=== PATIENT | male | born 1930 | race Caucasian/White ===

== ENCOUNTER 2017-12-15 14:03 | Inpatient (IN) | payer OTHER ==
[~2017-12-15] VITALS: Ht 182.9 cm; Wt 77.8 kg
[~2017-12-15 14:03] MED LIST: AMIO200T4 PO; ASPI81TA21 PO; CHOL100010 PO; INSUINJ4 SC; LISI20TA3 PO; MAGNTAB4 PO; TAMS0.4C59 PO; WARF5INJ PO
[2017-12-15] MEDS ORDERED: CEFTRIAXONE SOD INJ 1 GM ADDVIAL IV STA (15:25)
[2017-12-15] MEDS ORDERED: SODIUM CHLORIDE 0.9% 1000ML 1,000 ML IV STA (15:25)
[2017-12-15] MEDS ORDERED: ALBUT/IPRATROP 3MG/0.5MG NEB 3 ML VIAL INH STA (15:25)
[2017-12-15] MEDS ORDERED: AZITHROMYCIN IV 500 MG in DEXTROSE 5% 250ML 250 ML IV ONE (15:30)
--- NOTE | 2017-12-15 15:58 | DIAGNOSTIC IMAGING REPORT ---
CHEST ONE VIEW PORTABLE CLINICAL HISTORY: Fever, sepsis COMPARISON STUDY: 05/22/2013 FINDINGS: The heart is normal in size. There are left basal airspace opacities, suspicious for a pneumonitis. Films subsequent to treatment are recommended in follow-up.[ IMPRESSION: Subtle left basal airspace opacity suspicious for a pneumonia. Films subsequent to treatment are recommended in follow-up. Electronically signed by: Abdon Perry M.D. 12/15/2017 3:57 PM Dictated Date/Time: 12/15/2017 3:56 PM
[2017-12-15 16:13] LABS: HEMATOCRIT 42.9 % (42-52); HEMOGLOBIN 14.5 g/dL (14.0-18.0); MEAN CELL VOLUME 91.1 fL (80-100); MEAN CORPUSCULAR HEMOGLOBIN 30.8 pg (25-34); MEAN CORPUSCULAR HGB CONC 33.8 g/dl (32-36); MEAN PLATELET VOLUME 9.3 fL (7.4-10.4); PLATELET COUNT 192 K/uL (130-400); RED CELL DISTRIBUTION WIDTH CV 14.1 % (11.5-14.5); RED CELL DISTRIBUTION WIDTH SD 47.2 fL (36.4-46.3); WHITE BLOOD COUNT 16.16 K/uL (4.8-10.8)
[2017-12-15 16:35] LABS: INFLUENZA B ANTIGEN Neg for Influ B (NEG)
[2017-12-15 16:36] LABS: ALKALINE PHOSPHATASE 90 U/L (45-117); ALT/SGPT 28 U/L (12-78); AST/SGOT 19 U/L (15-37); BLOOD UREA NITROGEN 33 mg/dl (7-18); CARBON DIOXIDE 25 mmol/L (21-32); CKMB 2.9 ng/ml (0.5-3.6); CREATININE 2.29 mg/dl (0.60-1.40); GLUCOSE 365 mg/dl (70-99); POTASSIUM 4.1 mmol/L (3.5-5.1); SODIUM 130 mmol/L (136-145)
[2017-12-15] MEDS ORDERED: LISI-725 PO (16:37)
[2017-12-15] MEDS ORDERED: INSDGI SC (16:37)
[2017-12-15] MEDS ORDERED: CHOL20007 PO (16:37)
[2017-12-15] MEDS ORDERED: CMD5 PO (16:37)
[2017-12-15] MEDS ORDERED: PRLSR20 PO (16:37)
[2017-12-15] MEDS ORDERED: TAMS0.4C38 PO (16:37)
[2017-12-15] MEDS ORDERED: CRD200 PO (16:37)
[2017-12-15 16:39] LABS: BASO % 0.1 %; BASO ABS # 0.02 K/uL (0-0.2); IG# 0.42 K/uL (0.00-0.02); LYMPH % 6.5 %; LYMPH ABS # 1.05 K/uL (1.2-3.4); MONO % 8.5 %; MONO ABS # 1.38 K/uL (0.11-0.59); NEUT % 82.3 %; NEUT ABS # 13.29 K/uL (1.4-6.5)
[2017-12-15 16:41] LABS: INR 4.5 (0.9-1.1)
[2017-12-15 16:42] LABS: PTT PATIENT 54.1 SECONDS (21.0-31.0)
[2017-12-15] MEDS ORDERED: INSULIN HUMAN REGULAR PER UNIT 10 UNITS in SYRINGE 0 ML IV STA (17:09)
[2017-12-15] MEDS ORDERED: INSULIN IV INFUSION PROTOCOL STA (17:09)
[2017-12-15] MEDS ORDERED: MAGNESIUM HYDROXIDE SUSP 30 ML UDC PO PRN (17:15)
[2017-12-15] MEDS ORDERED: ALUMINUM/MAGNESIUM/SIMETH (MAALOX MAX) 30 ML UDC PO PRN (17:15)
[2017-12-15] MEDS ORDERED: POLYETHYLENE (MIRALAX) 17 GM PACK PO PRN (17:15)
[2017-12-15] MEDS ORDERED: ONDANSETRON INJ 2 MG/ML 2 ML VIAL IV PRN (17:15)
[2017-12-15] MEDS ORDERED: HHS GOAL RANGE 250-350 mg/dl ONE (17:15)
[2017-12-15] MEDS ORDERED: SEVERE STRESS LEVEL ONE (17:15)
[2017-12-15] MEDS ORDERED: PIPERACILL/TAZOBAC CONSULT ACTIVE PRN (17:30)
--- NOTE | 2017-12-15 17:33 | EMERGENCY ROOM VISIT NOTE ---
History Report prepared by Jacob: Martin Del Castillo Under the Supervision of: Dr. Edgar Mendieta D.O. First contact with patient: 15:18 Chief Complaint: COUGH Stated Complaint: COUGH History of Present Illness The patient is an 87 year old male who presents to the Emergency Room with complaints of a persistent cough that began roughly two weeks ago. The patient' s notes that the patient has been coughing for two weeks, so she took him to see his PCP at [facility] today. She did not like the way his breath sounds sounded to her so she suggested he go to the emergency department immediately. The patient notes that his cough has been producing a yellow-green mucous. He also complains of some unusual shortness of breath with exertion and worsening fatigue, but denies any chest pain. The patient has never been on oxygen at home before. The patient has a healing laceration above his right eye and notes that it was due to a mechanical fall. His daughter added that he is unsteady on his feet because of back complications. Source of History: patient, family Onset: 2 weeks [employer] Position: other (Respiratory) Quality: other (Cough) Timing: other (Persistent) Associated Symptoms: + SOB, No chest pain Review of Systems See HPI for pertinent positives & negatives. A total of 10 systems reviewed and were otherwise negative. Past Medical & Surgical Medical Problems: (1) Hyperglycemia due to type 2 diabetes mellitus (2) Pneumonia (3) Reduced LVEF Family History Omitted secondary to age. Social History Smoking Status: Never Smoker Drug Use: none Marital Status: Housing Status: lives with significant other Occupation Status: retired Current/Historical Medications Scheduled Amiodarone HCl (Amiodarone HCl), 200 MG PO DAILY Cholecalciferol (Vitamin D3), 2,000 UNITS PO DAILY Insulin Glargine (Lantus), 22 UNITS SC DAILY Lisinopril (Zestril), 20 MG PO BID Omeprazole (Prilosec), 20 MG PO DAILY Tamsulosin Hcl (Flomax), 0.4 MG PO BID Warfarin Sod (Coumadin), 2.5-5 MG PO UD Allergies Coded Allergies: No Known Allergies (Unverified , 05/19/13) Physical Exam Vital Signs Date Time Temp Pulse Resp B/P (MAP) Pulse Ox O2 Delivery O2 Flow Rate FiO2 12/15/17 17:30 71 20 133/82 93 Nasal Cannula 2.0 12/15/17 16:44 73 12/15/17 16:31 73 20 155/64 95 Nasal Cannula 2.0 12/15/17 15:26 70 24 159/66 95 Nasal Cannula 2.0 12/15/17 14:11 Nasal Cannula 2.0 12/15/17 14:11 86 Room Air 12/15/17 14:07 36.9 75 24 135/72 86 Room Air Physical Exam CONSTITUTIONAL/VITAL SIGNS: Reviewed / noted above. GENERAL: Non-toxic in appearance. INTEGUMENTARY: Warm, dry, and [place]. HEAD: Normocephalic. EYES: without scleral icterus or trauma. ENT/OROPHARYNX: clear and moist. LYMPHADENOPATHY/NECK: Is supple without lymphadenopathy or meningismus. RESPIRATORY: There is scattered rhonchi and wheezes bilaterally. Frequent cough on exam. CARDIOVASCULAR: Regular rate and rhythm. GI/ABDOMEN: Soft and nontender. No organomegaly or pulsatile mass. No rebound or guarding. Normal bowel sounds. EXTREMITIES: Warm and well perfused. BACK: No CVA tenderness. NEUROLOGICAL: Intact without focal deficits. PSYCHIATRIC: normal affect. MUSCULOSKELETAL: Normally developed with good muscle tone. Medical Decision & Procedures ER Provider Diagnostic Interpretation: Radiology results as stated below per my review and radiologist interpretation: CHEST ONE VIEW PORTABLE CLINICAL HISTORY: Fever, sepsis COMPARISON STUDY: 05/22/2013 FINDINGS: The heart is normal in size. There are left basal airspace opacities, suspicious for a pneumonitis. Films subsequent to treatment are recommended in follow-up.[ IMPRESSION: Subtle left basal airspace opacity suspicious for a pneumonia. Films subsequent to treatment are recommended in follow-up. Electronically signed by: Abdon Perry M.D. 12/15/2017 3:57 PM Dictated Date/Time: 12/15/2017 3:56 PM Laboratory Results 12/15/17 15:40 Red Blood Count 4.71, Mean Corpuscular Volume 91.1, Mean Corpuscular Hemoglobin 30.8, Mean Corpuscular Hemoglobin Concent 33.8, Mean Platelet Volume 9.3, Neutrophils (%) (Auto) 82.3, Lymphocytes (%) (Auto) 6.5, Monocytes (%) (Auto) 8.5, Eosinophils (%) (Auto) 0.0, Basophils (%) (Auto) 0.1, Neutrophils # (Auto) 13.29, Lymphocytes # (Auto) 1.05, Monocytes # (Auto) 1.38, Eosinophils # (Auto) 0.00, Basophils # (Auto) 0.02 12/15/17 15:40 Test 12/15/17 15:40 12/15/17 16:11 12/15/17 17:14 White Blood Count 16.16 K/uL (4.8-10.8) Red Blood Count 4.71 M/uL (4.7-6.1) Hemoglobin 14.5 g/dL (14.0-18.0) Hematocrit 42.9 % (42-52) Mean Corpuscular Volume 91.1 fL (80-100) Mean Corpuscular Hemoglobin 30.8 pg (25-34) Mean Corpuscular Hemoglobin Concent 33.8 g/dl (32-36) Platelet Count 192 K/uL (130-400) Mean Platelet Volume 9.3 fL (7.4-10.4) Neutrophils (%) (Auto) 82.3 % Lymphocytes (%) (Auto) 6.5 % Monocytes (%) (Auto) 8.5 % Eosinophils (%) (Auto) 0.0 % Basophils (%) (Auto) 0.1 % Neutrophils # (Auto) 13.29 K/uL (1.4-6.5) Lymphocytes # (Auto) 1.05 K/uL (1.2-3.4) Monocytes # (Auto) 1.38 K/uL (0.11-0.59) Eosinophils # (Auto) 0.00 K/uL (0-0.5) Basophils # (Auto) 0.02 K/uL (0-0.2) RDW Standard Deviation 47.2 fL (36.4-46.3) RDW Coefficient of Variation 14.1 % (11.5-14.5) Immature Granulocyte % (Auto) 2.6 % Immature Granulocyte # (Auto) 0.42 K/uL (0.00-0.02) Dohle Bodies OCCASIONAL Prothrombin Time 45.7 SECONDS (9.0-12.0) Prothromb Time International Ratio 4.5 (0.9-1.1) Activated Partial Thromboplast Time 54.1 SECONDS (21.0-31.0) Partial Thromboplastin Ratio 2.1 Anion Gap 10.0 mmol/L (3-11) Est Creatinine Clear Calc Drug Dose 25.4 ml/min Estimated GFR () 28.9 Estimated GFR (Non- 24.9 BUN/Creatinine Ratio 14.2 (10-20) Calcium Level 9.0 mg/dl (8.5-10.1) Total Bilirubin 1.0 mg/dl (0.2-1) Direct Bilirubin 0.3 mg/dl (0-0.2) Aspartate Amino Transf (AST/SGOT) 19 U/L (15-37) Alanine Aminotransferase (ALT/SGPT) 28 U/L (12-78) Alkaline Phosphatase 90 U/L (45-117) Total Creatine Kinase 111 U/L (39-308) Creatine Kinase MB 2.9 ng/ml (0.5-3.6) Creatine Kinase MB Ratio 2.6 (0-3.0) Troponin I < 0.015 ng/ml (0-0.045) Total Protein 8.0 gm/dl (6.4-8.2) Albumin 3.0 gm/dl (3.4-5.0) Beta-Hydroxybutyric Acid 31.08 mg/dL (0.2-2.81) Influenza Type A Antigen Neg for Influ A (NEG) Influenza Type B Antigen Neg for Influ B (NEG) Laboratory results as stated above per my review. Medications Administered Medications (Trade) Dose Ordered Sig/Krystal Route Start Time Stop Time Status Last Admin Dose Admin Sodium Chloride 1,000 ml @ 250 mls/hr Q4H STAT IV 12/15/17 15:25 12/15/17 19:24 12/15/17 16:02 250 MLS/HR Albuterol/ Ipratropium (Duoneb) 3 ml NOW STAT INH 12/15/17 15:25 12/15/17 15:29 DC 12/15/17 16:02 3 ML Ceftriaxone Sodium (Rocephin Inj) 1 gm NOW STAT IV 12/15/17 15:25 12/15/17 15:29 DC 12/15/17 16:02 1 GM Azithromycin 500 mg/Dextrose 255 ml @ 125 mls/hr ONE ONCE IV 12/15/17 15:30 12/15/17 17:32 DC 12/15/17 16:24 125 MLS/HR ECG Per My Interpretation Indication: SOB/dyspnea Rate (beats per minute): 67 Rhythm: normal sinus Findings: other (No ST elevations or depressions, normal axis) ED Course 1523: Previous medical records were reviewed. The patient was evaluated in room B10. A complete history and physical examination was performed. 1525: Ordered Rocephin 1 gm IV, Duoneb 3 mL INH, Sodium Chloride 1000 mL @ 250 mL/hr IV. 1530: Ordered Azithromycin 500 mg/Dextrose 255 mL @ 125 mL/hr IV. 165: I discussed the case with Dr. Gideon Blackburn. She will evaluate the patient for further treatment. Medical Decision the differential was considered includes acute myocardial infarction, acute coronary syndrome, myocarditis, pericarditis, pericardial effusions /tamponade, esophageal perforation, pulmonary embolism, pneumonia, pneumothorax, cardiomyopathy, congestive heart, anemia , COPD/asthma exacerbation. This is an 87-year-old male who presents to the ED with a chief complaint of a cough and shortness of breath. The patient's symptoms have been ongoing for the past 2 weeks but worsening. He reports a green and yellow productive cough with exertional dyspnea. He has also had decreased appetite and energy. The patient exam as noted above. His oxygen saturations were noted to be 86% on room air. He does not use home oxygen. His white count was 16,000, INR is 4.5. He is on Coumadin. Glucose was 365. BUN and creatinine are slightly elevated. Troponin is negative, flu swab was negative. The patient was treated with a DuoNeb treatment, IV fluids, IV Zofran and IV Rocephin. He will be seen by the hospitalist for further inpatient evaluation and care. Consults Time Called: 1641 Consulting Physician: Dr. Gideon Blackburn Returned Call: [phone] I discussed the case with Dr. Gideon Blackburn. She will evaluate the patient for further treatment. Impression Primary Impression: Pneumonia Additional Impressions: Hypoxia Hyperglycemia Renal insufficiency Scribe Attestation The scribe's documentation has been prepared under my direction and personally reviewed by me in its entirety. I confirm that the note above accurately reflects all work, treatment, procedures, and medical decision making performed by me. Departure Information Dispostion Being Evaluated By Hospitalist Patient Instructions My [facility] Problem Qualifiers
[2017-12-15] MEDS ORDERED: PHARMACY GLYCEMIC MGMT CONSULT PRN (18:01)
[2017-12-15 18:15] VITALS: BP 155/66; PULSE 74; TEMP 37.1; O2SAT 91
[2017-12-15] MEDS ORDERED: INSULIN HUMAN REGULAR IV BOLUS 2 UNIT in SYRINGE 0 ML IV SCH (19:15)
[2017-12-15] MEDS ORDERED: PIPERACILL/TAZOBAC IV 3.375 GM in DEXTROSE 5% 100ML 100 ML IV ONE (19:30)
[2017-12-15] MEDS ORDERED: SODIUM CHLORIDE 0.9% 1000ML 1,000 ML IV SCH (19:30)
[2017-12-15] MEDS: INSULIN REGULAR 250 UNITS in SODIUM CHLORIDE 0.9% 250ML 250 ML IV SCH ×2 (19:49→21:10)
--- NOTE | 2017-12-15 19:59 | History and Physical ---
History & Physical Date & Time of Service: Dec 15, 2017 at 19:59 Chief Complaint: Hyperglycemia Due To Type 2 Diabetes Mellitus Primary Care Physician: Angelia Ward M.D. (MEDICAL) History of Present Illness Source: patient 87 yo M with past medical hx of Aflutter on Coumadin , Type 2 DM , HTN was seen at [facility] for ongoing non productive cough for 2 weeks found to be markedly hypoxic sent to ER , on arrival to ER pt's Spo2 was 86 % in RA improved to 95 % with 2 L 02 via nasal canula denies of any flu like symptom -no fever , body ache, or headache has been feeling very tired and wiped out Cxray showed L lower lobe pneumonia HHS with Hyperglycemia BSG > 300 , elevated beta hydroxybutyrate level , OK[place] Social History Smoking Status: Never Smoker Drug Use: none Marital Status: Housing status: lives with family Occupational Status: retired Immunizations History of Influenza Vaccine: Yes History of Tetanus Vaccine?: Yes History of Pneumococcal: Yes History of Hepatitis B Vaccine: No Multi-Drug Resistant Organisms History of MDRO: No Allergies Coded Allergies: No Known Allergies (Unverified , 05/19/13) Home Medications Scheduled Amiodarone HCl (Amiodarone HCl), 200 MG PO DAILY Cholecalciferol (Vitamin D3), 2,000 UNITS PO DAILY Insulin Glargine (Lantus), 22 UNITS SC DAILY Lisinopril (Zestril), 20 MG PO BID Omeprazole (Prilosec), 20 MG PO DAILY Tamsulosin Hcl (Flomax), 0.4 MG PO BID Warfarin Sod (Coumadin), 2.5-5 MG PO UD Review of Systems Constitutional: + chills, + sweats, + weakness, + fatigue Respiratory: + cough, + sputum, + wheezing, + shortness of breath, + dyspnea on exertion, + dyspnea at rest Cardiovascular: No chest pain, No orthopnea, No PND, No edema, No claudication , No palpitations, No problem reported Abdomen: + nausea, + problem reported (poor appetite ), No pain, No vomiting, No diarrhea, No constipation, No GI bleeding Musculoskeletal: No joint pain, No muscle pain, No swelling, No calf pain, No problem reported Genitourinary - Male: No hematuria, No dysuria, No urinary frequency, No urinary urgency, No urinary hesitancy, No urinary retention, No urinary incontinence, No penile discharge, No lesions, No impotence, No problem reported Neurologic: + weakness, + numbness/tingling, + vertigo Physical Exam Vital Signs Date Time Temp Pulse Resp B/P (MAP) Pulse Ox O2 Delivery O2 Flow Rate FiO2 12/15/17 18:15 37.1 74 20 155/66 (95) 91 Nasal Cannula 2.0 12/15/17 17:30 71 20 133/82 93 Nasal Cannula 2.0 12/15/17 16:44 73 12/15/17 16:31 73 20 155/64 95 Nasal Cannula 2.0 12/15/17 15:26 70 24 159/66 95 Nasal Cannula 2.0 12/15/17 14:11 Nasal Cannula 2.0 12/15/17 14:11 86 Room Air 12/15/17 14:07 36.9 75 24 135/72 86 Room Air General Appearance: no apparent distress Head: normocephalic, atraumatic Eyes: PERRL, EOMI, sclerae normal Neck: no JVD, no carotid bruits, trachea midline Respiratory/Chest: + decreased breath sounds, + crackles (at base ) Cardiovascular: regular rate, rhythm, no JVD, normal peripheral pulses Abdomen/GI: normal bowel sounds, non tender, soft Extremities/Musculoskelatal: normal inspection, no calf tenderness, normal capillary refill, no pedal edema Neurologic/Psych: no motor/sensory deficits, alert, normal mood/affect, oriented x 3 Diagnostics Laboratory Results Results Past 24 Hours Test 12/15/17 15:40 12/15/17 16:11 12/15/17 17:43 12/15/17 17:51 Range/Units White Blood Count 16.16 4.8-10.8 K/uL Red Blood Count 4.71 4.7-6.1 M/uL Hemoglobin 14.5 14.0-18.0 g/dL Hematocrit 42.9 42-52 % Mean Corpuscular Volume 91.1 80-100 fL Mean Corpuscular Hemoglobin 30.8 25-34 pg Mean Corpuscular Hemoglobin Concent 33.8 32-36 g/dl Platelet Count 192 130-400 K/uL Mean Platelet Volume 9.3 7.4-10.4 fL Neutrophils (%) (Auto) 82.3 % Lymphocytes (%) (Auto) 6.5 % Monocytes (%) (Auto) 8.5 % Eosinophils (%) (Auto) 0.0 % Basophils (%) (Auto) 0.1 % Neutrophils # (Auto) 13.29 1.4-6.5 K/uL Lymphocytes # (Auto) 1.05 1.2-3.4 K/uL Monocytes # (Auto) 1.38 0.11-0.59 K/uL Eosinophils # (Auto) 0.00 0-0.5 K/uL Basophils # (Auto) 0.02 0-0.2 K/uL RDW Standard Deviation 47.2 36.4-46.3 fL RDW Coefficient of Variation 14.1 11.5-14.5 % Immature Granulocyte % (Auto) 2.6 % Immature Granulocyte # (Auto) 0.42 0.00-0.02 K/uL Dohle Bodies OCCASIONAL Prothrombin Time 45.7 9.0-12.0 SECONDS Prothromb Time International Ratio 4.5 0.9-1.1 Activated Partial Thromboplast Time 54.1 21.0-31.0 SECONDS Partial Thromboplastin Ratio 2.1 Sodium Level 130 136-145 mmol/L Potassium Level 4.1 3.5-5.1 mmol/L Chloride Level 95 98-107 mmol/L Carbon Dioxide Level 25 21-32 mmol/L Anion Gap 10.0 3-11 mmol/L Blood Urea Nitrogen 33 7-18 mg/dl Creatinine 2.29 0.60-1.40 mg/dl Est Creatinine Clear Calc Drug Dose 25.4 ml/min Estimated GFR () 28.9 Estimated GFR (Non- 24.9 BUN/Creatinine Ratio 14.2 10-20 Random Glucose 365 70-99 mg/dl Calcium Level 9.0 8.5-10.1 mg/dl Total Bilirubin 1.0 0.2-1 mg/dl Direct Bilirubin 0.3 0-0.2 mg/dl Aspartate Amino Transf (AST/SGOT) 19 15-37 U/L Alanine Aminotransferase (ALT/SGPT) 28 12-78 U/L Alkaline Phosphatase 90 45-117 U/L Total Creatine Kinase 111 39-308 U/L Creatine Kinase MB 2.9 0.5-3.6 ng/ml Creatine Kinase MB Ratio 2.6 0-3.0 Troponin I < 0.015 0-0.045 ng/ml Total Protein 8.0 6.4-8.2 gm/dl Albumin 3.0 3.4-5.0 gm/dl Beta-Hydroxybutyric Acid 31.08 0.2-2.81 mg/dL Influenza Type A Antigen Neg for Influ A NEG Influenza Type B Antigen Neg for Influ B NEG Arterial Blood pH 7.41 7.35-7.45 Arterial Blood Partial Pressure CO2 36 35-46 mmHg Arterial Blood Partial Pressure O2 63 80-95 mm/Hg Arterial Blood HCO3 23 19-24 mmol/L Arterial Blood Oxygen Saturation 91.3 90-95 % Arterial Blood Base Excess -1.5 -9-1.8 mEq/L Arterial Blood Gas Delivery 2L O2 [place] Test POS POS Urine Color YELLOW Urine Appearance CLEAR CLEAR Urine pH 5.0 4.5-7.5 Urine Specific [place] 1.020 1.000-1.030 Urine Protein 1+ NEG Urine Glucose (UA) 3+ NEG Urine Ketones 2+ NEG Urine Occult Blood 3+ NEG Urine Nitrite NEG NEG Urine Bilirubin NEG NEG Urine Urobilinogen NEG NEG Urine Leukocyte Esterase NEG NEG Urine RBC 5-10 0-4 /hpf Urine WBC 1-5 0-5 /hpf Urine Epithelial Cells 20-30 0-5 /lpf Urine Bacteria NEG NEG Urine Hyaline Casts 1-5 0-5 /lpf Test 12/15/17 19:03 Range/Units Bedside Glucose 404 70-99 mg/dl Microbiology Results 12/15/17 Blood Culture, Received Pending 12/15/17 Blood Culture, Received Pending Diagnostic Radiology CHEST ONE VIEW PORTABLE CLINICAL HISTORY: Fever, sepsis COMPARISON STUDY: 05/22/2013 FINDINGS: The heart is normal in size. There are left basal airspace opacities, suspicious for a pneumonitis. Films subsequent to treatment are recommended in follow-up.[ IMPRESSION: Subtle left basal airspace opacity suspicious for a pneumonia. Films subsequent to treatment are recommended in follow-up. EKG Vent. rate 67 BPM NV interval 178 ms QRS duration 98 ms QT/QTc 448/473 ms P-R-T axes 60 53 65 Normal sinus rhythm Normal ECG When compared with ECG of 22-MAY-2013 09:44, No significant change was found Confirmed by LUCILLE SANTOS ([id number]) on 12/15/2017 6:43:12 PM Normal EKG, No change from prior EKG Impression Assessment and Plan ACUTE HYPOXEMIC RESPIRATORY FAILURE presented with SOB /cough spo2 86 in RA , improved with supplemental 02 due to pneumonia cont supplemental 02 ordered for Neb tx Steroid avoided as no significant wheeze noted cont wean off 02 as respiratory status improves LEFT LOWER LOBE PNEUMONIA community acquired pneumonia ordered for Zosyn ( for pseudomonal coverage in setting of Type 2 DM / hyperglycemia ) blood and sputum culture ordered Abx can be adjusted as results available HYPERGLYCEMIA /HHS /TYPE 2 DM on Lantus 22 U HS mentions has been taking his insulin as directed has been feeling very weak and tired for past few days possible hyperglycemia due to acute illness started on IV insulin protocol pharmacy consulted for glycemic management Hb A1c 9.8 on 09/2017 Hb A1c in AM lab OKSANA ON CKD STAGE 3 due to above cont IV fluid resuscitation follow PRP HYPONATREMIA : due to hyperglycemia cont IVF with NSS follow PRP HX OF AFLUTTER : rate and rhythm controlled cont amiodarone INR elevated > 4 , Coumadin on hold FULL CODE DVT PROPHYLAXIS : INR > 4 DISPOSITION ; PT/OT prior to discharge medicine follow up with Dr Christiansen VTE Prophylaxis VTE Risk Assessment Done? Y/N: Yes Risk Level: Moderate Additional Copies To Angelia Ward M.D. (MEDICAL)
[2017-12-15 20:00] VITALS: BP 155/66; PULSE 74; TEMP 37.1; O2SAT 91; BMI 24.5
[2017-12-15 20:40] LABS: BLOOD UREA NITROGEN 32 mg/dl (7-18); CALCIUM 8.7 mg/dl (8.5-10.1); CARBON DIOXIDE 23 mmol/L (21-32); CREATININE 2.18 mg/dl (0.60-1.40); SODIUM 132 mmol/L (136-145)
[2017-12-15 20:41] LABS: GLUCOSE 384 mg/dl (70-99)
[2017-12-15] MEDS: INSULIN ASPART 100 UNITS/ML 3 ML PEN SC SCH ×2 (21:00→21:12)
[2017-12-15] MEDS ORDERED: LEVALBUTEROL/IPRATROPIUM NEB INH SCH (21:00)
[2017-12-15 21:25] LABS: POTASSIUM 4.3 mmol/L (3.5-5.1)
[2017-12-15 22:42] LABS: INFLUENZA A PCR POS for Influ A (NEG); INFLUENZA B PCR Neg for Influ B (NEG)
[2017-12-16] VITALS (15 sets, daily range): BP systolic 108–166; BP diastolic 52–76; PULSE 62–113; TEMP 36.4–37.6; O2SAT 91–96; BMI 24.7
[2017-12-16] MEDS: PIPERACILL/TAZOBAC IV 3.375 GM in DEXTROSE 5% 100ML IV SCH ×4 (00:03→23:52)
[2017-12-16] MEDS: INSULIN REGULAR 250 UNITS in SODIUM CHLORIDE 0.9% 250ML 250 ML IV SCH ×7 (00:52→12:36)
[2017-12-16] MEDS ORDERED: NURSING VERBAL MED ORDER ONE ×2 (02:00→16:45)
[2017-12-16] MEDS: D5W AND NSS 1,000 ML IV SCH ×2 (02:24→07:43)
[2017-12-16] MEDS: LEVALBUTEROL 1.25MG/0.5ML NEB INH SCH ×4 (03:00→19:41)
[2017-12-16] MEDS: IPRATROPIUM BROMIDE NEB SOLN 0.02% 2.5 ML VIAL INH SCH ×4 (03:00→19:41)
[2017-12-16 06:10] LABS: HEMOGLOBIN 12.5 g/dL (14.0-18.0); MEAN CORPUSCULAR HEMOGLOBIN 29.6 pg (25-34); MEAN CORPUSCULAR HGB CONC 32.9 g/dl (32-36); MEAN PLATELET VOLUME 9.1 fL (7.4-10.4); PLATELET COUNT 175 K/uL (130-400); RED CELL DISTRIBUTION WIDTH CV 13.9 % (11.5-14.5); RED CELL DISTRIBUTION WIDTH SD 46.1 fL (36.4-46.3); WHITE BLOOD COUNT 17.72 K/uL (4.8-10.8)
[2017-12-16 06:42] LABS: INR 4.5 (0.9-1.1)
[2017-12-16 06:55] LABS: CALCIUM 8.1 mg/dl (8.5-10.1); CREATININE 1.77 mg/dl (0.60-1.40); POTASSIUM 3.4 mmol/L (3.5-5.1)
[2017-12-16 07:15] LABS: HEMOGLOBIN A1C 10.4 % (4.5-5.6)
[2017-12-16] MEDS: TAMSULOSIN HCL 0.4 MG CAP PO SCH (07:42)
[2017-12-16] MEDS: PANTOprazole SOD 40 MG TAB PO SCH (07:42)
[2017-12-16] MEDS: AMIODARONE 200 MG TAB PO SCH (07:42)
[2017-12-16] MEDS: CHOLECALCIFEROL 1000 INTER.UNIT TAB PO SCH (07:43)
[2017-12-16] MEDS: INSULIN ASPART 100 UNITS/ML 3 ML PEN SC SCH ×4 (08:14→20:50)
[2017-12-16] MEDS ORDERED: INSULIN GLARGINE SOLOSTAR 100 UNITS/ML 3 ML PEN SC ONE (11:00)
[2017-12-16] MEDS ORDERED: POTASSIUM CHLORIDE 10 MEQ TABCR PO STA (11:03)
[2017-12-16] MEDS: SODIUM CHLORIDE 0.9% 1000ML 1,000 ML IV SCH ×3 (11:04→23:52)
--- NOTE | 2017-12-16 14:41 | Pharmacy Progress Note ---
Pharmacy Glycemic Short Note 2 Date of Service Dec 16, 2017. OUTPATIENT ANTIDIABETIC REGIMEN: * Lantus 22 units SQ daily * HbA1c: 10.4% (12/15/17) ASSESSMENT: * Mr Burgess is an 87yo diabetic male admitted with respiratory infx. * Patient was significantly hyperglycemic (?HHS) on admission, therefore an insulin infusion was started. * Insulin infusion continues to run at greater than 2 units/hr, despite the patient receiving a dose of Lantus this morning. PLAN FOR INPATIENT GLYCEMIC CONTROL: * Lantus 20 units x1 dose given this am * Continue insulin gtt until at least two consecutive BSGs are below 180mg/dL AND insulin gtt rate is 2units/hr or less * Bolus insulin * Nutritional / Prandial insulin per carb ratio of 1 unit per 8 grams CHO consumed PLAN FOR DISCHARGE: * Current A1c (10.4%) indicates sub-optimal glycemic control as an outpatient. * CDE spoke with patient today and it seems that he is compliant with his Lantus. * Consider adding prandial coverage or increasing Lantus on discharge (although , patient reports reasonable fasting BSGs). * Recommend f/u with PCP for DM management after discharge to optimize A1c. * Recommend increase in SMBG after discharge until BSGs improve.
--- NOTE | 2017-12-16 15:44 | Progress Note ---
Internal Med Progress Note Date of Service: Dec 16, 2017. Provider Documentation: SUBJECTIVE: The patient was seen and examined Cough for 1 week ,no fever,chills or Body aches with it Remains generally weak Denies any other symptoms OBJECTIVE: Vital Signs-as noted below Exam: General-NO distress at rest Eyes-normal ENT-normal Neck-supple Lungs-decreased breath sound bilaterally Occasional crackles at the bases Heart-Regular,no murmur Abdomen-Benign,no masses,bowel sound present Extremities-NO edema Neuro-AAOx3 Lab data as noted below. ASSESSMENT & PLAN: Assessment and Plan ACUTE HYPOXEMIC RESPIRATORY FAILURE Presented with SOB /cough for 1 week and noted to have spo2 86 in RA , improved with supplemental 02 Secondary to pneumonia Steroid avoided as no significant wheeze noted and the patient is diabetic Cont wean off 02 as respiratory status improves Influenza A positive-On Flu isolation. Not been put on any Flu medications due to symptoms >1 week and no acute flu symptoms now LEFT LOWER LOBE PNEUMONIA Community acquired pneumonia Started on IV Zosyn ( for pseudomonal coverage in setting of Type 2 DM / hyperglycemia ) Blood and sputum culture ordered Abx can be adjusted as results available Clinically not any better today HYPERGLYCEMIA WITH TYPE 2 DM On Lantus 22 U HS Started on IV insulin protocol Pharmacy consulted for glycemic management Hb A1c 9.8 on 09/2017 Hb A1c 10.4 now Will change to regular insulin regimen OKSANA ON CKD STAGE 3 due to above cont IV fluid resuscitation follow PRP-renal function is improving HYPONATREMIA : Due to hyperglycemia cont IVF with NSS follow PRP -improving HX OF A FLUTTER : Rate and rhythm controlled Cont amiodarone INR elevated > 4 , Coumadin on hold FULL CODE DISPOSITION ; PT/OT prior to discharge medicine follow up with Dr Christiansen Vital Signs: Date Time Temp Pulse Resp B/P (MAP) Pulse Ox O2 Delivery O2 Flow Rate FiO2 12/16/17 14:50 37.5 62 20 108/57 (74) 95 12/16/17 14:21 65 16 95 Nasal Cannula 2.0 12/16/17 14:00 96 12/16/17 12:00 91 Nasal Cannula 2.0 12/16/17 11:19 36.9 70 20 113/52 (72) 91 12/16/17 08:00 92 Nasal Cannula 2.0 12/16/17 07:37 37.3 71 20 166/68 (100) 92 12/16/17 07:30 71 18 91 Nasal Cannula 2.0 12/16/17 04:24 37.6 67 18 131/66 (87) 92 2.0 12/16/17 04:00 Nasal Cannula 2.0 12/16/17 03:36 76 18 91 Nasal Cannula 2.0 12/16/17 00:03 37.5 72 20 132/63 (86) 92 2.0 12/16/17 00:00 Nasal Cannula 2.0 12/15/17 20:00 37.1 74 20 155/66 91 Nasal Cannula 2.0 12/15/17 18:15 37.1 74 20 155/66 (95) 91 Nasal Cannula 2.0 12/15/17 17:30 71 20 133/82 93 Nasal Cannula 2.0 12/15/17 16:44 73 12/15/17 16:31 73 20 155/64 95 Nasal Cannula 2.0 Lab Results: Results Past 24 Hours Test 12/15/17 15:40 12/15/17 16:11 12/15/17 17:43 12/15/17 17:51 Range/Units White Blood Count 16.16 4.8-10.8 K/uL Red Blood Count 4.71 4.7-6.1 M/uL Hemoglobin 14.5 14.0-18.0 g/dL Hematocrit 42.9 42-52 % Mean Corpuscular Volume 91.1 80-100 fL Mean Corpuscular Hemoglobin 30.8 25-34 pg Mean Corpuscular Hemoglobin Concent 33.8 32-36 g/dl Platelet Count 192 130-400 K/uL Mean Platelet Volume 9.3 7.4-10.4 fL Neutrophils (%) (Auto) 82.3 % Lymphocytes (%) (Auto) 6.5 % Monocytes (%) (Auto) 8.5 % Eosinophils (%) (Auto) 0.0 % Basophils (%) (Auto) 0.1 % Neutrophils # (Auto) 13.29 1.4-6.5 K/uL Lymphocytes # (Auto) 1.05 1.2-3.4 K/uL Monocytes # (Auto) 1.38 0.11-0.59 K/uL Eosinophils # (Auto) 0.00 0-0.5 K/uL Basophils # (Auto) 0.02 0-0.2 K/uL RDW Standard Deviation 47.2 36.4-46.3 fL RDW Coefficient of Variation 14.1 11.5-14.5 % Immature Granulocyte % (Auto) 2.6 % Immature Granulocyte # (Auto) 0.42 0.00-0.02 K/uL Dohle Bodies OCCASIONAL Prothrombin Time 45.7 9.0-12.0 SECONDS Prothromb Time International Ratio 4.5 0.9-1.1 Activated Partial Thromboplast Time 54.1 21.0-31.0 SECONDS Partial Thromboplastin Ratio 2.1 Sodium Level 130 136-145 mmol/L Potassium Level 4.1 3.5-5.1 mmol/L Chloride Level 95 98-107 mmol/L Carbon Dioxide Level 25 21-32 mmol/L Anion Gap 10.0 3-11 mmol/L Blood Urea Nitrogen 33 7-18 mg/dl Creatinine 2.29 0.60-1.40 mg/dl Est Creatinine Clear Calc Drug Dose 25.4 ml/min Estimated GFR () 28.9 Estimated GFR (Non- 24.9 BUN/Creatinine Ratio 14.2 10-20 Random Glucose 365 70-99 mg/dl Estimated Average Glucose 252 mg/dl Hemoglobin A1c 10.4 4.5-5.6 % Calcium Level 9.0 8.5-10.1 mg/dl Total Bilirubin 1.0 0.2-1 mg/dl Direct Bilirubin 0.3 0-0.2 mg/dl Aspartate Amino Transf (AST/SGOT) 19 15-37 U/L Alanine Aminotransferase (ALT/SGPT) 28 12-78 U/L Alkaline Phosphatase 90 45-117 U/L Total Creatine Kinase 111 39-308 U/L Creatine Kinase MB 2.9 0.5-3.6 ng/ml Creatine Kinase MB Ratio 2.6 0-3.0 Troponin I < 0.015 0-0.045 ng/ml Total Protein 8.0 6.4-8.2 gm/dl Albumin 3.0 3.4-5.0 gm/dl Beta-Hydroxybutyric Acid 31.08 0.2-2.81 mg/dL Influenza Type A Antigen Neg for Influ A NEG Influenza Type B Antigen Neg for Influ B NEG Arterial Blood pH 7.41 7.35-7.45 Arterial Blood Partial Pressure CO2 36 35-46 mmHg Arterial Blood Partial Pressure O2 63 80-95 mm/Hg Arterial Blood HCO3 23 19-24 mmol/L Arterial Blood Oxygen Saturation 91.3 90-95 % Arterial Blood Base Excess -1.5 -9-1.8 mEq/L Arterial Blood Gas Delivery 2L O2 Santana Test POS POS Urine Color YELLOW Urine Appearance CLEAR CLEAR Urine pH 5.0 4.5-7.5 Urine Specific Dania 1.020 1.000-1.030 Urine Protein 1+ NEG Urine Glucose (UA) 3+ NEG Urine Ketones 2+ NEG Urine Occult Blood 3+ NEG Urine Nitrite NEG NEG Urine Bilirubin NEG NEG Urine Urobilinogen NEG NEG Urine Leukocyte Esterase NEG NEG Urine RBC 5-10 0-4 /hpf Urine WBC 1-5 0-5 /hpf Urine Epithelial Cells 20-30 0-5 /lpf Urine Bacteria NEG NEG Urine Hyaline Casts 1-5 0-5 /lpf Test 12/15/17 19:03 12/15/17 19:51 12/15/17 20:46 12/15/17 21:00 Range/Units Bedside Glucose 404 310 70-99 mg/dl Sodium Level 132 136-145 mmol/L Potassium Level 4.3 3.5-5.1 mmol/L Chloride Level 96 98-107 mmol/L Carbon Dioxide Level 23 21-32 mmol/L Anion Gap 12.0 3-11 mmol/L Blood Urea Nitrogen 32 7-18 mg/dl Creatinine 2.18 0.60-1.40 mg/dl Est Creatinine Clear Calc Drug Dose 26.7 ml/min Estimated GFR () 30.6 Estimated GFR (Non- 26.4 BUN/Creatinine Ratio 14.6 10-20 Random Glucose 384 70-99 mg/dl Calcium Level 8.7 8.5-10.1 mg/dl Beta-Hydroxybutyric Acid 0.2-2.81 mg/dL Test 12/15/17 21:25 12/15/17 21:53 12/15/17 22:52 12/15/17 23:50 Range/Units Influenza Type A (RT-PCR) POS for Influ A NEG Influenza Type B (RT-PCR) Neg for Influ B NEG Bedside Glucose 267 242 234 70-99 mg/dl Test 12/16/17 00:48 12/16/17 01:45 12/16/17 02:50 12/16/17 03:14 Range/Units Bedside Glucose 266 154 123 125 70-99 mg/dl Test 12/16/17 03:34 12/16/17 04:03 12/16/17 05:35 12/16/17 06:00 Range/Units Bedside Glucose 132 215 70-99 mg/dl Random Glucose 166 224 70-99 mg/dl White Blood Count 17.72 4.8-10.8 K/uL Red Blood Count 4.22 4.7-6.1 M/uL Hemoglobin 12.5 14.0-18.0 g/dL Hematocrit 38.0 42-52 % Mean Corpuscular Volume 90.0 80-100 fL Mean Corpuscular Hemoglobin 29.6 25-34 pg Mean Corpuscular Hemoglobin Concent 32.9 32-36 g/dl RDW Standard Deviation 46.1 36.4-46.3 fL RDW Coefficient of Variation 13.9 11.5-14.5 % Platelet Count 175 130-400 K/uL Mean Platelet Volume 9.1 7.4-10.4 fL Prothrombin Time 45.7 9.0-12.0 SECONDS Prothromb Time International Ratio 4.5 0.9-1.1 Sodium Level 136 136-145 mmol/L Potassium Level 3.4 3.5-5.1 mmol/L Chloride Level 103 98-107 mmol/L Carbon Dioxide Level 24 21-32 mmol/L Anion Gap 9.0 3-11 mmol/L Blood Urea Nitrogen 28 7-18 mg/dl Creatinine 1.77 0.60-1.40 mg/dl Est Creatinine Clear Calc Drug Dose 32.9 ml/min Estimated GFR () 39.4 Estimated GFR (Non- 34.0 BUN/Creatinine Ratio 15.7 10-20 Calcium Level 8.1 8.5-10.1 mg/dl Magnesium Level 1.8 1.8-2.4 mg/dl Test 12/16/17 06:36 12/16/17 07:34 12/16/17 08:32 12/16/17 09:32 Range/Units Bedside Glucose 289 211 257 311 70-99 mg/dl Test 12/16/17 10:30 12/16/17 11:31 Range/Units Bedside Glucose 276 270 70-99 mg/dl Microbiology Results 12/15/17 Blood Culture, Received Pending 12/15/17 Blood Culture, Received Pending 12/15/17 Gram Stain - Final, Resulted 12/15/17 Sputum Culture - Preliminary, Resulted Staphylococcus Aureus
[2017-12-16] MEDS ORDERED: INSULIN GLARGINE SOLOSTAR 100 UNITS/ML 3 ML PEN SC SCH (21:00)
[2017-12-17] VITALS (12 sets, daily range): BP systolic 114–151; BP diastolic 65–79; PULSE 57–87; TEMP 36.3–38.4; O2SAT 92–97
[2017-12-17] MEDS: LEVALBUTEROL 1.25MG/0.5ML NEB INH SCH ×4 (01:40→18:59)
[2017-12-17] MEDS: IPRATROPIUM BROMIDE NEB SOLN 0.02% 2.5 ML VIAL INH SCH ×4 (01:40→18:59)
[2017-12-17] MEDS: SODIUM CHLORIDE 0.9% 1000ML 1,000 ML IV SCH ×3 (05:47→20:21)
[2017-12-17 07:10] LABS: HEMATOCRIT 37.3 % (42-52); HEMOGLOBIN 12.1 g/dL (14.0-18.0); MEAN CELL VOLUME 91.6 fL (80-100); MEAN CORPUSCULAR HEMOGLOBIN 29.7 pg (25-34); MEAN CORPUSCULAR HGB CONC 32.4 g/dl (32-36); MEAN PLATELET VOLUME 9.3 fL (7.4-10.4); PLATELET COUNT 214 K/uL (130-400); RED CELL DISTRIBUTION WIDTH SD 47.1 fL (36.4-46.3); WHITE BLOOD COUNT 18.14 K/uL (4.8-10.8)
[2017-12-17 07:25] LABS: INR 3.6 (0.9-1.1)
[2017-12-17] MEDS: PIPERACILL/TAZOBAC IV 3.375 GM in DEXTROSE 5% 100ML IV SCH ×2 (07:35→16:22)
[2017-12-17] MEDS: TAMSULOSIN HCL 0.4 MG CAP PO SCH (07:35)
[2017-12-17] MEDS: PANTOprazole SOD 40 MG TAB PO SCH (07:35)
[2017-12-17] MEDS: AMIODARONE 200 MG TAB PO SCH (07:35)
[2017-12-17] MEDS: CHOLECALCIFEROL 1000 INTER.UNIT TAB PO SCH (07:35)
[2017-12-17 07:43] LABS: CALCIUM 7.6 mg/dl (8.5-10.1); CREATININE 1.77 mg/dl (0.60-1.40); POTASSIUM 3.4 mmol/L (3.5-5.1)
[2017-12-17] MEDS: ACETAMINOPHEN 325 MG TAB PO PRN ×2 (07:45→08:50)
[2017-12-17] MEDS ORDERED: VANCOMYCIN CONSULT ACTIVE PRN (07:45)
[2017-12-17] MEDS ORDERED: VANCOMYCIN IV 2,000 MG in SODIUM CHLORIDE 0.9% 500ML 500 ML IV ONE (09:00)
[2017-12-17] MEDS: INSULIN GLARGINE SOLOSTAR 100 UNITS/ML 3 ML PEN SC SCH ×2 (09:17→20:25)
[2017-12-17] MEDS: INSULIN ASPART 100 UNITS/ML 3 ML PEN SC SCH ×4 (09:17→20:24)
--- NOTE | 2017-12-17 10:31 | Pharmacy Progress Note ---
Pharmacy Glycemic Short Note 2 Date of Service Dec 17, 2017. OUTPATIENT ANTIDIABETIC REGIMEN: * Lantus 22 units SQ daily * HbA1c: 10.4% (12/15/17) ASSESSMENT: * Mr Tevin Burgess if an 87 y/o M with a PMH of Aflutter on warfarin, HTN, and poorly controlled DM who presented with hyperglycemia and a LLL pneumonia. He was originally placed on an insulin infusion with dextrose starting when BSG less than 200 mg/dL. With dextrose running, the insulin infusion was at 2.4 units/hr but without dextrose is was at 1.7 units/hr. This is about 40 units/ day... which correlates with weight-based stress of 3. Will start Lantus weight- based stress of 3 today. Patient received 30 units yesterday and fasting was 165 mg/dL today. The patient will be slightly insulin resistant since the insulin infusion was discontinued. Monitor closely. * For Novolog, will tighten to weight-based stress of 3 for now to match Lantus dosing. Do not want a regimen that is too basal heavy currently. * Patient received 30 units of Lantus yesterday plus 8 units of Novolog. Insulin infusion ran until around 1800 with rates of 1.7 units/hr or 2.4 units/ hr. Estimate patient will require around 60 units/day. PLAN FOR INPATIENT GLYCEMIC CONTROL: * Lantus 20 units SQ BID * Novolog ACHS while diet ordered and Q6 when NPO * Correction Factor: 20 mg/dL/unit * carbohydrate ratio: 1 unit / 6 grams of carbohydrates consumed * goal range: 110-140 mg/dL PLAN FOR DISCHARGE: * Current A1c (10.4%) indicates sub-optimal glycemic control as an outpatient. * CDE spoke with patient yesterday and it seems that he is compliant with his Lantus. * Consider adding prandial coverage or increasing Lantus on discharge (although , patient reports reasonable fasting BSGs). * Recommend f/u with PCP for DM management after discharge to optimize A1c. * Recommend increase in SMBG after discharge until BSGs improve.
[2017-12-17] MEDS ORDERED: POTASSIUM CHLORIDE 10 MEQ TABCR PO STA (10:34)
--- NOTE | 2017-12-17 11:52 | Pharmacy Progress Note ---
Pharmacy Abx Dose Short Note Date of Service Dec 17, 2017. Assessment & Plan Assessment * 87 year old male receiving Vanc/Zosyn for treatment of pneumonia * Day #3 of Zosyn therapy. Vancomycin initiated today for S.aureus in sputum culture (sensitivities pending). * Patient has been febrile, WBC trending up Plan Vancomycin * Given OKSANA on CKD 3, will dose vancomycin cautiously and re-dose based on random levels * Vancomycin 2000mg IV x1 dose * Goal trough level for pna : 15 to 20 mcg/mL * Random level ordered for: tomorrow w/ am labs * Will re-dose vancomycin when random level falls near or within therapeutic range. Zosyn * Zosyn 3.375gm IV x1 dose over 30 min, then * Zosyn 3.375gm IV q8h, extended 4-hr infusions Pharmacy will continue to follow and will adjust dose/frequency as necessary. Thank you.
[2017-12-17] MEDS: MAGNESIUM CHLORIDE 64MG DELAYED REL TAB PO SCH (12:53)
--- NOTE | 2017-12-17 17:04 | Progress Note ---
Internal Med Progress Note Date of Service: Dec 17, 2017. Provider Documentation: SUBJECTIVE: The patient was seen and examined Cough for 1 week ,no fever,chills or Body aches with it Ongoing cough Has had fever last night OBJECTIVE: Vital Signs-as noted below Exam: General-Nn distress at rest Eyes-normal ENT-normal Neck-supple Lungs-decreased breath sound bilaterally Occasional crackles at the bases Heart-Regular,no murmur Abdomen-Benign,no masses,bowel sound present Extremities-NO edema Neuro-AAOx3 Lab data as noted below. ASSESSMENT & PLAN: Assessment and Plan ACUTE HYPOXEMIC RESPIRATORY FAILURE Presented with SOB /cough for 1 week and noted to have spo2 86 in RA , improved with supplemental 02 Secondary to pneumonia Steroid avoided as no significant wheeze noted and the patient is diabetic Cont wean off 02 as respiratory status improves Influenza A positive-On Flu isolation. Not been put on any Flu medications due to symptoms >1 week and no acute flu symptoms now Clinically a little better today LEFT LOWER LOBE PNEUMONIA Community acquired pneumonia Started on IV Zosyn ( for pseudomonal coverage in setting of Type 2 DM / hyperglycemia ) Blood and sputum culture ordered Abx can be adjusted as results available Clinically not any better today Sputum is growing Staph Aureus Vancomycin added HYPERGLYCEMIA WITH TYPE 2 DM On Lantus 22 U HS Started on IV insulin protocol Pharmacy consulted for glycemic management Hb A1c 9.8 on 09/2017 Hb A1c 10.4 now Will change to regular insulin regimen OKSANA ON CKD STAGE 3 due to above cont IV fluid resuscitation follow PRP-renal function is improving HYPONATREMIA : Due to hyperglycemia cont IVF with NSS follow PRP -improving HX OF A FLUTTER : Rate and rhythm controlled Cont amiodarone INR elevated > 4 , Coumadin on hold FULL CODE DISPOSITION ; PT/OT prior to discharge medicine follow up with Dr Christiansen Vital Signs: Date Time Temp Pulse Resp B/P (MAP) Pulse Ox O2 Delivery O2 Flow Rate FiO2 12/17/17 16:00 Nasal Cannula 2.0 12/17/17 15:10 37.0 67 20 132/70 (90) 97 12/17/17 14:28 82 16 96 Nasal Cannula 2.0 12/17/17 12:00 Nasal Cannula 2.0 12/17/17 11:19 36.7 71 20 144/71 (95) 95 12/17/17 10:00 36.3 12/17/17 08:00 Nasal Cannula 2.0 2/23/18 07:26 75 16 95 Nasal Cannula 2.0 12/17/17 07:23 38.4 79 20 115/65 (82) 93 12/17/17 04:00 Nasal Cannula 2.0 12/17/17 03:51 37.7 76 20 117/68 (84) 92 Nasal Cannula 2.0 12/17/17 01:40 57 16 96 Nasal Cannula 2.0 12/17/17 00:00 Nasal Cannula 2.0 12/16/17 23:54 37.4 71 18 147/76 (99) 94 Nasal Cannula 2.0 12/16/17 22:33 37.4 113 18 138/56 (83) 93 Nasal Cannula 2.0 12/16/17 20:00 Nasal Cannula 2.0 12/16/17 19:51 36.4 70 20 134/56 (82) 94 Nasal Cannula 2.0 12/16/17 19:41 72 16 94 Nasal Cannula 2.0 Lab Results: Results Past 24 Hours Test 12/16/17 20:44 12/16/17 23:45 12/17/17 06:10 12/17/17 07:38 Range/Units Bedside Glucose 205 180 150 70-99 mg/dl White Blood Count 18.14 4.8-10.8 K/uL Red Blood Count 4.07 4.7-6.1 M/uL Hemoglobin 12.1 14.0-18.0 g/dL Hematocrit 37.3 42-52 % Mean Corpuscular Volume 91.6 80-100 fL Mean Corpuscular Hemoglobin 29.7 25-34 pg Mean Corpuscular Hemoglobin Concent 32.4 32-36 g/dl RDW Standard Deviation 47.1 36.4-46.3 fL RDW Coefficient of Variation 14.0 11.5-14.5 % Platelet Count 214 130-400 K/uL Mean Platelet Volume 9.3 7.4-10.4 fL Prothrombin Time 36.7 9.0-12.0 SECONDS Prothromb Time International Ratio 3.6 0.9-1.1 Sodium Level 139 136-145 mmol/L Potassium Level 3.4 3.5-5.1 mmol/L Chloride Level 106 98-107 mmol/L Carbon Dioxide Level 23 21-32 mmol/L Anion Gap 10.0 3-11 mmol/L Blood Urea Nitrogen 17 7-18 mg/dl Creatinine 1.77 0.60-1.40 mg/dl Est Creatinine Clear Calc Drug Dose 32.9 ml/min Estimated GFR () 39.4 Estimated GFR (Non- 34.0 BUN/Creatinine Ratio 9.5 10-20 Random Glucose 165 70-99 mg/dl Calcium Level 7.6 8.5-10.1 mg/dl Magnesium Level 1.6 1.8-2.4 mg/dl Test 12/17/17 11:38 12/17/17 16:25 Range/Units Bedside Glucose 192 258 70-99 mg/dl
[2017-12-17] MEDS: HYDROCODONE/HOMATROPINE SYRUP 5MG/1.5MG 5ML UDP PO PRN (20:19)
[2017-12-18] VITALS (10 sets, daily range): BP systolic 118–174; BP diastolic 64–72; PULSE 68–84; TEMP 36.8–37.8; O2SAT 91–97
[2017-12-18] MEDS: PIPERACILL/TAZOBAC IV 3.375 GM in DEXTROSE 5% 100ML IV SCH ×2 (00:01→08:15)
[2017-12-18] MEDS: IPRATROPIUM BROMIDE NEB SOLN 0.02% 2.5 ML VIAL INH SCH ×4 (02:11→19:02)
[2017-12-18] MEDS: LEVALBUTEROL 1.25MG/0.5ML NEB INH SCH ×4 (02:12→19:02)
[2017-12-18] MEDS: SODIUM CHLORIDE 0.9% 1000ML 1,000 ML IV SCH ×4 (02:22→23:54)
[2017-12-18] MEDS: ACETAMINOPHEN 325 MG TAB PO PRN (05:52)
[2017-12-18 06:38] LABS: HEMATOCRIT 33.7 % (42-52); HEMOGLOBIN 11.6 g/dL (14.0-18.0); MEAN CELL VOLUME 91.1 fL (80-100); MEAN CORPUSCULAR HEMOGLOBIN 31.4 pg (25-34); MEAN CORPUSCULAR HGB CONC 34.4 g/dl (32-36); MEAN PLATELET VOLUME 9.1 fL (7.4-10.4); PLATELET COUNT 216 K/uL (130-400); RED CELL DISTRIBUTION WIDTH CV 13.8 % (11.5-14.5); WHITE BLOOD COUNT 24.43 K/uL (4.8-10.8)
[2017-12-18 06:48] LABS: INR 2.9 (0.9-1.1)
[2017-12-18 07:22] LABS: CALCIUM 7.3 mg/dl (8.5-10.1); CREATININE 1.46 mg/dl (0.60-1.40); POTASSIUM 3.3 mmol/L (3.5-5.1)
[2017-12-18] MEDS: PANTOprazole SOD 40 MG TAB PO SCH (08:15)
[2017-12-18] MEDS: AMIODARONE 200 MG TAB PO SCH (08:15)
[2017-12-18] MEDS: MAGNESIUM CHLORIDE 64MG DELAYED REL TAB PO SCH (08:15)
[2017-12-18] MEDS: CHOLECALCIFEROL 1000 INTER.UNIT TAB PO SCH (08:15)
[2017-12-18] MEDS: TAMSULOSIN HCL 0.4 MG CAP PO SCH (08:16)
[2017-12-18] MEDS: INSULIN ASPART 100 UNITS/ML 3 ML PEN SC SCH ×4 (08:34→21:37)
[2017-12-18] MEDS: INSULIN GLARGINE SOLOSTAR 100 UNITS/ML 3 ML PEN SC SCH ×2 (08:35→21:39)
[2017-12-18] MEDS ORDERED: AZITHROMYCIN 500 MG / D5W 250 ML IV SCH ×2 (10:00)
[2017-12-18] MEDS: DOXYCYCLINE HYCLATE 100 MG in DEXTROSE 5% 100ML IV SCH ×2 (10:00→21:36)
--- NOTE | 2017-12-18 10:50 | DIAGNOSTIC IMAGING REPORT ---
CHEST 2 VIEWS ROUTINE CLINICAL HISTORY: Pneumonia. COMPARISON STUDY: Chest radiograph December 15, 2017. FINDINGS: There is no pneumothorax. There may be a small right pleural effusion. Left basilar opacity has progressed since prior exam and there has been interval development of multifocal right lung airspace opacity with interstitial thickening. Cardiomediastinal silhouette is stable. IMPRESSION: Progression of bilateral airspace opacities which favors multifocal pneumonia. Asymmetric pulmonary edema could appear similar although is considered less likely. Electronically signed by: Taye Estrella M.D. 12/18/2017 10:49 AM Dictated Date/Time: 12/18/2017 10:47 AM
[2017-12-18] MEDS ORDERED: POTASSIUM CHLORIDE 10 MEQ TABCR PO STA (13:17)
--- NOTE | 2017-12-18 13:38 | Progress Note ---
Internal Med Progress Note Date of Service: Dec 18, 2017. Provider Documentation: SUBJECTIVE: The patient was seen and examined Cough for 1 week ,no fever,chills or Body aches with it Ongoing cough Has had fever last night Clinically better but labs and CXR is worse OBJECTIVE: Vital Signs-as noted below Exam: General-No distress at rest Eyes-normal ENT-normal Neck-supple Lungs-decreased breath sound bilaterally Occasional crackles at the bases more on the left than the right Heart-Regular,no murmur Abdomen-Benign,no masses,bowel sound present Extremities-NO edema Neuro-AAOx3 Lab data as noted below. ASSESSMENT & PLAN: Assessment and Plan BILATERAL MULTILOBAR PNEUMONIA Community acquired pneumonia Started on IV Zosyn ( for pseudomonal coverage in setting of Type 2 DM / hyperglycemia ) Blood CULTURE-NEGATIVEand sputum culture :Staph Aureus.MSSA Vancomycin was added yesterday 12/07/17 Changed to Ceftriaxone and Doxycycline from today WCC is increased but clinically better In no improvement by tomorrow -will consult Pulmonary ACUTE HYPOXEMIC RESPIRATORY FAILURE Presented with SOB /cough for 1 week and noted to have spo2 86 in RA , improved with supplemental 02 Secondary to pneumonia Steroid avoided as no significant wheeze noted and the patient is diabetic Cont wean off 02 as respiratory status improves Influenza A positive-On Flu isolation. Not been put on any Flu medications due to symptoms >1 week and no acute flu symptoms now Clinically a little better today Secondary to above HYPERGLYCEMIA WITH TYPE 2 DM On Lantus 22 U HS Started on IV insulin protocol Pharmacy consulted for glycemic management Hb A1c 9.8 on 09/2017 Hb A1c 10.4 now Will change to regular insulin regimen OKSANA ON CKD STAGE 3 due to above cont IV fluid resuscitation follow PRP-renal function is improving HYPONATREMIA : Due to hyperglycemia cont IVF with NSS follow PRP -improving HX OF A FLUTTER : Rate and rhythm controlled Cont amiodarone INR elevated > 4 , Coumadin on hold INR 2.9 on 12/18/17 FULL CODE DISPOSITION ; PT/OT prior to discharge medicine follow up with Dr Ward Vital Signs: Date Time Temp Pulse Resp B/P (MAP) Pulse Ox O2 Delivery O2 Flow Rate FiO2 12/18/17 12:00 Nasal Cannula 2.0 12/18/17 11:07 36.8 68 18 118/72 (87) 94 Nasal Cannula 2.0 12/18/17 08:00 Nasal Cannula 2.0 12/18/17 07:51 76 20 91 Nasal Cannula 2.0 12/18/17 07:04 37.7 73 18 129/64 (85) 94 Nasal Cannula 2.0 12/18/17 04:21 Nasal Cannula 2.0 12/18/17 04:07 37.8 84 20 144/67 (92) 92 Room Air 12/18/17 02:12 83 16 94 Nasal Cannula 2.0 12/18/17 00:21 Nasal Cannula 2.0 12/17/17 23:58 37.5 81 20 151/72 (98) 94 Nasal Cannula 2.0 12/17/17 19:34 Nasal Cannula 2.0 12/17/17 19:24 36.8 75 24 148/77 (100) 95 Nasal Cannula 2.0 12/17/17 19:01 75 16 94 Nasal Cannula 2.0 12/17/17 16:00 Nasal Cannula 2.0 12/17/17 15:10 37.0 67 20 132/70 (90) 97 12/17/17 14:28 82 16 96 Nasal Cannula 2.0 Lab Results: Results Past 24 Hours Test 12/17/17 16:25 12/17/17 20:18 12/18/17 06:08 12/18/17 07:56 Range/Units Bedside Glucose 258 231 79 70-99 mg/dl White Blood Count 24.43 4.8-10.8 K/uL Red Blood Count 3.70 4.7-6.1 M/uL Hemoglobin 11.6 14.0-18.0 g/dL Hematocrit 33.7 42-52 % Mean Corpuscular Volume 91.1 80-100 fL Mean Corpuscular Hemoglobin 31.4 25-34 pg Mean Corpuscular Hemoglobin Concent 34.4 32-36 g/dl RDW Standard Deviation 46.0 36.4-46.3 fL RDW Coefficient of Variation 13.8 11.5-14.5 % Platelet Count 216 130-400 K/uL Mean Platelet Volume 9.1 7.4-10.4 fL Prothrombin Time 30.3 9.0-12.0 SECONDS Prothromb Time International Ratio 2.9 0.9-1.1 Sodium Level 135 136-145 mmol/L Potassium Level 3.3 3.5-5.1 mmol/L Chloride Level 105 98-107 mmol/L Carbon Dioxide Level 22 21-32 mmol/L Anion Gap 8.0 3-11 mmol/L Blood Urea Nitrogen 13 7-18 mg/dl Creatinine 1.46 0.60-1.40 mg/dl Est Creatinine Clear Calc Drug Dose 39.9 ml/min Estimated GFR () 49.8 Estimated GFR (Non- 42.9 BUN/Creatinine Ratio 8.9 10-20 Random Glucose 71 70-99 mg/dl Calcium Level 7.3 8.5-10.1 mg/dl Magnesium Level 1.5 1.8-2.4 mg/dl Random Vancomycin Level 10.2 mcg/ml Test 12/18/17 11:25 Range/Units Bedside Glucose 178 70-99 mg/dl
--- NOTE | 2017-12-18 14:13 | Pharmacy Progress Note ---
Pharmacy Glycemic Short Note 2 Date of Service Dec 18, 2017. OUTPATIENT ANTIDIABETIC REGIMEN: * Lantus 22 units SQ daily * HbA1c: 10.4% (12/15/17) ASSESSMENT: * Yesterday, Mr Tevin Burgess' blood sugars were [phone] with a fasting today of 79 mg/dL. * For Lantus, a total daily dose of 40 units of Lantus led to a fasting of 79 mg /dL whereas 30 units led to a fasting of 150 mg/dL. Believe that the patient was insulin resistant yesterday secondary to insulin infusion. For Lantus, will establish a scale of weight-based stress of 2 and weight-based stress 3 for doses. * For Novolog, the patient's blood sugars increased throughout the day. Will continue with Novolog weight-based stress of 3 scale for today as the patient was insulin resistant yesterday. Continue to expect patient to require around 60 -70 units/day and this is tighter than the Novolog parameters recommended for that. * Mr Tevin Burgess if an 87 y/o M with a PMH of Aflutter on warfarin, HTN, and poorly controlled type 2 DM who presented with hyperglycemia and a LLL pneumonia. He was originally placed on an insulin infusion with dextrose starting when BSG less than 200 mg/dL. With dextrose running, the insulin infusion was at 2.4 units/hr but without dextrose is was at 1.7 units/hr. This is about 40 units/day... which correlates with weight-based stress of 3. Will start Lantus weight-based stress of 3 today. Patient received 30 units yesterday and fasting was 165 mg/dL today. The patient will be slightly insulin resistant since the insulin infusion was discontinued. Monitor closely. * For Novolog, will tighten to weight-based stress of 3 for now to match Lantus dosing. Do not want a regimen that is too basal heavy currently. * Patient received 30 units of Lantus yesterday plus 8 units of Novolog. Insulin infusion ran until around 1800 with rates of 1.7 units/hr or 2.4 units/ hr. Estimate patient will require around 60 units/day. PLAN FOR INPATIENT GLYCEMIC CONTROL: * Lantus 15-20 units SQ BID (Lantus 15 units if blood sugar less than 140 mg/dL) * Novolog ACHS while diet ordered and Q6 when NPO * Correction Factor: 20 mg/dL/unit * carbohydrate ratio: 1 unit / 6 grams of carbohydrates consumed * goal range: 110-140 mg/dL PLAN FOR DISCHARGE: * Current A1c (10.4%) indicates sub-optimal glycemic control as an outpatient. * CDE spoke with patient yesterday and it seems that he is compliant with his Lantus. * Consider adding prandial coverage or increasing Lantus on discharge (although , patient reports reasonable fasting BSGs). * Recommend f/u with PCP for DM management after discharge to optimize A1c. * Recommend increase in SMBG after discharge until BSGs improve.
[2017-12-18] MEDS: CEFTRIAXONE SOD INJ 2000 MG in DEXTROSE 5% 50ML IV SCH (16:40)
[2017-12-18] MEDS: HYDROCODONE/HOMATROPINE SYRUP 5MG/1.5MG 5ML UDP PO PRN (16:45)
[2017-12-19] VITALS (12 sets, daily range): BP systolic 123–177; BP diastolic 56–78; PULSE 72–95; TEMP 36.5–37.3; O2SAT 90–97
[2017-12-19] MEDS: IPRATROPIUM BROMIDE NEB SOLN 0.02% 2.5 ML VIAL INH SCH ×4 (01:58→19:15)
[2017-12-19] MEDS: LEVALBUTEROL 1.25MG/0.5ML NEB INH SCH ×4 (01:58→19:15)
[2017-12-19] MEDS: SODIUM CHLORIDE 0.9% 1000ML 1,000 ML IV SCH (06:29)
[2017-12-19 06:40] LABS: HEMATOCRIT 37.4 % (42-52); HEMOGLOBIN 12.6 g/dL (14.0-18.0); MEAN CELL VOLUME 90.1 fL (80-100); MEAN CORPUSCULAR HEMOGLOBIN 30.4 pg (25-34); MEAN CORPUSCULAR HGB CONC 33.7 g/dl (32-36); MEAN PLATELET VOLUME 8.9 fL (7.4-10.4); PLATELET COUNT 254 K/uL (130-400); RED CELL DISTRIBUTION WIDTH SD 46.1 fL (36.4-46.3); WHITE BLOOD COUNT 21.41 K/uL (4.8-10.8)
[2017-12-19 06:49] LABS: INR 2.4 (0.9-1.1)
[2017-12-19 07:21] LABS: CALCIUM 7.6 mg/dl (8.5-10.1); CREATININE 1.37 mg/dl (0.60-1.40); POTASSIUM 3.3 mmol/L (3.5-5.1)
[2017-12-19] MEDS: TAMSULOSIN HCL 0.4 MG CAP PO SCH (07:55)
[2017-12-19] MEDS: CHOLECALCIFEROL 1000 INTER.UNIT TAB PO SCH (07:56)
[2017-12-19] MEDS: MAGNESIUM CHLORIDE 64MG DELAYED REL TAB PO SCH (07:56)
[2017-12-19] MEDS: PANTOprazole SOD 40 MG TAB PO SCH (07:56)
[2017-12-19] MEDS: AMIODARONE 200 MG TAB PO SCH (07:56)
[2017-12-19] MEDS: INSULIN ASPART 100 UNITS/ML 3 ML PEN SC SCH ×5 (08:01→21:34)
[2017-12-19] MEDS: INSULIN GLARGINE SOLOSTAR 100 UNITS/ML 3 ML PEN SC SCH ×2 (08:01→21:36)
[2017-12-19] MEDS: DOXYCYCLINE HYCLATE 100 MG in DEXTROSE 5% 100ML IV SCH ×2 (08:01→21:30)
[2017-12-19] MEDS ORDERED: POTASSIUM CHLORIDE 10 MEQ TABCR PO ONE (09:30)
[2017-12-19] MEDS ORDERED: METHYLPREDNISOLONE IV 40 MG in SYRINGE 0 ML IV ONE (10:00)
[2017-12-19] MEDS: MAGNESIUM SULFATE 1GM / D5W 1 GM in PREMIXED IN D5W 100 ML IV SCH ×2 (10:16→11:31)
--- NOTE | 2017-12-19 12:18 | Progress Note ---
Internal Med Progress Note Date of Service: Dec 19, 2017. Provider Documentation: SUBJECTIVE: The patient was seen and examined Cough for 1 week ,no fever,chills or Body aches with it Remains very weak and lethargic Cough is better OBJECTIVE: Vital Signs-as noted below Exam: General-No distress at rest Eyes-normal ENT-normal Neck-supple Lungs-decreased breath sound bilaterally Occasional crackles at the bases more on the left than the right Heart-Regular,no murmur Abdomen-Benign,no masses,bowel sound present Extremities-trace edema bilaterally Neuro-AAOx3 Lab data as noted below. ASSESSMENT & PLAN: Assessment and Plan BILATERAL MULTILOBAR PNEUMONIA Community acquired pneumonia Started on IV Zosyn ( for pseudomonal coverage in setting of Type 2 DM / hyperglycemia ) Blood CULTURE-NEGATIVEand sputum culture :Staph Aureus.MSSA Vancomycin was added yesterday 12/07/17 Changed to Ceftriaxone and Doxycycline from today WCC is increased but clinically better In no improvement by tomorrow -will consult Pulmonary remains weak and lethargic Will add Solumedrol Will get Pulmonary tomorrow if not any better ACUTE HYPOXEMIC RESPIRATORY FAILURE Presented with SOB /cough for 1 week and noted to have spo2 86 in RA , improved with supplemental 02 Secondary to pneumonia Steroid avoided as no significant wheeze noted and the patient is diabetic Cont wean off 02 as respiratory status improves Influenza A positive-On Flu isolation. Not been put on any Flu medications due to symptoms >1 week and no acute flu symptoms now Clinically a little worse today Steroid added HYPERGLYCEMIA WITH TYPE 2 DM On Lantus 22 U HS Started on IV insulin protocol Pharmacy consulted for glycemic management Hb A1c 9.8 on 09/2017 Hb A1c 10.4 now Will change to regular insulin regimen Now in Hypoglycemia OKSANA ON CKD STAGE 3 due to above cont IV fluid resuscitation follow PRP-renal function is improving HYPONATREMIA : Due to hyperglycemia cont IVF with NSS follow PRP -improving HX OF A FLUTTER : Rate and rhythm controlled Cont amiodarone INR elevated > 4 , Coumadin on hold INR 2.9 on 12/18/17 FULL CODE DISPOSITION ; PT/OT prior to discharge medicine follow up with Dr Ward Vital Signs: Date Time Temp Pulse Resp B/P (MAP) Pulse Ox O2 Delivery O2 Flow Rate FiO2 12/19/17 12:12 36.9 95 18 163/78 (106) 93 Nasal Cannula 2.0 12/19/17 08:00 Nasal Cannula 2.0 12/19/17 07:37 36.6 86 16 177/76 (109) 90 Nasal Cannula 2.0 12/19/17 07:20 76 20 94 Nasal Cannula 2.0 12/19/17 04:10 37.3 82 18 166/73 (104) 92 Nasal Cannula 2.0 12/19/17 04:04 97 Nasal Cannula 2.0 12/19/17 01:58 78 20 97 Nasal Cannula 2.0 12/19/17 00:01 Nasal Cannula 2.0 12/18/17 23:54 37.2 77 18 174/71 (105) 95 Nasal Cannula 2.0 12/18/17 20:25 Nasal Cannula 2.0 12/18/17 19:15 36.8 77 18 120/70 (87) 97 Nasal Cannula 2.0 12/18/17 19:02 72 20 96 Nasal Cannula 2.0 12/18/17 16:00 Nasal Cannula 2.0 12/18/17 14:57 36.9 76 18 154/72 (99) 95 12/18/17 14:38 68 20 97 Nasal Cannula 2.0 Lab Results: Results Past 24 Hours Test 12/18/17 16:13 12/18/17 20:22 12/19/17 06:15 12/19/17 07:17 Range/Units Bedside Glucose 123 136 55 70-99 mg/dl White Blood Count 21.41 4.8-10.8 K/uL Red Blood Count 4.15 4.7-6.1 M/uL Hemoglobin 12.6 14.0-18.0 g/dL Hematocrit 37.4 42-52 % Mean Corpuscular Volume 90.1 80-100 fL Mean Corpuscular Hemoglobin 30.4 25-34 pg Mean Corpuscular Hemoglobin Concent 33.7 32-36 g/dl RDW Standard Deviation 46.1 36.4-46.3 fL RDW Coefficient of Variation 14.0 11.5-14.5 % Platelet Count 254 130-400 K/uL Mean Platelet Volume 8.9 7.4-10.4 fL Prothrombin Time 24.7 9.0-12.0 SECONDS Prothromb Time International Ratio 2.4 0.9-1.1 Sodium Level 136 136-145 mmol/L Potassium Level 3.3 3.5-5.1 mmol/L Chloride Level 106 98-107 mmol/L Carbon Dioxide Level 24 21-32 mmol/L Anion Gap 7.0 3-11 mmol/L Blood Urea Nitrogen 11 7-18 mg/dl Creatinine 1.37 0.60-1.40 mg/dl Est Creatinine Clear Calc Drug Dose 42.5 ml/min Estimated GFR () 53.7 Estimated GFR (Non- 46.4 BUN/Creatinine Ratio 8.2 10-20 Random Glucose 54 70-99 mg/dl Calcium Level 7.6 8.5-10.1 mg/dl Magnesium Level 1.4 1.8-2.4 mg/dl Test 12/19/17 07:18 12/19/17 07:44 12/19/17 11:23 Range/Units Bedside Glucose 53 76 192 70-99 mg/dl
--- NOTE | 2017-12-19 15:21 | Pharmacy Progress Note ---
Pharmacy Glycemic Short Note 2 Date of Service Dec 19, 2017. OUTPATIENT ANTIDIABETIC REGIMEN: * Lantus 22 units SQ daily * HbA1c: 10.4% (12/15/17) ASSESSMENT: * Yesterday, Mr Tevin Burgess' blood sugars were [phone] with a fasting today of 55 mg/dL. The patient received 51 units yesterday with 30 units of basal. * The patient had a lower blood sugar this morning which was unexpected with a basal of Lantus 30 units. This is most likely to aggressive dosing from a couple of days ago. Now, however, the patient is starting Solu-Medrol 40 mg IV q8 hours which will increase the patient's needs to around 80 units per day. Do not want to utilize Lantus to jyoti blood sugars therefore will use similar scale to last night with a higher dose of 20 units or weight-based stress of 3 available for blood sugars over 200 mg/dL. * Yesterday, weight-based stress of 3 appeared sufficient for the patient's post -prandial blood sugars. HOWEVER with the start of Solu-Medrol, the post- prandial blood sugars will be the most affected. Therefore, tighten slight tighter than weight-based stress of 3 plus add overnight accuchecks. * Mr Tevin Burgess if an 87 y/o M with a PMH of Aflutter on warfarin, HTN, and poorly controlled type 2 DM who presented with hyperglycemia and a LLL pneumonia. He was originally placed on an insulin infusion with dextrose starting when BSG less than 200 mg/dL. With dextrose running, the insulin infusion was at 2.4 units/hr but without dextrose is was at 1.7 units/hr. This is about 40 units/day... which correlates with weight-based stress of 3. Will start Lantus weight-based stress of 3 today. Patient received 30 units yesterday and fasting was 165 mg/dL today. The patient will be slightly insulin resistant since the insulin infusion was discontinued. Monitor closely. * For Novolog, will tighten to weight-based stress of 3 for now to match Lantus dosing. Do not want a regimen that is too basal heavy currently. * Patient received 30 units of Lantus yesterday plus 8 units of Novolog. Insulin infusion ran until around 1800 with rates of 1.7 units/hr or 2.4 units/ hr. Estimate patient will require around 60 units/day. PLAN FOR INPATIENT GLYCEMIC CONTROL: * Lantus 10-20 units SQ BID (Lantus 10 units if blood sugar less than 120 mg/dL , Lantus 15 units if blood sugar greater than 120 mg/dL, and Lantus 20 units if blood sugar greater than 2000 mg/dL) * Novolog ACHS while diet ordered and Q6 when NPO * Correction Factor: 15 mg/dL/unit * carbohydrate ratio: 1 unit / 4 grams of carbohydrates consumed * goal range: 110-140 mg/dL PLAN FOR DISCHARGE: * Current A1c (10.4%) indicates sub-optimal glycemic control as an outpatient. * CDE spoke with patient yesterday and it seems that he is compliant with his Lantus. * Consider adding prandial coverage or increasing Lantus on discharge (although , patient reports reasonable fasting BSGs). * Recommend f/u with PCP for DM management after discharge to optimize A1c. * Recommend increase in SMBG after discharge until BSGs improve.
[2017-12-19] MEDS: CEFTRIAXONE SOD INJ 2000 MG in DEXTROSE 5% 50ML IV SCH (16:40)
[2017-12-19] MEDS: METHYLPREDNISOLONE IV 40 MG in SYRINGE 0 ML IV SCH (17:35)
[2017-12-20] VITALS (13 sets, daily range): BP systolic 108–148; BP diastolic 54–69; PULSE 69–84; TEMP 36.4–36.5; O2SAT 91–96
[2017-12-20] MEDS: INSULIN ASPART 100 UNITS/ML 3 ML PEN SC SCH ×6 (00:40→20:15)
[2017-12-20] MEDS: LEVALBUTEROL 1.25MG/0.5ML NEB INH SCH ×4 (01:45→19:30)
[2017-12-20] MEDS: IPRATROPIUM BROMIDE NEB SOLN 0.02% 2.5 ML VIAL INH SCH ×4 (01:45→19:30)
[2017-12-20] MEDS: METHYLPREDNISOLONE IV 40 MG in SYRINGE 0 ML IV SCH ×3 (02:03→20:37)
[2017-12-20 07:23] LABS: HEMATOCRIT 34.4 % (42-52); HEMOGLOBIN 11.7 g/dL (14.0-18.0); MEAN CELL VOLUME 88.9 fL (80-100); MEAN CORPUSCULAR HEMOGLOBIN 30.2 pg (25-34); MEAN PLATELET VOLUME 8.7 fL (7.4-10.4); PLATELET COUNT 252 K/uL (130-400); RED CELL DISTRIBUTION WIDTH CV 14.3 % (11.5-14.5); RED CELL DISTRIBUTION WIDTH SD 46.4 fL (36.4-46.3); WHITE BLOOD COUNT 21.01 K/uL (4.8-10.8)
[2017-12-20 08:01] LABS: CREATININE 1.54 mg/dl (0.60-1.40); PHOSPHORUS 1.9 mg/dl (2.5-4.9); POTASSIUM 3.8 mmol/L (3.5-5.1)
[2017-12-20] MEDS: PANTOprazole SOD 40 MG TAB PO SCH (08:33)
[2017-12-20] MEDS: CHOLECALCIFEROL 1000 INTER.UNIT TAB PO SCH (08:33)
[2017-12-20] MEDS: MAGNESIUM CHLORIDE 64MG DELAYED REL TAB PO SCH (08:34)
[2017-12-20] MEDS: TAMSULOSIN HCL 0.4 MG CAP PO SCH (08:34)
[2017-12-20] MEDS: AMIODARONE 200 MG TAB PO SCH (08:34)
[2017-12-20] MEDS: INSULIN GLARGINE SOLOSTAR 100 UNITS/ML 3 ML PEN SC SCH (08:38)
[2017-12-20] MEDS: DOXYCYCLINE HYCLATE 100 MG in DEXTROSE 5% 100ML IV SCH ×2 (09:09→20:37)
--- NOTE | 2017-12-20 12:46 | Progress Note ---
Internal Med Progress Note Date of Service: Dec 20, 2017. Provider Documentation: SUBJECTIVE: The patient was seen and examined Cough for 1 week ,no fever,chills or Body aches with it Remains very weak and lethargic Cough is better Remains stable but not any better OBJECTIVE: Vital Signs-as noted below Exam: General-No distress at rest Eyes-normal ENT-normal Neck-supple Lungs-decreased breath sound bilaterally Moderate crackles bilaterally at the bases more on the left than the right Heart-Regular,no murmur Abdomen-Benign,no masses,bowel sound present Extremities-trace edema bilaterally Neuro-AAOx3 Lab data as noted below. ASSESSMENT & PLAN: Assessment and Plan BILATERAL MULTILOBAR PNEUMONIA Community acquired pneumonia Started on IV Zosyn ( for pseudomonal coverage in setting of Type 2 DM / hyperglycemia ) Blood CULTURE-NEGATIVEand sputum culture :Staph Aureus.MSSA Vancomycin was added yesterday 12/07/17 Changed to Ceftriaxone and Doxycycline from today WCC is increased but clinically better In no improvement by tomorrow -will consult Pulmonary remains weak and lethargic Solumedrol added Pulmonary consulted ACUTE HYPOXEMIC RESPIRATORY FAILURE Presented with SOB /cough for 1 week and noted to have spo2 86 in RA , improved with supplemental 02 Secondary to pneumonia Steroid avoided as no significant wheeze noted and the patient is diabetic Cont wean off 02 as respiratory status improves Influenza A positive-On Flu isolation. Not been put on any Flu medications due to symptoms >1 week and no acute flu symptoms now Clinically a little worse today Steroid added Await input from Docketing Specialist HYPERGLYCEMIA WITH TYPE 2 DM On Lantus 22 U HS Started on IV insulin protocol Pharmacy consulted for glycemic management Hb A1c 9.8 on 09/2017 Hb A1c 10.4 now Will change to regular insulin regimen Now in Hypoglycemia OKSANA ON CKD STAGE 3 due to above cont IV fluid resuscitation follow PRP-renal function is improving Renal function is slightly worse today HYPONATREMIA : Due to hyperglycemia cont IVF with NSS follow PRP -normalized HX OF A FLUTTER : Rate and rhythm controlled Cont amiodarone INR elevated > 4 , Coumadin on hold INR 2.4on Restart Coumadin FULL CODE DISPOSITION ; PT/OT prior to discharge medicine follow up with Dr Ward Vital Signs: Date Time Temp Pulse Resp B/P (MAP) Pulse Ox O2 Delivery O2 Flow Rate FiO2 12/20/17 11:23 36.5 84 16 108/54 (72) 2/26/18 08:00 Nasal Cannula 2.0 12/20/17 07:28 72 18 91 Nasal Cannula 2.0 12/20/17 07:12 36.4 73 20 127/63 (84) 95 12/20/17 04:14 36.5 79 16 129/60 (83) 95 Nasal Cannula 2.0 12/20/17 03:59 Nasal Cannula 2.0 12/20/17 02:23 75 20 94 Nasal Cannula 2.0 12/20/17 00:12 Nasal Cannula 2.0 12/19/17 23:36 36.5 76 18 131/56 (81) 96 Nasal Cannula 2.0 12/19/17 20:38 36.8 72 18 123/65 (84) 92 Nasal Cannula 2.0 12/19/17 20:27 93 Nasal Cannula 2.0 12/19/17 19:15 77 20 93 Nasal Cannula 2.0 12/19/17 16:02 Nasal Cannula 2.0 12/19/17 15:41 37.0 80 18 131/70 (90) 94 12/19/17 14:05 74 20 91 Nasal Cannula 2.0 Lab Results: Results Past 24 Hours Test 12/19/17 16:38 12/19/17 21:05 12/20/17 00:34 12/20/17 04:46 Range/Units Bedside Glucose 195 196 208 180 70-99 mg/dl Test 12/20/17 07:14 12/20/17 07:32 12/20/17 11:37 Range/Units White Blood Count 21.01 4.8-10.8 K/uL Red Blood Count 3.87 4.7-6.1 M/uL Hemoglobin 11.7 14.0-18.0 g/dL Hematocrit 34.4 42-52 % Mean Corpuscular Volume 88.9 80-100 fL Mean Corpuscular Hemoglobin 30.2 25-34 pg Mean Corpuscular Hemoglobin Concent 34.0 32-36 g/dl RDW Standard Deviation 46.4 36.4-46.3 fL RDW Coefficient of Variation 14.3 11.5-14.5 % Platelet Count 252 130-400 K/uL Mean Platelet Volume 8.7 7.4-10.4 fL Sodium Level 141 136-145 mmol/L Potassium Level 3.8 3.5-5.1 mmol/L Chloride Level 108 98-107 mmol/L Carbon Dioxide Level 23 21-32 mmol/L Anion Gap 10.0 3-11 mmol/L Blood Urea Nitrogen 17 7-18 mg/dl Creatinine 1.54 0.60-1.40 mg/dl Est Creatinine Clear Calc Drug Dose 37.8 ml/min Estimated GFR () 46.7 Estimated GFR (Non- 40.3 BUN/Creatinine Ratio 10.9 10-20 Random Glucose 189 70-99 mg/dl Calcium Level 8.0 8.5-10.1 mg/dl Phosphorus Level 1.9 2.5-4.9 mg/dl Magnesium Level 2.2 1.8-2.4 mg/dl Bedside Glucose 169 234 70-99 mg/dl
--- NOTE | 2017-12-20 14:45 | Pharmacy Progress Note ---
Pharmacy Glycemic Short Note 2 Date of Service Dec 20, 2017. OUTPATIENT ANTIDIABETIC REGIMEN: * Lantus 22 units SQ daily * HbA1c: 10.4% (12/15/17) ASSESSMENT: * Yesterday, Mr Tevin Burgess' blood sugars were [phone] with a fasting today of 169 mg/dL. The patient received 57 units yesterday with 25 units of basal and 8 units overnight. * The steroids were tapered later in the day to Solu-Medrol 40 mg IV q12 hours ( however, patient received 3 doses today). Continue Lantus scale today as do not want to use Lantus to jyoti high blood sugars. Will use tightened scale of correction factor of 10 and carbohydrate ratio of 3 for now (this is tighter than weight-based stress of 3)... attempting to achieve 60% bolus and 40% basal. Added overnight Accuchecks to ensure 24 hours coverage. * Even though steroids are tapered, the patient is still receiving about 80 mg of Solu-Medrol per day. Once below this value will expect patient's insulin requirements to decrease. Continue this. * Mr Tevin Burgess if an 87 y/o M with a PMH of Aflutter on warfarin, HTN, and poorly controlled type 2 DM who presented with hyperglycemia and a LLL pneumonia. He was originally placed on an insulin infusion with dextrose starting when BSG less than 200 mg/dL. He was transitioned off the insulin infusion on 12/17/17 and started on basal bolus typically requiring around 60 units of insulin per day. * On 12/19/17, the patient started Solu-Medrol 40 mg IV q8 hours which increased the patient's needs slightly. Do not want to utilize Lantus to jyoti blood sugars therefore provided similar scale with a higher dose of 20 units or weight -based stress of 3 available for blood sugars over 200 mg/dL. * Used tighten scale of weight-based stress of 3 plus add overnight accuchecks. PLAN FOR INPATIENT GLYCEMIC CONTROL: * Lantus 10-20 units SQ BID (Lantus 10 units if blood sugar less than 120 mg/dL , Lantus 15 units if blood sugar greater than 120 mg/dL, and Lantus 20 units if blood sugar greater than 2000 mg/dL) * Novolog ACHS while diet ordered and Q6 when NPO * Correction Factor: 10 mg/dL/unit * carbohydrate ratio: 1 unit / 3 grams of carbohydrates consumed * goal range: 110-140 mg/dL PLAN FOR DISCHARGE: * Current A1c (10.4%) indicates sub-optimal glycemic control as an outpatient. * CDE spoke with patient yesterday and it seems that he is compliant with his Lantus. * Consider adding prandial coverage or increasing Lantus on discharge (although , patient reports reasonable fasting BSGs). * Recommend f/u with PCP for DM management after discharge to optimize A1c. * Recommend increase in SMBG after discharge until BSGs improve.
--- NOTE | 2017-12-20 15:31 | PULMONARY CONSULTATION ---
DATE OF CONSULTATION: 12/20/2017 TIME: 2:00 p.m. HISTORY OF PRESENT ILLNESS: The patient was seen in room #275 bed #2. He was accompanied by his at the time of this evaluation. He is an 87-year-old male who was admitted to the hospital on December 15. He had been sick for about 2 weeks with a cough prior to admission. He had had fatigue. His cough was productive of yellow and green sputum. He had gone to his primary doctor's office and was found to be hypoxic. He was then referred to the Emergency Room. His oxygen saturation in the ER initially was 86% on room air. The patient has had leukocytosis which has persisted throughout his hospital stay. He has been fatigued. He has been weak. He was tested positive for influenza A. His sputum culture showed evidence of methicillin sensitive staph aureus. He is 1feeling a little better. He states his cough is less now than it was when he came in. He is starting to get his appetite back. Today was the first day he was able to eat lunch. He is still coughing significantly. The mucus is getting less. His fever pattern has been improving. On December 17, his maximum temperature was 38.4. On the , the maximum temperature was 37.8. On the , the maximum temperature was 37.3. Initially, he was on Zosyn for 2 days. He was on vancomycin for one dose and Zithromax for one dose. At present, he is on ceftriaxone and doxycycline, both of which are given IV. He is also on methylprednisolone. PAST PULMONARY HISTORY: None. PAST SURGICAL HISTORY: 1. Hernia repair. 2. Right and left cataract surgeries. PAST MEDICAL HISTORY: 1. Hypertension. 2. Diabetes. 3. Chronic kidney disease. 4. Atrial flutter. SOCIAL HISTORY: Tobacco - none for 50 years. Previously, he smoked between 1 and 1-1/2 packs per day for 15 years. Alcohol use is very little. FAMILY HISTORY: Noncontributory in light of his age of 87 years. ALLERGIES: No known allergies. 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 He states he had exposure to copper endless. REVIEW OF SYSTEMS: The patient has had a little loose stool today. That was the first time. His shortness of breath is less as noted. Overall, he is slowly feeling a bit better. He did walk in the hallway today for the first time. He is not complaining of pain. The remainder of the review of systems is negative. Ten systems reviewed. PHYSICAL EXAMINATION: GENERAL: The patient is an 87-year-old male who was cooperative, alert and oriented. He was in no distress. VITAL SIGNS: The most recent temperature is 36.5. That will be the high temperature for today. HEENT: Eye exam showed implants. Nares were clear. Mouth exam showed no erythema or exudate. NECK: Palpation of the neck reveals no lymph nodes. HEART: The heart rate is 84 per minute. The rhythm was regular. Blood pressure is 108/54. LUNGS: Auscultation of the lung mohr reveals diffuse rales and rhonchi bilaterally. Some of these would clear with coughing. They were better heard posteriorly than anteriorly. Oxygen saturation was 91% on 2 liters. ABDOMEN: Soft. Bowel sounds were present. There was no tenderness to palpation, masses or organomegaly. EXTREMITIES: Reveals +2 edema on the dorsum of the right foot. There is +1 tibial edema. There is trace edema on the left side. He states that it is difficult for him to have edema on the right but not on the left. LABORATORY AND IMAGING DATA: Chest x-ray on admission on 12/15/2017 showed a small left base opacity. Repeat x-ray on the showed progression of the infiltrates bilaterally with now evidence of an infiltrate not only in the left lower lobe, but in the right mid to upper lung field. These were portable x-rays, the first one, the second one was 2 views. White count on admission was 16.16. His white count has gone as high as 24.43 on 12/18/2017. Today it is 21.01. The initial CBC showed neutrophils at 82.3%. The others did not have differentials. INR on admission was 4.5 and yesterday was 2.4. Urine revealed +2 ketones, +3 blood, +3 glucose, +1 protein, but negative for bacteria. Blood gas on December 15 showed a pH of 7.41 with a pCO2 of 36 and a pO2 of 63 on 2 liters. Electrolytes today show sodium 141, potassium 3.8, chloride 108, and bicarbonate 23. BUN was 17 with a creatinine of 1.54. These have increased from prior values of 11 and 1.37. Troponin done December 15 was negative. AST on admission was 19 and ALT on admission was 28. Sputum culture on admission showed positive for Staph aureus which was methicillin sensitive. The flu test was positive for flu A. IMPRESSION: 1. Bilateral pneumonia -- secondary to methicillin-sensitive staphylococcus aureus. 2. Acute influenza A. 3. Leukocytosis. COMMENTS: The patient is still very congested. He has a lot of rales and rhonchi, although he feels better and his believes he is better. As noted, he is currently on ceftriaxone and doxycycline. In light of the improvement, I would continue with these. I would decrease the methylprednisolone a bit now practically with the diabetes. We will cut it back to 40 q. 12 hours. I am going to order a flutter valve as well as a vibration vest for him. I believe getting rid of secretions is the coleman to him clearing out and continuing to improve. Thank you very much for asking me to assist in his care.
[2017-12-20] MEDS: CEFTRIAXONE SOD INJ 2000 MG in DEXTROSE 5% 50ML IV SCH (15:32)
[2017-12-20] MEDS ORDERED: WARFARIN SOD 5 MG TAB PO SCH (16:00)
[2017-12-21] VITALS (9 sets, daily range): BP systolic 110–141; BP diastolic 56–65; PULSE 70–88; TEMP 36.3–37; O2SAT 91–95; BMI 25.9
[2017-12-21] MEDS: INSULIN ASPART 100 UNITS/ML 3 ML PEN SC SCH ×6 (00:10→20:25)
[2017-12-21] MEDS: LEVALBUTEROL 1.25MG/0.5ML NEB INH SCH ×4 (01:48→19:38)
[2017-12-21] MEDS: IPRATROPIUM BROMIDE NEB SOLN 0.02% 2.5 ML VIAL INH SCH ×4 (01:48→19:38)
[2017-12-21 06:59] LABS: MEAN CELL VOLUME 88.4 fL (80-100); MEAN CORPUSCULAR HEMOGLOBIN 30.4 pg (25-34); MEAN CORPUSCULAR HGB CONC 34.4 g/dl (32-36); MEAN PLATELET VOLUME 8.8 fL (7.4-10.4); PLATELET COUNT 292 K/uL (130-400); RED CELL DISTRIBUTION WIDTH CV 14.4 % (11.5-14.5); RED CELL DISTRIBUTION WIDTH SD 46.7 fL (36.4-46.3); WHITE BLOOD COUNT 20.77 K/uL (4.8-10.8)
[2017-12-21 07:08] LABS: INR 3.1 (0.9-1.1)
[2017-12-21 07:32] LABS: CALCIUM 7.6 mg/dl (8.5-10.1); CREATININE 1.72 mg/dl (0.60-1.40); POTASSIUM 3.6 mmol/L (3.5-5.1)
[2017-12-21] MEDS: DOXYCYCLINE HYCLATE 100 MG in DEXTROSE 5% 100ML IV SCH ×2 (07:56→20:17)
[2017-12-21] MEDS: METHYLPREDNISOLONE IV 40 MG in SYRINGE 0 ML IV SCH ×2 (07:56→20:17)
[2017-12-21] MEDS: AMIODARONE 200 MG TAB PO SCH (07:56)
[2017-12-21] MEDS: CHOLECALCIFEROL 1000 INTER.UNIT TAB PO SCH (07:56)
[2017-12-21] MEDS: TAMSULOSIN HCL 0.4 MG CAP PO SCH (07:57)
[2017-12-21] MEDS: PANTOprazole SOD 40 MG TAB PO SCH (07:57)
[2017-12-21] MEDS: MAGNESIUM CHLORIDE 64MG DELAYED REL TAB PO SCH (07:57)
[2017-12-21] MEDS ORDERED: INSULIN GLARGINE SOLOSTAR 100 UNITS/ML 3 ML PEN SC SCH (09:00)
--- NOTE | 2017-12-21 10:28 | Pharmacy Progress Note ---
Pharmacy Glycemic Short Note 2 Date of Service Dec 21, 2017. OUTPATIENT ANTIDIABETIC REGIMEN: * Lantus 22 units SQ daily * HbA1c: 10.4% (12/15/17) ASSESSMENT: * See progress note from 12/20/17 for background info, in short: * Continuing to titrate SQ basal/bolus insulin regimen in the setting of uncontrolled diabetes and steroid induced hyperglycemia * Currently ordered solu-medrol 40 mg IV every 12 hours * Patient received 77 units of insulin on 12/20 * 15 units of basal insulin * 62 units of prandial insulin * BSGs over the past 24 hours: 169, 234, 100, 40, 107, 173 * Changes needed to regimen: * Fasting BSG of 209 mg/dL is elevated. HS basal dose was placed on hold, therefore patient is basal deficient. Anticipate needing about 25-30 units of basal insulin. Will give full dose this am in attempt to resolve deficiency. Will schedule a small dose of Lantus at HS based on BSG. * Prandial BSGs are improving. Patient did have low BSG yesterday at HS. I suspect this was from stacking of novolog doses. I anticipate further improvement today since total dose of IV steroid decreased (120 units on 12/20, ordered 80 units for today) * Will adjust insulin as needed with each step down in steroids. PLAN FOR INPATIENT GLYCEMIC CONTROL: * Basal insulin * Lantus 25 units SQ qAM * Lantus 0-10 units SQ tonight (0 for BSG < 140, 5 units for 140-180, 10 units if > 180) * Bolus insulin * Novolog ACHS while diet ordered and Q6 when NPO * Correction Factor: 12 mg/dL/unit * Carbohydrate ratio: 1 unit / 4 grams of carbohydrates consumed * Goal range: 110-140 mg/dL PLAN FOR DISCHARGE: * Current A1c (10.4%) indicates sub-optimal glycemic control as an outpatient. * CDE spoke with patient yesterday and it seems that he is compliant with his Lantus. * Consider adding prandial coverage or increasing Lantus on discharge (although , patient reports reasonable fasting BSGs). * Recommend f/u with PCP for DM management after discharge to optimize A1c. * Recommend increase in SMBG after discharge until BSGs improve.
--- NOTE | 2017-12-21 13:35 | PULMONARY PROGRESS NOTE ---
DATE: 12/21/2017 TIME: 1:10 p.m. SUBJECTIVE: The patient states he feels about 80% better than when he came in. Last evening he coughed up quite a bit of phlegm, he states. Today, he has not brought anything up. He still feels somewhat short of breath with exertion. The patient relates that he did walk with physical therapy in the hallway today. PT reports that he tolerated this well. They described his gait endurance as fair. OBJECTIVE: GENERAL: The patient appears comfortable. Temperature is 36.6. ENT: Unremarkable. VITAL SIGNS: Heart rate is 72 per minute. The rhythm is regular. Blood pressure 127/65. LUNGS: Lung mohr again reveal mild to moderate rhonchi bilaterally. Saturation is 93% on 4 liters as of 11:53 a.m. I just checked it myself and it was 91%. Still this is a little lower than expected. EXTREMITIES: Again reveal edema of the right foot which the patient states is chronic. LABORATORY DATA: CBC today showed white count was 20.77, this is very slowly improving, it had been 24.43 as of 12/18/2017. It is not clear why it is still so elevated. INR today is 3.1. Electrolytes show sodium 139, potassium 3.6, chloride 108, bicarbonate 23. BUN was 29 with a creatinine of 1.72. The creatinine has been rising. It was 1.37 as of 12/19/2017. IMPRESSIONS: 1. Bilateral pneumonia secondary to methicillin-sensitive Staph aureus. 2. Acute influenza A. 3. Leukocytosis. COMMENTS: The patient states he continues to improve, albeit slowly. I would change to oral prednisone after today. I believe the doxycycline could be changed to oral. Would continue with his neb treatments. RECOMMENDATIONS: 1. We will recheck an x-ray tomorrow in the PA and lateral view. 2. Change to prednisone. 3. Consider change to oral doxycycline. Defer to hospitalist team.
[2017-12-21] MEDS: CEFTRIAXONE SOD INJ 2000 MG in DEXTROSE 5% 50ML IV SCH (15:53)
[2017-12-21] MEDS: WARFARIN SOD 3 MG TAB PO SCH (15:54)
--- NOTE | 2017-12-21 19:22 | Progress Note ---
Medicine Progress Note Date & Time of Visit: Dec 21, 2017 at 11:08. Subjective Pt was seen and examined Lying in bed with no distress Pt said that his breathing seems to improve Continue to cough denies any chest pain, palpitation and fever Objective Last 8 Hrs Date Time Temp Pulse Resp B/P (MAP) Pulse Ox O2 Delivery O2 Flow Rate FiO2 12/21/17 16:00 Nasal Cannula 3.0 12/21/17 15:58 37.0 75 18 110/61 (77) 92 Nasal Cannula 4.0 12/21/17 14:24 78 18 94 Nasal Cannula 2.0 12/21/17 12:15 Nasal Cannula 3.0 12/21/17 11:53 36.6 72 16 127/65 (85) 93 Nasal Cannula 4.0 Physical Exam: General- No acute distress Head- atraumatic Eyes- PERRL, EOMI ENT- oropharynx clear Neck- supple, no JVD Lungs- coarse BS, +wheezing Heart- regular rhythm Abdomen- normal bowel sounds Extremities- +edema Neuro- alert, oriented x 3; PERRL, EOMI Skin- warm & dry Laboratory Results: Last 24 Hours Test 12/20/17 19:38 12/20/17 20:05 12/21/17 00:07 12/21/17 03:55 Bedside Glucose 40 mg/dl 107 mg/dl 173 mg/dl 214 mg/dl Test 12/21/17 06:40 12/21/17 07:33 12/21/17 11:29 12/21/17 16:52 White Blood Count 20.77 K/uL Red Blood Count 3.62 M/uL Hemoglobin 11.0 g/dL Hematocrit 32.0 % Mean Corpuscular Volume 88.4 fL Mean Corpuscular Hemoglobin 30.4 pg Mean Corpuscular Hemoglobin Concent 34.4 g/dl RDW Standard Deviation 46.7 fL RDW Coefficient of Variation 14.4 % Platelet Count 292 K/uL Mean Platelet Volume 8.8 fL Prothrombin Time 32.0 SECONDS Prothromb Time International Ratio 3.1 Sodium Level 139 mmol/L Potassium Level 3.6 mmol/L Chloride Level 108 mmol/L Carbon Dioxide Level 23 mmol/L Anion Gap 8.0 mmol/L Blood Urea Nitrogen 29 mg/dl Creatinine 1.72 mg/dl Est Creatinine Clear Calc Drug Dose 33.8 ml/min Estimated GFR () 40.8 Estimated GFR (Non- 35.2 BUN/Creatinine Ratio 16.9 Random Glucose 221 mg/dl Calcium Level 7.6 mg/dl Magnesium Level 2.1 mg/dl Bedside Glucose 209 mg/dl 219 mg/dl 164 mg/dl Assessment & Plan PNEUMONIA Community acquired pneumonia CXR showed subtle left basal airspace opacity suspicious for a pneumonia Repeat CXR showed Progression of bilateral airspace opacities which favors multifocal pneumonia. sputum cx positive for staph aureus (MSSA) Was starting on Zosyn then changed On Ceftriaxone and Doxycycline Pulmonary on board Continue PT vibration and Neb treatment Mucinex adding Repeat CXR in am ACUTE HYPOXEMIC RESPIRATORY FAILURE Secondary to pneumonia Influenza positive Since symptoms has been going on for more than 1 week, No Tamiflu starting clinically improved HYPERGLYCEMIA WITH TYPE 2 DM Pharmacy on board for glycemic management Recent Hb A1c 10.4 Continue insulin Will monitor BS OKSANA ON CKD STAGE 3 Possible related to acute illness/dehydration Received IVF Creatine worsening today ELEVATED WBC Mostly related to steroid continue monitor HYPONATREMIA Due to hyperglycemia Stable HX OF A FLUTTER : Rate and rhythm controlled Cont amiodarone Resume coumadin 3 mg INR 3.1 today FULL CODE DISPOSITION ; PT/OT prior to discharge medicine follow up with Dr Ward Current Inpatient Medications: Current Inpatient Medications Medications (Trade) Dose Ordered Sig/Krystal Route Start Time Stop Time Status Last Admin Dose Admin Miscellaneous Information (Consult Glycemic Management Pharmacy) 1 ea UD PRN N/A 12/15/17 18:01 01/14/18 18:00 Acetaminophen (Tylenol Tab) 650 mg Q4H PRN PO 12/15/17 17:15 01/14/18 17:14 12/18/17 05:52 650 MG Al Hydrox/Mg Hydrox/Simethicone (Maalox Max Susp) 15 ml Q4H PRN PO 12/15/17 17:15 01/14/18 17:14 Magnesium Hydroxide (Milk Of Magnesia Susp) 30 ml Q12H PRN PO 12/15/17 17:15 01/14/18 17:14 Ondansetron HCl (Zofran Inj) 4 mg Q6H PRN IV 12/15/17 17:15 01/14/18 17:14 Polyethylene (Miralax Powder Packet) 17 gm DAILY PRN PO 12/15/17 17:15 01/14/18 17:14 Amiodarone HCl (Cordarone Tab) 200 mg DAILY PO 12/16/17 09:00 01/15/18 08:59 12/21/17 07:56 200 MG Tamsulosin HCl (Flomax Cap) 0.4 mg DAILY PO 12/16/17 09:00 01/15/18 08:59 12/21/17 07:57 0.4 MG Cholecalciferol (Vitamin D Tab) 2,000 inter.unit DAILY PO 12/16/17 09:00 01/15/18 08:59 12/21/17 07:56 2,000 INTER.UNIT Pantoprazole Sodium (Protonix Tab) 40 mg QAM PO 12/16/17 09:00 01/15/18 08:59 12/21/17 07:57 40 MG Ipratropium [place] (Atrovent 0.02% 0.5MG/2.5ML Neb) 0.5 mg Q6R INH 12/16/17 03:00 01/15/18 02:59 12/21/17 14:20 0.5 MG Levalbuterol (Xopenex 1.25MG/ 0.5ML Neb) 1.25 mg Q6R INH 12/16/17 03:00 01/15/18 02:59 12/21/17 14:20 1.25 MG Ipratropium [place] (Atrovent 0.02% 0.5MG/2.5ML Neb) 0.5 mg Q2H PRN INH 12/15/17 21:15 01/14/18 21:14 Levalbuterol (Xopenex 1.25MG/ 0.5ML Neb) 1.25 mg Q2H PRN INH 12/15/17 21:15 01/14/18 21:14 Insulin Aspart (novoLOG ASPART) SLIDING SCALE ACHS SC 12/16/17 21:00 01/15/18 20:59 12/21/17 18:09 14 UNITS Hydrocodone Bit/ Homatropine Methylb (Hycodan Syrup) 5 ml Q6H PRN PO 12/17/17 08:00 12/31/17 07:59 12/18/17 16:45 5 ML Magnesium Chloride (Slow-Mag Tab) 128 mg DAILY PO 12/17/17 10:45 01/16/18 10:44 12/21/17 07:57 128 MG Insulin Glargine (Lantus Solostar Pen) SEE PROTOCOL TEXT BID SC 12/18/17 09:00 01/17/18 08:59 Future Hold 12/20/17 08:38 15 UNITS Ceftriaxone Sodium 2 gm/ Dextrose 50 ml @ 100 mls/hr Q24H IV 12/18/17 16:00 12/22/17 15:59 12/21/17 15:53 100 MLS/HR Doxycycline Hyclate 100 mg/ Dextrose 110 ml @ 55 mls/hr Q12 IV 12/18/17 10:00 12/25/17 08:59 12/21/17 07:56 55 MLS/HR Methylprednisolone Sodium Succinate 40 mg/Syringe 0.64 ml @ 1.5 mls/min Q12 IV 12/20/17 21:00 12/21/17 23:59 12/21/17 07:56 1.5 MLS/MIN Insulin Aspart (novoLOG ASPART) SLIDING SCALE 0000 SC 12/22/17 00:00 12/22/17 00:01 Warfarin Sodium (Coumadin Tab) 3 mg DAILY@1600 PO 12/21/17 16:00 01/19/18 15:59 12/21/17 15:54 3 MG Prednisone (PredniSONE TAB) 40 mg DAILY PO 12/22/17 09:00 01/21/18 08:59
[2017-12-21] MEDS ORDERED: GUAIFENESIN 600 MG TABCR PO ONE (19:40)
[2017-12-21] MEDS: GUAIFENESIN 600 MG TABCR PO SCH (20:17)
[2017-12-22] VITALS (10 sets, daily range): BP systolic 113–138; BP diastolic 56–61; PULSE 68–87; TEMP 36.4–36.8; O2SAT 92–96
[2017-12-22] MEDS ORDERED: INSULIN ASPART 100 UNITS/ML 3 ML PEN SC SCH
[2017-12-22] MEDS: LEVALBUTEROL 1.25MG/0.5ML NEB INH SCH ×5 (01:29→19:30)
[2017-12-22] MEDS: IPRATROPIUM BROMIDE NEB SOLN 0.02% 2.5 ML VIAL INH SCH ×5 (01:29→19:30)
[2017-12-22 07:14] LABS: HEMATOCRIT 33.6 % (42-52); HEMOGLOBIN 11.2 g/dL (14.0-18.0); MEAN CELL VOLUME 90.1 fL (80-100); MEAN CORPUSCULAR HGB CONC 33.3 g/dl (32-36); PLATELET COUNT 318 K/uL (130-400); RED CELL DISTRIBUTION WIDTH CV 14.4 % (11.5-14.5); RED CELL DISTRIBUTION WIDTH SD 47.6 fL (36.4-46.3); WHITE BLOOD COUNT 18.04 K/uL (4.8-10.8)
[2017-12-22 07:54] LABS: CALCIUM 7.7 mg/dl (8.5-10.1); CREATININE 1.78 mg/dl (0.60-1.40); POTASSIUM 4.2 mmol/L (3.5-5.1)
--- NOTE | 2017-12-22 08:23 | DIAGNOSTIC IMAGING REPORT ---
CHEST 2 VIEWS ROUTINE HISTORY: 87 years-old Male f/u pneumonia follow-up study in a patient with pneumonia COMPARISON: Chest radiographs 12/18/2017, 12/15/2017 and 05/22/2013. TECHNIQUE: PA and lateral views of the chest FINDINGS: Cardiac silhouette is upper limits of normal in size, unchanged. The patient is slightly rotated to the right. The lungs are hyperinflated with diaphragmatic flattening. Progressively worsened mixed interstitial and alveolar opacities are noted within the right upper lobe with generally unchanged left greater than right bibasilar alveolar opacities. There is blunting of the bilateral costophrenic angles suggesting trace effusions. No pneumothorax. Bones of the chest appear grossly intact. Degenerative changes are noted within the shoulders and spine. IMPRESSION: 1. Progressively worsened mixed interstitial and alveolar opacities of the right upper lobe with unchanged left greater than right bibasilar opacities, again favoring multifocal pneumonia. Follow-up recommended. 2. Trace bilateral pleural effusions. The above report was generated using voice recognition software. It may contain grammatical, syntax or spelling errors. Electronically signed by: Freddie Crane M.D. 12/22/2017 8:22 AM Dictated Date/Time: 12/22/2017 8:19 AM
[2017-12-22] MEDS: TAMSULOSIN HCL 0.4 MG CAP PO SCH (08:33)
[2017-12-22] MEDS: GUAIFENESIN 600 MG TABCR PO SCH ×2 (08:33→21:27)
[2017-12-22] MEDS: PANTOprazole SOD 40 MG TAB PO SCH (08:33)
[2017-12-22] MEDS: AMIODARONE 200 MG TAB PO SCH (08:33)
[2017-12-22] MEDS: MAGNESIUM CHLORIDE 64MG DELAYED REL TAB PO SCH (08:33)
[2017-12-22] MEDS: DOXYCYCLINE HYCLATE 100 MG in DEXTROSE 5% 100ML IV SCH (08:33)
[2017-12-22] MEDS: CHOLECALCIFEROL 1000 INTER.UNIT TAB PO SCH (08:33)
[2017-12-22] MEDS: INSULIN ASPART 100 UNITS/ML 3 ML PEN SC SCH ×4 (08:46→21:00)
[2017-12-22] MEDS ORDERED: INSULIN GLARGINE SOLOSTAR 100 UNITS/ML 3 ML PEN SC SCH (09:00)
[2017-12-22] MEDS: INSULIN HUMAN NPH SC SCH (09:16)
--- NOTE | 2017-12-22 09:41 | Pharmacy Progress Note ---
Pharmacy Glycemic Short Note 2 Date of Service Dec 22, 2017. OUTPATIENT ANTIDIABETIC REGIMEN: * Lantus 22 units SQ daily * HbA1c: 10.4% (12/15/17) ASSESSMENT: * See progress note from 12/20/17 for background info, in short: * Continuing to titrate SQ basal/bolus insulin regimen in the setting of uncontrolled diabetes and steroid induced hyperglycemia * Steroids transitioned from Solu-medrol IV to Prednisone PO * Patient received 76 units of insulin on 12/21 * 25 units of basal insulin * 51 units of prandial insulin * BSGs over the past 24 hours: 209, 219, 164, 142, 81 * Changes needed to regimen: * Add weight based NPH for coverage of PO steroid. * Fasting BSG of 269 mg/dL is elevated. Will slightly increase Lantus dose to 30 units today. * Prandial BSGs are at goal and trending downward throughout the day, therefore I will loosen CF/CR. Expect a significant decrease in bolus insulin with addition of NPH. * Will adjust insulin as needed with each step down in steroids. PLAN FOR INPATIENT GLYCEMIC CONTROL: * Basal insulin - increase * Lantus 30 units SQ qAM * NPH - while on prednisone * 30 units SQ qQM (0.35 unit/kg) * Bolus insulin - loosen * Novolog ACHS while diet ordered and Q6 when NPO * Correction Factor: 20 mg/dL/unit * Carbohydrate ratio: 1 unit / 8 grams of carbohydrates consumed * Goal range: 110-140 mg/dL PLAN FOR DISCHARGE: * Current A1c (10.4%) indicates sub-optimal glycemic control as an outpatient. * CDE spoke with patient yesterday and it seems that he is compliant with his Lantus. * Consider adding prandial coverage or increasing Lantus on discharge (although , patient reports reasonable fasting BSGs). * Recommend f/u with PCP for DM management after discharge to optimize A1c. * Recommend increase in SMBG after discharge until BSGs improve.
[2017-12-22 09:50] LABS: INR 5.4 (0.9-1.1)
--- NOTE | 2017-12-22 11:39 | PULMONARY PROGRESS NOTE ---
DATE: 12/22/2017 PROBLEM LIST: Includes: 1. Bilateral pneumonia secondary to methicillin sensitive staph aureus. 2. Acute influenza A. 3. Leukocytosis. SUBJECTIVE: The patient reports that he is about 90% better today than when he came in. He states that he does still have some cough. The cough is generally nonproductive, although he does get some mucus up that is yellow and green in color. He states that he does notice some wheezing when he is exerting himself. He also does have some shortness of breath. He continues to be on oxygen at 4 liters per minute. He is not on oxygen generally at home. He states that he has been up walking in the [place] without difficulty. He states that his appetite has come back. He is eating a little bit better, states that he did move his bowels today. Denies any other concerns or problems at this time. OBJECTIVE: GENERAL: The patient is an 87-year-old male in no acute distress. He is lying in bed. He is alert and oriented x3. Mood is good. Affect is good. VITAL SIGNS: Temp 36.5, pulse 80, respirations 20, blood pressure is 138/61; pulse ox is 93-96%, currently is on 4 liters. HEENT: Normocephalic, atraumatic. Pupils equal, round react to light and accommodation. Extraocular movements are intact. [place] moist gingival and buccal mucosa. NECK: Short, thick. No mass, no adenopathy, no bruit. No tenderness noted. CHEST: With diffuse expiratory wheeze, predominantly in the upper airways, as well as rhonchi bilaterally. Actually I had to have the patient hold his breath in order to auscultate lung sounds. CARDIOVASCULAR: He has regular rate and rhythm. I did not appreciate any murmurs, gallops or rubs, although cannot say 100% definitively. ABDOMEN: Bowel sounds are present. Abdomen is soft, nontender. No guarding, rigidity or organomegaly. EXTREMITIES: Trace edema, no erythema, no tenderness. LABORATORY DATA: Shows a white count of 18,000, H&H of 11.2 and 33.6, and platelet count of 318,000. INR today of 5.4. BUN 37, creatinine 1.78. IMAGING DATA: The patient did have a chest x-ray today. Chest x-ray is showing a worsening of the right upper lobe with unchanged areas on the left greater than right bibasilar opacities. IMPRESSION AND PLAN: This is an 87-year-old male who appears to have bilateral pneumonia with some questionable worsening in the right upper lobe. At this point, the patient is clinically improving; however, will need to continue following closely. Sputum culture did show methicillin sensitive Staph aureus and he is on appropriate antibiotic for this. At this point, I would recommend to continue aggressive pulmonary toilet. Continue current antibiotics as they are. Continue guaifenesin recommend that we do, incentive spirometry and flutter valve to mobilize secretions. We changed the nebulization q. 4 hours over the next 24 hours to see if this helps to mobilize secretions as well. Will reevaluate the patient in the morning, would probably recommend to do follow up chest x-ray on Wednesday.
--- NOTE | 2017-12-22 19:52 | Progress Note ---
Medicine Progress Note Date & Time of Visit: Dec 22, 2017 at 19:42. Subjective Pt was seen and examined Lying in bed with no distress Pt said that his breathing slightly improves He continues requiring 4L oxygen Pt said that he was not on oxygen before the admission Denies any chest pain, palpitation and fever Objective Last 8 Hrs Date Time Temp Pulse Resp B/P (MAP) Pulse Ox O2 Delivery O2 Flow Rate FiO2 12/22/17 19:09 36.8 68 20 116/56 (76) 94 Nasal Cannula 4.0 12/22/17 16:00 Nasal Cannula 4.0 12/22/17 15:12 36.4 69 20 113/58 (76) 95 Nasal Cannula 4.0 12/22/17 15:10 68 16 94 Nasal Cannula 4.0 12/22/17 12:00 Nasal Cannula 4.0 Physical Exam: General- No acute distress Head- atraumatic Eyes- PERRL, EOMI ENT- oropharynx clear Neck- supple, no JVD Lungs- +wheezing Heart- regular rhythm Abdomen- normal bowel sounds Extremities- +edema Neuro- alert, oriented x 3; PERRL, EOMI Skin- warm & dry Laboratory Results: Last 24 Hours Test 12/21/17 20:23 12/21/17 23:46 12/22/17 06:43 12/22/17 07:19 Bedside Glucose 142 mg/dl 81 mg/dl 269 mg/dl White Blood Count 18.04 K/uL Red Blood Count 3.73 M/uL Hemoglobin 11.2 g/dL Hematocrit 33.6 % Mean Corpuscular Volume 90.1 fL Mean Corpuscular Hemoglobin 30.0 pg Mean Corpuscular Hemoglobin Concent 33.3 g/dl RDW Standard Deviation 47.6 fL RDW Coefficient of Variation 14.4 % Platelet Count 318 K/uL Mean Platelet Volume 9.0 fL Sodium Level 138 mmol/L Potassium Level 4.2 mmol/L Chloride Level 107 mmol/L Carbon Dioxide Level 21 mmol/L Anion Gap 10.0 mmol/L Blood Urea Nitrogen 37 mg/dl Creatinine 1.78 mg/dl Est Creatinine Clear Calc Drug Dose 32.7 ml/min Estimated GFR () 39.2 Estimated GFR (Non- 33.8 BUN/Creatinine Ratio 20.9 Random Glucose 242 mg/dl Calcium Level 7.7 mg/dl Test 12/22/17 09:16 12/22/17 11:49 12/22/17 16:42 Prothrombin Time 55.1 SECONDS Prothromb Time International Ratio 5.4 Bedside Glucose 268 mg/dl 109 mg/dl Assessment & Plan PNEUMONIA Community acquired pneumonia CXR showed subtle left basal airspace opacity suspicious for a pneumonia Repeat CXR showed Progression of bilateral airspace opacities which favors multifocal pneumonia. sputum cx positive for staph aureus (MSSA) Was starting on Zosyn then changed On Ceftriaxone and Doxycycline Pulmonary on board Continue PT vibration and Neb treatment mucinex adding Repeat CXR in am 12/22 Slightly improves clinically Repeat CXR today showed progressively worsened mixed interstitial and alveolar opacities of the right upper lobe with unchanged left greater than right bibasilar opacities. Completed course of abx with doxy and rocephin Continue prednisone Pulmonary on board ACUTE HYPOXEMIC RESPIRATORY FAILURE Secondary to pneumonia Influenza positive Since symptoms has been going on for more than 1 week, No Tamiflu starting clinically improved HYPERGLYCEMIA WITH TYPE 2 DM Pharmacy on board for glycemic management Recent Hb A1c 10.4 Continue insulin Will monitor BS [place] ON CKD STAGE 3 Possible related to acute illness/dehydration Received IVF Creatine worsening today ELEVATED WBC Mostly related to steroid continue monitor HYPONATREMIA Due to hyperglycemia Stable HX OF A FLUTTER : Rate and rhythm controlled Cont amiodarone Coumadin on hold INR 5.4 today FULL CODE DVT px on Coumadin INR 5.4 DISPOSITION ; PT/OT prior to discharge medicine follow up with Dr Ward Current Inpatient Medications: Current Inpatient Medications Medications (Trade) Dose Ordered Sig/Krystal Route Start Time Stop Time Status Last Admin Dose Admin Miscellaneous Information (Consult Glycemic Management Pharmacy) 1 ea UD PRN N/A 12/15/17 18:01 01/14/18 18:00 Acetaminophen (Tylenol Tab) 650 mg Q4H PRN PO 12/15/17 17:15 01/14/18 17:14 12/18/17 05:52 650 MG Al Hydrox/Mg Hydrox/Simethicone (Maalox Max Susp) 15 ml Q4H PRN PO 12/15/17 17:15 01/14/18 17:14 Magnesium Hydroxide (Milk Of Magnesia Susp) 30 ml Q12H PRN PO 12/15/17 17:15 01/14/18 17:14 Ondansetron HCl (Zofran Inj) 4 mg Q6H PRN IV 12/15/17 17:15 01/14/18 17:14 Polyethylene (Miralax Powder Packet) 17 gm DAILY PRN PO 12/15/17 17:15 01/14/18 17:14 Amiodarone HCl (Cordarone Tab) 200 mg DAILY PO 12/16/17 09:00 01/15/18 08:59 12/22/17 08:33 200 MG Tamsulosin HCl (Flomax Cap) 0.4 mg DAILY PO 12/16/17 09:00 01/15/18 08:59 12/22/17 08:33 0.4 MG Cholecalciferol (Vitamin D Tab) 2,000 inter.unit DAILY PO 12/16/17 09:00 01/15/18 08:59 12/22/17 08:33 2,000 INTER.UNIT Pantoprazole Sodium (Protonix Tab) 40 mg QAM PO 12/16/17 09:00 01/15/18 08:59 12/22/17 08:33 40 MG Ipratropium [place] (Atrovent 0.02% 0.5MG/2.5ML Neb) 0.5 mg Q2H PRN INH 12/15/17 21:15 01/14/18 21:14 Levalbuterol (Xopenex 1.25MG/ 0.5ML Neb) 1.25 mg Q2H PRN INH 12/15/17 21:15 01/14/18 21:14 Insulin Aspart (novoLOG ASPART) SLIDING SCALE ACHS SC 12/16/17 21:00 01/15/18 20:59 12/22/17 17:46 4 UNITS Hydrocodone Bit/ Homatropine Methylb (Hycodan Syrup) 5 ml Q6H PRN PO 12/17/17 08:00 12/31/17 07:59 12/18/17 16:45 5 ML Magnesium Chloride (Slow-Mag Tab) 128 mg DAILY PO 12/17/17 10:45 01/16/18 10:44 12/22/17 08:33 128 MG Warfarin Sodium (Coumadin Tab) 3 mg DAILY@1600 PO 12/21/17 16:00 01/19/18 15:59 Future Hold 12/21/17 15:54 3 MG Prednisone (PredniSONE TAB) 40 mg DAILY PO 12/22/17 09:00 01/21/18 08:59 2/28/18 08:33 40 MG Guaifenesin (Mucinex Contr Rel Tab) 600 mg Q12 PO 12/21/17 21:00 01/20/18 20:59 12/22/17 08:33 600 MG Insulin Glargine (Lantus Solostar Pen) 30 units QAM SC 12/22/17 09:00 01/21/18 08:59 12/22/17 08:46 30 UNITS Insulin Human NPH (novoLIN-N NPH) 30 units QAM SC 12/22/17 09:00 01/21/18 08:59 12/22/17 09:16 30 UNITS Doxycycline Hyclate (Vibramycin Cap) 100 mg BID PO 12/22/17 21:00 12/25/17 08:59 Ipratropium [place] (Atrovent 0.02% 0.5MG/2.5ML Neb) 0.5 mg Q4RWA INH 12/22/17 12:00 01/15/18 02:59 12/22/17 19:30 0.5 MG Levalbuterol (Xopenex 1.25MG/ 0.5ML Neb) 1.25 mg Q4RWA INH 12/22/17 12:00 01/15/18 02:59 12/22/17 19:30 1.25 MG
[2017-12-22] MEDS: DOXYCYCLINE HYCLATE 100 MG CAP PO SCH (21:26)
[2017-12-23] VITALS (11 sets, daily range): BP systolic 112–165; BP diastolic 56–68; PULSE 65–87; TEMP 36.5–36.8; O2SAT 91–98
[2017-12-23] MEDS: IPRATROPIUM BROMIDE NEB SOLN 0.02% 2.5 ML VIAL INH SCH ×4 (06:59→20:05)
[2017-12-23] MEDS: LEVALBUTEROL 1.25MG/0.5ML NEB INH SCH ×4 (06:59→20:06)
[2017-12-23 07:24] LABS: HEMATOCRIT 33.6 % (42-52); HEMOGLOBIN 11.4 g/dL (14.0-18.0); MEAN CELL VOLUME 89.1 fL (80-100); MEAN CORPUSCULAR HEMOGLOBIN 30.2 pg (25-34); MEAN CORPUSCULAR HGB CONC 33.9 g/dl (32-36); MEAN PLATELET VOLUME 8.6 fL (7.4-10.4); PLATELET COUNT 302 K/uL (130-400); RED CELL DISTRIBUTION WIDTH CV 14.7 % (11.5-14.5); RED CELL DISTRIBUTION WIDTH SD 48.3 fL (36.4-46.3); WHITE BLOOD COUNT 18.46 K/uL (4.8-10.8)
[2017-12-23 07:44] LABS: INR 5.4 (0.9-1.1)
[2017-12-23 07:49] LABS: CALCIUM 7.5 mg/dl (8.5-10.1); CREATININE 1.64 mg/dl (0.60-1.40); POTASSIUM 3.7 mmol/L (3.5-5.1)
[2017-12-23] MEDS: INSULIN ASPART 100 UNITS/ML 3 ML PEN SC SCH ×4 (08:03→21:00)
[2017-12-23] MEDS: GUAIFENESIN 600 MG TABCR PO SCH ×2 (08:07→22:00)
[2017-12-23] MEDS: AMIODARONE 200 MG TAB PO SCH (08:07)
[2017-12-23] MEDS: TAMSULOSIN HCL 0.4 MG CAP PO SCH (08:08)
[2017-12-23] MEDS: PANTOprazole SOD 40 MG TAB PO SCH (08:08)
[2017-12-23] MEDS: CHOLECALCIFEROL 1000 INTER.UNIT TAB PO SCH (08:08)
[2017-12-23] MEDS: DOXYCYCLINE HYCLATE 100 MG CAP PO SCH ×2 (08:08→21:00)
[2017-12-23] MEDS: MAGNESIUM CHLORIDE 64MG DELAYED REL TAB PO SCH (08:08)
[2017-12-23] MEDS: INSULIN HUMAN NPH SC SCH (08:10)
[2017-12-23] MEDS ORDERED: INSULIN GLARGINE SOLOSTAR 100 UNITS/ML 3 ML PEN SC SCH (09:00)
--- NOTE | 2017-12-23 10:53 | Pharmacy Progress Note ---
Pharmacy Glycemic Short Note 2 Date of Service Dec 23, 2017. OUTPATIENT ANTIDIABETIC REGIMEN: * Lantus 22 units SQ daily * HbA1c: 10.4% (12/15/17) ASSESSMENT: * See progress note from 12/20/17 for background info, in short: * Continuing to titrate SQ basal/bolus insulin regimen in the setting of uncontrolled diabetes and steroid induced hyperglycemia * Steroids transitioned from Solu-medrol IV to Prednisone PO on 12/22. NPH was added to regimen to cover effect of prednisone. * Patient received 98 units of insulin on 12/22 * 50 units of basal insulin * 48 units of prandial insulin * BSGs over the past 24 hours: 269, 268, 109, 92 * Changes needed to regimen: * Fasting BSG of 65 mg/dL is below goal. Will decrease Lantus. * Prandial BSGs are at goal but trending downward throughout the day despite loosening CF/CR yesterday, therefore I will trial removing the carb ratio. PLAN FOR INPATIENT GLYCEMIC CONTROL: * Basal insulin - decrease * Lantus 20 units SQ qAM * NPH - while on prednisone * Continue 30 units SQ qQM (0.35 unit/kg) * Bolus insulin * Novolog ACHS while diet ordered and Q6 when NPO * Correction Factor: 15 mg/dL/unit * Remove carbohydrate ratio * Goal range: 110-140 mg/dL PLAN FOR DISCHARGE: * Current A1c (10.4%) indicates sub-optimal glycemic control as an outpatient. * CDE spoke with patient this admission and it seems that he is compliant with his Lantus. * Consider adding prandial coverage or increasing Lantus on discharge (although , patient reports reasonable fasting BSGs). * Recommend f/u with PCP for DM management after discharge to optimize A1c. * Recommend increase in SMBG after discharge until BSGs improve.
--- NOTE | 2017-12-23 15:33 | PULMONARY PROGRESS NOTE ---
DATE: 12/23/2017 TIME: 02:35 p.m. SUBJECTIVE: The patient states he continues to feel a little better. Nursing does report that he seems to get short of breath easily going to the bathroom. He is still requiring oxygen. The patient denied having any significant shortness of breath. He stated that he had walked the hallway twice with physical therapy. Last night, he did cough up a lot of phlegm. He estimates 10 times or more he coughed phlegm into a tissue. This did affect his sleep somewhat. He seems quite confident that he brought up a lot of mucus. He did have a chest x-ray done yesterday that actually reported progression of the infiltrates, particularly in the area of the right upper lobe. He denies any chills, fevers or sweats. OBJECTIVE: GENERAL: The patient appeared comfortable at rest. VITAL SIGNS: Temperature is 36.8. Heart rate was 66 per minute. Blood pressure 112/56. LUNGS: Lung mohr revealed very mild rhonchi. These were less than when I examined him 2 days earlier. Saturation was 98% on 4 liters. ABDOMEN: Soft and nontender. EXTREMITIES: Showed some edema of the right foot and ankle and to a lesser degree on the left. LABORATORY DATA: White count today was 18.46. This is still elevated above desirable, although we do not know what his baseline white count is. Hemoglobin 11.4. Platelets 302,000. INR today was 5.4. Electrolytes show sodium 144, potassium 3.7, chloride 112, and bicarbonate 25. BUN was 39 with a creatinine of 1.64. The prior creatinine was 1.78. IMPRESSIONS: 1. Bilateral pneumonia secondary to methicillin-sensitive Staphylococcus aureus. 2. Acute influenza A. 3. Leukocytosis. RECOMMENDATIONS: The patient seems clinically improved. He still is short of breath with fairly minimal exertion as per nursing. We had ordered a flutter valve, which I do not believe he has received. We are going to request that the nurses contact respiratory for this. I am going to repeat the x-ray tomorrow in light of the fact yesterday's x-ray was worse. That may determine how long we keep him. He is on doxycycline. He is still on prednisone 40 mg per day. He is getting the levalbuterol treatments and ipratropium treatments. If the x-ray tomorrow is worse, he will need an alternative antibiotic coverage. If the x-ray would be better and he would continue clinically improving, discharge could be considered in 24-48 hours.
--- NOTE | 2017-12-23 21:11 | Progress Note ---
Medicine Progress Note Date & Time of Visit: Dec 23, 2017 at 21:10. Subjective Pt was seen and examined Sitting in chair with no distress Pt said he feels much better He said that he coughed out a lot of phlegm last night Denies any chest pain, palpitation and fever Objective Last 8 Hrs Date Time Temp Pulse Resp B/P (MAP) Pulse Ox O2 Delivery O2 Flow Rate FiO2 12/23/17 20:06 68 16 94 Nasal Cannula 4.0 12/23/17 20:00 36.8 68 16 149/68 (95) 93 Nasal Cannula 4.0 12/23/17 20:00 Nasal Cannula 4.0 12/23/17 15:00 36.7 67 16 117/66 (83) 94 Nasal Cannula 4.0 12/23/17 15:00 Nasal Cannula 4.0 12/23/17 14:47 67 16 95 Nasal Cannula 4.0 Physical Exam: General- No acute distress Head- atraumatic Eyes- PERRL, EOMI ENT- oropharynx clear Neck- supple, no JVD Lungs- +wheezing Heart- regular rhythm Abdomen- normal bowel sounds Extremities- +edema Neuro- alert, oriented x 3; PERRL, EOMI Skin- warm & dry Laboratory Results: Last 24 Hours Test 12/23/17 07:02 12/23/17 07:15 12/23/17 07:32 12/23/17 11:09 White Blood Count 18.46 K/uL Red Blood Count 3.77 M/uL Hemoglobin 11.4 g/dL Hematocrit 33.6 % Mean Corpuscular Volume 89.1 fL Mean Corpuscular Hemoglobin 30.2 pg Mean Corpuscular Hemoglobin Concent 33.9 g/dl RDW Standard Deviation 48.3 fL RDW Coefficient of Variation 14.7 % Platelet Count 302 K/uL Mean Platelet Volume 8.6 fL Prothrombin Time 55.3 SECONDS Prothromb Time International Ratio 5.4 Sodium Level 144 mmol/L Potassium Level 3.7 mmol/L Chloride Level 112 mmol/L Carbon Dioxide Level 25 mmol/L Anion Gap 7.0 mmol/L Blood Urea Nitrogen 39 mg/dl Creatinine 1.64 mg/dl Est Creatinine Clear Calc Drug Dose 35.5 ml/min Estimated GFR () 43.2 Estimated GFR (Non- 37.3 BUN/Creatinine Ratio 23.8 Random Glucose 54 mg/dl Calcium Level 7.5 mg/dl Bedside Glucose 65 mg/dl 75 mg/dl 152 mg/dl Test 12/23/17 16:21 12/23/17 20:45 Bedside Glucose 78 mg/dl 95 mg/dl Assessment & Plan PNEUMONIA Community acquired pneumonia CXR showed subtle left basal airspace opacity suspicious for a pneumonia Repeat CXR showed Progression of bilateral airspace opacities which favors multifocal pneumonia. sputum cx positive for staph aureus (MSSA) Was starting on Zosyn then changed On Ceftriaxone and Doxycycline Pulmonary on board Continue PT vibration and Neb treatment mucinex adding Repeat CXR in am 12/23 Simproves clinically CXR yesterday showed progressively worsened mixed interstitial and alveolar opacities of the right upper lobe with unchanged left greater than right bibasilar opacities. Completed course of abx with doxy and rocephin Continue prednisone will repeat cxr in am Pulmonary on board ACUTE HYPOXEMIC RESPIRATORY FAILURE Secondary to pneumonia Influenza positive Since symptoms has been going on for more than 1 week, No Tamiflu starting clinically improved HYPERGLYCEMIA WITH TYPE 2 DM Pharmacy on board for glycemic management Recent Hb A1c 10.4 Continue insulin Will monitor BS OKSANA ON CKD STAGE 3 Possible related to acute illness/dehydration Creatine in the past year baseline 1.8 to 1.9 Received IVF Stable ELEVATED WBC Mostly related to steroid continue monitor HYPONATREMIA Due to hyperglycemia Stable HX OF A FLUTTER : Rate and rhythm controlled Cont amiodarone Coumadin on hold INR 5.4 today FULL CODE DVT px hold Coumadin INR 5.4 DISPOSITION ; PT/OT prior to discharge medicine follow up with Dr Ward Current Inpatient Medications: Current Inpatient Medications Medications (Trade) Dose Ordered Sig/Krystal Route Start Time Stop Time Status Last Admin Dose Admin Miscellaneous Information (Consult Glycemic Management Pharmacy) 1 ea UD PRN N/A 12/15/17 18:01 01/14/18 18:00 Acetaminophen (Tylenol Tab) 650 mg Q4H PRN PO 12/15/17 17:15 01/14/18 17:14 12/18/17 05:52 650 MG Al Hydrox/Mg Hydrox/Simethicone (Maalox Max Susp) 15 ml Q4H PRN PO 12/15/17 17:15 01/14/18 17:14 Magnesium Hydroxide (Milk Of Magnesia Susp) 30 ml Q12H PRN PO 12/15/17 17:15 01/14/18 17:14 Ondansetron HCl (Zofran Inj) 4 mg Q6H PRN IV 12/15/17 17:15 01/14/18 17:14 Polyethylene (Miralax Powder Packet) 17 gm DAILY PRN PO 12/15/17 17:15 01/14/18 17:14 Amiodarone HCl (Cordarone Tab) 200 mg DAILY PO 12/16/17 09:00 01/15/18 08:59 12/23/17 08:07 200 MG Tamsulosin HCl (Flomax Cap) 0.4 mg DAILY PO 12/16/17 09:00 01/15/18 08:59 12/23/17 08:08 0.4 MG Cholecalciferol (Vitamin D Tab) 2,000 inter.unit DAILY PO 12/16/17 09:00 01/15/18 08:59 12/23/17 08:08 2,000 INTER.UNIT Pantoprazole Sodium (Protonix Tab) 40 mg QAM PO 12/16/17 09:00 01/15/18 08:59 12/23/17 08:08 40 MG Ipratropium [place] (Atrovent 0.02% 0.5MG/2.5ML Neb) 0.5 mg Q2H PRN INH 12/15/17 21:15 01/14/18 21:14 Levalbuterol (Xopenex 1.25MG/ 0.5ML Neb) 1.25 mg Q2H PRN INH 12/15/17 21:15 01/14/18 21:14 Insulin Aspart (novoLOG ASPART) SLIDING SCALE ACHS SC 12/16/17 21:00 01/15/18 20:59 12/23/17 12:15 1 UNITS Hydrocodone Bit/ Homatropine Methylb (Hycodan Syrup) 5 ml Q6H PRN PO 12/17/17 08:00 12/31/17 07:59 12/18/17 16:45 5 ML Magnesium Chloride (Slow-Mag Tab) 128 mg DAILY PO 12/17/17 10:45 01/16/18 10:44 12/23/17 08:08 128 MG Warfarin Sodium (Coumadin Tab) 3 mg DAILY@1600 PO 12/21/17 16:00 01/19/18 15:59 Future Hold 12/21/17 15:54 3 MG Prednisone (PredniSONE TAB) 40 mg DAILY PO 12/22/17 09:00 01/21/18 08:59 12/23/17 08:08 40 MG Guaifenesin (Mucinex Contr Rel Tab) 600 mg Q12 PO 12/21/17 21:00 01/20/18 20:59 12/23/17 08:07 600 MG Insulin Human NPH (novoLIN-N NPH) 30 units QAM SC 12/22/17 09:00 01/21/18 08:59 12/23/17 08:10 30 UNITS Doxycycline Hyclate (Vibramycin Cap) 100 mg BID PO 12/22/17 21:00 12/25/17 08:59 12/23/17 08:08 100 MG Ipratropium [place] (Atrovent 0.02% 0.5MG/2.5ML Neb) 0.5 mg Q4RWA INH 12/22/17 12:00 01/15/18 02:59 12/23/17 20:05 0.5 MG Levalbuterol (Xopenex 1.25MG/ 0.5ML Neb) 1.25 mg Q4RWA INH 12/22/17 12:00 01/15/18 02:59 12/23/17 20:06 1.25 MG Insulin Glargine (Lantus Solostar Pen) 20 units QAM SC 12/23/17 09:00 01/22/18 08:59 12/23/17 08:10 20 UNITS
[2017-12-24] VITALS (15 sets, daily range): BP systolic 108–152; BP diastolic 54–74; PULSE 64–89; TEMP 36.5–36.9; O2SAT 87–98
[2017-12-24] MEDS ORDERED: ALBUT/IPRATROP 3MG/0.5MG NEB 3 ML VIAL INH STA (02:30)
[2017-12-24] MEDS ORDERED: FUROSEMIDE INJ 60 MG in SYRINGE 0 ML IV STA (02:52)
[2017-12-24] MEDS ORDERED: FUROSEMIDE 40 MG/4 ML VIAL IV STA (03:02)
[2017-12-24 03:03] LABS: BASO % 0.1 %; BASO ABS # 0.01 K/uL (0-0.2); HEMATOCRIT 33.8 % (42-52); HEMOGLOBIN 11.4 g/dL (14.0-18.0); IG# 0.49 K/uL (0.00-0.02); LYMPH % 4.8 %; LYMPH ABS # 0.95 K/uL (1.2-3.4); MEAN CELL VOLUME 89.9 fL (80-100); MEAN CORPUSCULAR HEMOGLOBIN 30.3 pg (25-34); MEAN CORPUSCULAR HGB CONC 33.7 g/dl (32-36); MEAN PLATELET VOLUME 8.5 fL (7.4-10.4); MONO ABS # 0.98 K/uL (0.11-0.59); NEUT % 87.6 %; NEUT ABS # 17.26 K/uL (1.4-6.5); PLATELET COUNT 294 K/uL (130-400); RED CELL DISTRIBUTION WIDTH CV 14.8 % (11.5-14.5); RED CELL DISTRIBUTION WIDTH SD 48.4 fL (36.4-46.3); WHITE BLOOD COUNT 19.69 K/uL (4.8-10.8)
[2017-12-24 03:20] LABS: CALCIUM 7.5 mg/dl (8.5-10.1); CREATININE 1.75 mg/dl (0.60-1.40); POTASSIUM 3.8 mmol/L (3.5-5.1)
[2017-12-24 03:29] LABS: INR 4.3 (0.9-1.1)
[2017-12-24] MEDS ORDERED: POTASSIUM CHLORIDE 10 MEQ TABCR PO STA (03:37)
[2017-12-24] MEDS ORDERED: PHYTONADIONE 5 MG TAB PO STA (03:37)
[2017-12-24] MEDS ORDERED: [UNRECOGNIZED DRUG - OTHER] PO STA ×3 (03:41)
[2017-12-24] MEDS ORDERED: ORA SWEET PO STA ×3 (03:41)
[2017-12-24] MEDS ORDERED: ORA PO STA ×3 (03:41)
[2017-12-24] MEDS ORDERED: PHYTONADIONE PED PO STA ×3 (03:41)
--- NOTE | 2017-12-24 07:01 | DIAGNOSTIC IMAGING REPORT ---
CHEST ONE VIEW PORTABLE CLINICAL HISTORY: Hypoxia. COMPARISON STUDY: Chest radiograph December 22, 2017. FINDINGS: There is no pneumothorax. There are trace bilateral pleural effusions. Diffuse interstitial thickening has slightly progressed. Right upper lung and left basilar airspace opacities persist. Right hemithorax volume loss is noted. IMPRESSION: 1. Slight progression of interstitial thickening and bilateral opacities since prior exam. Pneumonia is favored although pulmonary edema could appear similar. 2. Right hemithorax volume loss. 3. Trace bilateral pleural effusions. Electronically signed by: Taye Estrella M.D. 12/24/2017 7:00 AM Dictated Date/Time: 12/24/2017 6:58 AM
[2017-12-24] MEDS: LEVALBUTEROL 1.25MG/0.5ML NEB INH SCH ×4 (07:36→19:01)
[2017-12-24] MEDS: IPRATROPIUM BROMIDE NEB SOLN 0.02% 2.5 ML VIAL INH SCH ×4 (07:36→19:01)
--- NOTE | 2017-12-24 08:06 | DIAGNOSTIC IMAGING REPORT ---
CHEST 2 VIEWS ROUTINE CLINICAL HISTORY: f/u pneumonia dyspnea COMPARISON STUDY: 12/24/2017 2:35 AM FINDINGS: Slight progression of the patient's interstitial infiltrative change of the right upper lobe and left base. Right base and left upper lobe appears similar. Persistent slight blunting of the of the lateral costophrenic angles. IMPRESSION: Slight progression of the patient's bilateral parenchymal infiltrative change. The above report was generated using voice recognition software. It may contain grammatical, syntax or spelling errors. Electronically signed by: Raul Gamez M.D. 12/24/2017 8:04 AM Dictated Date/Time: 12/24/2017 8:02 AM
[2017-12-24] MEDS: INSULIN ASPART 100 UNITS/ML 3 ML PEN SC SCH ×4 (08:36→21:18)
[2017-12-24] MEDS: PANTOprazole SOD 40 MG TAB PO SCH (08:38)
[2017-12-24] MEDS: GUAIFENESIN 600 MG TABCR PO SCH ×2 (08:38→21:13)
[2017-12-24] MEDS: CHOLECALCIFEROL 1000 INTER.UNIT TAB PO SCH (08:38)
[2017-12-24] MEDS: DOXYCYCLINE HYCLATE 100 MG CAP PO SCH ×2 (08:38→21:12)
[2017-12-24] MEDS: AMIODARONE 200 MG TAB PO SCH (08:38)
[2017-12-24] MEDS: MAGNESIUM CHLORIDE 64MG DELAYED REL TAB PO SCH (08:38)
[2017-12-24] MEDS: TAMSULOSIN HCL 0.4 MG CAP PO SCH (08:38)
[2017-12-24] MEDS: INSULIN HUMAN NPH SC SCH (08:41)
[2017-12-24] MEDS ORDERED: INSULIN GLARGINE SOLOSTAR 100 UNITS/ML 3 ML PEN SC SCH (09:00)
--- NOTE | 2017-12-24 14:10 | Pharmacy Progress Note ---
Pharmacy Glycemic Short Note 2 Date of Service Dec 24, 2017. OUTPATIENT ANTIDIABETIC REGIMEN: * Lantus 22 units SQ daily * HbA1c: 10.4% (12/15/17) ASSESSMENT: * See progress note from 12/20/17 for background info, in short: * Continuing to titrate SQ basal/bolus insulin regimen in the setting of uncontrolled diabetes and steroid induced hyperglycemia * Steroids transitioned from Solu-medrol IV to Prednisone PO on 12/22. NPH was added to regimen to cover hyperglycemic effect of prednisone. * Patient received 51 units of insulin on 12/22 * 20 units of basal insulin * 31 units of prandial insulin BSGs over the past 24 hours: * 12/23/17: 65, 70, 152, 78, 95, * 12/24/17: 39, 69, 93, 119, 215 * Changes needed to regimen: * Repeat hypoglycemia this AM despite decreasing dose from 30 to 20 units yesterday. Will further decrease dose to 10 units today to prevent low tomorrow. * Prandial BSGs are at goal. Continue NPH 30 units for prednisone 40mg daily. Pt did receive an extra dose of prednisone this morning at 0300. Expect BSGs to be slightly elevated today. Will not increase NPH though since BSGs were trending low yesterday. PLAN FOR INPATIENT GLYCEMIC CONTROL: * Basal insulin - decrease * Lantus 10 units SQ qAM * NPH - while on prednisone * Continue 30 units SQ qQM (0.35 unit/kg) * Bolus insulin * Novolog ACHS while diet ordered and Q6 when NPO * Correction Factor: 15 mg/dL/unit * NO carbohydrate ratio... NPH is serving this purpose * Goal range: 110-140 mg/dL PLAN FOR DISCHARGE: * Current A1c (10.4%) indicates sub-optimal glycemic control as an outpatient. * CDE spoke with patient this admission and it seems that he is compliant with his Lantus. * Consider adding prandial coverage or increasing Lantus on discharge (although , patient reports reasonable fasting BSGs). * Recommend f/u with PCP for DM management after discharge to optimize A1c. * Recommend increase in SMBG after discharge until BSGs improve.
--- NOTE | 2017-12-24 14:34 | PULMONARY PROGRESS NOTE ---
DATE: 12/24/2017 PROBLEM LIST: Includes: 1. Bilateral pneumonia secondary to methicillin sensitive staph aureus. 2. Acute influenza A. 3. Leukocytosis. SUBJECTIVE: The patient actually clinically is about the same, a little bit worse today. Apparently overnight, he was given Lasix and had a chest x-ray done. He states he did not sleep well, he was up voiding all night. He states he is getting out of breath when he gets up to go to the bathroom. He continues to have cough and is congested in his chest. He continues to have some wheezing. He has no chest discomfort. He has no chest heaviness. He did have 2 chest x-rays since yesterday and both have shown some progression of the right upper lobe and left lower lobe infiltrate. No GI symptoms at this time. No nausea or vomiting. Bowels are moving well. OBJECTIVE: GENERAL: The patient is an 87-year-old male lying in bed, in no acute respiratory distress. He is alert and oriented x3. Mood is good. Affect is good. VITAL SIGNS: Temp 36.8, pulse 69, respirations 18, blood pressure is 108/74, pulse ox 96% on 5 liters. HEENT: Normocephalic, atraumatic. Pupils equal, round, reactive to light and accommodation. Extraocular movements are intact. [place] moist gingival and buccal mucosa. NECK: Supple. No mass. No adenopathy. No bruit. CHEST: The patient continues to have some rhonchi in the upper lobes bilaterally as well as a left lower lobe. CARDIOVASCULAR: Regular rate and rhythm. No murmurs, gallops or rubs. ABDOMEN: Soft, nontender. No guarding, rigidity or organomegaly. EXTREMITIES: No erythema or edema. NEUROLOGIC: Cranial nerves II through XII are intact. No focal deficit noted. LABORATORY DATA: H&H 11.4 and 32.8, platelet count 294,000. The patient did have an ABG done at 2:00 this morning showing a pH of 7.4, pCO2 of 37, pO2 of 72, and bicarbonate of 25. INR 4.3. IMAGING DATA: Chest x-ray showing right upper lobe interstitial change. IMPRESSION AND PLAN: This is an 87-year-old male with bilateral pneumonia, did have a sputum culture showing methicillin sensitive staph aureus, he also tested positive for influenza A. At this point, the patient is relieved, not showing much of a improvement compared to the last time I saw him and he maybe a little bit worse. Did receive some diuresis overnight which may have helped slightly. At this point, recommend to continue prednisone 40 mg daily. In reviewing his medicines, he is on amiodarone. The patient was initially started on the amiodarone in 2012. Unsure if this may be contributing to his pulmonary status at all. Will discuss further with Dr. Dutta, may need to consider a chest CT for this. Otherwise, continue rest of medications as they are. MTDD
--- NOTE | 2017-12-24 19:31 | Progress Note ---
Medicine Progress Note Date & Time of Visit: Dec 24, 2017 at 19:26. Subjective Pt was seen and examined Sitting in bed with no distress eating breakfast Pt said that his breathing seems improved Denies any chest pain, palpitation, dizziness and SOB Objective Last 8 Hrs Date Time Temp Pulse Resp B/P (MAP) Pulse Ox O2 Delivery O2 Flow Rate FiO2 12/24/17 19:04 36.6 69 20 132/68 (89) 98 Nasal Cannula 4.0 12/24/17 19:03 67 16 94 Nasal Cannula 4.0 12/24/17 16:00 94 Nasal Cannula 4.0 12/24/17 15:34 89 14 95 Nasal Cannula 4.0 12/24/17 14:59 36.7 68 20 121/61 (81) 92 Nasal Cannula 4.0 12/24/17 12:00 Nasal Cannula 5.0 12/24/17 11:32 36.8 69 18 108/74 (85) 96 2.0 12/24/17 11:27 68 16 97 Nasal Cannula 5.0 Physical Exam: General- No acute distress Head- atraumatic Eyes- PERRL, EOMI ENT- oropharynx clear Neck- supple, no JVD Lungs- +wheezing Heart- regular rhythm Abdomen- normal bowel sounds Extremities- +edema Neuro- alert, oriented x 3; PERRL, EOMI Skin- warm & dry Laboratory Results: Last 24 Hours Test 12/23/17 20:45 12/24/17 02:14 12/24/17 02:37 12/24/17 02:47 Bedside Glucose 95 mg/dl 39 mg/dl 69 mg/dl White Blood Count 19.69 K/uL Red Blood Count 3.76 M/uL Hemoglobin 11.4 g/dL Hematocrit 33.8 % Mean Corpuscular Volume 89.9 fL Mean Corpuscular Hemoglobin 30.3 pg Mean Corpuscular Hemoglobin Concent 33.7 g/dl Platelet Count 294 K/uL Mean Platelet Volume 8.5 fL Neutrophils (%) (Auto) 87.6 % Lymphocytes (%) (Auto) 4.8 % Monocytes (%) (Auto) 5.0 % Eosinophils (%) (Auto) 0.0 % Basophils (%) (Auto) 0.1 % Neutrophils # (Auto) 17.26 K/uL Lymphocytes # (Auto) 0.95 K/uL Monocytes # (Auto) 0.98 K/uL Eosinophils # (Auto) 0.00 K/uL Basophils # (Auto) 0.01 K/uL RDW Standard Deviation 48.4 fL RDW Coefficient of Variation 14.8 % Immature Granulocyte % (Auto) 2.5 % Immature Granulocyte # (Auto) 0.49 K/uL Prothrombin Time 43.9 SECONDS Prothromb Time International Ratio 4.3 Arterial Blood pH 7.44 Arterial Blood Partial Pressure CO2 37 mmHg Arterial Blood Partial Pressure O2 72 mm/Hg Arterial Blood HCO3 25 mmol/L Arterial Blood Oxygen Saturation 93.4 % Arterial Blood Base Excess 0.7 mEq/L Arterial Blood Gas Delivery 5L [place]ana Test POS Sodium Level 141 mmol/L Potassium Level 3.8 mmol/L Chloride Level 109 mmol/L Carbon Dioxide Level 24 mmol/L Anion Gap 8.0 mmol/L Blood Urea Nitrogen 35 mg/dl Creatinine 1.75 mg/dl Est Creatinine Clear Calc Drug Dose 33.3 ml/min Estimated GFR () 40.0 Estimated GFR (Non- 34.5 BUN/Creatinine Ratio 19.8 Random Glucose 97 mg/dl Calcium Level 7.5 mg/dl Magnesium Level 2.0 mg/dl Albumin 2.0 gm/dl Test 12/24/17 02:55 12/24/17 07:35 12/24/17 11:33 12/24/17 16:44 Bedside Glucose 93 mg/dl 119 mg/dl 215 mg/dl 161 mg/dl Assessment & Plan PNEUMONIA Community acquired pneumonia CXR showed subtle left basal airspace opacity suspicious for a pneumonia Repeat CXR showed Progression of bilateral airspace opacities which favors multifocal pneumonia. sputum cx positive for staph aureus (MSSA) Was starting on Zosyn then changed On Ceftriaxone and Doxycycline Pulmonary on board Continue PT vibration and Neb treatment mucinex adding Repeat CXR in am 12/24 Simproves clinically CXR showed slight progression of the patient's bilateral parenchymal infiltrative change. Continue doxycycline Continue prednisone Pulmonary on board Will get a 2 step in am ACUTE HYPOXEMIC RESPIRATORY FAILURE Secondary to pneumonia Influenza positive Since symptoms has been going on for more than 1 week, No Tamiflu starting clinically improved HYPERGLYCEMIA WITH TYPE 2 DM Pharmacy on board for glycemic management Recent Hb A1c 10.4 Continue insulin Will monitor BS OKSANA ON CKD STAGE 3 Possible related to acute illness/dehydration Creatine in the past year baseline 1.8 to 1.9 creatine 1.75 Received IVF Stable ELEVATED WBC Mostly related to steroid continue monitor HYPONATREMIA Due to hyperglycemia Stable HX OF A FLUTTER : Rate and rhythm controlled Cont amiodarone Coumadin on hold INR 4.3 today FULL CODE DVT px hold Coumadin INR 4.3 DISPOSITION ; PT/OT prior to discharge medicine follow up with Dr Ward Current Inpatient Medications: Current Inpatient Medications Medications (Trade) Dose Ordered Sig/Krystal Route Start Time Stop Time Status Last Admin Dose Admin Miscellaneous Information (Consult Glycemic Management Pharmacy) 1 ea UD PRN N/A 12/15/17 18:01 01/14/18 18:00 Acetaminophen (Tylenol Tab) 650 mg Q4H PRN PO 12/15/17 17:15 01/14/18 17:14 12/18/17 05:52 650 MG Al Hydrox/Mg Hydrox/Simethicone (Maalox Max Susp) 15 ml Q4H PRN PO 12/15/17 17:15 01/14/18 17:14 Magnesium Hydroxide (Milk Of Magnesia Susp) 30 ml Q12H PRN PO 12/15/17 17:15 01/14/18 17:14 Ondansetron HCl (Zofran Inj) 4 mg Q6H PRN IV 12/15/17 17:15 01/14/18 17:14 Polyethylene (Miralax Powder Packet) 17 gm DAILY PRN PO 12/15/17 17:15 01/14/18 17:14 Amiodarone HCl (Cordarone Tab) 200 mg DAILY PO 12/16/17 09:00 01/15/18 08:59 12/24/17 08:38 200 MG Tamsulosin HCl (Flomax Cap) 0.4 mg DAILY PO 12/16/17 09:00 01/15/18 08:59 12/24/17 08:38 0.4 MG Cholecalciferol (Vitamin D Tab) 2,000 inter.unit DAILY PO 12/16/17 09:00 01/15/18 08:59 12/24/17 08:38 2,000 INTER.UNIT Pantoprazole Sodium (Protonix Tab) 40 mg QAM PO 12/16/17 09:00 01/15/18 08:59 12/24/17 08:38 40 MG Ipratropium [place] (Atrovent 0.02% 0.5MG/2.5ML Neb) 0.5 mg Q2H PRN INH 12/15/17 21:15 01/14/18 21:14 Levalbuterol (Xopenex 1.25MG/ 0.5ML Neb) 1.25 mg Q2H PRN INH 12/15/17 21:15 01/14/18 21:14 Insulin Aspart (novoLOG ASPART) SLIDING SCALE ACHS SC 12/16/17 21:00 01/15/18 20:59 12/24/17 17:03 2 UNITS Hydrocodone Bit/ Homatropine Methylb (Hycodan Syrup) 5 ml Q6H PRN PO 12/17/17 08:00 12/31/17 07:59 12/18/17 16:45 5 ML Magnesium Chloride (Slow-Mag Tab) 128 mg DAILY PO 12/17/17 10:45 01/16/18 10:44 12/24/17 08:38 128 MG Warfarin Sodium (Coumadin Tab) 3 mg DAILY@1600 PO 12/21/17 16:00 01/19/18 15:59 Future Hold 12/21/17 15:54 3 MG Guaifenesin (Mucinex Contr Rel Tab) 600 mg Q12 PO 12/21/17 21:00 01/20/18 20:59 12/24/17 08:38 600 MG Insulin Human NPH (novoLIN-N NPH) 30 units QAM SC 12/22/17 09:00 01/21/18 08:59 Future hold 12/24/17 08:41 30 UNITS Doxycycline Hyclate (Vibramycin Cap) 100 mg BID PO 12/22/17 21:00 12/25/17 08:59 12/24/17 08:38 100 MG Ipratropium [place] (Atrovent 0.02% 0.5MG/2.5ML Neb) 0.5 mg Q4RWA INH 12/22/17 12:00 01/15/18 02:59 12/24/17 19:01 0.5 MG Levalbuterol (Xopenex 1.25MG/ 0.5ML Neb) 1.25 mg Q4RWA INH 12/22/17 12:00 01/15/18 02:59 12/24/17 19:01 1.25 MG Prednisone (PredniSONE TAB) 40 mg DAILY PO 12/25/17 09:00 01/21/18 08:59 Insulin Glargine (Lantus Solostar Pen) 10 units QAM SC 12/24/17 09:00 01/23/18 08:59 12/24/17 09:51 10 UNITS
[2017-12-25] VITALS (10 sets, daily range): BP systolic 134–158; BP diastolic 64–77; PULSE 65–85; TEMP 36.4–37; O2SAT 90–96
[2017-12-25] MEDS: INSULIN ASPART 100 UNITS/ML 3 ML PEN SC SCH ×4 (06:30→20:15)
[2017-12-25] MEDS: LEVALBUTEROL 1.25MG/0.5ML NEB INH SCH ×4 (07:06→19:19)
[2017-12-25] MEDS: IPRATROPIUM BROMIDE NEB SOLN 0.02% 2.5 ML VIAL INH SCH ×4 (07:06→19:19)
[2017-12-25 08:40] LABS: INR 1.5 (0.9-1.1)
[2017-12-25] MEDS: PANTOprazole SOD 40 MG TAB PO SCH (08:52)
[2017-12-25] MEDS: GUAIFENESIN 600 MG TABCR PO SCH ×2 (08:52→20:16)
[2017-12-25] MEDS: MAGNESIUM CHLORIDE 64MG DELAYED REL TAB PO SCH (08:52)
[2017-12-25] MEDS: AMIODARONE 200 MG TAB PO SCH (08:52)
[2017-12-25] MEDS: CHOLECALCIFEROL 1000 INTER.UNIT TAB PO SCH (08:52)
[2017-12-25] MEDS: TAMSULOSIN HCL 0.4 MG CAP PO SCH (08:53)
[2017-12-25 09:00] LABS: CALCIUM 8.2 mg/dl (8.5-10.1); CREATININE 1.76 mg/dl (0.60-1.40)
[2017-12-25] MEDS ORDERED: INSULIN HUMAN NPH SC SCH (09:00)
--- NOTE | 2017-12-25 15:17 | Progress Note ---
Medicine Progress Note Date & Time of Visit: Dec 25, 2017 at 15:09. Subjective Pt was seen and examined Lying in bed with no distress Pt said that he is tired He said that he was up all night last night urinated Pt said that he continues to have SOB with minimal exertion He said that he had SOB this morning while cleaning himself in the bathroom Denies any chest pain, palpitation and fever Objective Last 8 Hrs Date Time Temp Pulse Resp B/P (MAP) Pulse Ox O2 Delivery O2 Flow Rate FiO2 12/25/17 14:49 78 16 93 Nasal Cannula 3.0 12/25/17 11:35 37.0 67 20 154/76 (102) 96 Nasal Cannula 4.0 12/25/17 11:15 65 16 95 Nasal Cannula 4.0 12/25/17 07:50 36.9 68 18 143/77 (99) 91 Nasal Cannula 4.0 Physical Exam: General- No acute distress Head- atraumatic Eyes- PERRL, EOMI ENT- oropharynx clear Neck- supple, no JVD Lungs- +Decrease BS Heart- regular rhythm Abdomen- normal bowel sounds Extremities- +edema Neuro- alert, oriented x 3; PERRL, EOMI Skin- warm & dry Laboratory Results: Last 24 Hours Test 12/24/17 16:44 12/24/17 20:17 12/25/17 07:34 12/25/17 08:02 Bedside Glucose 161 mg/dl 179 mg/dl 72 mg/dl Prothrombin Time 15.4 SECONDS Prothromb Time International Ratio 1.5 Sodium Level 142 mmol/L Potassium Level mmol/L Chloride Level 106 mmol/L Carbon Dioxide Level 31 mmol/L Anion Gap 5.0 mmol/L Blood Urea Nitrogen 33 mg/dl Creatinine 1.76 mg/dl Est Creatinine Clear Calc Drug Dose 33.1 ml/min Estimated GFR () 39.7 Estimated GFR (Non- 34.3 BUN/Creatinine Ratio 18.7 Random Glucose 59 mg/dl Calcium Level 8.2 mg/dl Test 12/25/17 10:07 12/25/17 11:44 Potassium Level 4.0 mmol/L Chemistry Specimen Hemolysis Bedside Glucose 77 mg/dl Assessment & Plan PNEUMONIA Community acquired pneumonia CXR showed subtle left basal airspace opacity suspicious for a pneumonia Repeat CXR showed Progression of bilateral airspace opacities which favors multifocal pneumonia. sputum cx positive for staph aureus (MSSA) Was starting on Zosyn then changed On Ceftriaxone and Doxycycline Pulmonary on board Continue PT vibration and Neb treatment mucinex adding Repeat CXR in am 12/25 Continue to have SOB Continue required oxygen supplement CXR yesterday showed slight progression of the patient's bilateral parenchymal infiltrative change. Continue doxycycline Continue prednisone Pulmonary on board Since SOB does not improve, will get an echo in am ACUTE HYPOXEMIC RESPIRATORY FAILURE Secondary to pneumonia Influenza positive Since symptoms has been going on for more than 1 week, No Tamiflu starting Continue having SOB on exertion HYPERGLYCEMIA WITH TYPE 2 DM Pharmacy on board for glycemic management Recent Hb A1c 10.4 Continue insulin Will monitor BS OKSANA ON CKD STAGE 3 Possible related to acute illness/dehydration Creatine in the past year baseline 1.8 to 1.9 creatine 1.76 Received IVF Stable ELEVATED WBC Mostly related to steroid continue monitor HYPONATREMIA Due to hyperglycemia Stable HX OF A FLUTTER : Rate and rhythm controlled Cont amiodarone Resume coumadin today INR 1.5 today FULL CODE DVT px resume Coumadin INR 1.5 DISPOSITION ; PT/OT prior to discharge medicine follow up with Dr Ward Current Inpatient Medications: Current Inpatient Medications Medications (Trade) Dose Ordered Sig/Krystal Route Start Time Stop Time Status Last Admin Dose Admin Miscellaneous Information (Consult Glycemic Management Pharmacy) 1 ea UD PRN N/A 12/15/17 18:01 01/14/18 18:00 Acetaminophen (Tylenol Tab) 650 mg Q4H PRN PO 12/15/17 17:15 01/14/18 17:14 12/18/17 05:52 650 MG Al Hydrox/Mg Hydrox/Simethicone (Maalox Max Susp) 15 ml Q4H PRN PO 12/15/17 17:15 01/14/18 17:14 Magnesium Hydroxide (Milk Of Magnesia Susp) 30 ml Q12H PRN PO 12/15/17 17:15 01/14/18 17:14 Ondansetron HCl (Zofran Inj) 4 mg Q6H PRN IV 12/15/17 17:15 01/14/18 17:14 Polyethylene (Miralax Powder Packet) 17 gm DAILY PRN PO 12/15/17 17:15 01/14/18 17:14 Amiodarone HCl (Cordarone Tab) 200 mg DAILY PO 12/16/17 09:00 01/15/18 08:59 12/25/17 08:52 200 MG Tamsulosin HCl (Flomax Cap) 0.4 mg DAILY PO 12/16/17 09:00 01/15/18 08:59 12/25/17 08:53 0.4 MG Cholecalciferol (Vitamin D Tab) 2,000 inter.unit DAILY PO 12/16/17 09:00 01/15/18 08:59 12/25/17 08:52 2,000 INTER.UNIT Pantoprazole Sodium (Protonix Tab) 40 mg QAM PO 12/16/17 09:00 01/15/18 08:59 12/25/17 08:52 40 MG Ipratropium [place] (Atrovent 0.02% 0.5MG/2.5ML Neb) 0.5 mg Q2H PRN INH 12/15/17 21:15 01/14/18 21:14 Levalbuterol (Xopenex 1.25MG/ 0.5ML Neb) 1.25 mg Q2H PRN INH 12/15/17 21:15 01/14/18 21:14 Insulin Aspart (novoLOG ASPART) SLIDING SCALE ACHS SC 12/16/17 21:00 01/15/18 20:59 12/24/17 21:18 3 UNITS Hydrocodone Bit/ Homatropine Methylb (Hycodan Syrup) 5 ml Q6H PRN PO 12/17/17 08:00 12/31/17 07:59 12/18/17 16:45 5 ML Magnesium Chloride (Slow-Mag Tab) 128 mg DAILY PO 12/17/17 10:45 01/16/18 10:44 12/25/17 08:52 128 MG Warfarin Sodium (Coumadin Tab) 3 mg DAILY@1600 PO 12/21/17 16:00 01/19/18 15:59 Future Hold 12/21/17 15:54 3 MG Guaifenesin (Mucinex Contr Rel Tab) 600 mg Q12 PO 12/21/17 21:00 01/20/18 20:59 12/25/17 08:52 600 MG Ipratropium [place] (Atrovent 0.02% 0.5MG/2.5ML Neb) 0.5 mg Q4RWA INH 12/22/17 12:00 01/15/18 02:59 12/25/17 14:49 0.5 MG Levalbuterol (Xopenex 1.25MG/ 0.5ML Neb) 1.25 mg Q4RWA INH 12/22/17 12:00 01/15/18 02:59 12/25/17 14:49 1.25 MG Prednisone (PredniSONE TAB) 40 mg DAILY PO 12/25/17 09:00 01/21/18 08:59 12/25/17 08:53 40 MG Insulin Human NPH (novoLIN-N NPH) 40 units QAM SC 12/25/17 09:00 01/24/18 08:59 12/25/17 08:56 40 UNITS
--- NOTE | 2017-12-25 15:22 | PULMONARY PROGRESS NOTE ---
DATE: 12/25/2017 TIME: 2:55 p.m. SUBJECTIVE: The patient indicates he feels okay. He did not sleep well last night. He had marked difficulty with urinary frequency. He does have a history of BPH and he takes Flomax. He states he was just dribbling a little better that time. This was much worse than it usually is. He is not complaining significantly of his breathing. He states his cough is minimal. He had numerous family members present during this evaluation. PHYSICAL EXAMINATION: GENERAL: The patient appears tired. This is a little unusual for him. VITAL SIGNS: Temperature is 37. GENERAL: He has had no fevers. HEART: Heart rate was 67 per minute. Blood pressure 154/76. LUNGS: Lung mohr revealed rales bilaterally. He did not appear labored. Respiratory rate was 20. Saturation was 96% on 4 liters. ABDOMEN: Soft. It was nontender. EXTREMITIES: Showed some mild edema of the feet. LABORATORY DATA: INR today is only 1.5. He has not gotten any Coumadin for a few days because it had been prolonged. The nurse is going to contact the hospitalist team about being sure he gets his Coumadin. Electrolytes today showed sodium 142, potassium 4, chloride 106, bicarbonate 31. The BUN was 33 with a creatinine of 1.76. This is very similar to what it was yesterday. Blood sugar this morning was low at 59. RECOMMENDATIONS: The patient told me that he was going to get a CAT scan tomorrow. I do not currently see an order for that. I think I would hold off and do a plain x-ray tomorrow to see if that is better. He did diurese very well yesterday after getting some Lasix with a total of 3400 mL. However, his BUN and creatinine are abnormal as noted. We would suggest holding on the CAT scan, but will consider it if tomorrow's x-ray is no better. As noted in the prior pulmonary note of Uriel Feng PA-C, the patient has been on amiodarone for quite some time. With his lack of improvement, one needs to consider the possibility of amiodarone toxicity. However, we are faced with what clearly seem to be an acute influenza A and an associated pneumonia with methicillin-sensitive Staph aureus. Thus, we certainly can rationalize the infiltrates. We are just pondering why they have not cleared as one would expect.
--- NOTE | 2017-12-25 15:41 | Pharmacy Progress Note ---
Pharmacy Glycemic Short Note 2 Date of Service Dec 25, 2017. OUTPATIENT ANTIDIABETIC REGIMEN: * Lantus 22 units SQ daily * HbA1c: 10.4% (12/15/17) ASSESSMENT: * See progress note from 12/20/17 for background info, in short: * Continuing to titrate SQ basal/bolus insulin regimen in the setting of uncontrolled diabetes and steroid induced hyperglycemia * Steroids transitioned from Solu-medrol IV to Prednisone PO on 12/22. NPH was added to regimen to cover hyperglycemic effect of prednisone. * Patient has been receiving ~ 50 units of insulin per day with adequate control , but BSGs are on the lower side * 10 units of basal insulin with Lantus * 40units of prandial/correctional insulin with NPH + NovoLog * 31 units of prandial insulin BSGs over the past 24 hours: * 12/24/17: 39, 69, 93, 119, 215, 161, 179 * 12/25/17: 72, 77 * Changes needed to regimen: * AM fasting BSG remains on the low side of range. Will d/c Lantus * Prandial BSGs are at goal but may increase without Lantus on board. Will increase NPH slightly for prednisone. PLAN FOR INPATIENT GLYCEMIC CONTROL: * Basal insulin - decrease * STOP Lantus * NPH - while on prednisone, 40 units SQ qQM (~0.4 unit/kg) * Bolus insulin * Novolog ACHS while diet ordered and Q6 when NPO * Correction Factor: 15 mg/dL/unit * NO carbohydrate ratio... NPH is serving this purpose * Goal range: 110-140 mg/dL PLAN FOR DISCHARGE: * Current A1c (10.4%) indicates sub-optimal glycemic control as an outpatient. * CDE spoke with patient this admission and it seems that he is compliant with his Lantus. * Consider adding prandial coverage or increasing Lantus on discharge (although , patient reports reasonable fasting BSGs). * Recommend f/u with PCP for DM management after discharge to optimize A1c. * Recommend increase in SMBG after discharge until BSGs improve.
[2017-12-25] MEDS: WARFARIN SOD 3 MG TAB PO SCH (16:57)
[2017-12-26] VITALS (10 sets, daily range): BP systolic 130–153; BP diastolic 53–77; PULSE 62–75; TEMP 36.3–37; O2SAT 92–99
[2017-12-26] MEDS ORDERED: NURSING VERBAL MED ORDER ONE (01:15)
[2017-12-26] MEDS ORDERED: MICONAZOLE NITRATE POWDER 43 GM EXT PRN (03:30)
[2017-12-26] MEDS: IPRATROPIUM BROMIDE NEB SOLN 0.02% 2.5 ML VIAL INH SCH ×4 (07:10→18:56)
[2017-12-26] MEDS: LEVALBUTEROL 1.25MG/0.5ML NEB INH SCH ×4 (07:10→18:56)
[2017-12-26 07:35] LABS: HEMATOCRIT 38.6 % (42-52); HEMOGLOBIN 12.5 g/dL (14.0-18.0); MEAN CELL VOLUME 92.1 fL (80-100); MEAN CORPUSCULAR HEMOGLOBIN 29.8 pg (25-34); MEAN CORPUSCULAR HGB CONC 32.4 g/dl (32-36); MEAN PLATELET VOLUME 8.7 fL (7.4-10.4); PLATELET COUNT 200 K/uL (130-400); RED CELL DISTRIBUTION WIDTH CV 14.9 % (11.5-14.5); RED CELL DISTRIBUTION WIDTH SD 49.7 fL (36.4-46.3); WHITE BLOOD COUNT 18.61 K/uL (4.8-10.8)
[2017-12-26 07:47] LABS: INR 1.3 (0.9-1.1)
[2017-12-26 08:09] LABS: CREATININE 1.68 mg/dl (0.60-1.40); POTASSIUM 3.7 mmol/L (3.5-5.1)
[2017-12-26] MEDS ORDERED: INSULIN HUMAN NPH SC SCH (09:00)
[2017-12-26] MEDS ORDERED: INSULIN GLARGINE SOLOSTAR 100 UNITS/ML 3 ML PEN SC SCH (09:00)
[2017-12-26] MEDS ORDERED: PERFLUTREN LIPID MICROSPHERE (DEFINITY) IV ONE (09:00)
[2017-12-26] MEDS: CHOLECALCIFEROL 1000 INTER.UNIT TAB PO SCH (09:16)
[2017-12-26] MEDS: MAGNESIUM CHLORIDE 64MG DELAYED REL TAB PO SCH (09:16)
[2017-12-26] MEDS: AMIODARONE 200 MG TAB PO SCH (09:16)
[2017-12-26] MEDS: PANTOprazole SOD 40 MG TAB PO SCH (09:16)
[2017-12-26] MEDS: GUAIFENESIN 600 MG TABCR PO SCH ×2 (09:16→21:08)
[2017-12-26] MEDS: TAMSULOSIN HCL 0.4 MG CAP PO SCH ×2 (09:17→21:08)
[2017-12-26] MEDS: INSULIN ASPART 100 UNITS/ML 3 ML PEN SC SCH ×4 (09:24→21:10)
[2017-12-26] MEDS ORDERED: FUROSEMIDE INJ 20 MG in SYRINGE 0 ML IV ONE (09:30)
--- NOTE | 2017-12-26 10:33 | DIAGNOSTIC IMAGING REPORT ---
TWO VIEW CHEST CLINICAL HISTORY: Follow-up pneumonia. FINDINGS: Frontal and lateral chest radiographs are compared to study dated 12/24/2017. The cardiomediastinal silhouette is unremarkable. Patchy airspace consolidation the right upper lung and at the left lung base is similar to previous. Patchy airspace opacities are also seen at the right lung base. Small pleural effusions are identified. No pneumothorax is seen. The skeletal structures are osteopenic. The bony thorax is grossly intact. Degenerative change is seen throughout the thoracic spine. IMPRESSION: 1. Multifocal patchy airspace consolidation has not significantly changed from 12/24/2017. 2. Small pleural effusions. Electronically signed by: Jonatan Duval M.D. 12/26/2017 10:31 AM Dictated Date/Time: 12/26/2017 10:30 AM
--- NOTE | 2017-12-26 15:08 | Pharmacy Progress Note ---
Pharmacy Glycemic Short Note 2 Date of Service Dec 26, 2017. OUTPATIENT ANTIDIABETIC REGIMEN: * Lantus 22 units SQ daily * HbA1c: 10.4% (12/15/17) ASSESSMENT: * See progress note from 12/20/17 for background info, in short: * Continuing to titrate SQ basal/bolus insulin regimen in the setting of uncontrolled diabetes and steroid induced hyperglycemia * Steroids transitioned from Solu-medrol IV to Prednisone PO on 12/22. NPH was added to regimen to cover hyperglycemic effect of prednisone. * Patient has been receiving ~ 50 units of insulin per day with adequate control , but BSGs are on the lower side * 40 units of basal insulin with NPH (also covering post-prandial hyperglycemia from prednisone) * ~10 units of prandial/correctional insulin with NovoLog BSGs over the past 24 hours: * 12/24/17: 39, 69, 93, 119, 215, 161, 179 * 12/25/17: 72, 77, 98, 249 * 12/26/17: 168, 146 * Changes needed to regimen: * AM fasting BSG trending upwards without Lantus. Lantus was stopped yesterday secondary to hypo on 12/24. * Prandial BSGs trend upwards throughout the day, especially at HS. NPH likely not lasting 12-18hrs in patient. Will resume Lantus for full 24hr coverage. PLAN FOR INPATIENT GLYCEMIC CONTROL: * Basal insulin - * Restart Lantus 10 units SQ daily in AM * NPH - while on prednisone, 35 units SQ qAM (~0.4 unit/kg) * Bolus insulin * Novolog ACHS while diet ordered and Q6 when NPO * Correction Factor: 15 mg/dL/unit * NO carbohydrate ratio... NPH is serving this purpose * Goal range: 110-140 mg/dL PLAN FOR DISCHARGE: * Current A1c (10.4%) indicates sub-optimal glycemic control as an outpatient. * CDE spoke with patient this admission and it seems that he is compliant with his Lantus. * Consider adding prandial coverage or increasing Lantus on discharge (although , patient reports reasonable fasting BSGs). * Recommend f/u with PCP for DM management after discharge to optimize A1c. * Recommend increase in SMBG after discharge until BSGs improve.
--- NOTE | 2017-12-26 15:25 | PULMONARY PROGRESS NOTE ---
DATE: 12/26/2017 TIME: 2:35 p.m. SUBJECTIVE: The patient is not feeling well. His complaints are mainly those regarding his urination. He is having marked difficulty voiding. He is going frequently and just small amounts. A bladder scan is pending on him. He is still coughing. He states he coughed up some phlegm overnight. He did not know the color. Nursing feels he has been more short of breath with any exertion. His oxygen saturations have been up and down. He has been as high as 10 liters on the OxyMask. OBJECTIVE: GENERAL: The patient looked generally uncomfortable, but not necessarily short of breath at rest. VITAL SIGNS: Temperature is 36.4. GENERAL: He has not had any significant fever for at least 5 days. Early on in his hospital stay, he did have fevers. HEART: Rate was 64. The rhythm is regular. Blood pressure 137/73. LUNGS: Auscultation of the lung mohr reveals moderate rhonchi bilaterally. They are more prominent than what was heard yesterday. ABDOMEN: Seems reasonably soft. He did feel discomfort with the urge to have to void when I would touch the lower abdominal region and thus I did not do so to any extent because the bladder scan is pending. EXTREMITIES: He has lower extremity and foot and ankle edema as prior. DIAGNOSTIC DATA: Chest x-ray today shows essentially no change in the patchy airspace consolidation in the right upper lung field and left lower lung field. These are similar to the prior x-ray done 2 days earlier. LABORATORY DATA: White count today is 18.61, hemoglobin 12.5, platelets 200,000. INR today is only 1.3. Electrolytes show sodium 142, potassium 3.7, chloride 107, bicarbonate 28. BUN is 34 with a creatinine of 1.68. Prior creatinine yesterday was 1.76. IMPRESSION: 1. Bilateral pneumonia -- Methicillin-sensitive Staphylococcus aureus cultured. 2. Acute influenza A. 3. Leukocytosis. 4. Hypoxia. COMMENTS: The patient seems to be doing worse. At the start of his hospital stay, he was febrile. The fevers resolved. Clinically, he was getting better until about 48 hours ago. Since then he has been doing worse, requiring more oxygen. Case discussed with Dr. Toussaint. He had a short course of Zosyn early on of just 2 days. We will restart the Zosyn. We will obtain a CAT scan of the chest without contrast. We are awaiting the results of the echocardiogram. As noted previously, the suspicions have been that this is an infectious process. However, the patient has been on amiodarone. We may need to consider whether stopping that would be of benefit. A cardiac opinion might be necessary to do that, however. The patient is having difficulty voiding. He does see Dr. Box as an outpatient. If his symptoms progress, he may need a urology consult with Dr. Box.
--- NOTE | 2017-12-26 15:50 | Progress Note ---
Medicine Progress Note Date & Time of Visit: Dec 26, 2017 at 15:33. Subjective Pt was seen and examined Lying in bed with mild respiratory distress Pt said that his breathing seems to get worst He was in 10L oxygen this morning Pt said that breathing seems to get worst with minimal exertion He also said that he had the urge to urinate but able to urinate He has not been urinate much today Nurse just bladder scan him and straight cath him and collected about 750 ml urine. Denies any chest pain, palpitation and fever Objective Last 8 Hrs Date Time Temp Pulse Resp B/P (MAP) Pulse Ox O2 Delivery O2 Flow Rate FiO2 12/26/17 15:16 37.0 68 18 148/77 (100) 95 Oxymask 8.0 12/26/17 14:44 70 16 97 Mask 8.0 12/26/17 12:00 Oxymask 10.0 12/26/17 11:33 36.4 64 18 137/73 (94) 98 Nasal Cannula 4.0 12/26/17 11:22 75 16 94 Mask 10.0 12/26/17 08:00 Oxymask 10.0 Physical Exam: General- No acute distress Head- atraumatic Eyes- PERRL, EOMI ENT- oropharynx clear Neck- supple, no JVD Lungs- +Decrease BS Heart- regular rhythm Abdomen- normal bowel sounds Extremities- +edema Neuro- alert, oriented x 3; PERRL, EOMI Skin- warm & dry Laboratory Results: Last 24 Hours Test 12/25/17 16:32 12/25/17 20:05 12/26/17 07:13 12/26/17 07:49 Bedside Glucose 128 mg/dl 249 mg/dl 168 mg/dl White Blood Count 18.61 K/uL Red Blood Count 4.19 M/uL Hemoglobin 12.5 g/dL Hematocrit 38.6 % Mean Corpuscular Volume 92.1 fL Mean Corpuscular Hemoglobin 29.8 pg Mean Corpuscular Hemoglobin Concent 32.4 g/dl RDW Standard Deviation 49.7 fL RDW Coefficient of Variation 14.9 % Platelet Count 200 K/uL Mean Platelet Volume 8.7 fL Prothrombin Time 13.2 SECONDS Prothromb Time International Ratio 1.3 Sodium Level 142 mmol/L Potassium Level 3.7 mmol/L Chloride Level 107 mmol/L Carbon Dioxide Level 28 mmol/L Anion Gap 8.0 mmol/L Blood Urea Nitrogen 34 mg/dl Creatinine 1.68 mg/dl Est Creatinine Clear Calc Drug Dose 34.7 ml/min Estimated GFR () 42.0 Estimated GFR (Non- 36.2 BUN/Creatinine Ratio 19.9 Random Glucose 137 mg/dl Calcium Level 8.0 mg/dl Test 12/26/17 11:39 Bedside Glucose 146 mg/dl Assessment & Plan PNEUMONIA Community acquired pneumonia CXR showed subtle left basal airspace opacity suspicious for a pneumonia Repeat CXR showed Progression of bilateral airspace opacities which favors multifocal pneumonia. sputum cx positive for staph aureus (MSSA) Was starting on Zosyn then changed On Ceftriaxone and Doxycycline Pulmonary on board Continue PT vibration and Neb treatment mucinex adding Repeat CXR in am 12/26 SOB Worsening Not getting better Completed course of Abx Repeat CXR today Multifocal patchy airspace consolidation has not significantly changed from 12/24/2017. Continue required oxygen supplement Continue prednisone Pulmonary on board Case discussed with Dr. Dutta Will get a CT chest without contrast Will start on broad coverage antibiotic with Zosyn Also pt is on amiodarone, that might be amiodarone toxicity, will consider cardiology consult after CT chest result. Lasix given since pt has a positive I/O Echo pending ACUTE HYPOXEMIC RESPIRATORY FAILURE Secondary to pneumonia Influenza positive Since symptoms has been going on for more than 1 week, No Tamiflu starting Continue having SOB on exertion HYPERGLYCEMIA WITH TYPE 2 DM Pharmacy on board for glycemic management Recent Hb A1c 10.4 Continue insulin Will monitor BS [place] ON CKD STAGE 3 Possible related to acute illness/dehydration Creatine in the past year baseline 1.8 to 1.9 creatine 1.6 Received IVF Lasix givenx1 Stable ELEVATED WBC Mostly related to steroid continue monitor HYPONATREMIA Due to hyperglycemia Stable HX OF A FLUTTER : Rate and rhythm controlled Cont amiodarone Resume coumadin today INR 1.3 today FULL CODE DVT px resume Coumadin INR 1.3 DISPOSITION ; PT/OT prior to discharge medicine follow up with Dr Ward Current Inpatient Medications: Current Inpatient Medications Medications (Trade) Dose Ordered Sig/Krystal Route Start Time Stop Time Status Last Admin Dose Admin Miscellaneous Information (Consult Glycemic Management Pharmacy) 1 ea UD PRN N/A 12/15/17 18:01 01/14/18 18:00 Acetaminophen (Tylenol Tab) 650 mg Q4H PRN PO 12/15/17 17:15 01/14/18 17:14 12/18/17 05:52 650 MG Al Hydrox/Mg Hydrox/Simethicone (Maalox Max Susp) 15 ml Q4H PRN PO 12/15/17 17:15 01/14/18 17:14 Magnesium Hydroxide (Milk Of Magnesia Susp) 30 ml Q12H PRN PO 12/15/17 17:15 01/14/18 17:14 Ondansetron HCl (Zofran Inj) 4 mg Q6H PRN IV 12/15/17 17:15 01/14/18 17:14 Polyethylene (Miralax Powder Packet) 17 gm DAILY PRN PO 12/15/17 17:15 01/14/18 17:14 Amiodarone HCl (Cordarone Tab) 200 mg DAILY PO 12/16/17 09:00 01/15/18 08:59 12/26/17 09:16 200 MG Tamsulosin HCl (Flomax Cap) 0.4 mg DAILY PO 12/16/17 09:00 01/15/18 08:59 12/26/17 09:17 0.4 MG Cholecalciferol (Vitamin D Tab) 2,000 inter.unit DAILY PO 12/16/17 09:00 01/15/18 08:59 12/26/17 09:16 2,000 INTER.UNIT Pantoprazole Sodium (Protonix Tab) 40 mg QAM PO 12/16/17 09:00 01/15/18 08:59 12/26/17 09:16 40 MG Ipratropium [place] (Atrovent 0.02% 0.5MG/2.5ML Neb) 0.5 mg Q2H PRN INH 12/15/17 21:15 01/14/18 21:14 Levalbuterol (Xopenex 1.25MG/ 0.5ML Neb) 1.25 mg Q2H PRN INH 12/15/17 21:15 01/14/18 21:14 Insulin Aspart (novoLOG ASPART) SLIDING SCALE ACHS SC 12/16/17 21:00 01/15/18 20:59 12/26/17 12:17 1 UNITS Hydrocodone Bit/ Homatropine Methylb (Hycodan Syrup) 5 ml Q6H PRN PO 12/17/17 08:00 12/31/17 07:59 12/18/17 16:45 5 ML Magnesium Chloride (Slow-Mag Tab) 128 mg DAILY PO 12/17/17 10:45 01/16/18 10:44 12/26/17 09:16 128 MG Warfarin Sodium (Coumadin Tab) 3 mg DAILY@1600 PO 12/21/17 16:00 01/19/18 15:59 Future hold 12/25/17 16:57 3 MG Guaifenesin (Mucinex Contr Rel Tab) 600 mg Q12 PO 12/21/17 21:00 01/20/18 20:59 12/26/17 09:16 600 MG Ipratropium [place] (Atrovent 0.02% 0.5MG/2.5ML Neb) 0.5 mg Q4RWA INH 12/22/17 12:00 01/15/18 02:59 12/26/17 14:44 0.5 MG Levalbuterol (Xopenex 1.25MG/ 0.5ML Neb) 1.25 mg Q4RWA INH 12/22/17 12:00 01/15/18 02:59 12/26/17 14:44 1.25 MG Prednisone (PredniSONE TAB) 40 mg DAILY PO 12/25/17 09:00 01/21/18 08:59 12/26/17 09:16 40 MG Miconazole Nitrate (Desenex Powder) 1 appln PRN PRN EXT 12/26/17 03:30 01/25/18 03:29 Insulin Human NPH (novoLIN-N NPH) 35 units QAM SC 12/26/17 09:00 01/25/18 08:59 12/26/17 09:25 35 UNITS Insulin Glargine (Lantus Solostar Pen) 10 units QAM SC 12/26/17 09:00 01/25/18 08:59 12/26/17 09:25 10 UNITS
[2017-12-26] MEDS ORDERED: PIPERACILL/TAZOBAC CONSULT ACTIVE PRN (16:00)
[2017-12-26] MEDS ORDERED: PIPERACILL/TAZOBAC IV 3.375 GM in DEXTROSE 5% 100ML IV ONE (16:15)
--- NOTE | 2017-12-26 16:25 | ECHOCARDIOGRAM REPORT ---
*NOTICE TO RECEIVING [employer] This information is strictly Confidential and protected under [place] law. [place] law prohibits you from making any further disclosure of this information unless further disclosure is expressly permitted by the written consent of the person to whom it pertains or is authorized by law. A general authorization for the release of medical or other information is not sufficient for this purpose. Hospital accepts no responsibility if the information is made available to any other person, INCLUDING THE PATIENT. Interpretation Summary * Name: JASMIN SUÁREZ Study Date: 12/26/2017 08:19 AM BP: 153/71 mmHg * Patient Location: .[facility]\S\N275\S\2 HR: 67 * : 1930 (M/d/yyyy) Gender: Male Height: 72 in * Age: 87 yrs Ethnicity: [place] Weight: 192 lb * Ordering Physician: James Toussaint * Referring Physician: Self, Referred * Performed By: Marlene Rangel RDCS * * Reason For Study: Dyspnea * BSA: 2.1 m2 * -- Conclusions -- * This is a technically limited study. * Normal left and right ventricular size and systolic function. * The estimated left ventricular ejection fraction is 65-70%. * Normal size left and right atrium. * Grossly normal valves. Procedure Details * A complete two-dimensional transthoracic echocardiogram was performed (2D, M-mode, Doppler and color flow Doppler). * A contrast injection of Definity was performed to improve assessment of LV function. * Contrast was injected into an intravenous site in the right arm. * One vial of Definity ultrasound contrast was diluted in normal saline to a total volume of 10 ml. A total of '2' ml of solution was administered during imaging. * Lot # [id number] of Definity utilized for procedure. * Expiration date 1 DEC 13. * The attending nurse who injected the contrast agent was Renata Cortez RN. Left Ventricle * The left ventricle is grossly normal size. * Ejection Fraction = 65-70%. * The left ventricular ejection fraction is grossly normal. Right Ventricle * The right ventricle is grossly normal size. * The right ventricular systolic function is normal. Atria * The left atrial size is normal. * Right atrial size is normal. Mitral Valve * The mitral valve anatomy is normal. * Significant mitral regurgitation is absent. Tricuspid Valve * The tricuspid valve anatomy is normal. * Significant tricuspid regurgitation is absent. Aortic Valve * The aortic valve is not well visualized. * No hemodynamically significant valvular aortic stenosis. * There is no significant aortic regurgitation. MMode 2D Measurements and Calculations IVSd 0.76 cm LVIDd 3.7 cm LVIDs 2.3 cm LVPWd 0.76 cm IVS/LVPW 1.0 FS 38.0 % EDV(Teich) 59.4 ml ESV(Teich) 18.4 ml EF(Teich) 69.0 % EDV(cubed) 52.0 ml ESV(cubed) 12.4 ml EF(cubed) 76.1 % LV mass(C)d 77.8 grams LV mass(C)dI 37.1 grams/m\S\2 SV(Teich) 40.9 ml SI(Teich) 19.6 ml/m\S\2 SV(cubed) 39.6 ml SI(cubed) 18.9 ml/m\S\2 Ao root diam 3.6 cm Ao root area 10.3 cm\S\2 asc Aorta Diam 2.9 cm LVOT diam 2.0 cm LVOT area 3.2 cm\S\2 LVAd ap4 30.3 cm\S\2 LVLd ap4 9.0 cm EDV(MOD-sp4) 83.8 ml EDV(sp4-el) 86.9 ml LVAs ap4 15.4 cm\S\2 LVLs ap4 7.1 cm ESV(MOD-sp4) 28.1 ml ESV(sp4-el) 28.5 ml EF(MOD-sp4) 66.5 % EF(sp4-el) 67.2 % LVAd ap2 26.1 cm\S\2 LVLd ap2 7.2 cm EDV(MOD-sp2) 76.5 ml EDV(sp2-el) 80.0 ml LVAs ap2 14.1 cm\S\2 LVLs ap2 6.7 cm ESV(MOD-sp2) 24.9 ml ESV(sp2-el) 25.4 ml EF(MOD-sp2) 67.5 % EF(sp2-el) 68.2 % LVLd %diff -23.79 % EDV(MOD-bp) 86.6 ml LVLs %diff -6.10 % ESV(MOD-bp) 27.1 ml EF(MOD-bp) 68.7 % SV(MOD-sp4) 55.8 ml SI(MOD-sp4) 26.6 ml/m\S\2 SV(MOD-sp2) 51.7 ml SI(MOD-sp2) 24.7 ml/m\S\2 SV(MOD-bp) 59.5 ml SI(MOD-bp) 28.4 ml/m\S\2 SV(sp4-el) 58.4 ml SI(sp4-el) 27.9 ml/m\S\2 SV(sp2-el) 54.6 ml SI(sp2-el) 26.1 ml/m\S\2 Doppler Measurements and Calculations MV E max ana 68.4 cm/sec MV A max ana 81.5 cm/sec MV E/A 0.84 MV dec time 0.42 sec Ao V2 max 130.3 cm/sec Ao max PG 6.8 mmHg Ao max PG (full) 3.5 mmHg STEPHANIE(V,A) 2.2 cm\S\2 STEPHANIE(V,D) 2.2 cm\S\2 LV V1 max PG 3.3 mmHg LV V1 max 90.7 cm/sec
--- NOTE | 2017-12-26 16:27 | DIAGNOSTIC IMAGING REPORT ---
CT SCAN OF THE CHEST WITHOUT IV CONTRAST CLINICAL HISTORY: Pneumonia. COMPARISON STUDY: Chest x-ray dated 12/26/2017. TECHNIQUE: CT scan of the thorax was performed from the thoracic inlet to the upper abdomen. Images are reviewed in the axial, sagittal, and coronal planes. IV contrast was not administered for this examination as per the referring clinician. A dose lowering technique was utilized adhering to the principles of ALARA. The examination is modestly compromised by motion artifact. CT DOSE: 276.97 mGy.cm FINDINGS: Thyroid: Imaged portions of the thyroid gland are normal in size and attenuation. Thoracic aorta: There is mild atherosclerotic calcification of the thoracic aorta, which is normal in caliber and demonstrates standard 3-vessel arch anatomy. Heart: The heart is enlarged and without pericardial effusion. The coronary arteries are densely calcified. There is diminished attenuation of the cardiac blood pool as compared to the myocardium suggesting anemia. The main pulmonary arteries appear enlarged suggesting pulmonary artery hypertension. Lungs and pleural spaces: Mild emphysematous change is identified. There are small bilateral pleural effusions. Patchy groundglass consolidation is seen throughout both lungs, most confluent in the right upper lobe, as well as in the left lower lobe and lingula. Milder consolidative change is present at the right lung base. Diffuse subpleural reticulation is identified. The trachea and central airways are clear. Mediastinum: There are prominent mediastinal lymph nodes. A precarinal node on image #132 measures 9 mm in short axis. Danya: Not well assessed without IV contrast. Axillae: There is no axillary lymphadenopathy. Upper abdomen: A small hiatal hernia is identified There is a large nonobstructing calculus in the upper pole of left kidney. The partially imaged kidneys demonstrate cortical atrophy. Calcified gallstones are observed. A 1.4 cm adenoma is identified in the left adrenal gland. Skeletal structures: The skeletal structures are osteopenic. Degenerative change is seen throughout the thoracic spine and in the shoulders. No lytic or blastic bony lesions are seen. IMPRESSION: 1. There is multifocal groundglass consolidation as detailed above. The appearance is typical for an infectious/inflammatory pneumonitis. Clinical correlation will be required and radiographic follow-up to resolution is recommended. 2. Small pleural effusions. 3. Cardiomegaly and mild emphysema. 4. Cholelithiasis and nonobstructing left-sided nephrolithiasis. 5. Prominent mediastinal lymph nodes are likely on a reactive basis. 6. Additional findings as above. Electronically signed by: Jonatan Duval M.D. 12/26/2017 4:25 PM Dictated Date/Time: 12/26/2017 4:19 PM
[2017-12-26] MEDS: WARFARIN SOD 3 MG TAB PO SCH (16:50)
[2017-12-26] MEDS ORDERED: FINASTERIDE 5 MG TAB PO ONE (21:00)
[2017-12-26] MEDS: PIPERACILL/TAZOBAC IV 3.375 GM in DEXTROSE 5% 100ML 100 ML IV SCH (21:08)
[2017-12-27] VITALS (11 sets, daily range): BP systolic 94–161; BP diastolic 53–76; PULSE 59–73; TEMP 36.3–37.4; O2SAT 90–98
[2017-12-27] MEDS: PIPERACILL/TAZOBAC IV 3.375 GM in DEXTROSE 5% 100ML 100 ML IV SCH ×3 (06:11→22:02)
[2017-12-27] MEDS: IPRATROPIUM BROMIDE NEB SOLN 0.02% 2.5 ML VIAL INH SCH ×4 (07:19→19:15)
[2017-12-27] MEDS: LEVALBUTEROL 1.25MG/0.5ML NEB INH SCH ×4 (07:19→19:15)
[2017-12-27] MEDS: MAGNESIUM CHLORIDE 64MG DELAYED REL TAB PO SCH (08:00)
[2017-12-27] MEDS: PANTOprazole SOD 40 MG TAB PO SCH (08:00)
[2017-12-27] MEDS: GUAIFENESIN 600 MG TABCR PO SCH ×2 (08:00→21:04)
[2017-12-27] MEDS: CHOLECALCIFEROL 1000 INTER.UNIT TAB PO SCH (08:01)
[2017-12-27] MEDS: TAMSULOSIN HCL 0.4 MG CAP PO SCH ×2 (08:01→21:04)
[2017-12-27] MEDS: FINASTERIDE 5 MG TAB PO SCH (08:01)
[2017-12-27] MEDS: AMIODARONE 200 MG TAB PO SCH (08:01)
[2017-12-27] MEDS: INSULIN ASPART 100 UNITS/ML 3 ML PEN SC SCH ×4 (08:06→20:46)
[2017-12-27] MEDS ORDERED: INSULIN HUMAN NPH SC SCH (09:00)
[2017-12-27] MEDS ORDERED: INSULIN GLARGINE SOLOSTAR 100 UNITS/ML 3 ML PEN SC SCH (09:00)
[2017-12-27 09:25] LABS: HEMATOCRIT 35.9 % (42-52); HEMOGLOBIN 11.7 g/dL (14.0-18.0); MEAN CELL VOLUME 92.3 fL (80-100); MEAN CORPUSCULAR HEMOGLOBIN 30.1 pg (25-34); MEAN CORPUSCULAR HGB CONC 32.6 g/dl (32-36); MEAN PLATELET VOLUME 8.9 fL (7.4-10.4); PLATELET COUNT 134 K/uL (130-400); RED CELL DISTRIBUTION WIDTH CV 14.9 % (11.5-14.5); RED CELL DISTRIBUTION WIDTH SD 50.5 fL (36.4-46.3); WHITE BLOOD COUNT 14.21 K/uL (4.8-10.8)
[2017-12-27 09:37] LABS: INR 1.5 (0.9-1.1)
[2017-12-27 09:53] LABS: CALCIUM 7.9 mg/dl (8.5-10.1); CREATININE 1.88 mg/dl (0.60-1.40); POTASSIUM 3.7 mmol/L (3.5-5.1)
[2017-12-27] MEDS ORDERED: GLUCOSE 10 TABS/TUBE ONE (11:57)
--- NOTE | 2017-12-27 14:26 | Pharmacy Progress Note ---
Pharmacy Glycemic Short Note 2 Date of Service Dec 27, 2017. OUTPATIENT ANTIDIABETIC REGIMEN: * Lantus 22 units SQ daily * HbA1c: 10.4% (12/15/17) ASSESSMENT: * See progress note from 12/20/17 for background info, in short: * Continuing to titrate SQ basal/bolus insulin regimen in the setting of uncontrolled diabetes and steroid induced hyperglycemia * Steroids transitioned from Solu-medrol IV to Prednisone PO on 12/22. NPH was added to regimen to cover hyperglycemic effect of prednisone. * Patient has been receiving ~ 50 units of insulin per day with adequate control , but BSGs are on the lower side * 40 units of basal insulin with NPH (also covering post-prandial hyperglycemia from prednisone) * ~10 units of prandial/correctional insulin with NovoLog BSGs over the past 24 hours: * 12/24/17: 39, 69, 93, 119, 215, 161, 179 * 12/25/17: 72, 77, 98, 249 * 12/26/17: 168, 146, 117, 236 * 12/27/17: 197, 45 - 54 (treatment with OJ and glucose tablet), 74 * Changes needed to regimen: * AM fasting BSG trending upwards with Lantus 10 units daily - today trended further up to 197 mg/dL. Increased Lantus cautiously due to previous lows. With the hypoglycemic event prior to lunch today, reduced dose back to 10 units with breakfast. This is most likely not the culprit, but the patient had a severe hypoglycemic episode so will reset all values. * The most likely cause of hypoglycemia was correction factor plus increased dose of NPH. Decreased NPH dose back to 30 units for tomorrow and loosened correction factor to 45 today. For tomorrow will tighten to 30. Increased goal range to 140-180 mg/dL for right now to counteract any hypoglycemia secondary to aggressive Novolog dosing. PLAN FOR INPATIENT GLYCEMIC CONTROL: * Basal insulin - * Lantus 10 units SQ daily in AM * NPH - while on prednisone, 35 units SQ qAM (~0.4 unit/kg) * Bolus insulin * Novolog ACHS while diet ordered and Q6 when NPO * Correction Factor: 45 mg/dL/unit * NO carbohydrate ratio... NPH is serving this purpose * Goal range: 140-180 mg/dL PLAN FOR DISCHARGE: * Current A1c (10.4%) indicates sub-optimal glycemic control as an outpatient. * CDE spoke with patient this admission and it seems that he is compliant with his Lantus. * Consider adding prandial coverage or increasing Lantus on discharge (although , patient reports reasonable fasting BSGs). * Recommend f/u with PCP for DM management after discharge to optimize A1c. * Recommend increase in SMBG after discharge until BSGs improve.
--- NOTE | 2017-12-27 15:11 | PULMONARY PROGRESS NOTE ---
DATE: 12/27/2017 SUBJECTIVE: The patient states he feels somewhat better since yesterday. No longer bothered by the urinary symptoms that made him "miserable yesterday." The patient has required high-flow oxygen at liters at one point to maintain his saturations. He is bringing up some purulent phlegm without hemoptysis or pleuritic pain. PHYSICAL EXAMINATION: VITAL SIGNS: Temperature 36.4, pulse 66 and regular, respiratory rate 18, blood pressure 94/53, O2 sat 90% on 5 liters. SKIN: Without lesion. HEENT: Atraumatic, normocephalic, PERRLA, EOMI. Conjunctivae pale. Sclerae nonicteric. Fundi poorly visualized. NECK: Neck veins are not distended at 45 degrees. No obvious adenopathy in the supra or infraclavicular areas. LUNGS: Scattered wheeze, otherwise rales at the bases? E to A changes right base. HEART: Regular rate and rhythm. I do not appreciate a gallop. ABDOMEN: Soft, scaphoid. EXTREMITIES: Trace pedal edema. No clubbing. Peripheral cyanosis. NEUROLOGIC: Intact. No lateralizing signs. LABORATORY DATA: Sputum on December 15 - staph aureus (MSSA). White count now 14,000, H&H 11.7 and 35.9. ABGs on admission - pH 7.44, pCO2 37, pO2 of 72 on 5 liters. Creatinine 1.8, glucose levels have been erratic. Most recent INR 1.5. The patient is positive for influenza A antigen, PCR. IMAGING DATA: Chest CT scan reviewed shows multifocal ground-glass consolidation, most prominently displayed in the right upper lobe as well as left lower lobe and lingula. OVERALL ASSESSMENT: Elderly white male with prodrome consistent with influenza A infection and then subsequent staph pneumonia. The patient may be clinically turning it around just from his symptoms today compared to yesterday, but he certainly has minimal respiratory or ventilatory reserve and hopefully on current treatment will continue to improve. He will need to be watched carefully for any signs of incipient respiratory failure. I would continue the IV Zosyn and I am concerned about the use of amiodarone in an elderly patient with the current radiographic appearance. I suspected it is unlikely that was seen on amiodarone toxicity but certainly a possibility and I would consider holding the amiodarone, at least until we see significant improvement. Will discuss further with the hospitalist service given the long him half life of amiodarone and still will hang around in the tissue along after discontinued (at least 30 days), as it has a long half-life. I do not see an indication at this point in time for bronchoscopic intervention as I do not believe patient would tolerate that procedure nor do I believe it is necessary at this point in time. Will follow along with you.
[2017-12-27] MEDS ORDERED: GLUCAGON FOR INJ 1 MG VIAL SQ PRN (16:45)
[2017-12-27] MEDS ORDERED: GLUCOSE 10 TABS/TUBE PO PRN (16:45)
[2017-12-27] MEDS ORDERED: GLUCOSE 40% GEL 15 GM TUBE PO PRN (16:45)
[2017-12-27] MEDS ORDERED: DEXTROSE 50% 50 ML SYR IV PRN (16:45)
[2017-12-27] MEDS: WARFARIN SOD 3 MG TAB PO SCH (16:48)
--- NOTE | 2017-12-27 18:33 | Progress Note ---
Medicine Progress Note Date & Time of Visit: Dec 27, 2017 at 09:21. Subjective Pt was seen and examined Lying in bed with with no distress Pt said that breathing seems to improve a little bit today He said that he has been able to urinate without straight cath today Continue requires oxygen supplement Denies any chest pain, palpitation, dizziness and fever Objective Last 8 Hrs Date Time Temp Pulse Resp B/P (MAP) Pulse Ox O2 Delivery O2 Flow Rate FiO2 12/27/17 16:00 93 Nasal Cannula 3.0 12/27/17 15:27 37.0 65 20 114/60 (78) 93 Nasal Cannula 2.0 12/27/17 15:11 66 16 95 Nasal Cannula 5.0 12/27/17 11:35 36.4 66 18 94/53 (67) 90 5.0 12/27/17 11:17 66 16 90 Nasal Cannula 5.0 Physical Exam: General- No acute distress Head- atraumatic Eyes- PERRL, EOMI ENT- oropharynx clear Neck- supple, no JVD Lungs- +Decrease BS Heart- regular rhythm Abdomen- normal bowel sounds Extremities- +edema Neuro- alert, oriented x 3; PERRL, EOMI Skin- warm & dry Laboratory Results: Last 24 Hours Test 12/26/17 20:05 12/27/17 07:37 12/27/17 08:49 12/27/17 11:43 Bedside Glucose 236 mg/dl 197 mg/dl 47 mg/dl White Blood Count 14.21 K/uL Red Blood Count 3.89 M/uL Hemoglobin 11.7 g/dL Hematocrit 35.9 % Mean Corpuscular Volume 92.3 fL Mean Corpuscular Hemoglobin 30.1 pg Mean Corpuscular Hemoglobin Concent 32.6 g/dl RDW Standard Deviation 50.5 fL RDW Coefficient of Variation 14.9 % Platelet Count 134 K/uL Mean Platelet Volume 8.9 fL Prothrombin Time 15.9 SECONDS Prothromb Time International Ratio 1.5 Sodium Level 139 mmol/L Potassium Level 3.7 mmol/L Chloride Level 102 mmol/L Carbon Dioxide Level 32 mmol/L Anion Gap 4.0 mmol/L Blood Urea Nitrogen 33 mg/dl Creatinine 1.88 mg/dl Est Creatinine Clear Calc Drug Dose 31.0 ml/min Estimated GFR () 36.7 Estimated GFR (Non- 31.6 BUN/Creatinine Ratio 17.7 Random Glucose 202 mg/dl Calcium Level 7.9 mg/dl Test 12/27/17 11:57 12/27/17 12:05 12/27/17 16:34 12/27/17 17:35 Bedside Glucose 54 mg/dl 74 mg/dl 50 mg/dl 146 mg/dl Assessment & Plan PNEUMONIA Community acquired pneumonia CXR showed subtle left basal airspace opacity suspicious for a pneumonia Repeat CXR showed Progression of bilateral airspace opacities which favors multifocal pneumonia. sputum cx positive for staph aureus (MSSA) Was starting on Zosyn then changed On Ceftriaxone and Doxycycline Pulmonary on board Continue PT vibration and Neb treatment mucinex adding Repeat CXR in am 12/26 SOB Worsening Not getting better Completed course of Abx Repeat CXR today Multifocal patchy airspace consolidation has not significantly changed from 12/24/2017. Continue required oxygen supplement Continue prednisone Pulmonary on board Case discussed with Dr. Dutta Will get a CT chest without contrast Will start on broad coverage antibiotic with Zosyn Also pt is on amiodarone, that might be amiodarone toxicity, will consider cardiology consult after CT chest result. Lasix given since pt has a positive I/O Echo pending 12/[address] chest showed multifocal ground glass consolidation. Starting on Zosyn yesterday Consider possible amiodarone toxicity if symptoms does not improve Continue prednisone Pulmonary on board Continue oxygen supplement and neb treatment ACUTE HYPOXEMIC RESPIRATORY FAILURE Secondary to pneumonia Positive Influenza Since symptoms has been going on for more than 1 week, No Tamiflu starting Continue having SOB on exertion Hypoglycemia Has few episodes of Low BS in the 40-50 Pharmacist was notified and changed made on the insulin Continue monitor BS closely DM type 2 Pharmacy on board for glycemic management Recent Hb A1c 10.4 Continue insulin management as per pharmacy Will monitor BS OKSANA ON CKD STAGE 3 Possible related to acute illness/dehydration Creatine in the past year baseline 1.8 to 1.9 Creatine 1.8 today Received IVF Lasix givenx1 yesterday Stable ELEVATED WBC Mostly related to steroid continue monitor HYPONATREMIA Due to hyperglycemia Stable HX OF A FLUTTER : Rate and rhythm controlled Cont amiodarone Resume coumadin today INR 1.3 today FULL CODE DVT px resume Coumadin INR 1.5 DISPOSITION ; PT/OT prior to discharge medicine follow up with Dr Ward Current Inpatient Medications: Current Inpatient Medications Medications (Trade) Dose Ordered Sig/Krystal Route Start Time Stop Time Status Last Admin Dose Admin Miscellaneous Information (Consult Glycemic Management Pharmacy) 1 ea UD PRN N/A 12/15/17 18:01 01/14/18 18:00 Acetaminophen (Tylenol Tab) 650 mg Q4H PRN PO 12/15/17 17:15 01/14/18 17:14 12/18/17 05:52 650 MG Al Hydrox/Mg Hydrox/Simethicone (Maalox Max Susp) 15 ml Q4H PRN PO 12/15/17 17:15 01/14/18 17:14 Magnesium Hydroxide (Milk Of Magnesia Susp) 30 ml Q12H PRN PO 12/15/17 17:15 01/14/18 17:14 Ondansetron HCl (Zofran Inj) 4 mg Q6H PRN IV 12/15/17 17:15 01/14/18 17:14 Polyethylene (Miralax Powder Packet) 17 gm DAILY PRN PO 12/15/17 17:15 01/14/18 17:14 Amiodarone HCl (Cordarone Tab) 200 mg DAILY PO 12/16/17 09:00 01/15/18 08:59 12/27/17 08:01 200 MG Cholecalciferol (Vitamin D Tab) 2,000 inter.unit DAILY PO 12/16/17 09:00 01/15/18 08:59 12/27/17 08:01 2,000 INTER.UNIT Pantoprazole Sodium (Protonix Tab) 40 mg QAM PO 12/16/17 09:00 01/15/18 08:59 12/27/17 08:00 40 MG Ipratropium [place] (Atrovent 0.02% 0.5MG/2.5ML Neb) 0.5 mg Q2H PRN INH 12/15/17 21:15 01/14/18 21:14 Levalbuterol (Xopenex 1.25MG/ 0.5ML Neb) 1.25 mg Q2H PRN INH 12/15/17 21:15 01/14/18 21:14 Insulin Aspart (novoLOG ASPART) SLIDING SCALE ACHS SC 12/16/17 21:00 01/15/18 20:59 12/27/17 08:06 4 UNITS Hydrocodone Bit/ Homatropine Methylb (Hycodan Syrup) 5 ml Q6H PRN PO 12/17/17 08:00 12/31/17 07:59 12/18/17 16:45 5 ML Magnesium Chloride (Slow-Mag Tab) 128 mg DAILY PO 12/17/17 10:45 01/16/18 10:44 12/27/17 08:00 128 MG Warfarin Sodium (Coumadin Tab) 3 mg DAILY@1600 PO 12/21/17 16:00 01/19/18 15:59 Future hold 12/27/17 16:48 3 MG Guaifenesin (Mucinex Contr Rel Tab) 600 mg Q12 PO 12/21/17 21:00 01/20/18 20:59 12/27/17 08:00 600 MG Ipratropium [place] (Atrovent 0.02% 0.5MG/2.5ML Neb) 0.5 mg Q4RWA INH 12/22/17 12:00 01/15/18 02:59 12/27/17 15:09 0.5 MG Levalbuterol (Xopenex 1.25MG/ 0.5ML Neb) 1.25 mg Q4RWA INH 12/22/17 12:00 01/15/18 02:59 12/27/17 15:09 1.25 MG Prednisone (PredniSONE TAB) 40 mg DAILY PO 12/25/17 09:00 01/21/18 08:59 12/27/17 08:00 40 MG Miconazole Nitrate (Desenex Powder) 1 appln PRN PRN EXT 12/26/17 03:30 01/25/18 03:29 Piperacillin Sod/ Tazobactam Sod 3.375 gm/Dextrose 115 ml @ 28.75 mls/ hr Q8 IV 12/26/17 22:00 01/02/18 21:59 12/27/17 13:53 28.75 MLS/HR Miscellaneous Information (Consult) 1 ea UD PRN N/A 12/26/17 16:00 01/25/18 15:59 Tamsulosin HCl (Flomax Cap) 0.4 mg BID PO 12/26/17 21:00 01/15/18 08:59 12/27/17 08:01 0.4 MG Finasteride (Proscar Tab) 5 mg QAM PO 12/27/17 09:00 01/26/18 08:59 12/27/17 08:01 5 MG Insulin Glargine (Lantus Solostar Pen) 10 units QAM SC 12/28/17 09:00 01/27/18 08:59 Glucose (Glucose 40% Gel) 15-30 GRAMS 15 GRAMS... UD PRN PO 12/27/17 16:45 01/26/18 16:44 Glucose (Glucose Chew Tab) 4-8 Tablets 4 Tabl... UD PRN PO 12/27/17 16:45 01/26/18 16:44 12/27/17 16:46 4 TABS Dextrose (Dextrose 50% 50ML Syringe) 25-50ML OF 50% DW IV FOR... UD PRN IV 12/27/17 16:45 01/26/18 16:44 Glucagon (Glucagon Inj) 1 mg UD PRN SQ 12/27/17 16:45 01/26/18 16:44 Insulin Human NPH (novoLIN-N NPH) 30 units QAM SC 12/28/17 09:00 01/27/18 08:59
[2017-12-28] VITALS (13 sets, daily range): BP systolic 127–143; BP diastolic 66–75; PULSE 61–74; TEMP 36.9–37.2; O2SAT 90–98; BMI 24.5
[2017-12-28] MEDS: PIPERACILL/TAZOBAC IV 3.375 GM in DEXTROSE 5% 100ML 100 ML IV SCH ×3 (06:11→23:41)
[2017-12-28] MEDS: LEVALBUTEROL 1.25MG/0.5ML NEB INH SCH ×4 (07:08→19:39)
[2017-12-28] MEDS: IPRATROPIUM BROMIDE NEB SOLN 0.02% 2.5 ML VIAL INH SCH ×4 (07:09→19:39)
[2017-12-28 07:31] LABS: HEMATOCRIT 35.5 % (42-52); HEMOGLOBIN 11.6 g/dL (14.0-18.0); MEAN CELL VOLUME 92.9 fL (80-100); MEAN CORPUSCULAR HEMOGLOBIN 30.4 pg (25-34); MEAN CORPUSCULAR HGB CONC 32.7 g/dl (32-36); MEAN PLATELET VOLUME 8.6 fL (7.4-10.4); PLATELET COUNT 127 K/uL (130-400); RED CELL DISTRIBUTION WIDTH CV 14.9 % (11.5-14.5); RED CELL DISTRIBUTION WIDTH SD 50.3 fL (36.4-46.3); WHITE BLOOD COUNT 14.24 K/uL (4.8-10.8)
[2017-12-28 07:40] LABS: INR 2.4 (0.9-1.1)
--- NOTE | 2017-12-28 08:03 | DIAGNOSTIC IMAGING REPORT ---
SINGLE VIEW CHEST CLINICAL HISTORY: Follow-up pneumonia. FINDINGS: An AP, portable, upright chest radiograph is compared to chest x-ray and chest CT dated 12/26/2017. The examination is degraded by portable technique and patient rotation. The cardiomediastinal silhouette is unremarkable. Patchy airspace consolidation the right upper lung and at the left lung base is increasingly confluent as compared to previous. Patchy airspace opacities are also seen at the right lung base. Small pleural effusions are identified. No pneumothorax is seen. The skeletal structures are osteopenic. The bony thorax is grossly intact. Degenerative change is seen throughout the thoracic spine. IMPRESSION: 1. Multifocal patchy airspace consolidation as above. This is increasingly confluent in the right upper lobe as compared to 12/26/2017. 2. Small pleural effusions. Electronically signed by: Jonatan Duval M.D. 12/28/2017 8:01 AM Dictated Date/Time: 12/28/2017 8:00 AM
[2017-12-28] MEDS: INSULIN ASPART 100 UNITS/ML 3 ML PEN SC SCH ×4 (08:06→21:05)
[2017-12-28 08:08] LABS: CALCIUM 7.6 mg/dl (8.5-10.1); CREATININE 1.65 mg/dl (0.60-1.40); POTASSIUM 3.9 mmol/L (3.5-5.1)
[2017-12-28] MEDS: TAMSULOSIN HCL 0.4 MG CAP PO SCH ×2 (08:30→21:02)
[2017-12-28] MEDS: CHOLECALCIFEROL 1000 INTER.UNIT TAB PO SCH (08:30)
[2017-12-28] MEDS: FINASTERIDE 5 MG TAB PO SCH (08:30)
[2017-12-28] MEDS: MAGNESIUM CHLORIDE 64MG DELAYED REL TAB PO SCH (08:30)
[2017-12-28] MEDS: GUAIFENESIN 600 MG TABCR PO SCH ×2 (08:32→21:02)
[2017-12-28] MEDS: AMIODARONE 200 MG TAB PO SCH (08:32)
[2017-12-28] MEDS: PANTOprazole SOD 40 MG TAB PO SCH (08:32)
[2017-12-28] MEDS ORDERED: INSULIN HUMAN NPH SC SCH ×3 (09:00)
[2017-12-28] MEDS ORDERED: INSULIN GLARGINE SOLOSTAR 100 UNITS/ML 3 ML PEN SC SCH ×5 (09:00→17:00)
--- NOTE | 2017-12-28 11:24 | PULMONARY PROGRESS NOTE ---
DATE: 12/28/2017 TIME: 10:30 SUBJECTIVE: The patient was ambulated this morning, started out on 1 liter of oxygen via nasal cannula and quickly desaturated and became less responsive and had to be brought back to bed. He is now on an OxyMask and they are titrating his oxygen, currently down to 5 liters. Initially, he was placed on liters with borderline sats. He has no memory for what transpired while he was ambulating, but feels that he is unable to get enough "air into his lungs". 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 He did have a smoking history of a pack a day for several years but quit 50 years ago. He has been on amiodarone for greater than 3-4 years, according to his daughter who is an engine emission technician here at the hospital. Dr. Piña and Raul Evans follow the patient from cardiology. As noted earlier, his sputum grew out Staph aureus December 15 and he has an elevated creatinine and his sera was positive influenza A antigens/PCR. Chest x-ray which showed multifocal ground-glass consolidation, most prominently displayed in the right upper lobe but seen in the left lower lobe and the lingula was followed up with a chest x-ray today that clearly shows increased consolidative changes, right upper lobe and certainly looks no better. He has small bilateral pleural effusions. PHYSICAL EXAMINATION: CURRENT VITAL SIGNS: Temperature 37, pulse 64 and irregular, respiratory rate 16, blood pressure 137/66, O2 sat 90% on 5 liters via OxyMask. Weight 82 kilograms was 86.8 kilograms yesterday. SKIN: Without lesion. HEENT: Atraumatic, normocephalic. PERRLA. LUNGS: Scattered wheeze right posterior with rales. CARDIAC: The pulse is irregularly irregular rhythm with rate in the 60s. SKIN: Without lesion. HEENT: Atraumatic, normocephalic, PERRLA, EOMI. Conjunctivae pale. Sclerae nonicteric. Fundi poorly visualized. NECK: Neck veins are not distended at 45 degrees. No obvious adenopathy in the supra or infraclavicular areas. LUNGS: Scattered wheeze right posterior base with fine rales. CARDIAC: irregular irregular rhythm with a controlled ventricular response, I do not appreciate a gallop. Abdomen: Soft, scaphoid. No evidence of hepatosplenomegaly. EXTREMITIES: Trace to +1 pitting edema. No clubbing. Peripheral cyanosis. NEUROLOGICAL: Cranial nerves II-XII grossly intact. The patient's speech is somewhat sluggish. No lateralizing signs. LABORATORY DATA: White count 14,000, H&H 11.6 and 35.5, BUN 29, creatinine 1.6. IMAGING DATA: Chest x-ray today as stated shows multifocal patchy airspace consolidation increasingly confluent right upper lobe with small bilateral pleural effusions. 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 At this point in time, I think patient should be transferred to the ICU where he could be released to a monitored bed where he could be observed closely. The amiodarone needs to be stopped and I would opt to steroid therapy given the possibility of lung toxicity and watch for signs of incipient acute hypoxic respiratory failure. The patient may require BiPAP therapy if his sats do drop additionally. I have explained this to the patient and daughter and I have contacted the [facility] certified concierge CHRIS and Jonatan Domínguez about evaluating the patient for possible transfer. MTDD
--- NOTE | 2017-12-28 12:16 | Cardiology Consultation ---
Cardiology Consultation Date of Service Dec 28, 2017. Cardiology Consultation Indication: Consultation for hypoxia History: This is an 87-year-old male patient whom I followed for the past several years through my clinic. He originally presented with atrial arrhythmias and tachycardia induced cardiomyopathy. He was treated with amiodarone and has maintained a sinus rhythm with his cardiac function returning to normal once his tachycardia was controlled. He has done well for several years. He was admitted to the hospital earlier this month with influenza, developing a secondary bacterial infection with staph aureus. His initial chest x-ray had small infiltrates in the left lower lung field. Over the course of several days of treatment his chest x-ray has worsened now with both right upper lobe and left lower lobe infiltrates. He remains hypoxic with any type of activity. At rest with supplemental oxygen he is comfortable. He has maintained sinus rhythm throughout his hospital stay. There is concern regarding amiodarone toxicity due to the patient's chest x-ray patterns and lack of improvement despite antibiotics and steroids. Allergies: No known medical allergies Current Inpatient Medications Medications (Trade) Dose Ordered Sig/Krystal Route Start Time Stop Time Status Last Admin Dose Admin Miscellaneous Information (Consult Glycemic Management Pharmacy) 1 ea UD PRN N/A 12/15/17 18:01 01/14/18 18:00 Acetaminophen (Tylenol Tab) 650 mg Q4H PRN PO 12/15/17 17:15 01/14/18 17:14 12/18/17 05:52 650 MG Al Hydrox/Mg Hydrox/Simethicone (Maalox Max Susp) 15 ml Q4H PRN PO 12/15/17 17:15 01/14/18 17:14 Magnesium Hydroxide (Milk Of Magnesia Susp) 30 ml Q12H PRN PO 12/15/17 17:15 01/14/18 17:14 Ondansetron HCl (Zofran Inj) 4 mg Q6H PRN IV 12/15/17 17:15 01/14/18 17:14 Polyethylene (Miralax Powder Packet) 17 gm DAILY PRN PO 12/15/17 17:15 01/14/18 17:14 Cholecalciferol (Vitamin D Tab) 2,000 inter.unit DAILY PO 12/16/17 09:00 01/15/18 08:59 12/28/17 08:30 2,000 INTER.UNIT Pantoprazole Sodium (Protonix Tab) 40 mg QAM PO 12/16/17 09:00 01/15/18 08:59 12/28/17 08:32 40 MG Ipratropium [place] (Atrovent 0.02% 0.5MG/2.5ML Neb) 0.5 mg Q2H PRN INH 12/15/17 21:15 01/14/18 21:14 Levalbuterol (Xopenex 1.25MG/ 0.5ML Neb) 1.25 mg Q2H PRN INH 12/15/17 21:15 01/14/18 21:14 Insulin Aspart (novoLOG ASPART) SLIDING SCALE ACHS SC 12/16/17 21:00 01/15/18 20:59 12/27/17 08:06 4 UNITS Hydrocodone Bit/ Homatropine Methylb (Hycodan Syrup) 5 ml Q6H PRN PO 12/17/17 08:00 12/31/17 07:59 12/18/17 16:45 5 ML Magnesium Chloride (Slow-Mag Tab) 128 mg DAILY PO 12/17/17 10:45 01/16/18 10:44 12/28/17 08:30 128 MG Warfarin Sodium (Coumadin Tab) 3 mg DAILY@1600 PO 12/21/17 16:00 01/19/18 15:59 Future hold 12/27/17 16:48 3 MG Guaifenesin (Mucinex Contr Rel Tab) 600 mg Q12 PO 12/21/17 21:00 01/20/18 20:59 12/28/17 08:32 600 MG Ipratropium [place] (Atrovent 0.02% 0.5MG/2.5ML Neb) 0.5 mg Q4RWA INH 12/22/17 12:00 01/15/18 02:59 12/28/17 11:34 0.5 MG Levalbuterol (Xopenex 1.25MG/ 0.5ML Neb) 1.25 mg Q4RWA INH 12/22/17 12:00 01/15/18 02:59 12/28/17 11:34 1.25 MG Prednisone (PredniSONE TAB) 40 mg DAILY PO 12/25/17 09:00 01/21/18 08:59 12/28/17 08:32 40 MG Miconazole Nitrate (Desenex Powder) 1 appln PRN PRN EXT 12/26/17 03:30 01/25/18 03:29 Piperacillin Sod/ Tazobactam Sod 3.375 gm/Dextrose 115 ml @ 28.75 mls/ hr Q8 IV 12/26/17 22:00 01/02/18 21:59 12/28/17 06:11 28.75 MLS/HR Miscellaneous Information (Consult) 1 ea UD PRN N/A 12/26/17 16:00 01/25/18 15:59 Tamsulosin HCl (Flomax Cap) 0.4 mg BID PO 12/26/17 21:00 01/15/18 08:59 12/28/17 08:30 0.4 MG Finasteride (Proscar Tab) 5 mg QAM PO 12/27/17 09:00 01/26/18 08:59 12/28/17 08:30 5 MG Glucose (Glucose 40% Gel) 15-30 GRAMS 15 GRAMS... UD PRN PO 12/27/17 16:45 01/26/18 16:44 Glucose (Glucose Chew Tab) 4-8 Tablets 4 Tabl... UD PRN PO 12/27/17 16:45 01/26/18 16:44 12/27/17 16:46 4 TABS Dextrose (Dextrose 50% 50ML Syringe) 25-50ML OF 50% DW IV FOR... UD PRN IV 12/27/17 16:45 01/26/18 16:44 Glucagon (Glucagon Inj) 1 mg UD PRN SQ 12/27/17 16:45 01/26/18 16:44 Insulin Human NPH (novoLIN-N NPH) 30 units QAM SC 12/28/17 09:00 01/27/18 08:59 12/28/17 08:39 30 UNITS Insulin Glargine (Lantus Solostar Pen) 10 units QDD SC 12/28/17 17:00 01/27/18 16:59 Past medical history: As outlined above the patient has a history of atrial arrhythmias which have been treated effectively with amiodarone for the past several years. Upon his initial presentation many years ago he did have a tachycardia induced cardiomyopathy which has completely resolved. His echocardiogram this admission, although somewhat limited, reveals preserved left and right ventricular systolic function and no significant valvular pathology. The patient is a type II diabetic. Social history: Patient is a non-smoker. Family medical history: Noncontributory General: The patient denies weight change, night sweats, fever, chills. Head: The patient denies headache and prior head trauma. Cardiovascular: The patient denies chest pain or chest discomfort, dyspnea on exertion, palpitations, PND, orthopnea, edema, spontaneous shortness of breath, syncope and near syncope. Pulmonary: The patient denies cough, wheeze, pleurisy, hemoptysis, sputum, and excessive snoring. Gastrointestinal: The patient denies nausea, vomiting, diarrhea, constipation, bloating, hematemesis, hematochezia, and abdominal pain. Skin: The patient denies diaphoresis and rash. Musculoskeletal: The patient denies joint pain, joint swelling, myalgia, back pain, neck pain and prior injuries. Neurological: The patient denies prior stroke and seizures Vital Signs Past 12 Hours Date Time Temp Pulse Resp B/P (MAP) Pulse Ox O2 Delivery O2 Flow Rate FiO2 12/28/17 11:43 36.9 61 16 127/75 (92) 98 Nasal Cannula 6.0 12/28/17 11:34 62 16 95 Nasal Cannula 7.0 12/28/17 11:30 92 12/28/17 08:00 Nasal Cannula 5.0 12/28/17 07:45 37.0 64 16 137/66 (89) 90 Nasal Cannula 2.0 12/28/17 07:09 62 16 91 Nasal Cannula 2.0 General Appearance: Alert and Oriented x3. NAD. Head: Normocephalic Atraumatic. Eyes: PERRLA, EOMI, conjunctiva and sclera clear Neck: Supple. No carotid bruits noted. No JVD. No HJD. Respiratory: Fine rales right upper lung field Cardiovascular: Reg rate and rhythm. S1 and S2 noted. No murmurs, rubs, gallops. PMI non displace. Abdomen: Normal bowel sounds, soft nontender. no abdominal bruits. Extremities: No edema, no clubbing or cyanosis. distal pulses 2/4 bilaterally. Neuro: No focal deficits. Psychiatric: Normal affect. Last 24 Hours Test 12/27/17 16:34 12/27/17 17:35 12/27/17 20:18 12/28/17 07:02 Bedside Glucose 50 mg/dl 146 mg/dl 153 mg/dl 95 mg/dl Test 12/28/17 07:04 12/28/17 08:24 12/28/17 11:24 White Blood Count 14.24 K/uL Red Blood Count 3.82 M/uL Hemoglobin 11.6 g/dL Hematocrit 35.5 % Mean Corpuscular Volume 92.9 fL Mean Corpuscular Hemoglobin 30.4 pg Mean Corpuscular Hemoglobin Concent 32.7 g/dl RDW Standard Deviation 50.3 fL RDW Coefficient of Variation 14.9 % Platelet Count 127 K/uL Mean Platelet Volume 8.6 fL Prothrombin Time 25.2 SECONDS Prothromb Time International Ratio 2.4 Sodium Level 139 mmol/L Potassium Level 3.9 mmol/L Chloride Level 104 mmol/L Carbon Dioxide Level 31 mmol/L Anion Gap 5.0 mmol/L Blood Urea Nitrogen 29 mg/dl Creatinine 1.65 mg/dl Est Creatinine Clear Calc Drug Dose 35.3 ml/min Estimated GFR () 42.9 Estimated GFR (Non- 37.0 BUN/Creatinine Ratio 17.5 Random Glucose 99 mg/dl Calcium Level 7.6 mg/dl Bedside Glucose 121 mg/dl 80 mg/dl Chest x-ray: IMPRESSION: 1. Multifocal patchy airspace consolidation as above. This is increasingly confluent in the right upper lobe as compared to 12/26/2017. 2. Small pleural effusions. Impression/recommendations: This is an 87-year-old male patient who presents with influenza with possible secondary bacterial pneumonia. Despite treatment with antibiotics and steroids he continues to have worsening hypoxia. His chest x-ray has patchy infiltrates. This type of x-ray pattern can certainly reflect amiodarone toxicity. I agree with stopping this medication. It will take a long time for the amiodarone to washout, so I would not start him on any other antiarrhythmics at this time. He is comfortable and clinically stable at rest on supplemental oxygen. 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 We will follow along with you during his hospital stay. Thank you Dr. Piña
--- NOTE | 2017-12-28 13:45 | Pharmacy Progress Note ---
Pharmacy Glycemic Short Note 2 Date of Service Dec 28, 2017. OUTPATIENT ANTIDIABETIC REGIMEN: * Lantus 22 units SQ daily at dinner * HbA1c: 10.4% (12/15/17) ASSESSMENT: * See progress note from 12/20/17 for background info, in short: * Continuing to titrate SQ basal/bolus insulin regimen in the setting of uncontrolled diabetes and steroid induced hyperglycemia * Steroids transitioned from Solu-medrol IV to Prednisone PO on 12/22. NPH was added to regimen to cover hyperglycemic effect of prednisone. * Patient has been receiving ~ 50 units of insulin per day with adequate control , but BSGs are on the lower side * 30 units of basal insulin with NPH (also covering post-prandial hyperglycemia from prednisone) * ~4 units of prandial/correctional insulin with NovoLog BSGs over the past 24 hours: * 12/24/17: 39, 69, 93, 119, 215, 161, 179 * 12/25/17: 72, 77, 98, 249 * 12/26/17: 168, 146, 117, 236 * 12/27/17: 197, 45 - 54 (treatment with OJ and glucose tablet), 74, 50, 52 ( treatment with glucose tablet), 146,153 * 12/28/17: 95 * Changes needed to regimen: * AM fasting BSG trending downwards with Lantus 12 units daily Nurse called this morning and stated that the patient takes this at dinnertime. Move Lantus to dinner and hold for today. The patient is trending downwards today. Start Lantus 5 units tomorrow if blood sugar over 150 mg/dL. * The most likely cause of hypoglycemia yesterday was correction factor plus increased dose of NPH. Decreased NPH dose back to 30 units for today and loosened correction factor to 45. Increased goal range to 140-180 mg/dL for right now to counteract any hypoglycemia secondary to aggressive Novolog dosing. Provided a scale for tomorrow to ensure patient does not have low blood sugar. PLAN FOR INPATIENT GLYCEMIC CONTROL: * Basal insulin - * Lantus 5 units SQ daily at dinner if blood sugar over 150 mg/dL starting * NPH - while on prednisone, 30 units SQ qAM today then 20-40 units SQ starting tomorrow (20 units if blood sugar less than 100 mg/dL and 40 units if blood sugar greater than 150 mg/dL) * Bolus insulin * Novolog ACHS while diet ordered and Q6 when NPO * Correction Factor: 45 mg/dL/unit * NO carbohydrate ratio... NPH is serving this purpose * Goal range: 140-180 mg/dL PLAN FOR DISCHARGE: * Current A1c (10.4%) indicates sub-optimal glycemic control as an outpatient. * CDE spoke with patient this admission and it seems that he is compliant with his Lantus. * Consider adding prandial coverage or increasing Lantus on discharge (although , patient reports reasonable fasting BSGs). * Recommend f/u with PCP for DM management after discharge to optimize A1c. * Recommend increase in SMBG after discharge until BSGs improve.
--- NOTE | 2017-12-28 13:52 | Progress Note ---
Internal Med Progress Note Date of Service: Dec 28, 2017. Provider Documentation: SUBJECTIVE: The patient was seen and examined Cough for 1 week ,no fever,chills or Body aches with it Remains very weak and lethargic Has not had any significant improvement for the last weak Has had CT of the Chest and is under Pulmonary and cardiology care SOB with Desaturation with minimal activity OBJECTIVE: Vital Signs-as noted below Exam: General-No distress at rest Eyes-normal ENT-normal Neck-supple Lungs-decreased breath sound bilaterally Moderate crackles bilaterally at the bases more on the left than the right Heart-Regular,no murmur Abdomen-Benign,no masses,bowel sound present Extremities-trace edema bilaterally Neuro-AAOx3 Lab data as noted below. ASSESSMENT & PLAN: Assessment and Plan BILATERAL MULTILOBAR PNEUMONIA Community acquired pneumonia Started on IV Zosyn ( for pseudomonal coverage in setting of Type 2 DM / hyperglycemia ) Blood CULTURE-NEGATIVE and sputum culture :Staph Aureus.MSSA Received Vancomycin ,Changed to Ceftriaxone and Doxycycline Solumedrol added and now on Prednisone Pulmonary consulted-appreciate input Has been on Zosyn -continue for now ACUTE HYPOXEMIC RESPIRATORY FAILURE Presented with SOB /cough for 1 week and noted to have spo2 86 in RA , improved with supplemental 02 Secondary to pneumonia Steroid avoided as no significant wheeze noted and the patient is diabetic Cont wean off 02 as respiratory status improves Influenza A positive-On Flu isolation. Not been put on any Flu medications due to symptoms >1 week and no acute flu symptoms now Clinically a little better Requiring Face musk to maintain Saturation May have Amiodarone Toxicity On top of Chronic lung disease Amiodarone stopped Cardiology is on board HYPERGLYCEMIA WITH TYPE 2 DM On Lantus 22 U HS Started on IV insulin protocol Pharmacy consulted for glycemic management Hb A1c 9.8 on 09/2017 Hb A1c 10.4 now Reasonably controlled [place] ON CKD STAGE 3 due to above cont IV fluid resuscitation follow PRP-renal function is improving Renal function is slightly worse today HYPONATREMIA : Due to hyperglycemia cont IVF with NSS follow PRP -normalized HX OF A FLUTTER : Rate and rhythm controlled Cont amiodarone INR elevated > 4 , Coumadin on hold INR 2.4on ,remains therapeutic FULL CODE DISPOSITION ; PT/OT prior to discharge medicine follow up with Dr Ward Vital Signs: Date Time Temp Pulse Resp B/P (MAP) Pulse Ox O2 Delivery O2 Flow Rate FiO2 12/29/17 09:47 91 Nasal Cannula 2.0 12/29/17 08:38 64 20 124/62 (82) 91 Nasal Cannula 2.0 12/29/17 07:08 61 16 95 Nasal Cannula 2.0 12/29/17 04:41 36.6 61 18 124/62 (82) 95 Nasal Cannula 2.0 12/29/17 04:00 Nasal Cannula 2.0 12/29/17 00:00 Nasal Cannula 2.0 12/28/17 23:36 36.9 65 18 128/66 (86) 96 Nasal Cannula 2.0 12/28/17 20:00 95 Nasal Cannula 2.0 12/28/17 19:42 69 16 95 Nasal Cannula 2.0 12/28/17 19:35 36.9 73 18 143/74 (97) 93 Nasal Cannula 2.0 12/28/17 16:00 94 Nasal Cannula 2.0 12/28/17 15:33 37.2 74 18 127/69 (88) 93 Nasal Cannula 2.0 12/28/17 15:28 62 16 98 Nasal Cannula 5.0 12/28/17 13:11 98 Nasal Cannula 6.0 12/28/17 11:43 36.9 61 16 127/75 (92) 98 Nasal Cannula 6.0 12/28/17 11:34 62 16 95 Nasal Cannula 7.0 12/28/17 11:30 92 Lab Results: Results Past 24 Hours Test 12/28/17 11:24 12/28/17 16:05 12/28/17 20:19 12/29/17 01:53 Range/Units Bedside Glucose 80 259 297 288 70-99 mg/dl Test 12/29/17 07:21 Range/Units Bedside Glucose 196 70-99 mg/dl
[2017-12-28] MEDS ORDERED: ACETAZOLAMIDE IV INFUSION 500 MG in DEXTROSE 5% 100ML 100 ML IV ONE (14:15)
--- NOTE | 2017-12-28 15:32 | Pulmonology Progress Note ---
Pulmonary Progress Note Date of Service Dec 28, 2017. Attending Dr. Rudolph Subjective Patient seen and examined at bedside this morning and again this afternoon at approximately 315pm. Patient is comfortable at rest with no dyspnea and no acute distress. He currently has supplemental O2 via nasal cannula at 4 L/min. He does express dyspnea with exertion with minimal activity. He has no chest pain or tightness. He has no fever or chills. He has no nausea or vomiting. Review of the chart shows that the patient is approximately 12 L positive since admission. Arterial blood gas revealed alkalosis with a pH of 7.54 PCO2 36 PaO2 66 and bicarb of 30. Patient had saturation of 95% on the arterial blood gas with a temperature of 36.9 centigrade. Patient has no discomfort other than with ambulation. He is urinating well and has a bedside urinal. Patient's daughter Mandy and are at bedside. Discussed the patient's condition as well as possible transfer to the intensive care unit. At this point, patient elects to stay on telemetry with close monitoring. A cardiac telemetry unit was applied and patient is currently being monitored remotely for arrhythmias. Also discussed with Dr. Piña who agrees that amiodarone should be stopped. Patient has been on the amiodarone for approximately [address] scan of chest and chest x-ray reveal right upper lobe opacity as well as bibasilar opacities consistent with bacterial pneumonia as sequela from viral pneumonia. Sputum cultures revealed MSSA. Patient is on Zosyn. Objective GENERAL : No acute distress EYES: No icterus, gaze conjugate NOSE: No evidence of epistaxis. Nasal cannula in place MOUTH: No lesions or candidiasis NECK: Supple LUNGS: Decreased breath sounds at the bases and in the right middle lobe. Clear to auscultation and bilateral upper lobes. No reproducible chest pain with palpation. HEART: Regular, rate controlled with a rate of 68 ABDOMEN: Soft, NT, ND, BS Present EXTREMITIES: Bilateral LE edema, pedal pulses intact and equal bilaterally. Bilateral upper extremity edema. Radial pulses present and equal bilaterally NEURO: A&OX3 Assessment & Plan Influenza type A * Patient admitted 12/15/17 * Does not appear that the patient received Tamiflu * Continue supportive care Pneumonia * Bacterial sequela from viral illness * Sputum with MSSA * Received 6 days of doxycycline * Zosyn currently day #14 * Received 1 day of azithromycin on admission * Received 7 days of ceftriaxone from 12/15/2017 12/21/2017 * Afebrile * Currently on methylprednisolone Fluid overload * Currently alkalotic * Last dose of furosemide 3 days ago * Will give 1 dose of Diamox 500 mg IV today * Follow strict I's and O's Atrial fibrillation * Cardiology following -appreciate Dr. Piña's input * Hold amiodarone due to possible lung toxicity * Place patient on telemetry * Continue anticoagulation with warfarin * INR currently 2.4 DVT prophylaxis * Anticoagulated with warfarin Thank you for including us in the care of this patient. Please refer to Dr. Rudolph's addendum for further recommendations. Resident Physician Supervision Note: I was present with Jonatan Domínguez PA-C during the history and exam. I discussed the case with him and agree with the findings and plan as documented in the note. Any exceptions or clarifications are listed here: Patient with influenza A, complicated by MSSA superimposed infection, mostly in the RUL. Requires supplemental O2, has dyspnea with exertion. Not symptomatic at rest Plan to continue Abx treatment, on Zosyn Diamox today, became alkalemic after few days of furosemide therapy A-fib is controlled. Amiodarone on hold for the time being, but still exposed to lung toxicity given extremely long half life Discussed with and daughter at bedside Documented By: Maycol Rudolph MD Data Medications: Current Inpatient Medications Medications (Trade) Dose Ordered Sig/Krystal Route Start Time Stop Time Status Last Admin Dose Admin Miscellaneous Information (Consult Glycemic Management Pharmacy) 1 ea UD PRN N/A 12/15/17 18:01 01/14/18 18:00 Acetaminophen (Tylenol Tab) 650 mg Q4H PRN PO 12/15/17 17:15 01/14/18 17:14 12/18/17 05:52 650 MG Al Hydrox/Mg Hydrox/Simethicone (Maalox Max Susp) 15 ml Q4H PRN PO 12/15/17 17:15 01/14/18 17:14 Magnesium Hydroxide (Milk Of Magnesia Susp) 30 ml Q12H PRN PO 12/15/17 17:15 01/14/18 17:14 Ondansetron HCl (Zofran Inj) 4 mg Q6H PRN IV 12/15/17 17:15 01/14/18 17:14 Polyethylene (Miralax Powder Packet) 17 gm DAILY PRN PO 12/15/17 17:15 01/14/18 17:14 Cholecalciferol (Vitamin D Tab) 2,000 inter.unit DAILY PO 12/16/17 09:00 01/15/18 08:59 12/28/17 08:30 2,000 INTER.UNIT Pantoprazole Sodium (Protonix Tab) 40 mg QAM PO 12/16/17 09:00 01/15/18 08:59 12/28/17 08:32 40 MG Ipratropium [place] (Atrovent 0.02% 0.5MG/2.5ML Neb) 0.5 mg Q2H PRN INH 12/15/17 21:15 01/14/18 21:14 Levalbuterol (Xopenex 1.25MG/ 0.5ML Neb) 1.25 mg Q2H PRN INH 12/15/17 21:15 01/14/18 21:14 Insulin Aspart (novoLOG ASPART) SLIDING SCALE ACHS SC 12/16/17 21:00 01/15/18 20:59 12/27/17 08:06 4 UNITS Hydrocodone Bit/ Homatropine Methylb (Hycodan Syrup) 5 ml Q6H PRN PO 12/17/17 08:00 12/31/17 07:59 12/18/17 16:45 5 ML Magnesium Chloride (Slow-Mag Tab) 128 mg DAILY PO 12/17/17 10:45 01/16/18 10:44 12/28/17 08:30 128 MG Warfarin Sodium (Coumadin Tab) 3 mg DAILY@1600 PO 12/21/17 16:00 01/19/18 15:59 Future hold 12/27/17 16:48 3 MG Guaifenesin (Mucinex Contr Rel Tab) 600 mg Q12 PO 12/21/17 21:00 01/20/18 20:59 12/28/17 08:32 600 MG Ipratropium [place] (Atrovent 0.02% 0.5MG/2.5ML Neb) 0.5 mg Q4RWA INH 12/22/17 12:00 01/15/18 02:59 12/28/17 11:34 0.5 MG Levalbuterol (Xopenex 1.25MG/ 0.5ML Neb) 1.25 mg Q4RWA INH 12/22/17 12:00 01/15/18 02:59 12/28/17 11:34 1.25 MG Prednisone (PredniSONE TAB) 40 mg DAILY PO 12/25/17 09:00 01/21/18 08:59 12/28/17 08:32 40 MG Miconazole Nitrate (Desenex Powder) 1 appln PRN PRN EXT 12/26/17 03:30 01/25/18 03:29 Piperacillin Sod/ Tazobactam Sod 3.375 gm/Dextrose 115 ml @ 28.75 mls/ hr Q8 IV 12/26/17 22:00 01/02/18 21:59 12/28/17 13:46 28.75 MLS/HR Miscellaneous Information (Consult) 1 ea UD PRN N/A 12/26/17 16:00 01/25/18 15:59 Tamsulosin HCl (Flomax Cap) 0.4 mg BID PO 12/26/17 21:00 01/15/18 08:59 12/28/17 08:30 0.4 MG Finasteride (Proscar Tab) 5 mg QAM PO 12/27/17 09:00 01/26/18 08:59 12/28/17 08:30 5 MG Glucose (Glucose 40% Gel) 15-30 GRAMS 15 GRAMS... UD PRN PO 12/27/17 16:45 01/26/18 16:44 Glucose (Glucose Chew Tab) 4-8 Tablets 4 Tabl... UD PRN PO 12/27/17 16:45 01/26/18 16:44 12/27/17 16:46 4 TABS Dextrose (Dextrose 50% 50ML Syringe) 25-50ML OF 50% DW IV FOR... UD PRN IV 12/27/17 16:45 01/26/18 16:44 Glucagon (Glucagon Inj) 1 mg UD PRN SQ 12/27/17 16:45 01/26/18 16:44 Insulin Human NPH (novoLIN-N NPH) QAM SC 12/29/17 09:00 01/28/18 08:59 Insulin Glargine (Lantus Solostar Pen) SEE PROTOCOL TEXT QDD SC 12/28/17 17:00 01/27/18 16:59 Future hold Acetazolamide Sodium 500 mg/ Dextrose 105 ml @ 100 mls/hr NOW ONCE IV 12/28/17 14:15 12/28/17 15:17 I & O: 24-Hour Column 12/29/17 08:00 Intake Total 320 ml Output Total 275 ml Balance 45 ml Vital Signs: Date Time Temp Pulse Resp B/P (MAP) Pulse Ox O2 Delivery O2 Flow Rate FiO2 12/28/17 13:11 98 Nasal Cannula 6.0 12/28/17 11:43 36.9 61 16 127/75 (92) 98 Nasal Cannula 6.0 12/28/17 11:34 62 16 95 Nasal Cannula 7.0 12/28/17 11:30 92 12/28/17 08:00 Nasal Cannula 5.0 12/28/17 07:45 37.0 64 16 137/66 (89) 90 Nasal Cannula 2.0 12/28/17 07:09 62 16 91 Nasal Cannula 2.0 12/28/17 00:00 Nasal Cannula 2.0 12/27/17 23:32 36.3 59 20 161/76 (104) 96 Room Air 12/27/17 19:38 37.4 73 20 130/63 (85) 98 Nasal Cannula 2.0 12/27/17 19:17 66 16 97 Nasal Cannula 3.0 12/27/17 16:00 93 Nasal Cannula 3.0 12/27/17 15:27 37.0 65 20 114/60 (78) 93 Nasal Cannula 2.0 Laboratory Results: Last 24 Hours Test 12/27/17 16:34 12/27/17 17:35 12/27/17 20:18 12/28/17 07:02 Bedside Glucose 50 mg/dl 146 mg/dl 153 mg/dl 95 mg/dl Test 12/28/17 07:04 12/28/17 08:24 12/28/17 11:24 White Blood Count 14.24 K/uL Red Blood Count 3.82 M/uL Hemoglobin 11.6 g/dL Hematocrit 35.5 % Mean Corpuscular Volume 92.9 fL Mean Corpuscular Hemoglobin 30.4 pg Mean Corpuscular Hemoglobin Concent 32.7 g/dl RDW Standard Deviation 50.3 fL RDW Coefficient of Variation 14.9 % Platelet Count 127 K/uL Mean Platelet Volume 8.6 fL Prothrombin Time 25.2 SECONDS Prothromb Time International Ratio 2.4 Sodium Level 139 mmol/L Potassium Level 3.9 mmol/L Chloride Level 104 mmol/L Carbon Dioxide Level 31 mmol/L Anion Gap 5.0 mmol/L Blood Urea Nitrogen 29 mg/dl Creatinine 1.65 mg/dl Est Creatinine Clear Calc Drug Dose 35.3 ml/min Estimated GFR () 42.9 Estimated GFR (Non- 37.0 BUN/Creatinine Ratio 17.5 Random Glucose 99 mg/dl Calcium Level 7.6 mg/dl Bedside Glucose 121 mg/dl 80 mg/dl
[2017-12-28] MEDS: WARFARIN SOD 3 MG TAB PO SCH (15:39)
[2017-12-29] VITALS (16 sets, daily range): BP systolic 104–172; BP diastolic 55–68; PULSE 61–103; TEMP 36.3–36.9; O2SAT 91–98
[2017-12-29] MEDS ORDERED: INSULIN ASPART 100 UNITS/ML 3 ML PEN SC SCH (02:00)
[2017-12-29] MEDS: LEVALBUTEROL 1.25MG/0.5ML NEB INH SCH ×4 (07:08→19:57)
[2017-12-29] MEDS: IPRATROPIUM BROMIDE NEB SOLN 0.02% 2.5 ML VIAL INH SCH ×4 (07:08→19:57)
[2017-12-29] MEDS: FINASTERIDE 5 MG TAB PO SCH (08:11)
[2017-12-29] MEDS: PIPERACILL/TAZOBAC IV 3.375 GM in DEXTROSE 5% 100ML 100 ML IV SCH ×3 (08:11→23:38)
[2017-12-29] MEDS: TAMSULOSIN HCL 0.4 MG CAP PO SCH ×2 (08:11→20:44)
[2017-12-29] MEDS: GUAIFENESIN 600 MG TABCR PO SCH ×2 (08:12→20:44)
[2017-12-29] MEDS: CHOLECALCIFEROL 1000 INTER.UNIT TAB PO SCH (08:12)
[2017-12-29] MEDS: PANTOprazole SOD 40 MG TAB PO SCH (08:12)
[2017-12-29] MEDS: MAGNESIUM CHLORIDE 64MG DELAYED REL TAB PO SCH (08:13)
[2017-12-29] MEDS: INSULIN ASPART 100 UNITS/ML 3 ML PEN SC SCH ×4 (08:20→20:46)
[2017-12-29] MEDS ORDERED: INSULIN HUMAN NPH SC SCH (09:00)
--- NOTE | 2017-12-29 11:12 | PULMONARY PROGRESS NOTE ---
DATE: 12/29/2017 SUBJECTIVE: The patient still feels congested and dyspneic with even modest exertion. He is well saturated at rest and he has only been ambulating to the bathroom for bowel movement. Yesterday, as stated earlier, he desaturated with ambulation and became less responsive. His amiodarone was discontinued with concurrence by Dr. Piña. He was given a dose of Diamox and has been on adequate therapy for staph pneumonia. If one looks at his I&O, he has been liters ahead with administration of fluid and except for the last 48 hours when he appears to have lost 3-4 kilograms of water weight, he was markedly positive from a fluid standpoint. At this point in time, I would continue steroid therapy, IV antibiotics and I would diurese the patient on a regular basis with careful attention to the I&O measurement and weight as I believe there is some suggestion that the interstitial changes on x-ray may represent interstitial edema to some degree. He is certainly edematous in the lower extremities. I would obtain another liver profile as I suspect he has a degree of hypoalbuminemia as well with its reduced oncotic pressure contributing to fluid retention.
[2017-12-29 11:31] LABS: ISTAT POTASSIUM 3.9 mEq/L (3.3-5.0); ISTAT SODIUM 137 mEq/L (135-144)
--- NOTE | 2017-12-29 11:50 | Progress Note ---
Internal Med Progress Note Date of Service: Dec 29, 2017. Provider Documentation: SUBJECTIVE: The patient was seen and examined Cough for 1 week ,no fever,chills or Body aches with it Remains very weak and lethargic Has not had any significant improvement for the last weak Has had CT of the Chest and is under Pulmonary and cardiology care SOB with Desaturation with minimal activity Very slow improvement -denies any symptoms except generalized weakness OBJECTIVE: Vital Signs-as noted below Exam: General-No distress at rest Eyes-normal ENT-normal Neck-supple Lungs-decreased breath sound bilaterally Moderate crackles bilaterally at the bases more on the left than the right Heart-Regular,no murmur Abdomen-Benign,no masses,bowel sound present Extremities-trace edema bilaterally Neuro-AAOx3 Lab data as noted below. ASSESSMENT & PLAN: Assessment and Plan BILATERAL MULTILOBAR PNEUMONIA Community acquired pneumonia Started on IV Zosyn ( for pseudomonal coverage in setting of Type 2 DM / hyperglycemia ) Blood CULTURE-NEGATIVE and sputum culture :Staph Aureus.MSSA Received Vancomycin ,Changed to Ceftriaxone and Doxycycline Solumedrol added and now on Prednisone Pulmonary consulted-appreciate input Has been on Zosyn -continue for now ACUTE HYPOXEMIC RESPIRATORY FAILURE Presented with SOB /cough for 1 week and noted to have spo2 86 in RA , improved with supplemental 02 Secondary to pneumonia Steroid avoided as no significant wheeze noted and the patient is diabetic Cont wean off 02 as respiratory status improves Influenza A positive-On Flu isolation. Not been put on any Flu medications due to symptoms >1 week and no acute flu symptoms now Clinically a little better Requiring Face musk to maintain Saturation Remains stable -SOB with desaturation on ambulation May have Amiodarone Toxicity On top of Chronic lung disease Amiodarone stopped Cardiology is on board HYPERGLYCEMIA WITH TYPE 2 DM On Lantus 22 U HS Started on IV insulin protocol Pharmacy consulted for glycemic management Hb A1c 9.8 on 09/2017 Hb A1c 10.4 now Reasonably controlled [place] ON CKD STAGE 3 due to above cont IV fluid resuscitation follow PRP-renal function is improving Renal function is slightly worse today Renal function is improving HYPONATREMIA : Due to hyperglycemia cont IVF with NSS follow PRP -normalized HX OF A FLUTTER : Rate and rhythm controlled Cont amiodarone INR elevated > 4 , Coumadin on hold INR 2.4on ,remains therapeutic FULL CODE DISPOSITION ; PT/OT prior to discharge Medicine follow up with Dr Ward Vital Signs: Date Time Temp Pulse Resp B/P (MAP) Pulse Ox O2 Delivery O2 Flow Rate FiO2 12/29/17 11:38 82 16 91 Mask 9.0 12/29/17 11:15 36.4 63 16 127/66 (86) 95 Nasal Cannula 2.0 12/29/17 09:47 91 Nasal Cannula 2.0 12/29/17 08:38 64 20 124/62 (82) 91 Nasal Cannula 2.0 12/29/17 07:08 61 16 95 Nasal Cannula 2.0 12/29/17 04:41 36.6 61 18 124/62 (82) 95 Nasal Cannula 2.0 12/29/17 04:00 Nasal Cannula 2.0 12/29/17 00:00 Nasal Cannula 2.0 12/28/17 23:36 36.9 65 18 128/66 (86) 96 Nasal Cannula 2.0 12/28/17 20:00 95 Nasal Cannula 2.0 12/28/17 19:42 69 16 95 Nasal Cannula 2.0 12/28/17 19:35 36.9 73 18 143/74 (97) 93 Nasal Cannula 2.0 12/28/17 16:00 94 Nasal Cannula 2.0 12/28/17 15:33 37.2 74 18 127/69 (88) 93 Nasal Cannula 2.0 12/28/17 15:28 62 16 98 Nasal Cannula 5.0 12/28/17 13:11 98 Nasal Cannula 6.0 Lab Results: Results Past 24 Hours Test 12/28/17 11:51 12/28/17 16:05 12/28/17 20:19 12/29/17 01:53 Range/Units Bedside Hemoglobin 11.6 14.0-18.0 g/dl Bedside Hematocrit 34 42-52 % Bedside Blood Gas pH (LAB) 7.54 7.35-7.45 Bedside Blood Gas pCO2 (LAB) 36 35-46 mmHg Bedside Blood Gas pO2 (LAB) 66 80-95 mmHg Bedside Blood Gas HCO3 (LAB) 31 19-24 meq/L Bedside Blood Gas Total CO2 32 24-31 mEq/l Bedside Blood Gas Base Excess (LAB) 8.0 -9-1.8 meq/L Bedside Blood Gas O2 Saturation 95.0 90-95 % Bedside Sodium 137 135-144 mEq/L Bedside Potassium 3.9 3.3-5.0 mEq/L Bedside Glucose 259 297 288 70-99 mg/dl Test 12/29/17 07:21 Range/Units Bedside Glucose 196 70-99 mg/dl
--- NOTE | 2017-12-29 13:39 | Pharmacy Progress Note ---
Pharmacy Glycemic Short Note 2 Date of Service Dec 29, 2017. OUTPATIENT ANTIDIABETIC REGIMEN: * Lantus 22 units SQ daily at dinner * HbA1c: 10.4% (12/15/17) ASSESSMENT: * See progress note from 12/20/17 for background info, in short: * Continuing to titrate SQ basal/bolus insulin regimen in the setting of uncontrolled diabetes and steroid induced hyperglycemia * Steroids transitioned from Solu-medrol IV to Prednisone PO on 12/22. NPH was added to regimen to cover hyperglycemic effect of prednisone. * Patient has been receiving ~ 50 units of insulin per day with adequate control , but BSGs are on the lower side * 30 units of basal insulin with NPH (also covering post-prandial hyperglycemia from prednisone) * ~5 units of prandial/correctional insulin with NovoLog BSGs over the past 24 hours: * 12/26/17: 168, 146, 117, 236 * 12/27/17: 197, 45 - 54 (treatment with OJ and glucose tablet), 74, 50, 52 ( treatment with glucose tablet), 146,153 * 12/28/17: 95, 80, 259,297 * 12/29/17: 288 (at 2 AM), 196, 142 * Changes needed to regimen: * AM fasting BSG dramatically increased today. Nurse called yesterday morning and stated that the patient takes this at dinnertime. Moved Lantus to dinner and will start Lantus 5 units today if blood sugar over 150 mg/dL. Believe that patient's true Lantus dose is between 0-10 units and it appears that Lantus effects are over 2 days....therefore 5 units may be appropriate. * The patient remained on the lower side for blood sugars yesterday until dinner when blood sugar spiked to 259 mg/dL. Obviously NPH was not enough. Yesterday a scale was created and that appears effective for today.Will continue with scale as the effects today have yet to be fully seen. Most likely patient will require around 35 units of NPH with 5 units of Lantus. * For Novolog, the patient received a little coverage yesterday evening and this did not appear effective. Did not make changes for this morning as did not want to over-correct high blood sugar this morning (similar to events on 12/27/17) . PLAN FOR INPATIENT GLYCEMIC CONTROL: * Basal insulin - * Lantus 5 units SQ daily at dinner if blood sugar over 120 mg/dL starting * NPH - while on prednisone, 20-40 units SQ (20 units if blood sugar less than 100 mg/dL and 40 units if blood sugar greater than 150 mg/dL) --> consider 35 units tomorrow depending on patient's fasting blood sugar * Bolus insulin * Novolog ACHS while diet ordered and Q6 when NPO * Correction Factor: 45 mg/dL/unit * NO carbohydrate ratio... NPH is serving this purpose * Goal range: 140-180 mg/dL PLAN FOR DISCHARGE: * Current A1c (10.4%) indicates sub-optimal glycemic control as an outpatient. * CDE spoke with patient this admission and it seems that he is compliant with his Lantus. * Consider adding prandial coverage or increasing Lantus on discharge (although , patient reports reasonable fasting BSGs). * Recommend f/u with PCP for DM management after discharge to optimize A1c. * Recommend increase in SMBG after discharge until BSGs improve.
--- NOTE | 2017-12-29 14:09 | Cardiology Follow-Up ---
Subjective Subjective Date of Service: Dec 29, 2017. Pt evaluation today including: conversation w/ patient, conversation w/ family , physical exam, chart review, lab review, review of studies, review of inpatient medication list Additional Details: The patient was able to walk today a short distance. His heart rhythm has remained stable. This is the first full day he will be off the amiodarone. He has no new cardiac complaints. Problem List Medical Problems: (1) Hyperglycemia Status: Acute (2) Hypoxia Status: Acute (3) Renal insufficiency Status: Acute Objective Vital Signs Last Vital Signs Documentation Date Time Temp Pulse Resp B/P (MAP) Pulse Ox O2 Delivery O2 Flow Rate FiO2 12/29/17 12:34 94 12/29/17 12:26 Nasal Cannula 2.0 12/29/17 11:38 82 16 12/29/17 11:15 36.4 127/66 (86) Physical Exam: ENT: normal ENT inspection Neck: no adenopathy, thyroid normal, no JVD Respiratory/Chest: lungs clear, normal breath sounds Cardiovascular: regular rate, rhythm, no gallop, no JVD, no murmur Abdomen: normal bowel sounds, non tender, soft Extremities: non-tender, + pedal edema (Especially of the left upper extremity) Neurologic/Psychiatric: no motor/sensory deficits, alert, oriented x 3 Skin: normal color, warm/dry, no rash Lymphatic: no adenopathy Assessment and Plan Impression: 1. Paroxysmal atrial fibrillation 2. History of tachycardia induced cardiomyopathy 3. Influenza with secondary bacterial pneumonia 4. Possible amiodarone toxicity of the lungs Recommendations: The patient is edematous in the extremities which may be due to disuse and perhaps a low protein state. In any case, I think he should be started on a low-dose diuretic. I started him on Demadex 20 mg daily along with 10 mEq of potassium.
[2017-12-29] MEDS ORDERED: TORSEMIDE 20 MG TAB PO ONE (14:30)
[2017-12-29] MEDS: WARFARIN SOD 3 MG TAB PO SCH (15:32)
[2017-12-29] MEDS: HYDROCODONE/HOMATROPINE SYRUP 5MG/1.5MG 5ML UDP PO PRN (19:02)
[2017-12-30] VITALS (30 sets, daily range): BP systolic 101–144; BP diastolic 48–81; PULSE 57–76; TEMP 36.3–36.8; O2SAT 91–100; BMI 24.8
[2017-12-30] MEDS ORDERED: INSULIN ASPART 100 UNITS/ML 3 ML PEN SC SCH ×2 (02:00→06:30)
[2017-12-30 06:43] LABS: HEMATOCRIT 36.7 % (42-52); HEMOGLOBIN 11.5 g/dL (14.0-18.0); MEAN CELL VOLUME 93.1 fL (80-100); MEAN CORPUSCULAR HEMOGLOBIN 29.2 pg (25-34); MEAN CORPUSCULAR HGB CONC 31.3 g/dl (32-36); MEAN PLATELET VOLUME 9.5 fL (7.4-10.4); PLATELET COUNT 127 K/uL (130-400); RED CELL DISTRIBUTION WIDTH CV 14.8 % (11.5-14.5); RED CELL DISTRIBUTION WIDTH SD 50.1 fL (36.4-46.3); WHITE BLOOD COUNT 18.64 K/uL (4.8-10.8)
[2017-12-30] MEDS: LEVALBUTEROL 1.25MG/0.5ML NEB INH SCH ×5 (06:59→22:47)
[2017-12-30] MEDS: IPRATROPIUM BROMIDE NEB SOLN 0.02% 2.5 ML VIAL INH SCH ×5 (06:59→22:47)
[2017-12-30 07:10] LABS: INR 4.8 (0.9-1.1)
[2017-12-30 07:17] LABS: CALCIUM 7.5 mg/dl (8.5-10.1); CREATININE 2.14 mg/dl (0.60-1.40); POTASSIUM 3.8 mmol/L (3.5-5.1)
[2017-12-30 07:20] LABS: TOTAL PROTEIN 5.3 gm/dl (6.4-8.2)
[2017-12-30] MEDS: IPRATROPIUM BROMIDE NEB SOLN 0.02% 2.5 ML VIAL INH PRN (08:39)
[2017-12-30] MEDS: LEVALBUTEROL 1.25MG/0.5ML NEB INH PRN (08:39)
[2017-12-30] MEDS: TAMSULOSIN HCL 0.4 MG CAP PO SCH ×2 (08:59→20:50)
[2017-12-30] MEDS: GUAIFENESIN 600 MG TABCR PO SCH ×2 (08:59→20:51)
[2017-12-30] MEDS: TORSEMIDE 20 MG TAB PO SCH (08:59)
[2017-12-30] MEDS: MAGNESIUM CHLORIDE 64MG DELAYED REL TAB PO SCH (09:00)
[2017-12-30] MEDS: CHOLECALCIFEROL 1000 INTER.UNIT TAB PO SCH (09:00)
[2017-12-30] MEDS: FINASTERIDE 5 MG TAB PO SCH (09:00)
[2017-12-30] MEDS ORDERED: INSULIN HUMAN NPH SC SCH (09:00)
[2017-12-30] MEDS: PANTOprazole SOD 40 MG TAB PO SCH (09:00)
[2017-12-30] MEDS: POTASSIUM CHLORIDE 10 MEQ TABCR PO SCH (09:00)
[2017-12-30] MEDS: PIPERACILL/TAZOBAC IV 3.375 GM in DEXTROSE 5% 100ML 100 ML IV SCH ×2 (09:01→16:01)
--- NOTE | 2017-12-30 09:33 | Cardiology Follow-Up ---
Subjective Subjective Date of Service: Dec 30, 2017. Pt evaluation today including: conversation w/ patient, physical exam, chart review, lab review, review of studies, review of inpatient medication list Additional Details: This is an 87-year-old male patient who was admitted with influenza and developed a secondary bacterial pneumonia. He remains hypoxic with any type of movement. This morning he went to the bathroom and suddenly became lightheaded. The nurses had to put him in bed. His sats dropped down into the 70s. He recovered after he was in the supine relaxed position and his oxygen was increased. He is now resting comfortably. He has been off of amiodarone now for 48 hours and his heart rhythms have remained stable. His current condition along with his chest x-ray findings are concerning for ARDS. Problem List Medical Problems: (1) Hyperglycemia Status: Acute (2) Hypoxia Status: Acute (3) Renal insufficiency Status: Acute Objective Vital Signs Last Vital Signs Documentation Date Time Temp Pulse Resp B/P (MAP) Pulse Ox O2 Delivery O2 Flow Rate FiO2 12/30/17 08:40 62 15 96 Mask 15.0 12/30/17 07:20 36.5 101/60 (74) Physical Exam: General Appearance: + mild distress ENT: normal ENT inspection, hearing grossly normal (Edema has improved since yesterday.) Neck: no adenopathy, thyroid normal, no JVD Respiratory/Chest: lungs clear, normal breath sounds Cardiovascular: regular rate, rhythm, no gallop, no JVD, no murmur Abdomen: normal bowel sounds, non tender, soft Extremities: non-tender, + pedal edema (Especially of the left upper extremity) Neurologic/Psychiatric: no motor/sensory deficits, alert, oriented x 3 Skin: normal color, warm/dry, no rash Lymphatic: no adenopathy Assessment and Plan Impression: 1. Paroxysmal atrial fibrillation 2. History of tachycardia induced cardiomyopathy 3. Influenza with secondary bacterial pneumonia 4. 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 Possible ARDS 6. Creatinine is up from yesterday but most likely is his baseline. Recommendations: The patient has an ARDS type picture. He is currently on maximum therapy with steroids and antibiotics. His amiodarone has been discontinued. We are trying to manage his fluids to keep him euvolemic or on the dry side. I did note the EKG that the patient's nurse got immediately after he became hypoxic after he went to the bathroom. The T-wave inversions in the anterior precordial leads are due to the hypoxia. Medications: Current Inpatient Medications Medications (Trade) Dose Ordered Sig/Krystal Route Start Time Stop Time Status Last Admin Dose Admin Miscellaneous Information (Consult Glycemic Management Pharmacy) 1 ea UD PRN N/A 12/15/17 18:01 01/14/18 18:00 Acetaminophen (Tylenol Tab) 650 mg Q4H PRN PO 12/15/17 17:15 01/14/18 17:14 12/18/17 05:52 650 MG Al Hydrox/Mg Hydrox/Simethicone (Maalox Max Susp) 15 ml Q4H PRN PO 12/15/17 17:15 01/14/18 17:14 Magnesium Hydroxide (Milk Of Magnesia Susp) 30 ml Q12H PRN PO 12/15/17 17:15 01/14/18 17:14 Ondansetron HCl (Zofran Inj) 4 mg Q6H PRN IV 12/15/17 17:15 01/14/18 17:14 Polyethylene (Miralax Powder Packet) 17 gm DAILY PRN PO 12/15/17 17:15 01/14/18 17:14 Cholecalciferol (Vitamin D Tab) 2,000 inter.unit DAILY PO 12/16/17 09:00 01/15/18 08:59 12/30/17 09:00 2,000 INTER.UNIT Pantoprazole Sodium (Protonix Tab) 40 mg QAM PO 12/16/17 09:00 01/15/18 08:59 12/30/17 09:00 40 MG Ipratropium [place] (Atrovent 0.02% 0.5MG/2.5ML Neb) 0.5 mg Q2H PRN INH 12/15/17 21:15 01/14/18 21:14 12/30/17 08:39 0.5 MG Levalbuterol (Xopenex 1.25MG/ 0.5ML Neb) 1.25 mg Q2H PRN INH 12/15/17 21:15 01/14/18 21:14 12/30/17 08:39 1.25 MG Hydrocodone Bit/ Homatropine Methylb (Hycodan Syrup) 5 ml Q6H PRN PO 12/17/17 08:00 3/9/18 07:59 12/29/17 19:02 5 ML Magnesium Chloride (Slow-Mag Tab) 128 mg DAILY PO 12/17/17 10:45 01/16/18 10:44 12/30/17 09:00 128 MG Warfarin Sodium (Coumadin Tab) 3 mg DAILY@1600 PO 12/21/17 16:00 01/19/18 15:59 Future hold 12/29/17 15:32 3 MG Guaifenesin (Mucinex Contr Rel Tab) 600 mg Q12 PO 12/21/17 21:00 01/20/18 20:59 12/30/17 08:59 600 MG Ipratropium [place] (Atrovent 0.02% 0.5MG/2.5ML Neb) 0.5 mg Q4RWA INH 12/22/17 12:00 01/15/18 02:59 12/30/17 06:59 0.5 MG Levalbuterol (Xopenex 1.25MG/ 0.5ML Neb) 1.25 mg Q4RWA INH 12/22/17 12:00 01/15/18 02:59 12/30/17 06:59 1.25 MG Prednisone (PredniSONE TAB) 40 mg DAILY PO 12/25/17 09:00 01/21/18 08:59 12/30/17 09:00 40 MG Miconazole Nitrate (Desenex Powder) 1 appln PRN PRN EXT 12/26/17 03:30 01/25/18 03:29 Miscellaneous Information (Consult) 1 ea UD PRN N/A 12/26/17 16:00 01/25/18 15:59 Tamsulosin HCl (Flomax Cap) 0.4 mg BID PO 12/26/17 21:00 01/15/18 08:59 12/30/17 08:59 0.4 MG Finasteride (Proscar Tab) 5 mg QAM PO 12/27/17 09:00 01/26/18 08:59 12/30/17 09:00 5 MG Glucose (Glucose 40% Gel) 15-30 GRAMS 15 GRAMS... UD PRN PO 12/27/17 16:45 01/26/18 16:44 Glucose (Glucose Chew Tab) 4-8 Tablets 4 Tabl... UD PRN PO 12/27/17 16:45 4/4/18 16:44 12/27/17 16:46 4 TABS Dextrose (Dextrose 50% 50ML Syringe) 25-50ML OF 50% DW IV FOR... UD PRN IV 12/27/17 16:45 01/26/18 16:44 Glucagon (Glucagon Inj) 1 mg UD PRN SQ 12/27/17 16:45 01/26/18 16:44 Insulin Glargine (Lantus Solostar Pen) SEE PROTOCOL TEXT QDD SC 12/28/17 17:00 01/27/18 16:59 Future hold 12/29/17 17:02 5 UNITS Piperacillin Sod/ Tazobactam Sod 3.375 gm/Dextrose 115 ml @ 28.75 mls/ hr Q8H IV 12/29/17 08:00 01/05/18 07:59 12/30/17 09:01 28.75 MLS/HR Torsemide (Demadex Tab) 20 mg QAM PO 12/30/17 09:00 01/29/18 08:59 12/30/17 08:59 20 MG Potassium Chloride (Klor-Con M10) 10 meq DAILY PO 12/30/17 09:00 01/29/18 08:59 12/30/17 09:00 10 MEQ Insulin Human NPH (novoLIN-N NPH) 40 units QAM SC 12/30/17 09:00 01/29/18 08:59 12/30/17 09:03 40 UNITS Insulin Aspart (novoLOG ASPART) SLIDING SCALE DAILY@0630 SC 12/30/17 06:30 01/29/18 06:29 Insulin Aspart (novoLOG ASPART) SLIDING SCALE DAILY@1100,1630,2100 CO 12/30/17 11:00 01/29/18 10:59 Lab Results: Last 24 Hours Test 12/29/17 11:30 12/29/17 16:15 12/29/17 20:14 12/29/17 20:21 Bedside Glucose 142 mg/dl 343 mg/dl 419 mg/dl 419 mg/dl Test 12/30/17 01:59 12/30/17 06:09 12/30/17 07:31 Bedside Glucose 247 mg/dl 108 mg/dl White Blood Count 18.64 K/uL Red Blood Count 3.94 M/uL Hemoglobin 11.5 g/dL Hematocrit 36.7 % Mean Corpuscular Volume 93.1 fL Mean Corpuscular Hemoglobin 29.2 pg Mean Corpuscular Hemoglobin Concent 31.3 g/dl RDW Standard Deviation 50.1 fL RDW Coefficient of Variation 14.8 % Platelet Count 127 K/uL Mean Platelet Volume 9.5 fL Prothrombin Time 48.4 SECONDS Prothromb Time International Ratio 4.8 Sodium Level 140 mmol/L Potassium Level 3.8 mmol/L Chloride Level 105 mmol/L Carbon Dioxide Level 32 mmol/L Anion Gap 3.0 mmol/L Blood Urea Nitrogen 33 mg/dl Creatinine 2.14 mg/dl Est Creatinine Clear Calc Drug Dose 27.2 ml/min Estimated GFR () 31.3 Estimated GFR (Non- 27.0 BUN/Creatinine Ratio 15.4 Random Glucose 173 mg/dl Calcium Level 7.5 mg/dl Phosphorus Level 3.0 mg/dl Magnesium Level 2.2 mg/dl Total Bilirubin 0.4 mg/dl Aspartate Amino Transf (AST/SGOT) 18 U/L Alanine Aminotransferase (ALT/SGPT) 24 U/L Alkaline Phosphatase 107 U/L Total Protein 5.3 gm/dl Albumin 2.0 gm/dl Globulin 3.3 gm/dl Albumin/Globulin Ratio 0.6
[2017-12-30] MEDS: INSULIN ASPART 100 UNITS/ML 3 ML PEN SC SCH ×3 (11:00→20:53)
--- NOTE | 2017-12-30 11:02 | PULMONARY PROGRESS NOTE ---
DATE: 12/30/2017 The patient's evaluation today include: Conversation with patient, physical exam, chart and lab review and discussion with consultants. SUBJECTIVE: The patient is arousable, but requiring increased oxygen supplementation with a 15 liter Oxymask to maintain saturation. Apparently according to the nurses, he was on the toilet this morning, became unresponsive and was markedly desaturated in the high 70 percentile range. He has responded to diuresis with 800 mL last evening but unfortunately a rise in his creatinine was noted with no improvement in his saturation. He is now also hypotensive with blood pressure of 80/40. OBJECTIVE: VITAL SIGNS: Current vital signs, temperature 36.5, pulse 62 and irregular, respiratory rate 15, blood pressure 90/60, O2 sat 96% on a 15 liter Oxymask. SKIN: Numerous ecchymoses on the forearms. HEENT: Atraumatic, normocephalic. PERRLA. LUNGS: Distant P&A with fine rales. CARDIAC: Regular rate and rhythm. I do not appreciate a gallop. ABDOMEN: Soft, protuberant. EXTREMITIES: Left upper extremity edema greater than the other extremities, which is trace to +1. NEUROLOGIC: No obvious lateralizing signs. LABORATORY DATA: White count now 18,000, but patient is on 30 mg of prednisone. H&H 11.5 and 36.7. Glucose levels are erratic. Albumin is 2.0. Creatinine has come up to 2.14. OVERALL ASSESSMENT: An 87-year-old white male with underlying chronic obstructive lung disease and with occupational exposure develops influenza A and then superimposed staph pneumonia who had been on chronic amiodarone therapy and the possibility of amiodarone toxicity existed as well with the latter drug having been discontinued both the long half-life. I am concerned the patient is developing signs and symptoms of acute hypoxic respiratory failure and will need to be transferred to the ICU. He remains a full code and will ask the morning babysitter to make that transfer and will discuss the patient's clinical course and guarded prognosis with the family.
--- NOTE | 2017-12-30 11:52 | DIAGNOSTIC IMAGING REPORT ---
CHEST ONE VIEW PORTABLE CLINICAL HISTORY: resp failure dyspnea COMPARISON STUDY: 12/28/2017 FINDINGS: Slight improvement in aeration right upper lung. The parenchymal infiltrative process of the right upper lung is stable to perhaps minimally improved. Infiltrative process left base is similar. Appears be a focal area of round consolidation at the left base medially. IMPRESSION: Slightly improved right upper lobe infiltrate. Stable infiltrate left base. The above report was generated using voice recognition software. It may contain grammatical, syntax or spelling errors. Electronically signed by: Raul Gamez M.D. 12/30/2017 11:51 AM Dictated Date/Time: 12/30/2017 11:49 AM
--- NOTE | 2017-12-30 14:01 | Pharmacy Progress Note ---
Glycemic Control Progress Note Date of Service Dec 30, 2017. Scope Glycemic Pharmacist consulted for glycemic control to write orders per [facility] inpatient glycemic control protocol. Objective Accuchecks BSG (last 24hrs): Test 12/29/17 16:15 12/29/17 20:14 12/29/17 20:21 12/30/17 01:59 Bedside Glucose 343 mg/dl (70-99) 419 mg/dl (70-99) 419 mg/dl (70-99) 247 mg/dl (70-99) Test 12/30/17 06:09 12/30/17 07:31 12/30/17 08:33 12/30/17 11:04 Random Glucose 173 mg/dl (70-99) Bedside Glucose 108 mg/dl (70-99) 101 mg/dl (70-99) 144 mg/dl (70-99) HbA1c: Test 12/15/17 15:40 Hemoglobin A1c 10.4 % (4.5-5.6) H Recent Pertinent Medications The patient is currently receiving: * Basal insulin: Lantus 5 units every 24 hours with dinner; NPH 40 units w/ breakfast * Correctional Insulin: Novolog Correction per scale ACHS Goal Range: Low 140 mg/dL - High 180 mg/dL Correction Factor: 40 mg/dL/unit * Prandial insulin: Per carb ratio of 1 unit per 15 grams CHO consumed with lunch and dinner only Outpatient Anti-Diabetic Meds Lantus 22 units SQ daily Assessment & Plan ASSESSMENT: 12/30/17 * Type 2 diabetic x-anastasiia to ICU today for increasing O2 requirements, hypotension and unresponsive episode this AM. There is concern for worsening hypoxemic resp failure. * Patient has dx of influenza A with superimposed MSSA pneumonia in addition to a h/o COPD. There are also concerns for amiodarone pulm toxicity. * Patient had been receiving once daily prednisone which has now been changed to Solu-Medrol 40mg Q 12 hours * He had received Solu-Medrol 40mg IV Q 12 hours earlier this admission and it appears that he required ~20-25 units of Lantus per day along with ~50 units of rapid acting insulin to cover BSG elevations and meals (~70-75 units/day when tolerating a diet) * Will d/c NPH as this will insulin will not work as well for Q 12 hour Solu- Medrol administration. Will revert back to Lantus for basal needs and more aggressive CR for meal-time coverage. Implement these changes this evening when the effects of this AM's dose of NPH are minimal. PLAN FOR INPATIENT GLYCEMIC CONTROL: * DC NPH insulin * Lantus 15 units Q AM + 10 units SQ Q PM * Continuing correction factor to 15 mg/dl/unit * Changing carb ratio to 1 unit per 5 grams CHO consumed * Changing goal range to Low 120 mg/dL - High 150 mg/dL * Add BSG checks at 0000 and 0400 * If BSG sustained above 220, begin IV insulin drip per severe stress protocol, goal range 120-200 * Reassess insulin doses with each step down in steroid dose * Please note that the plan above was derived based on current level of insulin resistance and hospital stress. These recommendations are appropriate for inpatient admission only. Plan of care upon discharge will need to be reassessed to avoid potential outpatient hypo/hyperglycemia. Thank you.
--- NOTE | 2017-12-30 14:02 | Pharmacy Progress Note ---
Pharmacy Glycemic Short Note 2 Date of Service Dec 30, 2017. OUTPATIENT ANTIDIABETIC REGIMEN: * Lantus 22 units SQ daily at dinner * HbA1c: 10.4% (12/15/17) ASSESSMENT: * See progress note from 12/20/17 for background info, in short: * Continuing to titrate SQ basal/bolus insulin regimen in the setting of uncontrolled diabetes and steroid induced hyperglycemia * Steroids transitioned from Solu-medrol IV to Prednisone PO on 12/22. Dose decreased to 30 mg effective 12/31/17. NPH was added to regimen to cover hyperglycemic effect of prednisone. * Patient has been receiving ~ 50 units of insulin per day with adequate control , but BSGs are on the lower side * 40 units of basal insulin with NPH (also covering post-prandial hyperglycemia from prednisone) plus 5 units of Lantus * ~18 units of prandial/correctional insulin with NovoLog BSGs over the past 24 hours: * 12/26/17: 168, 146, 117, 236 * 12/27/17: 197, 45 - 54 (treatment with OJ and glucose tablet), 74, 50, 52 ( treatment with glucose tablet), 146,153 * 12/28/17: 95, 80, 259, 297 * 12/29/17: 288 (at 2 AM), 196, 142, 343, 419 * 12/30/17: 247 (at 2 AM), 108 * Changes needed to regimen: * AM fasting BSG dramatically decreased today by 90 points. This fasting, however, is improved compared to when the patient received 10 units of Lantus. Will continue Lantus 5 units daily at dinnertime (the time patient takes Lantus at home). * The patient remained on the lower side for blood sugars yesterday until dinner when blood sugar spiked to 343 mg/dL and then 419 mg/dL. The effects of NPH appear to decrease substantially by bedtime and even dinner. Therefore, moved NPH to lunchtime. Prednisone dose decreased tomorrow to 30 mg. Decreased NPH to 30 units. * For Novolog, the patient received a little coverage yesterday until the evening when he received 15 units. The patient's lunch blood sugar always appears to be the lowest. But then blood sugars increase after this. Added slight carbohydrate ratio of 15 for lunch onwards. * The patient was transferred to the ICU secondary to worsening respiratory function. Solu-Medrol 40 mg IV q12 hours was started. Please see Earl Stevens's note for changes made after ICU transfer. PLAN FOR INPATIENT GLYCEMIC CONTROL: * Basal insulin - * Lantus 5 units SQ daily at dinner * NPH - while on prednisone, 30 units starting tomorrow for prednisone 30 mg * Bolus insulin * Novolog ACHS while diet ordered and Q6 when NPO * Correction Factor: 40 mg/dL/unit * Carbohydrate ratio of 1 unit per 15 grams of carbs consumed for lunch, dinner , and bedtime * Goal range: 140-180 mg/dL PLAN FOR DISCHARGE: * Current A1c (10.4%) indicates sub-optimal glycemic control as an outpatient. * CDE spoke with patient this admission and it seems that he is compliant with his Lantus. * Consider adding prandial coverage or increasing Lantus on discharge (although , patient reports reasonable fasting BSGs). * Recommend f/u with PCP for DM management after discharge to optimize A1c. * Recommend increase in SMBG after discharge until BSGs improve.
--- NOTE | 2017-12-30 17:10 | Progress Note ---
Internal Med Progress Note Date of Service: Dec 30, 2017. Provider Documentation: SUBJECTIVE: The patient was seen and examined Cough for 1 week ,no fever,chills or Body aches with it Remains very weak and lethargic Has not had any significant improvement for the last weak Has had CT of the Chest and is under Pulmonary and cardiology care SOB with Desaturation with minimal activity Very slow improvement -denies any symptoms except generalized weakness 3/8 Condition got worse this AM Very SOB with decreased saturation Was evaluated by Pulmonary and advised to transfer to ICU OBJECTIVE: Vital Signs-as noted below Exam: General-Very SOB at rest with lethargy Eyes-normal ENT-normal Neck-supple Lungs-decreased breath sound bilaterally Moderate crackles bilaterally at the bases more on the left than the right Heart-Regular,no murmur Abdomen-Benign,no masses,bowel sound present Extremities-trace edema bilaterally Neuro-AAOx3 Lab data as noted below. ASSESSMENT & PLAN: Assessment and Plan ACUTE HYPOXEMIC RESPIRATORY FAILURE-Progressing towards ARDS Presented with SOB /cough for 1 week and noted to have spo2 86 in RA , improved with supplemental 02 Secondary to pneumonia Steroid avoided as no significant wheeze noted and the patient is diabetic Cont wean off 02 as respiratory status improves Influenza A positive-On Flu isolation. Not been put on any Flu medications due to symptoms >1 week and no acute flu symptoms now Clinically a little better Requiring Face musk to maintain Saturation Remains stable -SOB with desaturation on ambulation Very SOB this AM Will continue Solumedrol and transfer to ICU Discussed with the Pulmonary and Son BILATERAL MULTILOBAR PNEUMONIA Community acquired pneumonia Started on IV Zosyn ( for pseudomonal coverage in setting of Type 2 DM / hyperglycemia ) Blood CULTURE-NEGATIVE and sputum culture :Staph Aureus.MSSA Received Vancomycin ,Changed to Ceftriaxone and Doxycycline Solumedrol added and now on Prednisone Pulmonary consulted-appreciate input Has been on Zosyn -continue for now 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 Amiodarone stopped Cardiology is on board HYPERGLYCEMIA WITH TYPE 2 DM On Lantus 22 U HS Started on IV insulin protocol Pharmacy consulted for glycemic management Hb A1c 9.8 on 09/2017 Hb A1c 10.4 now Reasonably controlled [place] ON CKD STAGE 3 due to above cont IV fluid resuscitation follow PRP-renal function is improving Renal function is slightly worse today Renal function is wore today HYPONATREMIA : Due to hyperglycemia cont IVF with NSS follow PRP -normalized HX OF A FLUTTER : Rate and rhythm controlled Cont amiodarone INR elevated > 4 , Coumadin on hold INR 2.4on ,remains therapeutic INR a little high today Hold Coumadin for today FULL CODE DISPOSITION ; PT/OT prior to discharge Medicine follow up with Dr Ward Vital Signs: Date Time Temp Pulse Resp B/P (MAP) Pulse Ox O2 Delivery O2 Flow Rate FiO2 12/30/17 16:00 36.8 12/30/17 16:00 98 Nasal Cannula 3.0 12/30/17 15:42 71 16 98 Nasal Cannula 6.0 12/30/17 14:30 76 21 100 12/30/17 14:00 70 22 112/54 (74) 99 12/30/17 13:53 74 21 121/53 (72) 100 12/30/17 13:30 76 22 98 12/30/17 13:00 71 22 97 12/30/17 12:42 74 20 102/48 (64) 95 12/30/17 12:30 76 21 94 12/30/17 11:30 36.3 74 16 96 15.0 12/30/17 11:19 74 16 96 Mask 15.0 12/30/17 10:57 36.3 64 20 105/58 (74) 96 Oxymask 15.0 12/30/17 08:40 62 15 96 Mask 15.0 12/30/17 08:00 Nasal Cannula 12/30/17 07:33 91 Nasal Cannula 2.0 12/30/17 07:20 36.5 58 18 101/60 (74) 97 Nasal Cannula 2.0 12/30/17 06:59 57 16 96 Nasal Cannula 2.0 12/30/17 04:36 36.5 60 18 107/62 (77) 95 2.0 12/30/17 04:00 Nasal Cannula 2.0 12/30/17 00:00 Nasal Cannula 2.0 12/29/17 22:42 36.3 66 16 104/61 (75) 97 Nasal Cannula 2.0 12/29/17 21:44 70 115/55 (75) 94 Nasal Cannula 2.0 12/29/17 20:00 95 Nasal Cannula 2.0 12/29/17 19:57 70 16 95 Nasal Cannula 2.0 12/29/17 19:34 36.9 103 20 172/68 (102) 92 Room Air Lab Results: Results Past 24 Hours Test 12/29/17 20:14 12/29/17 20:21 12/30/17 01:59 12/30/17 06:09 Range/Units Bedside Glucose 419 419 247 70-99 mg/dl White Blood Count 18.64 4.8-10.8 K/uL Red Blood Count 3.94 4.7-6.1 M/uL Hemoglobin 11.5 14.0-18.0 g/dL Hematocrit 36.7 42-52 % Mean Corpuscular Volume 93.1 80-100 fL Mean Corpuscular Hemoglobin 29.2 25-34 pg Mean Corpuscular Hemoglobin Concent 31.3 32-36 g/dl RDW Standard Deviation 50.1 36.4-46.3 fL RDW Coefficient of Variation 14.8 11.5-14.5 % Platelet Count 127 130-400 K/uL Mean Platelet Volume 9.5 7.4-10.4 fL Prothrombin Time 48.4 9.0-12.0 SECONDS Prothromb Time International Ratio 4.8 0.9-1.1 Sodium Level 140 136-145 mmol/L Potassium Level 3.8 3.5-5.1 mmol/L Chloride Level 105 98-107 mmol/L Carbon Dioxide Level 32 21-32 mmol/L Anion Gap 3.0 3-11 mmol/L Blood Urea Nitrogen 33 7-18 mg/dl Creatinine 2.14 0.60-1.40 mg/dl Est Creatinine Clear Calc Drug Dose 27.2 ml/min Estimated GFR () 31.3 Estimated GFR (Non- 27.0 BUN/Creatinine Ratio 15.4 10-20 Random Glucose 173 70-99 mg/dl Calcium Level 7.5 8.5-10.1 mg/dl Phosphorus Level 3.0 2.5-4.9 mg/dl Magnesium Level 2.2 1.8-2.4 mg/dl Total Bilirubin 0.4 0.2-1 mg/dl Aspartate Amino Transf (AST/SGOT) 18 15-37 U/L Alanine Aminotransferase (ALT/SGPT) 24 12-78 U/L Alkaline Phosphatase 107 45-117 U/L Total Protein 5.3 6.4-8.2 gm/dl Albumin 2.0 3.4-5.0 gm/dl Globulin 3.3 2.5-4.0 gm/dl Albumin/Globulin Ratio 0.6 0.9-2 Test 12/30/17 07:31 12/30/17 08:33 12/30/17 11:04 Range/Units Bedside Glucose 108 101 144 70-99 mg/dl
--- NOTE | 2017-12-30 19:06 | Critical Care Consultation ---
Critical Care Consultation Date of Consultation: Dec 30, 2017. Attending Physician: Patricia Mcallister M.D. Reason for Consultation: Respiratory failure History of Present Illness This is an 87 year old male with h/o CKD, DM2, CHF, a-flutter, admitted 16 days ago for influenza A, complicated by MSSA pneumonia. Patient made a very slow recovery so far, still reliant on supplemental oxygen. This morning he had an attack of hypoxia, unresponsiveness, bradycardia. Eventually he improved, he is back on nasal cannula, sitting comfortably in the chair Past Medical/Surgical History A-flutter DM-2 HTN Social History Smoking Status: Former Smoker Drug Use: none Marital Status: Housing Status: lives with significant other Occupation Status: retired Allergies Coded Allergies: No Known Allergies (Unverified , 05/19/13) Home Medications Scheduled Amiodarone HCl (Amiodarone HCl), 200 MG PO DAILY Cholecalciferol (Vitamin D3), 2,000 UNITS PO DAILY Insulin Glargine (Lantus), 22 UNITS SC DAILY Lisinopril (Zestril), 20 MG PO BID Omeprazole (Prilosec), 20 MG PO DAILY Tamsulosin Hcl (Flomax), 0.4 MG PO BID Warfarin Sod (Coumadin), 2.5-5 MG PO UD Current Inpatient Medications Current Inpatient Medications Medications (Trade) Dose Ordered Sig/Krystal Route Start Time Stop Time Status Last Admin Dose Admin Miscellaneous Information (Consult Glycemic Management Pharmacy) 1 ea UD PRN N/A 12/15/17 18:01 01/14/18 18:00 Acetaminophen (Tylenol Tab) 650 mg Q4H PRN PO 12/15/17 17:15 01/14/18 17:14 12/18/17 05:52 650 MG Al Hydrox/Mg Hydrox/Simethicone (Maalox Max Susp) 15 ml Q4H PRN PO 12/15/17 17:15 01/14/18 17:14 Magnesium Hydroxide (Milk Of Magnesia Susp) 30 ml Q12H PRN PO 12/15/17 17:15 01/14/18 17:14 Ondansetron HCl (Zofran Inj) 4 mg Q6H PRN IV 12/15/17 17:15 01/14/18 17:14 Polyethylene (Miralax Powder Packet) 17 gm DAILY PRN PO 12/15/17 17:15 01/14/18 17:14 Cholecalciferol (Vitamin D Tab) 2,000 inter.unit DAILY PO 12/16/17 09:00 01/15/18 08:59 12/30/17 09:00 2,000 INTER.UNIT Pantoprazole Sodium (Protonix Tab) 40 mg QAM PO 12/16/17 09:00 01/15/18 08:59 12/30/17 09:00 40 MG Ipratropium [place] (Atrovent 0.02% 0.5MG/2.5ML Neb) 0.5 mg Q2H PRN INH 12/15/17 21:15 01/14/18 21:14 12/30/17 08:39 0.5 MG Levalbuterol (Xopenex 1.25MG/ 0.5ML Neb) 1.25 mg Q2H PRN INH 12/15/17 21:15 01/14/18 21:14 12/30/17 08:39 1.25 MG Hydrocodone Bit/ Homatropine Methylb (Hycodan Syrup) 5 ml Q6H PRN PO 12/17/17 08:00 12/31/17 07:59 12/29/17 19:02 5 ML Magnesium Chloride (Slow-Mag Tab) 128 mg DAILY PO 12/17/17 10:45 01/16/18 10:44 12/30/17 09:00 128 MG Warfarin Sodium (Coumadin Tab) 3 mg DAILY@1600 PO 12/21/17 16:00 01/19/18 15:59 Future Hold 12/29/17 15:32 3 MG Guaifenesin (Mucinex Contr Rel Tab) 600 mg Q12 PO 12/21/17 21:00 01/20/18 20:59 12/30/17 08:59 600 MG Ipratropium [place] (Atrovent 0.02% 0.5MG/2.5ML Neb) 0.5 mg Q4RWA INH 12/22/17 12:00 01/15/18 02:59 12/30/17 15:42 0.5 MG Levalbuterol (Xopenex 1.25MG/ 0.5ML Neb) 1.25 mg Q4RWA INH 12/22/17 12:00 01/15/18 02:59 3/8/18 15:42 1.25 MG Miconazole Nitrate (Desenex Powder) 1 appln PRN PRN EXT 12/26/17 03:30 01/25/18 03:29 Miscellaneous Information (Consult) 1 ea UD PRN N/A 12/26/17 16:00 01/25/18 15:59 Tamsulosin HCl (Flomax Cap) 0.4 mg BID PO 12/26/17 21:00 01/15/18 08:59 12/30/17 08:59 0.4 MG Finasteride (Proscar Tab) 5 mg QAM PO 12/27/17 09:00 01/26/18 08:59 12/30/17 09:00 5 MG Glucose (Glucose 40% Gel) 15-30 GRAMS 15 GRAMS... UD PRN PO 12/27/17 16:45 01/26/18 16:44 Glucose (Glucose Chew Tab) 4-8 Tablets 4 Tabl... UD PRN PO 12/27/17 16:45 01/26/18 16:44 12/27/17 16:46 4 TABS Dextrose (Dextrose 50% 50ML Syringe) 25-50ML OF 50% DW IV FOR... UD PRN IV 12/27/17 16:45 01/26/18 16:44 Glucagon (Glucagon Inj) 1 mg UD PRN SQ 12/27/17 16:45 01/26/18 16:44 Piperacillin Sod/ Tazobactam Sod 3.375 gm/Dextrose 115 ml @ 28.75 mls/ hr Q8H IV 12/29/17 08:00 01/05/18 07:59 12/30/17 16:01 28.75 MLS/HR Torsemide (Demadex Tab) 20 mg QAM PO 12/30/17 09:00 01/29/18 08:59 12/30/17 08:59 20 MG Potassium Chloride (Klor-Con M10) 10 meq DAILY PO 12/30/17 09:00 01/29/18 08:59 12/30/17 09:00 10 MEQ Insulin Aspart (novoLOG ASPART) SLIDING SCALE DAILY@1100,1630,2100 SC 12/30/17 11:00 12/30/17 23:00 12/30/17 17:47 4 UNITS Methylprednisolone Sodium Succinate 40 mg/Syringe 0.64 ml @ 1.5 mls/min BID IV 12/30/17 21:00 01/29/18 20:59 Insulin Aspart (novoLOG ASPART) SLIDING SCALE TODAY@0000,0400 SC 12/31/17 00:00 12/31/17 04:01 Insulin Aspart (novoLOG ASPART) SLIDING SCALE ACHS SC 12/31/17 06:45 01/30/18 06:44 Insulin Glargine (Lantus Solostar Pen) 10 units HS SC 12/30/17 21:00 01/29/18 20:59 Insulin Glargine (Lantus Solostar Pen) 15 units QAM SC 12/31/17 09:00 01/30/18 08:59 Miscellaneous Information (Pending Order) 1 ea ACHS N/A 12/30/17 16:00 01/29/18 15:59 Review of Systems Per HPI, all other systems reviewed and negative Physical Exam Date Time Temp Pulse Resp B/P (MAP) Pulse Ox O2 Delivery O2 Flow Rate FiO2 12/30/17 17:01 73 21 104/81 (90) 95 12/30/17 16:01 75 20 135/66 (103) 98 12/30/17 16:00 36.8 12/30/17 16:00 98 Nasal Cannula 3.0 12/30/17 15:42 71 16 98 Nasal Cannula 6.0 12/30/17 15:00 73 20 117/53 (81) 98 12/30/17 14:30 76 21 100 12/30/17 14:00 70 22 112/54 (74) 99 12/30/17 13:53 74 21 121/53 (72) 100 12/30/17 13:30 76 22 98 12/30/17 13:00 71 22 97 12/30/17 12:42 74 20 102/48 (64) 95 12/30/17 12:30 76 21 94 12/30/17 11:30 36.3 74 16 96 15.0 12/30/17 11:19 74 16 96 Mask 15.0 12/30/17 10:57 36.3 64 20 105/58 (74) 96 Oxymask 15.0 12/30/17 08:40 62 15 96 Mask 15.0 12/30/17 08:00 Nasal Cannula 12/30/17 07:33 91 Nasal Cannula 2.0 12/30/17 07:20 36.5 58 18 101/60 (74) 97 Nasal Cannula 2.0 12/30/17 06:59 57 16 96 Nasal Cannula 2.0 12/30/17 04:36 36.5 60 18 107/62 (77) 95 2.0 12/30/17 04:00 Nasal Cannula 2.0 12/30/17 00:00 Nasal Cannula 2.0 12/29/17 22:42 36.3 66 16 104/61 (75) 97 Nasal Cannula 2.0 12/29/17 21:44 70 115/55 (75) 94 Nasal Cannula 2.0 12/29/17 20:00 95 Nasal Cannula 2.0 12/29/17 19:57 70 16 95 Nasal Cannula 2.0 12/29/17 19:34 36.9 103 20 172/68 (102) 92 Room Air general: Elderly male, NAD HEENT: NC/AT Lungs: Mostly clear to auscultation, coarse over the right lung, no rhonchi or wheezing CVS: S1S2 reg Abd: Soft Ext: No edema 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, no deficit Laboratory Results Last 24 Hours Test 12/29/17 20:14 12/29/17 20:21 12/30/17 01:59 12/30/17 06:09 Bedside Glucose 419 mg/dl 419 mg/dl 247 mg/dl White Blood Count 18.64 K/uL Red Blood Count 3.94 M/uL Hemoglobin 11.5 g/dL Hematocrit 36.7 % Mean Corpuscular Volume 93.1 fL Mean Corpuscular Hemoglobin 29.2 pg Mean Corpuscular Hemoglobin Concent 31.3 g/dl RDW Standard Deviation 50.1 fL RDW Coefficient of Variation 14.8 % Platelet Count 127 K/uL Mean Platelet Volume 9.5 fL Prothrombin Time 48.4 SECONDS Prothromb Time International Ratio 4.8 Sodium Level 140 mmol/L Potassium Level 3.8 mmol/L Chloride Level 105 mmol/L Carbon Dioxide Level 32 mmol/L Anion Gap 3.0 mmol/L Blood Urea Nitrogen 33 mg/dl Creatinine 2.14 mg/dl Est Creatinine Clear Calc Drug Dose 27.2 ml/min Estimated GFR () 31.3 Estimated GFR (Non- 27.0 BUN/Creatinine Ratio 15.4 Random Glucose 173 mg/dl Calcium Level 7.5 mg/dl Phosphorus Level 3.0 mg/dl Magnesium Level 2.2 mg/dl Total Bilirubin 0.4 mg/dl Aspartate Amino Transf (AST/SGOT) 18 U/L Alanine Aminotransferase (ALT/SGPT) 24 U/L Alkaline Phosphatase 107 U/L Total Protein 5.3 gm/dl Albumin 2.0 gm/dl Globulin 3.3 gm/dl Albumin/Globulin Ratio 0.6 Test 12/30/17 07:31 12/30/17 08:33 12/30/17 11:04 Bedside Glucose 108 mg/dl 101 mg/dl 144 mg/dl Diagnostic Results Respiratory failure secondary to multi-lobar MSSA pneumonia, with RUL predominance, post influenza A A-flutter DM-2 CKD Had transient decompensation this AM, probably mucus plugging with vagal episode Plan: Continue current antibiotic treatment for now, seems to have mild radiological improvement Continue Mucinex Supplemental O2 Bronchodilators On a steroid taper If he deteriorates again, may require intubation, discussed with the patient and family Discontinue diuretics for now, has more decline in renal function Obtain procalcitonin in AM. Also check BNP Hold Coumadin today, INR supratherapeutic today. No evidence of bleeding Critical care time spent with patient, family, reviewing chart, discussing with consultants, greater than 30 minutes
[2017-12-30] MEDS: METHYLPREDNISOLONE IV 40 MG in SYRINGE 0 ML IV SCH (20:50)
[2017-12-30] MEDS: INSULIN GLARGINE SOLOSTAR 100 UNITS/ML 3 ML PEN SC SCH (20:53)
[2017-12-31] VITALS (38 sets, daily range): BP systolic 109–158; BP diastolic 42–72; PULSE 64–83; TEMP 36.6–36.8; O2SAT 80–100
[2017-12-31] MEDS: PIPERACILL/TAZOBAC IV 3.375 GM in DEXTROSE 5% 100ML 100 ML IV SCH ×3 (00:01→21:34)
[2017-12-31] MEDS ORDERED: NURSING VERBAL MED ORDER ONE (00:15)
[2017-12-31] MEDS ORDERED: NovoLIN R BOLUS FROM BAG IV ONE (00:30)
[2017-12-31] MEDS: INSULIN REGULAR 250 UNITS in SODIUM CHLORIDE 0.9% 250ML 250 ML IV SCH (00:48)
[2017-12-31 06:24] LABS: BASO % 0.1 %; BASO ABS # 0.02 K/uL (0-0.2); EOS ABS # 0.01 K/uL (0-0.5); HEMOGLOBIN 11.6 g/dL (14.0-18.0); IG# 0.22 K/uL (0.00-0.02); LYMPH ABS # 0.62 K/uL (1.2-3.4); MEAN CELL VOLUME 91.4 fL (80-100); MEAN CORPUSCULAR HEMOGLOBIN 30.3 pg (25-34); MEAN CORPUSCULAR HGB CONC 33.1 g/dl (32-36); MEAN PLATELET VOLUME 8.9 fL (7.4-10.4); MONO % 2.9 %; MONO ABS # 0.61 K/uL (0.11-0.59); NEUT ABS # 19.51 K/uL (1.4-6.5); PLATELET COUNT 125 K/uL (130-400); RED CELL DISTRIBUTION WIDTH SD 49.8 fL (36.4-46.3); WHITE BLOOD COUNT 20.99 K/uL (4.8-10.8)
[2017-12-31 06:35] LABS: INR 5.1 (0.9-1.1)
[2017-12-31] MEDS ORDERED: INSULIN ASPART 100 UNITS/ML 3 ML PEN SC SCH ×2 (06:45)
[2017-12-31 06:53] LABS: CALCIUM 7.6 mg/dl (8.5-10.1); CREATININE 2.22 mg/dl (0.60-1.40); POTASSIUM 3.9 mmol/L (3.5-5.1)
[2017-12-31 06:58] LABS: TOTAL PROTEIN 5.5 gm/dl (6.4-8.2)
[2017-12-31] MEDS ORDERED: INSULIN GLARGINE SOLOSTAR 100 UNITS/ML 3 ML PEN SC SCH (09:00)
[2017-12-31] MEDS: TORSEMIDE 20 MG TAB PO SCH (09:28)
[2017-12-31] MEDS: POTASSIUM CHLORIDE 10 MEQ TABCR PO SCH (09:29)
[2017-12-31] MEDS: GUAIFENESIN 600 MG TABCR PO SCH ×2 (09:29→21:34)
[2017-12-31] MEDS: TAMSULOSIN HCL 0.4 MG CAP PO SCH ×2 (09:29→21:35)
[2017-12-31] MEDS: MAGNESIUM CHLORIDE 64MG DELAYED REL TAB PO SCH (09:30)
[2017-12-31] MEDS: PANTOprazole SOD 40 MG TAB PO SCH (09:30)
[2017-12-31] MEDS: FINASTERIDE 5 MG TAB PO SCH (09:30)
[2017-12-31] MEDS: CHOLECALCIFEROL 1000 INTER.UNIT TAB PO SCH (09:31)
[2017-12-31] MEDS: INSULIN ASPART 100 UNITS/ML 3 ML PEN SC SCH ×4 (09:36→21:39)
[2017-12-31] MEDS: METHYLPREDNISOLONE IV 40 MG in SYRINGE 0 ML IV SCH ×2 (09:38→21:34)
--- NOTE | 2017-12-31 10:26 | Cardiology Follow-Up ---
Subjective Subjective Date of Service: Dec 31, 2017. Pt evaluation today including: conversation w/ patient, physical exam, chart review, lab review, review of studies, review of inpatient medication list Additional Details: The patient was moved to the ICU last evening for better observation. He is hypoxic with any type of activity, but remains comfortable when he is quietly resting in bed. He actually looks better today. His edema of his extremities has markedly improved after the start of torsemide. His oxygen saturations at least at rest seem to have improved as well. He has no new complaints today. Problem List Medical Problems: (1) Hyperglycemia Status: Acute (2) Hypoxia Status: Acute (3) Renal insufficiency Status: Acute Objective Vital Signs Last Vital Signs Documentation Date Time Temp Pulse Resp B/P (MAP) Pulse Ox O2 Delivery O2 Flow Rate FiO2 12/31/17 08:00 36.8 69 24 131/56 (81) 99 Room Air 12/31/17 08:00 3.0 Physical Exam: General Appearance: + mild distress ENT: normal ENT inspection, hearing grossly normal (Edema has improved since yesterday.) Neck: no adenopathy, thyroid normal, no JVD Respiratory/Chest: no respiratory distress, + rhonchi (Scattered rhonchi) Cardiovascular: regular rate, rhythm, no gallop, no JVD, no murmur Abdomen: normal bowel sounds, non tender, soft Extremities: non-tender, + pedal edema (Especially of the left upper extremity) Neurologic/Psychiatric: no motor/sensory deficits, alert, oriented x 3 Skin: normal color, warm/dry, no rash Lymphatic: no adenopathy Assessment and Plan Impression: 1. Paroxysmal atrial fibrillation 2. History of tachycardia induced cardiomyopathy 3. Influenza with secondary bacterial pneumonia 4. 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 Possible ARDS 6. Creatinine is up from yesterday but most likely is his baseline. Recommendations: The patient looks marginally better today and I am hopeful that he may have turned the corner. I would continue his current therapy. Medications: Current Inpatient Medications Medications (Trade) Dose Ordered Sig/Krystal Route Start Time Stop Time Status Last Admin Dose Admin Miscellaneous Information (Consult Glycemic Management Pharmacy) 1 ea UD PRN N/A 12/15/17 18:01 01/14/18 18:00 Acetaminophen (Tylenol Tab) 650 mg Q4H PRN PO 12/15/17 17:15 01/14/18 17:14 12/18/17 05:52 650 MG Al Hydrox/Mg Hydrox/Simethicone (Maalox Max Susp) 15 ml Q4H PRN PO 12/15/17 17:15 01/14/18 17:14 Magnesium Hydroxide (Milk Of Magnesia Susp) 30 ml Q12H PRN PO 12/15/17 17:15 01/14/18 17:14 Ondansetron HCl (Zofran Inj) 4 mg Q6H PRN IV 12/15/17 17:15 01/14/18 17:14 Polyethylene (Miralax Powder Packet) 17 gm DAILY PRN PO 12/15/17 17:15 01/14/18 17:14 Cholecalciferol (Vitamin D Tab) 2,000 inter.unit DAILY PO 12/16/17 09:00 01/15/18 08:59 12/31/17 09:31 2,000 INTER.UNIT Pantoprazole Sodium (Protonix Tab) 40 mg QAM PO 12/16/17 09:00 01/15/18 08:59 12/31/17 09:30 40 MG Ipratropium [place] (Atrovent 0.02% 0.5MG/2.5ML Neb) 0.5 mg Q2H PRN INH 12/15/17 21:15 01/14/18 21:14 12/30/17 08:39 0.5 MG Levalbuterol (Xopenex 1.25MG/ 0.5ML Neb) 1.25 mg Q2H PRN INH 12/15/17 21:15 01/14/18 21:14 12/30/17 08:39 1.25 MG Magnesium Chloride (Slow-Mag Tab) 128 mg DAILY PO 12/17/17 10:45 01/16/18 10:44 12/31/17 09:30 128 MG Warfarin Sodium (Coumadin Tab) 3 mg DAILY@1600 PO 12/21/17 16:00 01/19/18 15:59 Future Hold 12/29/17 15:32 3 MG Guaifenesin (Mucinex Contr Rel Tab) 600 mg Q12 PO 12/21/17 21:00 01/20/18 20:59 12/31/17 09:29 600 MG Ipratropium [place] (Atrovent 0.02% 0.5MG/2.5ML Neb) 0.5 mg Q4RWA INH 12/22/17 12:00 01/15/18 02:59 12/30/17 22:47 0.5 MG Levalbuterol (Xopenex 1.25MG/ 0.5ML Neb) 1.25 mg Q4RWA INH 12/22/17 12:00 01/15/18 02:59 12/30/17 22:47 1.25 MG Miconazole Nitrate (Desenex Powder) 1 appln PRN PRN EXT 12/26/17 03:30 01/25/18 03:29 Miscellaneous Information (Consult) 1 ea UD PRN N/A 12/26/17 16:00 01/25/18 15:59 Tamsulosin HCl (Flomax Cap) 0.4 mg BID PO 12/26/17 21:00 01/15/18 08:59 12/31/17 09:29 0.4 MG Finasteride (Proscar Tab) 5 mg QAM PO 12/27/17 09:00 01/26/18 08:59 12/31/17 09:30 5 MG Glucose (Glucose 40% Gel) 15-30 GRAMS 15 GRAMS... UD PRN PO 12/27/17 16:45 01/26/18 16:44 Glucose (Glucose Chew Tab) 4-8 Tablets 4 Tabl... UD PRN PO 12/27/17 16:45 01/26/18 16:44 12/27/17 16:46 4 TABS Dextrose (Dextrose 50% 50ML Syringe) 25-50ML OF 50% DW IV FOR... UD PRN IV 12/27/17 16:45 01/26/18 16:44 Glucagon (Glucagon Inj) 1 mg UD PRN SQ 12/27/17 16:45 01/26/18 16:44 Piperacillin Sod/ Tazobactam Sod 3.375 gm/Dextrose 115 ml @ 28.75 mls/ hr Q8H IV 12/29/17 08:00 01/05/18 07:59 12/31/17 00:01 28.75 MLS/HR Torsemide (Demadex Tab) 20 mg QAM PO 12/30/17 09:00 01/29/18 08:59 12/31/17 09:28 20 MG Potassium Chloride (Klor-Con M10) 10 meq DAILY PO 12/30/17 09:00 01/29/18 08:59 12/31/17 09:29 10 MEQ Methylprednisolone Sodium Succinate 40 mg/Syringe 0.64 ml @ 1.5 mls/min BID IV 12/30/17 21:00 01/29/18 20:59 12/31/17 09:38 1.5 MLS/MIN Insulin Glargine (Lantus Solostar Pen) 10 units HS RI 12/30/17 21:00 01/29/18 20:59 Future hold 12/30/17 20:53 10 UNITS Insulin Glargine (Lantus Solostar Pen) 15 units QAM [place] 12/31/17 09:00 01/30/18 08:59 Future hold 12/31/17 09:33 15 UNITS Insulin Human Regular 250 units/ Sodium Chloride 252.5 ml @ 0 mls/hr Q24H IV 12/31/17 00:30 01/30/18 00:29 12/31/17 00:48 3.1 MLS/HR Insulin Aspart (novoLOG ASPART) SLIDING SCALE [facility] 12/31/17 08:00 01/30/18 07:59 12/31/17 09:36 9 UNITS Lab Results: Last 24 Hours Test 12/30/17 11:04 12/30/17 15:57 12/30/17 20:48 12/30/17 23:52 Bedside Glucose 144 mg/dl 186 mg/dl 190 mg/dl 304 mg/dl Test 12/31/17 02:07 12/31/17 03:05 12/31/17 03:59 12/31/17 05:16 Bedside Glucose 296 mg/dl 226 mg/dl 207 mg/dl 185 mg/dl Test 12/31/17 05:57 12/31/17 05:58 12/31/17 09:21 Bedside Glucose 189 mg/dl 228 mg/dl White Blood Count 20.99 K/uL Red Blood Count 3.83 M/uL Hemoglobin 11.6 g/dL Hematocrit 35.0 % Mean Corpuscular Volume 91.4 fL Mean Corpuscular Hemoglobin 30.3 pg Mean Corpuscular Hemoglobin Concent 33.1 g/dl Platelet Count 125 K/uL Mean Platelet Volume 8.9 fL Neutrophils (%) (Auto) 93.0 % Lymphocytes (%) (Auto) 3.0 % Monocytes (%) (Auto) 2.9 % Eosinophils (%) (Auto) 0.0 % Basophils (%) (Auto) 0.1 % Neutrophils # (Auto) 19.51 K/uL Lymphocytes # (Auto) 0.62 K/uL Monocytes # (Auto) 0.61 K/uL Eosinophils # (Auto) 0.01 K/uL Basophils # (Auto) 0.02 K/uL RDW Standard Deviation 49.8 fL RDW Coefficient of Variation 15.0 % Immature Granulocyte % (Auto) 1.0 % Immature Granulocyte # (Auto) 0.22 K/uL Prothrombin Time 51.4 SECONDS Prothromb Time International Ratio 5.1 Sodium Level 140 mmol/L Potassium Level 3.9 mmol/L Chloride Level 105 mmol/L Carbon Dioxide Level 28 mmol/L Anion Gap 7.0 mmol/L Blood Urea Nitrogen 35 mg/dl Creatinine 2.22 mg/dl Est Creatinine Clear Calc Drug Dose 26.2 ml/min Estimated GFR () 30.0 Estimated GFR (Non- 25.9 BUN/Creatinine Ratio 15.9 Random Glucose 187 mg/dl Calcium Level 7.6 mg/dl Phosphorus Level 3.0 mg/dl Magnesium Level 2.2 mg/dl Total Bilirubin 0.4 mg/dl Aspartate Amino Transf (AST/SGOT) 16 U/L Alanine Aminotransferase (ALT/SGPT) 25 U/L Alkaline Phosphatase 92 U/L Pro-B-Type Natriuretic Peptide 674 pg/ml Total Protein 5.5 gm/dl Albumin 2.0 gm/dl Globulin 3.5 gm/dl Albumin/Globulin Ratio 0.6 Procalcitonin 0.12 ng/ml
[2017-12-31] MEDS: IPRATROPIUM BROMIDE NEB SOLN 0.02% 2.5 ML VIAL INH SCH ×2 (11:23→19:25)
[2017-12-31] MEDS: LEVALBUTEROL 1.25MG/0.5ML NEB INH SCH ×2 (11:23→19:25)
[2017-12-31] MEDS ORDERED: INSULIN HUMAN NPH SC SCH (11:30)
--- NOTE | 2017-12-31 13:04 | Pharmacy Progress Note ---
Glycemic Control Progress Note Date of Service Dec 31, 2017. Scope Glycemic Pharmacist consulted for glycemic control to write orders per [facility] inpatient glycemic control protocol. Objective Accuchecks BSG (last 24hrs): Test 12/30/17 15:57 12/30/17 20:48 12/30/17 23:52 12/31/17 02:07 Bedside Glucose 186 mg/dl (70-99) 190 mg/dl (70-99) 304 mg/dl (70-99) 296 mg/dl (70-99) Test 12/31/17 03:05 12/31/17 03:59 12/31/17 05:16 12/31/17 05:57 Bedside Glucose 226 mg/dl (70-99) 207 mg/dl (70-99) 185 mg/dl (70-99) 189 mg/dl (70-99) Test 12/31/17 05:58 12/31/17 07:09 12/31/17 08:13 12/31/17 09:21 Random Glucose 187 mg/dl (70-99) Bedside Glucose 139 mg/dl (70-99) 152 mg/dl (70-99) 228 mg/dl (70-99) Test 12/31/17 10:06 12/31/17 11:14 12/31/17 12:17 Bedside Glucose 205 mg/dl (70-99) 172 mg/dl (70-99) 134 mg/dl (70-99) HbA1c: Test 12/15/17 15:40 Hemoglobin A1c 10.4 % (4.5-5.6) H Recent Pertinent Medications The patient is currently receiving: * Basal insulin: Lantus 15 units SQ Q AM + 10 units SQ Q HS (while on insulin drip) * IV insulin infusion per severe stress protocol; goal range 120 - 200 mg/dL * Prandial insulin: Per carb ratio of 1 unit per 5 grams CHO consumed with meals Outpatient Anti-Diabetic Meds Lantus 22 units SQ daily Assessment & Plan ASSESSMENT: 12/30/17 * Type 2 diabetic x-anastasiia to ICU today for increasing O2 requirements, hypotension and unresponsive episode this AM. There is concern for worsening hypoxemic resp failure. * Patient has dx of influenza A with superimposed MSSA pneumonia in addition to a h/o COPD. There are also concerns for amiodarone pulm toxicity. * Patient had been receiving once daily prednisone which has now been changed to Solu-Medrol 40mg Q 12 hours * He had received Solu-Medrol 40mg IV Q 12 hours earlier this admission and it appears that he required ~20-25 units of Lantus per day along with ~50 units of rapid acting insulin to cover BSG elevations and meals (~70-75 units/day when tolerating a diet) * Will d/c NPH as this insulin will not work as well for Q 12 hour Solu-Medrol administration. Will revert back to Lantus for basal needs and more aggressive CR for meal-time coverage. Implement these changes this evening when the effects of this AM's dose of NPH are minimal. 12/31/17 * BSGs well controlled until Solu-Medrol 40mg IV given last evening - within a few hours of giving this dose BSG climbed to 304 * As a result, IV insulin infusion was initiated * Will continue the IV insulin infusion at this time as the patient's pulmonary status is poor, infectious process has not been r/o, O2 requirements are high * Optimal glycemic control will be maintained with IV insulin infusion as his BSGs climb dramatically with each IV Solu-medrol dose and this therapy will not change today * IV insulin infusion ran at 2.5-3.1 units/hr throughout the night * Will continue to give Lantus SQ with the drip to allow for easier transition off the drip in the future * Will use a set carb ration with meals rather than using insulin rate change calculator PLAN FOR INPATIENT GLYCEMIC CONTROL: * Continue Lantus 15 units Q AM + 10 units SQ Q PM with the insulin drip * Continue IV insulin infusion per severe stress protocol, goal range 120-200mg/ dL * Use carb ratio of 1 unit per 5 grams CHO consumed while on insulin drip * Reassess insulin doses with each step down in steroid dose * Please note that the plan above was derived based on current level of insulin resistance and hospital stress. These recommendations are appropriate for inpatient admission only. Plan of care upon discharge will need to be reassessed to avoid potential outpatient hypo/hyperglycemia. Thank you.
--- NOTE | 2017-12-31 15:34 | Progress Note ---
Internal Med Progress Note Date of Service: Dec 31, 2017. Provider Documentation: SUBJECTIVE: The patient was seen and examined Cough for 1 week ,no fever,chills or Body aches with it Remains very weak and lethargic Has not had any significant improvement for the last weak Has had CT of the Chest and is under Pulmonary and cardiology care SOB with Desaturation with minimal activity Very slow improvement -denies any symptoms except generalized weakness 12/30 Condition got worse this AM Very SOB with decreased saturation Was evaluated by Pulmonary and advised to transfer to ICU 12/31 A little better this AM Seems to have a lot of mucous secretions in Bronchial tree Coughing up grayish stuffs OBJECTIVE: Vital Signs-as noted below Exam: General-Moderate SOB at rest with lethargy Eyes-normal ENT-normal Neck-supple Lungs-decreased breath sound bilaterally Moderate crackles bilaterally at the bases more on the left than the right Heart-Regular,no murmur Abdomen-Benign,no masses,bowel sound present Extremities-trace edema bilaterally Neuro-AAOx3 Lab data as noted below. ASSESSMENT & PLAN: Assessment and Plan ACUTE HYPOXEMIC RESPIRATORY FAILURE-Progressing towards ARDS Presented with SOB /cough for 1 week and noted to have spo2 86 in RA , improved with supplemental 02 Secondary to pneumonia Steroid avoided as no significant wheeze noted and the patient is diabetic Cont wean off 02 as respiratory status improves Influenza A positive-On Flu isolation. Not been put on any Flu medications due to symptoms >1 week and no acute flu symptoms now Clinically a little better Requiring Face musk to maintain Saturation Remains stable -SOB with desaturation on ambulation Very SOB this AM Will continue Solumedrol and transfer to ICU Discussed with the Pulmonary and Son Pulmonary Toileting might be beneficial May need Bronchoscopy to suction out the secretions BILATERAL MULTILOBAR PNEUMONIA Community acquired pneumonia Started on IV Zosyn ( for pseudomonal coverage in setting of Type 2 DM / hyperglycemia ) Blood CULTURE-NEGATIVE and sputum culture :Staph Aureus.MSSA Received Vancomycin ,Changed to Ceftriaxone and Doxycycline Solumedrol added and now on Prednisone Pulmonary consulted-appreciate input Has been on Zosyn -continue for now 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 Amiodarone stopped Cardiology is on board No acute cardiac issue now HYPERGLYCEMIA WITH TYPE 2 DM On Lantus 22 U HS Started on IV insulin protocol Pharmacy consulted for glycemic management Hb A1c 9.8 on 09/2017 Hb A1c 10.4 now Reasonably controlled [place] ON CKD STAGE 3 due to above cont IV fluid resuscitation follow PRP-renal function is improving Renal function is slightly worse today Renal function is wore today HYPONATREMIA : Due to hyperglycemia cont IVF with NSS follow PRP -normalized HX OF A FLUTTER : Rate and rhythm controlled Cont amiodarone INR elevated > 4 , Coumadin on hold INR 2.4on ,remains therapeutic INR a little high today Hold Coumadin for today ,INR 5.1 FULL CODE DISPOSITION ; PT/OT prior to discharge Medicine follow up with Dr Ward Vital Signs: Date Time Temp Pulse Resp B/P (MAP) Pulse Ox O2 Delivery O2 Flow Rate FiO2 12/31/17 14:00 75 26 123/60 (81) 88 Nasal Cannula 6.0 12/31/17 12:00 78 22 141/55 (83) 92 Nasal Cannula 3.0 12/31/17 12:00 92 Nasal Cannula 3.0 12/31/17 11:33 71 20 96 Nasal Cannula 3.0 12/31/17 10:00 64 17 150/52 (84) 100 Nasal Cannula 3.0 12/31/17 08:00 36.8 69 24 131/56 (81) 99 Room Air 12/31/17 08:00 99 Nasal Cannula 3.0 12/31/17 07:23 78 20 95 Nasal Cannula 3.0 12/31/17 07:00 36.7 67 19 127/66 (78) 96 12/31/17 06:00 19 127/66 (86) 96 12/31/17 06:00 67 19 127/66 (78) 96 12/31/17 05:00 71 20 140/68 (92) 94 12/31/17 04:01 71 22 146/72 (87) 94 12/31/17 04:00 70 16 97 12/31/17 04:00 36.7 12/31/17 04:00 97 Nasal Cannula 3.0 12/31/17 03:00 66 16 126/59 (76) 99 12/31/17 02:00 67 15 135/62 (82) 98 12/31/17 02:00 15 135/62 (86) 98 12/31/17 01:00 67 18 132/59 (76) 97 12/31/17 01:00 18 132/59 (83) 97 12/31/17 01:00 67 18 132/59 (76) 97 12/31/17 00:01 70 6 96 12/31/17 00:00 36.8 71 6 133/66 (79) 96 12/30/17 23:59 97 Nasal Cannula 3.0 12/30/17 23:59 36.8 12/30/17 23:00 69 12 131/56 (77) 99 12/30/17 22:49 69 20 95 Nasal Cannula 3.0 12/30/17 22:00 68 20 124/57 (88) 98 12/30/17 21:01 76 20 139/74 (88) 93 12/30/17 20:59 73 24 136/75 (104) 93 12/30/17 20:00 36.5 12/30/17 20:00 98 Nasal Cannula 3.0 12/30/17 19:33 70 18 98 Nasal Cannula 3.0 12/30/17 19:00 68 20 144/64 (99) 97 12/30/17 18:00 69 25 120/57 (88) 96 12/30/17 17:01 73 21 104/81 (90) 95 12/30/17 16:01 75 20 135/66 (103) 98 12/30/17 16:00 36.8 12/30/17 16:00 98 Nasal Cannula 3.0 12/30/17 15:42 71 16 98 Nasal Cannula 6.0 Lab Results: Results Past 24 Hours Test 12/30/17 15:57 12/30/17 20:48 12/30/17 23:52 12/31/17 02:07 Range/Units Bedside Glucose 186 190 304 296 70-99 mg/dl Test 12/31/17 03:05 12/31/17 03:59 12/31/17 05:16 12/31/17 05:57 Range/Units Bedside Glucose 226 207 185 189 70-99 mg/dl Test 12/31/17 05:58 12/31/17 07:09 12/31/17 08:13 12/31/17 09:21 Range/Units White Blood Count 20.99 4.8-10.8 K/uL Red Blood Count 3.83 4.7-6.1 M/uL Hemoglobin 11.6 14.0-18.0 g/dL Hematocrit 35.0 42-52 % Mean Corpuscular Volume 91.4 80-100 fL Mean Corpuscular Hemoglobin 30.3 25-34 pg Mean Corpuscular Hemoglobin Concent 33.1 32-36 g/dl Platelet Count 125 130-400 K/uL Mean Platelet Volume 8.9 7.4-10.4 fL Neutrophils (%) (Auto) 93.0 % Lymphocytes (%) (Auto) 3.0 % Monocytes (%) (Auto) 2.9 % Eosinophils (%) (Auto) 0.0 % Basophils (%) (Auto) 0.1 % Neutrophils # (Auto) 19.51 1.4-6.5 K/uL Lymphocytes # (Auto) 0.62 1.2-3.4 K/uL Monocytes # (Auto) 0.61 0.11-0.59 K/uL Eosinophils # (Auto) 0.01 0-0.5 K/uL Basophils # (Auto) 0.02 0-0.2 K/uL RDW Standard Deviation 49.8 36.4-46.3 fL RDW Coefficient of Variation 15.0 11.5-14.5 % Immature Granulocyte % (Auto) 1.0 % Immature Granulocyte # (Auto) 0.22 0.00-0.02 K/uL Prothrombin Time 51.4 9.0-12.0 SECONDS Prothromb Time International Ratio 5.1 0.9-1.1 Sodium Level 140 136-145 mmol/L Potassium Level 3.9 3.5-5.1 mmol/L Chloride Level 105 98-107 mmol/L Carbon Dioxide Level 28 21-32 mmol/L Anion Gap 7.0 3-11 mmol/L Blood Urea Nitrogen 35 7-18 mg/dl Creatinine 2.22 0.60-1.40 mg/dl Est Creatinine Clear Calc Drug Dose 26.2 ml/min Estimated GFR () 30.0 Estimated GFR (Non- 25.9 BUN/Creatinine Ratio 15.9 10-20 Random Glucose 187 70-99 mg/dl Calcium Level 7.6 8.5-10.1 mg/dl Phosphorus Level 3.0 2.5-4.9 mg/dl Magnesium Level 2.2 1.8-2.4 mg/dl Total Bilirubin 0.4 0.2-1 mg/dl Aspartate Amino Transf (AST/SGOT) 16 15-37 U/L Alanine Aminotransferase (ALT/SGPT) 25 12-78 U/L Alkaline Phosphatase 92 45-117 U/L Pro-B-Type Natriuretic Peptide 674 0-1800 pg/ml Total Protein 5.5 6.4-8.2 gm/dl Albumin 2.0 3.4-5.0 gm/dl Globulin 3.5 2.5-4.0 gm/dl Albumin/Globulin Ratio 0.6 0.9-2 Procalcitonin 0.12 0-0.5 ng/ml Bedside Glucose 139 152 228 70-99 mg/dl Test 12/31/17 10:06 12/31/17 11:14 12/31/17 12:17 12/31/17 13:11 Range/Units Bedside Glucose 205 172 134 180 70-99 mg/dl Test 12/31/17 14:14 Range/Units Bedside Glucose 117 70-99 mg/dl Microbiology Results 12/31/17 MRSA DNA Surveillance Screen - Final, Complete Specimen Negative for MRSA by DNA Probe 12/31/17 Gram Stain, Carlos Batch Pending 12/31/17 Sputum Culture, Carlos Batch Pending
--- NOTE | 2017-12-31 18:36 | Critical Care Progress Note ---
Critical Care Progress Note Date of Service Dec 31, 2017. Attending Dr. Rudolph Subjective The patient seemed to be doing well most of the day, on 2 liters NC. However, when he ambulated to use the toilet, he became acutely short of breath, with persistent hypoxia. 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 Requires insulin drip for glycemic control Contemplating bronchoscopy next week if he doesn't improve Hold diuretics for now, has more decline in renal function. BNP also normal Hold Coumadin today as well, INR supratherapeutic. No evidence of bleeding Critical care time spent with patient, family, reviewing chart, discussing with consultants, greater than 30 minutes Consults & Procedures Consultants: Cardiology - Dr Piña Pulmonary - Dr Funk Data Medications: Current Inpatient Medications Medications (Trade) Dose Ordered Sig/Krystal Route Start Time Stop Time Status Last Admin Dose Admin Miscellaneous Information (Consult Glycemic Management Pharmacy) 1 ea UD PRN N/A 12/15/17 18:01 01/14/18 18:00 Acetaminophen (Tylenol Tab) 650 mg Q4H PRN PO 12/15/17 17:15 01/14/18 17:14 12/18/17 05:52 650 MG Al Hydrox/Mg Hydrox/Simethicone (Maalox Max Susp) 15 ml Q4H PRN PO 12/15/17 17:15 01/14/18 17:14 Magnesium Hydroxide (Milk Of Magnesia Susp) 30 ml Q12H PRN PO 12/15/17 17:15 01/14/18 17:14 Ondansetron HCl (Zofran Inj) 4 mg Q6H PRN IV 12/15/17 17:15 01/14/18 17:14 Polyethylene (Miralax Powder Packet) 17 gm DAILY PRN PO 12/15/17 17:15 01/14/18 17:14 Cholecalciferol (Vitamin D Tab) 2,000 inter.unit DAILY PO 12/16/17 09:00 01/15/18 08:59 12/31/17 09:31 2,000 INTER.UNIT Pantoprazole Sodium (Protonix Tab) 40 mg QAM PO 12/16/17 09:00 01/15/18 08:59 12/31/17 09:30 40 MG Ipratropium Douglas (Atrovent 0.02% 0.5MG/2.5ML Neb) 0.5 mg Q2H PRN INH 12/15/17 21:15 01/14/18 21:14 12/30/17 08:39 0.5 MG Levalbuterol (Xopenex 1.25MG/ 0.5ML Neb) 1.25 mg Q2H PRN INH 12/15/17 21:15 01/14/18 21:14 12/30/17 08:39 1.25 MG Magnesium Chloride (Slow-Mag Tab) 128 mg DAILY PO 12/17/17 10:45 01/16/18 10:44 12/31/17 09:30 128 MG Warfarin Sodium (Coumadin Tab) 3 mg DAILY@1600 PO 12/21/17 16:00 01/19/18 15:59 Future Hold 12/29/17 15:32 3 MG Guaifenesin (Mucinex Contr Rel Tab) 600 mg Q12 PO 12/21/17 21:00 01/20/18 20:59 12/31/17 09:29 600 MG Ipratropium Douglas (Atrovent 0.02% 0.5MG/2.5ML Neb) 0.5 mg Q4RWA INH 12/22/17 12:00 01/15/18 02:59 12/31/17 11:23 0.5 MG Levalbuterol (Xopenex 1.25MG/ 0.5ML Neb) 1.25 mg Q4RWA INH 12/22/17 12:00 01/15/18 02:59 12/31/17 11:23 1.25 MG Miconazole Nitrate (Desenex Powder) 1 appln PRN PRN EXT 12/26/17 03:30 01/25/18 03:29 Miscellaneous Information (Consult) 1 ea UD PRN N/A 12/26/17 16:00 01/25/18 15:59 Tamsulosin HCl (Flomax Cap) 0.4 mg BID PO 12/26/17 21:00 01/15/18 08:59 12/31/17 09:29 0.4 MG Finasteride (Proscar Tab) 5 mg QAM PO 12/27/17 09:00 01/26/18 08:59 12/31/17 09:30 5 MG Glucose (Glucose 40% Gel) 15-30 GRAMS 15 GRAMS... UD PRN PO 12/27/17 16:45 01/26/18 16:44 Glucose (Glucose Chew Tab) 4-8 Tablets 4 Tabl... UD PRN PO 12/27/17 16:45 01/26/18 16:44 12/27/17 16:46 4 TABS Dextrose (Dextrose 50% 50ML Syringe) 25-50ML OF 50% DW IV FOR... UD PRN IV 12/27/17 16:45 01/26/18 16:44 Glucagon (Glucagon Inj) 1 mg UD PRN SQ 12/27/17 16:45 01/26/18 16:44 Piperacillin Sod/ Tazobactam Sod 3.375 gm/Dextrose 115 ml @ 28.75 mls/ hr Q8H IV 12/29/17 08:00 01/05/18 07:59 12/31/17 13:26 28.75 MLS/HR Torsemide (Demadex Tab) 20 mg QAM PO 12/30/17 09:00 01/29/18 08:59 12/31/17 09:28 20 MG Potassium Chloride (Klor-Con M10) 10 meq DAILY PO 12/30/17 09:00 01/29/18 08:59 12/31/17 09:29 10 MEQ Methylprednisolone Sodium Succinate 40 mg/Syringe 0.64 ml @ 1.5 mls/min BID IV 12/30/17 21:00 01/29/18 20:59 12/31/17 09:38 1.5 MLS/MIN Insulin Glargine (Lantus Solostar Pen) 10 units HS TN 12/30/17 21:00 01/29/18 20:59 Future hold 12/30/17 20:53 10 UNITS Insulin Glargine (Lantus Solostar Pen) 15 units QAM TN 12/31/17 09:00 01/30/18 08:59 Future hold 12/31/17 09:33 15 UNITS Insulin Human Regular 250 units/ Sodium Chloride 252.5 ml @ 0 mls/hr Q24H IV 12/31/17 00:30 01/30/18 00:29 12/31/17 00:48 3.1 MLS/HR Insulin Aspart (novoLOG ASPART) SLIDING SCALE PCHS TN 12/31/17 08:00 01/30/18 07:59 12/31/17 12:52 13 UNITS I & O: 24-Hour Column 01/01/18 08:00 Intake Total 514 ml Output Total 600 ml Balance -86 ml Vital Signs: Date Time Temp Pulse Resp B/P (MAP) Pulse Ox O2 Delivery O2 Flow Rate FiO2 12/31/17 14:00 75 26 123/60 (81) 88 Nasal Cannula 6.0 12/31/17 12:00 78 22 141/55 (83) 92 Nasal Cannula 3.0 12/31/17 12:00 92 Nasal Cannula 3.0 12/31/17 11:33 71 20 96 Nasal Cannula 3.0 12/31/17 10:00 64 17 150/52 (84) 100 Nasal Cannula 3.0 12/31/17 08:00 36.8 69 24 131/56 (81) 99 Room Air 12/31/17 08:00 99 Nasal Cannula 3.0 12/31/17 07:23 78 20 95 Nasal Cannula 3.0 12/31/17 07:00 36.7 67 19 127/66 (78) 96 12/31/17 06:00 19 127/66 (86) 96 12/31/17 06:00 67 19 127/66 (78) 96 12/31/17 05:00 71 20 140/68 (92) 94 12/31/17 04:01 71 22 146/72 (87) 94 12/31/17 04:00 70 16 97 12/31/17 04:00 36.7 12/31/17 04:00 97 Nasal Cannula 3.0 12/31/17 03:00 66 16 126/59 (76) 99 12/31/17 02:00 67 15 135/62 (82) 98 12/31/17 02:00 15 135/62 (86) 98 12/31/17 01:00 67 18 132/59 (76) 97 12/31/17 01:00 18 132/59 (83) 97 12/31/17 01:00 67 18 132/59 (76) 97 12/31/17 00:01 70 6 96 12/31/17 00:00 36.8 71 6 133/66 (79) 96 12/30/17 23:59 97 Nasal Cannula 3.0 12/30/17 23:59 36.8 12/30/17 23:00 69 12 131/56 (77) 99 12/30/17 22:49 69 20 95 Nasal Cannula 3.0 12/30/17 22:00 68 20 124/57 (88) 98 12/30/17 21:01 76 20 139/74 (88) 93 12/30/17 20:59 73 24 136/75 (104) 93 12/30/17 20:00 36.5 12/30/17 20:00 98 Nasal Cannula 3.0 12/30/17 19:33 70 18 98 Nasal Cannula 3.0 12/30/17 19:00 68 20 144/64 (99) 97 Laboratory Results: Last 24 Hours Test 12/30/17 20:48 12/30/17 23:52 12/31/17 02:07 12/31/17 03:05 Bedside Glucose 190 mg/dl 304 mg/dl 296 mg/dl 226 mg/dl Test 12/31/17 03:59 12/31/17 05:16 12/31/17 05:57 12/31/17 05:58 Bedside Glucose 207 mg/dl 185 mg/dl 189 mg/dl White Blood Count 20.99 K/uL Red Blood Count 3.83 M/uL Hemoglobin 11.6 g/dL Hematocrit 35.0 % Mean Corpuscular Volume 91.4 fL Mean Corpuscular Hemoglobin 30.3 pg Mean Corpuscular Hemoglobin Concent 33.1 g/dl Platelet Count 125 K/uL Mean Platelet Volume 8.9 fL Neutrophils (%) (Auto) 93.0 % Lymphocytes (%) (Auto) 3.0 % Monocytes (%) (Auto) 2.9 % Eosinophils (%) (Auto) 0.0 % Basophils (%) (Auto) 0.1 % Neutrophils # (Auto) 19.51 K/uL Lymphocytes # (Auto) 0.62 K/uL Monocytes # (Auto) 0.61 K/uL Eosinophils # (Auto) 0.01 K/uL Basophils # (Auto) 0.02 K/uL RDW Standard Deviation 49.8 fL RDW Coefficient of Variation 15.0 % Immature Granulocyte % (Auto) 1.0 % Immature Granulocyte # (Auto) 0.22 K/uL Prothrombin Time 51.4 SECONDS Prothromb Time International Ratio 5.1 Sodium Level 140 mmol/L Potassium Level 3.9 mmol/L Chloride Level 105 mmol/L Carbon Dioxide Level 28 mmol/L Anion Gap 7.0 mmol/L Blood Urea Nitrogen 35 mg/dl Creatinine 2.22 mg/dl Est Creatinine Clear Calc Drug Dose 26.2 ml/min Estimated GFR () 30.0 Estimated GFR (Non- 25.9 BUN/Creatinine Ratio 15.9 Random Glucose 187 mg/dl Calcium Level 7.6 mg/dl Phosphorus Level 3.0 mg/dl Magnesium Level 2.2 mg/dl Total Bilirubin 0.4 mg/dl Aspartate Amino Transf (AST/SGOT) 16 U/L Alanine Aminotransferase (ALT/SGPT) 25 U/L Alkaline Phosphatase 92 U/L Pro-B-Type Natriuretic Peptide 674 pg/ml Total Protein 5.5 gm/dl Albumin 2.0 gm/dl Globulin 3.5 gm/dl Albumin/Globulin Ratio 0.6 Procalcitonin 0.12 ng/ml Test 12/31/17 07:09 12/31/17 08:13 12/31/17 09:21 12/31/17 10:06 Bedside Glucose 139 mg/dl 152 mg/dl 228 mg/dl 205 mg/dl Test 12/31/17 11:14 12/31/17 12:17 12/31/17 13:11 12/31/17 14:14 Bedside Glucose 172 mg/dl 134 mg/dl 180 mg/dl 117 mg/dl
[2017-12-31] MEDS: INSULIN GLARGINE SOLOSTAR 100 UNITS/ML 3 ML PEN SC SCH (21:37)
[2017-12-31] MEDS: IPRATROPIUM BROMIDE NEB SOLN 0.02% 2.5 ML VIAL INH PRN (23:10)
[2017-12-31] MEDS: LEVALBUTEROL 1.25MG/0.5ML NEB INH PRN (23:10)
[2018-01-01] VITALS (23 sets, daily range): BP systolic 94–146; BP diastolic 44–64; PULSE 63–105; TEMP 36.7–36.9; O2SAT 87–100
[2018-01-01] MEDS: INSULIN REGULAR 250 UNITS in SODIUM CHLORIDE 0.9% 250ML 250 ML IV SCH (00:27)
[2018-01-01] MEDS: PIPERACILL/TAZOBAC IV 3.375 GM in DEXTROSE 5% 100ML 100 ML IV SCH ×3 (05:04→20:35)
[2018-01-01 06:21] LABS: ALBUMIN 2.2 gm/dl (3.4-5.0); CALCIUM 7.8 mg/dl (8.5-10.1); CREATININE 2.26 mg/dl (0.60-1.40); PHOSPHORUS 3.5 mg/dl (2.5-4.9); POTASSIUM 4.6 mmol/L (3.5-5.1); TOTAL PROTEIN 5.9 gm/dl (6.4-8.2)
[2018-01-01] MEDS: LEVALBUTEROL 1.25MG/0.5ML NEB INH SCH ×3 (07:24→14:49)
[2018-01-01] MEDS: IPRATROPIUM BROMIDE NEB SOLN 0.02% 2.5 ML VIAL INH SCH ×3 (07:25→14:49)
--- NOTE | 2018-01-01 07:57 | DIAGNOSTIC IMAGING REPORT ---
CHEST ONE VIEW PORTABLE HISTORY: 87 years-old Male Resp failure acute respiratory failure COMPARISON: Chest radiograph 2017, chest CT 12/26/2017 TECHNIQUE: Portable AP view of the chest FINDINGS: Cardiac silhouette is again enlarged. Alveolar opacities of the right upper lobe with central air bronchograms are unchanged. Mild right hemidiaphragmatic elevation with persistent subsegmental bibasilar opacities. Relative sparing of the left upper lobe redemonstrated. No pneumothorax, or overt pulmonary edema. Small right pleural effusion redemonstrated. Bones of the chest appear grossly intact. IMPRESSION: Stable exam with persistent right upper lobe and bibasilar consolidative opacities with small right pleural effusion. The above report was generated using voice recognition software. It may contain grammatical, syntax or spelling errors. Electronically signed by: Freddie Crane M.D. 01/01/2018 7:55 AM Dictated Date/Time: 01/01/2018 7:53 AM
[2018-01-01] MEDS: INSULIN ASPART 100 UNITS/ML 3 ML PEN SC SCH ×4 (08:57→20:37)
[2018-01-01] MEDS: INSULIN GLARGINE SOLOSTAR 100 UNITS/ML 3 ML PEN SC SCH (08:58)
[2018-01-01] MEDS: GUAIFENESIN 600 MG TABCR PO SCH ×2 (09:11→20:35)
[2018-01-01] MEDS: PANTOprazole SOD 40 MG TAB PO SCH (09:11)
[2018-01-01] MEDS: TORSEMIDE 20 MG TAB PO SCH (09:11)
[2018-01-01] MEDS: CHOLECALCIFEROL 1000 INTER.UNIT TAB PO SCH (09:11)
[2018-01-01] MEDS: MAGNESIUM CHLORIDE 64MG DELAYED REL TAB PO SCH (09:12)
[2018-01-01] MEDS: POTASSIUM CHLORIDE 10 MEQ TABCR PO SCH (09:12)
[2018-01-01] MEDS: TAMSULOSIN HCL 0.4 MG CAP PO SCH ×2 (09:12→20:36)
[2018-01-01] MEDS: FINASTERIDE 5 MG TAB PO SCH (09:12)
[2018-01-01] MEDS: METHYLPREDNISOLONE IV 40 MG in SYRINGE 0 ML IV SCH (09:13)
[2018-01-01 09:21] LABS: HEMATOCRIT 36.1 % (42-52); HEMOGLOBIN 11.8 g/dL (14.0-18.0); MEAN CELL VOLUME 92.3 fL (80-100); MEAN CORPUSCULAR HEMOGLOBIN 30.2 pg (25-34); MEAN CORPUSCULAR HGB CONC 32.7 g/dl (32-36); PLATELET COUNT 144 K/uL (130-400); RED CELL DISTRIBUTION WIDTH CV 15.2 % (11.5-14.5); RED CELL DISTRIBUTION WIDTH SD 51.1 fL (36.4-46.3); WHITE BLOOD COUNT 26.19 K/uL (4.8-10.8)
[2018-01-01 09:33] LABS: INR 3.8 (0.9-1.1)
[2018-01-01 09:51] LABS: BASO ABS # 0.01 K/uL (0-0.2); IG# 0.24 K/uL (0.00-0.02); LYMPH % 2.3 %; LYMPH ABS # 0.61 K/uL (1.2-3.4); MONO % 2.6 %; MONO ABS # 0.68 K/uL (0.11-0.59); NEUT % 94.2 %; NEUT ABS # 24.65 K/uL (1.4-6.5)
--- NOTE | 2018-01-01 10:23 | DIAGNOSTIC IMAGING REPORT ---
(CHEST) THORAX WITHOUT CT DOSE: 578.91 mGy.cm CLINICAL HISTORY: 87 years-old Male with Persistent PNA. Follow-up study in a patient with pneumonia. TECHNIQUE: Multiaxial CT images of the chest were performed without contrast. A dose lowering technique was utilized adhering to the principles of ALARA. COMPARISON: Chest radiograph of same day, CT chest 12/26/2017. FINDINGS: No dominant thyroid nodule. Decreased size of a precarinal lymph node now measuring 7 mm, previously 9 mm. No pathologically enlarged lymph nodes by CT size criteria. 7 mm right paratracheal lymph node is seen on image 96 series 4, likely reactive. Heart is the upper limits of normal in size without pericardial effusion. Coronary arterial disease. No aortic aneurysm. Unchanged trace right pleural effusion. There is resolution of the previously noted trace left pleural effusion. No pneumothorax. Mild emphysema redemonstrated. Multifocal groundglass and consolidative opacities are again noted bilaterally within a multilobar distribution, greatest within the right upper and bilateral lower lobes. Disease within the left lower and right upper lobes have progressed and now appear to be more confluent with airspace opacities now the predominant imaging characteristics rather than groundglass densities. There is mildly improved aeration of the lingula. No suspicious pulmonary nodules or masses identified. Central airways are generally patent. Respiratory motion limits evaluation of the lung bases. No acute abnormality of the imaged upper abdomen. Layering hyperattenuating material is noted within the dependent gallbladder suggesting sludge or cholelithiasis. Soft tissues are unremarkable. Bones appear intact. Degenerative changes are noted within the spine and shoulders. IMPRESSION: 1. Persistent multifocal multilobar distribution of groundglass and consolidative opacities as above with mildly improved aeration of the lingula. Disease within the left lower and right upper lobes demonstrate increased consolidation from comparison. 2. Trace right pleural effusion appears unchanged with resolution of the previously described trace left pleural effusion. 3. Slightly decreased adenopathy of the mediastinum, likely reactive. 4. Layering increased attenuation of the gallbladder lumen suggests cholelithiasis. 5. Emphysema. Electronically signed by: Freddie Crane M.D. 01/01/2018 10:21 AM Dictated Date/Time: 01/01/2018 10:13 AM
[2018-01-01] MEDS ORDERED: LINEZOLID 600 MG TAB PO ONE (11:13)
--- NOTE | 2018-01-01 11:35 | Critical Care Progress Note ---
Critical Care Progress Note Date of Service Jan 01, 2018. Attending Dr. Rudolph Subjective Still very weak. Desaturates easily Very difficult blood draw this AM. I had to an ultrasound guided arterial stick Objective general: Elderly male, NAD HEENT: NC/AT Lungs: Mostly clear to auscultation, coarse over the right lung, no rhonchi or wheezing CVS: S1S2 reg Abd: Soft Ext: No edema MANAGER DATABASE: AAO x 3, no deficit Assessment & Plan Respiratory failure secondary to multi-lobar MSSA pneumonia, with RUL predominance, post influenza A A-flutter DM-2 CKD Plan: He was probably treated appropriately for the bacterial pneumonia, but has persistent lung disease, with no clinical or radiographic resolution. Patient is not improving despite long course of Zosyn. CT chest today actually shows some worsening of the parenchymal disease. Worsening leukocytosis, even though he has been on steroids for a long time. Will escalate the antibiotic therapy, add Zyvox and azithromycin. 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 BNP also normal Hold Coumadin today as well, INR supratherapeutic, but started to come down. No evidence of bleeding Critical care time spent with patient, family, reviewing chart, discussing with consultants, greater than 40 minutes Consults & Procedures Consultants: Cardiology - Dr Piña Pulmonary - Dr Funk Data Medications: Current Inpatient Medications Medications (Trade) Dose Ordered Sig/Krystal Route Start Time Stop Time Status Last Admin Dose Admin Miscellaneous Information (Consult Glycemic Management Pharmacy) 1 ea UD PRN N/A 12/15/17 18:01 01/14/18 18:00 Acetaminophen (Tylenol Tab) 650 mg Q4H PRN PO 12/15/17 17:15 01/14/18 17:14 12/18/17 05:52 650 MG Al Hydrox/Mg Hydrox/Simethicone (Maalox Max Susp) 15 ml Q4H PRN PO 12/15/17 17:15 01/14/18 17:14 Magnesium Hydroxide (Milk Of Magnesia Susp) 30 ml Q12H PRN PO 12/15/17 17:15 01/14/18 17:14 Ondansetron HCl (Zofran Inj) 4 mg Q6H PRN IV 12/15/17 17:15 01/14/18 17:14 Polyethylene (Miralax Powder Packet) 17 gm DAILY PRN PO 12/15/17 17:15 01/14/18 17:14 Cholecalciferol (Vitamin D Tab) 2,000 inter.unit DAILY PO 12/16/17 09:00 01/15/18 08:59 01/01/18 09:11 2,000 INTER.UNIT Pantoprazole Sodium (Protonix Tab) 40 mg QAM PO 12/16/17 09:00 01/15/18 08:59 01/01/18 09:11 40 MG Ipratropium Placitas (Atrovent 0.02% 0.5MG/2.5ML Neb) 0.5 mg Q2H PRN INH 12/15/17 21:15 01/14/18 21:14 12/31/17 23:10 0.5 MG Levalbuterol (Xopenex 1.25MG/ 0.5ML Neb) 1.25 mg Q2H PRN INH 12/15/17 21:15 01/14/18 21:14 12/31/17 23:10 1.25 MG Magnesium Chloride (Slow-Mag Tab) 128 mg DAILY PO 12/17/17 10:45 01/16/18 10:44 01/01/18 09:12 128 MG Warfarin Sodium (Coumadin Tab) 3 mg DAILY@1600 PO 12/21/17 16:00 01/19/18 15:59 Future Hold 12/29/17 15:32 3 MG Guaifenesin (Mucinex Contr Rel Tab) 600 mg Q12 PO 12/21/17 21:00 01/20/18 20:59 01/01/18 09:11 600 MG Ipratropium Placitas (Atrovent 0.02% 0.5MG/2.5ML Neb) 0.5 mg Q4RWA INH 12/22/17 12:00 01/15/18 02:59 01/01/18 11:24 0.5 MG Levalbuterol (Xopenex 1.25MG/ 0.5ML Neb) 1.25 mg Q4RWA INH 12/22/17 12:00 01/15/18 02:59 01/01/18 11:24 1.25 MG Miconazole Nitrate (Desenex Powder) 1 appln PRN PRN EXT 12/26/17 03:30 01/25/18 03:29 Miscellaneous Information (Consult) 1 ea UD PRN N/A 12/26/17 16:00 01/25/18 15:59 Tamsulosin HCl (Flomax Cap) 0.4 mg BID PO 12/26/17 21:00 01/15/18 08:59 01/01/18 09:12 0.4 MG Finasteride (Proscar Tab) 5 mg QAM PO 12/27/17 09:00 01/26/18 08:59 01/01/18 09:12 5 MG Glucose (Glucose 40% Gel) 15-30 GRAMS 15 GRAMS... UD PRN PO 12/27/17 16:45 01/26/18 16:44 Glucose (Glucose Chew Tab) 4-8 Tablets 4 Tabl... UD PRN PO 12/27/17 16:45 01/26/18 16:44 12/27/17 16:46 4 TABS Dextrose (Dextrose 50% 50ML Syringe) 25-50ML OF 50% DW IV FOR... UD PRN IV 12/27/17 16:45 01/26/18 16:44 Glucagon (Glucagon Inj) 1 mg UD PRN SQ 12/27/17 16:45 01/26/18 16:44 Piperacillin Sod/ Tazobactam Sod 3.375 gm/Dextrose 115 ml @ 28.75 mls/ hr Q8H IV 12/29/17 08:00 01/05/18 07:59 01/01/18 05:04 28.75 MLS/HR Torsemide (Demadex Tab) 20 mg QAM PO 12/30/17 09:00 01/29/18 08:59 01/01/18 09:11 20 MG Potassium Chloride (Klor-Con M10) 10 meq DAILY PO 12/30/17 09:00 01/29/18 08:59 01/01/18 09:12 10 MEQ Insulin Glargine (Lantus Solostar Pen) 10 units HS SC 12/30/17 21:00 01/29/18 20:59 Future hold 12/31/17 21:37 10 UNITS Insulin Human Regular 250 units/ Sodium Chloride 252.5 ml @ 0 mls/hr Q24H IV 12/31/17 00:30 01/01/18 12:00 01/01/18 00:27 2.3 MLS/HR Insulin Glargine (Lantus Solostar Pen) 35 units QAM SC 01/01/18 09:00 01/31/18 08:59 01/01/18 08:58 35 UNITS Insulin Aspart (novoLOG ASPART) SLIDING SCALE ACHS SC 01/01/18 08:45 01/31/18 08:44 01/01/18 08:57 5 UNITS Methylprednisolone Sodium Succinate 20 mg/Syringe 0.32 ml @ 1.5 mls/min BID IV 01/01/18 21:00 01/29/18 20:59 Linezolid (Zyvox Tab) 600 mg BID PO 01/01/18 21:00 01/08/18 20:59 Azithromycin 500 mg/Dextrose 255 ml @ 125 mls/hr DAILY IV 01/01/18 11:30 01/08/18 11:29 Vital Signs: Date Time Temp Pulse Resp B/P (MAP) Pulse Ox O2 Delivery O2 Flow Rate FiO2 01/01/18 11:24 75 18 99 Nasal Cannula 2.0 01/01/18 09:45 74 22 145/58 (87) 99 Nasal Cannula 3.0 01/01/18 08:00 Nasal Cannula 3.0 01/01/18 08:00 36.8 80 23 122/46 (71) 90 Nasal Cannula 3.0 01/01/18 07:28 77 18 96 Nasal Cannula 2.0 01/01/18 06:00 66 16 97 Nasal Cannula 3.0 01/01/18 05:00 66 16 146/64 (91) 99 Nasal Cannula 3.0 01/01/18 04:00 36.9 63 19 133/56 (81) 97 Nasal Cannula 3.0 01/01/18 04:00 96 Nasal Cannula 3.0 01/01/18 03:00 64 0 109/56 (73) 97 Nasal Cannula 3.0 01/01/18 02:00 65 12 116/47 (70) 96 Nasal Cannula 3.0 01/01/18 01:00 67 4 121/45 (70) 97 Nasal Cannula 3.0 01/01/18 00:00 36.9 72 12 128/47 (74) 97 Nasal Cannula 3.0 12/31/17 23:59 96 Nasal Cannula 3.0 12/31/17 23:10 73 18 96 Nasal Cannula 3.0 12/31/17 23:00 74 20 129/58 (81) 95 Nasal Cannula 3.0 12/31/17 22:01 36.6 70 19 132/51 (78) 97 Nasal Cannula 3.0 12/31/17 21:00 71 19 137/52 (80) 96 Nasal Cannula 3.0 12/31/17 20:07 96 Nasal Cannula 3.0 12/31/17 20:00 36.6 78 25 118/52 (74) 92 Nasal Cannula 3.0 12/31/17 19:28 70 18 96 Nasal Cannula 3.0 12/31/17 19:00 68 13 135/51 (79) 97 Nasal Cannula 3.0 12/31/17 18:00 67 5 116/42 (75) 97 12/31/17 17:00 73 19 109/51 (81) 95 12/31/17 16:01 73 27 127/64 (90) 96 12/31/17 16:00 75 16 98 12/31/17 16:00 92 Nasal Cannula 3.0 12/31/17 15:01 73 14 126/57 (73) 98 12/31/17 15:00 70 18 99 12/31/17 14:04 77 20 123/60 (93) 98 12/31/17 14:00 75 26 123/60 (81) 88 Nasal Cannula 6.0 12/31/17 14:00 72 23 98 12/31/17 13:01 74 25 128/60 (83) 98 12/31/17 13:00 74 22 97 12/31/17 12:01 83 18 141/55 (83) 80 12/31/17 12:00 78 22 141/55 (83) 92 Nasal Cannula 3.0 12/31/17 12:00 92 Nasal Cannula 3.0 12/31/17 12:00 82 15 90 12/31/17 11:59 81 12 141/62 (92) 92 12/31/17 11:33 71 20 96 Nasal Cannula 3.0 Laboratory Results: Last 24 Hours Test 12/31/17 12:17 12/31/17 13:11 12/31/17 14:14 12/31/17 15:05 Bedside Glucose 134 mg/dl 180 mg/dl 117 mg/dl 349 mg/dl Test 12/31/17 16:24 12/31/17 19:21 12/31/17 21:08 12/31/17 23:19 Bedside Glucose 157 mg/dl 236 mg/dl 221 mg/dl 210 mg/dl Test 01/01/18 00:09 01/01/18 01:23 01/01/18 02:13 01/01/18 03:21 Bedside Glucose 166 mg/dl 158 mg/dl 121 mg/dl 98 mg/dl Test 01/01/18 04:17 01/01/18 05:03 01/01/18 05:34 01/01/18 05:40 Bedside Glucose 131 mg/dl 103 mg/dl 116 mg/dl Sodium Level 139 mmol/L Potassium Level 4.6 mmol/L Chloride Level 107 mmol/L Carbon Dioxide Level 24 mmol/L Anion Gap 8.0 mmol/L Blood Urea Nitrogen 42 mg/dl Creatinine 2.26 mg/dl Est Creatinine Clear Calc Drug Dose 25.8 ml/min Estimated GFR () 29.3 Estimated GFR (Non- 25.3 BUN/Creatinine Ratio 18.4 Random Glucose 114 mg/dl Calcium Level 7.8 mg/dl Phosphorus Level 3.5 mg/dl Magnesium Level 2.2 mg/dl Total Bilirubin 0.6 mg/dl Aspartate Amino Transf (AST/SGOT) 23 U/L Alanine Aminotransferase (ALT/SGPT) 27 U/L Alkaline Phosphatase 96 U/L Total Protein 5.9 gm/dl Albumin 2.2 gm/dl Globulin 3.7 gm/dl Albumin/Globulin Ratio 0.6 Chemistry Specimen Hemolysis Test 01/01/18 06:24 01/01/18 07:21 01/01/18 08:06 01/01/18 09:00 Bedside Glucose 139 mg/dl 158 mg/dl 156 mg/dl White Blood Count 26.19 K/uL Red Blood Count 3.91 M/uL Hemoglobin 11.8 g/dL Hematocrit 36.1 % Mean Corpuscular Volume 92.3 fL Mean Corpuscular Hemoglobin 30.2 pg Mean Corpuscular Hemoglobin Concent 32.7 g/dl Platelet Count 144 K/uL Mean Platelet Volume 9.0 fL Neutrophils (%) (Auto) 94.2 % Lymphocytes (%) (Auto) 2.3 % Monocytes (%) (Auto) 2.6 % Eosinophils (%) (Auto) 0.0 % Basophils (%) (Auto) 0.0 % Neutrophils # (Auto) 24.65 K/uL Lymphocytes # (Auto) 0.61 K/uL Monocytes # (Auto) 0.68 K/uL Eosinophils # (Auto) 0.00 K/uL Basophils # (Auto) 0.01 K/uL RDW Standard Deviation 51.1 fL RDW Coefficient of Variation 15.2 % Immature Granulocyte % (Auto) 0.9 % Immature Granulocyte # (Auto) 0.24 K/uL Prothrombin Time 38.8 SECONDS Prothromb Time International Ratio 3.8 Test 01/01/18 09:11 01/01/18 09:19 01/01/18 10:20 Blood Gas Sample Site L Brachial Bedside Blood Gas pH (LAB) 7.43 Bedside Blood Gas pCO2 (LAB) 40 mmHg Bedside Blood Gas pO2 (LAB) 81 mmHg Bedside Blood Gas HCO3 (LAB) 26 meq/L Bedside Blood Gas Total CO2 27 mEq/l Bedside Blood Gas Base Excess (LAB) 2.0 meq/L Bedside Blood Gas O2 Saturation 96.0 % Santana Test Pass Oxygen Delivery Device Cannula Bedside Glucose 288 mg/dl 336 mg/dl
--- NOTE | 2018-01-01 11:50 | Progress Note ---
Internal Med Progress Note Date of Service: Jan 01, 2018. Provider Documentation: SUBJECTIVE: The patient was seen and examined Cough for 1 week ,no fever,chills or Body aches with it Remains very weak and lethargic Has not had any significant improvement for the last weak Has had CT of the Chest and is under Pulmonary and cardiology care SOB with Desaturation with minimal activity Very slow improvement -denies any symptoms except generalized weakness 12/30 Condition got worse this AM Very SOB with decreased saturation Was evaluated by Pulmonary and advised to transfer to ICU 12/31 A little better this AM Seems to have a lot of mucous secretions in Bronchial tree Coughing up grayish stuffs 01/01 Not any better Remains generally weak and lethargica Denies any pain OBJECTIVE: Vital Signs-as noted below Exam: General-Moderate SOB at rest with lethargy Eyes-normal ENT-normal Neck-supple Lungs-decreased breath osund at the back Moderate crackles bilaterally at the bases more on the left than the right Heart-Regular,no murmur Abdomen-Benign,no masses,bowel sound present Extremities-Bilateral UE Edema None in legs Neuro-AAOx3 Generally weak Lab data as noted below. ASSESSMENT & PLAN: Assessment and Plan ACUTE HYPOXEMIC RESPIRATORY FAILURE-Progressing towards ARDS Presented with SOB /cough for 1 week and noted to have spo2 86 in RA , improved with supplemental 02 Secondary to pneumonia Steroid avoided as no significant wheeze noted and the patient is diabetic Cont wean off 02 as respiratory status improves Influenza A positive-On Flu isolation. Not been put on any Flu medications due to symptoms >1 week and no acute flu symptoms now Clinically a little better Requiring Face musk to maintain Saturation Remains stable -SOB with desaturation on ambulation Very SOB this AM Will continue Solumedrol and transfer to ICU Discussed with the Pulmonary and Son Pulmonary Toileting might be beneficial and getting Chest PT May need Bronchoscopy to suction out the secretions Repeat CT of the Chest shows worsening of the Infiltration BILATERAL MULTILOBAR PNEUMONIA Community acquired pneumonia Started on IV Zosyn ( for pseudomonal coverage in setting of Type 2 DM / hyperglycemia ) Blood CULTURE-NEGATIVE and sputum culture :Staph Aureus.MSSA Received Vancomycin ,Changed to Ceftriaxone and Doxycycline Solumedrol added and now on Prednisone Pulmonary consulted-appreciate input Has been on Zosyn -continue for now CT is worse Likely to have Bronchoscopy 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 Amiodarone stopped Cardiology is on board No acute cardiac issue now HYPERGLYCEMIA WITH TYPE 2 DM On Lantus 22 U HS Started on IV insulin protocol Pharmacy consulted for glycemic management Hb A1c 9.8 on 09/2017 Hb A1c 10.4 now Reasonably controlled [place] ON CKD STAGE 3 due to above cont IV fluid resuscitation follow PRP-renal function is improving Renal function is slightly worse today Renal function is wore today HYPONATREMIA : Due to hyperglycemia cont IVF with NSS follow PRP -normalized HX OF A FLUTTER : Rate and rhythm controlled Cont amiodarone INR elevated > 4 , Coumadin on hold INR 2.4on ,remains therapeutic INR a little high today Hold Coumadin for today ,INR 5.1 FULL CODE DISPOSITION ; PT/OT prior to discharge Medicine follow up with Dr Ward Prognosis is poor Vital Signs: Date Time Temp Pulse Resp B/P (MAP) Pulse Ox O2 Delivery O2 Flow Rate FiO2 01/01/18 11:24 75 18 99 Nasal Cannula 2.0 01/01/18 09:45 74 22 145/58 (87) 99 Nasal Cannula 3.0 01/01/18 08:00 Nasal Cannula 3.0 01/01/18 08:00 36.8 80 23 122/46 (71) 90 Nasal Cannula 3.0 01/01/18 07:28 77 18 96 Nasal Cannula 2.0 01/01/18 06:00 66 16 97 Nasal Cannula 3.0 01/01/18 05:00 66 16 146/64 (91) 99 Nasal Cannula 3.0 01/01/18 04:00 36.9 63 19 133/56 (81) 97 Nasal Cannula 3.0 01/01/18 04:00 96 Nasal Cannula 3.0 01/01/18 03:00 64 0 109/56 (73) 97 Nasal Cannula 3.0 01/01/18 02:00 65 12 116/47 (70) 96 Nasal Cannula 3.0 01/01/18 01:00 67 4 121/45 (70) 97 Nasal Cannula 3.0 01/01/18 00:00 36.9 72 12 128/47 (74) 97 Nasal Cannula 3.0 12/31/17 23:59 96 Nasal Cannula 3.0 12/31/17 23:10 73 18 96 Nasal Cannula 3.0 12/31/17 23:00 74 20 129/58 (81) 95 Nasal Cannula 3.0 12/31/17 22:01 36.6 70 19 132/51 (78) 97 Nasal Cannula 3.0 12/31/17 21:00 71 19 137/52 (80) 96 Nasal Cannula 3.0 12/31/17 20:07 96 Nasal Cannula 3.0 12/31/17 20:00 36.6 78 25 118/52 (74) 92 Nasal Cannula 3.0 12/31/17 19:28 70 18 96 Nasal Cannula 3.0 12/31/17 19:00 68 13 135/51 (79) 97 Nasal Cannula 3.0 12/31/17 18:00 67 5 116/42 (75) 97 12/31/17 17:00 73 19 109/51 (81) 95 12/31/17 16:01 73 27 127/64 (90) 96 12/31/17 16:00 75 16 98 12/31/17 16:00 92 Nasal Cannula 3.0 12/31/17 15:01 73 14 126/57 (73) 98 12/31/17 15:00 70 18 99 12/31/17 14:04 77 20 123/60 (93) 98 12/31/17 14:00 75 26 123/60 (81) 88 Nasal Cannula 6.0 12/31/17 14:00 72 23 98 12/31/17 13:01 74 25 128/60 (83) 98 12/31/17 13:00 74 22 97 12/31/17 12:01 83 18 141/55 (83) 80 12/31/17 12:00 78 22 141/55 (83) 92 Nasal Cannula 3.0 12/31/17 12:00 92 Nasal Cannula 3.0 12/31/17 12:00 82 15 90 12/31/17 11:59 81 12 141/62 (92) 92 Lab Results: Results Past 24 Hours Test 12/31/17 12:17 12/31/17 13:11 12/31/17 14:14 12/31/17 15:05 Range/Units Bedside Glucose 134 180 117 349 70-99 mg/dl Test 12/31/17 16:24 12/31/17 19:21 12/31/17 21:08 12/31/17 23:19 Range/Units Bedside Glucose 157 236 221 210 70-99 mg/dl Test 01/01/18 00:09 01/01/18 01:23 01/01/18 02:13 01/01/18 03:21 Range/Units Bedside Glucose 166 158 121 98 70-99 mg/dl Test 01/01/18 04:17 01/01/18 05:03 01/01/18 05:34 01/01/18 05:40 Range/Units Bedside Glucose 131 103 116 70-99 mg/dl Sodium Level 139 136-145 mmol/L Potassium Level 4.6 3.5-5.1 mmol/L Chloride Level 107 98-107 mmol/L Carbon Dioxide Level 24 21-32 mmol/L Anion Gap 8.0 3-11 mmol/L Blood Urea Nitrogen 42 7-18 mg/dl Creatinine 2.26 0.60-1.40 mg/dl Est Creatinine Clear Calc Drug Dose 25.8 ml/min Estimated GFR () 29.3 Estimated GFR (Non- 25.3 BUN/Creatinine Ratio 18.4 10-20 Random Glucose 114 70-99 mg/dl Calcium Level 7.8 8.5-10.1 mg/dl Phosphorus Level 3.5 2.5-4.9 mg/dl Magnesium Level 2.2 1.8-2.4 mg/dl Total Bilirubin 0.6 0.2-1 mg/dl Aspartate Amino Transf (AST/SGOT) 23 15-37 U/L Alanine Aminotransferase (ALT/SGPT) 27 12-78 U/L Alkaline Phosphatase 96 45-117 U/L Total Protein 5.9 6.4-8.2 gm/dl Albumin 2.2 3.4-5.0 gm/dl Globulin 3.7 2.5-4.0 gm/dl Albumin/Globulin Ratio 0.6 0.9-2 Chemistry Specimen Hemolysis Test 01/01/18 06:24 01/01/18 07:21 01/01/18 08:06 01/01/18 09:00 Range/Units Bedside Glucose 139 158 156 70-99 mg/dl White Blood Count 26.19 4.8-10.8 K/uL Red Blood Count 3.91 4.7-6.1 M/uL Hemoglobin 11.8 14.0-18.0 g/dL Hematocrit 36.1 42-52 % Mean Corpuscular Volume 92.3 80-100 fL Mean Corpuscular Hemoglobin 30.2 25-34 pg Mean Corpuscular Hemoglobin Concent 32.7 32-36 g/dl Platelet Count 144 130-400 K/uL Mean Platelet Volume 9.0 7.4-10.4 fL Neutrophils (%) (Auto) 94.2 % Lymphocytes (%) (Auto) 2.3 % Monocytes (%) (Auto) 2.6 % Eosinophils (%) (Auto) 0.0 % Basophils (%) (Auto) 0.0 % Neutrophils # (Auto) 24.65 1.4-6.5 K/uL Lymphocytes # (Auto) 0.61 1.2-3.4 K/uL Monocytes # (Auto) 0.68 0.11-0.59 K/uL Eosinophils # (Auto) 0.00 0-0.5 K/uL Basophils # (Auto) 0.01 0-0.2 K/uL RDW Standard Deviation 51.1 36.4-46.3 fL RDW Coefficient of Variation 15.2 11.5-14.5 % Immature Granulocyte % (Auto) 0.9 % Immature Granulocyte # (Auto) 0.24 0.00-0.02 K/uL Prothrombin Time 38.8 9.0-12.0 SECONDS Prothromb Time International Ratio 3.8 0.9-1.1 Test 01/01/18 09:11 01/01/18 09:19 01/01/18 10:20 Range/Units Blood Gas Sample Site L Brachial Bedside Blood Gas pH (LAB) 7.43 7.35-7.45 Bedside Blood Gas pCO2 (LAB) 40 35-46 mmHg Bedside Blood Gas pO2 (LAB) 81 80-95 mmHg Bedside Blood Gas HCO3 (LAB) 26 19-24 meq/L Bedside Blood Gas Total CO2 27 24-31 mEq/l Bedside Blood Gas Base Excess (LAB) 2.0 -9-1.8 meq/L Bedside Blood Gas O2 Saturation 96.0 90-95 % Santana Test Pass Oxygen Delivery Device Cannula Bedside Glucose 288 336 70-99 mg/dl
[2018-01-01] MEDS ORDERED: VORICONAZOLE 200 MG TAB PO ONE (12:16)
[2018-01-01] MEDS: AZITHROMYCIN IV 500 MG in DEXTROSE 5% 250ML 250 ML IV SCH (12:33)
--- NOTE | 2018-01-01 15:04 | Pharmacy Progress Note ---
Pharmacy Glycemic Short Note 2 Date of Service Jan 01, 2018. OUTPATIENT ANTIDIABETIC REGIMEN: * Lantus 22 units SQ daily at dinner * HbA1c: 10.4% (12/15/17) Test 12/31/17 15:05 12/31/17 16:24 12/31/17 19:21 12/31/17 21:08 Bedside Glucose 349 mg/dl (70-99) 157 mg/dl (70-99) 236 mg/dl (70-99) 221 mg/dl (70-99) Test 12/31/17 23:19 01/01/18 00:09 01/01/18 01:23 01/01/18 02:13 Bedside Glucose 210 mg/dl (70-99) 166 mg/dl (70-99) 158 mg/dl (70-99) 121 mg/dl (70-99) Test 01/01/18 03:21 01/01/18 04:17 01/01/18 05:03 01/01/18 05:34 Bedside Glucose 98 mg/dl (70-99) 131 mg/dl (70-99) 103 mg/dl (70-99) Random Glucose 114 mg/dl (70-99) Test 01/01/18 05:40 01/01/18 06:24 01/01/18 07:21 01/01/18 08:06 Bedside Glucose 116 mg/dl (70-99) 139 mg/dl (70-99) 158 mg/dl (70-99) 156 mg/dl (70-99) Test 01/01/18 09:19 01/01/18 10:20 01/01/18 11:22 01/01/18 12:59 Bedside Glucose 288 mg/dl (70-99) 336 mg/dl (70-99) 287 mg/dl (70-99) 298 mg/dl (70-99) ASSESSMENT: * See progress note from 12/20/17 for background info, in short: * Patient transferred to ICU yesterday, pt doing about the same, but Solu- medrol was decreased and Insulin drip was held overnight for BSG at goal, so will try to transition onto SQ regimen today. * Insulin drip running from 2.9-0.7units/hr, prior to holding over night for about 6 hours, then resuming, and BSG went back up as high as 336mg/dl after AM dose of solu-medrol * Pt remained on Lantus while on insulin drip. * Accuchecks overnight d/t IV steroids and coming off of insulin drip. * ADA & AACE recommend a goal blood sugar range 140-180 mg/dl for the majority of critically ill patients. PLAN FOR INPATIENT GLYCEMIC CONTROL: * Basal insulin - * Lantus 35 units SQ x 1 dose this AM - DISCONTINUE IV insulin infusion at 1300 today * Lantus per BSG HS * BSG < 140mg/dl - 0 units * BSG 140-200mg/dl - 15 units * BSG > 200mg/dl - 20 units * Bolus insulin * Novolog ACHS while diet ordered and Q6 when NPO and overnight at 0000 and 0400 * Correction Factor: 10 mg/dL/unit * Carbohydrate ratio of 1 unit per 3 grams of carbs consumed * Goal range: 140-180 mg/dL PLAN FOR DISCHARGE: * Current A1c (10.4%) indicates sub-optimal glycemic control as an outpatient. * CDE spoke with patient this admission and it seems that he is compliant with his Lantus. * Consider adding prandial coverage or increasing Lantus on discharge (although , patient reports reasonable fasting BSGs). * Recommend f/u with PCP for DM management after discharge to optimize A1c. * Recommend increase in SMBG after discharge until BSGs improve.
[2018-01-01] MEDS ORDERED: INSULIN ASPART 100 UNITS/ML 3 ML PEN SC SCH (16:00)
[2018-01-01] MEDS: METHYLPREDNISOLONE IV 20 MG in SYRINGE 0 ML IV SCH (20:35)
[2018-01-01] MEDS: LINEZOLID 600 MG TAB PO SCH (20:35)
[2018-01-01] MEDS: VORICONAZOLE 200 MG TAB PO SCH (20:37)
[2018-01-01] MEDS ORDERED: INSULIN GLARGINE SOLOSTAR 100 UNITS/ML 3 ML PEN SC SCH (21:00)
[2018-01-02] VITALS (33 sets, daily range): BP systolic 107–143; BP diastolic 46–66; PULSE 64–85; TEMP 36.4–36.8; O2SAT 91–99
[2018-01-02] MEDS: INSULIN ASPART 100 UNITS/ML 3 ML PEN SC SCH ×7 (04:00→20:53)
[2018-01-02] MEDS: PIPERACILL/TAZOBAC IV 3.375 GM in DEXTROSE 5% 100ML 100 ML IV SCH ×3 (05:29→20:45)
[2018-01-02] MEDS: IPRATROPIUM BROMIDE NEB SOLN 0.02% 2.5 ML VIAL INH SCH ×4 (07:56→20:08)
[2018-01-02] MEDS: LEVALBUTEROL 1.25MG/0.5ML NEB INH SCH ×4 (07:56→20:08)
[2018-01-02] MEDS: INSULIN GLARGINE SOLOSTAR 100 UNITS/ML 3 ML PEN SC SCH ×2 (08:11→20:54)
[2018-01-02] MEDS: METHYLPREDNISOLONE IV 20 MG in SYRINGE 0 ML IV SCH (08:15)
[2018-01-02] MEDS: MAGNESIUM CHLORIDE 64MG DELAYED REL TAB PO SCH (08:15)
[2018-01-02] MEDS: LINEZOLID 600 MG TAB PO SCH ×2 (08:16→20:47)
[2018-01-02] MEDS: TORSEMIDE 20 MG TAB PO SCH (08:16)
[2018-01-02] MEDS: POTASSIUM CHLORIDE 10 MEQ TABCR PO SCH (08:16)
[2018-01-02] MEDS: TAMSULOSIN HCL 0.4 MG CAP PO SCH ×2 (08:16→20:46)
[2018-01-02] MEDS: GUAIFENESIN 600 MG TABCR PO SCH ×2 (08:16→20:49)
[2018-01-02] MEDS: FINASTERIDE 5 MG TAB PO SCH (08:16)
[2018-01-02] MEDS: VORICONAZOLE 200 MG TAB PO SCH ×2 (08:17→20:49)
[2018-01-02] MEDS: CHOLECALCIFEROL 1000 INTER.UNIT TAB PO SCH (08:17)
[2018-01-02] MEDS: PANTOprazole SOD 40 MG TAB PO SCH (08:17)
[2018-01-02] MEDS: AZITHROMYCIN IV 500 MG in DEXTROSE 5% 250ML 250 ML IV SCH (09:44)
--- NOTE | 2018-01-02 12:38 | Progress Note ---
Internal Med Progress Note Date of Service: Jan 02, 2018. Provider Documentation: SUBJECTIVE: The patient was seen and examined Cough for 1 week ,no fever,chills or Body aches with it Remains very weak and lethargic Has not had any significant improvement for the last weak Has had CT of the Chest and is under Pulmonary and cardiology care SOB with Desaturation with minimal activity Very slow improvement -denies any symptoms except generalized weakness 12/30 Condition got worse this AM Very SOB with decreased saturation Was evaluated by Pulmonary and advised to transfer to ICU 12/31 A little better this AM Seems to have a lot of mucous secretions in Bronchial tree Coughing up grayish stuffs 01/01 Not any better Remains generally weak and lethargica Denies any pain 01/02 Not any better Not any distress at rest OBJECTIVE: Vital Signs-as noted below Exam: General-Minimal SOB at rest with lethargy Eyes-normal ENT-normal Neck-supple Lungs-decreased breath sound at the back Moderate crackles bilaterally at the bases more on the left than the right Heart-Regular,no murmur Abdomen-Benign,no masses,bowel sound present Extremities-Bilateral UE Edema None in legs Neuro-AAOx3 Generally weak Lab data as noted below. ASSESSMENT & PLAN: Assessment and Plan ACUTE HYPOXEMIC RESPIRATORY FAILURE-Progressing towards ARDS Presented with SOB /cough for 1 week and noted to have spo2 86 in RA , improved with supplemental 02 Secondary to pneumonia Steroid avoided as no significant wheeze noted and the patient is diabetic Cont wean off 02 as respiratory status improves Influenza A positive-On Flu isolation. Not been put on any Flu medications due to symptoms >1 week and no acute flu symptoms now Clinically a little better Requiring Face musk to maintain Saturation Remains stable -SOB with desaturation on ambulation Very SOB this AM Will continue Solumedrol and transfer to ICU Discussed with the Pulmonary and Son Pulmonary Toileting might be beneficial and getting Chest PT May need Bronchoscopy to suction out the secretions BILATERAL MULTILOBAR PNEUMONIA Community acquired pneumonia Started on IV Zosyn ( for pseudomonal coverage in setting of Type 2 DM / hyperglycemia ) Blood CULTURE-NEGATIVE and sputum culture :Staph Aureus.MSSA Received Vancomycin ,Changed to Ceftriaxone and Doxycycline Solumedrol added and now on Prednisone Pulmonary consulted-appreciate input Has been on Zosyn -continue for now Repeat CT of the Chest shows worsening of the Infiltration Zosyn discontinued and Zyvox and Azithromycin added for broader coverage og antibiotics Clinically stable 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 Amiodarone stopped Cardiology is on board No acute cardiac issue now HYPERGLYCEMIA WITH TYPE 2 DM On Lantus 22 U HS Started on IV insulin protocol Pharmacy consulted for glycemic management Hb A1c 9.8 on 09/2017 Hb A1c 10.4 now Reasonably controlled [place] ON CKD STAGE 3 due to above cont IV fluid resuscitation follow PRP-renal function is improving Renal function is slightly worse today Renal function is pending for today HYPONATREMIA : Due to hyperglycemia cont IVF with NSS follow PRP -normalized HX OF A FLUTTER : Rate and rhythm controlled Cont amiodarone INR elevated > 4 , Coumadin on hold INR 2.4on ,remains therapeutic INR a little high today Hold Coumadin for today ,INR 5.1 FULL CODE DISPOSITION ; PT/OT prior to discharge Medicine follow up with Dr Ward Prognosis is poor Vital Signs: Date Time Temp Pulse Resp B/P (MAP) Pulse Ox O2 Delivery O2 Flow Rate FiO2 01/02/18 11:47 73 18 91 Nasal Cannula 2.5 01/02/18 10:00 71 16 143/62 (89) 98 Nasal Cannula 4.0 01/02/18 09:00 79 22 127/52 (77) 01/02/18 08:00 36.5 78 23 120/59 (79) 97 Nasal Cannula 6.0 01/02/18 08:00 97 Nasal Cannula 6.0 01/02/18 07:56 79 18 93 Nasal Cannula 4.0 01/02/18 07:00 67 17 124/66 (85) 01/02/18 06:00 67 14 127/58 (81) 95 Nasal Cannula 2.0 01/02/18 05:00 70 21 114/52 (72) 91 Nasal Cannula 2.0 01/02/18 04:19 96 Nasal Cannula 2.0 01/02/18 04:00 64 18 110/50 (70) Nasal Cannula 2.0 01/02/18 03:05 67 19 119/52 (74) 95 Nasal Cannula 2.0 01/02/18 03:01 70 18 119/52 (74) 95 Nasal Cannula 2.0 01/02/18 01:01 66 21 120/46 (70) 96 Nasal Cannula 2.0 01/02/18 00:30 96 Nasal Cannula 2.0 01/02/18 00:29 36.8 67 19 118/52 (74) 96 Nasal Cannula 2.0 01/01/18 23:35 89 16 94/56 (69) 87 Nasal Cannula 2.0 01/01/18 22:00 79 26 117/52 (73) 96 Nasal Cannula 2.0 01/01/18 21:00 75 21 133/57 (82) 94 Nasal Cannula 2.0 01/01/18 20:01 96 Nasal Cannula 2.0 01/01/18 20:00 36.7 81 17 117/51 (73) 93 Nasal Cannula 2.0 01/01/18 19:19 105 18 95 Nasal Cannula 2.0 01/01/18 19:00 74 26 123/59 (80) 92 Nasal Cannula 2.0 01/01/18 18:00 74 25 110/44 (66) 95 Nasal Cannula 2.0 01/01/18 16:00 36.8 68 19 104/44 (64) 99 Nasal Cannula 2.0 01/01/18 16:00 Nasal Cannula 2.0 01/01/18 14:49 69 18 100 Nasal Cannula 4.0 01/01/18 14:00 74 20 129/57 (81) 95 Nasal Cannula 3.0 Lab Results: Results Past 24 Hours Test 01/01/18 12:59 01/01/18 15:10 01/01/18 16:43 01/01/18 20:33 Range/Units Bedside Glucose 298 237 89 107 70-99 mg/dl Test 01/02/18 00:08 01/02/18 04:16 01/02/18 04:44 01/02/18 06:49 Range/Units Bedside Glucose 76 141 124 70-99 mg/dl Test 01/02/18 11:03 01/02/18 11:39 Range/Units Bedside Glucose 385 376 70-99 mg/dl Microbiology Results 01/02/18 Gram Stain, Received Pending 01/02/18 Sputum Culture, Received Pending
[2018-01-02] MEDS ORDERED: PROPOFOL IV EMULSION 10 MG/ML 100 ML VIAL IV SCH (12:39)
[2018-01-02 14:04] LABS: HEMATOCRIT 40.1 % (42-52); HEMOGLOBIN 13.1 g/dL (14.0-18.0); MEAN CELL VOLUME 93.3 fL (80-100); MEAN CORPUSCULAR HEMOGLOBIN 30.5 pg (25-34); MEAN CORPUSCULAR HGB CONC 32.7 g/dl (32-36); MEAN PLATELET VOLUME 9.4 fL (7.4-10.4); PLATELET COUNT 158 K/uL (130-400); RED CELL DISTRIBUTION WIDTH CV 15.4 % (11.5-14.5); RED CELL DISTRIBUTION WIDTH SD 51.6 fL (36.4-46.3); WHITE BLOOD COUNT 22.76 K/uL (4.8-10.8)
[2018-01-02 14:29] LABS: CALCIUM 7.8 mg/dl (8.5-10.1); CREATININE 2.61 mg/dl (0.60-1.40); PHOSPHORUS 4.6 mg/dl (2.5-4.9); POTASSIUM 4.7 mmol/L (3.5-5.1)
[2018-01-02 14:31] LABS: INR 3.7 (0.9-1.1)
[2018-01-02 14:42] LABS: BASO ABS # 0.01 K/uL (0-0.2); IG# 0.19 K/uL (0.00-0.02); LYMPH % 1.7 %; LYMPH ABS # 0.38 K/uL (1.2-3.4); MONO % 2.3 %; MONO ABS # 0.53 K/uL (0.11-0.59); NEUT % 95.2 %; NEUT ABS # 21.65 K/uL (1.4-6.5)
--- NOTE | 2018-01-02 14:56 | Pharmacy Progress Note ---
Glycemic Control Progress Note Date of Service Jan 02, 2018. Scope Glycemic Pharmacist consulted for glycemic control to write orders per [facility] inpatient glycemic control protocol. Objective Accuchecks BSG (last 24hrs): Test 01/01/18 15:10 01/01/18 16:43 01/01/18 20:33 01/02/18 00:08 Bedside Glucose 237 mg/dl (70-99) 89 mg/dl (70-99) 107 mg/dl (70-99) 76 mg/dl (70-99) Test 01/02/18 04:16 01/02/18 06:49 01/02/18 11:03 01/02/18 11:39 Bedside Glucose 141 mg/dl (70-99) 124 mg/dl (70-99) 385 mg/dl (70-99) 376 mg/dl (70-99) Test 01/02/18 13:50 Random Glucose 484 mg/dl (70-99) HbA1c: Test 12/15/17 15:40 Hemoglobin A1c 10.4 % (4.5-5.6) H Recent Pertinent Medications The patient is currently receiving: * Basal insulin: Lantus 35 units every 24 hours * Correctional Insulin: Novolog Correction per scale ACHS Goal Range: Low 140 mg/dL - High 180 mg/dL Correction Factor: 12 mg/dL/unit * Prandial insulin: Per carb ratio of 1 unit per 4 grams CHO consumed Assessment & Plan ASSESSMENT: * See progress note from 01/01 for more background info, in short: * Pt receiving SQ basal bolus insulin regimen for hyperglycemia secondary to baseline DM (outpatient regimen on hold),stress/infection, and IV steroids * Solu-medrol decrease to 20mg IV Q12H and discontinued after this mornings dose * Patient started on more antibiotics in addition to Zosyn IV, now also on IV Azithromycin, and PO Zyvox and Voriconazole * Despite blood sugars coming down into range yesterday afternoon/night and this morning when transitioned off of insulin drip over the past 24 hours, patient's blood sugar has been rising all day, and is now up to 484mg/dl, therefore pt will need to be placed back on IV insulin drip. PLAN FOR INPATIENT GLYCEMIC CONTROL: * Starting IV insulin infusion per moderate stress protocol * Goal Range 120 - 200 mg/dl - in hopes to minimizing fingersticks * In the critical care setting, continuous IV insulin infusion has been shown to be the best method for achieving glycemic targets. * Basal insulin * Lantus 35 units SQ daily - continue while on insulin drip * Bolus insulin * NovoLog per scale PCHS * FIXED Nutritional / Prandial insulin per carb ratio of 1 unit per 4 grams CHO consumed * Please note that the plan above was derived based on current level of insulin resistance and hospital stress. These recommendations are appropriate for inpatient admission only. Plan of care upon discharge will need to be reassessed to avoid potential outpatient hypo/hyperglycemia. Thank you.
[2018-01-02] MEDS ORDERED: INSULIN REGULAR 250 UNITS in SODIUM CHLORIDE 0.9% 250ML 250 ML IV SCH (15:00)
[2018-01-02] MEDS ORDERED: INSULIN HUMAN REGULAR IV BOLUS 2 UNIT in SYRINGE 0 ML IV SCH (15:00)
[2018-01-02] MEDS ORDERED: INSULIN HUMAN REGULAR IV BOLUS 5 UNIT in SYRINGE 0 ML IV SCH (16:00)
[2018-01-02] MEDS ORDERED: INSULIN ASPART 100 UNITS/ML 3 ML PEN SC SCH (17:15)
--- NOTE | 2018-01-02 19:47 | Critical Care Progress Note ---
Critical Care Progress Note Date of Service Jan 02, 2018. Attending Dr. Rudolph Subjective No significant issues today. Remains mildly hypoxic Unable to insert PICC. Peripheral IV placed Objective general: Elderly male, NAD HEENT: NC/AT Lungs: Mostly clear to auscultation, coarse over the right lung, no rhonchi or wheezing CVS: S1S2 reg Abd: Soft Ext: No edema SONOGRAPHY TECHNICIAN: AAO x 3, no deficit Assessment & Plan Respiratory failure secondary to multi-lobar MSSA pneumonia, with RUL predominance, post influenza A A-flutter DM-2 CKD Plan: He was treated appropriately for the bacterial pneumonia, but has persistent lung disease, with no clinical or radiographic resolution. Patient did not improve despite long course of Zosyn. CT chest today showed some worsening of the parenchymal disease. Worsening leukocytosis, even though he has been on steroids for a long time. Discontinued the steroids Abx escalated, added Zyvox and azithromycin Also added voriconazole as this could represent a fungal pneumonia, given negative procalcitonin, steroid use Steroids stopped There is also a question of possible amiodarone lung toxicity, it has been held Continue Mucinex Supplemental O2 Bronchodilators Chest physiotherapy Glycemic control. Given the lack of IV access, patient for now doesn't want to be stuck for another peripheral IV (TLC not an option for now given elevated INR ), will hold off on insulin drip and be more aggressive with insulin coverage. Contemplating bronchoscopy next week if he doesn't improve Hold diuretics for now, had some decline in renal function. BNP also normal Hold Coumadin today as well, INR supratherapeutic at 3.7, but started to come down. No evidence of bleeding Critical care time spent with patient, family, reviewing chart, discussing with consultants, greater than 40 minutes Consults & Procedures Consultants: Cardiology - Dr Piña Pulmonary - Dr Funk Data Medications: Current Inpatient Medications Medications (Trade) Dose Ordered Sig/Krystal Route Start Time Stop Time Status Last Admin Dose Admin Miscellaneous Information (Consult Glycemic Management Pharmacy) 1 ea UD PRN N/A 12/15/17 18:01 01/14/18 18:00 Acetaminophen (Tylenol Tab) 650 mg Q4H PRN PO 12/15/17 17:15 01/14/18 17:14 12/18/17 05:52 650 MG Al Hydrox/Mg Hydrox/Simethicone (Maalox Max Susp) 15 ml Q4H PRN PO 12/15/17 17:15 01/14/18 17:14 Magnesium Hydroxide (Milk Of Magnesia Susp) 30 ml Q12H PRN PO 12/15/17 17:15 01/14/18 17:14 Ondansetron HCl (Zofran Inj) 4 mg Q6H PRN IV 12/15/17 17:15 01/14/18 17:14 Polyethylene (Miralax Powder Packet) 17 gm DAILY PRN PO 12/15/17 17:15 01/14/18 17:14 Cholecalciferol (Vitamin D Tab) 2,000 inter.unit DAILY PO 12/16/17 09:00 01/15/18 08:59 01/02/18 08:17 2,000 INTER.UNIT Pantoprazole Sodium (Protonix Tab) 40 mg QAM PO 12/16/17 09:00 01/15/18 08:59 01/02/18 08:17 40 MG Ipratropium [place] (Atrovent 0.02% 0.5MG/2.5ML Neb) 0.5 mg Q2H PRN INH 12/15/17 21:15 01/14/18 21:14 12/31/17 23:10 0.5 MG Levalbuterol (Xopenex 1.25MG/ 0.5ML Neb) 1.25 mg Q2H PRN INH 12/15/17 21:15 01/14/18 21:14 12/31/17 23:10 1.25 MG Magnesium Chloride (Slow-Mag Tab) 128 mg DAILY PO 12/17/17 10:45 01/16/18 10:44 01/02/18 08:15 128 MG Warfarin Sodium (Coumadin Tab) 3 mg DAILY@1600 PO 12/21/17 16:00 01/19/18 15:59 Future Hold 12/29/17 15:32 3 MG Guaifenesin (Mucinex Contr Rel Tab) 600 mg Q12 PO 12/21/17 21:00 01/20/18 20:59 01/02/18 08:16 600 MG Ipratropium [place] (Atrovent 0.02% 0.5MG/2.5ML Neb) 0.5 mg Q4RWA INH 12/22/17 12:00 01/15/18 02:59 01/02/18 15:47 0.5 MG Levalbuterol (Xopenex 1.25MG/ 0.5ML Neb) 1.25 mg Q4RWA INH 12/22/17 12:00 01/15/18 02:59 01/02/18 15:47 1.25 MG Miconazole Nitrate (Desenex Powder) 1 appln PRN PRN EXT 12/26/17 03:30 01/25/18 03:29 Miscellaneous Information (Consult) 1 ea UD PRN N/A 12/26/17 16:00 01/25/18 15:59 Tamsulosin HCl (Flomax Cap) 0.4 mg BID PO 12/26/17 21:00 01/15/18 08:59 01/02/18 08:16 0.4 MG Finasteride (Proscar Tab) 5 mg QAM PO 12/27/17 09:00 01/26/18 08:59 01/02/18 08:16 5 MG Glucose (Glucose 40% Gel) 15-30 GRAMS 15 GRAMS... UD PRN PO 12/27/17 16:45 01/26/18 16:44 Glucose (Glucose Chew Tab) 4-8 Tablets 4 Tabl... UD PRN PO 12/27/17 16:45 01/26/18 16:44 12/27/17 16:46 4 TABS Dextrose (Dextrose 50% 50ML Syringe) 25-50ML OF 50% DW IV FOR... UD PRN IV 12/27/17 16:45 01/26/18 16:44 Glucagon (Glucagon Inj) 1 mg UD PRN SQ 12/27/17 16:45 01/26/18 16:44 Piperacillin Sod/ Tazobactam Sod 3.375 gm/Dextrose 115 ml @ 28.75 mls/ hr Q8H IV 12/29/17 08:00 01/05/18 07:59 01/02/18 14:06 28.75 MLS/HR Torsemide (Demadex Tab) 20 mg QAM PO 12/30/17 09:00 01/29/18 08:59 01/02/18 08:16 20 MG Potassium Chloride (Klor-Con M10) 10 meq DAILY PO 12/30/17 09:00 01/29/18 08:59 01/02/18 08:16 10 MEQ Insulin Glargine (Lantus Solostar Pen) 35 units QAM SC 01/01/18 09:00 01/31/18 08:59 01/02/18 08:11 35 UNITS Linezolid (Zyvox Tab) 600 mg BID PO 01/01/18 21:00 01/08/18 20:59 01/02/18 08:16 600 MG Azithromycin 500 mg/Dextrose 255 ml @ 125 mls/hr DAILY IV 01/01/18 11:30 01/08/18 11:29 01/02/18 09:44 125 MLS/HR Voriconazole (Vfend Tab) 300 mg BID PO 01/01/18 21:00 01/08/18 20:59 01/02/18 08:17 300 MG Insulin Glargine (Lantus Solostar Pen) see protocol HS SC 01/02/18 21:00 02/01/18 20:59 Insulin Aspart (novoLOG ASPART) SLIDING SCALE ACHS SC 01/02/18 16:00 02/01/18 15:59 01/02/18 17:26 14 UNITS Insulin Aspart (novoLOG ASPART) SLIDING SCALE 0000,0400 ME 01/03/18 00:00 02/02/18 00:00 I & O: 24-Hour Column 01/03/18 07:59 Intake Total 844 ml Output Total 600 ml Balance 244 ml Vital Signs: Date Time Temp Pulse Resp B/P (MAP) Pulse Ox O2 Delivery O2 Flow Rate FiO2 01/02/18 18:01 73 20 124/50 (74) 98 01/02/18 17:01 82 24 109/51 (70) 95 01/02/18 16:01 36.6 76 21 141/61 (87) 98 Nasal Cannula 6.0 01/02/18 16:00 97 Nasal Cannula 6.0 01/02/18 15:47 70 18 99 Nasal Cannula 6.0 01/02/18 15:01 73 20 135/62 (86) 99 01/02/18 14:00 77 24 131/61 (84) 97 Nasal Cannula 4.0 01/02/18 13:00 76 25 98 01/02/18 12:00 36.4 85 22 92 Nasal Cannula 4.0 01/02/18 12:00 97 Nasal Cannula 4.0 01/02/18 11:47 73 18 91 Nasal Cannula 2.5 01/02/18 11:01 70 29 133/64 (87) 96 01/02/18 11:00 68 16 97 01/02/18 10:00 71 16 143/62 (89) 98 Nasal Cannula 4.0 01/02/18 09:00 79 22 127/52 (77) 01/02/18 08:00 36.5 78 23 120/59 (79) 97 Nasal Cannula 6.0 01/02/18 08:00 97 Nasal Cannula 6.0 01/02/18 07:56 79 18 93 Nasal Cannula 4.0 01/02/18 07:00 67 17 124/66 (85) 01/02/18 06:00 67 14 127/58 (81) 95 Nasal Cannula 2.0 01/02/18 05:00 70 21 114/52 (72) 91 Nasal Cannula 2.0 01/02/18 04:19 96 Nasal Cannula 2.0 01/02/18 04:00 64 18 110/50 (70) Nasal Cannula 2.0 01/02/18 03:05 67 19 119/52 (74) 95 Nasal Cannula 2.0 01/02/18 03:01 70 18 119/52 (74) 95 Nasal Cannula 2.0 01/02/18 01:01 66 21 120/46 (70) 96 Nasal Cannula 2.0 01/02/18 00:30 96 Nasal Cannula 2.0 01/02/18 00:29 36.8 67 19 118/52 (74) 96 Nasal Cannula 2.0 01/01/18 23:35 89 16 94/56 (69) 87 Nasal Cannula 2.0 01/01/18 22:00 79 26 117/52 (73) 96 Nasal Cannula 2.0 01/01/18 21:00 75 21 133/57 (82) 94 Nasal Cannula 2.0 01/01/18 20:01 96 Nasal Cannula 2.0 01/01/18 20:00 36.7 81 17 117/51 (73) 93 Nasal Cannula 2.0 Laboratory Results: Last 24 Hours Test 01/01/18 20:33 01/02/18 00:08 01/02/18 04:16 01/02/18 06:49 Bedside Glucose 107 mg/dl 76 mg/dl 141 mg/dl 124 mg/dl Test 01/02/18 11:03 01/02/18 11:39 01/02/18 13:50 01/02/18 16:32 Bedside Glucose 385 mg/dl 376 mg/dl 475 mg/dl White Blood Count 22.76 K/uL Red Blood Count 4.30 M/uL Hemoglobin 13.1 g/dL Hematocrit 40.1 % Mean Corpuscular Volume 93.3 fL Mean Corpuscular Hemoglobin 30.5 pg Mean Corpuscular Hemoglobin Concent 32.7 g/dl Platelet Count 158 K/uL Mean Platelet Volume 9.4 fL Neutrophils (%) (Auto) 95.2 % Lymphocytes (%) (Auto) 1.7 % Monocytes (%) (Auto) 2.3 % Eosinophils (%) (Auto) 0.0 % Basophils (%) (Auto) 0.0 % Neutrophils # (Auto) 21.65 K/uL Lymphocytes # (Auto) 0.38 K/uL Monocytes # (Auto) 0.53 K/uL Eosinophils # (Auto) 0.00 K/uL Basophils # (Auto) 0.01 K/uL RDW Standard Deviation 51.6 fL RDW Coefficient of Variation 15.4 % Immature Granulocyte % (Auto) 0.8 % Immature Granulocyte # (Auto) 0.19 K/uL Prothrombin Time 38.1 SECONDS Prothromb Time International Ratio 3.7 Sodium Level 134 mmol/L Potassium Level 4.7 mmol/L Chloride Level 97 mmol/L Carbon Dioxide Level 27 mmol/L Anion Gap 9.8 mmol/L Blood Urea Nitrogen 49 mg/dl Creatinine 2.61 mg/dl Est Creatinine Clear Calc Drug Dose 22.3 ml/min Estimated GFR () 24.7 Estimated GFR (Non- 21.3 BUN/Creatinine Ratio 18.9 Random Glucose 484 mg/dl Calcium Level 7.8 mg/dl Phosphorus Level 4.6 mg/dl Magnesium Level 2.1 mg/dl Beta-Hydroxybutyric Acid 3.38 mg/dL Procalcitonin 0.16 ng/ml
[2018-01-03] VITALS (35 sets, daily range): BP systolic 103–140; BP diastolic 44–64; PULSE 63–84; TEMP 36.4–37; O2SAT 88–99
[2018-01-03] MEDS: INSULIN ASPART 100 UNITS/ML 3 ML PEN SC SCH ×6 (04:00→20:43)
[2018-01-03] MEDS: PIPERACILL/TAZOBAC IV 3.375 GM in DEXTROSE 5% 100ML 100 ML IV SCH ×3 (05:15→20:43)
[2018-01-03 05:57] LABS: HEMATOCRIT 36.5 % (42-52); HEMOGLOBIN 12.1 g/dL (14.0-18.0); MEAN CORPUSCULAR HEMOGLOBIN 30.2 pg (25-34); MEAN CORPUSCULAR HGB CONC 33.2 g/dl (32-36); MEAN PLATELET VOLUME 9.1 fL (7.4-10.4); PLATELET COUNT 150 K/uL (130-400); RED CELL DISTRIBUTION WIDTH CV 15.3 % (11.5-14.5); RED CELL DISTRIBUTION WIDTH SD 50.9 fL (36.4-46.3); WHITE BLOOD COUNT 22.33 K/uL (4.8-10.8)
[2018-01-03 06:18] LABS: INR 4.4 (0.9-1.1)
[2018-01-03 06:22] LABS: ALBUMIN 2.1 gm/dl (3.4-5.0); CALCIUM 7.6 mg/dl (8.5-10.1); CREATININE 2.3 mg/dl (0.60-1.40); POTASSIUM 4.3 mmol/L (3.5-5.1)
[2018-01-03 06:45] LABS: PHOSPHORUS 4.4 mg/dl (2.5-4.9); TOTAL PROTEIN 5.3 gm/dl (6.4-8.2)
[2018-01-03 06:54] LABS: BASO ABS # 0.01 K/uL (0-0.2); IG# 0.24 K/uL (0.00-0.02); LYMPH % 5.9 %; LYMPH ABS # 1.32 K/uL (1.2-3.4); MONO ABS # 0.44 K/uL (0.11-0.59); NEUT ABS # 20.32 K/uL (1.4-6.5)
[2018-01-03] MEDS: IPRATROPIUM BROMIDE NEB SOLN 0.02% 2.5 ML VIAL INH SCH ×4 (07:19→20:01)
[2018-01-03] MEDS: LEVALBUTEROL 1.25MG/0.5ML NEB INH SCH ×4 (07:19→20:01)
[2018-01-03] MEDS: LINEZOLID 600 MG TAB PO SCH ×2 (08:14→20:43)
[2018-01-03] MEDS: GUAIFENESIN 600 MG TABCR PO SCH ×2 (08:14→20:43)
[2018-01-03] MEDS: CHOLECALCIFEROL 1000 INTER.UNIT TAB PO SCH (08:14)
[2018-01-03] MEDS: PANTOprazole SOD 40 MG TAB PO SCH (08:15)
[2018-01-03] MEDS: VORICONAZOLE 200 MG TAB PO SCH ×2 (08:15→20:43)
[2018-01-03] MEDS: TAMSULOSIN HCL 0.4 MG CAP PO SCH ×2 (08:16→20:43)
[2018-01-03] MEDS: MAGNESIUM CHLORIDE 64MG DELAYED REL TAB PO SCH (08:16)
[2018-01-03] MEDS: POTASSIUM CHLORIDE 10 MEQ TABCR PO SCH (08:16)
[2018-01-03] MEDS: AZITHROMYCIN IV 500 MG in DEXTROSE 5% 250ML 250 ML IV SCH (08:17)
[2018-01-03] MEDS: FINASTERIDE 5 MG TAB PO SCH (08:17)
[2018-01-03] MEDS: TORSEMIDE 20 MG TAB PO SCH (08:17)
[2018-01-03] MEDS: INSULIN GLARGINE SOLOSTAR 100 UNITS/ML 3 ML PEN SC SCH ×2 (08:34→20:43)
--- NOTE | 2018-01-03 10:26 | DIAGNOSTIC IMAGING REPORT ---
BILATERAL LOWER EXTREMITY VENOUS DOPPLER CLINICAL HISTORY: refractory hypoxia COMPARISON STUDY: No previous studies for comparison. TECHNIQUE: Sonography of the deep venous system of the bilateral lower extremities was performed. Compression and augmentation were evaluated. FINDINGS: There is deep venous thrombus within the right popliteal and peroneal veins. There is no deep venous thrombus within the left lower extremity.. IMPRESSION: Age indeterminate deep venous thrombus within the right popliteal and peroneal veins. Electronically signed by: Taye Estrella M.D. 01/03/2018 10:24 AM Dictated Date/Time: 01/03/2018 10:22 AM
[2018-01-03] MEDS ORDERED: INSULIN HUMAN REGULAR IV BOLUS 5 UNIT in SYRINGE 0 ML IV SCH (15:00)
--- NOTE | 2018-01-03 15:35 | Progress Note ---
Internal Med Progress Note Date of Service: Jan 03, 2018. Provider Documentation: SUBJECTIVE: The patient was seen and examined Cough for 1 week ,no fever,chills or Body aches with it Remains very weak and lethargic Has not had any significant improvement for the last weak Has had CT of the Chest and is under Pulmonary and cardiology care SOB with Desaturation with minimal activity Very slow improvement -denies any symptoms except generalized weakness 12/30 Condition got worse this AM Very SOB with decreased saturation Was evaluated by Pulmonary and advised to transfer to ICU 12/31 A little better this AM Seems to have a lot of mucous secretions in Bronchial tree Coughing up grayish stuffs 01/01 Not any better Remains generally weak and lethargica Denies any pain 01/02- Not any better Not any distress at rest Remains very weak and lethargic OBJECTIVE: Vital Signs-as noted below Exam: General-Minimal SOB at rest with lethargy Eyes-normal ENT-normal Neck-supple Lungs-decreased breath sound at the back Moderate crackles bilaterally at the bases more on the left than the right Heart-Regular,no murmur Abdomen-Benign,no masses,bowel sound present Extremities-Bilateral UE Edema None in legs Neuro-AAOx3 Generally weak Lab data as noted below. ASSESSMENT & PLAN: Assessment and Plan ACUTE HYPOXEMIC RESPIRATORY FAILURE-Progressing towards ARDS Presented with SOB /cough for 1 week and noted to have spo2 86 in RA , improved with supplemental 02 Secondary to pneumonia Steroid avoided as no significant wheeze noted and the patient is diabetic Cont wean off 02 as respiratory status improves Influenza A positive-On Flu isolation. Not been put on any Flu medications due to symptoms >1 week and no acute flu symptoms now Clinically a little better Requiring Face musk to maintain Saturation Remains stable -SOB with desaturation on ambulation Very SOB this AM Will continue Solumedrol and transfer to ICU Discussed with the Pulmonary and Son Pulmonary Toileting might be beneficial and getting Chest PT No plan for Bronchoscopy yet BILATERAL MULTILOBAR PNEUMONIA Community acquired pneumonia Started on IV Zosyn ( for pseudomonal coverage in setting of Type 2 DM / hyperglycemia ) Blood CULTURE-NEGATIVE and sputum culture :Staph Aureus.MSSA Received Vancomycin ,Changed to Ceftriaxone and Doxycycline Solumedrol added and now on Prednisone-discontinued on 01/02/18 Pulmonary consulted-appreciate input Has been on Zosyn -continue for now Repeat CT of the Chest shows worsening of the Infiltration Zosyn discontinued and Zyvox and Azithromycin added for broader coverage og antibiotics Clinically stable but critical 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 Amiodarone stopped Cardiology is on board No acute cardiac issue now HYPERGLYCEMIA WITH TYPE 2 DM On Lantus 22 U HS Started on IV insulin protocol Pharmacy consulted for glycemic management Hb A1c 9.8 on 09/2017 Hb A1c 10.4 now Reasonably controlled [place] ON CKD STAGE 3 due to above cont IV fluid resuscitation follow PRP-renal function is improving Renal function is slightly worse today Renal function is pending for today -a little better today HYPONATREMIA : Due to hyperglycemia cont IVF with NSS follow PRP -normalized HX OF A FLUTTER : Rate and rhythm controlled Cont amiodarone INR elevated > 4 , Coumadin on hold INR 2.4on ,remains therapeutic INR a little high today Hold Coumadin for today ,INR 5.1 FULL CODE DISPOSITION ; PT/OT prior to discharge Medicine follow up with Dr Ward Prognosis is poor Vital Signs: Date Time Temp Pulse Resp B/P (MAP) Pulse Ox O2 Delivery O2 Flow Rate FiO2 01/03/18 14:55 79 20 96 Nasal Cannula 3.0 01/03/18 14:01 70 21 129/46 (73) 98 Nasal Cannula 3.0 01/03/18 14:00 69 20 99 01/03/18 13:01 79 25 119/48 (71) 89 01/03/18 13:00 79 19 94 01/03/18 12:01 36.8 77 23 115/54 (74) 93 Nasal Cannula 3.0 01/03/18 12:00 94 Nasal Cannula 3.0 01/03/18 12:00 78 25 94 01/03/18 11:05 79 18 92 Nasal Cannula 3.0 01/03/18 11:00 68 22 99 01/03/18 10:02 83 19 117/57 (77) 93 Nasal Cannula 3.0 01/03/18 10:00 74 22 96 01/03/18 09:01 71 21 131/44 (73) 96 Nasal Cannula 5.0 01/03/18 09:00 71 18 96 01/03/18 08:15 96 Nasal Cannula 5.0 01/03/18 08:02 36.9 82 24 119/52 (74) 90 Nasal Cannula 3.0 01/03/18 08:00 80 29 89 3/12/18 08:00 Nasal Cannula 01/03/18 07:20 74 18 95 Nasal Cannula 4.0 01/03/18 07:01 73 23 126/57 (80) 94 01/03/18 07:00 75 22 91 01/03/18 05:01 66 14 140/58 (85) 98 Nasal Cannula 4.0 01/03/18 04:24 96 Nasal Cannula 4.0 01/03/18 04:01 36.7 63 18 114/54 (74) 97 Nasal Cannula 4.0 01/03/18 03:01 69 6 123/55 (77) 97 Nasal Cannula 4.0 01/03/18 02:01 66 19 118/50 (72) 97 Nasal Cannula 4.0 01/03/18 01:01 36.8 69 19 123/53 (76) 97 Nasal Cannula 4.0 01/03/18 00:51 96 Nasal Cannula 4.0 01/03/18 00:01 78 15 108/56 (73) 94 Nasal Cannula 4.0 01/02/18 23:01 71 20 111/48 (69) 97 Nasal Cannula 4.0 01/02/18 22:01 74 19 114/46 (68) 96 Nasal Cannula 4.0 01/02/18 21:01 74 19 129/54 (79) 97 Nasal Cannula 4.0 01/02/18 20:17 96 Nasal Cannula 4.0 01/02/18 20:10 79 18 96 Nasal Cannula 4.0 01/02/18 20:01 36.8 72 21 119/49 (72) 96 01/02/18 19:02 81 28 107/63 (78) 91 01/02/18 18:01 73 20 124/50 (74) 98 01/02/18 17:01 82 24 109/51 (70) 95 01/02/18 16:01 36.6 76 21 141/61 (87) 98 Nasal Cannula 6.0 01/02/18 16:00 97 Nasal Cannula 6.0 01/02/18 15:47 70 18 99 Nasal Cannula 6.0 Lab Results: Results Past 24 Hours Test 01/02/18 16:32 01/02/18 20:38 01/03/18 00:09 01/03/18 05:04 Range/Units Bedside Glucose 475 266 115 91 70-99 mg/dl Test 01/03/18 05:40 01/03/18 09:18 01/03/18 13:02 Range/Units White Blood Count 22.33 4.8-10.8 K/uL Red Blood Count 4.01 4.7-6.1 M/uL Hemoglobin 12.1 14.0-18.0 g/dL Hematocrit 36.5 42-52 % Mean Corpuscular Volume 91.0 80-100 fL Mean Corpuscular Hemoglobin 30.2 25-34 pg Mean Corpuscular Hemoglobin Concent 33.2 32-36 g/dl Platelet Count 150 130-400 K/uL Mean Platelet Volume 9.1 7.4-10.4 fL Neutrophils (%) (Auto) 91.0 % Lymphocytes (%) (Auto) 5.9 % Monocytes (%) (Auto) 2.0 % Eosinophils (%) (Auto) 0.0 % Basophils (%) (Auto) 0.0 % Neutrophils # (Auto) 20.32 1.4-6.5 K/uL Lymphocytes # (Auto) 1.32 1.2-3.4 K/uL Monocytes # (Auto) 0.44 0.11-0.59 K/uL Eosinophils # (Auto) 0.00 0-0.5 K/uL Basophils # (Auto) 0.01 0-0.2 K/uL RDW Standard Deviation 50.9 36.4-46.3 fL RDW Coefficient of Variation 15.3 11.5-14.5 % Immature Granulocyte % (Auto) 1.1 % Immature Granulocyte # (Auto) 0.24 0.00-0.02 K/uL Prothrombin Time 45.3 9.0-12.0 SECONDS Prothromb Time International Ratio 4.4 0.9-1.1 Sodium Level 140 136-145 mmol/L Potassium Level 4.3 3.5-5.1 mmol/L Chloride Level 104 98-107 mmol/L Carbon Dioxide Level 29 21-32 mmol/L Anion Gap 7.0 3-11 mmol/L Blood Urea Nitrogen 57 7-18 mg/dl Creatinine 2.30 0.60-1.40 mg/dl Est Creatinine Clear Calc Drug Dose 25.3 ml/min Estimated GFR () 28.7 Estimated GFR (Non- 24.8 BUN/Creatinine Ratio 24.6 10-20 Random Glucose 103 70-99 mg/dl Calcium Level 7.6 8.5-10.1 mg/dl Phosphorus Level 4.4 2.5-4.9 mg/dl Magnesium Level 2.3 1.8-2.4 mg/dl Total Bilirubin 0.7 0.2-1 mg/dl Direct Bilirubin 0.2 0-0.2 mg/dl Aspartate Amino Transf (AST/SGOT) 21 15-37 U/L Alanine Aminotransferase (ALT/SGPT) 30 12-78 U/L Alkaline Phosphatase 91 45-117 U/L Total Protein 5.3 6.4-8.2 gm/dl Albumin 2.1 3.4-5.0 gm/dl Troponin I < 0.015 0-0.045 ng/ml Pro-B-Type Natriuretic Peptide 887 0-1800 pg/ml
--- NOTE | 2018-01-03 16:03 | Pharmacy Progress Note ---
Glycemic: Assessment & Plan Date of Service Jan 03, 2018. Assessment & Plan The patient is currently receiving 130 units of insulin per day. BSGs ranging 91 - 475 mg/dl over the past 24hrs. This patient has been very labile and difficult to control. Even with steroids discontinued, elevated sugars continue. Given elevated lunch sugars, I lowered goal range and tightened correction factor as current bolus regimen does not appear to be sufficient. Given that the patient is ~11L positive, SQ absorption of insulin may be affected. If BSGs continue to be an issue into tomorrow, I would recommend re- initiating an insulin drip. Of note the patient's outpatient basal regimen is only 22 units daily. * Basal insulin: Lantus 35 units every in the morning and evening scale dependant on blood sugar. * Correctional Insulin: Novolog Correction per scale ACHS Goal Range changed: Low 110 mg/dL - High 150 mg/dL Correction Factor: 10 mg/dL/unit * Prandial insulin: Per carb ratio of 1 unit per 4 grams CHO consumed Pharmacy will continue to monitor patient daily and write orders per [facility] inpatient glycemic control protocol. Thanks. * Please note that the plan above was derived based on current level of insulin resistance and hospital stress. These recommendations are appropriate for inpatient admission only. Plan of care upon discharge will need to be reassessed to avoid potential outpatient hypo/hyperglycemia.
--- NOTE | 2018-01-03 17:41 | Critical Care Progress Note ---
Critical Care Progress Note Date of Service Jan 03, 2018. Attending Dr. Adler Subjective Patient reports that he feels better today, believes he is requiring less oxygen. Objective General: Alert. nontoxic. Elderly male in no acute distress, conversant Skin: Warm, dry, ecchymoses bilateral upper extremities Head: Atraumatic Ears, nose, mouth and throat: airway patent Cardiovascular: Normal peripheral perfusion Respiratory: no respiratory distress, scattered rhonchi, no wheezes Gastrointestinal: Non distended Musculoskeletal: No deformity Psych: Alert and oriented 3 conversant Assessment & Plan Reason Critically Ill: Acute hypoxic respiratory failure status post influenza pneumonia with subsequent MSSA pneumonia PLAN: Neuro: Resp: Acute hypoxic respiratory failure * Finish course of Zosyn for 10 days of total treatment * Finish 10 days of Zyvox * Discontinued azithromycin secondary to prolonged QTC * Sent 1 3 beta D glucan * Sent mycoplasma pneumonia and legionella antibodies * Continue voriconazole at this time * Oxygen requirements increased from 2 L to 5 L continue to monitor CV: Prolonged QTC * Noted on EKG from 2012 * Awaiting repeat echo Fluids/Renal: Renal insufficiency * Tolerating regular diet patient fluids ad maynor. ID: Continue current treatment course GI/Nutrition: ADA diet Heme: Supratherapeutic INR * On Coumadin secondary to atrial flutter history * Voriconazole will increase INR * Daily INR DVT * Right popliteal vein Endocrine: ICU insulin protocol * Blood sugars currently within acceptable limits * Patient critically ill due to continued oxygen requirement that actually has worsened in the last 24 hours. Patient remains full resuscitation. Discussed with the patient the risks and benefits of bronchoscopy as well as CT scan with contrast. Currently being treated empirically feel risks outweigh benefits of both procedures I have personally spent 45 minutes of critical care time in the direct management of this patient. This is a life/limb threatening event. This includes time spent evaluating patient, direct bedside care, chart review, placing orders, interpretation of diagnostic studies, discussion with consultants, patient, and/or family members regarding treatment decisions, as well as other required patient management activities. This time is exclusive of all separately billable procedures, and teaching time and separate from and in addition to any other critical care service time. Consults & Procedures Consultants: Cardiology - Dr Piña Pulmonary - Dr Funk Data Medications: Current Inpatient Medications Medications (Trade) Dose Ordered Sig/Krystal Route Start Time Stop Time Status Last Admin Dose Admin Miscellaneous Information (Consult Glycemic Management Pharmacy) 1 ea UD PRN N/A 12/15/17 18:01 01/14/18 18:00 Acetaminophen (Tylenol Tab) 650 mg Q4H PRN PO 12/15/17 17:15 01/14/18 17:14 12/18/17 05:52 650 MG Al Hydrox/Mg Hydrox/Simethicone (Maalox Max Susp) 15 ml Q4H PRN PO 12/15/17 17:15 01/14/18 17:14 Magnesium Hydroxide (Milk Of Magnesia Susp) 30 ml Q12H PRN PO 12/15/17 17:15 01/14/18 17:14 Ondansetron HCl (Zofran Inj) 4 mg Q6H PRN IV 12/15/17 17:15 01/14/18 17:14 Polyethylene (Miralax Powder Packet) 17 gm DAILY PRN PO 12/15/17 17:15 01/14/18 17:14 Cholecalciferol (Vitamin D Tab) 2,000 inter.unit DAILY PO 12/16/17 09:00 01/15/18 08:59 01/03/18 08:14 2,000 INTER.UNIT Pantoprazole Sodium (Protonix Tab) 40 mg QAM PO 12/16/17 09:00 01/15/18 08:59 01/03/18 08:15 40 MG Ipratropium [place] (Atrovent 0.02% 0.5MG/2.5ML Neb) 0.5 mg Q2H PRN INH 12/15/17 21:15 01/14/18 21:14 12/31/17 23:10 0.5 MG Levalbuterol (Xopenex 1.25MG/ 0.5ML Neb) 1.25 mg Q2H PRN INH 12/15/17 21:15 01/14/18 21:14 12/31/17 23:10 1.25 MG Magnesium Chloride (Slow-Mag Tab) 128 mg DAILY PO 12/17/17 10:45 01/16/18 10:44 01/03/18 08:16 128 MG Warfarin Sodium (Coumadin Tab) 3 mg DAILY@1600 PO 12/21/17 16:00 01/19/18 15:59 Future Hold 12/29/17 15:32 3 MG Guaifenesin (Mucinex Contr Rel Tab) 600 mg Q12 PO 12/21/17 21:00 01/20/18 20:59 01/03/18 08:14 600 MG Ipratropium [place] (Atrovent 0.02% 0.5MG/2.5ML Neb) 0.5 mg Q4RWA INH 12/22/17 12:00 01/15/18 02:59 01/03/18 14:55 0.5 MG Levalbuterol (Xopenex 1.25MG/ 0.5ML Neb) 1.25 mg Q4RWA INH 12/22/17 12:00 01/15/18 02:59 01/03/18 14:55 1.25 MG Miconazole Nitrate (Desenex Powder) 1 appln PRN PRN EXT 12/26/17 03:30 01/25/18 03:29 Miscellaneous Information (Consult) 1 ea UD PRN N/A 12/26/17 16:00 01/25/18 15:59 Tamsulosin HCl (Flomax Cap) 0.4 mg BID PO 12/26/17 21:00 01/15/18 08:59 01/03/18 08:16 0.4 MG Finasteride (Proscar Tab) 5 mg QAM PO 12/27/17 09:00 01/26/18 08:59 01/03/18 08:17 5 MG Glucose (Glucose 40% Gel) 15-30 GRAMS 15 GRAMS... UD PRN PO 12/27/17 16:45 01/26/18 16:44 Glucose (Glucose Chew Tab) 4-8 Tablets 4 Tabl... UD PRN PO 12/27/17 16:45 01/26/18 16:44 12/27/17 16:46 4 TABS Dextrose (Dextrose 50% 50ML Syringe) 25-50ML OF 50% DW IV FOR... UD PRN IV 12/27/17 16:45 01/26/18 16:44 Glucagon (Glucagon Inj) 1 mg UD PRN SQ 12/27/17 16:45 01/26/18 16:44 Piperacillin Sod/ Tazobactam Sod 3.375 gm/Dextrose 115 ml @ 28.75 mls/ hr Q8H IV 12/29/17 08:00 01/04/18 23:59 01/03/18 11:49 28.75 MLS/HR Torsemide (Demadex Tab) 20 mg QAM PO 12/30/17 09:00 01/29/18 08:59 01/03/18 08:17 20 MG Potassium Chloride (Klor-Con M10) 10 meq DAILY PO 12/30/17 09:00 01/29/18 08:59 01/03/18 08:16 10 MEQ Insulin Glargine (Lantus Solostar Pen) 35 units QAM SC 01/01/18 09:00 01/31/18 08:59 01/03/18 08:34 35 UNITS Linezolid (Zyvox Tab) 600 mg BID PO 01/01/18 21:00 01/11/18 20:59 01/03/18 08:14 600 MG Voriconazole (Vfend Tab) 300 mg BID PO 01/01/18 21:00 01/11/18 20:59 01/03/18 08:15 300 MG Insulin Glargine (Lantus Solostar Pen) see protocol HS SC 01/02/18 21:00 02/01/18 20:59 01/02/18 20:54 20 UNITS Insulin Aspart (novoLOG ASPART) SLIDING SCALE ACHS SC 01/02/18 16:00 02/01/18 15:59 01/03/18 17:03 1 UNITS Insulin Aspart (novoLOG ASPART) SLIDING SCALE 0000,0400 SC 01/03/18 00:00 02/02/18 00:00 Doxycycline Hyclate (Vibramycin Cap) 100 mg BID PO 01/04/18 09:00 01/11/18 08:59 I & O: 24-Hour Column 01/04/18 08:00 Intake Total 865 ml Output Total 375 ml Balance 490 ml Vital Signs: Date Time Temp Pulse Resp B/P (MAP) Pulse Ox O2 Delivery O2 Flow Rate FiO2 01/03/18 16:01 36.4 79 24 111/48 (69) 94 Nasal Cannula 3.0 01/03/18 16:00 Nasal Cannula 3.0 01/03/18 15:01 84 19 113/46 (68) 91 Nasal Cannula 3.0 01/03/18 14:55 79 20 96 Nasal Cannula 3.0 01/03/18 14:01 70 21 129/46 (73) 98 Nasal Cannula 3.0 01/03/18 14:00 69 20 99 01/03/18 13:01 79 25 119/48 (71) 89 01/03/18 13:00 79 19 94 01/03/18 12:01 36.8 77 23 115/54 (74) 93 Nasal Cannula 3.0 01/03/18 12:00 94 Nasal Cannula 3.0 01/03/18 12:00 78 25 94 01/03/18 11:05 79 18 92 Nasal Cannula 3.0 01/03/18 11:00 68 22 99 01/03/18 10:02 83 19 117/57 (77) 93 Nasal Cannula 3.0 01/03/18 10:00 74 22 96 01/03/18 09:01 71 21 131/44 (73) 96 Nasal Cannula 5.0 01/03/18 09:00 71 18 96 01/03/18 08:15 96 Nasal Cannula 5.0 01/03/18 08:02 36.9 82 24 119/52 (74) 90 Nasal Cannula 3.0 01/03/18 08:00 80 29 89 01/03/18 08:00 Nasal Cannula 01/03/18 07:20 74 18 95 Nasal Cannula 4.0 01/03/18 07:01 73 23 126/57 (80) 94 01/03/18 07:00 75 22 91 01/03/18 05:01 66 14 140/58 (85) 98 Nasal Cannula 4.0 01/03/18 04:24 96 Nasal Cannula 4.0 01/03/18 04:01 36.7 63 18 114/54 (74) 97 Nasal Cannula 4.0 01/03/18 03:01 69 6 123/55 (77) 97 Nasal Cannula 4.0 01/03/18 02:01 66 19 118/50 (72) 97 Nasal Cannula 4.0 01/03/18 01:01 36.8 69 19 123/53 (76) 97 Nasal Cannula 4.0 01/03/18 00:51 96 Nasal Cannula 4.0 01/03/18 00:01 78 15 108/56 (73) 94 Nasal Cannula 4.0 01/02/18 23:01 71 20 111/48 (69) 97 Nasal Cannula 4.0 01/02/18 22:01 74 19 114/46 (68) 96 Nasal Cannula 4.0 01/02/18 21:01 74 19 129/54 (79) 97 Nasal Cannula 4.0 01/02/18 20:17 96 Nasal Cannula 4.0 01/02/18 20:10 79 18 96 Nasal Cannula 4.0 01/02/18 20:01 36.8 72 21 119/49 (72) 96 01/02/18 19:02 81 28 107/63 (78) 91 01/02/18 18:01 73 20 124/50 (74) 98 Laboratory Results: Last 24 Hours Test 01/02/18 20:38 01/03/18 00:09 01/03/18 05:04 01/03/18 05:40 Bedside Glucose 266 mg/dl 115 mg/dl 91 mg/dl White Blood Count 22.33 K/uL Red Blood Count 4.01 M/uL Hemoglobin 12.1 g/dL Hematocrit 36.5 % Mean Corpuscular Volume 91.0 fL Mean Corpuscular Hemoglobin 30.2 pg Mean Corpuscular Hemoglobin Concent 33.2 g/dl Platelet Count 150 K/uL Mean Platelet Volume 9.1 fL Neutrophils (%) (Auto) 91.0 % Lymphocytes (%) (Auto) 5.9 % Monocytes (%) (Auto) 2.0 % Eosinophils (%) (Auto) 0.0 % Basophils (%) (Auto) 0.0 % Neutrophils # (Auto) 20.32 K/uL Lymphocytes # (Auto) 1.32 K/uL Monocytes # (Auto) 0.44 K/uL Eosinophils # (Auto) 0.00 K/uL Basophils # (Auto) 0.01 K/uL RDW Standard Deviation 50.9 fL RDW Coefficient of Variation 15.3 % Immature Granulocyte % (Auto) 1.1 % Immature Granulocyte # (Auto) 0.24 K/uL Prothrombin Time 45.3 SECONDS Prothromb Time International Ratio 4.4 Sodium Level 140 mmol/L Potassium Level 4.3 mmol/L Chloride Level 104 mmol/L Carbon Dioxide Level 29 mmol/L Anion Gap 7.0 mmol/L Blood Urea Nitrogen 57 mg/dl Creatinine 2.30 mg/dl Est Creatinine Clear Calc Drug Dose 25.3 ml/min Estimated GFR () 28.7 Estimated GFR (Non- 24.8 BUN/Creatinine Ratio 24.6 Random Glucose 103 mg/dl Calcium Level 7.6 mg/dl Phosphorus Level 4.4 mg/dl Magnesium Level 2.3 mg/dl Total Bilirubin 0.7 mg/dl Direct Bilirubin 0.2 mg/dl Aspartate Amino Transf (AST/SGOT) 21 U/L Alanine Aminotransferase (ALT/SGPT) 30 U/L Alkaline Phosphatase 91 U/L Total Protein 5.3 gm/dl Albumin 2.1 gm/dl Test 01/03/18 09:18 01/03/18 13:02 01/03/18 16:20 Troponin I < 0.015 ng/ml Pro-B-Type Natriuretic Peptide 887 pg/ml Bedside Glucose 81 mg/dl
--- NOTE | 2018-01-03 21:45 | ECHOCARDIOGRAM REPORT ---
*NOTICE TO RECEIVING [employer] This information is strictly Confidential and protected under [place] law. [place] law prohibits you from making any further disclosure of this information unless further disclosure is expressly permitted by the written consent of the person to whom it pertains or is authorized by law. A general authorization for the release of medical or other information is not sufficient for this purpose. Hospital accepts no responsibility if the information is made available to any other person, INCLUDING THE PATIENT. Interpretation Summary * Name: JASMIN SUÁREZ Study Date: 01/03/2018 02:15 PM BP: 115/54 mmHg * Patient Location: .MSICU\S\E110\S\1 HR: 102 * : 1930 (M/d/yyyy) Gender: Male Height: 72 in * Age: 87 yrs Ethnicity: [place] Weight: 184 lb * Ordering Physician: Vazquez Adler * Referring Physician: Self, Referred * Performed By: Malina Feng RCS * * Reason For Study: HYPOXIC RESP FAILURE / + DVT / R VENTRICULAR FUNCTION * BSA: 2.1 m2 * -- Conclusions -- * A focused echocardiogram was performed per provider request for reassessment of biventricular systolic function given history of DVT and hypoxia. * The left ventricle is normal in size. * There is mild concentric left ventricular hypertrophy. * No regional wall motion abnormalities noted. * The LV ejection Fraction = 60-65%. * The right ventricle is normal in size and function. * There is mild tricuspid regurgitation. * Doppler findings do not suggest pulmonary hypertension. * Inferior vena cava was not well-visualized and therefore the right atrial pressure cannot be estimated Procedure Details * Limited views were obtained. Left Ventricle * The left ventricle is normal in size. * There is mild concentric left ventricular hypertrophy. * Left ventricular systolic function is normal. * Ejection Fraction = 60-65%. * The left ventricular wall motion is normal. * No regional wall motion abnormalities noted. Right Ventricle * The right ventricle is normal in size and function. Tricuspid Valve * The tricuspid valve is not well visualized, but is grossly normal. * Tricuspid stenosis is absent. * There is mild tricuspid regurgitation. * Doppler findings do not suggest pulmonary hypertension. Great Vessels * Inferior vena cava was not well-visualized and therefore the right atrial pressure cannot be estimated per MMode 2D Measurements and Calculations IVSd 1.2 cm IVSs 1.6 cm LVIDd 3.6 cm LVIDs 2.2 cm LVPWd 1.3 cm LVPWs 1.3 cm IVS/LVPW 0.90 FS 38.8 % EDV(Teich) 56.0 ml ESV(Teich) 16.8 ml EF(Teich) 70.1 % EDV(cubed) 48.3 ml ESV(cubed) 11.1 ml EF(cubed) 77.1 % % IVS thick 39.1 % % LVPW thick 3.6 % LV mass(C)d 149.7 grams LV mass(C)dI 72.8 grams/m\S\2 LV mass(C)s 107.9 grams LV mass(C)sI 52.5 grams/m\S\2 SV(Teich) 39.2 ml SI(Teich) 19.1 ml/m\S\2 SV(cubed) 37.2 ml SI(cubed) 18.1 ml/m\S\2 LVOT diam 2.0 cm LVOT area 3.1 cm\S\2 Doppler Measurements and Calculations TR max ana 273.5 cm/sec
[2018-01-04] VITALS (31 sets, daily range): BP systolic 92–152; BP diastolic 43–67; PULSE 67–90; TEMP 36.6–37.1; O2SAT 88–99
[2018-01-04] MEDS: INSULIN ASPART 100 UNITS/ML 3 ML PEN SC SCH ×6 (04:20→20:42)
[2018-01-04] MEDS: PIPERACILL/TAZOBAC IV 3.375 GM in DEXTROSE 5% 100ML 100 ML IV SCH ×3 (05:17→20:39)
[2018-01-04 05:50] LABS: CALCIUM 7.4 mg/dl (8.5-10.1); CREATININE 2.33 mg/dl (0.60-1.40); INR 3.9 (0.9-1.1); PHOSPHORUS 4.2 mg/dl (2.5-4.9); POTASSIUM 3.7 mmol/L (3.5-5.1)
[2018-01-04 06:18] LABS: HEMATOCRIT 36.1 % (42-52); HEMOGLOBIN 11.5 g/dL (14.0-18.0); MEAN CELL VOLUME 92.6 fL (80-100); MEAN CORPUSCULAR HEMOGLOBIN 29.5 pg (25-34); MEAN CORPUSCULAR HGB CONC 31.9 g/dl (32-36); PLATELET COUNT 113 K/uL (130-400); RED CELL DISTRIBUTION WIDTH CV 15.4 % (11.5-14.5); RED CELL DISTRIBUTION WIDTH SD 51.1 fL (36.4-46.3); WHITE BLOOD COUNT 10.76 K/uL (4.8-10.8)
[2018-01-04] MEDS: LEVALBUTEROL 1.25MG/0.5ML NEB INH SCH ×4 (07:24→19:05)
[2018-01-04] MEDS: IPRATROPIUM BROMIDE NEB SOLN 0.02% 2.5 ML VIAL INH SCH ×4 (07:24→19:05)
[2018-01-04] MEDS: TAMSULOSIN HCL 0.4 MG CAP PO SCH ×2 (08:15→20:39)
[2018-01-04] MEDS: DOXYCYCLINE HYCLATE 100 MG CAP PO SCH ×2 (08:16→20:39)
[2018-01-04] MEDS: POTASSIUM CHLORIDE 10 MEQ TABCR PO SCH (08:16)
[2018-01-04] MEDS: LINEZOLID 600 MG TAB PO SCH ×2 (08:16→20:39)
[2018-01-04] MEDS: MAGNESIUM CHLORIDE 64MG DELAYED REL TAB PO SCH (08:17)
[2018-01-04] MEDS: VORICONAZOLE 200 MG TAB PO SCH ×2 (08:17→20:39)
[2018-01-04] MEDS: CHOLECALCIFEROL 1000 INTER.UNIT TAB PO SCH (08:18)
[2018-01-04] MEDS: GUAIFENESIN 600 MG TABCR PO SCH ×2 (08:18→20:39)
[2018-01-04] MEDS: PANTOprazole SOD 40 MG TAB PO SCH (08:18)
[2018-01-04] MEDS: TORSEMIDE 20 MG TAB PO SCH (08:18)
[2018-01-04] MEDS: FINASTERIDE 5 MG TAB PO SCH (08:19)
[2018-01-04] MEDS: INSULIN GLARGINE SOLOSTAR 100 UNITS/ML 3 ML PEN SC SCH (08:21)
--- NOTE | 2018-01-04 12:38 | Pharmacy Progress Note ---
Glycemic: Assessment & Plan Date of Service Jan 04, 2018. Assessment & Plan The patient is currently receiving 63 units of insulin per day. BSGs ranging 81 - 146 mg/dl over the past 24hrs. I anticipate the effect of steroids is now over given better control of blood sugars. For this reason, I lowered the dose of basal lantus closer to the patient's home dose, sightly increased goal range , and loosened the CF. Given these changes I will leave 0000,0400 BSG checks for one more night. The lunch blood sugars remain in range with this regimen. * Basal insulin: Lantus 25 units every am * Correctional Insulin: Novolog Correction per scale ACHS Goal Range: Low 120 mg/dL - High 160 mg/dL Correction Factor: 12 mg/dL/unit * Prandial insulin: Per carb ratio of 1 unit per 4 grams CHO consumed Pharmacy will continue to monitor patient daily and write orders per [facility] inpatient glycemic control protocol. Thanks. * Please note that the plan above was derived based on current level of insulin resistance and hospital stress. These recommendations are appropriate for inpatient admission only. Plan of care upon discharge will need to be reassessed to avoid potential outpatient hypo/hyperglycemia.
--- NOTE | 2018-01-04 14:30 | Critical Care Progress Note ---
Critical Care Progress Note Date of Service Jan 04, 2018. ICU Day ICU Day Number: [address] Adler Subjective This AM pt denied any sob or discomfort. Per nursing he had a vagal episode during BM around 0415 but returned to baseline when returned to bed. Objective General: Alert and communicative HEENT: moist MM, on NC CVS: RRR no murmurs appreciated, normal S1, S2 Resp: normal WOB, diminished and coarse breath sounds with occasional rhonchi. No wheezing or crackles appreciated GI: +BS, abdomen soft, NT, ND Skin: warm and dry Extremities: well perfused, no pedal edema Neuro: Alert and oriented x 3 Assessment & Plan Admitted to the ICU for acute hypoxic respiratory failure secondary to influenza pneumonia with subsequent MSSA PNA vs. fungal infection. However risks outweigh benefits of CT scan with contrast or bronchoscopy to further delineate etiology as discussed with patient and thus treated empirically. NEURO: Alert and oriented CV: Prolonged QTC. Noted on EKG from 2012. -Repeat ECHO: mild concentric LVH; EF 55-60%; mild tricuspid regurg; RV normal size and function; no evidence of pulm HTN -Torsemide 20mg PO QAM PULM: Improving acute hypoxic respiratory failure now on 3L NC from 5L yesterday -Continue Zosyn day 10 of 10 -Continue Linezolid day 4 of 7 -Continue Doxycycline day 4 of 10 -Dced Azithromycin due to QTc prolongation -Continue Voriconazole day 3 of 10 -1,3 beta D-glucan - pending -Mycoplasma pneumonia and legionella antibodies - pending RENAL/: Hx of CKD stage 3. Cr stable at 2.3. Baseline Cr ~ 1.6 -Finasteride 5mg PO QAM -Tamsulosin HCL 0.4mg PO BID ID: continue pulmonary infectious course noted above ENDOCRINE: Hx of DM2 -On Lantus 25 units QAM -ISS Novolog: goal 120-160; CF: 12; CHO ratio 1 unit : 4g CHO HEME: Supra-therapeutic INR of 3.9 (downtrending) -Holding home Coumadin (hx of atrial flutter) -Note: Voriconazole also increases INR -Monitor INR ELECTROLYTES: within normal limits; calcium 7.4 (corrects to 9.1 given low albumin of 2.1) GI/NUTRITION: -GI prophylaxis: Protonix 40mg QAM -ADA diet IV ACCESS: Peripheral access only DVT: Has R popliteal vein and peroneal vein DVT of indeterminate age based on venous Doppler -No anticoagulation as supra-therapeutic INR of 3.9 -Holding home Coumadin CCT: 45 minutes independent of any procedures Thank you for including us in the care of this patient. Please refer to Dr. Adler's addendum for further recommendations Resident Physician Supervision Note: Dr. Ang was resident physician during care of patient. I separately evaluated patient and did history and exam. I discussed the case with the resident and generally agree with the findings and plan. Recheck INR tomorrow, will require systemic anticoagulation in the near future. Empiric treatment for possible infectious organisms given lack of improvement of chest x-ray. This was started prior to my arrival on service. I am finishing a 10 day course of Zosyn, continuing with 10 days of doxycycline for atypical coverage, the mycoplasma and Legionella antigens are still pending if those returned negative I would discontinue the doxycycline. I am waiting for the 1 3 beta D glucan as well as the aspergillus antibody testing, in the meantime I will continue the voriconazole orally. Patient's hypoxia is improved compared to yesterday. Patient is stable for downgrade out of the ICU. Documented By: Vazquez Adler DO Consults & Procedures Consultants: Cardiology - Dr Piña Pulmonary - Dr Funk Data Medications: Current Inpatient Medications Medications (Trade) Dose Ordered Sig/Krystal Route Start Time Stop Time Status Last Admin Dose Admin Miscellaneous Information (Consult Glycemic Management Pharmacy) 1 ea UD PRN N/A 12/15/17 18:01 01/14/18 18:00 Acetaminophen (Tylenol Tab) 650 mg Q4H PRN PO 12/15/17 17:15 01/14/18 17:14 12/18/17 05:52 650 MG Al Hydrox/Mg Hydrox/Simethicone (Maalox Max Susp) 15 ml Q4H PRN PO 12/15/17 17:15 01/14/18 17:14 Magnesium Hydroxide (Milk Of Magnesia Susp) 30 ml Q12H PRN PO 12/15/17 17:15 01/14/18 17:14 Ondansetron HCl (Zofran Inj) 4 mg Q6H PRN IV 12/15/17 17:15 01/14/18 17:14 Polyethylene (Miralax Powder Packet) 17 gm DAILY PRN PO 12/15/17 17:15 01/14/18 17:14 Cholecalciferol (Vitamin D Tab) 2,000 inter.unit DAILY PO 12/16/17 09:00 01/15/18 08:59 01/04/18 08:18 2,000 INTER.UNIT Pantoprazole Sodium (Protonix Tab) 40 mg QAM PO 12/16/17 09:00 01/15/18 08:59 01/04/18 08:18 40 MG Ipratropium [place] (Atrovent 0.02% 0.5MG/2.5ML Neb) 0.5 mg Q2H PRN INH 12/15/17 21:15 01/14/18 21:14 12/31/17 23:10 0.5 MG Levalbuterol (Xopenex 1.25MG/ 0.5ML Neb) 1.25 mg Q2H PRN INH 12/15/17 21:15 01/14/18 21:14 12/31/17 23:10 1.25 MG Magnesium Chloride (Slow-Mag Tab) 128 mg DAILY PO 12/17/17 10:45 01/16/18 10:44 01/04/18 08:17 128 MG Warfarin Sodium (Coumadin Tab) 3 mg DAILY@1600 PO 12/21/17 16:00 01/19/18 15:59 Future Hold 12/29/17 15:32 3 MG Guaifenesin (Mucinex Contr Rel Tab) 600 mg Q12 PO 12/21/17 21:00 01/20/18 20:59 01/04/18 08:18 600 MG Ipratropium [place] (Atrovent 0.02% 0.5MG/2.5ML Neb) 0.5 mg Q4RWA INH 12/22/17 12:00 01/15/18 02:59 01/04/18 11:01 0.5 MG Levalbuterol (Xopenex 1.25MG/ 0.5ML Neb) 1.25 mg Q4RWA INH 12/22/17 12:00 01/15/18 02:59 01/04/18 11:01 1.25 MG Miconazole Nitrate (Desenex Powder) 1 appln PRN PRN EXT 12/26/17 03:30 01/25/18 03:29 Miscellaneous Information (Consult) 1 ea UD PRN N/A 12/26/17 16:00 01/25/18 15:59 Tamsulosin HCl (Flomax Cap) 0.4 mg BID PO 12/26/17 21:00 01/15/18 08:59 01/04/18 08:15 0.4 MG Finasteride (Proscar Tab) 5 mg QAM PO 12/27/17 09:00 01/26/18 08:59 01/04/18 08:19 5 MG Glucose (Glucose 40% Gel) 15-30 GRAMS 15 GRAMS... UD PRN PO 12/27/17 16:45 01/26/18 16:44 Glucose (Glucose Chew Tab) 4-8 Tablets 4 Tabl... UD PRN PO 12/27/17 16:45 01/26/18 16:44 12/27/17 16:46 4 TABS Dextrose (Dextrose 50% 50ML Syringe) 25-50ML OF 50% DW IV FOR... UD PRN IV 12/27/17 16:45 01/26/18 16:44 Glucagon (Glucagon Inj) 1 mg UD PRN SQ 12/27/17 16:45 01/26/18 16:44 Piperacillin Sod/ Tazobactam Sod 3.375 gm/Dextrose 115 ml @ 28.75 mls/ hr Q8H IV 12/29/17 08:00 01/04/18 23:59 01/04/18 13:26 28.75 MLS/HR Torsemide (Demadex Tab) 20 mg QAM PO 12/30/17 09:00 01/29/18 08:59 01/04/18 08:18 20 MG Potassium Chloride (Klor-Con M10) 10 meq DAILY PO 12/30/17 09:00 01/29/18 08:59 01/04/18 08:16 10 MEQ Linezolid (Zyvox Tab) 600 mg BID PO 01/01/18 21:00 01/08/18 20:59 01/04/18 08:16 600 MG Voriconazole (Vfend Tab) 300 mg BID PO 01/01/18 21:00 01/11/18 20:59 01/04/18 08:17 300 MG Insulin Aspart (novoLOG ASPART) SLIDING SCALE ACHS SC 01/02/18 16:00 02/01/18 15:59 01/04/18 11:50 11 UNITS Insulin Aspart (novoLOG ASPART) SLIDING SCALE 0000,0400 SC 01/03/18 00:00 02/02/18 00:00 Doxycycline Hyclate (Vibramycin Cap) 100 mg BID PO 01/04/18 09:00 01/11/18 08:59 01/04/18 08:16 100 MG Insulin Glargine (Lantus Solostar Pen) 25 units QAM SC 01/04/18 09:00 02/03/18 08:59 01/04/18 08:21 25 UNITS I & O: 24-Hour Column 01/05/18 08:00 Intake Total 835 ml Output Total 1150 ml Balance -315 ml Vital Signs: Date Time Temp Pulse Resp B/P (MAP) Pulse Ox O2 Delivery O2 Flow Rate FiO2 01/04/18 13:54 37.0 79 22 94/46 (62) 95 Nasal Cannula 3.0 01/04/18 13:35 82 22 96/46 (63) 01/04/18 13:34 85 29 96/46 (63) 01/04/18 13:01 79 4 96/47 (63) 97 01/04/18 13:00 77 14 96 01/04/18 12:01 78 22 113/52 (72) 95 01/04/18 12:00 78 21 96 01/04/18 11:30 Nasal Cannula 3.0 01/04/18 11:30 37.0 88 22 107/46 (66) 95 Nasal Cannula 3.0 01/04/18 11:02 82 20 92 Nasal Cannula 3.0 01/04/18 11:02 77 15 131/ (43) 98 01/04/18 11:00 82 21 95 01/04/18 10:01 73 18 107/46 (66) 99 01/04/18 10:00 73 18 99 01/04/18 09:41 74 19 115/50 (71) 98 01/04/18 09:38 78 26 92/43 (59) 97 01/04/18 09:30 36.6 74 22 98/44 (62) 97 Nasal Cannula 3.0 01/04/18 09:00 73 20 96 01/04/18 08:00 75 19 95 01/04/18 07:30 36.6 78 22 133/62 (85) 93 Nasal Cannula 3.0 01/04/18 07:30 Nasal Cannula 3.0 01/04/18 07:25 90 20 94 Nasal Cannula 3.0 01/04/18 07:01 69 24 133/61 (85) 98 01/04/18 07:00 70 25 98 01/04/18 05:02 67 28 100/54 (69) 88 Nasal Cannula 3.0 01/04/18 04:21 71 20 152/67 (95) 91 Nasal Cannula 3.0 01/04/18 04:01 37.0 68 13 113/55 (74) 96 Nasal Cannula 3.0 01/04/18 04:00 Nasal Cannula 3.0 01/04/18 02:01 68 21 115/53 (73) 97 Nasal Cannula 3.0 01/04/18 00:01 36.6 80 17 99/57 (71) 91 Nasal Cannula 3.0 01/04/18 00:00 Nasal Cannula 3.0 01/03/18 22:01 81 26 103/58 (73) 93 Nasal Cannula 3.0 01/03/18 21:01 37.0 77 23 135/59 (84) 96 Nasal Cannula 3.0 01/03/18 20:01 79 20 92 Nasal Cannula 3.0 01/03/18 20:01 80 22 126/53 (77) 89 Nasal Cannula 3.0 01/03/18 20:00 Nasal Cannula 3.0 01/03/18 19:01 74 20 127/64 (85) 96 Nasal Cannula 3.0 01/03/18 18:02 80 21 124/50 (74) 88 Nasal Cannula 3.0 01/03/18 17:01 83 22 116/58 (77) 94 Nasal Cannula 3.0 01/03/18 16:01 36.4 79 24 111/48 (69) 94 Nasal Cannula 3.0 01/03/18 16:00 Nasal Cannula 3.0 01/03/18 15:01 84 19 113/46 (68) 91 Nasal Cannula 3.0 01/03/18 14:55 79 20 96 Nasal Cannula 3.0 Laboratory Results: Last 24 Hours Test 01/03/18 16:20 01/03/18 18:30 01/03/18 20:35 01/04/18 00:07 Bedside Glucose 81 mg/dl 86 mg/dl 132 mg/dl Test 01/04/18 04:13 01/04/18 04:59 01/04/18 05:48 01/04/18 06:20 Bedside Glucose 108 mg/dl 111 mg/dl Prothrombin Time 39.4 SECONDS Prothromb Time International Ratio 3.9 Sodium Level 141 mmol/L Potassium Level 3.7 mmol/L Chloride Level 104 mmol/L Carbon Dioxide Level 29 mmol/L Anion Gap 8.0 mmol/L Blood Urea Nitrogen 50 mg/dl Creatinine 2.33 mg/dl Est Creatinine Clear Calc Drug Dose 25.0 ml/min Estimated GFR () 28.3 Estimated GFR (Non- 24.4 BUN/Creatinine Ratio 21.4 Random Glucose 122 mg/dl Calcium Level 7.4 mg/dl Phosphorus Level 4.2 mg/dl Magnesium Level 2.2 mg/dl White Blood Count 10.76 K/uL Red Blood Count 3.90 M/uL Hemoglobin 11.5 g/dL Hematocrit 36.1 % Mean Corpuscular Volume 92.6 fL Mean Corpuscular Hemoglobin 29.5 pg Mean Corpuscular Hemoglobin Concent 31.9 g/dl RDW Standard Deviation 51.1 fL RDW Coefficient of Variation 15.4 % Platelet Count 113 K/uL Mean Platelet Volume 9.0 fL Test 01/04/18 10:48 Bedside Glucose 146 mg/dl
--- NOTE | 2018-01-04 18:21 | Progress Note ---
Internal Med Progress Note Date of Service: Jan 04, 2018. Provider Documentation: SUBJECTIVE: patient still has sob but says slightly better than yesterday afebrile has cough denies chest pain has some nausea but eating ok no abdominal pain weak OBJECTIVE: Vital Signs-as noted below Exam: General-alert and oriented. ENT-Normal hearing Neck-no neck masses Lungs-cta b/l no wheezing mild bibasilar crackles present Heart-S1 and S2 heard regular rate and rhythm no murmurs Abdomen-Soft bowel sounds present non tender no distension Extremities-no edema no erythema Neuro-alert and awake moves extremities Lab data as noted below. ASSESSMENT & PLAN: ACUTE HYPOXEMIC RESPIRATORY FAILURE-Progressing towards ARDS Presented with SOB /cough for 1 week and noted to have spo2 86 in RA , improved with supplemental 02 Secondary to pneumonia FLU was positive but was not treated as he had symptoms > 1 week later developed pneumonia sputum cx growing MSSa was transferred to ICU as repeat ct chest showed worsening infiltration amiodarone was stopped for possible amiodarone toxicity received lasix for fluid overload Appreciate pulmonary and critical care inputs received broad spectrum abx currently on iv Zosyn and Zyvox to complete 10 day course on doxycycline and to stp it if negative for atypical on voriconazole - awaiting fungal studies no plan fro bronchoscopy on ct scan as risks out weights benefits as per critical care continue to monitor BILATERAL MULTILOBAR PNEUMONIA pneumonia in setting FLU Started on IV Zosyn ( for pseudomonal coverage in setting of Type 2 DM / hyperglycemia ) Blood CULTURE-NEGATIVE and sputum culture :Staph Aureus.MSSA Received Vancomycin ,Changed to Ceftriaxone and Doxycycline Received Solumedrol and Prednisone-discontinued on 01/02/18 Pulmonary consulted-appreciate input curretly on abx as above 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 Amiodarone stopped Cardiology is on board HYPERGLYCEMIA WITH TYPE 2 DM On Lantus 22 U HS Started on IV insulin protocol Pharmacy consulted for glycemic management Hb A1c 9.8 on 09/2017 Hb A1c 10.4 now close monitor [place]SA[place] ON CKD STAGE 3 due to above received fluids currently on torsemide continue to monitor HYPONATREMIA : Due to hyperglycemia received fluids follow PRP -normalized HX OF A FLUTTER : Rate and rhythm controlled amiodarone stopped INR 3.9 Coumadin on hold FULL CODE DISPOSITION ; PT/OT prior to discharge Medicine follow up with Dr Ward Prognosis is poor/guarded to be determined Vital Signs: Date Time Temp Pulse Resp B/P (MAP) Pulse Ox O2 Delivery O2 Flow Rate FiO2 01/04/18 16:00 Nasal Cannula 3.0 01/04/18 16:00 37.0 78 18 130/57 (81) 94 Nasal Cannula 3.0 01/04/18 14:45 80 20 97 Nasal Cannula 3.0 01/04/18 13:54 37.0 79 22 94/46 (62) 95 Nasal Cannula 3.0 01/04/18 13:35 82 22 96/46 (63) 01/04/18 13:34 85 29 96/46 (63) 01/04/18 13:01 79 4 96/47 (63) 97 01/04/18 13:00 77 14 96 01/04/18 12:01 78 22 113/52 (72) 95 01/04/18 12:00 78 21 96 01/04/18 11:30 Nasal Cannula 3.0 01/04/18 11:30 37.0 88 22 107/46 (66) 95 Nasal Cannula 3.0 01/04/18 11:02 82 20 92 Nasal Cannula 3.0 01/04/18 11:02 77 15 131/ (43) 98 01/04/18 11:00 82 21 95 01/04/18 10:01 73 18 107/46 (66) 99 01/04/18 10:00 73 18 99 01/04/18 09:41 74 19 115/50 (71) 98 01/04/18 09:38 78 26 92/43 (59) 97 01/04/18 09:30 36.6 74 22 98/44 (62) 97 Nasal Cannula 3.0 01/04/18 09:00 73 20 96 01/04/18 08:00 75 19 95 01/04/18 07:30 36.6 78 22 133/62 (85) 93 Nasal Cannula 3.0 01/04/18 07:30 Nasal Cannula 3.0 01/04/18 07:25 90 20 94 Nasal Cannula 3.0 01/04/18 07:01 69 24 133/61 (85) 98 01/04/18 07:00 70 25 98 01/04/18 05:02 67 28 100/54 (69) 88 Nasal Cannula 3.0 01/04/18 04:21 71 20 152/67 (95) 91 Nasal Cannula 3.0 01/04/18 04:01 37.0 68 13 113/55 (74) 96 Nasal Cannula 3.0 01/04/18 04:00 Nasal Cannula 3.0 01/04/18 02:01 68 21 115/53 (73) 97 Nasal Cannula 3.0 01/04/18 00:01 36.6 80 17 99/57 (71) 91 Nasal Cannula 3.0 01/04/18 00:00 Nasal Cannula 3.0 01/03/18 22:01 81 26 103/58 (73) 93 Nasal Cannula 3.0 01/03/18 21:01 37.0 77 23 135/59 (84) 96 Nasal Cannula 3.0 01/03/18 20:01 79 20 92 Nasal Cannula 3.0 01/03/18 20:01 80 22 126/53 (77) 89 Nasal Cannula 3.0 01/03/18 20:00 Nasal Cannula 3.0 01/03/18 19:01 74 20 127/64 (85) 96 Nasal Cannula 3.0 Lab Results: Results Past 24 Hours Test 01/03/18 18:30 01/03/18 20:35 01/04/18 00:07 01/04/18 04:13 Range/Units Bedside Glucose 86 132 108 70-99 mg/dl Test 01/04/18 04:59 01/04/18 05:48 01/04/18 06:20 01/04/18 10:48 Range/Units Prothrombin Time 39.4 9.0-12.0 SECONDS Prothromb Time International Ratio 3.9 0.9-1.1 Sodium Level 141 136-145 mmol/L Potassium Level 3.7 3.5-5.1 mmol/L Chloride Level 104 98-107 mmol/L Carbon Dioxide Level 29 21-32 mmol/L Anion Gap 8.0 3-11 mmol/L Blood Urea Nitrogen 50 7-18 mg/dl Creatinine 2.33 0.60-1.40 mg/dl Est Creatinine Clear Calc Drug Dose 25.0 ml/min Estimated GFR () 28.3 Estimated GFR (Non- 24.4 BUN/Creatinine Ratio 21.4 10-20 Random Glucose 122 70-99 mg/dl Calcium Level 7.4 8.5-10.1 mg/dl Phosphorus Level 4.2 2.5-4.9 mg/dl Magnesium Level 2.2 1.8-2.4 mg/dl White Blood Count 10.76 4.8-10.8 K/uL Red Blood Count 3.90 4.7-6.1 M/uL Hemoglobin 11.5 14.0-18.0 g/dL Hematocrit 36.1 42-52 % Mean Corpuscular Volume 92.6 80-100 fL Mean Corpuscular Hemoglobin 29.5 25-34 pg Mean Corpuscular Hemoglobin Concent 31.9 32-36 g/dl RDW Standard Deviation 51.1 36.4-46.3 fL RDW Coefficient of Variation 15.4 11.5-14.5 % Platelet Count 113 130-400 K/uL Mean Platelet Volume 9.0 7.4-10.4 fL Bedside Glucose 111 146 70-99 mg/dl Test 01/04/18 16:08 01/04/18 16:09 01/04/18 16:28 01/04/18 17:04 Range/Units Bedside Glucose 53 42 62 114 70-99 mg/dl
[2018-01-05] VITALS (12 sets, daily range): BP systolic 106–128; BP diastolic 51–64; PULSE 70–85; TEMP 36.4–37; O2SAT 92–98; Ht 182.9 cm; Wt 77.8 kg
[2018-01-05] MEDS: INSULIN ASPART 100 UNITS/ML 3 ML PEN SC SCH ×6 (04:00→20:18)
[2018-01-05 06:25] LABS: INR 2.9 (0.9-1.1); PTT PATIENT 39.7 SECONDS (21.0-31.0)
[2018-01-05 06:49] LABS: CALCIUM 7.5 mg/dl (8.5-10.1); CREATININE 2.03 mg/dl (0.60-1.40); POTASSIUM 4.1 mmol/L (3.5-5.1)
[2018-01-05] MEDS: LEVALBUTEROL 1.25MG/0.5ML NEB INH SCH ×4 (07:38→19:03)
[2018-01-05] MEDS: IPRATROPIUM BROMIDE NEB SOLN 0.02% 2.5 ML VIAL INH SCH ×4 (07:38→19:03)
[2018-01-05] MEDS: INSULIN GLARGINE SOLOSTAR 100 UNITS/ML 3 ML PEN SC SCH (08:41)
[2018-01-05] MEDS: VORICONAZOLE 200 MG TAB PO SCH ×2 (08:42→20:01)
[2018-01-05] MEDS: TORSEMIDE 20 MG TAB PO SCH (08:43)
[2018-01-05] MEDS: FINASTERIDE 5 MG TAB PO SCH (08:45)
[2018-01-05] MEDS: TAMSULOSIN HCL 0.4 MG CAP PO SCH ×2 (08:45→20:00)
[2018-01-05] MEDS: POTASSIUM CHLORIDE 10 MEQ TABCR PO SCH (08:46)
[2018-01-05] MEDS: DOXYCYCLINE HYCLATE 100 MG CAP PO SCH ×2 (08:46→19:59)
[2018-01-05] MEDS: LINEZOLID 600 MG TAB PO SCH ×2 (08:46→20:00)
[2018-01-05] MEDS: MAGNESIUM CHLORIDE 64MG DELAYED REL TAB PO SCH (08:46)
[2018-01-05] MEDS: PANTOprazole SOD 40 MG TAB PO SCH (08:47)
[2018-01-05] MEDS: GUAIFENESIN 600 MG TABCR PO SCH ×2 (08:48→20:00)
[2018-01-05] MEDS: CHOLECALCIFEROL 1000 INTER.UNIT TAB PO SCH (08:48)
--- NOTE | 2018-01-05 11:12 | INFECT. DISEASE CONSULTATION ---
DATE OF CONSULTATION: 01/05/2018 HISTORY OF PRESENT ILLNESS: This is an 87-year-old gentleman who has a history of atrial flutter, on anticoagulation, diabetes, hypertension. He was seen on 12/15/2017 at an outpatient clinic for a nonproductive cough that had persisted for 2 weeks prior to evaluation. He was also found to be markedly hypoxic with room air saturation of 86%. This did improve with nasal cannula. He was evaluated at the outpatient clinic and a chest x-ray did show left lower lobe pneumonia. He was subsequently sent to the Emergency Room for additional evaluation. In the Emergency Room, blood cultures were obtained, those are negative and final. A sputum culture was obtained on 12/15/2017 and grew MSSA. A flu swab was done in the Emergency Room and was positive for influenza A; however, the patient has not been offered treatment to date. He initially had a white blood cell count that was elevated and it has been elevated throughout his admission. In fact, yesterday it was 22,000. Today it is normal at 10.7. He did initially have fevers upon admission to the hospital and was febrile for the first 48-72 hours after admission, but his last documented fever was on 12/18/2017. He has had continued oxygen requirements and has been on multiple courses of antibiotics. Per review of records, he was started on Zosyn, Rocephin and azithromycin. He continued with Rocephin from 12/15/2017 until 12/22/2017. He was on Zosyn from 12/15/2017 until present time. He did receive a dose of vancomycin on 12/17/2017. He also had a course of azithromycin. Most recently, he has been on Zyvox and voriconazole since 01/01/2018 and he has also been on doxycycline which was added yesterday. He also received a course of doxycycline from 12/18/2017 to 12/22/2017. His creatinines have been in the 2 range. Most recently, his infectious workup has consisted of a negative procalcitonin of 0.1 on 01/02/2018. No additional blood cultures have been obtained. He did undergo a CAT scan of the chest on 01/01/2018 which showed bilateral infiltrates. He did have a repeat sputum culture done on 01/02/2018 as well which showed normal ruben. There was moderate yeast seen on Gram stain and he was subsequently started on voriconazole. Infectious diseases is consulted for voriconazole approval. He also is on Zyvox since 01/01/2018. He continues to feel somewhat fatigued but overall states he is feeling better. He states overall his breathing is better. He denies any chest pain, productive cough or fevers or chills on my examination. Again, he has been afebrile since 12/18/2017. His remaining review of systems is unremarkable. MEDICAL HISTORY: As above. SOCIAL HISTORY: Negative for tobacco use, alcohol use or drug use. ALLERGIES: He has no known drug allergies. FAMILY HISTORY: Noncontributory. CURRENT MEDICATIONS: Include insulin, doxycycline, Lantus, Zyvox, voriconazole, torsemide, potassium, Proscar, Flomax, Desenex, Atrovent, Mucinex, vitamin D, magnesium, Protonix, Atrovent, Tylenol, milk of magnesia, Maalox, Zofran and MiraLax. PHYSICAL EXAMINATION: VITAL SIGNS: He is currently afebrile and has been for some time, pulse 73, respiratory rate 20, blood pressure 106/54, oxygen saturation is 92-97% on 3 liters nasal cannula. GENERAL: He is awake, alert and oriented x3. He is in no acute distress. HEENT: Mucous membranes are dry. Extraocular muscles are intact. HEART: Regular. LUNGS: Clear bilaterally with decreased breath sounds at the bases. There are no rhonchi or wheezing. ABDOMEN: Soft. There is no edema. LABORATORY STUDIES: CBC 01/04/2018 reveals a white blood cell count of 10.7, hemoglobin 11.5, platelets 113. Chemistry panel reveals sodium of 141, potassium 4.1, chloride 103, bicarbonate 32, BUN 39, creatinine 2.0, glucose is 149. Procalcitonin was negative. Urinalysis on admission was negative. Again, flu swab is positive for influenza A. Urine legionella is pending. A beta glucan is pending. Aspergillus antibodies are pending. Blood cultures from 12/15/2017 are negative and final. A sputum culture from 12/15/2017 grew MSSA. Repeat sputum from 01/02/2018 is normal ruben only. Doppler done on 01/03/2018 showed DVT in the right lower extremity. CAT scan of the chest again showed bilateral pneumonia. ASSESSMENT AND PLAN: Influenza with secondary bacterial pneumonia growing MSSA. No treatment for influenza was given and this certainly could be contributing to the patient's prolonged recovery. I do not know what, if any, benefit would be added by offering Tamiflu at this time. He has been treated with multiple antibiotics which would cover MSSA, preferably a 14-day course would be adequate and it does appear between the various antibiotics he has received, that he has received a 14-day course, I do not have any increased concern or risk for Aspergillus infection in this individual and I feel that he could be followed off voriconazole. Additionally, there have been no gram negatives and Zosyn could be discontinued from an ID perspective. He remains on doxycycline pending Legionella and mycoplasma studies; if these are negative, certainly this could be discontinued. He will continue to need supportive respiratory care. Thank you for this consultation.
--- NOTE | 2018-01-05 11:13 | Progress Note ---
Progress Note Date of Service Jan 05, 2018. Progress Note ID Consult Dictated #[id number] A/P: 1. Influenza with secondary bacterial pna -MSSA Suggestions: -Has completed course for MSSA -Unclear if any benefit added to treating flu at this point, no previous treatment -Continue supportive care -Ok to stop zosyn and voriconazole from ID standpoint -Thank you
--- NOTE | 2018-01-05 14:13 | Pharmacy Progress Note ---
Glycemic: Assessment & Plan Date of Service Jan 05, 2018. Assessment & Plan The patient is currently receiving 51 units of insulin per day. BSGs ranging 53 - 230 mg/dl over the past 24hrs. Patient is overall much better controlled, however, dinner BSG has consistently been low the last two days, despite being well controlled at lunch on the same scale. To try and remedy this, I will use two different novolog scales. I loosened the 0645 novolog slightly and significantly loosened the novolog scale for the rest of the day. The current lantus regimen appears to be sufficient given fasting BSGs. * Basal insulin: Lantus 25 units every am * Correctional Insulin: Novolog Correction per scale 0645 Goal Range: Low 120 mg/dL - High 160 mg/dL Correction Factor: 15 mg/dL/unit * Prandial insulin: Per carb ratio of 1 unit per 5 grams CHO consumed * Correctional Insulin: Novolog Correction per scale 1100,1600,2100,0000,0400 Goal Range: Low 120 mg/dL - High 160 mg/dL Correction Factor: 20 mg/dL/unit * Prandial insulin: Per carb ratio of 1 unit per 8 grams CHO consumed * Please note that the plan above was derived based on current level of insulin resistance and hospital stress. These recommendations are appropriate for inpatient admission only. Plan of care upon discharge will need to be reassessed to avoid potential outpatient hypo/hyperglycemia.
--- NOTE | 2018-01-05 14:36 | Progress Note ---
Internal Med Progress Note Date of Service: Jan 05, 2018. Provider Documentation: SUBJECTIVE: says sob is somewhat better than yesterday slept ok denies any chest pain no nausea eating ok afebrile weak wants to go home soon OBJECTIVE: Vital Signs-as noted below Exam: General-alert and oriented. ENT-Normal hearing Neck-no neck masses Lungs-cta b/l no wheezing mild bibasilar crackles present Heart-S1 and S2 heard regular rate and rhythm no murmurs Abdomen-Soft bowel sounds present non tender no distension Extremities-no edema no erythema Neuro-alert and awake moves extremities Lab data as noted below. ASSESSMENT & PLAN: ACUTE HYPOXEMIC RESPIRATORY FAILURE-Progressing towards ARDS Presented with SOB /cough for 1 week and noted to have spo2 86 in RA , improved with supplemental 02 Secondary to pneumonia FLU was positive but was not treated as he had symptoms > 1 week later developed pneumonia sputum cx growing MSSa was transferred to ICU as repeat ct chest showed worsening infiltration amiodarone was stopped for possible amiodarone toxicity received Lasix for fluid overload Appreciate pulmonary and critical care inputs received broad spectrum abx currently on iv Zosyn and Zyvox to complete 10 day course on doxycycline and to stop it if negative for atypicals on voriconazole - awaiting fungal studies no plan for bronchoscopy or ct scan as risks out weights benefits as per critical care consulted ID for further recommendations on abx improving slowly continue to monitor BILATERAL MULTILOBAR PNEUMONIA pneumonia in setting FLU Started on IV Zosyn ( for pseudomonal coverage in setting of Type 2 DM / hyperglycemia ) Blood CULTURE-NEGATIVE and sputum culture :Staph Aureus.MSSA Received Vancomycin ,Changed to Ceftriaxone and Doxycycline Received Solumedrol and Prednisone-discontinued on 01/02/18 Pulmonary consulted-appreciate input currently on abx as above improving 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 Amiodarone stopped Cardiology is on board HYPERGLYCEMIA WITH TYPE 2 DM On Lantus 22 U HS Started on IV insulin protocol currently on Lantus and iss Pharmacy consulted for glycemic management Hb A1c 9.8 on 09/2017 Hb A1c 10.4 now close monitor OKSANA ON CKD STAGE 3 due to above received fluids currently on torsemide cr 2.03 today continue to monitor HYPONATREMIA : Due to hyperglycemia received fluids follow PRP -normalized HX OF A FLUTTER : Rate and rhythm controlled amiodarone stopped INR 2.9 today restarting Coumadin 1mg daily f/u inr FULL CODE DISPOSITION ; transferred to tele PT/OT prior to discharge Medicine follow up with Dr Ward Prognosis is poor/guarded to be determined Vital Signs: Date Time Temp Pulse Resp B/P (MAP) Pulse Ox O2 Delivery O2 Flow Rate FiO2 01/05/18 12:00 96 Nasal Cannula 3.0 01/05/18 11:39 36.6 85 22 122/56 (78) 96 Nasal Cannula 3.0 01/05/18 11:10 82 20 94 Nasal Cannula 3.0 01/05/18 08:00 92 Nasal Cannula 3.0 01/05/18 07:38 73 20 92 Nasal Cannula 3.0 01/05/18 07:36 36.7 76 24 106/54 (71) 92 Nasal Cannula 3.0 01/05/18 04:00 37.0 70 22 115/58 (77) 97 Nasal Cannula 3.0 01/05/18 04:00 Nasal Cannula 3.0 01/04/18 23:59 Nasal Cannula 3.0 01/04/18 23:59 37.1 74 18 128/52 (77) 94 Nasal Cannula 3.0 01/04/18 20:56 Nasal Cannula 3.0 01/04/18 20:00 36.6 82 21 120/55 (76) 97 Nasal Cannula 3.0 01/04/18 19:05 80 20 98 Nasal Cannula 3.0 01/04/18 16:00 Nasal Cannula 3.0 01/04/18 16:00 37.0 78 18 130/57 (81) 94 Nasal Cannula 3.0 01/04/18 14:45 80 20 97 Nasal Cannula 3.0 Lab Results: Results Past 24 Hours Test 01/04/18 16:08 01/04/18 16:09 01/04/18 16:28 01/04/18 17:04 Range/Units Bedside Glucose 53 42 62 114 70-99 mg/dl Test 01/04/18 20:31 01/05/18 00:21 01/05/18 05:34 01/05/18 06:00 Range/Units Bedside Glucose 137 158 149 70-99 mg/dl Prothrombin Time 30.1 9.0-12.0 SECONDS Prothromb Time International Ratio 2.9 0.9-1.1 Activated Partial Thromboplast Time 39.7 21.0-31.0 SECONDS Partial Thromboplastin Ratio 1.5 Sodium Level 141 136-145 mmol/L Potassium Level 4.1 3.5-5.1 mmol/L Chloride Level 103 98-107 mmol/L Carbon Dioxide Level 32 21-32 mmol/L Anion Gap 6.0 3-11 mmol/L Blood Urea Nitrogen 39 7-18 mg/dl Creatinine 2.03 0.60-1.40 mg/dl Est Creatinine Clear Calc Drug Dose 28.7 ml/min Estimated GFR () 33.4 Estimated GFR (Non- 28.8 BUN/Creatinine Ratio 19.4 10-20 Random Glucose 140 70-99 mg/dl Calcium Level 7.5 8.5-10.1 mg/dl
[2018-01-05] MEDS: WARFARIN SOD 1 MG TAB PO SCH (16:25)
[2018-01-06] VITALS (17 sets, daily range): BP systolic 91–164; BP diastolic 52–75; PULSE 74–96; TEMP 36.5–37.1; O2SAT 95–99
[2018-01-06] MEDS: INSULIN ASPART 100 UNITS/ML 3 ML PEN SC SCH ×3 (04:00→08:36)
[2018-01-06 06:31] LABS: HEMATOCRIT 36.8 % (42-52); HEMOGLOBIN 11.8 g/dL (14.0-18.0); MEAN CELL VOLUME 93.4 fL (80-100); MEAN CORPUSCULAR HEMOGLOBIN 29.9 pg (25-34); MEAN CORPUSCULAR HGB CONC 32.1 g/dl (32-36); RED CELL DISTRIBUTION WIDTH CV 15.4 % (11.5-14.5); RED CELL DISTRIBUTION WIDTH SD 52.2 fL (36.4-46.3); WHITE BLOOD COUNT 9.49 K/uL (4.8-10.8)
[2018-01-06] MEDS: IPRATROPIUM BROMIDE NEB SOLN 0.02% 2.5 ML VIAL INH SCH ×4 (06:53→19:48)
[2018-01-06] MEDS: LEVALBUTEROL 1.25MG/0.5ML NEB INH SCH ×4 (06:53→19:48)
[2018-01-06 06:56] LABS: CALCIUM 7.7 mg/dl (8.5-10.1); CREATININE 2.07 mg/dl (0.60-1.40); POTASSIUM 4.3 mmol/L (3.5-5.1)
[2018-01-06 07:14] LABS: EOS % 5.7 %; EOS ABS # 0.54 K/uL (0-0.5); IG# 0.06 K/uL (0.00-0.02); LYMPH % 12.1 %; LYMPH ABS # 1.15 K/uL (1.2-3.4); MEAN PLATELET VOLUME 9.8 fL (7.4-10.4); MONO ABS # 0.47 K/uL (0.11-0.59); NEUT % 76.6 %; NEUT ABS # 7.27 K/uL (1.4-6.5); PLATELET COUNT 90 K/uL (130-400)
[2018-01-06] MEDS: MAGNESIUM CHLORIDE 64MG DELAYED REL TAB PO SCH (08:37)
[2018-01-06] MEDS: PANTOprazole SOD 40 MG TAB PO SCH (08:37)
[2018-01-06] MEDS: DOXYCYCLINE HYCLATE 100 MG CAP PO SCH ×2 (08:37→20:34)
[2018-01-06] MEDS: GUAIFENESIN 600 MG TABCR PO SCH ×2 (08:38→20:33)
[2018-01-06] MEDS: POTASSIUM CHLORIDE 10 MEQ TABCR PO SCH (08:38)
[2018-01-06] MEDS: CHOLECALCIFEROL 1000 INTER.UNIT TAB PO SCH (08:38)
[2018-01-06] MEDS: TORSEMIDE 20 MG TAB PO SCH (08:39)
[2018-01-06] MEDS: LINEZOLID 600 MG TAB PO SCH ×2 (08:39→20:34)
[2018-01-06] MEDS: FINASTERIDE 5 MG TAB PO SCH (08:39)
[2018-01-06] MEDS: TAMSULOSIN HCL 0.4 MG CAP PO SCH (08:39)
[2018-01-06] MEDS: VORICONAZOLE 200 MG TAB PO SCH (08:40)
[2018-01-06] MEDS: INSULIN GLARGINE SOLOSTAR 100 UNITS/ML 3 ML PEN SC SCH (08:47)
--- NOTE | 2018-01-06 12:45 | DIAGNOSTIC IMAGING REPORT ---
CHEST ONE VIEW PORTABLE CLINICAL HISTORY: hypoxia dyspnea COMPARISON STUDY: 01/01/2018 FINDINGS: Diffuse parenchymal infiltrative change right hemithorax unaltered from the prior study. Trace amount of right supraclavicular subcutaneous emphysematous change. Unchanging infiltrative change left base. Baseline emphysematous change stable IMPRESSION: 1. Interval development of a small amount of right superior low cervical subcutaneous emphysematous change. 2. Unchanging infiltrative process right apex and left as well as right base. The above report was generated using voice recognition software. It may contain grammatical, syntax or spelling errors. Electronically signed by: Raul Gamez M.D. 01/06/2018 12:43 PM Dictated Date/Time: 01/06/2018 12:41 PM
--- NOTE | 2018-01-06 14:59 | Pharmacy Progress Note ---
Pharmacy Glycemic Short Note 2 Date of Service Jan 06, 2018. OUTPATIENT ANTIDIABETIC REGIMEN: * Lantus 22 units SQ daily at dinner * HbA1c: 10.4% (12/15/17) ASSESSMENT: * Mr Burgess is an 87yo T2DM male whose BSGs have been difficult to manage. * Trend seems to be hyperglycemia at lunchtime and hypoglycemia at dinnertime, despite multiple adjustments to insulin regimen. * For today, trial of Novolog/carb coverage with breakfast ONLY. Will incorporate coverage throughout the later parts of the day if patient becomes hyperglycemic. * May consider transitioning to HS Lantus, as it seems as though patient uses it that way at home, and it may also help to reduce the risk of evening hypoglycemia. PLAN FOR INPATIENT GLYCEMIC CONTROL: * Basal insulin - * Lantus 22 units SQ once daily * Bolus insulin * Novolog with breakfast ONLY * Correction Factor: 15 mg/dL/unit * Carbohydrate ratio of 1 unit per 6 grams of carbs consumed * Goal range: 120-160 mg/dL PLAN FOR DISCHARGE: * Current A1c (10.4%) indicates sub-optimal glycemic control as an outpatient. * CDE spoke with patient this admission and it seems that he is compliant with his Lantus. * Consider adding prandial coverage or increasing Lantus on discharge (although , patient reports reasonable fasting BSGs). * Recommend f/u with PCP for DM management after discharge to optimize A1c. * Recommend increase in SMBG after discharge until BSGs improve.
[2018-01-06] MEDS: WARFARIN SOD 1 MG TAB PO SCH (15:55)
--- NOTE | 2018-01-06 17:19 | Cardiology Follow-Up ---
Subjective General Date of Service: Jan 06, 2018. Chief Complaint: Follow-up lightheadedness Pt evaluation today including: conversation w/ patient, physical exam History of Present Illness The patient is a 87 year old male seen in reassessment per the request of Dr. Singleton in the family for evaluation of dizziness when he sits up in bed or stands up. He denies any chest pain. Telemetry reveals sinus rhythm and 85 bpm range. Blood pressures have been relatively stable, but his symptoms are consistent with orthostatic hypotension. Allergies Coded Allergies: No Known Allergies (Unverified , 05/19/13) Social History Smoking Status: Former Smoker Hx Tobacco Use In Past Year?: No Hx Alcohol Use - Type And Amou: Yes (about 1 beer per month) Hx Substance Use - Type And Am: No Problem List Medical Problems: (1) Hyperglycemia Status: Acute (2) Hypoxia Status: Acute (3) Renal insufficiency Status: Acute Physical Exam Vital Signs Last Vital Signs Documentation Date Time Temp Pulse Resp B/P (MAP) Pulse Ox O2 Delivery O2 Flow Rate FiO2 01/06/18 16:18 36.7 75 18 130/74 (92) 98 Nasal Cannula 3.0 Physical Exam Constitutional: Level of Distress: chronically ill Cardiovascular: Heart Auscultation: RRR, no murmurs Extremities: no edema Neurologic: Gait & Station: pertinent finding (No focal deficits) Assessment and Plan Assessment and Plan Impression: Symptoms consistent with orthostatic hypotension History of atrial arrhythmias, past history of tachycardia and his cardia myopathy, normal LVEF, RVEF this admission Admission for acute hypoxemic respiratory failure due to pneumonia Recommendations: I reviewed the patient's medications. The only medications that can be implicated in lowering his blood pressure that he is on at this point are torsemide and Flomax 0.4 mg twice daily. I counseled the patient's family that I believe he requires a torsemide to prevent volume overload. He is typically on Flomax 4 mg twice daily for prostatism. I offered that perhaps we can reduce this to 4 mg 1 time per day to see if this helps his symptoms. He previously been on chronic amiodarone therapy for suppression of atrial arrhythmias given history of tachycardia induced cardiomyopathy. He remains in sinus rhythm, off of amiodarone. Amiodarone was discontinued earlier on this hospital stay due to concerns that it could be contributing to worsening lung function. Laboratory Results Last 24 Hours Test 01/05/18 20:11 01/05/18 23:28 01/05/18 23:53 01/06/18 03:39 Bedside Glucose 98 mg/dl 60 mg/dl 78 mg/dl 109 mg/dl Test 01/06/18 05:39 01/06/18 07:45 01/06/18 10:21 01/06/18 11:21 White Blood Count 9.49 K/uL Red Blood Count 3.94 M/uL Hemoglobin 11.8 g/dL Hematocrit 36.8 % Mean Corpuscular Volume 93.4 fL Mean Corpuscular Hemoglobin 29.9 pg Mean Corpuscular Hemoglobin Concent 32.1 g/dl Platelet Count 90 K/uL Mean Platelet Volume 9.8 fL Neutrophils (%) (Auto) 76.6 % Lymphocytes (%) (Auto) 12.1 % Monocytes (%) (Auto) 5.0 % Eosinophils (%) (Auto) 5.7 % Basophils (%) (Auto) 0.0 % Neutrophils # (Auto) 7.27 K/uL Lymphocytes # (Auto) 1.15 K/uL Monocytes # (Auto) 0.47 K/uL Eosinophils # (Auto) 0.54 K/uL Basophils # (Auto) 0.00 K/uL RDW Standard Deviation 52.2 fL RDW Coefficient of Variation 15.4 % Immature Granulocyte % (Auto) 0.6 % Immature Granulocyte # (Auto) 0.06 K/uL Hypersegmented Polys OCCASIONAL Platelet Estimate DECREASED Prothrombin Time 21.1 SECONDS Prothromb Time International Ratio 2.0 Sodium Level 139 mmol/L Potassium Level 4.3 mmol/L Chloride Level 101 mmol/L Carbon Dioxide Level 31 mmol/L Anion Gap 7.0 mmol/L Blood Urea Nitrogen 41 mg/dl Creatinine 2.07 mg/dl Est Creatinine Clear Calc Drug Dose 28.1 ml/min Estimated GFR () 32.6 Estimated GFR (Non- 28.2 BUN/Creatinine Ratio 19.6 Random Glucose 137 mg/dl Calcium Level 7.7 mg/dl Magnesium Level 2.2 mg/dl Bedside Glucose 130 mg/dl 222 mg/dl Arterial Blood pH 7.50 Arterial Blood Partial Pressure CO2 37 mmHg Arterial Blood Partial Pressure O2 104 mm/Hg Arterial Blood HCO3 28 mmol/L Arterial Blood Oxygen Saturation 98.0 % Arterial Blood Base Excess 4.8 mEq/L Arterial Blood Gas Delivery 3 L Santana Test POS Test 01/06/18 11:38 01/06/18 16:40 Bedside Glucose 141 mg/dl 163 mg/dl
--- NOTE | 2018-01-06 18:30 | Progress Note ---
Internal Med Progress Note Date of Service: Jan 06, 2018. Provider Documentation: SUBJECTIVE: patient had an episode of pre syncope in bathroom today after that he was fine and was oriented denies any chest pain or sob afebrile BP was low during that episode sats are ok no headaches moving his extremities fine. speech ok OBJECTIVE: Vital Signs-as noted below Exam: General-alert and oriented. ENT-Normal hearing Neck-no neck masses Lungs-cta b/l no wheezing mild bibasilar crackles present Heart-S1 and S2 heard regular rate and rhythm no murmurs Abdomen-Soft bowel sounds present non tender no distension Extremities-no edema no erythema Neuro-alert and awake moves extremities non focal Lab data as noted below. ASSESSMENT & PLAN: ACUTE HYPOXEMIC RESPIRATORY FAILURE- Presented with SOB /cough for 1 week and noted to have spo2 86 in RA , improved with supplemental 02 Secondary to pneumonia FLU was positive but was not treated as he had symptoms > 1 week later developed pneumonia sputum cx growing MSSa was transferred to ICU as repeat ct chest showed worsening infiltration amiodarone was stopped for possible amiodarone toxicity received Lasix for fluid overload Appreciate pulmonary and critical care inputs received broad spectrum abx currently on iv Zosyn and Zyvox to complete 10 day course on doxycycline and to stop it if negative for atypicals on voriconazole - awaiting fungal studies no plan for bronchoscopy or ct scan as risks out weights benefits as per critical care consulted ID for further recommendations on abx improving slowly cxr right superior low cervical subcutaneous emphysematous change - will f/u ct chest BILATERAL MULTILOBAR PNEUMONIA pneumonia in setting FLU Started on IV Zosyn ( for pseudomonal coverage in setting of Type 2 DM / hyperglycemia ) Blood CULTURE-NEGATIVE and sputum culture :Staph Aureus.MSSA Received Vancomycin ,Changed to Ceftriaxone and Doxycycline Received Solumedrol and Prednisone-discontinued on 01/02/18 Pulmonary consulted-appreciate input currently on abx as above improving 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 Amiodarone stopped Cardiology is on board Orthostatic hypotension presyncope Flomax dose cut back to once daily by cardiology continue to monitor HYPERGLYCEMIA WITH TYPE 2 DM On Lantus 22 U HS Started on IV insulin protocol currently on Lantus and iss Pharmacy consulted for glycemic management Hb A1c 9.8 on 09/2017 Hb A1c 10.4 now close monitor OKSANA ON CKD STAGE 3 due to above received fluids currently on torsemide cr 2.03 today continue to monitor HYPONATREMIA : Due to hyperglycemia received fluids follow PRP -normalized HX OF A FLUTTER : Rate and rhythm controlled amiodarone stopped INR 2.0 today restartedCoumadin 1mg daily f/u inr FULL CODE DISPOSITION ; monitor in tele PT/OT prior to discharge Medicine follow up with Dr Ward Prognosis is poor/guarded to be determined Vital Signs: Date Time Temp Pulse Resp B/P (MAP) Pulse Ox O2 Delivery O2 Flow Rate FiO2 01/06/18 16:18 36.7 75 18 130/74 (92) 98 Nasal Cannula 3.0 01/06/18 16:00 98 Nasal Cannula 3.0 01/06/18 15:37 75 20 98 Nasal Cannula 3.0 01/06/18 12:00 Nasal Cannula 2.0 01/06/18 11:50 37.1 75 18 113/70 (84) 99 Nasal Cannula 3.0 01/06/18 11:30 75 20 98 Nasal Cannula 3.0 01/06/18 10:47 76 18 127/75 (92) 98 01/06/18 10:40 76 164/75 (104) 95 Nasal Cannula 3.0 01/06/18 10:20 96 91/52 (65) 01/06/18 08:35 85 106/60 (75) 01/06/18 08:00 Nasal Cannula 2.0 01/06/18 07:39 36.5 74 20 138/63 (88) 98 Nasal Cannula 2.0 01/06/18 06:59 77 20 98 Nasal Cannula 3.0 01/06/18 04:29 36.6 82 20 96 3.0 01/06/18 04:00 96 Nasal Cannula 3.0 01/06/18 03:55 36.6 82 20 126/56 (79) 96 Nasal Cannula 3.0 01/05/18 23:59 Nasal Cannula 3.0 01/05/18 23:59 36.4 85 20 113/51 (71) 92 Nasal Cannula 3.0 01/05/18 20:00 36.8 82 18 128/58 (81) 96 Nasal Cannula 3.0 01/05/18 20:00 Nasal Cannula 3.0 01/05/18 19:05 78 22 98 Nasal Cannula 3.0 Lab Results: Results Past 24 Hours Test 01/05/18 20:11 01/05/18 23:28 01/05/18 23:53 01/06/18 03:39 Range/Units Bedside Glucose 98 60 78 109 70-99 mg/dl Test 01/06/18 05:39 01/06/18 07:45 01/06/18 10:21 01/06/18 11:21 Range/Units White Blood Count 9.49 4.8-10.8 K/uL Red Blood Count 3.94 4.7-6.1 M/uL Hemoglobin 11.8 14.0-18.0 g/dL Hematocrit 36.8 42-52 % Mean Corpuscular Volume 93.4 80-100 fL Mean Corpuscular Hemoglobin 29.9 25-34 pg Mean Corpuscular Hemoglobin Concent 32.1 32-36 g/dl Platelet Count 90 130-400 K/uL Mean Platelet Volume 9.8 7.4-10.4 fL Neutrophils (%) (Auto) 76.6 % Lymphocytes (%) (Auto) 12.1 % Monocytes (%) (Auto) 5.0 % Eosinophils (%) (Auto) 5.7 % Basophils (%) (Auto) 0.0 % Neutrophils # (Auto) 7.27 1.4-6.5 K/uL Lymphocytes # (Auto) 1.15 1.2-3.4 K/uL Monocytes # (Auto) 0.47 0.11-0.59 K/uL Eosinophils # (Auto) 0.54 0-0.5 K/uL Basophils # (Auto) 0.00 0-0.2 K/uL RDW Standard Deviation 52.2 36.4-46.3 fL RDW Coefficient of Variation 15.4 11.5-14.5 % Immature Granulocyte % (Auto) 0.6 % Immature Granulocyte # (Auto) 0.06 0.00-0.02 K/uL Hypersegmented Polys OCCASIONAL Platelet Estimate DECREASED Prothrombin Time 21.1 9.0-12.0 SECONDS Prothromb Time International Ratio 2.0 0.9-1.1 Sodium Level 139 136-145 mmol/L Potassium Level 4.3 3.5-5.1 mmol/L Chloride Level 101 98-107 mmol/L Carbon Dioxide Level 31 21-32 mmol/L Anion Gap 7.0 3-11 mmol/L Blood Urea Nitrogen 41 7-18 mg/dl Creatinine 2.07 0.60-1.40 mg/dl Est Creatinine Clear Calc Drug Dose 28.1 ml/min Estimated GFR () 32.6 Estimated GFR (Non- 28.2 BUN/Creatinine Ratio 19.6 10-20 Random Glucose 137 70-99 mg/dl Calcium Level 7.7 8.5-10.1 mg/dl Magnesium Level 2.2 1.8-2.4 mg/dl Bedside Glucose 130 222 70-99 mg/dl Arterial Blood pH 7.50 7.35-7.45 Arterial Blood Partial Pressure CO2 37 35-46 mmHg Arterial Blood Partial Pressure O2 104 80-95 mm/Hg Arterial Blood HCO3 28 19-24 mmol/L Arterial Blood Oxygen Saturation 98.0 90-95 % Arterial Blood Base Excess 4.8 -9-1.8 mEq/L Arterial Blood Gas Delivery 3 L Santana Test POS POS Test 01/06/18 11:38 01/06/18 16:40 Range/Units Bedside Glucose 141 163 70-99 mg/dl
--- NOTE | 2018-01-06 19:08 | Pulmonology Progress Note ---
Pulmonary Progress Note Date of Service Jan 06, 2018. Attending Dr. Gerard Subjective Patient notes he is doing much better over the past week. He notes his pulmonary status is improving as well as his overall physical well-being. Objective GENERAL : No acute distress EYES: No icterus, gaze conjugate NOSE: No evidence of epistaxis. Nasal cannula in place MOUTH: No lesions or candidiasis NECK: Supple LUNGS: Decreased breath sounds globally but especially in the right anterior apex HEART: Regular, rate controlled with a rate of 68 ABDOMEN: Soft, NT, ND, BS Present EXTREMITIES: Bilateral LE edema, pedal pulses intact and equal bilaterally. Bilateral upper extremity edema. Radial pulses present and equal bilaterally NEURO: A&OX3 Expectorate sputum 12/15/2017: MSSA PCR assay for influenza A 12/15/2017: Positive Beta D Glucan WNL Assessment & Plan 87-year-old gentleman admitted with respiratory insufficiency and positive MSSA in sputum culture as well as influenza a titers. #1 respiratory: Patient's hypoxic respiratory insufficiency most likely secondary to MSSA pneumonia as well as influenza a. This time the patient has responded well to therapy and is slowly regaining his pulmonary status. I discontinue fluconazole as the patient's fungal titers were notably negative and he has other etiologies for his acute pneumonia/hypoxic events. Signoff: I do not believe pulmonary is necessary at this time please contact the team of the patient's clinical status changes Data Medications: Current Inpatient Medications Medications (Trade) Dose Ordered Sig/Krystal Route Start Time Stop Time Status Last Admin Dose Admin Miscellaneous Information (Consult Glycemic Management Pharmacy) 1 ea UD PRN N/A 12/15/17 18:01 01/14/18 18:00 Acetaminophen (Tylenol Tab) 650 mg Q4H PRN PO 12/15/17 17:15 01/14/18 17:14 12/18/17 05:52 650 MG Al Hydrox/Mg Hydrox/Simethicone (Maalox Max Susp) 15 ml Q4H PRN PO 12/15/17 17:15 01/14/18 17:14 Magnesium Hydroxide (Milk Of Magnesia Susp) 30 ml Q12H PRN PO 12/15/17 17:15 01/14/18 17:14 Ondansetron HCl (Zofran Inj) 4 mg Q6H PRN IV 12/15/17 17:15 01/14/18 17:14 Polyethylene (Miralax Powder Packet) 17 gm DAILY PRN PO 12/15/17 17:15 01/14/18 17:14 Cholecalciferol (Vitamin D Tab) 2,000 inter.unit DAILY PO 12/16/17 09:00 01/15/18 08:59 01/06/18 08:38 2,000 INTER.UNIT Pantoprazole Sodium (Protonix Tab) 40 mg QAM PO 12/16/17 09:00 01/15/18 08:59 01/06/18 08:37 40 MG Ipratropium [place] (Atrovent 0.02% 0.5MG/2.5ML Neb) 0.5 mg Q2H PRN INH 12/15/17 21:15 01/14/18 21:14 12/31/17 23:10 0.5 MG Levalbuterol (Xopenex 1.25MG/ 0.5ML Neb) 1.25 mg Q2H PRN INH 12/15/17 21:15 01/14/18 21:14 12/31/17 23:10 1.25 MG Magnesium Chloride (Slow-Mag Tab) 128 mg DAILY PO 12/17/17 10:45 01/16/18 10:44 01/06/18 08:37 128 MG Guaifenesin (Mucinex Contr Rel Tab) 600 mg Q12 PO 12/21/17 21:00 01/20/18 20:59 01/06/18 08:38 600 MG Ipratropium [place] (Atrovent 0.02% 0.5MG/2.5ML Neb) 0.5 mg Q4RWA INH 12/22/17 12:00 01/15/18 02:59 01/06/18 15:37 0.5 MG Levalbuterol (Xopenex 1.25MG/ 0.5ML Neb) 1.25 mg Q4RWA INH 12/22/17 12:00 01/15/18 02:59 01/06/18 15:37 1.25 MG Miconazole Nitrate (Desenex Powder) 1 appln PRN PRN EXT 12/26/17 03:30 01/25/18 03:29 Finasteride (Proscar Tab) 5 mg QAM PO 12/27/17 09:00 01/26/18 08:59 01/06/18 08:39 5 MG Glucose (Glucose 40% Gel) 15-30 GRAMS 15 GRAMS... UD PRN PO 12/27/17 16:45 01/26/18 16:44 Glucose (Glucose Chew Tab) 4-8 Tablets 4 Tabl... UD PRN PO 12/27/17 16:45 01/26/18 16:44 12/27/17 16:46 4 TABS Dextrose (Dextrose 50% 50ML Syringe) 25-50ML OF 50% DW IV FOR... UD PRN IV 12/27/17 16:45 01/26/18 16:44 Glucagon (Glucagon Inj) 1 mg UD PRN SQ 12/27/17 16:45 01/26/18 16:44 Torsemide (Demadex Tab) 20 mg QAM PO 12/30/17 09:00 01/29/18 08:59 01/06/18 08:39 20 MG Potassium Chloride (Klor-Con M10) 10 meq DAILY PO 12/30/17 09:00 01/29/18 08:59 01/06/18 08:38 10 MEQ Linezolid (Zyvox Tab) 600 mg BID PO 01/01/18 21:00 01/08/18 20:59 01/06/18 08:39 600 MG Voriconazole (Vfend Tab) 300 mg BID PO 01/01/18 21:00 01/11/18 20:59 01/06/18 08:40 300 MG Doxycycline Hyclate (Vibramycin Cap) 100 mg BID PO 01/04/18 09:00 01/11/18 08:59 01/06/18 08:37 100 MG Insulin Aspart (novoLOG ASPART) SLIDING SCALE 0645 SC 01/05/18 06:45 02/04/18 06:44 01/06/18 08:36 8 UNITS Insulin Aspart (novoLOG ASPART) SLIDING SCALE 1100,1600,2100 SC 01/05/18 11:00 02/04/18 10:59 Future Hold 01/05/18 12:41 5 UNITS Warfarin Sodium (Coumadin Tab) 1 mg DAILY@1600 PO 01/05/18 16:00 02/04/18 15:59 01/06/18 15:55 1 MG Insulin Glargine (Lantus Solostar Pen) 22 units QAM SC 01/06/18 09:00 02/05/18 08:59 01/06/18 08:47 22 UNITS Tamsulosin HCl (Flomax Cap) 0.4 mg HS PO 01/07/18 21:00 02/06/18 20:59 I & O: 24-Hour Column 01/07/18 08:00 Intake Total 200 ml Output Total 500 ml Balance -300 ml Vital Signs: Date Time Temp Pulse Resp B/P (MAP) Pulse Ox O2 Delivery O2 Flow Rate FiO2 01/06/18 16:18 36.7 75 18 130/74 (92) 98 Nasal Cannula 3.0 01/06/18 16:00 98 Nasal Cannula 3.0 01/06/18 15:37 75 20 98 Nasal Cannula 3.0 01/06/18 12:00 Nasal Cannula 2.0 01/06/18 11:50 37.1 75 18 113/70 (84) 99 Nasal Cannula 3.0 01/06/18 11:30 75 20 98 Nasal Cannula 3.0 01/06/18 10:47 76 18 127/75 (92) 98 01/06/18 10:40 76 164/75 (104) 95 Nasal Cannula 3.0 01/06/18 10:20 96 91/52 (65) 01/06/18 08:35 85 106/60 (75) 01/06/18 08:00 Nasal Cannula 2.0 01/06/18 07:39 36.5 74 20 138/63 (88) 98 Nasal Cannula 2.0 01/06/18 06:59 77 20 98 Nasal Cannula 3.0 01/06/18 04:29 36.6 82 20 96 3.0 01/06/18 04:00 96 Nasal Cannula 3.0 01/06/18 03:55 36.6 82 20 126/56 (79) 96 Nasal Cannula 3.0 01/05/18 23:59 Nasal Cannula 3.0 01/05/18 23:59 36.4 85 20 113/51 (71) 92 Nasal Cannula 3.0 01/05/18 20:00 36.8 82 18 128/58 (81) 96 Nasal Cannula 3.0 01/05/18 20:00 Nasal Cannula 3.0 Laboratory Results: Last 24 Hours Test 01/05/18 20:11 01/05/18 23:28 01/05/18 23:53 01/06/18 03:39 Bedside Glucose 98 mg/dl 60 mg/dl 78 mg/dl 109 mg/dl Test 01/06/18 05:39 01/06/18 07:45 01/06/18 10:21 01/06/18 11:21 White Blood Count 9.49 K/uL Red Blood Count 3.94 M/uL Hemoglobin 11.8 g/dL Hematocrit 36.8 % Mean Corpuscular Volume 93.4 fL Mean Corpuscular Hemoglobin 29.9 pg Mean Corpuscular Hemoglobin Concent 32.1 g/dl Platelet Count 90 K/uL Mean Platelet Volume 9.8 fL Neutrophils (%) (Auto) 76.6 % Lymphocytes (%) (Auto) 12.1 % Monocytes (%) (Auto) 5.0 % Eosinophils (%) (Auto) 5.7 % Basophils (%) (Auto) 0.0 % Neutrophils # (Auto) 7.27 K/uL Lymphocytes # (Auto) 1.15 K/uL Monocytes # (Auto) 0.47 K/uL Eosinophils # (Auto) 0.54 K/uL Basophils # (Auto) 0.00 K/uL RDW Standard Deviation 52.2 fL RDW Coefficient of Variation 15.4 % Immature Granulocyte % (Auto) 0.6 % Immature Granulocyte # (Auto) 0.06 K/uL Hypersegmented Polys OCCASIONAL Platelet Estimate DECREASED Prothrombin Time 21.1 SECONDS Prothromb Time International Ratio 2.0 Sodium Level 139 mmol/L Potassium Level 4.3 mmol/L Chloride Level 101 mmol/L Carbon Dioxide Level 31 mmol/L Anion Gap 7.0 mmol/L Blood Urea Nitrogen 41 mg/dl Creatinine 2.07 mg/dl Est Creatinine Clear Calc Drug Dose 28.1 ml/min Estimated GFR () 32.6 Estimated GFR (Non- 28.2 BUN/Creatinine Ratio 19.6 Random Glucose 137 mg/dl Calcium Level 7.7 mg/dl Magnesium Level 2.2 mg/dl Bedside Glucose 130 mg/dl 222 mg/dl Arterial Blood pH 7.50 Arterial Blood Partial Pressure CO2 37 mmHg Arterial Blood Partial Pressure O2 104 mm/Hg Arterial Blood HCO3 28 mmol/L Arterial Blood Oxygen Saturation 98.0 % Arterial Blood Base Excess 4.8 mEq/L Arterial Blood Gas Delivery 3 L Santana Test POS Test 01/06/18 11:38 01/06/18 16:40 Bedside Glucose 141 mg/dl 163 mg/dl
[2018-01-06] MEDS ORDERED: INSULIN ASPART 100 UNITS/ML 3 ML PEN SC SCH (21:30)
[2018-01-07] VITALS (11 sets, daily range): BP systolic 121–149; BP diastolic 60–76; PULSE 74–86; TEMP 36.4–36.9; O2SAT 93–100
[2018-01-07] MEDS ORDERED: INSULIN ASPART 100 UNITS/ML 3 ML PEN SC SCH (02:00)
[2018-01-07 07:13] LABS: HEMATOCRIT 36.1 % (42-52); HEMOGLOBIN 11.6 g/dL (14.0-18.0); MEAN CELL VOLUME 93.3 fL (80-100); MEAN CORPUSCULAR HGB CONC 32.1 g/dl (32-36); RED CELL DISTRIBUTION WIDTH CV 15.3 % (11.5-14.5); RED CELL DISTRIBUTION WIDTH SD 52.6 fL (36.4-46.3); WHITE BLOOD COUNT 9.31 K/uL (4.8-10.8)
[2018-01-07] MEDS: IPRATROPIUM BROMIDE NEB SOLN 0.02% 2.5 ML VIAL INH SCH ×4 (07:13→19:23)
[2018-01-07] MEDS: LEVALBUTEROL 1.25MG/0.5ML NEB INH SCH ×4 (07:13→19:23)
[2018-01-07 07:21] LABS: INR 1.6 (0.9-1.1)
[2018-01-07 07:37] LABS: EOS % 5.6 %; EOS ABS # 0.52 K/uL (0-0.5); IG# 0.04 K/uL (0.00-0.02); LYMPH % 13.5 %; LYMPH ABS # 1.26 K/uL (1.2-3.4); MEAN PLATELET VOLUME 9.3 fL (7.4-10.4); MONO % 4.7 %; MONO ABS # 0.44 K/uL (0.11-0.59); NEUT % 75.8 %; NEUT ABS # 7.05 K/uL (1.4-6.5); PLATELET COUNT 81 K/uL (130-400)
[2018-01-07 07:40] LABS: CALCIUM 7.8 mg/dl (8.5-10.1); POTASSIUM 4.3 mmol/L (3.5-5.1)
--- NOTE | 2018-01-07 09:04 | Pharmacy Progress Note ---
Glycemic Control Progress Note Date of Service Jan 07, 2018. Scope Glycemic Pharmacist consulted for glycemic control to write orders per [facility] inpatient glycemic control protocol. Objective Accuchecks BSG (last 24hrs): Test 01/06/18 10:21 01/06/18 11:38 01/06/18 16:40 01/06/18 20:49 Bedside Glucose 222 mg/dl (70-99) 141 mg/dl (70-99) 163 mg/dl (70-99) 311 mg/dl (70-99) Test 01/07/18 01:54 01/07/18 06:37 01/07/18 07:54 Bedside Glucose 137 mg/dl (70-99) 174 mg/dl (70-99) Random Glucose 157 mg/dl (70-99) Recent Pertinent Medications The patient is currently receiving: * Basal insulin: Lantus 22 units every 24 hours Breakfast Novolog * Correctional Insulin: Novolog Correction per scale ACHS Goal Range: Low 120 mg/dL - High 160 mg/dL Correction Factor: 15 mg/dL/unit * Prandial insulin: Per carb ratio of 1 unit per 6 grams CHO consumed Lunch, dinner, bedtime Novolog * None scheduled * 5 units administered at HS 01/06 PM for BSG elevated to 311 mg/dL Outpatient Anti-Diabetic Meds Lantus 22 units SC daily Assessment & Plan ASSESSMENT: * 87 yo M admitted on 12/15/16 for acute respiratory failure. Flu positive - no antiviral treatment. Also with superimposed MSSA PNA - has completed 14 day course per ID. * HbA1c 10.4% - outpatient control inadequate * Patient continues to have significant fluctuation in BSG's, but no hypoglycemia on 01/06 which is an improvement * No Novolog provided at lunch and dinner yesterday caused elevated BSG to 311 mg/dL at HS * Will add back Novolog for lunch, dinner, HS * But will have a very loose carb ratio (mainly to ensure CHO at meals counted to determine if intake contributes to BSG fluctuations) * OK to add back correctional as this will only be administered for BSG greater than 180 mg/dL PLAN FOR INPATIENT GLYCEMIC CONTROL: * Basal insulin * Lantus 22 units SQ qAM * Bolus insulin (breakfast) * NovoLog per scale ACHS or Q6hrs while NPO * Goal Range: Low 120 mg/dL - High 160 mg/dL * Correction Factor: 15 mg/dL/unit * Nutritional / Prandial insulin per carb ratio of 1 unit per 6 grams CHO consumed * Bolus insulin (lunch, dinner, HS) * NovoLog per scale ACHS or Q6hrs while NPO * Goal Range: Low 140 mg/dL - High 180 mg/dL * Correction Factor: 30 mg/dL/unit * Nutritional / Prandial insulin per carb ratio of 1 unit per 20 grams CHO consumed * Please note that the plan above was derived based on current level of insulin resistance and hospital stress. These recommendations are appropriate for inpatient admission only. Plan of care upon discharge will need to be reassessed to avoid potential outpatient hypo/hyperglycemia. Thank you.
[2018-01-07] MEDS: POTASSIUM CHLORIDE 10 MEQ TABCR PO SCH (09:14)
[2018-01-07] MEDS: GUAIFENESIN 600 MG TABCR PO SCH ×2 (09:14→20:31)
[2018-01-07] MEDS: PANTOprazole SOD 40 MG TAB PO SCH (09:14)
[2018-01-07] MEDS: LINEZOLID 600 MG TAB PO SCH ×2 (09:14→20:32)
[2018-01-07] MEDS: CHOLECALCIFEROL 1000 INTER.UNIT TAB PO SCH (09:15)
[2018-01-07] MEDS: MAGNESIUM CHLORIDE 64MG DELAYED REL TAB PO SCH (09:15)
[2018-01-07] MEDS: TORSEMIDE 20 MG TAB PO SCH (09:15)
[2018-01-07] MEDS: FINASTERIDE 5 MG TAB PO SCH (09:15)
[2018-01-07] MEDS: DOXYCYCLINE HYCLATE 100 MG CAP PO SCH ×2 (09:17→20:31)
[2018-01-07] MEDS: INSULIN ASPART 100 UNITS/ML 3 ML PEN SC SCH ×4 (09:24→20:41)
[2018-01-07] MEDS: INSULIN GLARGINE SOLOSTAR 100 UNITS/ML 3 ML PEN SC SCH (09:25)
[2018-01-07] MEDS: WARFARIN SOD 1 MG TAB PO SCH (15:25)
--- NOTE | 2018-01-07 16:14 | Cardiology Follow-Up ---
Subjective General Date of Service: Jan 07, 2018. Chief Complaint: Follow-up lightheadedness Pt evaluation today including: conversation w/ patient, physical exam History of Present Illness The patient is a 87 year old male seen in follow-up. At present he feels well with the exception of musculoskeletal neck pain. He had additional orthostatic hypotension earlier today, reportedly his systolic blood pressure dropped to 60 mmHg with standing. Telemetry reveals stable sinus rhythm in the 80 bpm range. Allergies Coded Allergies: No Known Allergies (Unverified , 05/19/13) Social History Smoking Status: Former Smoker Hx Tobacco Use In Past Year?: No Hx Alcohol Use - Type And Amou: Yes (about 1 beer per month) Hx Substance Use - Type And Am: No Problem List Medical Problems: (1) Hyperglycemia Status: Acute (2) Hypoxia Status: Acute (3) Renal insufficiency Status: Acute Physical Exam Vital Signs Last Vital Signs Documentation Date Time Temp Pulse Resp B/P (MAP) Pulse Ox O2 Delivery O2 Flow Rate FiO2 01/07/18 15:38 36.4 78 20 129/70 (89) 100 Nasal Cannula 3.0 Physical Exam Constitutional: Level of Distress: chronically ill Cardiovascular: Heart Auscultation: RRR, no murmurs Extremities: no edema Neurologic: Gait & Station: pertinent finding (No focal deficits) Assessment and Plan Assessment and Plan Impression: Orthostatic History of atrial arrhythmias, 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 Hold torsemide perhaps he is volume depleted. Dr. Laird will assume rounding for our service tomorrow, please call with questions or concerns. At some point, diuretic may need to be reintroduced, however per review of his home medication list, he was on a chronic diuretic therapy prior to this hospital stay. Laboratory Results Last 24 Hours Test 01/06/18 16:40 01/06/18 20:49 01/07/18 01:54 01/07/18 06:37 Bedside Glucose 163 mg/dl 311 mg/dl 137 mg/dl White Blood Count 9.31 K/uL Red Blood Count 3.87 M/uL Hemoglobin 11.6 g/dL Hematocrit 36.1 % Mean Corpuscular Volume 93.3 fL Mean Corpuscular Hemoglobin 30.0 pg Mean Corpuscular Hemoglobin Concent 32.1 g/dl Platelet Count 81 K/uL Mean Platelet Volume 9.3 fL Neutrophils (%) (Auto) 75.8 % Lymphocytes (%) (Auto) 13.5 % Monocytes (%) (Auto) 4.7 % Eosinophils (%) (Auto) 5.6 % Basophils (%) (Auto) 0.0 % Neutrophils # (Auto) 7.05 K/uL Lymphocytes # (Auto) 1.26 K/uL Monocytes # (Auto) 0.44 K/uL Eosinophils # (Auto) 0.52 K/uL Basophils # (Auto) 0.00 K/uL RDW Standard Deviation 52.6 fL RDW Coefficient of Variation 15.3 % Immature Granulocyte % (Auto) 0.4 % Immature Granulocyte # (Auto) 0.04 K/uL Prothrombin Time 16.9 SECONDS Prothromb Time International Ratio 1.6 Sodium Level 138 mmol/L Potassium Level 4.3 mmol/L Chloride Level 101 mmol/L Carbon Dioxide Level 29 mmol/L Anion Gap 8.0 mmol/L Blood Urea Nitrogen 43 mg/dl Creatinine 2.00 mg/dl Est Creatinine Clear Calc Drug Dose 28.5 ml/min Estimated GFR () 34.0 Estimated GFR (Non- 29.3 BUN/Creatinine Ratio 21.7 Random Glucose 157 mg/dl Calcium Level 7.8 mg/dl Magnesium Level 2.3 mg/dl Test 01/07/18 07:54 01/07/18 11:56 Bedside Glucose 174 mg/dl 233 mg/dl
--- NOTE | 2018-01-07 19:12 | Progress Note ---
Internal Med Progress Note Date of Service: Jan 07, 2018. Provider Documentation: SUBJECTIVE: still orthostatics on standing sob is getting better cough is better afebrile denies chest pain no nausea eating fine OBJECTIVE: Vital Signs-as noted below Exam: General-alert and oriented. ENT-Normal hearing Neck-no neck masses Lungs-cta b/l no wheezing no crackles present Heart-S1 and S2 heard regular rate and rhythm no murmurs Abdomen-Soft bowel sounds present non tender no distension Extremities-no edema no erythema Neuro-alert and awake moves extremities non focal Lab data as noted below. ASSESSMENT & PLAN: ACUTE HYPOXEMIC RESPIRATORY FAILURE- Presented with SOB /cough for 1 week and noted to have spo2 86 in RA , improved with supplemental 02 Secondary to pneumonia FLU was positive but was not treated as he had symptoms > 1 week later developed pneumonia sputum cx growing MSSa was transferred to ICU as repeat ct chest showed worsening infiltration amiodarone was stopped for possible amiodarone toxicity received Lasix for fluid overload Appreciate pulmonary and critical care inputs received broad spectrum abx currently on Zyvox to complete 10 day course on doxycycline and to stop it if negative for atypicals on voriconazole - awaiting fungal studies no plan for bronchoscopy or ct scan as risks out weights benefits as per critical care consulted ID for further recommendations on abx improving slowly voriconazole stopped BILATERAL MULTILOBAR PNEUMONIA pneumonia in setting FLU Started on IV Zosyn ( for pseudomonal coverage in setting of Type 2 DM / hyperglycemia ) Blood CULTURE-NEGATIVE and sputum culture :Staph Aureus.MSSA Received Vancomycin ,Changed to Ceftriaxone and Doxycycline Received Solumedrol and Prednisone-discontinued on 01/02/18 Pulmonary consulted-appreciate input currently on abx as above improving 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 Amiodarone stopped Cardiology is on board Orthostatic hypotension presyncope Flomax dose cut back to once daily by cardiology torsemide stopped will monitor HYPERGLYCEMIA WITH TYPE 2 DM On Lantus 22 U HS Started on IV insulin protocol currently on Lantus and iss Pharmacy consulted for glycemic management Hb A1c 9.8 on 09/2017 Hb A1c 10.4 now close monitor [place]SA[place] ON CKD STAGE 3 due to above received fluids currently on torsemide cr 2.00 today continue to monitor HYPONATREMIA : Due to hyperglycemia received fluids follow PRP -normalized HX OF A FLUTTER : Rate and rhythm controlled amiodarone stopped INR 1.6 today restarted Coumadin 1mg daily f/u inr FULL CODE DISPOSITION ; monitor in tele PT/OT Medicine follow up with Dr Ward Prognosis is guarded to be determined Vital Signs: Date Time Temp Pulse Resp B/P (MAP) Pulse Ox O2 Delivery O2 Flow Rate FiO2 01/07/18 16:00 98 Nasal Cannula 3.0 01/07/18 16:00 79 18 98 Nasal Cannula 3.0 01/07/18 15:38 36.4 78 20 129/70 (89) 100 Nasal Cannula 3.0 01/07/18 12:07 81 20 97 Nasal Cannula 3.0 01/07/18 12:00 Nasal Cannula 3.0 01/07/18 11:41 36.5 78 19 138/76 (96) 99 Nebulizer 01/07/18 08:00 Nasal Cannula 3.0 01/07/18 07:40 36.7 77 19 149/72 (97) 93 Nasal Cannula 2.0 01/07/18 07:13 81 20 97 Nasal Cannula 3.0 01/07/18 05:28 36.6 74 20 131/65 (87) 98 Nasal Cannula 2.0 01/07/18 04:00 Nasal Cannula 3.0 01/07/18 00:21 36.6 75 18 122/66 (84) 95 Nasal Cannula 2.0 01/07/18 00:00 Nasal Cannula 3.0 01/06/18 21:12 36.8 85 18 137/68 (91) 96 Nasal Cannula 3.0 01/06/18 20:00 Nasal Cannula 3.0 01/06/18 19:48 77 20 98 Nasal Cannula 3.0 Lab Results: Results Past 24 Hours Test 01/06/18 20:49 01/07/18 01:54 01/07/18 06:37 01/07/18 07:54 Range/Units Bedside Glucose 311 137 174 70-99 mg/dl White Blood Count 9.31 4.8-10.8 K/uL Red Blood Count 3.87 4.7-6.1 M/uL Hemoglobin 11.6 14.0-18.0 g/dL Hematocrit 36.1 42-52 % Mean Corpuscular Volume 93.3 80-100 fL Mean Corpuscular Hemoglobin 30.0 25-34 pg Mean Corpuscular Hemoglobin Concent 32.1 32-36 g/dl Platelet Count 81 130-400 K/uL Mean Platelet Volume 9.3 7.4-10.4 fL Neutrophils (%) (Auto) 75.8 % Lymphocytes (%) (Auto) 13.5 % Monocytes (%) (Auto) 4.7 % Eosinophils (%) (Auto) 5.6 % Basophils (%) (Auto) 0.0 % Neutrophils # (Auto) 7.05 1.4-6.5 K/uL Lymphocytes # (Auto) 1.26 1.2-3.4 K/uL Monocytes # (Auto) 0.44 0.11-0.59 K/uL Eosinophils # (Auto) 0.52 0-0.5 K/uL Basophils # (Auto) 0.00 0-0.2 K/uL RDW Standard Deviation 52.6 36.4-46.3 fL RDW Coefficient of Variation 15.3 11.5-14.5 % Immature Granulocyte % (Auto) 0.4 % Immature Granulocyte # (Auto) 0.04 0.00-0.02 K/uL Prothrombin Time 16.9 9.0-12.0 SECONDS Prothromb Time International Ratio 1.6 0.9-1.1 Sodium Level 138 136-145 mmol/L Potassium Level 4.3 3.5-5.1 mmol/L Chloride Level 101 98-107 mmol/L Carbon Dioxide Level 29 21-32 mmol/L Anion Gap 8.0 3-11 mmol/L Blood Urea Nitrogen 43 7-18 mg/dl Creatinine 2.00 0.60-1.40 mg/dl Est Creatinine Clear Calc Drug Dose 28.5 ml/min Estimated GFR () 34.0 Estimated GFR (Non- 29.3 BUN/Creatinine Ratio 21.7 10-20 Random Glucose 157 70-99 mg/dl Calcium Level 7.8 8.5-10.1 mg/dl Magnesium Level 2.3 1.8-2.4 mg/dl Test 01/07/18 11:56 01/07/18 17:01 Range/Units Bedside Glucose 233 239 70-99 mg/dl
[2018-01-07] MEDS: TAMSULOSIN HCL 0.4 MG CAP PO SCH (20:32)
[2018-01-08] VITALS (12 sets, daily range): BP systolic 83–154; BP diastolic 39–70; PULSE 76–98; TEMP 36.4–36.8; O2SAT 89–99
[2018-01-08 06:05] LABS: HEMATOCRIT 37.7 % (42-52); HEMOGLOBIN 12.3 g/dL (14.0-18.0); MEAN CELL VOLUME 92.4 fL (80-100); MEAN CORPUSCULAR HEMOGLOBIN 30.1 pg (25-34); MEAN CORPUSCULAR HGB CONC 32.6 g/dl (32-36); RED CELL DISTRIBUTION WIDTH CV 15.3 % (11.5-14.5); RED CELL DISTRIBUTION WIDTH SD 51.3 fL (36.4-46.3); WHITE BLOOD COUNT 9.47 K/uL (4.8-10.8)
[2018-01-08 06:12] LABS: MEAN PLATELET VOLUME 9.1 fL (7.4-10.4); PLATELET COUNT 70 K/uL (130-400)
[2018-01-08 06:14] LABS: INR 1.6 (0.9-1.1)
[2018-01-08 06:26] LABS: CALCIUM 7.7 mg/dl (8.5-10.1); CREATININE 2.08 mg/dl (0.60-1.40); POTASSIUM 4.1 mmol/L (3.5-5.1)
[2018-01-08 06:35] LABS: BASO % 0.1 %; BASO ABS # 0.01 K/uL (0-0.2); EOS % 5.6 %; EOS ABS # 0.53 K/uL (0-0.5); IG# 0.02 K/uL (0.00-0.02); LYMPH % 13.6 %; LYMPH ABS # 1.29 K/uL (1.2-3.4); MONO % 4.1 %; MONO ABS # 0.39 K/uL (0.11-0.59); NEUT % 76.4 %; NEUT ABS # 7.23 K/uL (1.4-6.5)
[2018-01-08] MEDS: IPRATROPIUM BROMIDE NEB SOLN 0.02% 2.5 ML VIAL INH SCH ×4 (07:01→19:38)
[2018-01-08] MEDS: LEVALBUTEROL 1.25MG/0.5ML NEB INH SCH ×4 (07:01→19:37)
[2018-01-08] MEDS: LINEZOLID 600 MG TAB PO SCH (08:04)
[2018-01-08] MEDS: FINASTERIDE 5 MG TAB PO SCH (08:04)
[2018-01-08] MEDS: DOXYCYCLINE HYCLATE 100 MG CAP PO SCH ×2 (08:05→21:13)
[2018-01-08] MEDS: CHOLECALCIFEROL 1000 INTER.UNIT TAB PO SCH (08:05)
[2018-01-08] MEDS: MAGNESIUM CHLORIDE 64MG DELAYED REL TAB PO SCH (08:05)
[2018-01-08] MEDS: POTASSIUM CHLORIDE 10 MEQ TABCR PO SCH (08:05)
[2018-01-08] MEDS: GUAIFENESIN 600 MG TABCR PO SCH ×2 (08:06→21:13)
[2018-01-08] MEDS: PANTOprazole SOD 40 MG TAB PO SCH (08:06)
[2018-01-08] MEDS: INSULIN GLARGINE SOLOSTAR 100 UNITS/ML 3 ML PEN SC SCH (08:12)
[2018-01-08] MEDS: INSULIN ASPART 100 UNITS/ML 3 ML PEN SC SCH ×4 (08:13→21:15)
--- NOTE | 2018-01-08 10:17 | Pharmacy Progress Note ---
Glycemic Control Progress Note Date of Service Jan 08, 2018. Scope Glycemic Pharmacist consulted for glycemic control to write orders per [facility] inpatient glycemic control protocol. Objective Accuchecks BSG (last 24hrs): Test 01/07/18 11:56 01/07/18 17:01 01/07/18 20:00 01/08/18 05:40 Bedside Glucose 233 mg/dl (70-99) 239 mg/dl (70-99) 297 mg/dl (70-99) Random Glucose 99 mg/dl (70-99) Test 01/08/18 07:34 Bedside Glucose 105 mg/dl (70-99) Recent Pertinent Medications The patient is currently receiving: * Basal insulin: Lantus 22 units every 24 hours * Bolus insulin (breakfast) * NovoLog per scale ACHS or Q6hrs while NPO * Goal Range: Low 120 mg/dL - High 160 mg/dL * Correction Factor: 15 mg/dL/unit * Nutritional / Prandial insulin per carb ratio of 1 unit per 6 grams CHO consumed * Bolus insulin (lunch, dinner, HS) * NovoLog per scale ACHS or Q6hrs while NPO * Goal Range: Low 140 mg/dL - High 180 mg/dL * Correction Factor: 30 mg/dL/unit * Nutritional / Prandial insulin per carb ratio of 1 unit per 20 grams CHO consumed Outpatient Anti-Diabetic Meds Basal Insulin Assessment & Plan ASSESSMENT: 01/07/18 * 87 yo M admitted on 12/15/16 for acute respiratory failure. Flu positive - no antiviral treatment. Also with superimposed MSSA PNA - has completed 14 day course per ID. * HbA1c 10.4% - outpatient control inadequate * Patient continues to have significant fluctuation in BSG's, but no hypoglycemia on 01/06 which is an improvement * No Novolog provided at lunch and dinner yesterday caused elevated BSG to 311 mg/dL at HS * Will add back Novolog for lunch, dinner, HS * But will have a very loose carb ratio (mainly to ensure CHO at meals counted to determine if intake contributes to BSG fluctuations) * OK to add back correctional as this will only be administered for BSG greater than 180 mg/dL 01/08/18 * Changes to stressors - none * BSG's ranging 105-297 mg/dL over the last 24 hours * AM fasting at 105 mg/dL (has been 130-174-105 mg/dL x3 days). No clear downward trend therefore OK to leave Lantus at current dose * Post-prandial hyperglycemia noted * Hesitant to tighten CHO ratio too much as this caused significant hypoglycemia on 01/05. Will therefore tighten, but will be significantly looser than previous. * Will also decrease goal range (which will provide slightly more correctional insulin for most BSG's above 160 mg/dL) PLAN FOR INPATIENT GLYCEMIC CONTROL: * Basal insulin * Lantus 22 units SQ qAM * Bolus insulin (breakfast) * NovoLog per scale ACHS or Q6hrs while NPO * Goal Range: Low 120 mg/dL - High 160 mg/dL * Correction Factor: 15 mg/dL/unit * Nutritional / Prandial insulin per carb ratio of 1 unit per 6 grams CHO consumed * Bolus insulin (lunch, dinner, HS) * NovoLog per scale ACHS or Q6hrs while NPO * Decrease Goal Range: Low 120 mg/dL - High 160 mg/dL * Correction Factor: 30 mg/dL/unit * Tighten Nutritional / Prandial insulin per carb ratio of 1 unit per 13 grams CHO consumed * Please note that the plan above was derived based on current level of insulin resistance and hospital stress. These recommendations are appropriate for inpatient admission only. Plan of care upon discharge will need to be reassessed to avoid potential outpatient hypo/hyperglycemia. Thank you.
--- NOTE | 2018-01-08 16:59 | Progress Note ---
Internal Med Progress Note Date of Service: Jan 08, 2018. Provider Documentation: SUBJECTIVE: still has some orthostatics on standing says sob is ok did not coughed today afebrile no chest pain no complaints OBJECTIVE: Vital Signs-as noted below Exam: General-alert and oriented. ENT-Normal hearing Neck-no neck masses Lungs-cta b/l no wheezing no crackles present Heart-S1 and S2 heard regular rate and rhythm no murmurs Abdomen-Soft bowel sounds present non tender no distension Extremities-no edema no erythema Neuro-alert and awake moves extremities non focal Lab data as noted below. ASSESSMENT & PLAN: ACUTE HYPOXEMIC RESPIRATORY FAILURE- Presented with SOB /cough for 1 week and noted to have spo2 86 in RA , improved with supplemental 02 Secondary to pneumonia FLU was positive but was not treated as he had symptoms > 1 week later developed pneumonia sputum cx growing MSSa was transferred to ICU as repeat ct chest showed worsening infiltration amiodarone was stopped for possible amiodarone toxicity received Lasix for fluid overload Appreciate pulmonary and critical care inputs received broad spectrum abx currently on Zyvox to complete 10 day course on doxycycline to complete 7 day course on voriconazole - stopped by pulmonary consulted ID for further recommendations on abx improving slowly pt/ot BILATERAL MULTILOBAR PNEUMONIA pneumonia in setting FLU Started on IV Zosyn ( for pseudomonal coverage in setting of Type 2 DM / hyperglycemia ) Blood CULTURE-NEGATIVE and sputum culture :Staph Aureus.MSSA Received Vancomycin ,Changed to Ceftriaxone and Doxycycline Received Solumedrol and Prednisone-discontinued on 01/02/18 Pulmonary consulted-appreciate input currently on abx as above improving pt/ot 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 Amiodarone stopped Cardiology is on board Orthostatic hypotension presyncope Flomax dose cut back to once daily by cardiology torsemide stopped continue to monitor HYPERGLYCEMIA WITH TYPE 2 DM On Lantus 22 U HS Started on IV insulin protocol currently on Lantus and iss Pharmacy consulted for glycemic management Hb A1c 9.8 on 09/2017 Hb A1c 10.4 now close monitor OKSANA ON CKD STAGE 3 due to above received fluids held torsemide cr 2.00 today continue to monitor HYPONATREMIA : Due to hyperglycemia received fluids follow PRP -normalized HX OF A FLUTTER : Rate and rhythm controlled amiodarone stopped INR 1.6 today restarted Coumadin 1mg daily f/u inr FULL CODE DISPOSITION ; monitor in tele PT/OT Medicine follow up with Dr Ward Prognosis is guarded to be determined Vital Signs: Date Time Temp Pulse Resp B/P (MAP) Pulse Ox O2 Delivery O2 Flow Rate FiO2 01/08/18 15:16 36.8 79 20 154/69 (97) 97 2.0 01/08/18 14:46 76 18 97 Nasal Cannula 2.0 01/08/18 13:58 84 114/64 (81) 88 83/39 (54) 01/08/18 13:38 89 Room Air 01/08/18 13:38 94 Nasal Cannula 1.0 01/08/18 12:10 36.8 79 20 123/65 (84) 98 Nasal Cannula 1.0 01/08/18 12:00 Nasal Cannula 1.0 01/08/18 11:39 78 18 99 Nasal Cannula 2.0 01/08/18 08:07 36.6 98 18 129/64 (85) 98 Nasal Cannula 1.0 01/08/18 08:00 Nasal Cannula 1.0 01/08/18 07:02 78 18 97 Nasal Cannula 2.0 01/08/18 05:02 36.4 79 18 131/68 (89) 96 Nasal Cannula 1.0 01/08/18 04:00 Nasal Cannula 1.0 01/08/18 00:00 Nasal Cannula 1.0 01/07/18 23:31 36.9 83 18 121/60 (80) 95 Nasal Cannula 1.0 01/07/18 20:00 Nasal Cannula 2.0 01/07/18 19:58 36.6 80 18 128/68 (88) 97 Nasal Cannula 1.0 01/07/18 19:25 86 18 94 Nasal Cannula 2.0 Lab Results: Results Past 24 Hours Test 01/07/18 17:01 01/07/18 20:00 01/08/18 05:40 01/08/18 07:34 Range/Units Bedside Glucose 239 297 105 70-99 mg/dl White Blood Count 9.47 4.8-10.8 K/uL Red Blood Count 4.08 4.7-6.1 M/uL Hemoglobin 12.3 14.0-18.0 g/dL Hematocrit 37.7 42-52 % Mean Corpuscular Volume 92.4 80-100 fL Mean Corpuscular Hemoglobin 30.1 25-34 pg Mean Corpuscular Hemoglobin Concent 32.6 32-36 g/dl Platelet Count 70 130-400 K/uL Mean Platelet Volume 9.1 7.4-10.4 fL Neutrophils (%) (Auto) 76.4 % Lymphocytes (%) (Auto) 13.6 % Monocytes (%) (Auto) 4.1 % Eosinophils (%) (Auto) 5.6 % Basophils (%) (Auto) 0.1 % Neutrophils # (Auto) 7.23 1.4-6.5 K/uL Lymphocytes # (Auto) 1.29 1.2-3.4 K/uL Monocytes # (Auto) 0.39 0.11-0.59 K/uL Eosinophils # (Auto) 0.53 0-0.5 K/uL Basophils # (Auto) 0.01 0-0.2 K/uL RDW Standard Deviation 51.3 36.4-46.3 fL RDW Coefficient of Variation 15.3 11.5-14.5 % Immature Granulocyte % (Auto) 0.2 % Immature Granulocyte # (Auto) 0.02 0.00-0.02 K/uL Red Blood Cell Morphology Unremarkable Prothrombin Time 16.8 9.0-12.0 SECONDS Prothromb Time International Ratio 1.6 0.9-1.1 Sodium Level 138 136-145 mmol/L Potassium Level 4.1 3.5-5.1 mmol/L Chloride Level 101 98-107 mmol/L Carbon Dioxide Level 30 21-32 mmol/L Anion Gap 7.0 3-11 mmol/L Blood Urea Nitrogen 47 7-18 mg/dl Creatinine 2.08 0.60-1.40 mg/dl Est Creatinine Clear Calc Drug Dose 27.4 ml/min Estimated GFR () 32.4 Estimated GFR (Non- 28.0 BUN/Creatinine Ratio 22.8 10-20 Random Glucose 99 70-99 mg/dl Calcium Level 7.7 8.5-10.1 mg/dl Magnesium Level 2.2 1.8-2.4 mg/dl Test 01/08/18 11:45 01/08/18 16:42 Range/Units Bedside Glucose 134 95 70-99 mg/dl
[2018-01-08] MEDS: WARFARIN SOD 2 MG TAB PO SCH (17:04)
[2018-01-08] MEDS: TAMSULOSIN HCL 0.4 MG CAP PO SCH (21:13)
[2018-01-09] VITALS (7 sets, daily range): BP systolic 119–146; BP diastolic 60–71; PULSE 67–83; TEMP 36.4–36.6; O2SAT 92–100
[2018-01-09 06:28] LABS: INR 1.6 (0.9-1.1)
[2018-01-09] MEDS: IPRATROPIUM BROMIDE NEB SOLN 0.02% 2.5 ML VIAL INH SCH ×4 (07:18→20:00)
[2018-01-09] MEDS: LEVALBUTEROL 1.25MG/0.5ML NEB INH SCH ×4 (07:18→20:00)
[2018-01-09] MEDS: DOXYCYCLINE HYCLATE 100 MG CAP PO SCH ×2 (07:31→20:22)
[2018-01-09] MEDS: GUAIFENESIN 600 MG TABCR PO SCH ×2 (07:32→20:21)
[2018-01-09] MEDS: POTASSIUM CHLORIDE 10 MEQ TABCR PO SCH (07:32)
[2018-01-09] MEDS: PANTOprazole SOD 40 MG TAB PO SCH (07:32)
[2018-01-09] MEDS: CHOLECALCIFEROL 1000 INTER.UNIT TAB PO SCH (07:32)
[2018-01-09] MEDS: FINASTERIDE 5 MG TAB PO SCH (07:32)
[2018-01-09] MEDS: MAGNESIUM CHLORIDE 64MG DELAYED REL TAB PO SCH (07:32)
[2018-01-09] MEDS: INSULIN GLARGINE SOLOSTAR 100 UNITS/ML 3 ML PEN SC SCH (08:35)
[2018-01-09] MEDS: INSULIN ASPART 100 UNITS/ML 3 ML PEN SC SCH ×4 (08:36→20:24)
[2018-01-09] MEDS: WARFARIN SOD 2 MG TAB PO SCH (16:05)
--- NOTE | 2018-01-09 16:39 | Progress Note ---
Internal Med Progress Note Date of Service: Jan 09, 2018. Provider Documentation: SUBJECTIVE: feeling depressed today as he is still the same and not getting better sob is same weak afebrile hemodynamics stable family in room OBJECTIVE: Vital Signs-as noted below Exam: General-alert and oriented. ENT-Normal hearing Neck-no neck masses Lungs-cta b/l no wheezing no crackles present Heart-S1 and S2 heard regular rate and rhythm no murmurs Abdomen-Soft bowel sounds present non tender no distension Extremities-no edema no erythema Neuro-alert and awake moves extremities non focal Lab data as noted below. ASSESSMENT & PLAN: ACUTE HYPOXEMIC RESPIRATORY FAILURE- Presented with SOB /cough for 1 week and noted to have spo2 86 in RA , improved with supplemental 02 Secondary to pneumonia FLU was positive but was not treated as he had symptoms > 1 week later developed pneumonia sputum cx growing MSSA was transferred to ICU as repeat ct chest showed worsening infiltration amiodarone was stopped for possible amiodarone toxicity received Lasix for fluid overload Appreciate pulmonary and critical care inputs received broad spectrum abx on doxycycline to complete 7 day course on voriconazole - stopped by pulmonary consulted ID for further recommendations on abx improving slowly pt/ot BILATERAL MULTILOBAR PNEUMONIA pneumonia in setting FLU Started on IV Zosyn ( for pseudomonal coverage in setting of Type 2 DM / hyperglycemia ) Blood CULTURE-NEGATIVE and sputum culture :Staph Aureus.MSSA Received Vancomycin ,Changed to Ceftriaxone and Doxycycline Received Solumedrol and Prednisone-discontinued on 01/02/18 Pulmonary consulted-appreciate input currently on abx as above slowly improving pt/ot 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 Amiodarone stopped Cardiology is on board Orthostatic hypotension presyncope Flomax dose cut back to once daily by cardiology torsemide stopped continue to monitor f/u in am HYPERGLYCEMIA WITH TYPE 2 DM On Lantus 22 U HS Started on IV insulin protocol currently on Lantus and iss Pharmacy consulted for glycemic management Hb A1c 9.8 on 09/2017 Hb A1c 10.4 now 150/140/108/137 close monitor OKSANA ON CKD STAGE 3 due to above received fluids held torsemide cr 2.00 today continue to monitor HYPONATREMIA : Due to hyperglycemia received fluids follow PRP -normalized Thrombocytopenia Zyvox induced? which is stopped jow f/u labs HX OF A FLUTTER : Rate and rhythm controlled amiodarone stopped INR 1.6 today restarted Coumadin increased to 2mg daily f/u inr FULL CODE DISPOSITION ; monitor in tele PT/OT Medicine follow up with Dr Ward Prognosis is guarded to be determined Vital Signs: Date Time Temp Pulse Resp B/P (MAP) Pulse Ox O2 Delivery O2 Flow Rate FiO2 01/09/18 16:00 Nasal Cannula 1.0 01/09/18 15:13 36.6 83 18 127/67 (87) 99 Nasal Cannula 2.0 01/09/18 14:38 76 18 98 Nasal Cannula 2.0 01/09/18 12:00 Nasal Cannula 1.0 01/09/18 11:40 36.4 80 18 121/62 (81) 100 Nasal Cannula 2.0 01/09/18 11:04 67 18 92 Nasal Cannula 2.0 01/09/18 08:00 Nasal Cannula 1.0 01/09/18 07:20 74 18 96 Nasal Cannula 2.0 01/09/18 07:20 36.6 71 20 142/71 (94) 98 2.0 01/09/18 04:00 Nasal Cannula 1.0 01/09/18 03:30 36.6 75 18 119/60 (79) 97 Nasal Cannula 2.0 01/09/18 00:00 Nasal Cannula 1.0 01/08/18 23:13 36.5 81 20 150/69 (96) 98 Nasal Cannula 2.0 01/08/18 20:00 Nasal Cannula 2.0 01/08/18 19:38 82 18 97 Nasal Cannula 2.0 01/08/18 19:07 36.6 79 20 150/70 (96) 98 Room Air Lab Results: Results Past 24 Hours Test 01/08/18 16:42 01/08/18 19:35 01/08/18 21:07 01/09/18 05:48 Range/Units Bedside Glucose 95 150 140 70-99 mg/dl Prothrombin Time 17.1 9.0-12.0 SECONDS Prothromb Time International Ratio 1.6 0.9-1.1 Test 01/09/18 07:42 01/09/18 11:51 Range/Units Bedside Glucose 108 137 70-99 mg/dl
[2018-01-09] MEDS: TAMSULOSIN HCL 0.4 MG CAP PO SCH (20:22)
[2018-01-10] VITALS (11 sets, daily range): BP systolic 92–159; BP diastolic 43–76; PULSE 70–89; TEMP 36.3–36.9; O2SAT 96–98
[2018-01-10 06:23] LABS: INR 2.2 (0.9-1.1)
[2018-01-10 06:45] LABS: HEMATOCRIT 36.7 % (42-52); HEMOGLOBIN 11.8 g/dL (14.0-18.0); MEAN CELL VOLUME 92.9 fL (80-100); MEAN CORPUSCULAR HEMOGLOBIN 29.9 pg (25-34); MEAN CORPUSCULAR HGB CONC 32.2 g/dl (32-36); RED CELL DISTRIBUTION WIDTH SD 51.1 fL (36.4-46.3); WHITE BLOOD COUNT 7.76 K/uL (4.8-10.8)
[2018-01-10 06:53] LABS: MEAN PLATELET VOLUME 9.7 fL (7.4-10.4); PLATELET COUNT 67 K/uL (130-400)
[2018-01-10] MEDS: LEVALBUTEROL 1.25MG/0.5ML NEB INH SCH (07:03)
[2018-01-10] MEDS: IPRATROPIUM BROMIDE NEB SOLN 0.02% 2.5 ML VIAL INH SCH (07:03)
[2018-01-10 07:04] LABS: CREATININE 1.64 mg/dl (0.60-1.40); POTASSIUM 4.6 mmol/L (3.5-5.1)
[2018-01-10 07:09] LABS: BASO % 0.1 %; BASO ABS # 0.01 K/uL (0-0.2); EOS ABS # 0.54 K/uL (0-0.5); IG# 0.04 K/uL (0.00-0.02); LYMPH % 14.4 %; LYMPH ABS # 1.12 K/uL (1.2-3.4); MONO % 5.5 %; MONO ABS # 0.43 K/uL (0.11-0.59); NEUT % 72.5 %; NEUT ABS # 5.62 K/uL (1.4-6.5)
[2018-01-10] MEDS: INSULIN GLARGINE SOLOSTAR 100 UNITS/ML 3 ML PEN SC SCH (07:56)
[2018-01-10] MEDS: INSULIN ASPART 100 UNITS/ML 3 ML PEN SC SCH ×4 (07:57→20:58)
[2018-01-10] MEDS: GUAIFENESIN 600 MG TABCR PO SCH ×2 (07:58→21:00)
[2018-01-10] MEDS: FINASTERIDE 5 MG TAB PO SCH (07:58)
[2018-01-10] MEDS: PANTOprazole SOD 40 MG TAB PO SCH (07:58)
[2018-01-10] MEDS: MAGNESIUM CHLORIDE 64MG DELAYED REL TAB PO SCH (07:59)
[2018-01-10] MEDS: DOXYCYCLINE HYCLATE 100 MG CAP PO SCH ×2 (07:59→21:00)
[2018-01-10] MEDS: POTASSIUM CHLORIDE 10 MEQ TABCR PO SCH (07:59)
[2018-01-10] MEDS: CHOLECALCIFEROL 1000 INTER.UNIT TAB PO SCH (07:59)
--- NOTE | 2018-01-10 09:31 | Pharmacy Progress Note ---
Pharmacy Glycemic Short Note 2 Date of Service Jan 10, 2018. OUTPATIENT ANTIDIABETIC REGIMEN: * Lantus 22 units SQ daily at dinner * HbA1c: 10.4% (12/15/17) ASSESSMENT: 01/10/18 * Mr. Burgess received 31 units of insulin yesterday * BSGs ranging from 117-207 mg/dL * SCr has improved so I suspect this is why BSGs were somewhat more elevated yesterday * No other changes to causes of insulin resistance * AM fasting = 117: no change to basal insulin * Postprandial BSGs = 137, 198, 207: will tighten goal range back to 120-160 for all meals 01/08/18 * Changes to stressors - none * BSG's ranging 105-297 mg/dL over the last 24 hours * AM fasting at 105 mg/dL (has been 130-174-105 mg/dL x3 days). No clear downward trend therefore OK to leave Lantus at current dose * Post-prandial hyperglycemia noted * Hesitant to tighten CHO ratio too much as this caused significant hypoglycemia on 01/05. Will therefore tighten, but will be significantly looser than previous. * Will also decrease goal range (which will provide slightly more correctional insulin for most BSG's above 160 mg/dL) PLAN FOR INPATIENT GLYCEMIC CONTROL: * Basal insulin - no change * Lantus 22 units SQ once daily * Bolus insulin * Novolog ACHS * Correction Factor: 15 mg/dL/unit with breakfast, 30 mg/dL/unit with lunch, dinner and HS * Carbohydrate ratio of 1 unit per 6 grams of carbs consumed with breakfast, 1 unit per 13 with lunch, dinner and HS * TIGHTEN Goal range: 120-160 mg/dL for all Novolog times
[2018-01-10] MEDS ORDERED: IPRATROPIUM BROMIDE NEB SOLN 0.02% 2.5 ML VIAL INH PRN (10:30)
[2018-01-10] MEDS ORDERED: LEVALBUTEROL 1.25MG/0.5ML NEB INH PRN (10:30)
[2018-01-10] MEDS ORDERED: SODIUM CHLORIDE 0.9% 1000ML 1,000 ML IV SCH (15:15)
--- NOTE | 2018-01-10 15:35 | Cardiology Follow-Up ---
Subjective General Date of Service: Jan 10, 2018. Chief Complaint: Follow-up lightheadedness Pt evaluation today including: conversation w/ patient, conversation w/ family , physical exam, chart review, lab review, review of studies, conversation w/ senior [employer] consultant, review of inpatient medication list History of Present Illness The patient is a 87 year old male seen in follow-up. This is my first encounter with the patient. Chart reviewed. Patient admitted with influenza and pneumonia. Treated with intravenous fluid and subsequently became volume overloaded. Amiodarone discontinued during hospitalization due to potential lung toxicity. Diuretic therapy discontinued late last week due to orthostatic hypotension. Today the patient complains of posterior cervical discomfort. Requesting muscle relaxant as possible. Notes fatigue and dyspnea on exertion. Diffuse weakness reported. No orthopnea paroxysmal nocturnal dyspnea. Denies palpitations, lightheadedness, dizziness, syncope, or near syncope. Remains in sinus rhythm on telemetry. INR is therapeutic today. Allergies Coded Allergies: No Known Allergies (Unverified , 05/19/13) Social History Smoking Status: Former Smoker Hx Tobacco Use In Past Year?: No Hx Alcohol Use - Type And Amou: Yes (about 1 beer per month) Hx Substance Use - Type And Am: No Problem List Medical Problems: (1) Hyperglycemia Status: Acute (2) Hypoxia Status: Acute (3) Renal insufficiency Status: Acute Review of Systems Respiratory: + cough, + dyspnea on exertion, No sputum, No wheezing, No shortness of breath, No dyspnea at rest, No hemoptysis Cardiac: No chest pain, No orthopnea, No PND, No edema, No claudication, No palpitations Physical Exam Vital Signs Last Vital Signs Documentation Date Time Temp Pulse Resp B/P (MAP) Pulse Ox O2 Delivery O2 Flow Rate FiO2 01/10/18 12:00 Nasal Cannula 1.0 01/10/18 11:23 36.8 74 16 122/65 (36) 98 Physical Exam Constitutional: Level of Distress: NAD, chronically ill Ambulation: ambulating normally Head: normocephalic, atraumatic Neck: supple, trachea midline Lungs: Auscultation: breath sounds normal, no wheezing, no rales/crackles, no rhonchi Cardiovascular: Heart Auscultation: RRR, no murmurs Abdomen: Bowel Sounds: normal Inspection & Palpation: soft, non-distended, no tenderness, guarding & rebound Musculoskeletal: normal, normal strength (5/5 throughout) Extremities: no edema Neurologic: Gait & Station: pertinent finding (No focal deficits) Cranial Nerves: grossly intact Assessment and Plan Assessment and Plan Impression: 1. Orthostatic hypotension 2. History of atrial dysrhythmias and tachycardia induced cardiomyopathy -Normal LVEF and RVEF per erpeat echo this admission 3. Admission for acute hypoxemic respiratory failure due to influenza, superimposed pneumonia 4. DVT Recommendations: Gentle IV hydration. Continue flomax once daily. Consider addition of low dose fludrocortisone in future. Management of chronic neck discomfort as per internal medicine - consider dose of Flexeril at bedtime. Laboratory Results Last 24 Hours Test 01/09/18 16:43 01/09/18 20:10 01/10/18 05:34 01/10/18 06:36 Bedside Glucose 198 mg/dl 207 mg/dl Prothrombin Time 22.8 SECONDS Prothromb Time International Ratio 2.2 White Blood Count 7.76 K/uL Red Blood Count 3.95 M/uL Hemoglobin 11.8 g/dL Hematocrit 36.7 % Mean Corpuscular Volume 92.9 fL Mean Corpuscular Hemoglobin 29.9 pg Mean Corpuscular Hemoglobin Concent 32.2 g/dl Platelet Count 67 K/uL Mean Platelet Volume 9.7 fL Neutrophils (%) (Auto) 72.5 % Lymphocytes (%) (Auto) 14.4 % Monocytes (%) (Auto) 5.5 % Eosinophils (%) (Auto) 7.0 % Basophils (%) (Auto) 0.1 % Neutrophils # (Auto) 5.62 K/uL Lymphocytes # (Auto) 1.12 K/uL Monocytes # (Auto) 0.43 K/uL Eosinophils # (Auto) 0.54 K/uL Basophils # (Auto) 0.01 K/uL RDW Standard Deviation 51.1 fL RDW Coefficient of Variation 15.0 % Immature Granulocyte % (Auto) 0.5 % Immature Granulocyte # (Auto) 0.04 K/uL Sodium Level 138 mmol/L Potassium Level 4.6 mmol/L Chloride Level 104 mmol/L Carbon Dioxide Level 28 mmol/L Anion Gap 6.0 mmol/L Blood Urea Nitrogen 38 mg/dl Creatinine 1.64 mg/dl Est Creatinine Clear Calc Drug Dose 35.1 ml/min Estimated GFR () 43.2 Estimated GFR (Non- 37.3 BUN/Creatinine Ratio 23.4 Random Glucose 138 mg/dl Calcium Level 8.0 mg/dl Magnesium Level 2.2 mg/dl Test 01/10/18 07:30 01/10/18 11:33 Bedside Glucose 117 mg/dl 72 mg/dl
[2018-01-10] MEDS: WARFARIN SOD 2 MG TAB PO SCH (15:57)
--- NOTE | 2018-01-10 18:37 | Progress Note ---
Internal Med Progress Note Date of Service: Jan 10, 2018. Provider Documentation: SUBJECTIVE: sob and cough same feeling tired has neck pain denies chest pain or nausea no abdominal pain appetite ok OBJECTIVE: Vital Signs-as noted below Exam: General-alert and oriented. ENT-Normal hearing Neck-no neck masses Lungs-cta b/l no wheezing no crackles present Heart-S1 and S2 heard regular rate and rhythm no murmurs Abdomen-Soft bowel sounds present non tender no distension Extremities-no edema no erythema Neuro-alert and awake moves extremities non focal Lab data as noted below. ASSESSMENT & PLAN: 87M presented with sob and found to have Influenza A. An developed superimposed pneumonia. Sputum cx MSSA. treated with multiple abx. Ct was showing increased infiltrates and was also placed on antifungals but as fungal studies negative it was stopped. Also received diuretics for volume overload. Slowly Resp status improved. But very much deconditioned. requires rehab placement. Currently having orthostatic hypotension limiting pt/ot. Cardiology cut back on Flomax to once daily and stopped diuretic(patient was not on diuretic at home as per epic) .Still somewhat orthostatic today. Giving gentle fluids overnight and if no improvement in couple of days cardiology plans for fludrocortisone. 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 continue pt/ot and monitor ACUTE HYPOXEMIC RESPIRATORY FAILURE- Presented with SOB /cough for 1 week and noted to have spo2 86 in RA , improved with supplemental 02 Secondary to pneumonia FLU was positive but was not treated as he had symptoms > 1 week later developed pneumonia sputum cx growing MSSA was transferred to ICU as repeat ct chest showed worsening infiltration amiodarone was stopped for possible amiodarone toxicity received Lasix for fluid overload Appreciate pulmonary and critical care inputs received broad spectrum abx on doxycycline to complete 7 day course. to stop after today dose on voriconazole - stopped by pulmonary consulted ID for further recommendations on abx improving slowly. still weak and deconditioned NEEDS TWO STEP PRIOR TO DISCHARGED HOME pt/ot BILATERAL MULTILOBAR PNEUMONIA pneumonia in setting FLU Started on IV Zosyn ( for pseudomonal coverage in setting of Type 2 DM / hyperglycemia ) Blood CULTURE-NEGATIVE and sputum culture :Staph Aureus.MSSA Received Vancomycin ,Changed to Ceftriaxone and Doxycycline received Zyvox and Zosyn Received Solumedrol and Prednisone-discontinued on 01/02/18 Pulmonary consulted-appreciate input currently on abx as above which will be stopped today slowly improving pt/ot 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 Amiodarone stopped but may be in system for couple of months Cardiology is on board to followup with cardiology Orthostatic hypotension presyncope Flomax dose cut back to once daily by cardiology torsemide stopped giving gentle fluids today and will stop in am if still orthostatic in couple of days cardiology contemplating fludrocortisone HYPERGLYCEMIA WITH TYPE 2 DM On Lantus 22 U HS Started on IV insulin protocol currently on Lantus and iss Pharmacy consulted for glycemic management Hb A1c 9.8 on 09/2017 Hb A1c 10.4 now 138/117/72/159 close monitor OKSANA ON CKD STAGE 3 due to above received fluids held torsemide baseline cr 1.7 to 1.8 cr 1.6 today continue to monitor HYPONATREMIA : Due to hyperglycemia received fluids follow PRP -normalized Thrombocytopenia Zyvox induced? which is stopped now f/u labs HX OF A FLUTTER : Rate and rhythm controlled amiodarone stopped INR 1.6 last couple of day restarted Coumadin increased to 2mg daily inr 2.2 today f/u inr FULL CODE DISPOSITION ; monitor in tele PT/OT Medicine follow up with Dr Ward Prognosis is guarded plan for rehab when more stable Vital Signs: Date Time Temp Pulse Resp B/P (MAP) Pulse Ox O2 Delivery O2 Flow Rate FiO2 01/10/18 20:00 Nasal Cannula 1.0 01/10/18 19:53 36.7 74 20 139/70 (93) 96 Nasal Cannula 1.0 01/10/18 16:00 Nasal Cannula 1.0 01/10/18 15:41 36.3 70 16 148/73 (98) 98 1.0 01/10/18 12:00 Nasal Cannula 1.0 01/10/18 11:23 36.8 74 16 122/65 (84) 98 01/10/18 09:22 88 92/43 (59) 01/10/18 09:21 89 103/63 (76) 01/10/18 09:21 85 128/71 (90) 01/10/18 08:00 Nasal Cannula 1.0 01/10/18 07:43 36.8 75 18 118/64 (82) 98 1.0 01/10/18 07:03 72 18 97 Nasal Cannula 2.0 01/10/18 05:04 36.9 75 19 124/69 (87) 96 Nasal Cannula 2.0 01/10/18 04:00 96 Nasal Cannula 1.0 01/10/18 00:21 36.9 77 18 159/76 (103) 96 Nasal Cannula 3.0 01/10/18 00:00 96 Nasal Cannula 1.0 Lab Results: Results Past 24 Hours Test 01/10/18 05:34 01/10/18 06:36 01/10/18 07:30 01/10/18 11:33 Range/Units Prothrombin Time 22.8 9.0-12.0 SECONDS Prothromb Time International Ratio 2.2 0.9-1.1 White Blood Count 7.76 4.8-10.8 K/uL Red Blood Count 3.95 4.7-6.1 M/uL Hemoglobin 11.8 14.0-18.0 g/dL Hematocrit 36.7 42-52 % Mean Corpuscular Volume 92.9 80-100 fL Mean Corpuscular Hemoglobin 29.9 25-34 pg Mean Corpuscular Hemoglobin Concent 32.2 32-36 g/dl Platelet Count 67 130-400 K/uL Mean Platelet Volume 9.7 7.4-10.4 fL Neutrophils (%) (Auto) 72.5 % Lymphocytes (%) (Auto) 14.4 % Monocytes (%) (Auto) 5.5 % Eosinophils (%) (Auto) 7.0 % Basophils (%) (Auto) 0.1 % Neutrophils # (Auto) 5.62 1.4-6.5 K/uL Lymphocytes # (Auto) 1.12 1.2-3.4 K/uL Monocytes # (Auto) 0.43 0.11-0.59 K/uL Eosinophils # (Auto) 0.54 0-0.5 K/uL Basophils # (Auto) 0.01 0-0.2 K/uL RDW Standard Deviation 51.1 36.4-46.3 fL RDW Coefficient of Variation 15.0 11.5-14.5 % Immature Granulocyte % (Auto) 0.5 % Immature Granulocyte # (Auto) 0.04 0.00-0.02 K/uL Sodium Level 138 136-145 mmol/L Potassium Level 4.6 3.5-5.1 mmol/L Chloride Level 104 98-107 mmol/L Carbon Dioxide Level 28 21-32 mmol/L Anion Gap 6.0 3-11 mmol/L Blood Urea Nitrogen 38 7-18 mg/dl Creatinine 1.64 0.60-1.40 mg/dl Est Creatinine Clear Calc Drug Dose 35.1 ml/min Estimated GFR () 43.2 Estimated GFR (Non- 37.3 BUN/Creatinine Ratio 23.4 10-20 Random Glucose 138 70-99 mg/dl Calcium Level 8.0 8.5-10.1 mg/dl Magnesium Level 2.2 1.8-2.4 mg/dl Bedside Glucose 117 72 70-99 mg/dl Test 01/10/18 16:57 Range/Units Bedside Glucose 159 70-99 mg/dl
[2018-01-10] MEDS: TAMSULOSIN HCL 0.4 MG CAP PO SCH (20:59)
[2018-01-10] MEDS ORDERED: CYCLOBENZAPRINE HCL 5 MG TAB PO SCH (21:00)
[2018-01-11] VITALS (8 sets, daily range): BP systolic 92–147; BP diastolic 55–71; PULSE 70–84; TEMP 36.4–37; O2SAT 90–99
[2018-01-11 06:28] LABS: HEMATOCRIT 35.8 % (42-52); HEMOGLOBIN 11.6 g/dL (14.0-18.0); MEAN CORPUSCULAR HEMOGLOBIN 30.1 pg (25-34); MEAN CORPUSCULAR HGB CONC 32.4 g/dl (32-36); RED CELL DISTRIBUTION WIDTH CV 15.3 % (11.5-14.5); RED CELL DISTRIBUTION WIDTH SD 52.2 fL (36.4-46.3); WHITE BLOOD COUNT 8.63 K/uL (4.8-10.8)
[2018-01-11 06:31] LABS: MEAN PLATELET VOLUME 9.4 fL (7.4-10.4); PLATELET COUNT 64 K/uL (130-400)
[2018-01-11 06:42] LABS: INR 2.1 (0.9-1.1)
[2018-01-11 06:58] LABS: CALCIUM 7.9 mg/dl (8.5-10.1); CREATININE 1.49 mg/dl (0.60-1.40); POTASSIUM 4.3 mmol/L (3.5-5.1)
[2018-01-11 07:05] LABS: BASO % 0.1 %; BASO ABS # 0.01 K/uL (0-0.2); EOS % 4.1 %; EOS ABS # 0.35 K/uL (0-0.5); IG# 0.03 K/uL (0.00-0.02); LYMPH % 11.4 %; LYMPH ABS # 0.98 K/uL (1.2-3.4); MONO % 5.2 %; MONO ABS # 0.45 K/uL (0.11-0.59); NEUT % 78.9 %; NEUT ABS # 6.81 K/uL (1.4-6.5)
[2018-01-11] MEDS: FINASTERIDE 5 MG TAB PO SCH (08:49)
[2018-01-11] MEDS: MAGNESIUM CHLORIDE 64MG DELAYED REL TAB PO SCH (08:49)
[2018-01-11] MEDS: INSULIN ASPART 100 UNITS/ML 3 ML PEN SC SCH ×4 (08:52→21:12)
[2018-01-11] MEDS: INSULIN GLARGINE SOLOSTAR 100 UNITS/ML 3 ML PEN SC SCH (08:53)
[2018-01-11] MEDS: CHOLECALCIFEROL 1000 INTER.UNIT TAB PO SCH (10:15)
[2018-01-11] MEDS: GUAIFENESIN 600 MG TABCR PO SCH ×2 (10:15→21:09)
[2018-01-11] MEDS: PANTOprazole SOD 40 MG TAB PO SCH (10:15)
--- NOTE | 2018-01-11 15:58 | Progress Note ---
Medicine Progress Note Date & Time of Visit: Jan 11, 2018 at 15:47. Subjective 87 yo M with dyspnea, found to have influenza, was not initially started on tamiflu as symptoms had been ongoing for about one week at the time. He had become worse with a superimposed MSSA pneumonia. He was placed on antifungals for a short time, then taken off them by ID. Respiratory status continued to improve but slowly. He is not on supplemental oxygen at home but is requiring 1 -2 L here at rest. He also received diuretics for volume overload at one point. Currently, orthostatic hypotension has limited PT sessions. FLomax was reduced from twice daily to once daily. Today he is groggy and according to family, has not been out of bed all day, and has mostly been sleeping. He was given one flexeril last night for neck discomfort and this was thought to be the culprit. Flexeril was discontinued. He continues to feel weak and report multiple areas of musculoskeletal discomfort in his neck, back, and shoulders. Per he had had chronic neck pain in the past without evaluation by a medical professional, so she wasn't sure if there was any OA present or what was causing her discomfort. Daughter and at bedside and report that he is much improved from a breathing and coughing standpoint. The patient agrees. Objective Last 8 Hrs Date Time Temp Pulse Resp B/P (MAP) Pulse Ox O2 Delivery O2 Flow Rate FiO2 01/11/18 15:16 36.6 73 18 133/57 (82) 94 01/11/18 12:00 Nasal Cannula 1.0 01/11/18 11:37 36.5 70 16 136/71 (92) 99 Nasal Cannula 1.0 01/11/18 10:32 Nasal Cannula 1.0 01/11/18 08:00 Nasal Cannula 1.0 Physical Exam: GEN: WNWD, in no acute distress but is ill-appearing with clear generalized weakness, alert and appropriate HEENT: NC/AT, normal sclerae, MMM CARDIO: reg rate, S1/2 heard without m/g/r LUNGS: CTA bilaterally, however, difficult to assess the way the patient is bending over to be examined and because of his coughing. ABD: soft, non-tender, non-distended EXTREMITY: RP and DP palpable 2+ bilat, no LE swelling or edema, extremities are warm and well-perfused NEURO: CN 2-12 grossly intact MUSC: generalized weakness SKIN: warm and dry Laboratory Results: 01/11/18 06:15 Red Blood Count 3.85, Mean Corpuscular Volume 93.0, Mean Corpuscular Hemoglobin 30.1, Mean Corpuscular Hemoglobin Concent 32.4, Mean Platelet Volume 9.4, Neutrophils (%) (Auto) 78.9, Lymphocytes (%) (Auto) 11.4, Monocytes (%) (Auto) 5.2, Eosinophils (%) (Auto) 4.1, Basophils (%) (Auto) 0.1, Neutrophils # (Auto) 6.81, Lymphocytes # (Auto) 0.98, Monocytes # (Auto) 0.45, Eosinophils # (Auto) 0.35, Basophils # (Auto) 0.01 01/11/18 06:15 Test 12/15/17 15:40 12/15/17 16:11 12/15/17 17:51 12/15/17 21:25 Dohle Bodies OCCASIONAL Estimated Average Glucose 252 mg/dl Hemoglobin A1c 10.4 % (4.5-5.6) Total Creatine Kinase 111 U/L (39-308) Creatine Kinase MB 2.9 ng/ml (0.5-3.6) Creatine Kinase MB Ratio 2.6 (0-3.0) Influenza Type A Antigen Neg for Influ A (NEG) Influenza Type B Antigen Neg for Influ B (NEG) Urine Color YELLOW Urine Appearance CLEAR (CLEAR) Urine pH 5.0 (4.5-7.5) Urine Specific [place] 1.020 (1.000-1.030) Urine Protein 1+ (NEG) Urine Glucose (UA) 3+ (NEG) Urine Ketones 2+ (NEG) Urine Occult Blood 3+ (NEG) Urine Nitrite NEG (NEG) Urine Bilirubin NEG (NEG) Urine Urobilinogen NEG (NEG) Urine Leukocyte Esterase NEG (NEG) Urine RBC 5-10 /hpf (0-4) Urine WBC 1-5 /hpf (0-5) Urine Epithelial Cells 20-30 /lpf (0-5) Urine Bacteria NEG (NEG) Urine Hyaline Casts 1-5 /lpf (0-5) Influenza Type A (RT-PCR) POS for Influ A (NEG) Influenza Type B (RT-PCR) Neg for Influ B (NEG) Test 12/18/17 06:08 12/28/17 11:51 01/01/18 05:34 01/01/18 09:11 Random Vancomycin Level 10.2 mcg/ml Bedside Hemoglobin 11.6 g/dl (14.0-18.0) Bedside Hematocrit 34 % (42-52) Bedside Sodium 137 mEq/L (135-144) Bedside Potassium 3.9 mEq/L (3.3-5.0) Globulin 3.7 gm/dl (2.5-4.0) Albumin/Globulin Ratio 0.6 (0.9-2) Chemistry Specimen Hemolysis Blood Gas Sample Site L Brachial Bedside Blood Gas pH (LAB) 7.43 (7.35-7.45) Bedside Blood Gas pCO2 (LAB) 40 mmHg (35-46) Bedside Blood Gas pO2 (LAB) 81 mmHg (80-95) Bedside Blood Gas HCO3 (LAB) 26 meq/L (19-24) Bedside Blood Gas Total CO2 27 mEq/l (24-31) Bedside Blood Gas Base Excess (LAB) 2.0 meq/L (-9-1.8) Bedside Blood Gas O2 Saturation 96.0 % (90-95) Oxygen Delivery Device Cannula Test 01/02/18 13:50 01/03/18 05:40 01/03/18 09:18 01/03/18 13:02 Beta-Hydroxybutyric Acid 3.38 mg/dL (0.2-2.81) Procalcitonin 0.16 ng/ml (0-0.5) Total Bilirubin 0.7 mg/dl (0.2-1) Direct Bilirubin 0.2 mg/dl (0-0.2) Aspartate Amino Transf (AST/SGOT) 21 U/L (15-37) Alanine Aminotransferase (ALT/SGPT) 30 U/L (12-78) Alkaline Phosphatase 91 U/L (45-117) Total Protein 5.3 gm/dl (6.4-8.2) Albumin 2.1 gm/dl (3.4-5.0) Beta-(1,3)-D-Glucan <31 pg/mL Beta-(1,3)-D-Glucan Interpretation NEGATIVE Troponin I < 0.015 ng/ml (0-0.045) Pro-B-Type Natriuretic Peptide 887 pg/ml (0-1800) Mycoplasma pneumoniae IgG Antibody 2.46 (<=0.90) Mycoplasma pneumoniae IgM Antibody 58 U/mL (<770) Aspergillus flavus Antibody Negative (Negative) Aspergillus fumigatus Antibody Negative (Negative) Aspergillus niger Antibody Negative (Negative) Test 01/03/18 18:30 01/04/18 04:59 01/05/18 05:34 01/06/18 05:39 Urine Legionella Antigen NOT DETECTED (NOT DETECTED) Phosphorus Level 4.2 mg/dl (2.5-4.9) Activated Partial Thromboplast Time 39.7 SECONDS (21.0-31.0) Partial Thromboplastin Ratio 1.5 Hypersegmented Polys OCCASIONAL Platelet Estimate DECREASED Test 01/06/18 11:21 01/08/18 05:40 01/11/18 06:15 01/11/18 16:35 Arterial Blood pH 7.50 (7.35-7.45) Arterial Blood Partial Pressure CO2 37 mmHg (35-46) Arterial Blood Partial Pressure O2 104 mm/Hg (80-95) Arterial Blood HCO3 28 mmol/L (19-24) Arterial Blood Oxygen Saturation 98.0 % (90-95) Arterial Blood Base Excess 4.8 mEq/L (-9-1.8) Arterial Blood Gas Delivery 3 L Santana Test POS (POS) Red Blood Cell Morphology Unremarkable White Blood Count 8.63 K/uL (4.8-10.8) Red Blood Count 3.85 M/uL (4.7-6.1) Hemoglobin 11.6 g/dL (14.0-18.0) Hematocrit 35.8 % (42-52) Mean Corpuscular Volume 93.0 fL (80-100) Mean Corpuscular Hemoglobin 30.1 pg (25-34) Mean Corpuscular Hemoglobin Concent 32.4 g/dl (32-36) Platelet Count 64 K/uL (130-400) Mean Platelet Volume 9.4 fL (7.4-10.4) Neutrophils (%) (Auto) 78.9 % Lymphocytes (%) (Auto) 11.4 % Monocytes (%) (Auto) 5.2 % Eosinophils (%) (Auto) 4.1 % Basophils (%) (Auto) 0.1 % Neutrophils # (Auto) 6.81 K/uL (1.4-6.5) Lymphocytes # (Auto) 0.98 K/uL (1.2-3.4) Monocytes # (Auto) 0.45 K/uL (0.11-0.59) Eosinophils # (Auto) 0.35 K/uL (0-0.5) Basophils # (Auto) 0.01 K/uL (0-0.2) RDW Standard Deviation 52.2 fL (36.4-46.3) RDW Coefficient of Variation 15.3 % (11.5-14.5) Immature Granulocyte % (Auto) 0.3 % Immature Granulocyte # (Auto) 0.03 K/uL (0.00-0.02) Prothrombin Time 22.2 SECONDS (9.0-12.0) Prothromb Time International Ratio 2.1 (0.9-1.1) Anion Gap 8.0 mmol/L (3-11) Est Creatinine Clear Calc Drug Dose 37.8 ml/min Estimated GFR () 48.6 Estimated GFR (Non- 41.9 BUN/Creatinine Ratio 22.8 (10-20) Calcium Level 7.9 mg/dl (8.5-10.1) Magnesium Level 2.0 mg/dl (1.8-2.4) Bedside Glucose 127 mg/dl (70-99) Date/Time Source Procedure Growth Status 12/15/17 15:55 Blood Blood Culture - Final NO GROWTH Complete 12/31/17 00:00 Nasal MRSA DNA Surveillance Screen - Final Specimen Negative for MRSA by DNA Probe Complete 01/02/18 08:25 Sputum Expectorated Sputum Gram Stain - Final Complete 01/02/18 08:25 Sputum Expectorated Sputum Sputum Culture - Final MODERATE NORMAL NABOR. Complete Last 24 Hours Test 01/10/18 16:57 01/10/18 20:31 01/11/18 06:15 01/11/18 07:06 Bedside Glucose 159 mg/dl 125 mg/dl 98 mg/dl White Blood Count 8.63 K/uL Red Blood Count 3.85 M/uL Hemoglobin 11.6 g/dL Hematocrit 35.8 % Mean Corpuscular Volume 93.0 fL Mean Corpuscular Hemoglobin 30.1 pg Mean Corpuscular Hemoglobin Concent 32.4 g/dl Platelet Count 64 K/uL Mean Platelet Volume 9.4 fL Neutrophils (%) (Auto) 78.9 % Lymphocytes (%) (Auto) 11.4 % Monocytes (%) (Auto) 5.2 % Eosinophils (%) (Auto) 4.1 % Basophils (%) (Auto) 0.1 % Neutrophils # (Auto) 6.81 K/uL Lymphocytes # (Auto) 0.98 K/uL Monocytes # (Auto) 0.45 K/uL Eosinophils # (Auto) 0.35 K/uL Basophils # (Auto) 0.01 K/uL RDW Standard Deviation 52.2 fL RDW Coefficient of Variation 15.3 % Immature Granulocyte % (Auto) 0.3 % Immature Granulocyte # (Auto) 0.03 K/uL Prothrombin Time 22.2 SECONDS Prothromb Time International Ratio 2.1 Sodium Level 139 mmol/L Potassium Level 4.3 mmol/L Chloride Level 106 mmol/L Carbon Dioxide Level 25 mmol/L Anion Gap 8.0 mmol/L Blood Urea Nitrogen 34 mg/dl Creatinine 1.49 mg/dl Est Creatinine Clear Calc Drug Dose 37.8 ml/min Estimated GFR () 48.6 Estimated GFR (Non- 41.9 BUN/Creatinine Ratio 22.8 Random Glucose 91 mg/dl Calcium Level 7.9 mg/dl Magnesium Level 2.0 mg/dl Test 01/11/18 11:16 Bedside Glucose 136 mg/dl Assessment & Plan 87 yo M with dyspnea, found to have influenza, was not initially started on tamiflu as symptoms had been ongoing for about one week at the time. He had become worse with a superimposed MSSA pneumonia. He was placed on antifungals for a short time, then taken off them by ID. Respiratory status continued to improve but slowly. He is not on supplemental oxygen at home but is requiring 1 -2 L here at rest. He also received diuretics for volume overload at one point. Currently, orthostatic hypotension has limited PT sessions. FLomax was reduced from twice daily to once daily. Today he is groggy and according to family, has not been out of bed all day, and has mostly been sleeping. He was given one flexeril last night for neck discomfort and this was thought to be the culprit. Flexeril was discontinued. He continues to feel weak and report multiple areas of musculoskeletal discomfort in his neck, back, and shoulders. Per he had had chronic neck pain in the past without evaluation by a medical professional, so she wasn't sure if there was any OA present or what was causing her discomfort. Daughter and at bedside and report that he is much improved from a breathing and coughing standpoint. The patient agrees. 1. Hypoxia secondary to pneumonia as a complication of flu-severe deconditioning also likely contributing. He is completed a course of antibiotics at this point. Continue supportive care. Of note amiodarone was also stopped this admission in case of pulmonary toxicity 2. Severe generalized weakness-secondary to deconditioning from prolonged hospital stay. Continue PT/OT and continue to push patient out of bed during the day per nursing staff and observed proper day night cycles. 3. Orthostatic hypotension-Flomax cut from 0.4 mg twice daily to once daily by cardiology. Diuretics were stopped. Not on diuretics at home. Continue to check orthostatics daily. 4. Type 2 diabetes mellitus-continue Lantus and insulin sliding scale while in hospital. Pharmacy consulted for glycemic management. 5. CKD stage III-[place] has resolved. The creatinine is at baseline. 6. Thrombocytopenia-has continued to decrease most recently in the last few days, where infection was present several weeks ago. Also, Zyvox was given from 01/01-01/08 which may be contributing. Pt has been off this since 01/08. No active bleeding. Will consult hematology for assistance in light of the need for coumadin because of DVT. 7. Age-indeterminate DVT found on venous ultrasound during this admission (01/03 ). Patient on Coumadin. Appreciate hematology recommendations regarding the need for long-term anticoagulation. 8. History of atrial flutter-rate and rhythm controlled, amiodarone stopped out of concern of pulmonary toxicity. Coumadin on board for stroke prophylaxis. DVT prophylaxis-Coumadin Full code Disposition-continue hospitalization. Plan for [facility] at discharge. DO Damián Muñoz [facility] [address] Consultants: Kash Laird DO-Cards Current Inpatient Medications: Current Inpatient Medications Medications (Trade) Dose Ordered Sig/Krystal Route Start Time Stop Time Status Last Admin Dose Admin Miscellaneous Information (Consult Glycemic Management Pharmacy) 1 ea UD PRN N/A 12/15/17 18:01 01/14/18 18:00 Acetaminophen (Tylenol Tab) 650 mg Q4H PRN PO 12/15/17 17:15 01/14/18 17:14 12/18/17 05:52 650 MG Al Hydrox/Mg Hydrox/Simethicone (Maalox Max Susp) 15 ml Q4H PRN PO 12/15/17 17:15 01/14/18 17:14 Magnesium Hydroxide (Milk Of Magnesia Susp) 30 ml Q12H PRN PO 12/15/17 17:15 01/14/18 17:14 Ondansetron HCl (Zofran Inj) 4 mg Q6H PRN IV 12/15/17 17:15 01/14/18 17:14 Polyethylene (Miralax Powder Packet) 17 gm DAILY PRN PO 12/15/17 17:15 01/14/18 17:14 Cholecalciferol (Vitamin D Tab) 2,000 inter.unit DAILY PO 12/16/17 09:00 01/15/18 08:59 01/11/18 10:15 2,000 INTER.UNIT Pantoprazole Sodium (Protonix Tab) 40 mg QAM PO 12/16/17 09:00 01/15/18 08:59 01/11/18 10:15 40 MG Ipratropium [place] (Atrovent 0.02% 0.5MG/2.5ML Neb) 0.5 mg Q2H PRN INH 12/15/17 21:15 01/14/18 21:14 12/31/17 23:10 0.5 MG Levalbuterol (Xopenex 1.25MG/ 0.5ML Neb) 1.25 mg Q2H PRN INH 12/15/17 21:15 01/14/18 21:14 12/31/17 23:10 1.25 MG Magnesium Chloride (Slow-Mag Tab) 128 mg DAILY PO 12/17/17 10:45 01/16/18 10:44 01/11/18 08:49 128 MG Guaifenesin (Mucinex Contr Rel Tab) 600 mg Q12 PO 12/21/17 21:00 01/20/18 20:59 01/11/18 10:15 600 MG Miconazole Nitrate (Desenex Powder) 1 appln PRN PRN EXT 12/26/17 03:30 01/25/18 03:29 Finasteride (Proscar Tab) 5 mg QAM PO 12/27/17 09:00 01/26/18 08:59 01/11/18 08:49 5 MG Glucose (Glucose 40% Gel) 15-30 GRAMS 15 GRAMS... UD PRN PO 12/27/17 16:45 01/26/18 16:44 Glucose (Glucose Chew Tab) 4-8 Tablets 4 Tabl... UD PRN PO 12/27/17 16:45 01/26/18 16:44 12/27/17 16:46 4 TABS Dextrose (Dextrose 50% 50ML Syringe) 25-50ML OF 50% DW IV FOR... UD PRN IV 12/27/17 16:45 01/26/18 16:44 Glucagon (Glucagon Inj) 1 mg UD PRN SQ 12/27/17 16:45 01/26/18 16:44 Insulin Aspart (novoLOG ASPART) SLIDING SCALE 0645 SC 01/05/18 06:45 02/04/18 06:44 01/11/18 08:52 4 UNITS Tamsulosin HCl (Flomax Cap) 0.4 mg HS PO 01/07/18 21:00 02/06/18 20:59 01/10/18 20:59 0.4 MG Insulin Aspart (novoLOG ASPART) SLIDING SCALE 1100,1630,2100 SC 01/07/18 11:00 02/06/18 10:59 01/11/18 12:22 5 UNITS Warfarin Sodium (Coumadin Tab) 2 mg DAILY@1600 PO 01/08/18 17:00 02/07/18 16:59 01/10/18 15:57 2 MG Insulin Glargine (Lantus Solostar Pen) QAM GA 01/10/18 09:00 02/09/18 08:59 01/11/18 08:53 22 UNITS Ipratropium [place] (Atrovent 0.02% 0.5MG/2.5ML Neb) 0.5 mg Q4 PRN INH 01/10/18 10:30 02/09/18 10:29 Levalbuterol (Xopenex 1.25MG/ 0.5ML Neb) 1.25 mg Q4 PRN INH 01/10/18 10:30 02/09/18 10:29 Cyclobenzaprine HCl (Flexeril Tab) 5 mg HS PO 01/10/18 21:00 02/09/18 20:59 01/10/18 20:59 5 MG
--- NOTE | 2018-01-11 16:22 | Cardiology Follow-Up ---
Subjective General Date of Service: Jan 11, 2018. Chief Complaint: Follow-up lightheadedness Pt evaluation today including: conversation w/ patient, conversation w/ family , physical exam, chart review, lab review, review of studies, review of inpatient medication list History of Present Illness The patient is a 87 year old male seen in follow-up. Received a dose of Flexeril last night. He has been extremely sleepy all day. Denies chest pain or shortness of breath. Creatinine trending downward. Spent the majority of the day in bed. Allergies Coded Allergies: No Known Allergies (Unverified , 05/19/13) Social History Smoking Status: Former Smoker Hx Tobacco Use In Past Year?: No Hx Alcohol Use - Type And Amou: Yes (about 1 beer per month) Hx Substance Use - Type And Am: No Problem List Medical Problems: (1) Hyperglycemia Status: Acute (2) Hypoxia Status: Acute (3) Renal insufficiency Status: Acute Review of Systems Respiratory: + cough, + sputum, + dyspnea on exertion, No wheezing, No shortness of breath, No dyspnea at rest, No hemoptysis Cardiac: No chest pain, No orthopnea, No PND, No edema, No claudication, No palpitations Physical Exam Vital Signs Last Vital Signs Documentation Date Time Temp Pulse Resp B/P (MAP) Pulse Ox O2 Delivery O2 Flow Rate FiO2 01/11/18 16:08 137/65 (89) 92/55 (67) 01/11/18 15:16 36.6 73 18 94 01/11/18 12:00 Nasal Cannula 1.0 Physical Exam Constitutional: Level of Distress: NAD, chronically ill Ambulation: ambulating normally Head: normocephalic, atraumatic Neck: supple, trachea midline Lungs: Auscultation: breath sounds normal, no wheezing, no rales/crackles, no rhonchi Cardiovascular: Heart Auscultation: RRR, no murmurs Abdomen: Bowel Sounds: normal Inspection & Palpation: soft, non-distended, no tenderness, guarding & rebound Musculoskeletal: poor tone Extremities: no edema Neurologic: Gait & Station: pertinent finding (No focal deficits) Cranial Nerves: grossly intact Assessment and Plan Assessment and Plan Impression: 1. Orthostatic hypotension 2. History of atrial dysrhythmias and tachycardia induced cardiomyopathy -Normal LVEF and RVEF per erpeat echo this admission 3. Admission for acute hypoxemic respiratory failure due to influenza, superimposed pneumonia 4. DVT 5. Deconditioning 6. Acute renal insufficiency secondary to volume depletion -improving with IV and oral hydration Recommendations: Hold IV fluid. Encourage oral hydration. Repeat basic metabolic panel in a.m. Continue flomax once daily. Consider addition of low dose fludrocortisone in future. Discontinue Flexeril given sedating effects. Encourage patient to remain awake during daytime hours and participate in physical therapy. Laboratory Results Last 24 Hours Test 01/10/18 16:57 01/10/18 20:31 01/11/18 06:15 01/11/18 07:06 Bedside Glucose 159 mg/dl 125 mg/dl 98 mg/dl White Blood Count 8.63 K/uL Red Blood Count 3.85 M/uL Hemoglobin 11.6 g/dL Hematocrit 35.8 % Mean Corpuscular Volume 93.0 fL Mean Corpuscular Hemoglobin 30.1 pg Mean Corpuscular Hemoglobin Concent 32.4 g/dl Platelet Count 64 K/uL Mean Platelet Volume 9.4 fL Neutrophils (%) (Auto) 78.9 % Lymphocytes (%) (Auto) 11.4 % Monocytes (%) (Auto) 5.2 % Eosinophils (%) (Auto) 4.1 % Basophils (%) (Auto) 0.1 % Neutrophils # (Auto) 6.81 K/uL Lymphocytes # (Auto) 0.98 K/uL Monocytes # (Auto) 0.45 K/uL Eosinophils # (Auto) 0.35 K/uL Basophils # (Auto) 0.01 K/uL RDW Standard Deviation 52.2 fL RDW Coefficient of Variation 15.3 % Immature Granulocyte % (Auto) 0.3 % Immature Granulocyte # (Auto) 0.03 K/uL Prothrombin Time 22.2 SECONDS Prothromb Time International Ratio 2.1 Sodium Level 139 mmol/L Potassium Level 4.3 mmol/L Chloride Level 106 mmol/L Carbon Dioxide Level 25 mmol/L Anion Gap 8.0 mmol/L Blood Urea Nitrogen 34 mg/dl Creatinine 1.49 mg/dl Est Creatinine Clear Calc Drug Dose 37.8 ml/min Estimated GFR () 48.6 Estimated GFR (Non- 41.9 BUN/Creatinine Ratio 22.8 Random Glucose 91 mg/dl Calcium Level 7.9 mg/dl Magnesium Level 2.0 mg/dl Test 01/11/18 11:16 Bedside Glucose 136 mg/dl
[2018-01-11] MEDS: WARFARIN SOD 2 MG TAB PO SCH (16:54)
[2018-01-11] MEDS: ACETAMINOPHEN 500 MG TAB PO SCH (21:09)
[2018-01-11] MEDS: TAMSULOSIN HCL 0.4 MG CAP PO SCH (21:09)
[2018-01-12] VITALS (10 sets, daily range): BP systolic 63–145; BP diastolic 34–75; PULSE 71–91; TEMP 36.3–36.6; O2SAT 92–97
[2018-01-12] MEDS: ACETAMINOPHEN 500 MG TAB PO SCH ×2 (05:52→13:48)
[2018-01-12 06:06] LABS: INR 2.6 (0.9-1.1)
[2018-01-12] MEDS: INSULIN ASPART 100 UNITS/ML 3 ML PEN SC SCH ×4 (08:06→21:25)
[2018-01-12] MEDS: MAGNESIUM CHLORIDE 64MG DELAYED REL TAB PO SCH (08:08)
[2018-01-12] MEDS: CHOLECALCIFEROL 1000 INTER.UNIT TAB PO SCH (08:08)
[2018-01-12] MEDS: GUAIFENESIN 600 MG TABCR PO SCH ×2 (08:08→20:53)
[2018-01-12] MEDS: PANTOprazole SOD 40 MG TAB PO SCH (08:08)
[2018-01-12] MEDS: FINASTERIDE 5 MG TAB PO SCH (08:09)
--- NOTE | 2018-01-12 08:30 | Pharmacy Progress Note ---
Pharmacy Glycemic Short Note 2 Date of Service Jan 12, 2018. OUTPATIENT ANTIDIABETIC REGIMEN: * Lantus 22 units SQ daily at dinner * HbA1c: 10.4% (12/15/17) ASSESSMENT: 01/12/18 * Mr. Burgess has remained stable, until a hypoglycemic episode this AM - 56 mg/dL * He has consistently received 30-35 units/day, but heavily weighted on basal insulin, which is what ended up causing the low * SCr has continued to improve daily * PO intake shows an ave of 40-50 gm CHO with each meal * Will plan to decrease Lantus slightly and adjust scale to provide a lower dose for BSG < 100 instead of < 80 01/10/18 * Mr. Burgess received 31 units of insulin yesterday * BSGs ranging from 117-207 mg/dL * SCr has improved so I suspect this is why BSGs were somewhat more elevated yesterday * No other changes to causes of insulin resistance * AM fasting = 117: no change to basal insulin * Postprandial BSGs = 137, 198, 207: will tighten goal range back to 120-160 for all meals 01/08/18 * Changes to stressors - none * BSG's ranging 105-297 mg/dL over the last 24 hours * AM fasting at 105 mg/dL (has been 130-174-105 mg/dL x3 days). No clear downward trend therefore OK to leave Lantus at current dose * Post-prandial hyperglycemia noted * Hesitant to tighten CHO ratio too much as this caused significant hypoglycemia on 01/05. Will therefore tighten, but will be significantly looser than previous. * Will also decrease goal range (which will provide slightly more correctional insulin for most BSG's above 160 mg/dL) PLAN FOR INPATIENT GLYCEMIC CONTROL: * Basal insulin - decrease * Lantus 20 units once daily * Lantus 18 units once daily (for BSG < 100) * Bolus insulin - no change * Novolog ACHS * Correction Factor: 15 mg/dL/unit with breakfast, 30 mg/dL/unit with lunch, dinner and HS * Carbohydrate ratio of 1 unit per 6 grams of carbs consumed with breakfast, 1 unit per 13 with lunch, dinner and HS * Goal range: 120-160 mg/dL for all Novolog times PLAN FOR DISCHARGE: * For rehab facility: * Lantus 20 units once daily * Novolog per sliding scale ACHS (CF of 30 mg/dL/unit) * Novolog 4 units with each meal * For discharge after rehab facility: * Lantus 22 units once daily with evening meal * ADD Novolog 8 units daily with dinner * Can consider adding a GLP-1 (eg. Trulicity 0.75 mg once weekly or Victoza 0.6 mg daily initially) in place of the Novolog but I'm not sure what his insurance will cover
[2018-01-12] MEDS: INSULIN GLARGINE SOLOSTAR 100 UNITS/ML 3 ML PEN SC SCH (09:13)
[2018-01-12] MEDS: WARFARIN SOD 2 MG TAB PO SCH (16:05)
[2018-01-12] MEDS ORDERED: ACETAMINOPHEN 325 MG TAB PO PRN (16:15)
--- NOTE | 2018-01-12 16:16 | Progress Note ---
Medicine Progress Note Date & Time of Visit: Jan 12, 2018 at 16:01. Subjective 87 yo M with dyspnea, found to have influenza, was not initially started on tamiflu as symptoms had been ongoing for about one week at the time. He had become worse with a superimposed MSSA pneumonia. He was placed on antifungals for a short time, then taken off them by ID. Respiratory status continued to improve but slowly. He is not on supplemental oxygen at home but is requiring 1 -2 L here at rest. He also received diuretics for volume overload at one point. Currently, orthostatic hypotension has limited PT sessions. Flomax was reduced from twice daily to once daily, but this has not improved. He continues to be groggy today but is not confused and is able to converse appropriately with me. Tylenol was scheduled yesterday because of severe neck and back pain along with other joint pain, however, it is possible this drowsiness is a result of that. This possibility was discussed with the family who is at bedside. His is tearful, and doesn't feel he will be able to sit up in a chair, which is the next ambulation goal. We discussed limitations and goals with family and nurse who has him tonight. All concerns were addressed. The patient specifically denies any symptoms at this time, reports feeling fine, reports a BM yesterday and was awake and eating breakfast today. He was able to stand up at the side of the bed with PT today, and denied any lightheadedness. Objective Last 8 Hrs Date Time Temp Pulse Resp B/P (MAP) Pulse Ox O2 Delivery O2 Flow Rate FiO2 01/12/18 15:15 80 15 74/34 (47) 92 Nasal Cannula 1.0 01/12/18 12:31 96 Nasal Cannula 1.0 01/12/18 11:19 36.3 74 20 119/67 (84) 97 01/12/18 08:54 74 117/63 (81) 74 81/50 (60) 91 63/ (21) 01/12/18 08:22 95 Nasal Cannula 1.0 Physical Exam: GEN: WNWD, in no acute distress but is ill-appearing with clear generalized weakness, fatigued and very sleepy but is easily awoken with verbal stimuli and can carry on a conversation appropriately. HEENT: NC/AT, normal sclerae, MMM CARDIO: reg rate, S1/2 heard without m/g/r LUNGS: CTA bilaterally ABD: soft, non-tender, non-distended EXTREMITY: RP and DP palpable 2+ bilat, no LE swelling or edema, extremities are warm and well-perfused NEURO: difficult to assess because of patient's fatigue. MUSC: generalized weakness, pt requires max assistance to sit up and move in bed at all. SKIN: warm and dry Laboratory Results: 01/11/18 06:15 Red Blood Count 3.85, Mean Corpuscular Volume 93.0, Mean Corpuscular Hemoglobin 30.1, Mean Corpuscular Hemoglobin Concent 32.4, Mean Platelet Volume 9.4, Neutrophils (%) (Auto) 78.9, Lymphocytes (%) (Auto) 11.4, Monocytes (%) (Auto) 5.2, Eosinophils (%) (Auto) 4.1, Basophils (%) (Auto) 0.1, Neutrophils # (Auto) 6.81, Lymphocytes # (Auto) 0.98, Monocytes # (Auto) 0.45, Eosinophils # (Auto) 0.35, Basophils # (Auto) 0.01 01/11/18 06:15 Test 12/15/17 15:40 12/15/17 16:11 12/15/17 17:51 12/15/17 21:25 Dohle Bodies OCCASIONAL Estimated Average Glucose 252 mg/dl Hemoglobin A1c 10.4 % (4.5-5.6) Total Creatine Kinase 111 U/L (39-308) Creatine Kinase MB 2.9 ng/ml (0.5-3.6) Creatine Kinase MB Ratio 2.6 (0-3.0) Influenza Type A Antigen Neg for Influ A (NEG) Influenza Type B Antigen Neg for Influ B (NEG) Urine Color YELLOW Urine Appearance CLEAR (CLEAR) Urine pH 5.0 (4.5-7.5) Urine Specific [place] 1.020 (1.000-1.030) Urine Protein 1+ (NEG) Urine Glucose (UA) 3+ (NEG) Urine Ketones 2+ (NEG) Urine Occult Blood 3+ (NEG) Urine Nitrite NEG (NEG) Urine Bilirubin NEG (NEG) Urine Urobilinogen NEG (NEG) Urine Leukocyte Esterase NEG (NEG) Urine RBC 5-10 /hpf (0-4) Urine WBC 1-5 /hpf (0-5) Urine Epithelial Cells 20-30 /lpf (0-5) Urine Bacteria NEG (NEG) Urine Hyaline Casts 1-5 /lpf (0-5) Influenza Type A (RT-PCR) POS for Influ A (NEG) Influenza Type B (RT-PCR) Neg for Influ B (NEG) Test 12/18/17 06:08 12/28/17 11:51 01/01/18 05:34 01/01/18 09:11 Random Vancomycin Level 10.2 mcg/ml Bedside Hemoglobin 11.6 g/dl (14.0-18.0) Bedside Hematocrit 34 % (42-52) Bedside Sodium 137 mEq/L (135-144) Bedside Potassium 3.9 mEq/L (3.3-5.0) Globulin 3.7 gm/dl (2.5-4.0) Albumin/Globulin Ratio 0.6 (0.9-2) Chemistry Specimen Hemolysis Blood Gas Sample Site L Brachial Bedside Blood Gas pH (LAB) 7.43 (7.35-7.45) Bedside Blood Gas pCO2 (LAB) 40 mmHg (35-46) Bedside Blood Gas pO2 (LAB) 81 mmHg (80-95) Bedside Blood Gas HCO3 (LAB) 26 meq/L (19-24) Bedside Blood Gas Total CO2 27 mEq/l (24-31) Bedside Blood Gas Base Excess (LAB) 2.0 meq/L (-9-1.8) Bedside Blood Gas O2 Saturation 96.0 % (90-95) Oxygen Delivery Device Cannula Test 01/02/18 13:50 01/03/18 05:40 01/03/18 09:18 01/03/18 13:02 Beta-Hydroxybutyric Acid 3.38 mg/dL (0.2-2.81) Procalcitonin 0.16 ng/ml (0-0.5) Total Bilirubin 0.7 mg/dl (0.2-1) Direct Bilirubin 0.2 mg/dl (0-0.2) Aspartate Amino Transf (AST/SGOT) 21 U/L (15-37) Alanine Aminotransferase (ALT/SGPT) 30 U/L (12-78) Alkaline Phosphatase 91 U/L (45-117) Total Protein 5.3 gm/dl (6.4-8.2) Albumin 2.1 gm/dl (3.4-5.0) Beta-(1,3)-D-Glucan <31 pg/mL Beta-(1,3)-D-Glucan Interpretation NEGATIVE Troponin I < 0.015 ng/ml (0-0.045) Pro-B-Type Natriuretic Peptide 887 pg/ml (0-1800) Mycoplasma pneumoniae IgG Antibody 2.46 (<=0.90) Mycoplasma pneumoniae IgM Antibody 58 U/mL (<770) Aspergillus flavus Antibody Negative (Negative) Aspergillus fumigatus Antibody Negative (Negative) Aspergillus niger Antibody Negative (Negative) Test 01/03/18 18:30 01/04/18 04:59 01/05/18 05:34 01/06/18 05:39 Urine Legionella Antigen NOT DETECTED (NOT DETECTED) Phosphorus Level 4.2 mg/dl (2.5-4.9) Activated Partial Thromboplast Time 39.7 SECONDS (21.0-31.0) Partial Thromboplastin Ratio 1.5 Hypersegmented Polys OCCASIONAL Platelet Estimate DECREASED Test 01/06/18 11:21 01/08/18 05:40 01/11/18 06:15 01/12/18 05:36 Arterial Blood pH 7.50 (7.35-7.45) Arterial Blood Partial Pressure CO2 37 mmHg (35-46) Arterial Blood Partial Pressure O2 104 mm/Hg (80-95) Arterial Blood HCO3 28 mmol/L (19-24) Arterial Blood Oxygen Saturation 98.0 % (90-95) Arterial Blood Base Excess 4.8 mEq/L (-9-1.8) Arterial Blood Gas Delivery 3 L Santana Test POS (POS) Red Blood Cell Morphology Unremarkable White Blood Count 8.63 K/uL (4.8-10.8) Red Blood Count 3.85 M/uL (4.7-6.1) Hemoglobin 11.6 g/dL (14.0-18.0) Hematocrit 35.8 % (42-52) Mean Corpuscular Volume 93.0 fL (80-100) Mean Corpuscular Hemoglobin 30.1 pg (25-34) Mean Corpuscular Hemoglobin Concent 32.4 g/dl (32-36) Platelet Count 64 K/uL (130-400) Mean Platelet Volume 9.4 fL (7.4-10.4) Neutrophils (%) (Auto) 78.9 % Lymphocytes (%) (Auto) 11.4 % Monocytes (%) (Auto) 5.2 % Eosinophils (%) (Auto) 4.1 % Basophils (%) (Auto) 0.1 % Neutrophils # (Auto) 6.81 K/uL (1.4-6.5) Lymphocytes # (Auto) 0.98 K/uL (1.2-3.4) Monocytes # (Auto) 0.45 K/uL (0.11-0.59) Eosinophils # (Auto) 0.35 K/uL (0-0.5) Basophils # (Auto) 0.01 K/uL (0-0.2) RDW Standard Deviation 52.2 fL (36.4-46.3) RDW Coefficient of Variation 15.3 % (11.5-14.5) Immature Granulocyte % (Auto) 0.3 % Immature Granulocyte # (Auto) 0.03 K/uL (0.00-0.02) Anion Gap 8.0 mmol/L (3-11) Est Creatinine Clear Calc Drug Dose 37.8 ml/min Estimated GFR () 48.6 Estimated GFR (Non- 41.9 BUN/Creatinine Ratio 22.8 (10-20) Calcium Level 7.9 mg/dl (8.5-10.1) Magnesium Level 2.0 mg/dl (1.8-2.4) Prothrombin Time 26.4 SECONDS (9.0-12.0) Prothromb Time International Ratio 2.6 (0.9-1.1) Test 01/12/18 11:38 Bedside Glucose 98 mg/dl (70-99) Date/Time Source Procedure Growth Status 12/15/17 15:55 Blood Blood Culture - Final NO GROWTH Complete 12/31/17 00:00 Nasal MRSA DNA Surveillance Screen - Final Specimen Negative for MRSA by DNA Probe Complete 01/02/18 08:25 Sputum Expectorated Sputum Gram Stain - Final Complete 01/02/18 08:25 Sputum Expectorated Sputum Sputum Culture - Final MODERATE NORMAL NABOR. Complete Last 24 Hours Test 01/11/18 16:35 01/11/18 20:50 01/12/18 05:36 01/12/18 07:12 Bedside Glucose 127 mg/dl 153 mg/dl 56 mg/dl Prothrombin Time 26.4 SECONDS Prothromb Time International Ratio 2.6 Test 01/12/18 07:35 01/12/18 11:38 Bedside Glucose 97 mg/dl 98 mg/dl Assessment & Plan 87 yo M with dyspnea, found to have influenza, was not initially started on tamiflu as symptoms had been ongoing for about one week at the time. He had become worse with a superimposed MSSA pneumonia. He was placed on antifungals for a short time, then taken off them by ID. Respiratory status continued to improve but slowly. He is not on supplemental oxygen at home but is requiring 1 -2 L here at rest. He also received diuretics for volume overload at one point. Currently, orthostatic hypotension has limited PT sessions. Flomax was reduced from twice daily to once daily, but this has not improved. He continues to be groggy today but is not confused and is able to converse appropriately with me. Tylenol was scheduled yesterday because of severe neck and back pain along with other joint pain, however, it is possible this drowsiness is a result of that. This possibility was discussed with the family who is at bedside. His is tearful, and doesn't feel he will be able to sit up in a chair, which is the next ambulation goal. We discussed limitations and goals with family and nurse who has him tonight. All concerns were addressed. The patient specifically denies any symptoms at this time, reports feeling fine, reports a BM yesterday and was awake and eating breakfast today. He was able to stand up at the side of the bed with PT today, and denied any lightheadedness. 1. Hypoxia secondary to pneumonia as a complication of flu-severe deconditioning also likely contributing. He is completed a course of antibiotics at this point. Continue supportive care. Of note amiodarone was also stopped this admission in case of pulmonary toxicity. Continue current therapy. 2. Severe generalized weakness-secondary to deconditioning from prolonged hospital stay. Continue PT/OT and continue to push patient out of bed during the day per nursing staff and observed proper day night cycles. Scheduled tylenol is being stopped which is likely adding to fatigue. 3. Orthostatic hypotension-Flomax cut from 0.4 mg twice daily to once daily by cardiology. Diuretics were stopped. Not on diuretics at home. Still has significant orthostatic hypotension which is likely a result of prolonged bedrest and autonomic neuropathy. Will give 1L IVF as patient has been sleepy and not eating/drinking for most of the day. Cont to reassess daily. 4. Type 2 diabetes mellitus-continue Lantus and insulin sliding scale while in hospital. Pharmacy consulted for glycemic management. Hypoglycemic this morning as a result of Lantus; dose was decreased. Appreciate pharmacy recs. 5. CKD stage III-[place] has resolved. The creatinine is at baseline. 6. Thrombocytopenia-has continued to decrease most recently in the last few days, where infection was present several weeks ago. Also, Zyvox was given from 01/01-01/08 which may be contributing. Pt has been off this since 01/08. No active bleeding. Hematology consult placed for assistance in light of the need for coumadin because of DVT. 7. Age-indeterminate DVT found on venous ultrasound during this admission (01/03 ). No prior h/o blood clots or leg symptoms. Patient on Coumadin. Appreciate hematology recommendations regarding the need for long-term anticoagulation. 8. History of atrial flutter-rate and rhythm controlled, amiodarone stopped out of concern of pulmonary toxicity. Coumadin on board for stroke prophylaxis. DVT prophylaxis-Coumadin Full code Disposition-continue hospitalization. Plan for [facility] at discharge. DO Damián Muñoz [facility] Consultants: Kash Laird DO-[facility] Hematology-Dalton Leigh MD Current Inpatient Medications: Current Inpatient Medications Medications (Trade) Dose Ordered Sig/Krystal Route Start Time Stop Time Status Last Admin Dose Admin Miscellaneous Information (Consult Glycemic Management Pharmacy) 1 ea UD PRN N/A 12/15/17 18:01 01/14/18 18:00 Al Hydrox/Mg Hydrox/Simethicone (Maalox Max Susp) 15 ml Q4H PRN PO 12/15/17 17:15 01/14/18 17:14 Magnesium Hydroxide (Milk Of Magnesia Susp) 30 ml Q12H PRN PO 12/15/17 17:15 01/14/18 17:14 Ondansetron HCl (Zofran Inj) 4 mg Q6H PRN IV 12/15/17 17:15 01/14/18 17:14 Polyethylene (Miralax Powder Packet) 17 gm DAILY PRN PO 12/15/17 17:15 01/14/18 17:14 Cholecalciferol (Vitamin D Tab) 2,000 inter.unit DAILY PO 12/16/17 09:00 01/15/18 08:59 01/12/18 08:08 2,000 INTER.UNIT Pantoprazole Sodium (Protonix Tab) 40 mg QAM PO 12/16/17 09:00 01/15/18 08:59 01/12/18 08:08 40 MG Ipratropium [place] (Atrovent 0.02% 0.5MG/2.5ML Neb) 0.5 mg Q2H PRN INH 12/15/17 21:15 01/14/18 21:14 12/31/17 23:10 0.5 MG Levalbuterol (Xopenex 1.25MG/ 0.5ML Neb) 1.25 mg Q2H PRN INH 12/15/17 21:15 01/14/18 21:14 12/31/17 23:10 1.25 MG Magnesium Chloride (Slow-Mag Tab) 128 mg DAILY PO 12/17/17 10:45 01/16/18 10:44 01/12/18 08:08 128 MG Guaifenesin (Mucinex Contr Rel Tab) 600 mg Q12 PO 12/21/17 21:00 01/20/18 20:59 01/12/18 08:08 600 MG Miconazole Nitrate (Desenex Powder) 1 appln PRN PRN EXT 12/26/17 03:30 01/25/18 03:29 Finasteride (Proscar Tab) 5 mg QAM PO 12/27/17 09:00 01/26/18 08:59 01/12/18 08:09 5 MG Glucose (Glucose 40% Gel) 15-30 GRAMS 15 GRAMS... UD PRN PO 12/27/17 16:45 01/26/18 16:44 Glucose (Glucose Chew Tab) 4-8 Tablets 4 Tabl... UD PRN PO 12/27/17 16:45 01/26/18 16:44 12/27/17 16:46 4 TABS Dextrose (Dextrose 50% 50ML Syringe) 25-50ML OF 50% DW IV FOR... UD PRN IV 12/27/17 16:45 01/26/18 16:44 Glucagon (Glucagon Inj) 1 mg UD PRN SQ 12/27/17 16:45 01/26/18 16:44 Insulin Aspart (novoLOG ASPART) SLIDING SCALE 0645 SC 01/05/18 06:45 02/04/18 06:44 01/11/18 08:52 4 UNITS Tamsulosin HCl (Flomax Cap) 0.4 mg HS PO 01/07/18 21:00 02/06/18 20:59 01/11/18 21:09 0.4 MG Insulin Aspart (novoLOG ASPART) SLIDING SCALE 1100,1630,2100 SC 01/07/18 11:00 02/06/18 10:59 01/12/18 12:20 1 UNITS Warfarin Sodium (Coumadin Tab) 2 mg DAILY@1600 PO 01/08/18 17:00 02/07/18 16:59 01/11/18 16:54 2 MG Ipratropium [place] (Atrovent 0.02% 0.5MG/2.5ML Neb) 0.5 mg Q4 PRN INH 01/10/18 10:30 02/09/18 10:29 Levalbuterol (Xopenex 1.25MG/ 0.5ML Neb) 1.25 mg Q4 PRN INH 01/10/18 10:30 02/09/18 10:29 Acetaminophen (Tylenol Tab) 1,000 mg Q8 PO 01/11/18 22:00 02/10/18 21:59 01/12/18 13:48 1,000 MG Insulin Glargine (Lantus Solostar Pen) SEE PROTOCOL TEXT QAM SC 01/12/18 09:00 02/11/18 08:59 01/12/18 09:13 18 UNITS
[2018-01-12] MEDS ORDERED: SODIUM CHLORIDE 0.9% 1000ML 1,000 ML IV SCH (16:30)
--- NOTE | 2018-01-12 19:25 | Medical Consult ---
Consultation Date of Consultation: Jan 12, 2018. Attending Physician: Cristine Real DO History of Present Illness Hematology/Oncology consult: Evaluation management of right lower extremity DVT with the new thrombocytopenia, on chronic anticoagulant treatment with Coumadin (for cardiac arrhythmia). Date of consultation: 01/12/2018 HPI: 87-year-old male, was admitted at [facility] about 1 month back on 12/15/2017, found to have Influenza with secondary bacterial pneumonia growing MSSA. He had a normal platelet count on admission, on Coumadin treatment for underlying cardiac arrhythmia. He has even several courses of different antibiotic treatment over the last one month: Zocin, Rocephin, azithromycin, Zyvox, voriconazole, doxycycline. He is gradually recovering from the infections, I saw him at bedside, several family members were also at bedside, no fever, no night sweats, he is on oxygen therapy at 1 liter/minute, he was not on any oxygen therapy at home, hemodynamically stable but has post hypertension, no nausea, no vomiting, no increasing leg edema. REVIEW OF SYSTEMS: GENERAL: Some weight loss noted, feeling weak and tired, no fever or chills at this time. SKIN: No skin rash, no bruising. HEAD: No new headache, no dizziness. EYES: No recent change in the vision, no diplopia, EARS: No earache no tinnitus, NOSE: No epistaxis, No nasal discharge or stuffiness, MOUTH: No sores, no dysphagia, no hoarseness of voice, NECK: No lumps, No swelling in thyroid area. No stiffness. PULMONARY: Cough with scanty white expectant present, mild shortness of breath , he is on oxygen therapy, no hemoptysis, no chest pain, No wheezing. CARDIOVASCULAR: No anginal chest pain, no PND, no orthopnea. No palpitation, no leg edema. No syncope. GASTROINTESTINAL: No abdominal pain, no nausea or vomiting. No diarrhea, mild constipation. No blood in stool or black tarry stools. No abdominal distention. UROLOGIC: No burning urination. No hematuria. MUSCULOSKELETAL: No joint pain, No joint swelling, no muscle weakness. HEMATOLOGIC: No anemia, no bleeding disorder, No bruising. NEUROLOGIC: No seizures, no focal weakness, no speech difficulty, No memory disturbances. No tingling or numbness of the extremities. PSYCHIATRIC: No depression. No anxiety. No psychosis. Past medical and surgical history: -atrial flutter on Coumadin -diabetes mellitus -hypertension. Social history: Nonsmoker, denies any ETOH abuse. Family history: Not significant Medications: Please review his chart for detailed list of medications. Allergies: None On exam: - Alert and oriented x3, well built man, not in any distress. - HEENT: no icterus, no pallor, Throat: Normal. - Neck: No palpable cervical lymphadenopathy. - Chest: clear to auscultation. - Abdomen: soft, nontender, no hepatomegaly, no splenomegaly. - No focal neuro deficit. - Extremities: no finger clubbing, no leg edema. Lab: - platelet count has dropped in the last one week from normal range around 140, 000-150,000 around 01/01/2018 around 64,000 as of 01/11/2018. -he had polymorphonuclear leukocytosis earlier about 1 month back when he was admitted, now it is in normal range. -stable hemoglobin level between 11-12 g/dL over the last one month. - Already on the Coumadin treatment for underlying cardiac arrhythmia, he had elevated INR on admission around 4.5. INR fluctuated between 1.3-5.5 in the last one month. -had worsening kidney function tests, serum creatinine level had increased on 2.6 mg/dL, now has dropped down to around 1.4 (01/11/2018) -Normal liver function test. (01/03/2018) -influenza A positive. Blood culture negative. Imaging: -bilateral lower extremity Doppler evaluation done on 01/03/2018--> DVT involving the right popliteal and peroneal vein, no DVT in the left lower extremity. -CT scan of the chest done on 01/01/2018--> multifocal ground-glass opacities noted in the both lungs, trace right pleural effusion, slightly decreasing mediastinal lymphadenopathy appears to be reactive in nature. ASSESSMENT AND PLAN: 87-year-old the male, who is on chronic anticoagulant treatment Coumadin for underlying cardiac arrhythmia, admitted at [facility] about 1 month back, found to have Influenza with secondary bacterial pneumonia growing MSSA, received several antibiotic treatment gradually recovering, about 1 week back he had a normal platelet count, now it has dropped down to around 60,000 thousand, no new bleeding complications, he is on small dose of oral Coumadin, Doppler evaluation showed right lower extremity DVT, not sure about the acute versus chronic, he does not have any right lower extremity edema at this time, he is gradually getting better and likely to go to [facility]. Hemoglobin level has remained stable, white blood cell count is in normal range. Thrombocytopenia appears to related to the antibiotic treatment that he received over the last one month course now he is off the antibiotic treatment, now INR has remained therapeutic.. He has not received heparin during this hospitalization. Would like to check Vitamin B12, Folic acid and immature platelet fraction. I think in the next few days his platelet count is likely to improve and likely to go back to the normal range in the next 1 to 2 weeks. He will continue oral Coumadin for underlying cardiac arrhythmia, watch for bleeding complications. Will follow up. Thanks for the consultation. Dr. Dalton Leigh Hem/Onc (This note was completed using the dictation program Fluency Direct. As such, there may be misspellings, word substitutions, or other variations that should not change the essence of the clinical content of this encounter note. If there is need for further clarification, please direct questions to the provider listed above.) Past Medical/Surgical History Medical Problems: (1) Hyperglycemia Status: Acute (2) Hypoxia Status: Acute (3) Renal insufficiency Status: Acute Social History Smoking Status: Former Smoker Drug Use: none Marital Status: Housing Status: lives with significant other Occupation Status: retired Allergies Coded Allergies: No Known Allergies (Unverified , 05/19/13) Current Inpatient Medications Current Inpatient Medications Medications (Trade) Dose Ordered Sig/Krystal Route Start Time Stop Time Status Last Admin Dose Admin Miscellaneous Information (Consult Glycemic Management Pharmacy) 1 ea UD PRN N/A 12/15/17 18:01 01/14/18 18:00 Al Hydrox/Mg Hydrox/Simethicone (Maalox Max Susp) 15 ml Q4H PRN PO 12/15/17 17:15 01/14/18 17:14 Magnesium Hydroxide (Milk Of Magnesia Susp) 30 ml Q12H PRN PO 12/15/17 17:15 01/14/18 17:14 Ondansetron HCl (Zofran Inj) 4 mg Q6H PRN IV 12/15/17 17:15 01/14/18 17:14 Polyethylene (Miralax Powder Packet) 17 gm DAILY PRN PO 12/15/17 17:15 01/14/18 17:14 Cholecalciferol (Vitamin D Tab) 2,000 inter.unit DAILY PO 12/16/17 09:00 01/15/18 08:59 01/12/18 08:08 2,000 INTER.UNIT Pantoprazole Sodium (Protonix Tab) 40 mg QAM PO 12/16/17 09:00 01/15/18 08:59 01/12/18 08:08 40 MG Ipratropium [place] (Atrovent 0.02% 0.5MG/2.5ML Neb) 0.5 mg Q2H PRN INH 12/15/17 21:15 01/14/18 21:14 12/31/17 23:10 0.5 MG Levalbuterol (Xopenex 1.25MG/ 0.5ML Neb) 1.25 mg Q2H PRN INH 12/15/17 21:15 01/14/18 21:14 12/31/17 23:10 1.25 MG Magnesium Chloride (Slow-Mag Tab) 128 mg DAILY PO 12/17/17 10:45 01/16/18 10:44 01/12/18 08:08 128 MG Guaifenesin (Mucinex Contr Rel Tab) 600 mg Q12 PO 12/21/17 21:00 01/20/18 20:59 01/12/18 08:08 600 MG Miconazole Nitrate (Desenex Powder) 1 appln PRN PRN EXT 12/26/17 03:30 01/25/18 03:29 Finasteride (Proscar Tab) 5 mg QAM PO 12/27/17 09:00 01/26/18 08:59 01/12/18 08:09 5 MG Glucose (Glucose 40% Gel) 15-30 GRAMS 15 GRAMS... UD PRN PO 12/27/17 16:45 01/26/18 16:44 Glucose (Glucose Chew Tab) 4-8 Tablets 4 Tabl... UD PRN PO 12/27/17 16:45 01/26/18 16:44 12/27/17 16:46 4 TABS Dextrose (Dextrose 50% 50ML Syringe) 25-50ML OF 50% DW IV FOR... UD PRN IV 12/27/17 16:45 01/26/18 16:44 Glucagon (Glucagon Inj) 1 mg UD PRN SQ 12/27/17 16:45 01/26/18 16:44 Insulin Aspart (novoLOG ASPART) SLIDING SCALE 0645 SC 01/05/18 06:45 02/04/18 06:44 01/11/18 08:52 4 UNITS Tamsulosin HCl (Flomax Cap) 0.4 mg HS PO 01/07/18 21:00 02/06/18 20:59 01/11/18 21:09 0.4 MG Insulin Aspart (novoLOG ASPART) SLIDING SCALE 1100,1630,2100 SC 01/07/18 11:00 02/06/18 10:59 01/12/18 17:40 3 UNITS Warfarin Sodium (Coumadin Tab) 2 mg DAILY@1600 PO 01/08/18 17:00 02/07/18 16:59 01/12/18 16:05 2 MG Ipratropium [place] (Atrovent 0.02% 0.5MG/2.5ML Neb) 0.5 mg Q4 PRN INH 01/10/18 10:30 02/09/18 10:29 Levalbuterol (Xopenex 1.25MG/ 0.5ML Neb) 1.25 mg Q4 PRN INH 01/10/18 10:30 02/09/18 10:29 Insulin Glargine (Lantus Solostar Pen) SEE PROTOCOL TEXT QAM SC 01/12/18 09:00 02/11/18 08:59 01/12/18 09:13 18 UNITS Acetaminophen (Tylenol Tab) 325 mg Q4H PRN PO 01/12/18 16:15 02/11/18 16:14 Sodium Chloride 1,000 ml @ 125 mls/hr Q8H IV 01/12/18 16:30 01/13/18 00:29 01/12/18 17:01 125 MLS/HR Physical Exam Date Time Temp Pulse Resp B/P (MAP) Pulse Ox O2 Delivery O2 Flow Rate FiO2 01/12/18 19:20 36.6 75 20 129/69 (89) 97 Nasal Cannula 2.0 01/12/18 16:05 145/75 (98) 01/12/18 16:00 92 Nasal Cannula 1.0 01/12/18 15:15 80 15 74/34 (47) 92 Nasal Cannula 1.0 01/12/18 12:31 96 Nasal Cannula 1.0 01/12/18 11:19 36.3 74 20 119/67 (84) 97 01/12/18 08:54 74 117/63 (81) 74 81/50 (60) 91 63/ (21) 01/12/18 08:22 95 Nasal Cannula 1.0 01/12/18 06:45 36.4 71 18 106/61 (76) 95 Nasal Cannula 1.0 01/12/18 04:00 Nasal Cannula 1.0 01/12/18 03:25 36.6 77 18 110/62 (78) 92 Nasal Cannula 1.0 01/12/18 00:00 Nasal Cannula 1.0 01/11/18 23:15 37.0 78 16 118/68 (85) 90 Nasal Cannula 2.0 01/11/18 20:00 Nasal Cannula 1.0 01/11/18 19:33 36.7 77 20 147/71 (96) 93 Nasal Cannula 2.0 Laboratory Results Last 24 Hours Test 01/11/18 20:50 01/12/18 05:36 01/12/18 07:12 01/12/18 07:35 Bedside Glucose 153 mg/dl 56 mg/dl 97 mg/dl Prothrombin Time 26.4 SECONDS Prothromb Time International Ratio 2.6 Test 01/12/18 11:38 01/12/18 16:13 Bedside Glucose 98 mg/dl 179 mg/dl
[2018-01-12] MEDS: TAMSULOSIN HCL 0.4 MG CAP PO SCH (20:53)
[2018-01-13] VITALS (8 sets, daily range): BP systolic 77–137; BP diastolic 42–75; PULSE 71–77; TEMP 36–36.8; O2SAT 92–97
[2018-01-13 06:17] LABS: HEMATOCRIT 31.9 % (42-52); HEMOGLOBIN 10.3 g/dL (14.0-18.0); MEAN CELL VOLUME 92.7 fL (80-100); MEAN CORPUSCULAR HEMOGLOBIN 29.9 pg (25-34); MEAN CORPUSCULAR HGB CONC 32.3 g/dl (32-36); RED CELL DISTRIBUTION WIDTH CV 15.1 % (11.5-14.5); RED CELL DISTRIBUTION WIDTH SD 50.8 fL (36.4-46.3); WHITE BLOOD COUNT 6.56 K/uL (4.8-10.8)
[2018-01-13 06:20] LABS: MEAN PLATELET VOLUME 9.2 fL (7.4-10.4); PLATELET COUNT 73 K/uL (130-400)
[2018-01-13 06:33] LABS: INR 2.6 (0.9-1.1)
[2018-01-13 06:54] LABS: CALCIUM 7.4 mg/dl (8.5-10.1); CREATININE 1.51 mg/dl (0.60-1.40); POTASSIUM 4.1 mmol/L (3.5-5.1)
[2018-01-13 06:55] LABS: PHOSPHORUS 1.8 mg/dl (2.5-4.9)
[2018-01-13] MEDS: GUAIFENESIN 600 MG TABCR PO SCH ×2 (08:14→21:39)
[2018-01-13] MEDS: MAGNESIUM CHLORIDE 64MG DELAYED REL TAB PO SCH (08:15)
[2018-01-13] MEDS: FINASTERIDE 5 MG TAB PO SCH (08:16)
[2018-01-13] MEDS: CHOLECALCIFEROL 1000 INTER.UNIT TAB PO SCH (08:16)
[2018-01-13] MEDS: PANTOprazole SOD 40 MG TAB PO SCH (08:17)
[2018-01-13] MEDS: INSULIN GLARGINE SOLOSTAR 100 UNITS/ML 3 ML PEN SC SCH (08:19)
[2018-01-13] MEDS: INSULIN ASPART 100 UNITS/ML 3 ML PEN SC SCH ×4 (08:25→21:43)
[2018-01-13] MEDS: WARFARIN SOD 2 MG TAB PO SCH (16:08)
--- NOTE | 2018-01-13 18:30 | Progress Note ---
Medicine Progress Note Date & Time of Visit: Jan 13, 2018 at 14:42. Subjective 87 yo M with dyspnea, found to have influenza, was not initially started on tamiflu as symptoms had been ongoing for about one week at the time. He had become worse with a superimposed MSSA pneumonia. He was placed on antifungals for a short time, then taken off them by ID. Respiratory status continued to improve but slowly. He is not on supplemental oxygen at home but is requiring 1 -2 L here at rest. He also received diuretics for volume overload at one point. Currently, orthostatic hypotension has limited PT sessions. Flomax was reduced from twice daily to once daily, but this has not improved. He has clinically improved today and is less groggy off the Tylenol. He is tolerating p.o. Family is at bedside and are encouraged by his improvement today, including his work with physical therapy. Still coughing but this is improved. Still requiring minimal oxygen supplementation via nasal cannula Objective Last 8 Hrs Date Time Temp Pulse Resp B/P (MAP) Pulse Ox O2 Delivery O2 Flow Rate FiO2 01/13/18 12:03 Nasal Cannula 1.0 01/13/18 12:03 36.5 77 18 129/66 (87) 92 Nasal Cannula 1.0 01/13/18 12:00 Nasal Cannula 1.0 01/13/18 08:00 Nasal Cannula 1.0 01/13/18 08:00 36.6 74 127/65 (85) 01/13/18 07:56 Nasal Cannula 1.0 Physical Exam: GEN: WNWD, in no acute distress, more alert today. Appropriate HEENT: NC/AT, normal sclerae, MMM CARDIO: reg rate, S1/2 heard without m/g/r LUNGS: CTA bilaterally ABD: soft, non-tender, non-distended EXTREMITY: RP and DP palpable 2+ bilat, no LE swelling or edema, extremities are warm and well-perfused NEURO: Cranial nerves II through XII grossly intact, no gross focal deficits MUSC: generalized weakness SKIN: warm and dry Laboratory Results: 01/13/18 05:58 01/13/18 05:58 Test 12/15/17 15:40 12/15/17 16:11 12/15/17 17:51 12/15/17 21:25 Dohle Bodies OCCASIONAL Estimated Average Glucose 252 mg/dl Hemoglobin A1c 10.4 % (4.5-5.6) Total Creatine Kinase 111 U/L (39-308) Creatine Kinase MB 2.9 ng/ml (0.5-3.6) Creatine Kinase MB Ratio 2.6 (0-3.0) Influenza Type A Antigen Neg for Influ A (NEG) Influenza Type B Antigen Neg for Influ B (NEG) Urine Color YELLOW Urine Appearance CLEAR (CLEAR) Urine pH 5.0 (4.5-7.5) Urine Specific [place] 1.020 (1.000-1.030) Urine Protein 1+ (NEG) Urine Glucose (UA) 3+ (NEG) Urine Ketones 2+ (NEG) Urine Occult Blood 3+ (NEG) Urine Nitrite NEG (NEG) Urine Bilirubin NEG (NEG) Urine Urobilinogen NEG (NEG) Urine Leukocyte Esterase NEG (NEG) Urine RBC 5-10 /hpf (0-4) Urine WBC 1-5 /hpf (0-5) Urine Epithelial Cells 20-30 /lpf (0-5) Urine Bacteria NEG (NEG) Urine Hyaline Casts 1-5 /lpf (0-5) Influenza Type A (RT-PCR) POS for Influ A (NEG) Influenza Type B (RT-PCR) Neg for Influ B (NEG) Test 12/18/17 06:08 12/28/17 11:51 01/01/18 05:34 01/01/18 09:11 Random Vancomycin Level 10.2 mcg/ml Bedside Hemoglobin 11.6 g/dl (14.0-18.0) Bedside Hematocrit 34 % (42-52) Bedside Sodium 137 mEq/L (135-144) Bedside Potassium 3.9 mEq/L (3.3-5.0) Globulin 3.7 gm/dl (2.5-4.0) Albumin/Globulin Ratio 0.6 (0.9-2) Chemistry Specimen Hemolysis Blood Gas Sample Site L Brachial Bedside Blood Gas pH (LAB) 7.43 (7.35-7.45) Bedside Blood Gas pCO2 (LAB) 40 mmHg (35-46) Bedside Blood Gas pO2 (LAB) 81 mmHg (80-95) Bedside Blood Gas HCO3 (LAB) 26 meq/L (19-24) Bedside Blood Gas Total CO2 27 mEq/l (24-31) Bedside Blood Gas Base Excess (LAB) 2.0 meq/L (-9-1.8) Bedside Blood Gas O2 Saturation 96.0 % (90-95) Oxygen Delivery Device Cannula Test 01/02/18 13:50 01/03/18 05:40 01/03/18 09:18 01/03/18 13:02 Beta-Hydroxybutyric Acid 3.38 mg/dL (0.2-2.81) Procalcitonin 0.16 ng/ml (0-0.5) Total Bilirubin 0.7 mg/dl (0.2-1) Direct Bilirubin 0.2 mg/dl (0-0.2) Aspartate Amino Transf (AST/SGOT) 21 U/L (15-37) Alanine Aminotransferase (ALT/SGPT) 30 U/L (12-78) Alkaline Phosphatase 91 U/L (45-117) Total Protein 5.3 gm/dl (6.4-8.2) Albumin 2.1 gm/dl (3.4-5.0) Beta-(1,3)-D-Glucan <31 pg/mL Beta-(1,3)-D-Glucan Interpretation NEGATIVE Troponin I < 0.015 ng/ml (0-0.045) Pro-B-Type Natriuretic Peptide 887 pg/ml (0-1800) Mycoplasma pneumoniae IgG Antibody 2.46 (<=0.90) Mycoplasma pneumoniae IgM Antibody 58 U/mL (<770) Aspergillus flavus Antibody Negative (Negative) Aspergillus fumigatus Antibody Negative (Negative) Aspergillus niger Antibody Negative (Negative) Test 01/03/18 18:30 01/05/18 05:34 01/06/18 05:39 01/06/18 11:21 Urine Legionella Antigen NOT DETECTED (NOT DETECTED) Activated Partial Thromboplast Time 39.7 SECONDS (21.0-31.0) Partial Thromboplastin Ratio 1.5 Hypersegmented Polys OCCASIONAL Platelet Estimate DECREASED Arterial Blood pH 7.50 (7.35-7.45) Arterial Blood Partial Pressure CO2 37 mmHg (35-46) Arterial Blood Partial Pressure O2 104 mm/Hg (80-95) Arterial Blood HCO3 28 mmol/L (19-24) Arterial Blood Oxygen Saturation 98.0 % (90-95) Arterial Blood Base Excess 4.8 mEq/L (-9-1.8) Arterial Blood Gas Delivery 3 L Santana Test POS (POS) Test 01/08/18 05:40 01/11/18 06:15 01/12/18 21:28 01/13/18 05:58 Red Blood Cell Morphology Unremarkable Immature Granulocyte % (Auto) 0.3 % White Blood Count 8.63 K/uL (4.8-10.8) Red Blood Count 3.85 M/uL (4.7-6.1) 3.44 M/uL (4.7-6.1) Hemoglobin 11.6 g/dL (14.0-18.0) Hematocrit 35.8 % (42-52) Mean Corpuscular Volume 93.0 fL (80-100) 92.7 fL (80-100) Mean Corpuscular Hemoglobin 30.1 pg (25-34) 29.9 pg (25-34) Mean Corpuscular Hemoglobin Concent 32.4 g/dl (32-36) 32.3 g/dl (32-36) Platelet Count 64 K/uL (130-400) Mean Platelet Volume 9.4 fL (7.4-10.4) 9.2 fL (7.4-10.4) Neutrophils (%) (Auto) 78.9 % Lymphocytes (%) (Auto) 11.4 % Monocytes (%) (Auto) 5.2 % Eosinophils (%) (Auto) 4.1 % Basophils (%) (Auto) 0.1 % Neutrophils # (Auto) 6.81 K/uL (1.4-6.5) Lymphocytes # (Auto) 0.98 K/uL (1.2-3.4) Monocytes # (Auto) 0.45 K/uL (0.11-0.59) Eosinophils # (Auto) 0.35 K/uL (0-0.5) Basophils # (Auto) 0.01 K/uL (0-0.2) Immature Granulocyte # (Auto) 0.03 K/uL (0.00-0.02) Immature Platelet Fraction 5.5 % (0.9-8.3) Vitamin B12 Level 473 pg/mL (211-911) Folate 11.22 ng/mL (>5.38) RDW Standard Deviation 50.8 fL (36.4-46.3) RDW Coefficient of Variation 15.1 % (11.5-14.5) Prothrombin Time 27.2 SECONDS (9.0-12.0) Prothromb Time International Ratio 2.6 (0.9-1.1) Anion Gap 7.0 mmol/L (3-11) Est Creatinine Clear Calc Drug Dose 38.5 ml/min Estimated GFR () 47.8 Estimated GFR (Non- 41.2 BUN/Creatinine Ratio 17.1 (10-20) Calcium Level 7.4 mg/dl (8.5-10.1) Phosphorus Level 1.8 mg/dl (2.5-4.9) Magnesium Level 1.8 mg/dl (1.8-2.4) 25-Hydroxy Vitamin D Total 29.2 ng/ml (30-100) Test 01/13/18 17:07 Bedside Glucose 242 mg/dl (70-99) Date/Time Source Procedure Growth Status 12/15/17 15:55 Blood Blood Culture - Final NO GROWTH Complete 12/31/17 00:00 Nasal MRSA DNA Surveillance Screen - Final Specimen Negative for MRSA by DNA Probe Complete 01/02/18 08:25 Sputum Expectorated Sputum Gram Stain - Final Complete 01/02/18 08:25 Sputum Expectorated Sputum Sputum Culture - Final MODERATE NORMAL NABOR. Complete Last 24 Hours Test 01/12/18 16:13 01/12/18 20:43 01/12/18 21:28 01/13/18 05:58 Bedside Glucose 179 mg/dl 177 mg/dl Immature Platelet Fraction 5.5 % Vitamin B12 Level 473 pg/mL Folate 11.22 ng/mL White Blood Count 6.56 K/uL Red Blood Count 3.44 M/uL Hemoglobin 10.3 g/dL Hematocrit 31.9 % Mean Corpuscular Volume 92.7 fL Mean Corpuscular Hemoglobin 29.9 pg Mean Corpuscular Hemoglobin Concent 32.3 g/dl RDW Standard Deviation 50.8 fL RDW Coefficient of Variation 15.1 % Platelet Count 73 K/uL Mean Platelet Volume 9.2 fL Prothrombin Time 27.2 SECONDS Prothromb Time International Ratio 2.6 Sodium Level 140 mmol/L Potassium Level 4.1 mmol/L Chloride Level 109 mmol/L Carbon Dioxide Level 24 mmol/L Anion Gap 7.0 mmol/L Blood Urea Nitrogen 26 mg/dl Creatinine 1.51 mg/dl Est Creatinine Clear Calc Drug Dose 38.5 ml/min Estimated GFR () 47.8 Estimated GFR (Non- 41.2 BUN/Creatinine Ratio 17.1 Random Glucose 153 mg/dl Calcium Level 7.4 mg/dl Phosphorus Level 1.8 mg/dl Magnesium Level 1.8 mg/dl 25-Hydroxy Vitamin D Total 29.2 ng/ml Test 01/13/18 07:16 01/13/18 08:10 01/13/18 09:41 01/13/18 11:46 Bedside Glucose 139 mg/dl 157 mg/dl 191 mg/dl 140 mg/dl Assessment & Plan 87 yo M with dyspnea, found to have influenza, was not initially started on tamiflu as symptoms had been ongoing for about one week at the time. He had become worse with a superimposed MSSA pneumonia. He was placed on antifungals for a short time, then taken off them by ID. Respiratory status continued to improve but slowly. He is not on supplemental oxygen at home but is requiring 1 -2 L here at rest. He also received diuretics for volume overload at one point. Currently, orthostatic hypotension has limited PT sessions. Flomax was reduced from twice daily to once daily, but this has not improved. He has clinically improved today and is less groggy off the Tylenol. He is tolerating p.o. Family is at bedside and are encouraged by his improvement today, including his work with physical therapy. Still coughing but this is improved. Still requiring minimal oxygen supplementation via nasal cannula 1. Hypoxia secondary to pneumonia as a complication of flu-severe deconditioning also likely contributing. He is completed a course of antibiotics at this point. Continue supportive care. Of note amiodarone was also stopped this admission in case of pulmonary toxicity. Continue current therapy. 2. Severe generalized weakness-secondary to deconditioning from prolonged hospital stay. Improved. Continue PT/OT and continue to push patient out of bed during the day per nursing staff and observed proper day night cycles. Fatigue has improved after stopping scheduled Tylenol yesterday. 3. Orthostatic hypotension-Flomax cut from 0.4 mg twice daily to once daily by cardiology. Diuretics were stopped. Not on diuretics at home. Still has significant orthostatic hypotension which is likely a result of prolonged bedrest and autonomic neuropathy. 1L IVF was given yesterday without much improvement. 4. Type 2 diabetes mellitus-continue Lantus and insulin sliding scale while in hospital. Pharmacy consulted for glycemic management. Hypoglycemic this morning as a result of Lantus; dose was decreased. Appreciate pharmacy recs. 5. CKD stage III-[place] has resolved. The creatinine is at baseline. 6. Thrombocytopenia-improved. Per hematology, likely a result of recent antibiotic use. In setting of DVT that is acute continue Coumadin currently and monitor platelets. If platelets drop in the range of the 30s or if any bleeding begins, consider stopping Coumadin therapy and re-engaging with hematology. 7. Age-indeterminate DVT found on venous ultrasound during this admission (01/03 ). No prior h/o blood clots or leg symptoms. Patient on Coumadin. Per hematology anticoagulate for a minimum of 3 months. 8. History of atrial flutter-rate and rhythm controlled, amiodarone stopped out of concern of pulmonary toxicity. Coumadin on board for stroke prophylaxis. DVT prophylaxis-Coumadin Full code Disposition-continue hospitalization. Plan for [facility] at discharge, likely Wednesday Cristine Real DO [facility] hospitalist Consultants: Kash Laird DO-[facility]-Dalton Leigh MD Current Inpatient Medications: Current Inpatient Medications Medications (Trade) Dose Ordered Sig/Krystal Route Start Time Stop Time Status Last Admin Dose Admin Miscellaneous Information (Consult Glycemic Management Pharmacy) 1 ea UD PRN N/A 12/15/17 18:01 01/14/18 18:00 Al Hydrox/Mg Hydrox/Simethicone (Maalox Max Susp) 15 ml Q4H PRN PO 12/15/17 17:15 01/14/18 17:14 Magnesium Hydroxide (Milk Of Magnesia Susp) 30 ml Q12H PRN PO 12/15/17 17:15 01/14/18 17:14 Ondansetron HCl (Zofran Inj) 4 mg Q6H PRN IV 12/15/17 17:15 01/14/18 17:14 Polyethylene (Miralax Powder Packet) 17 gm DAILY PRN PO 12/15/17 17:15 01/14/18 17:14 Cholecalciferol (Vitamin D Tab) 2,000 inter.unit DAILY PO 12/16/17 09:00 01/15/18 08:59 01/13/18 08:16 2,000 INTER.UNIT Pantoprazole Sodium (Protonix Tab) 40 mg QAM PO 12/16/17 09:00 01/15/18 08:59 01/13/18 08:17 40 MG Ipratropium [place] (Atrovent 0.02% 0.5MG/2.5ML Neb) 0.5 mg Q2H PRN INH 12/15/17 21:15 01/14/18 21:14 12/31/17 23:10 0.5 MG Levalbuterol (Xopenex 1.25MG/ 0.5ML Neb) 1.25 mg Q2H PRN INH 12/15/17 21:15 01/14/18 21:14 12/31/17 23:10 1.25 MG Magnesium Chloride (Slow-Mag Tab) 128 mg DAILY PO 12/17/17 10:45 01/16/18 10:44 01/13/18 08:15 128 MG Guaifenesin (Mucinex Contr Rel Tab) 600 mg Q12 PO 12/21/17 21:00 01/20/18 20:59 01/13/18 08:14 600 MG Miconazole Nitrate (Desenex Powder) 1 appln PRN PRN EXT 12/26/17 03:30 01/25/18 03:29 Finasteride (Proscar Tab) 5 mg QAM PO 12/27/17 09:00 01/26/18 08:59 01/13/18 08:16 5 MG Glucose (Glucose 40% Gel) 15-30 GRAMS 15 GRAMS... UD PRN PO 12/27/17 16:45 01/26/18 16:44 Glucose (Glucose Chew Tab) 4-8 Tablets 4 Tabl... UD PRN PO 12/27/17 16:45 01/26/18 16:44 12/27/17 16:46 4 TABS Dextrose (Dextrose 50% 50ML Syringe) 25-50ML OF 50% DW IV FOR... UD PRN IV 12/27/17 16:45 01/26/18 16:44 Glucagon (Glucagon Inj) 1 mg UD PRN SQ 12/27/17 16:45 01/26/18 16:44 Insulin Aspart (novoLOG ASPART) SLIDING SCALE 0645 SC 01/05/18 06:45 02/04/18 06:44 01/13/18 08:25 5 UNITS Tamsulosin HCl (Flomax Cap) 0.4 mg HS PO 01/07/18 21:00 02/06/18 20:59 01/12/18 20:53 0.4 MG Insulin Aspart (novoLOG ASPART) SLIDING SCALE 1100,1630,2100 SC 01/07/18 11:00 02/06/18 10:59 01/13/18 12:24 1 UNITS Warfarin Sodium (Coumadin Tab) 2 mg DAILY@1600 PO 01/08/18 17:00 02/07/18 16:59 01/12/18 16:05 2 MG Ipratropium [place] (Atrovent 0.02% 0.5MG/2.5ML Neb) 0.5 mg Q4 PRN INH 01/10/18 10:30 02/09/18 10:29 Levalbuterol (Xopenex 1.25MG/ 0.5ML Neb) 1.25 mg Q4 PRN INH 01/10/18 10:30 02/09/18 10:29 Insulin Glargine (Lantus Solostar Pen) SEE PROTOCOL TEXT QAM SC 01/12/18 09:00 02/11/18 08:59 01/13/18 08:19 20 UNITS Acetaminophen (Tylenol Tab) 325 mg Q4H PRN PO 01/12/18 16:15 02/11/18 16:14
[2018-01-13] MEDS ORDERED: POT PHOSPHATE MONOBASIC W/ SOD TAB PO ONE (19:15)
--- NOTE | 2018-01-13 19:27 | Hematology/Oncology Prog Note ---
Hematology/Onc Progress Note Date of Service Jan 13, 2018. Subjective I saw him at bedside, he was sitting comfortably outside in the chair, family members were also at bedside, he says that he is feeling somewhat better, no new bleeding complications, no increasing leg edema, I reviewed his blood workup done today, platelet count has improved to around 73,000 , stable white blood cell count, slightly low hemoglobin noted. -Vitamin B12--> 473, Folic acid 11.2 (01/12/2018) -immature platelet fraction--> 5.5 Slight improvement of platelet count noted, I think in the next few days platelet count is likely to improve, he will continue anticoagulant treatment for underlying cardiac arrhythmia as suggested by tooth cutter pinion. Vital Signs Vital Signs Past 12 Hours Date Time Temp Pulse Resp B/P (MAP) Pulse Ox O2 Delivery O2 Flow Rate FiO2 01/13/18 19:06 36.4 75 16 134/75 (94) 97 Nasal Cannula 1.5 01/13/18 17:44 137/68 (91) 97/54 (68) 77/42 (54) 01/13/18 16:21 Nasal Cannula 1.0 01/13/18 15:27 36.0 77 20 127/69 (88) 96 Nasal Cannula 2.0 01/13/18 12:03 Nasal Cannula 1.0 01/13/18 12:03 36.5 77 18 129/66 (87) 92 Nasal Cannula 1.0 01/13/18 12:00 Nasal Cannula 1.0 01/13/18 08:00 Nasal Cannula 1.0 01/13/18 08:00 36.6 74 127/65 (85) 01/13/18 07:56 Nasal Cannula 1.0
[2018-01-13] MEDS: POT PHOSPHATE MONOBASIC W/ SOD TAB PO SCH (21:39)
[2018-01-13] MEDS: TAMSULOSIN HCL 0.4 MG CAP PO SCH (21:39)
[2018-01-14 06:35] LABS: HEMATOCRIT 31.2 % (42-52); HEMOGLOBIN 10.2 g/dL (14.0-18.0); MEAN CORPUSCULAR HEMOGLOBIN 29.7 pg (25-34); MEAN CORPUSCULAR HGB CONC 32.7 g/dl (32-36); RED CELL DISTRIBUTION WIDTH CV 15.1 % (11.5-14.5); WHITE BLOOD COUNT 7.72 K/uL (4.8-10.8)
[2018-01-14 06:44] LABS: MEAN PLATELET VOLUME 9.2 fL (7.4-10.4); PLATELET COUNT 83 K/uL (130-400)
[2018-01-14 07:16] LABS: CALCIUM 7.8 mg/dl (8.5-10.1); CREATININE 1.37 mg/dl (0.60-1.40); POTASSIUM 3.8 mmol/L (3.5-5.1)
[2018-01-14 07:17] LABS: PHOSPHORUS 2.3 mg/dl (2.5-4.9)
[2018-01-14 07:50] VITALS: BP 108/62; PULSE 69; TEMP 36.8; O2SAT 95
[2018-01-14] MEDS: PANTOprazole SOD 40 MG TAB PO SCH (09:18)
[2018-01-14] MEDS: CHOLECALCIFEROL 1000 INTER.UNIT TAB PO SCH (09:18)
[2018-01-14] MEDS: MAGNESIUM CHLORIDE 64MG DELAYED REL TAB PO SCH (09:18)
[2018-01-14] MEDS: POT PHOSPHATE MONOBASIC W/ SOD TAB PO SCH ×4 (09:18→20:57)
[2018-01-14] MEDS: GUAIFENESIN 600 MG TABCR PO SCH ×2 (09:18→20:57)
[2018-01-14] MEDS: FINASTERIDE 5 MG TAB PO SCH (09:18)
[2018-01-14] MEDS: INSULIN GLARGINE SOLOSTAR 100 UNITS/ML 3 ML PEN SC SCH (09:21)
[2018-01-14] MEDS: INSULIN ASPART 100 UNITS/ML 3 ML PEN SC SCH ×4 (09:21→20:58)
--- NOTE | 2018-01-14 09:36 | Pharmacy Progress Note ---
Glycemic: Assessment & Plan Date of Service Jan 14, 2018. Assessment & Plan The patient is currently receiving 32 units of insulin per day. BSGs ranging 107 - 242 mg/dl over the past 24hrs. Patient has been consistently difficult to manage, frequently with labile blood sugars. Will continue with current plan as stated below. * Basal insulin: Lantus 18-20 units every 24 hours based on BSG * Correctional Insulin: Novolog Correction per scale before breakfast Goal Range: Low 120 mg/dL - High 160 mg/dL Correction Factor: 15 mg/dL/unit * Prandial insulin: Per carb ratio of 1 unit per 6 grams CHO consumed * Correctional Insulin: Novolog Correction per scale ACHS, except breakfast Goal Range: Low 120 mg/dL - High 160 mg/dL Correction Factor: 30 mg/dL/unit * Prandial insulin: Per carb ratio of 1 unit per 13 grams CHO consumed BSGs continue to improve, no changes needed to inpatient regimen at this time. Pharmacy will continue to monitor patient daily and write orders per [facility] inpatient glycemic control protocol. Thanks. * Please note that the plan above was derived based on current level of insulin resistance and hospital stress. These recommendations are appropriate for inpatient admission only. Plan of care upon discharge will need to be reassessed to avoid potential outpatient hypo/hyperglycemia.
[2018-01-14 14:49] VITALS: BP 112/70; PULSE 78; TEMP 36.4; O2SAT 97
--- NOTE | 2018-01-14 15:11 | Cardiology Follow-Up ---
Subjective General Date of Service: Jan 14, 2018. Chief Complaint: Follow-up lightheadedness Pt evaluation today including: conversation w/ patient, conversation w/ family , physical exam, chart review, lab review, review of studies, conversation w/ lean consultant, review of inpatient medication list History of Present Illness The patient is a 87 year old male seen in follow-up. Patient is feeling better. Creatinine improved. Denies dizziness, syncope, or near syncope. Denies chest pain or shortness of breath. Spending more time out of bed. Allergies Coded Allergies: No Known Allergies (Unverified , 05/19/13) Social History Smoking Status: Former Smoker Hx Tobacco Use In Past Year?: No Hx Alcohol Use - Type And Amou: Yes (about 1 beer per month) Hx Substance Use - Type And Am: No Problem List Medical Problems: (1) Hyperglycemia Status: Acute (2) Hypoxia Status: Acute (3) Renal insufficiency Status: Acute Review of Systems Respiratory: + cough, No sputum, No wheezing, No shortness of breath, No dyspnea on exertion, No dyspnea at rest, No hemoptysis Cardiac: No chest pain, No orthopnea, No PND, No edema, No claudication, No palpitations Physical Exam Vital Signs Last Vital Signs Documentation Date Time Temp Pulse Resp B/P (MAP) Pulse Ox O2 Delivery O2 Flow Rate FiO2 01/14/18 14:49 36.4 78 20 112/70 (84) 97 01/14/18 08:00 Nasal Cannula 1.0 Physical Exam Constitutional: Level of Distress: NAD, chronically ill Ambulation: ambulating normally Head: normocephalic, atraumatic Neck: supple, trachea midline Lungs: Auscultation: breath sounds normal, no wheezing, no rales/crackles, no rhonchi Cardiovascular: Heart Auscultation: RRR, no murmurs Abdomen: Bowel Sounds: normal Inspection & Palpation: soft, non-distended, no tenderness, guarding & rebound Musculoskeletal: poor tone Extremities: no edema Neurologic: Gait & Station: pertinent finding (No focal deficits) Cranial Nerves: grossly intact Assessment and Plan Assessment and Plan Impression: 1. Orthostatic hypotension 2. History of atrial dysrhythmias and tachycardia induced cardiomyopathy -Normal LVEF and RVEF per erpeat echo this admission 3. Admission for acute hypoxemic respiratory failure due to influenza, superimposed pneumonia 4. DVT 5. Deconditioning 6. Acute renal insufficiency secondary to volume depletion -creatinine improving Recommendations: Encourage oral hydration. Continue flomax once daily. PT/OT. Cardiology will sign off. Please call with questions. Laboratory Results Last 24 Hours Test 01/13/18 17:07 01/13/18 21:36 01/14/18 06:16 01/14/18 07:29 Bedside Glucose 242 mg/dl 157 mg/dl 108 mg/dl White Blood Count 7.72 K/uL Red Blood Count 3.43 M/uL Hemoglobin 10.2 g/dL Hematocrit 31.2 % Mean Corpuscular Volume 91.0 fL Mean Corpuscular Hemoglobin 29.7 pg Mean Corpuscular Hemoglobin Concent 32.7 g/dl RDW Standard Deviation 50.0 fL RDW Coefficient of Variation 15.1 % Platelet Count 83 K/uL Mean Platelet Volume 9.2 fL Platelet Estimate DECREASED Sodium Level 140 mmol/L Potassium Level 3.8 mmol/L Chloride Level 109 mmol/L Carbon Dioxide Level 24 mmol/L Anion Gap 7.0 mmol/L Blood Urea Nitrogen 24 mg/dl Creatinine 1.37 mg/dl Est Creatinine Clear Calc Drug Dose 42.5 ml/min Estimated GFR () 53.7 Estimated GFR (Non- 46.4 BUN/Creatinine Ratio 17.2 Random Glucose 107 mg/dl Calcium Level 7.8 mg/dl Phosphorus Level 2.3 mg/dl Magnesium Level 1.9 mg/dl Test 01/14/18 11:34 Bedside Glucose 184 mg/dl
[2018-01-14] MEDS: WARFARIN SOD 2 MG TAB PO SCH (17:30)
--- NOTE | 2018-01-14 18:01 | Progress Note ---
Medicine Progress Note Date & Time of Visit: Jan 14, 2018 at 1300. Subjective 87 yo M with dyspnea, found to have influenza, was not initially started on tamiflu as symptoms had been ongoing for about one week at the time. He had become worse with a superimposed MSSA pneumonia. He was placed on antifungals for a short time, then taken off them by ID. Respiratory status continued to improve but slowly. He is not on supplemental oxygen at home but is requiring 1 -2 L here at rest. He also received diuretics for volume overload at one point. Currently, orthostatic hypotension has limited PT sessions but his ability to move his improving. Flomax was reduced from twice daily to once daily, but this has not improved orthostatic hypotension. He is tolerating p.o. Objective Last 8 Hrs Date Time Temp Pulse Resp B/P (MAP) Pulse Ox O2 Delivery O2 Flow Rate FiO2 01/14/18 15:50 Nasal Cannula 1.0 01/14/18 14:49 36.4 78 20 112/70 (84) 97 Physical Exam: GEN: WNWD, in no acute distress, alert and appropriate. Flat, depressed affect. HEENT: NC/AT, normal sclerae, MMM CARDIO: reg rate, S1/2 heard without m/g/r LUNGS: CTA bilaterally ABD: soft, non-tender, non-distended EXTREMITY: RP and DP palpable 2+ bilat, no LE swelling or edema, extremities are warm and well-perfused NEURO: Cranial nerves II through XII grossly intact, no gross focal deficits MUSC: generalized weakness SKIN: warm and dry Laboratory Results: 01/14/18 06:16 01/14/18 06:16 Test 12/15/17 15:40 12/15/17 16:11 12/15/17 17:51 12/15/17 21:25 Dohle Bodies OCCASIONAL Estimated Average Glucose 252 mg/dl Hemoglobin A1c 10.4 % (4.5-5.6) Total Creatine Kinase 111 U/L (39-308) Creatine Kinase MB 2.9 ng/ml (0.5-3.6) Creatine Kinase MB Ratio 2.6 (0-3.0) Influenza Type A Antigen Neg for Influ A (NEG) Influenza Type B Antigen Neg for Influ B (NEG) Urine Color YELLOW Urine Appearance CLEAR (CLEAR) Urine pH 5.0 (4.5-7.5) Urine Specific [place] 1.020 (1.000-1.030) Urine Protein 1+ (NEG) Urine Glucose (UA) 3+ (NEG) Urine Ketones 2+ (NEG) Urine Occult Blood 3+ (NEG) Urine Nitrite NEG (NEG) Urine Bilirubin NEG (NEG) Urine Urobilinogen NEG (NEG) Urine Leukocyte Esterase NEG (NEG) Urine RBC 5-10 /hpf (0-4) Urine WBC 1-5 /hpf (0-5) Urine Epithelial Cells 20-30 /lpf (0-5) Urine Bacteria NEG (NEG) Urine Hyaline Casts 1-5 /lpf (0-5) Influenza Type A (RT-PCR) POS for Influ A (NEG) Influenza Type B (RT-PCR) Neg for Influ B (NEG) Test 12/18/17 06:08 12/28/17 11:51 01/01/18 05:34 01/01/18 09:11 Random Vancomycin Level 10.2 mcg/ml Bedside Hemoglobin 11.6 g/dl (14.0-18.0) Bedside Hematocrit 34 % (42-52) Bedside Sodium 137 mEq/L (135-144) Bedside Potassium 3.9 mEq/L (3.3-5.0) Globulin 3.7 gm/dl (2.5-4.0) Albumin/Globulin Ratio 0.6 (0.9-2) Chemistry Specimen Hemolysis Blood Gas Sample Site L Brachial Bedside Blood Gas pH (LAB) 7.43 (7.35-7.45) Bedside Blood Gas pCO2 (LAB) 40 mmHg (35-46) Bedside Blood Gas pO2 (LAB) 81 mmHg (80-95) Bedside Blood Gas HCO3 (LAB) 26 meq/L (19-24) Bedside Blood Gas Total CO2 27 mEq/l (24-31) Bedside Blood Gas Base Excess (LAB) 2.0 meq/L (-9-1.8) Bedside Blood Gas O2 Saturation 96.0 % (90-95) Oxygen Delivery Device Cannula Test 01/02/18 13:50 01/03/18 05:40 01/03/18 09:18 01/03/18 13:02 Beta-Hydroxybutyric Acid 3.38 mg/dL (0.2-2.81) Procalcitonin 0.16 ng/ml (0-0.5) Total Bilirubin 0.7 mg/dl (0.2-1) Direct Bilirubin 0.2 mg/dl (0-0.2) Aspartate Amino Transf (AST/SGOT) 21 U/L (15-37) Alanine Aminotransferase (ALT/SGPT) 30 U/L (12-78) Alkaline Phosphatase 91 U/L (45-117) Total Protein 5.3 gm/dl (6.4-8.2) Albumin 2.1 gm/dl (3.4-5.0) Beta-(1,3)-D-Glucan <31 pg/mL Beta-(1,3)-D-Glucan Interpretation NEGATIVE Troponin I < 0.015 ng/ml (0-0.045) Pro-B-Type Natriuretic Peptide 887 pg/ml (0-1800) Mycoplasma pneumoniae IgG Antibody 2.46 (<=0.90) Mycoplasma pneumoniae IgM Antibody 58 U/mL (<770) Aspergillus flavus Antibody Negative (Negative) Aspergillus fumigatus Antibody Negative (Negative) Aspergillus niger Antibody Negative (Negative) Test 01/03/18 18:30 01/05/18 05:34 01/06/18 05:39 01/06/18 11:21 Urine Legionella Antigen NOT DETECTED (NOT DETECTED) Activated Partial Thromboplast Time 39.7 SECONDS (21.0-31.0) Partial Thromboplastin Ratio 1.5 Hypersegmented Polys OCCASIONAL Arterial Blood pH 7.50 (7.35-7.45) Arterial Blood Partial Pressure CO2 37 mmHg (35-46) Arterial Blood Partial Pressure O2 104 mm/Hg (80-95) Arterial Blood HCO3 28 mmol/L (19-24) Arterial Blood Oxygen Saturation 98.0 % (90-95) Arterial Blood Base Excess 4.8 mEq/L (-9-1.8) Arterial Blood Gas Delivery 3 L Santana Test POS (POS) Test 01/08/18 05:40 01/11/18 06:15 01/12/18 21:28 01/13/18 05:58 Red Blood Cell Morphology Unremarkable Immature Granulocyte % (Auto) 0.3 % White Blood Count 8.63 K/uL (4.8-10.8) Red Blood Count 3.85 M/uL (4.7-6.1) Hemoglobin 11.6 g/dL (14.0-18.0) Hematocrit 35.8 % (42-52) Mean Corpuscular Volume 93.0 fL (80-100) Mean Corpuscular Hemoglobin 30.1 pg (25-34) Mean Corpuscular Hemoglobin Concent 32.4 g/dl (32-36) Platelet Count 64 K/uL (130-400) Mean Platelet Volume 9.4 fL (7.4-10.4) Neutrophils (%) (Auto) 78.9 % Lymphocytes (%) (Auto) 11.4 % Monocytes (%) (Auto) 5.2 % Eosinophils (%) (Auto) 4.1 % Basophils (%) (Auto) 0.1 % Neutrophils # (Auto) 6.81 K/uL (1.4-6.5) Lymphocytes # (Auto) 0.98 K/uL (1.2-3.4) Monocytes # (Auto) 0.45 K/uL (0.11-0.59) Eosinophils # (Auto) 0.35 K/uL (0-0.5) Basophils # (Auto) 0.01 K/uL (0-0.2) Immature Granulocyte # (Auto) 0.03 K/uL (0.00-0.02) Immature Platelet Fraction 5.5 % (0.9-8.3) Vitamin B12 Level 473 pg/mL (211-911) Folate 11.22 ng/mL (>5.38) Prothrombin Time 27.2 SECONDS (9.0-12.0) Prothromb Time International Ratio 2.6 (0.9-1.1) 25-Hydroxy Vitamin D Total 29.2 ng/ml (30-100) Test 01/14/18 06:16 01/14/18 16:18 Red Blood Count 3.43 M/uL (4.7-6.1) Mean Corpuscular Volume 91.0 fL (80-100) Mean Corpuscular Hemoglobin 29.7 pg (25-34) Mean Corpuscular Hemoglobin Concent 32.7 g/dl (32-36) RDW Standard Deviation 50.0 fL (36.4-46.3) RDW Coefficient of Variation 15.1 % (11.5-14.5) Mean Platelet Volume 9.2 fL (7.4-10.4) Platelet Estimate DECREASED Anion Gap 7.0 mmol/L (3-11) Est Creatinine Clear Calc Drug Dose 42.5 ml/min Estimated GFR () 53.7 Estimated GFR (Non- 46.4 BUN/Creatinine Ratio 17.2 (10-20) Calcium Level 7.8 mg/dl (8.5-10.1) Phosphorus Level 2.3 mg/dl (2.5-4.9) Magnesium Level 1.9 mg/dl (1.8-2.4) Bedside Glucose 230 mg/dl (70-99) Date/Time Source Procedure Growth Status 12/15/17 15:55 Blood Blood Culture - Final NO GROWTH Complete 12/31/17 00:00 Nasal MRSA DNA Surveillance Screen - Final Specimen Negative for MRSA by DNA Probe Complete 01/02/18 08:25 Sputum Expectorated Sputum Gram Stain - Final Complete 01/02/18 08:25 Sputum Expectorated Sputum Sputum Culture - Final MODERATE NORMAL NABOR. Complete Last 24 Hours Test 01/13/18 21:36 01/14/18 06:16 01/14/18 07:29 01/14/18 11:34 Bedside Glucose 157 mg/dl 108 mg/dl 184 mg/dl White Blood Count 7.72 K/uL Red Blood Count 3.43 M/uL Hemoglobin 10.2 g/dL Hematocrit 31.2 % Mean Corpuscular Volume 91.0 fL Mean Corpuscular Hemoglobin 29.7 pg Mean Corpuscular Hemoglobin Concent 32.7 g/dl RDW Standard Deviation 50.0 fL RDW Coefficient of Variation 15.1 % Platelet Count 83 K/uL Mean Platelet Volume 9.2 fL Platelet Estimate DECREASED Sodium Level 140 mmol/L Potassium Level 3.8 mmol/L Chloride Level 109 mmol/L Carbon Dioxide Level 24 mmol/L Anion Gap 7.0 mmol/L Blood Urea Nitrogen 24 mg/dl Creatinine 1.37 mg/dl Est Creatinine Clear Calc Drug Dose 42.5 ml/min Estimated GFR () 53.7 Estimated GFR (Non- 46.4 BUN/Creatinine Ratio 17.2 Random Glucose 107 mg/dl Calcium Level 7.8 mg/dl Phosphorus Level 2.3 mg/dl Magnesium Level 1.9 mg/dl Test 01/14/18 16:18 Bedside Glucose 230 mg/dl Assessment & Plan 87 yo M with dyspnea, found to have influenza, was not initially started on tamiflu as symptoms had been ongoing for about one week at the time. He had become worse with a superimposed MSSA pneumonia. He was placed on antifungals for a short time, then taken off them by ID. Respiratory status continued to improve but slowly. He is not on supplemental oxygen at home but is requiring 1 -2 L here at rest. He also received diuretics for volume overload at one point. Currently, orthostatic hypotension has limited PT sessions but his ability to move his improving. Flomax was reduced from twice daily to once daily, but this has not improved orthostatic hypotension. He is tolerating p.o. 1. Hypoxia initially secondary to pneumonia as a complication of flu, however, now more likely related to severe deconditioning. He is completed a course of antibiotics at this point. Continue supportive care. Of note amiodarone was also stopped this admission in case of pulmonary toxicity. Continue current therapy. Suspect that his movement capabilities increase he will come off the oxygen. 2. Severe generalized weakness-secondary to deconditioning from prolonged hospital stay. Improving. Continue PT/OT and continue to push patient to move during the day per nursing staff and observed proper day night cycles. 3. Orthostatic hypotension-Flomax cut from 0.4 mg twice daily to once daily by cardiology. Diuretics were stopped. Not on diuretics at home. Still has significant orthostatic hypotension which is likely a result of prolonged bedrest and autonomic neuropathy. Per cardiology hold any fludrocortisone at this time and continue to encourage oral intake. 4. Type 2 diabetes mellitus-continue Lantus and insulin sliding scale while in hospital. Pharmacy consulted for glycemic management. Appreciate recommendations 5. CKD stage III-[place] has resolved. The creatinine is at baseline. Renally dose meds as appropriate 6. Thrombocytopenia-improving. Per hematology, likely a result of recent antibiotic use. In setting of DVT that is acute continue Coumadin currently and monitor platelets. If platelets drop in the range of the 30s or if any bleeding begins, consider stopping Coumadin therapy and re-engaging with hematology. 7. Age-indeterminate DVT found on venous ultrasound during this admission (01/03 ). No prior h/o blood clots or leg symptoms. Patient on Coumadin. Per hematology anticoagulate for a minimum of 3 months. 8. History of atrial flutter-rate and rhythm controlled, amiodarone stopped out of concern of pulmonary toxicity. Coumadin on board for stroke prophylaxis. DVT prophylaxis-Coumadin Full code Disposition-continue hospitalization. Plan for [facility] at discharge, likely Wednesday Cristine Real DO [facility] hospitalist Consultants: Kash Laird, DO-[facility]-Dalton Leigh MD Current Inpatient Medications: Current Inpatient Medications Medications (Trade) Dose Ordered Sig/Krystal Route Start Time Stop Time Status Last Admin Dose Admin Miscellaneous Information (Consult Glycemic Management Pharmacy) 1 ea UD PRN N/A 12/15/17 18:01 01/14/18 18:00 Cholecalciferol (Vitamin D Tab) 2,000 inter.unit DAILY PO 12/16/17 09:00 01/15/18 08:59 01/14/18 09:18 2,000 INTER.UNIT Pantoprazole Sodium (Protonix Tab) 40 mg QAM PO 12/16/17 09:00 01/15/18 08:59 01/14/18 09:18 40 MG Ipratropium [place] (Atrovent 0.02% 0.5MG/2.5ML Neb) 0.5 mg Q2H PRN INH 12/15/17 21:15 01/14/18 21:14 12/31/17 23:10 0.5 MG Levalbuterol (Xopenex 1.25MG/ 0.5ML Neb) 1.25 mg Q2H PRN INH 12/15/17 21:15 01/14/18 21:14 12/31/17 23:10 1.25 MG Magnesium Chloride (Slow-Mag Tab) 128 mg DAILY PO 12/17/17 10:45 01/16/18 10:44 01/14/18 09:18 128 MG Guaifenesin (Mucinex Contr Rel Tab) 600 mg Q12 PO 12/21/17 21:00 01/20/18 20:59 01/14/18 09:18 600 MG Miconazole Nitrate (Desenex Powder) 1 appln PRN PRN EXT 12/26/17 03:30 01/25/18 03:29 Finasteride (Proscar Tab) 5 mg QAM PO 12/27/17 09:00 01/26/18 08:59 01/14/18 09:18 5 MG Glucose (Glucose 40% Gel) 15-30 GRAMS 15 GRAMS... UD PRN PO 12/27/17 16:45 01/26/18 16:44 Glucose (Glucose Chew Tab) 4-8 Tablets 4 Tabl... UD PRN PO 12/27/17 16:45 01/26/18 16:44 12/27/17 16:46 4 TABS Dextrose (Dextrose 50% 50ML Syringe) 25-50ML OF 50% DW IV FOR... UD PRN IV 12/27/17 16:45 01/26/18 16:44 Glucagon (Glucagon Inj) 1 mg UD PRN SQ 12/27/17 16:45 01/26/18 16:44 Insulin Aspart (novoLOG ASPART) SLIDING SCALE 0645 SC 01/05/18 06:45 02/04/18 06:44 01/14/18 09:21 3 UNITS Tamsulosin HCl (Flomax Cap) 0.4 mg HS PO 01/07/18 21:00 02/06/18 20:59 01/13/18 21:39 0.4 MG Insulin Aspart (novoLOG ASPART) SLIDING SCALE 1100,1630,2100 SC 01/07/18 11:00 02/06/18 10:59 01/14/18 17:35 8 UNITS Warfarin Sodium (Coumadin Tab) 2 mg DAILY@1600 PO 01/08/18 17:00 02/07/18 16:59 01/14/18 17:30 2 MG Ipratropium [place] (Atrovent 0.02% 0.5MG/2.5ML Neb) 0.5 mg Q4 PRN INH 01/10/18 10:30 02/09/18 10:29 Levalbuterol (Xopenex 1.25MG/ 0.5ML Neb) 1.25 mg Q4 PRN INH 01/10/18 10:30 02/09/18 10:29 Insulin Glargine (Lantus Solostar Pen) SEE PROTOCOL TEXT QAM SC 01/12/18 09:00 02/11/18 08:59 01/14/18 09:21 20 UNITS Acetaminophen (Tylenol Tab) 325 mg Q4H PRN PO 01/12/18 16:15 02/11/18 16:14 Potassium/ Phosphorus/Sodium (Phospha 250 Neutral 155-852-130 Mg) 1 tab QID PO 01/13/18 21:00 02/12/18 20:59 01/14/18 17:31 1 TAB
[2018-01-14] MEDS: TAMSULOSIN HCL 0.4 MG CAP PO SCH (20:57)
[2018-01-15] VITALS (8 sets, daily range): BP systolic 94–136; BP diastolic 58–70; PULSE 73–76; TEMP 36.6–36.9; O2SAT 94–97
[2018-01-15] MEDS: INSULIN ASPART 100 UNITS/ML 3 ML PEN SC SCH ×4 (06:45→21:04)
[2018-01-15 08:50] LABS: INR 2.8 (0.9-1.1)
[2018-01-15] MEDS: POT PHOSPHATE MONOBASIC W/ SOD TAB PO SCH ×4 (08:57→20:58)
[2018-01-15] MEDS: MAGNESIUM CHLORIDE 64MG DELAYED REL TAB PO SCH (08:57)
[2018-01-15] MEDS: FINASTERIDE 5 MG TAB PO SCH (08:57)
[2018-01-15] MEDS: GUAIFENESIN 600 MG TABCR PO SCH ×2 (08:57→20:59)
[2018-01-15] MEDS: INSULIN GLARGINE SOLOSTAR 100 UNITS/ML 3 ML PEN SC SCH (09:03)
--- NOTE | 2018-01-15 09:25 | Pharmacy Progress Note ---
Pharmacy Glycemic Short Note 2 Date of Service Jan 15, 2018. OUTPATIENT ANTIDIABETIC REGIMEN: * Lantus 22 units SQ daily at dinner * HbA1c: 10.4% (12/15/17) ASSESSMENT: 01/15/18 * Patient received 37 units of insulin yesterday * BSGs have ranged from 107-230 mg/dL * Postprandial BSGs were elevated yesterday most likely due to late administration of lunch Novolog since patient was at PT * BSGs were fairly stable the day prior so I hesitate to make adjustments until we see a trend PLAN FOR INPATIENT GLYCEMIC CONTROL: * Basal insulin - no change * Lantus 20 units once daily * Lantus 18 units once daily (for BSG < 100) * Bolus insulin - no change * Novolog ACHS * Correction Factor: 15 mg/dL/unit with breakfast, 30 mg/dL/unit with lunch, dinner and HS * Carbohydrate ratio of 1 unit per 6 grams of carbs consumed with breakfast, 1 unit per 13 with lunch, dinner and HS * Goal range: 120-160 mg/dL for all Novolog times PLAN FOR DISCHARGE: * For rehab facility: * Lantus 20 units once daily * Novolog per sliding scale ACHS (CF of 30 mg/dL/unit) * Novolog 4 units with each meal * For discharge after rehab facility: * Lantus 22 units once daily with evening meal * ADD Novolog 8 units daily with dinner * Can consider adding a GLP-1 (eg. Trulicity 0.75 mg once weekly or Victoza 0.6 mg daily initially) in place of the Novolog but I'm not sure what his insurance will cover
[2018-01-15] MEDS: WARFARIN SOD 2 MG TAB PO SCH (16:42)
--- NOTE | 2018-01-15 17:04 | Progress Note ---
Internal Med Progress Note Date of Service: Jan 15, 2018. Provider Documentation: SUBJECTIVE: denies pain eating fine seems somewhat low in spirits no cough moving bowels ok denies any complaints OBJECTIVE: Vital Signs-as noted below Exam: General-alert and oriented. ENT-Normal hearing Neck-no neck masses Lungs-cta b/l no wheezing no crackles present Heart-S1 and S2 heard regular rate and rhythm no murmurs Abdomen-Soft bowel sounds present non tender no distension Extremities-no edema no erythema Neuro-alert and awake moves extremities non focal Lab data as noted below. ASSESSMENT & PLAN: 87M presented with sob and found to have Influenza A. An developed superimposed pneumonia. Sputum cx MSSA. treated with multiple abx. Ct was showing increased infiltrates and was also placed on antifungals but as fungal studies negative it was stopped. Also received diuretics for volume overload. Slowly Resp status improved. But very much deconditioned. requires rehab placement. Currently having orthostatic hypotension limiting pt/ot. Cardiology cut back on Flomax to once daily and stopped diuretic(patient was not on diuretic at home as per epic) .Still somewhat orthostatic today. received gentle fluids But still orthostatic. To hold stating on fludrocortisone as per cardiology. 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 continue pt/ot and monitor ACUTE HYPOXEMIC RESPIRATORY FAILURE- Presented with SOB /cough for 1 week and noted to have spo2 86 in RA , improved with supplemental 02 Secondary to pneumonia FLU was positive but was not treated as he had symptoms > 1 week later developed pneumonia sputum cx growing MSSA was transferred to ICU as repeat ct chest showed worsening infiltration amiodarone was stopped for possible amiodarone toxicity received Lasix for fluid overload Appreciate pulmonary and critical care inputs received broad spectrum abx Was on voriconazole - stopped by pulmonary consulted ID for further recommendations on abx improving slowly. still weak and deconditioned NEEDS TWO STEP PRIOR TO DISCHARGED HOME To continue pt/ot BILATERAL MULTILOBAR PNEUMONIA pneumonia in setting FLU Started on IV Zosyn ( for pseudomonal coverage in setting of Type 2 DM / hyperglycemia ) Blood CULTURE-NEGATIVE and sputum culture :Staph Aureus.MSSA Received Vancomycin ,Changed to Ceftriaxone and Doxycycline received Zyvox and Zosyn Received Solumedrol and Prednisone-discontinued on 01/02/18 Pulmonary consulted-appreciate input received multiple abx off of abx currently pt/ot 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 Amiodarone stopped but may be in system for couple of months Cardiology is on board to followup with cardiology Orthostatic hypotension presyncope Flomax dose cut back to once daily by cardiology torsemide stopped received gentle fluids still orthostatic will d/w Cardiology Deconditioning from prolonged hospital stay orthostatic hypotension HYPERGLYCEMIA WITH TYPE 2 DM On Lantus 22 U HS Started on IV insulin protocol currently on Lantus and iss Pharmacy consulted for glycemic management Hb A1c 9.8 on 09/2017 Hb A1c 10.4 now 190/88/151/203 close monitor OKSANA ON CKD STAGE 3 due to above received fluids held torsemide baseline cr 1.7 to 1.8 cr 1.3 on 01/14/18 continue to monitor HYPONATREMIA : Due to hyperglycemia received fluids follow PRP -normalized Thrombocytopenia Abx induced? 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 as above FULL CODE DISPOSITION ; monitor in tele PT/OT Medicine follow up with Dr Ward plan for rehab when more stable Vital Signs: Date Time Temp Pulse Resp B/P (MAP) Pulse Ox O2 Delivery O2 Flow Rate FiO2 01/15/18 15:12 36.7 73 20 105/60 (75) 97 01/15/18 11:32 36.8 74 16 94/58 (70) 94 Room Air 01/15/18 08:00 Nasal Cannula 1.0 01/15/18 07:12 36.6 75 20 117/66 (83) 97 Nasal Cannula 2.0 01/15/18 00:15 96 Nasal Cannula 2.0 01/15/18 00:06 36.9 75 19 109/66 (80) 96 Nasal Cannula 2.0 01/14/18 19:56 Nasal Cannula 1.0 Lab Results: Results Past 24 Hours Test 01/14/18 20:24 01/15/18 06:00 01/15/18 07:25 01/15/18 08:31 Range/Units Bedside Glucose 190 88 70-99 mg/dl Urine Color DK YELLOW Urine Appearance CLEAR CLEAR Urine pH 5.0 4.5-7.5 Urine Specific [place] 1.027 1.000-1.030 Urine Protein 1+ NEG Urine Glucose (UA) 2+ NEG Urine Ketones NEG NEG Urine Occult Blood NEG NEG Urine Nitrite NEG NEG Urine Bilirubin NEG NEG Urine Urobilinogen NEG NEG Urine Leukocyte Esterase NEG NEG Urine WBC (Auto) 0 0-5 /hpf Urine RBC (Auto) 5-10 0-4 /hpf Urine Hyaline Casts (Auto) 1-5 0-5 /lpf Urine Epithelial Cells (Auto) 0-5 0-5 /lpf Urine Bacteria (Auto) NEG NEG Prothrombin Time 28.8 9.0-12.0 SECONDS Prothromb Time International Ratio 2.8 0.9-1.1 Test 01/15/18 11:48 01/15/18 16:26 Range/Units Bedside Glucose 151 203 70-99 mg/dl
[2018-01-15] MEDS: TAMSULOSIN HCL 0.4 MG CAP PO SCH (20:59)
[2018-01-16 00:21] VITALS: O2SAT 96
[2018-01-16 05:26] VITALS: BP 113/63; PULSE 76; TEMP 36.6; O2SAT 91
[2018-01-16] MEDS: INSULIN ASPART 100 UNITS/ML 3 ML PEN SC SCH ×4 (06:45→21:00)
--- NOTE | 2018-01-16 08:54 | Pharmacy Progress Note ---
Pharmacy Glycemic Short Note 2 Date of Service Jan 16, 2018. OUTPATIENT ANTIDIABETIC REGIMEN: * Lantus 22 units SQ daily at dinner * HbA1c: 10.4% (12/15/17) Test 01/15/18 11:48 01/15/18 16:26 01/15/18 20:25 01/16/18 07:35 Bedside Glucose 151 mg/dl (70-99) 203 mg/dl (70-99) 176 mg/dl (70-99) 106 mg/dl (70-99) ASSESSMENT: 01/16/18 * Mr. Burgess received 24 units of insulin yesterday * No changes to causes of insulin resistance * Fasting BSG w/in range * Postprandial BSGs have been consistently elevated * Will tighten lunch, dinner and HS CR from 13 -> 10 01/15/18 * Patient received 37 units of insulin yesterday * BSGs have ranged from 107-230 mg/dL * Postprandial BSGs were elevated yesterday most likely due to late administration of lunch Novolog since patient was at PT * BSGs were fairly stable the day prior so I hesitate to make adjustments until we see a trend PLAN FOR INPATIENT GLYCEMIC CONTROL: * Basal insulin - no change * Lantus 20 units once daily * Lantus 18 units once daily (for BSG < 100) * Bolus insulin * Novolog ACHS * Correction Factor: 15 mg/dL/unit with breakfast, 30 mg/dL/unit with lunch, dinner and HS * Carbohydrate ratio of 1 unit per 6 grams of carbs consumed with breakfast, TIGHTEN to 1 unit per 10 with lunch, dinner and HS * Goal range: 120-160 mg/dL for all Novolog times PLAN FOR DISCHARGE: * For rehab facility: * Lantus 20 units once daily * Novolog per sliding scale ACHS (CF of 30 mg/dL/unit) * Novolog 4 units with each meal * For discharge after rehab facility: * Lantus 22 units once daily with evening meal * ADD Novolog 8 units daily with dinner * Can consider adding a GLP-1 (eg. Trulicity 0.75 mg once weekly or Victoza 0.6 mg daily initially) in place of the Novolog but I'm not sure what his insurance will cover
[2018-01-16] MEDS: GUAIFENESIN 600 MG TABCR PO SCH ×2 (08:59→21:06)
[2018-01-16] MEDS: MAGNESIUM CHLORIDE 64MG DELAYED REL TAB PO SCH (08:59)
[2018-01-16] MEDS: FINASTERIDE 5 MG TAB PO SCH (08:59)
[2018-01-16] MEDS: POT PHOSPHATE MONOBASIC W/ SOD TAB PO SCH ×4 (09:00→21:06)
[2018-01-16] MEDS: INSULIN GLARGINE SOLOSTAR 100 UNITS/ML 3 ML PEN SC SCH (09:09)
--- NOTE | 2018-01-16 11:09 | PROGRESS NOTE ---
DATE: 01/16/2018 CARDIOLOGY CONSULTATION FOLLOWUP NOTE SUBJECTIVE: The physicians asked the patient to be reevaluated due to persistent complaints of orthostasis. Laboratory and studies reviewed. RECOMMENDATIONS: Would hold tamsulosin, consider holding Proscar as well. He is on no other medications account for such a.m. cortisol level will be ordered. Thigh high PERRY hosgeovanny recommended. Will follow the patient. LEATHA
--- NOTE | 2018-01-16 15:44 | Progress Note ---
Internal Med Progress Note Date of Service: Jan 16, 2018. Provider Documentation: SUBJECTIVE: sitting on the chair comfortably coughs once in a while denies sob eating fine no pain afebrile OBJECTIVE: Vital Signs-as noted below Exam: General-alert and oriented. ENT-Normal hearing Neck-no neck masses Lungs-cta b/l no wheezing no crackles present Heart-S1 and S2 heard regular rate and rhythm no murmurs Abdomen-Soft bowel sounds present non tender no distension Extremities-no edema no erythema Neuro-alert and awake moves extremities non focal Lab data as noted below. ASSESSMENT & PLAN: 87M presented with sob and found to have Influenza A. An developed superimposed pneumonia. Sputum cx MSSA. treated with multiple abx. Ct was showing increased infiltrates and was also placed on antifungals but as fungal studies negative it was stopped. Also received diuretics for volume overload. Slowly Resp status improved. But very much deconditioned. requires rehab placement. Currently having orthostatic hypotension limiting pt/ot. Cardiology cut back on Flomax to once daily and stopped diuretic(patient was not on diuretic at home as per epic) .Still somewhat orthostatic today. received gentle fluids But still orthostatic. To hold stating on fludrocortisone as per cardiology. 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 continue pt/ot and monitor ACUTE HYPOXEMIC RESPIRATORY FAILURE- Presented with SOB /cough for 1 week and noted to have spo2 86 in RA , improved with supplemental 02 Secondary to pneumonia FLU was positive but was not treated as he had symptoms > 1 week later developed pneumonia sputum cx growing MSSA was transferred to ICU as repeat ct chest showed worsening infiltration amiodarone was stopped for possible amiodarone toxicity received Lasix for fluid overload Appreciate pulmonary and critical care inputs received broad spectrum abx Was on voriconazole - stopped by pulmonary consulted ID for further recommendations on abx improving slowly. still weak and deconditioned NEEDS TWO STEP PRIOR TO DISCHARGED HOME To continue pt/ot stable currently BILATERAL MULTILOBAR PNEUMONIA pneumonia in setting FLU Started on IV Zosyn ( for pseudomonal coverage in setting of Type 2 DM / hyperglycemia ) Blood CULTURE-NEGATIVE and sputum culture :Staph Aureus.MSSA Received Vancomycin ,Changed to Ceftriaxone and Doxycycline received Zyvox and Zosyn Received Solumedrol and Prednisone-discontinued on 01/02/18 Pulmonary consulted-appreciate input received multiple abx off of abx currently pt/ot stable 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 Amiodarone stopped but may be in system for couple of months Cardiology is on board to followup with cardiology Orthostatic hypotension presyncope Flomax dose cut back to once daily by cardiology torsemide stopped received gentle fluids still orthostatic d/w Cardiology Flomax stopped. to check cortisol level in am Deconditioning from prolonged hospital stay orthostatic hypotension limiting pt/ot plan for rehab HYPERGLYCEMIA WITH TYPE 2 DM On Lantus 22 U HS Started on IV insulin protocol currently on Lantus and iss Pharmacy consulted for glycemic management Hb A1c 9.8 on 09/2017 Hb A1c 10.4 now 203/176/106/229 close monitor [place] ON CKD STAGE 3 due to above received fluids held torsemide baseline cr 1.7 to 1.8 cr 1.3 on 01/14/18 continue to monitor HYPONATREMIA : Due to hyperglycemia received fluids follow PRP -normalized Thrombocytopenia Abx induced? which is stopped now appreciate heme/onco input f/u labs HX OF A FLUTTER : Rate and rhythm controlled amiodarone stopped On Coumadin 2mg daily inr 2.8 f/u inr DVT chronic? on Coumadin as above FULL CODE DISPOSITION ; monitor in tele PT/OT Medicine follow up with Dr Ward plan for rehab when more stable Vital Signs: Date Time Temp Pulse Resp B/P (MAP) Pulse Ox O2 Delivery O2 Flow Rate FiO2 01/16/18 08:00 Nasal Cannula 1.0 01/16/18 05:26 36.6 76 18 113/63 (80) 91 Nasal Cannula 1.0 01/16/18 00:21 96 Nasal Cannula 1.0 01/15/18 23:41 36.8 73 20 112/62 (79) 96 Nasal Cannula 2.0 01/15/18 19:57 96 Nasal Cannula 1.0 01/15/18 19:01 36.6 76 20 136/70 (92) 97 Nasal Cannula 2.0 01/15/18 16:00 Nasal Cannula 1.0 Lab Results: Results Past 24 Hours Test 01/15/18 16:26 01/15/18 20:25 01/16/18 07:35 01/16/18 10:27 Range/Units Bedside Glucose 203 176 106 70-99 mg/dl Test 3/25/18 11:21 Range/Units Bedside Glucose 229 70-99 mg/dl
[2018-01-16 16:02] VITALS: BP 165/82; PULSE 74; TEMP 36.3; O2SAT 97
[2018-01-16] MEDS: WARFARIN SOD 2 MG TAB PO SCH (16:13)
[2018-01-16 23:22] VITALS: BP 115/68; PULSE 83; TEMP 37; O2SAT 97
[2018-01-17] VITALS (8 sets, daily range): BP systolic 92–144; BP diastolic 50–72; PULSE 67–81; TEMP 36.3–36.9; O2SAT 95–99
[2018-01-17 07:52] LABS: HEMATOCRIT 34.5 % (42-52); HEMOGLOBIN 10.7 g/dL (14.0-18.0); MEAN CELL VOLUME 91.3 fL (80-100); MEAN CORPUSCULAR HEMOGLOBIN 28.3 pg (25-34); MEAN PLATELET VOLUME 9.2 fL (7.4-10.4); NUCLEATED RED BLOOD CELL ABS 0.02 K/uL (0-0); PLATELET COUNT 136 K/uL (130-400); RED CELL DISTRIBUTION WIDTH CV 15.7 % (11.5-14.5); RED CELL DISTRIBUTION WIDTH SD 51.7 fL (36.4-46.3); WHITE BLOOD COUNT 7.18 K/uL (4.8-10.8)
[2018-01-17 08:01] LABS: INR 2.9 (0.9-1.1)
[2018-01-17] MEDS: GUAIFENESIN 600 MG TABCR PO SCH ×2 (08:15→20:53)
[2018-01-17] MEDS: FINASTERIDE 5 MG TAB PO SCH (08:15)
[2018-01-17] MEDS: POT PHOSPHATE MONOBASIC W/ SOD TAB PO SCH ×4 (08:15→20:53)
[2018-01-17] MEDS: INSULIN GLARGINE SOLOSTAR 100 UNITS/ML 3 ML PEN SC SCH (08:18)
[2018-01-17] MEDS: INSULIN ASPART 100 UNITS/ML 3 ML PEN SC SCH ×4 (08:18→20:57)
[2018-01-17 08:25] LABS: CALCIUM 7.6 mg/dl (8.5-10.1); CREATININE 1.41 mg/dl (0.60-1.40); POTASSIUM 3.7 mmol/L (3.5-5.1)
[2018-01-17 08:47] LABS: BASO % 0.4 %; BASO ABS # 0.03 K/uL (0-0.2); EOS % 5.7 %; EOS ABS # 0.41 K/uL (0-0.5); IG# 0.41 K/uL (0.00-0.02); LYMPH % 26.9 %; LYMPH ABS # 1.93 K/uL (1.2-3.4); MONO % 11.3 %; MONO ABS # 0.81 K/uL (0.11-0.59); NEUT ABS # 3.59 K/uL (1.4-6.5)
--- NOTE | 2018-01-17 10:59 | Cardiology Follow-Up ---
Subjective General Date of Service: Jan 17, 2018. Chief Complaint: Follow-up lightheadedness Pt evaluation today including: conversation w/ patient, physical exam, chart review, lab review, review of studies, review of inpatient medication list History of Present Illness Patient feeling well this AM. No "bad" spells this AM. Much improved than previously. Is not wearing PERRY hose as advised. No chest pain or SOB. No syncope. Patient requesting discharge today\\ Allergies Coded Allergies: No Known Allergies (Unverified , 05/19/13) Social History Smoking Status: Former Smoker Hx Tobacco Use In Past Year?: No Hx Alcohol Use - Type And Amou: Yes (about 1 beer per month) Hx Substance Use - Type And Am: No Problem List Medical Problems: (1) Hyperglycemia Status: Acute (2) Hypoxia Status: Acute (3) Renal insufficiency Status: Acute Review of Systems Respiratory: No cough, No wheezing, No shortness of breath, No dyspnea at rest , No hemoptysis Cardiac: No chest pain, No orthopnea, No PND, No edema, No palpitations Physical Exam Vital Signs Last Vital Signs Documentation Date Time Temp Pulse Resp B/P (MAP) Pulse Ox O2 Delivery O2 Flow Rate FiO2 01/17/18 07:14 36.3 71 16 111/61 (78) 95 Nasal Cannula 1.0 Physical Exam Constitutional: Level of Distress: NAD, chronically ill Ambulation: ambulating normally Head: normocephalic, atraumatic Neck: supple, trachea midline Lungs: Auscultation: breath sounds normal, no wheezing, no rales/crackles, no rhonchi Cardiovascular: Heart Auscultation: RRR, no murmurs Abdomen: Bowel Sounds: normal Inspection & Palpation: soft, non-distended, no tenderness, guarding & rebound Extremities: no edema Neurologic: Gait & Station: pertinent finding (No focal deficits) Cranial Nerves: grossly intact Assessment and Plan Assessment and Plan 87 year old male with ongoing orthostatic hypotension. Not on BP medication. Cortisol levels OK this AM. Flomax discontinued. Remains on Proscar. Recommend thigh high TEDS - not currently wearing. Increase fluids. Improved symptoms this AM according to patient. Recommend discharging to rehab facility. Case discussed with Dr. Johnson Patient seen and chart reviewed above findings noted. Recommendations as above continue to hold Flomax. Recommend the use of thigh-high PERRY hose, pursue rehabilitation efforts Alex Johnson MD Laboratory Results Last 24 Hours Test 01/16/18 11:21 01/16/18 17:06 01/16/18 20:15 01/17/18 07:00 Bedside Glucose 229 mg/dl 157 mg/dl 86 mg/dl 151 mg/dl Test 01/17/18 07:26 White Blood Count 7.18 K/uL Red Blood Count 3.78 M/uL Hemoglobin 10.7 g/dL Hematocrit 34.5 % Mean Corpuscular Volume 91.3 fL Mean Corpuscular Hemoglobin 28.3 pg Mean Corpuscular Hemoglobin Concent 31.0 g/dl Platelet Count 136 K/uL Mean Platelet Volume 9.2 fL Neutrophils (%) (Auto) 50.0 % Lymphocytes (%) (Auto) 26.9 % Monocytes (%) (Auto) 11.3 % Eosinophils (%) (Auto) 5.7 % Basophils (%) (Auto) 0.4 % Neutrophils # (Auto) 3.59 K/uL Lymphocytes # (Auto) 1.93 K/uL Monocytes # (Auto) 0.81 K/uL Eosinophils # (Auto) 0.41 K/uL Basophils # (Auto) 0.03 K/uL RDW Standard Deviation 51.7 fL RDW Coefficient of Variation 15.7 % Immature Granulocyte % (Auto) 5.7 % Immature Granulocyte # (Auto) 0.41 K/uL Nucleated RBC Absolute Count (auto) 0.02 K/uL Nucleated Red Blood Cells % 0.2 % Prothrombin Time 29.6 SECONDS Prothromb Time International Ratio 2.9 Sodium Level 140 mmol/L Potassium Level 3.7 mmol/L Chloride Level 106 mmol/L Carbon Dioxide Level 28 mmol/L Anion Gap 6.0 mmol/L Blood Urea Nitrogen 17 mg/dl Creatinine 1.41 mg/dl Est Creatinine Clear Calc Drug Dose 41.3 ml/min Estimated GFR () 51.9 Estimated GFR (Non- 44.8 BUN/Creatinine Ratio 12.0 Random Glucose 158 mg/dl Calcium Level 7.6 mg/dl Magnesium Level 1.9 mg/dl Cortisol AM Sample 18.39 mcg/dl
--- NOTE | 2018-01-17 14:16 | Progress Note ---
Internal Med Progress Note Date of Service: Jan 17, 2018. Provider Documentation: SUBJECTIVE: sitting on the chair comfortably denies so or cough no pain afebrile want to go to rehab OBJECTIVE: Vital Signs-as noted below Exam: General-alert and oriented. ENT-Normal hearing Neck-no neck masses Lungs-cta b/l no wheezing no crackles present Heart-S1 and S2 heard regular rate and rhythm no murmurs Abdomen-Soft bowel sounds present non tender no distension Extremities-no edema no erythema Neuro-alert and awake moves extremities non focal Lab data as noted below. ASSESSMENT & PLAN: 87M presented with sob and found to have Influenza A. An developed superimposed pneumonia. Sputum cx MSSA. treated with multiple abx. Ct was showing increased infiltrates and was also placed on antifungals but as fungal studies negative it was stopped. Also received diuretics for volume overload. Slowly Resp status improved. But very much deconditioned. requires rehab placement. Currently having orthostatic hypotension limiting pt/ot. Cardiology cut back on Flomax to once daily and stopped diuretic(patient was not on diuretic at home as per epic) .Still somewhat orthostatic today. received gentle fluids But still orthostatic. To hold stating on fludrocortisone as per cardiology. 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 continue pt/ot and monitor ACUTE HYPOXEMIC RESPIRATORY FAILURE- Presented with SOB /cough for 1 week and noted to have spo2 86 in RA , improved with supplemental 02 Secondary to pneumonia FLU was positive but was not treated as he had symptoms > 1 week later developed pneumonia sputum cx growing MSSA was transferred to ICU as repeat ct chest showed worsening infiltration amiodarone was stopped for possible amiodarone toxicity received Lasix for fluid overload Appreciate pulmonary and critical care inputs received broad spectrum abx Was on voriconazole - stopped by pulmonary consulted ID for further recommendations on abx improving slowly. still weak and deconditioned NEEDS TWO STEP PRIOR TO DISCHARGED HOME To continue pt/ot stable currently possible rehab in am BILATERAL MULTILOBAR PNEUMONIA pneumonia in setting FLU Started on IV Zosyn ( for pseudomonal coverage in setting of Type 2 DM / hyperglycemia ) Blood CULTURE-NEGATIVE and sputum culture :Staph Aureus.MSSA Received Vancomycin ,Changed to Ceftriaxone and Doxycycline received Zyvox and Zosyn Received Solumedrol and Prednisone-discontinued on 01/02/18 Pulmonary consulted-appreciate input received multiple abx off of abx currently pt/ot stable 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 Amiodarone stopped but may be in system for couple of months Cardiology is on board to followup with cardiology stable Orthostatic hypotension presyncope Flomax dose cut back to once daily by cardiology torsemide stopped received gentle fluids still orthostatic d/w Cardiology Flomax stopped. cortisol level unremarkable teds continue to monitor Deconditioning from prolonged hospital stay orthostatic hypotension limiting pt/ot plan for rehab HYPERGLYCEMIA WITH TYPE 2 DM On Lantus 22 U HS Started on IV insulin protocol currently on Lantus and iss Pharmacy consulted for glycemic management Hb A1c 9.8 on 09/2017 Hb A1c 10.4 now 86/151/158/179 close monitor [place] ON CKD STAGE 3 due to above received fluids held torsemide baseline cr 1.7 to 1.8 cr 1.4 continue to monitor HYPONATREMIA : Due to hyperglycemia received fluids follow PRP -normalized Thrombocytopenia Abx induced? 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 Coumadin as above FULL CODE DISPOSITION ; monitor in tele PT/OT Medicine follow up with Dr Ward plan for rehab possibly in am Vital Signs: Date Time Temp Pulse Resp B/P (MAP) Pulse Ox O2 Delivery O2 Flow Rate FiO2 01/17/18 11:12 81 92/50 (64) 01/17/18 11:11 78 110/61 (77) 01/17/18 08:00 95 Nasal Cannula 1.0 01/17/18 07:14 36.3 71 16 111/61 (78) 95 Nasal Cannula 1.0 01/17/18 00:20 Nasal Cannula 1.0 01/16/18 23:22 37.0 83 17 115/68 (84) 97 Nasal Cannula 1.0 01/16/18 20:30 Nasal Cannula 1.0 01/16/18 16:02 36.3 74 18 165/82 (109) 97 Nasal Cannula 2.0 01/16/18 16:00 Nasal Cannula 1.0 Lab Results: Results Past 24 Hours Test 01/16/18 17:06 01/16/18 20:15 01/17/18 07:00 01/17/18 07:26 Range/Units Bedside Glucose 157 86 151 70-99 mg/dl White Blood Count 7.18 4.8-10.8 K/uL Red Blood Count 3.78 4.7-6.1 M/uL Hemoglobin 10.7 14.0-18.0 g/dL Hematocrit 34.5 42-52 % Mean Corpuscular Volume 91.3 80-100 fL Mean Corpuscular Hemoglobin 28.3 25-34 pg Mean Corpuscular Hemoglobin Concent 31.0 32-36 g/dl Platelet Count 136 130-400 K/uL Mean Platelet Volume 9.2 7.4-10.4 fL Neutrophils (%) (Auto) 50.0 % Lymphocytes (%) (Auto) 26.9 % Monocytes (%) (Auto) 11.3 % Eosinophils (%) (Auto) 5.7 % Basophils (%) (Auto) 0.4 % Neutrophils # (Auto) 3.59 1.4-6.5 K/uL Lymphocytes # (Auto) 1.93 1.2-3.4 K/uL Monocytes # (Auto) 0.81 0.11-0.59 K/uL Eosinophils # (Auto) 0.41 0-0.5 K/uL Basophils # (Auto) 0.03 0-0.2 K/uL RDW Standard Deviation 51.7 36.4-46.3 fL RDW Coefficient of Variation 15.7 11.5-14.5 % Immature Granulocyte % (Auto) 5.7 % Immature Granulocyte # (Auto) 0.41 0.00-0.02 K/uL Nucleated RBC Absolute Count (auto) 0.02 0-0 K/uL Nucleated Red Blood Cells % 0.2 % Prothrombin Time 29.6 9.0-12.0 SECONDS Prothromb Time International Ratio 2.9 0.9-1.1 Sodium Level 140 136-145 mmol/L Potassium Level 3.7 3.5-5.1 mmol/L Chloride Level 106 98-107 mmol/L Carbon Dioxide Level 28 21-32 mmol/L Anion Gap 6.0 3-11 mmol/L Blood Urea Nitrogen 17 7-18 mg/dl Creatinine 1.41 0.60-1.40 mg/dl Est Creatinine Clear Calc Drug Dose 41.3 ml/min Estimated GFR () 51.9 Estimated GFR (Non- 44.8 BUN/Creatinine Ratio 12.0 10-20 Random Glucose 158 70-99 mg/dl Calcium Level 7.6 8.5-10.1 mg/dl Magnesium Level 1.9 1.8-2.4 mg/dl Cortisol AM Sample 18.39 4.30-22.40 mcg/dl Test 01/17/18 11:37 Range/Units Bedside Glucose 179 70-99 mg/dl
[2018-01-17] MEDS: WARFARIN SOD 2 MG TAB PO SCH (16:40)
[2018-01-18] VITALS (7 sets, daily range): BP systolic 66–134; BP diastolic 41–72; PULSE 65–82; TEMP 36.6–36.9; O2SAT 95–99
[2018-01-18 06:02] LABS: BASO % 0.5 %; BASO ABS # 0.03 K/uL (0-0.2); EOS % 6.2 %; EOS ABS # 0.38 K/uL (0-0.5); HEMATOCRIT 31.7 % (42-52); HEMOGLOBIN 10.2 g/dL (14.0-18.0); IG# 0.26 K/uL (0.00-0.02); LYMPH % 29.3 %; LYMPH ABS # 1.81 K/uL (1.2-3.4); MEAN CELL VOLUME 91.6 fL (80-100); MEAN CORPUSCULAR HEMOGLOBIN 29.5 pg (25-34); MEAN CORPUSCULAR HGB CONC 32.2 g/dl (32-36); MEAN PLATELET VOLUME 8.9 fL (7.4-10.4); MONO % 11.8 %; MONO ABS # 0.73 K/uL (0.11-0.59); NEUT ABS # 2.96 K/uL (1.4-6.5); PLATELET COUNT 124 K/uL (130-400); RED CELL DISTRIBUTION WIDTH CV 16.2 % (11.5-14.5); RED CELL DISTRIBUTION WIDTH SD 52.9 fL (36.4-46.3); WHITE BLOOD COUNT 6.17 K/uL (4.8-10.8)
[2018-01-18 06:34] LABS: CALCIUM 7.5 mg/dl (8.5-10.1); CREATININE 1.35 mg/dl (0.60-1.40); POTASSIUM 3.6 mmol/L (3.5-5.1)
[2018-01-18] MEDS: GUAIFENESIN 600 MG TABCR PO SCH ×2 (08:01→20:56)
[2018-01-18] MEDS: POT PHOSPHATE MONOBASIC W/ SOD TAB PO SCH ×4 (08:01→20:56)
[2018-01-18] MEDS: FINASTERIDE 5 MG TAB PO SCH (08:01)
[2018-01-18] MEDS: INSULIN ASPART 100 UNITS/ML 3 ML PEN SC SCH ×4 (08:29→21:04)
[2018-01-18] MEDS: INSULIN GLARGINE SOLOSTAR 100 UNITS/ML 3 ML PEN SC SCH (08:31)
--- NOTE | 2018-01-18 11:47 | Pharmacy Progress Note ---
Pharmacy Glycemic Short Note 2 Date of Service Jan 18, 2018. OUTPATIENT ANTIDIABETIC REGIMEN: * Lantus 22 units SQ daily at dinner * HbA1c: 10.4% (12/15/17) ASSESSMENT: 01/18/18 * Mr Burgess received 31 units of insulin yesterday with 20 units of basal insulin. Blood sugars were 026-272-367-210 mg/dL. The patient's fasting blood sugar was 142 mg/dL. * For the past few days the patient's fasting blood sugar has increased slightly. Will increase the upper dose of Lantus by 1 unit. Previously, it appeared that several days of Lantus 22 units eventually was too aggressive for the patient. Therefore, will try 21 units with lower dose available if patient' s fasting decreases. * For Novolog, the control appears reasonable. Do not want to adjust too many variables at once so will start with Lantus changes then if necessary will change Novolog. PLAN FOR INPATIENT GLYCEMIC CONTROL: * Basal insulin - increase slightly * Lantus 21 units once daily * Lantus 18 units once daily (for BSG < 100) * Bolus insulin * Novolog ACHS * Correction Factor: 15 mg/dL/unit with breakfast, 30 mg/dL/unit with lunch, dinner and HS * Carbohydrate ratio of 1 unit per 6 grams of carbs consumed with breakfast; 1 unit per 12 with lunch, dinner and HS * Goal range: 120-160 mg/dL for all Novolog times PLAN FOR DISCHARGE: * For rehab facility: * Lantus 20 units once daily * Novolog per sliding scale ACHS (CF of 30 mg/dL/unit) * Novolog 4 units with each meal * For discharge after rehab facility: * Lantus 22 units once daily with evening meal * ADD Novolog 8 units daily with dinner * Can consider adding a GLP-1 (eg. Trulicity 0.75 mg once weekly or Victoza 0.6 mg daily initially) in place of the Novolog but I'm not sure what his insurance will cover
--- NOTE | 2018-01-18 15:47 | Progress Note ---
Internal Med Progress Note Date of Service: Jan 18, 2018. Provider Documentation: SUBJECTIVE: resting on chair as per nursing staff did better in PT today but complaining of neck pain denies sob eating fine Still has orthostatic hypotension but seems better. OBJECTIVE: Vital Signs-as noted below Exam: General-alert and oriented. ENT-Normal hearing Neck-no neck masses Lungs-cta b/l no wheezing no crackles present Heart-S1 and S2 heard regular rate and rhythm no murmurs Abdomen-Soft bowel sounds present non tender no distension Extremities-no edema no erythema Neuro-alert and awake moves extremities non focal Lab data as noted below. ASSESSMENT & PLAN: 87M presented with sob and found to have Influenza A. An developed superimposed pneumonia. Sputum cx MSSA. treated with multiple abx. Ct was showing increased infiltrates and was also placed on antifungals but as fungal studies negative it was stopped. Also received diuretics for volume overload. Slowly Resp status improved. But very much deconditioned. requires rehab placement. Currently having orthostatic hypotension limiting pt/ot. Cardiology cut back on Flomax to once daily and stopped diuretic(patient was not on diuretic at home as per epic) .Still somewhat orthostatic today. received gentle fluids But still orthostatic. To hold stating on fludrocortisone as per cardiology. 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 Stopped folmax stopped altogether. on TEds. To stop Proscar if s orthostatic hypotension persists.continue pt/ot and monitor ACUTE HYPOXEMIC RESPIRATORY FAILURE- Presented with SOB /cough for 1 week and noted to have spo2 86 in RA , improved with supplemental 02 Secondary to pneumonia FLU was positive but was not treated as he had symptoms > 1 week later developed pneumonia sputum cx growing MSSA was transferred to ICU as repeat ct chest showed worsening infiltration amiodarone was stopped for possible amiodarone toxicity received Lasix for fluid overload Appreciate pulmonary and critical care inputs received broad spectrum abx Was on voriconazole - stopped by pulmonary consulted ID for further recommendations on abx improving slowly. continue to be weak and deconditioned NEEDS TWO STEP PRIOR TO DISCHARGED HOME To continue pt/ot Orthostatic hypotension limiting pt/ot-getting better possible rehab in am BILATERAL MULTILOBAR PNEUMONIA pneumonia in setting FLU Started on IV Zosyn ( for pseudomonal coverage in setting of Type 2 DM / hyperglycemia ) Blood CULTURE-NEGATIVE and sputum culture :Staph Aureus.MSSA Received Vancomycin ,Changed to Ceftriaxone and Doxycycline received Zyvox and Zosyn Received Solumedrol and Prednisone-discontinued on 01/02/18 Pulmonary consulted-appreciate input received multiple abx off of abx currently pt/ot stable 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 cortisol level unremarkable teds somewhat better today if still persist will stop Proscar continue to monitor Deconditioning from prolonged hospital stay orthostatic hypotension limiting pt/ot plan for rehab in am HYPERGLYCEMIA WITH TYPE 2 DM On Lantus 22 U HS Started on IV insulin protocol currently on Lantus and iss Pharmacy consulted for glycemic management Hb A1c 9.8 on 09/2017 Hb A1c 10.4 now 210/157/142/128 close monitor OKSANA ON CKD STAGE 3 due to above received fluids held torsemide baseline cr 1.7 to 1.8 cr 1.4 continue to monitor HYPONATREMIA : Due to hyperglycemia received fluids follow PRP -normalized Thrombocytopenia Abx induced? 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 Coumadin as above FULL CODE DISPOSITION ; monitor in tele PT/OT Medicine follow up with Dr Ward plan for rehab possibly in am Vital Signs: Date Time Temp Pulse Resp B/P (MAP) Pulse Ox O2 Delivery O2 Flow Rate FiO2 01/18/18 11:06 67 20 125/72 (89) 98 Nasal Cannula 1.0 01/18/18 10:37 78 109/63 (78) 81 72/53 (59) 82 66/41 (49) 01/18/18 09:05 95 Nasal Cannula 1.0 01/18/18 07:27 36.6 65 16 125/63 (83) 96 Nasal Cannula 2.0 01/18/18 00:00 Nasal Cannula 1.5 01/17/18 23:59 36.9 67 18 137/70 (92) 97 Nasal Cannula 1.0 01/17/18 19:47 36.3 67 24 144/64 (90) 96 Nasal Cannula 1.0 01/17/18 16:00 99 Room Air 1.5 Nasal Cannula 01/17/18 15:46 36.4 67 20 128/72 (90) 99 Room Air Lab Results: Results Past 24 Hours Test 01/17/18 16:47 01/17/18 20:24 01/18/18 05:43 01/18/18 07:32 Range/Units Bedside Glucose 160 210 142 70-99 mg/dl White Blood Count 6.17 4.8-10.8 K/uL Red Blood Count 3.46 4.7-6.1 M/uL Hemoglobin 10.2 14.0-18.0 g/dL Hematocrit 31.7 42-52 % Mean Corpuscular Volume 91.6 80-100 fL Mean Corpuscular Hemoglobin 29.5 25-34 pg Mean Corpuscular Hemoglobin Concent 32.2 32-36 g/dl Platelet Count 124 130-400 K/uL Mean Platelet Volume 8.9 7.4-10.4 fL Neutrophils (%) (Auto) 48.0 % Lymphocytes (%) (Auto) 29.3 % Monocytes (%) (Auto) 11.8 % Eosinophils (%) (Auto) 6.2 % Basophils (%) (Auto) 0.5 % Neutrophils # (Auto) 2.96 1.4-6.5 K/uL Lymphocytes # (Auto) 1.81 1.2-3.4 K/uL Monocytes # (Auto) 0.73 0.11-0.59 K/uL Eosinophils # (Auto) 0.38 0-0.5 K/uL Basophils # (Auto) 0.03 0-0.2 K/uL RDW Standard Deviation 52.9 36.4-46.3 fL RDW Coefficient of Variation 16.2 11.5-14.5 % Immature Granulocyte % (Auto) 4.2 % Immature Granulocyte # (Auto) 0.26 0.00-0.02 K/uL Sodium Level 142 136-145 mmol/L Potassium Level 3.6 3.5-5.1 mmol/L Chloride Level 108 98-107 mmol/L Carbon Dioxide Level 28 21-32 mmol/L Anion Gap 6.0 3-11 mmol/L Blood Urea Nitrogen 16 7-18 mg/dl Creatinine 1.35 0.60-1.40 mg/dl Est Creatinine Clear Calc Drug Dose 43.1 ml/min Estimated GFR () 54.7 Estimated GFR (Non- 47.2 BUN/Creatinine Ratio 11.6 10-20 Random Glucose 157 70-99 mg/dl Calcium Level 7.5 8.5-10.1 mg/dl Magnesium Level 1.9 1.8-2.4 mg/dl Test 01/18/18 11:29 Range/Units Bedside Glucose 128 70-99 mg/dl
--- NOTE | 2018-01-18 16:03 | DIAGNOSTIC IMAGING REPORT ---
CT OF THE CERVICAL SPINE CLINICAL HISTORY: Severe neck pain and COMPARISON STUDY: No previous studies for comparison. CT DOSE: 464.15 mGycm TECHNIQUE: CT scan of the cervical spine was performed from the skull base to the thoracic inlet. Images are reviewed in the axial, sagittal, and coronal planes. IV contrast was not administered for this examination. A dose lowering technique was utilized adhering to the principles of ALARA. FINDINGS: There are right apical fibrotic changes The prevertebral soft tissues are normal. No fractures or subluxations are visualized. There are multilevel degenerative changes. There is bilateral C3-4 foraminal narrowing and mild spinal stenosis. There is prominent ligamentous calcification at the C4-5 level with mild spinal canal narrowing. There is also a suspected C4-5 disc bulge/protrusion. There is bilateral foraminal narrowing at the C5-6 level with mild spinal stenosis. There is calcification of posterior longitudinal ligament at the C6 level with mild spinal canal narrowing. IMPRESSION: 1. Moderate multilevel spondylitic changes. 2. Probable C4-5 disc bulge/protrusion. 3. Mild multilevel spinal stenosis. Multilevel foraminal narrowing. 4. No acute fractures identified. Electronically signed by: Abdon Perry M.D. 01/18/2018 4:01 PM Dictated Date/Time: 01/18/2018 3:58 PM
[2018-01-18] MEDS: WARFARIN SOD 2 MG TAB PO SCH (16:48)
[2018-01-19 04:18] VITALS: BP 121/65; PULSE 66; TEMP 36.6; O2SAT 95
[2018-01-19 07:27] VITALS: BP 119/58; PULSE 65; TEMP 36.6; O2SAT 96
[2018-01-19 08:00] VITALS: O2SAT 95
[2018-01-19 08:10] VITALS: BP_SYST 126; BP_SYST 82; BP_SYST 93; BP_DIAS 44; BP_DIAS 51; BP_DIAS 60; PULSE 72; PULSE 76; PULSE 84; O2SAT 93
[2018-01-19 08:26] LABS: BASO % 0.4 %; BASO ABS # 0.03 K/uL (0-0.2); EOS % 5.2 %; HEMATOCRIT 34.8 % (42-52); HEMOGLOBIN 11.1 g/dL (14.0-18.0); LYMPH % 35.1 %; LYMPH ABS # 2.71 K/uL (1.2-3.4); MEAN CELL VOLUME 92.3 fL (80-100); MEAN CORPUSCULAR HEMOGLOBIN 29.4 pg (25-34); MEAN CORPUSCULAR HGB CONC 31.9 g/dl (32-36); MEAN PLATELET VOLUME 8.9 fL (7.4-10.4); MONO % 10.8 %; MONO ABS # 0.83 K/uL (0.11-0.59); NEUT % 47.2 %; NEUT ABS # 3.64 K/uL (1.4-6.5); PLATELET COUNT 152 K/uL (130-400); RED CELL DISTRIBUTION WIDTH CV 16.5 % (11.5-14.5); RED CELL DISTRIBUTION WIDTH SD 54.4 fL (36.4-46.3); WHITE BLOOD COUNT 7.71 K/uL (4.8-10.8)
[2018-01-19 08:34] LABS: INR 2.8 (0.9-1.1)
[2018-01-19 09:00] LABS: CALCIUM 7.9 mg/dl (8.5-10.1); CREATININE 1.4 mg/dl (0.60-1.40); POTASSIUM 3.6 mmol/L (3.5-5.1)
--- NOTE | 2018-01-19 09:02 | Orthopedic Consultation ---
Orthopedic Consultation Date of Consultation: Jan 19, 2018. Attending Physician: Ronnie Singleton MD Reason for Consultation: Neck pain History of Present Illness This is a very pleasant 87-year-old gentleman who was admitted to the hospital December 15 with influenza A complicated by pneumonia that ended up being MSSA positive. He has been here since it is actually expected to go to rehab today. We are asked to see this patient in consultation of his chronic neck pain. The patient's daughter is a nurse here and his current nurse relayed the story that anytime he stands up he seems to have fear of cervical extension this is causing him to hold his breath and he is having some orthostatic events. Neck flexion alleviates his pain. He states he has had his chronic neck pain at home for years and years. There is no new pain or change to his pain. Denies radicular upper extremity or lower extremity complaints. Normally ambulates independently at home prior to admission. He does not take any medication at home for the pain. Has really only had Tylenol during his hospital stay but this has been rare. Past Medical/Surgical History Medical Problems: (1) Hyperglycemia Status: Acute (2) Hypoxia Status: Acute (3) Renal insufficiency Status: Acute Social History Smoking Status: Former Smoker Drug Use: none Marital Status: Housing Status: lives with significant other Occupation Status: retired Allergies Coded Allergies: No Known Allergies (Unverified , 05/19/13) Home Medications Scheduled Amiodarone HCl (Amiodarone HCl), 200 MG PO DAILY Cholecalciferol (Vitamin D3), 2,000 UNITS PO DAILY Insulin Glargine (Lantus), 22 UNITS SC DAILY Lisinopril (Zestril), 20 MG PO BID Omeprazole (Prilosec), 20 MG PO DAILY Tamsulosin Hcl (Flomax), 0.4 MG PO BID Warfarin Sod (Coumadin), 2.5-5 MG PO UD Current Inpatient Medications Current Inpatient Medications Medications (Trade) Dose Ordered Sig/Krystal Route Start Time Stop Time Status Last Admin Dose Admin Miscellaneous Information (Consult Glycemic Management Pharmacy) 1 ea UD PRN N/A 12/15/17 18:01 02/14/18 18:00 Guaifenesin (Mucinex Contr Rel Tab) 600 mg Q12 PO 12/21/17 21:00 01/20/18 20:59 01/18/18 20:56 600 MG Miconazole Nitrate (Desenex Powder) 1 appln PRN PRN EXT 12/26/17 03:30 01/25/18 03:29 Finasteride (Proscar Tab) 5 mg QAM PO 12/27/17 09:00 01/26/18 08:59 01/18/18 08:01 5 MG Glucose (Glucose 40% Gel) 15-30 GRAMS 15 GRAMS... UD PRN PO 12/27/17 16:45 01/26/18 16:44 Glucose (Glucose Chew Tab) 4-8 Tablets 4 Tabl... UD PRN PO 12/27/17 16:45 01/26/18 16:44 12/27/17 16:46 4 TABS Dextrose (Dextrose 50% 50ML Syringe) 25-50ML OF 50% DW IV FOR... UD PRN IV 12/27/17 16:45 01/26/18 16:44 Glucagon (Glucagon Inj) 1 mg UD PRN SQ 12/27/17 16:45 01/26/18 16:44 Insulin Aspart (novoLOG ASPART) SLIDING SCALE 0645 SC 01/05/18 06:45 02/04/18 06:44 01/18/18 08:29 4 UNITS Tamsulosin HCl (Flomax Cap) 0.4 mg HS PO 01/07/18 21:00 02/06/18 20:59 Future Hold 01/15/18 20:59 0.4 MG Insulin Aspart (novoLOG ASPART) SLIDING SCALE 1100,1630,2100 SC 01/07/18 11:00 02/06/18 10:59 01/18/18 21:04 1 UNITS Warfarin Sodium (Coumadin Tab) 2 mg DAILY@1600 PO 01/08/18 17:00 02/07/18 16:59 01/18/18 16:48 2 MG Ipratropium Angora (Atrovent 0.02% 0.5MG/2.5ML Neb) 0.5 mg Q4 PRN INH 01/10/18 10:30 02/09/18 10:29 Levalbuterol (Xopenex 1.25MG/ 0.5ML Neb) 1.25 mg Q4 PRN INH 01/10/18 10:30 02/09/18 10:29 Insulin Glargine (Lantus Solostar Pen) SEE PROTOCOL TEXT QAM SC 01/12/18 09:00 02/11/18 08:59 01/18/18 08:31 21 UNITS Acetaminophen (Tylenol Tab) 325 mg Q4H PRN PO 01/12/18 16:15 02/11/18 16:14 Potassium/ Phosphorus/Sodium (Phospha 250 Neutral 155-852-130 Mg) 1 tab QID PO 01/13/18 21:00 02/12/18 20:59 01/18/18 20:56 1 TAB Review of Systems Neck pain Physical Exam Date Time Temp Pulse Resp B/P (MAP) Pulse Ox O2 Delivery O2 Flow Rate FiO2 01/19/18 08:10 84 20 82/44 (57) 93 Nasal Cannula 1.0 76 93/51 (65) 72 126/60 (82) 01/19/18 07:27 36.6 65 16 119/58 (78) 96 Nasal Cannula 1.0 01/19/18 04:18 36.6 66 18 121/65 (83) 95 Nasal Cannula 2.0 01/19/18 00:00 Nasal Cannula 1.5 01/18/18 23:11 36.8 68 18 130/70 (90) 98 Nasal Cannula 1.0 01/18/18 19:51 36.9 73 16 134/70 (91) 96 Nasal Cannula 1.0 01/18/18 16:00 99 Room Air 1.5 Nasal Cannula 01/18/18 11:06 67 20 125/72 (89) 98 Nasal Cannula 1.0 01/18/18 10:37 78 109/63 (78) 81 72/53 (59) 82 66/41 (49) 01/18/18 09:05 95 Nasal Cannula 1.0 Patient is seen in room 285 bed 1. This is in conjunction with his daughter and his nurse. He sitting in a chair. He is in no obvious distress. He is able to change positions with modest assistance from a seated to a standing position. When he does this his neck remains in a slightly flexed position. He is unable to extend extend past neutral. He has 5/5 strength bilateral finger intrinsics finger extensors wrist extensors, biceps, triceps, deltoid. I am unable to elicit any upper motor neuron signs. He does have limited range of motion with cervical extension as well as rotation to the left. Negative Spurling's. Negative Lhermitte's. He is nontender to palpation to the midline as well as trapezius musculature. General Appearance: no apparent distress Head: normocephalic Eyes: normal inspection ENT: hearing grossly normal Neck: supple Respiratory/Chest: no respiratory distress Cardiovascular: regular rate, rhythm Abdomen/GI: soft Back: normal inspection Extremities/Musculoskelatal: normal inspection Neurologic/Psych: no motor/sensory deficits Skin: normal color Lymphatic: no adenopathy Laboratory Results Last 24 Hours Test 01/18/18 11:29 01/18/18 16:37 01/18/18 20:17 01/19/18 07:44 Bedside Glucose 128 mg/dl 96 mg/dl 172 mg/dl 66 mg/dl Test 01/19/18 07:56 01/19/18 08:13 Bedside Glucose 75 mg/dl White Blood Count 7.71 K/uL Red Blood Count 3.77 M/uL Hemoglobin 11.1 g/dL Hematocrit 34.8 % Mean Corpuscular Volume 92.3 fL Mean Corpuscular Hemoglobin 29.4 pg Mean Corpuscular Hemoglobin Concent 31.9 g/dl Platelet Count 152 K/uL Mean Platelet Volume 8.9 fL Neutrophils (%) (Auto) 47.2 % Lymphocytes (%) (Auto) 35.1 % Monocytes (%) (Auto) 10.8 % Eosinophils (%) (Auto) 5.2 % Basophils (%) (Auto) 0.4 % Neutrophils # (Auto) 3.64 K/uL Lymphocytes # (Auto) 2.71 K/uL Monocytes # (Auto) 0.83 K/uL Eosinophils # (Auto) 0.40 K/uL Basophils # (Auto) 0.03 K/uL RDW Standard Deviation 54.4 fL RDW Coefficient of Variation 16.5 % Immature Granulocyte % (Auto) 1.3 % Immature Granulocyte # (Auto) 0.10 K/uL Prothrombin Time 29.3 SECONDS Prothromb Time International Ratio 2.8 Patient Name: JASMIN SUÁREZ Unit Number: [id number] Dictated: 01/18/18 1558 Transcribed: 01/18/18 155 ARG Printed Date/Time: [~ rep prt dt]/[~ rep prt tm] [~ rep ct labl] - [~ rep ct ivnm] [facility] [place] [address] Dictated: 01/18/18 1558 Transcribed: 01/18/18 1558 ARG Printed Date/Time: [~ rep prt dt]/[~ rep prt tm] [~ rep ct labl] - [~ rep ct ivnm] Patient: JASMIN SUÁREZ Address1: [address] [place] [address] Rec: [id number] Address2: [facility] Acct ID: [id number] [facility] Zip: [place] [address] Date: 1930 Sex: M Room/Bed: [facility] Ref Phy: Angelia Ward M.D. (MEDICAL) SC: C.MED Att Phy: Ronnie Singleton MD Report #: [id number] Dorothy Phy: Angelia Ward M.D. (MEDICAL) Test: CSWO Admit Phy: Kristin Meneses M.D. Logging Rafter Laborer: TEETEE Interpreting Phy: Abdon Perry M.D. Diagnosis: HYPERGLYCEMIA DUE TO TYPE 2 DIABETES MELLITUS Ordering Phy: Ronnie Singleton MD Service Date: 01/18/18 Admit Date: 12/15/1801/21/18 MNE: [id number] CONF: DICTATED BY: Abdon Perry M.D.]] CC: Angelia Ward M.D. (MEDICAL) Ronnie Singleton MD Endcc: [~ rep ct add3]] CT OF THE CERVICAL SPINE CLINICAL HISTORY: Severe neck pain and COMPARISON STUDY: No previous studies for comparison. CT DOSE: 464.15 mGycm TECHNIQUE: CT scan of the cervical spine was performed from the skull base to the thoracic inlet. Images are reviewed in the axial, sagittal, and coronal planes. IV contrast was not administered for this examination. A dose lowering technique was utilized adhering to the principles of ALARA. FINDINGS: There are right apical fibrotic changes The prevertebral soft tissues are normal. No fractures or subluxations are visualized. There are multilevel degenerative changes. There is bilateral C3-4 foraminal narrowing and mild spinal stenosis. There is prominent ligamentous calcification at the C4-5 level with mild spinal canal narrowing. There is also a suspected C4-5 disc bulge/protrusion. There is bilateral foraminal narrowing at the C5-6 level with mild spinal stenosis. There is calcification of posterior longitudinal ligament at the C6 level with mild spinal canal narrowing. IMPRESSION: 1. Moderate multilevel spondylitic changes. 2. Probable C4-5 disc bulge/protrusion. 3. Mild multilevel spinal stenosis. Multilevel foraminal narrowing. 4. No acute fractures identified. Electronically signed by: Abdon Perry M.D. 01/18/2018 4:01 PM Dictated Date/Time: 01/18/2018 3:58 PM The status of this report is Signed. Draft = Not yet reviewed or approved by Radiologist. Signed = Reviewed and approved by Radiologist. <AttendingPhy>Ronnie Singleton MD</AttendingPhy> <FamilyPhy>Angelia Ward M.D. (MEDICAL)</FamilyPhy> <PrimaryPhy>Angelia Ward M.D. (MEDICAL)</ PrimaryPhy> <UnitNumber>[id number]</UnitNumber> <VisitNumber>[id number]</ VisitNumber> <PatientName>JASMIN SUÁREZ</PatientName> <DateOfBirth>1929</DateOfBirth> <Location>C[facility]</Location> <ServiceDate>12/15/17</ServiceDate > <MNE>ESINDI</MNE> <OrderingPhy>Ronnie Singleton MD</OrderingPhy> < OrderingPhyMNE>f rep ord dr skelton</OrderingPhyMNE> <DictatingPhyMNE>f rep dict dr skelton</DictatingPhyMNE> <CCListMNE>f rep ct jasone</CCListMNE> <AdmittingPhyMNE>f pt admit dr skelton</AdmittingPhyMNE> <AttendingPhyMNE>f pt attend dr skelton</ AttendingPhyMNE> <ConsultingPhyMNE>f pt consult dr skelton</ConsultingPhyMNE> <FamilyPhyMNE>f pt fam dr skelton</FamilyPhyMNE> <OtherPhyMNE>f pt other dr skelton</OtherPhyMNE> < PrimaryPhyMNE>f pt prim care dr skelton</PrimaryPhyMNE> <ReferringPhyMNE>f pt referring dr skelton</ReferringPhyMNE> Assessment & Plan Assessment: Chronic cervicalgia disc bulge C4-5 I suspect stenosis as well. Trajectory on CT scan is not great at thoroughly evaluating this. There is multilevel spondylosis noted throughout the lower cervical spine. This can certainly contribute to his limited range of motion. Plan: I will pursue MRI of the cervical spine no gadolinium necessary today. This can also be done on an outpatient basis if necessary. This does not have to hold his discharge to rehab. If he does have the scan today and then goes to rehab will happily follow him as an outpatient basis and make further recommendations. There are no acute urgent surgical indications. Continue with cautious pain control measures. Continue with physical therapy.
[2018-01-19] MEDS: GUAIFENESIN 600 MG TABCR PO SCH (09:14)
[2018-01-19] MEDS: POT PHOSPHATE MONOBASIC W/ SOD TAB PO SCH (09:14)
[2018-01-19] MEDS: FINASTERIDE 5 MG TAB PO SCH (09:14)
[2018-01-19] MEDS: INSULIN ASPART 100 UNITS/ML 3 ML PEN SC SCH ×2 (09:18→13:36)
[2018-01-19] MEDS: INSULIN GLARGINE SOLOSTAR 100 UNITS/ML 3 ML PEN SC SCH (09:19)
--- NOTE | 2018-01-19 14:27 | DIAGNOSTIC IMAGING REPORT ---
MRI OF THE CERVICAL SPINE WITHOUT IV CONTRAST CLINICAL HISTORY: Chronic cervicalgia. COMPARISON STUDY: CT scan of the neck dated 01/18/2018. TECHNIQUE: MRI of the cervical spine is performed utilizing various T1 and T2-weighted sequences in the axial and sagittal planes. IV contrast was not measured for this examination. The examination is significantly compromised by motion artifact. FINDINGS: Cervical spine: Vertebral body height and alignment are maintained throughout the cervical spine. Marrow signal intensity is heterogeneous. There is straightening of the cervical lordosis. Anterior osteophytes are seen throughout. The atlantodental articulation appears maintained. The spinous processes are intact. Intervertebral discs: Degenerative disc desiccation is seen at all levels. There is moderate loss of height at C5-C6 and C6-C7. Mild loss of height is seen at the remaining cervical levels. Spinal cord: The cervical spinal cord is normal in morphology and signal intensity. C2-C3: A small posterior disc osteophyte complex is of no consequence. Uncovertebral and facet arthropathy cause moderate left and mild right neural foraminal stenosis. C3-C4: A posterior disc osteophyte complex effaces the ventral cord. Uncovertebral and facet arthropathy cause severe left and moderate right neural foraminal stenosis. C4-C5: A posterior disc osteophyte complex effaces the ventral cord. Uncovertebral and facet arthropathy causes severe bilateral neural foraminal stenosis, right greater than left. C5-C6: A posterior disc osteophyte complex effaces the ventral subarachnoid space. Uncovertebral and facet arthropathy causes mild left neural foraminal stenosis. C6-C7: A posterior disc osteophyte complex effaces the ventral subarachnoid space. Predominantly uncovertebral arthropathy causes mild left-sided neural foraminal stenosis. C7-T1: Unremarkable. Soft tissues: The prevertebral and paraspinous soft tissues are normal as visualized. Brain parenchyma: The partially imaged brain parenchyma at the skull base is within normal limits. IMPRESSION: 1. Moderate multilevel cervical spondylosis as detailed above. See discussion for detailed [id number] analysis. 2. No destructive bony process is seen. 3. The cervical spinal cord is normal in morphology and signal intensity. Dictated: 01/19/2018 2:10 PM Transcribed: 01/19/2018 2:26 PM Dimitri Electronically signed by: Jonatan Duval M.D. 01/19/2018 2:43 PM Dictated Date/Time: 01/19/2018 2:10 PM
--- NOTE | 2018-01-19 14:59 | Progress Note ---
Internal Med Progress Note Date of Service: Jan 19, 2018. Provider Documentation: SUBJECTIVE: resting on chair feeling fine and ready for rehab denies sob or cough orthostatics are better family in room and ok for discharge OBJECTIVE: Vital Signs-as noted below Exam: General-alert and oriented. ENT-Normal hearing Neck-no neck masses Lungs-cta b/l no wheezing no crackles present Heart-S1 and S2 heard regular rate and rhythm no murmurs Abdomen-Soft bowel sounds present non tender no distension Extremities-no edema no erythema Neuro-alert and awake moves extremities non focal Lab data as noted below. ASSESSMENT & PLAN: 87M presented with sob and found to have Influenza A. An developed superimposed pneumonia. Sputum cx MSSA. treated with multiple abx. Ct was showing increased infiltrates and was also placed on antifungals but as fungal studies negative it was stopped. Also received diuretics for volume overload. Slowly Resp status improved. But very much deconditioned. requires rehab placement. Currently having orthostatic hypotension limiting pt/ot. Cardiology cut back on Flomax to once daily and stopped diuretic(patient was not on diuretic at home as per epic) .Still somewhat orthostatic today. received gentle fluids But still orthostatic. To hold stating on fludrocortisone as per cardiology. 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 Stopped Flomax stopped altogether. on TEds. Orthostatic hypotension getting better stop Proscar too as he is not on it at home and also can cause orthostatic hypotension. MRI cervical spine for neck pain moderate stenosis. conservative measures and f/u with orthopedics. Plan for Rehab today ACUTE HYPOXEMIC RESPIRATORY FAILURE- Presented with SOB /cough for 1 week and noted to have spo2 86 in RA , improved with supplemental 02 Secondary to pneumonia FLU was positive but was not treated as he had symptoms > 1 week later developed pneumonia sputum cx growing MSSA was transferred to ICU as repeat ct chest showed worsening infiltration amiodarone was stopped for possible amiodarone toxicity received Lasix for fluid overload Appreciate pulmonary and critical care inputs received broad spectrum abx Was on voriconazole - stopped by pulmonary consulted ID for further recommendations on abx improving slowly. continue to be weak and deconditioned NEEDS TWO STEP PRIOR TO DISCHARGED HOME To continue pt/ot Orthostatic hypotension limiting pt/ot-improving Rehab today BILATERAL MULTILOBAR PNEUMONIA pneumonia in setting of FLU Started on IV Zosyn ( for pseudomonal coverage in setting of Type 2 DM / hyperglycemia ) Blood CULTURE-NEGATIVE and sputum culture :Staph Aureus.MSSA Received Vancomycin ,Changed to Ceftriaxone and Doxycycline received Zyvox and Zosyn Received Solumedrol and Prednisone-discontinued on 01/02/18 Pulmonary consulted-appreciate input received multiple abx off of abx currently pt/ot resolved 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 cortisol level unremarkable teds somewhat better today Stopping Proscar( not on it at home) too at discharge as it can cause orthostatic hypotension continue to monitor Deconditioning from prolonged hospital stay orthostatic hypotension limiting pt/ot plan for rehab today HYPERGLYCEMIA WITH TYPE 2 DM On Lantus 22 U HS Started on IV insulin protocol currently on Lantus and iss Pharmacy consulted for glycemic management Hb A1c 9.8 on 09/2017 Hb A1c 10.4 now close monitor OKSANA ON CKD STAGE 3 due to above received fluids held torsemide baseline cr 1.7 to 1.8 cr 1.4 continue to monitor HYPONATREMIA : Due to hyperglycemia received fluids follow PRP -normalized Thrombocytopenia Abx induced? which is stopped now appreciate heme/onco input resolved HX OF A FLUTTER : Rate and rhythm controlled amiodarone stopped On Coumadin 2mg daily inr 2.8 f/u inr HTN on lisinopril at home which is stopped now as BP ok and having orthostatic hypotension. 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 The cervical spinal cord is normal in morphology and signal intensity f/u with orthopedics FULL CODE DISPOSITION : Discharging to rehab today followup with pcp, cardiology, urology and orthopedics Vital Signs: Date Time Temp Pulse Resp B/P (MAP) Pulse Ox O2 Delivery O2 Flow Rate FiO2 01/19/18 08:10 84 20 82/44 (57) 93 Nasal Cannula 1.0 76 93/51 (65) 72 126/60 (82) 01/19/18 08:00 95 Nasal Cannula 1.0 01/19/18 07:27 36.6 65 16 119/58 (78) 96 Nasal Cannula 1.0 01/19/18 04:18 36.6 66 18 121/65 (83) 95 Nasal Cannula 2.0 01/19/18 00:00 Nasal Cannula 1.5 01/18/18 23:11 36.8 68 18 130/70 (90) 98 Nasal Cannula 1.0 01/18/18 19:51 36.9 73 16 134/70 (91) 96 Nasal Cannula 1.0 01/18/18 16:00 99 Room Air 1.5 Nasal Cannula Lab Results: Results Past 24 Hours Test 01/18/18 16:37 01/18/18 20:17 01/19/18 07:44 01/19/18 07:56 Range/Units Bedside Glucose 96 172 66 75 70-99 mg/dl Test 01/19/18 08:13 01/19/18 11:25 Range/Units White Blood Count 7.71 4.8-10.8 K/uL Red Blood Count 3.77 4.7-6.1 M/uL Hemoglobin 11.1 14.0-18.0 g/dL Hematocrit 34.8 42-52 % Mean Corpuscular Volume 92.3 80-100 fL Mean Corpuscular Hemoglobin 29.4 25-34 pg Mean Corpuscular Hemoglobin Concent 31.9 32-36 g/dl Platelet Count 152 130-400 K/uL Mean Platelet Volume 8.9 7.4-10.4 fL Neutrophils (%) (Auto) 47.2 % Lymphocytes (%) (Auto) 35.1 % Monocytes (%) (Auto) 10.8 % Eosinophils (%) (Auto) 5.2 % Basophils (%) (Auto) 0.4 % Neutrophils # (Auto) 3.64 1.4-6.5 K/uL Lymphocytes # (Auto) 2.71 1.2-3.4 K/uL Monocytes # (Auto) 0.83 0.11-0.59 K/uL Eosinophils # (Auto) 0.40 0-0.5 K/uL Basophils # (Auto) 0.03 0-0.2 K/uL RDW Standard Deviation 54.4 36.4-46.3 fL RDW Coefficient of Variation 16.5 11.5-14.5 % Immature Granulocyte % (Auto) 1.3 % Immature Granulocyte # (Auto) 0.10 0.00-0.02 K/uL Prothrombin Time 29.3 9.0-12.0 SECONDS Prothromb Time International Ratio 2.8 0.9-1.1 Sodium Level 142 136-145 mmol/L Potassium Level 3.6 3.5-5.1 mmol/L Chloride Level 107 98-107 mmol/L Carbon Dioxide Level 27 21-32 mmol/L Anion Gap 8.0 3-11 mmol/L Blood Urea Nitrogen 15 7-18 mg/dl Creatinine 1.40 0.60-1.40 mg/dl Est Creatinine Clear Calc Drug Dose 41.6 ml/min Estimated GFR () 52.4 Estimated GFR (Non- 45.2 BUN/Creatinine Ratio 10.9 10-20 Random Glucose 111 70-99 mg/dl Calcium Level 7.9 8.5-10.1 mg/dl Magnesium Level 2.0 1.8-2.4 mg/dl Bedside Glucose 157 70-99 mg/dl
[2018-01-19] MEDS ORDERED: INSDGIPEN SC ×2 (15:08→15:30)
[2018-01-19] MEDS ORDERED: NVLGIPEN SC ×2 (15:08→15:30)
[2018-01-19] MEDS ORDERED: CMD2 PO ×2 (15:08→15:30)
--- NOTE | 2018-01-19 15:14 | Discharge Instructions ---
Discharge Instructions Date of Service Jan 19, 2018. Admission Reason for Admission: Hyperglycemia Due To Type 2 Diabetes Mellitus Discharge Discharge Diagnosis / Problem: ACUTE RESP FAILURE, flu, mssa Pneumonia, OKSANA, Orthostatic hypotension, Discharge Goals Goal(s): Decrease discomfort, Improve function Activity Recommendations Activity Level: Assistance Required Therapies: Physical Therapy, Occupational Therapy . Additional Information Patient informed of condition: Yes Advance Directives: Yes DNR: No Level of Care: Acute Rehab Communicable Disease: No Prognosis: Stable Oxygen at (LPM): 1-2lts via nasal canula Mandel Catheter: No Instructions / Follow-Up Instructions / Follow-Up FOLLOWUP WITH FAMILY DOCTOR IN NE WEEK ON DISCHARGE FOLLOWUP WITH CARDIOLOGY IN 2-3 WEEKS FOLLOWUP WITH UROLOGY IN 2-3 WEEKS FOLLOWUP WITH ORTHOPEDICS IN 2-3 WEEKS. PLEASE DO BLADDER SCAN THREE TIMES DAILY AND STRAIGHT CATH OR MANDEL IF RESIDUAL > 350ML AND FOLLOWUP WITH UROLOGY.( STOPPED FLOMAX FOR ORTHOSTATIC HYPOTENSION). PLEASE CHECK BLOOD SUGARS AC AND HS AND ADJUST INSULIN REGIMEN LEASE FOLLOW PT/INR AND ADJUST COUMADIN DOSING. FOLLOWUP WITH COUMADIN CLINIC. TWO STEP PRIOR TO DISCHARGE FROM REHAB. Current Hospital Diet Patient's current hospital diet: Diabetes Type 2 Diet Discharge Diet Recommended Diet: AHA Diet (Heart Healthy), Diabetes Type 2 Diet Pending Studies Studies pending at discharge: no Physician Orders On Transfer Special Precautions: FALL AND ASPIRATION PRECAUTIONS Vital Signs: EVERY 8HRS Additional Orders: PLEASE DO BLADDER SCAN THREE TIMES DAILY AND STRAIGHT CATH OR MANDEL IF RESIDUAL > 350ML AND FOLLOWUP WITH UROLOGY.( STOPPED FLOMAX FOR ORTHOSTATIC HYPOTENSION). PLEASE CHECK BLOOD SUGARS AC AND HS AND ADJUST INSULIN REGIMEN LEASE FOLLOW PT/INR AND ADJUST COUMADIN DOSING. FOLLOWUP WITH COUMADIN CLINIC. TWO STEP PRIOR TO DISCHARGE FROM REHAB. Laboratory Results Hemoglobin A1c Test 12/15/17 15:40 Range/Units Estimated Average Glucose 252 mg/dl Hemoglobin A1c 10.4 H 4.5-5.6 % Medical Emergencies . Who to Call and When: Medical Emergencies: If at any time you feel your situation is an emergency, please call 911 immediately. . Non-Emergent Contact Non-Emergency issues call your: Primary Care Provider . . "Provider Documentation" section prepared by Ronnie Singleton. . Core Measure Problem Core Measures: None
[2018-01-19 15:24] VITALS: BP 100/65; PULSE 70; TEMP 36.3; O2SAT 99
--- NOTE | 2018-01-19 15:25 | Discharge Summary ---
Discharge Summary Date of Service Jan 19, 2018. Discharge Summary Admission Date: Dec 15, 2017 at 16:59 Discharge Date: Jan 19, 2018 Discharge Disposition: Rehab Principal Diagnosis: ACUTE RESP FAILURE FLU MSSA PNEUMONIA OKSANA ORTHOSTATIC HYPOTENSION THROMBOCYTOPENIA DVT CHRONIC? DECONDITIONING NECK PAIN AMIODARONE LUNG TOXICITY Secondary Diagnoses/Problems: Aflutter on Coumadin , Type 2 DM , HTN BPH Procedures: CXR: Subtle left basal airspace opacity suspicious for a pneumonia. Films subsequent to treatment are recommended in follow-up. CHEST CT 12/26/17: 1. There is multifocal groundglass consolidation as detailed above. The appearance is typical for an infectious/inflammatory pneumonitis. Clinical correlation will be required and radiographic follow-up to resolution is recommended. 2. Small pleural effusions. 3. Cardiomegaly and mild emphysema. 4. Cholelithiasis and nonobstructing left-sided nephrolithiasis. 5. Prominent mediastinal lymph nodes are likely on a reactive basis. CHEST CT 01/01/18: 1. Persistent multifocal multilobar distribution of groundglass and consolidative opacities as above with mildly improved aeration of the lingula. Disease within the left lower and right upper lobes demonstrate increased consolidation from comparison. 2. Trace right pleural effusion appears unchanged with resolution of the previously described trace left pleural effusion. 3. Slightly decreased adenopathy of the mediastinum, likely reactive. 4. Layering increased attenuation of the gallbladder lumen suggests cholelithiasis. 5. Emphysema. VENOUS DOPPLER: Age indeterminate deep venous thrombus within the right popliteal and peroneal veins. CERVICAL SPINE CT: 1. Moderate multilevel spondylitic changes. 2. Probable C4-5 disc bulge/protrusion. 3. Mild multilevel spinal stenosis. Multilevel foraminal narrowing. 4. No acute fractures identified. CERVICAL SPINE MRI: 1. Moderate multilevel cervical spondylosis as detailed above. See discussion for detailed [id number] analysis. 2. No destructive bony process is seen. 3. The cervical spinal cord is normal in morphology and signal intensity. ECHO 12/27/17: This is a technically limited study. * Normal left and right ventricular size and systolic function. * The estimated left ventricular ejection fraction is 65-70%. * Normal size left and right atrium. * Grossly normal valves. ECHO 01/03/18: * A focused echocardiogram was performed per provider request for reassessment of biventricular systolic function given history of DVT and hypoxia. * The left ventricle is normal in size. * There is mild concentric left ventricular hypertrophy. * No regional wall motion abnormalities noted. * The LV ejection Fraction = 60-65%. * The right ventricle is normal in size and function. * There is mild tricuspid regurgitation. * Doppler findings do not suggest pulmonary hypertension. * Inferior vena cava was not well-visualized and therefore the right atrial pressure cannot be estimated Consultations: ,DR.Tom Laird, AND -[facility]-Dalton Leigh MD CRITICAL CARE- PULMONARY-, ID- Medication Reconciliation New Medications: Acetaminophen (Tylenol) 325 Mg Tab 325 MG PO Q6 PRN for Pain, #30 TAB Finasteride (Proscar) 5 Mg Tab 1 TAB PO DAILY for 30 Days, #30 TAB 1 Refill Insulin Glargine (Lantus Solostar) 100 Unit/Ml Inj 18 UNITS SC DAILY, #1 1 Refill Insulin Aspart (Novolog Flexpen) 100 Units/Ml Inj 0 UNITS SC 1100,1630,2100 for 30 Days, 1 Refill INSULIN SLIDING SCALE: GOAL RANGE 120MG/DL TO 160MG/DL CORRECTION FACTOR 30MG/DL/UNIT CARB RATIO= 1 UNIT PER 12GMS OF CARBS CONSUMED Warfarin Sod (Coumadin) 2 Mg Tab 2 MG PO DAILY@1600, #30 TAB 1 Refill Continued Medications: Cholecalciferol (Vitamin D3) 2,000 Unit Tab 2000 UNITS PO DAILY Omeprazole (Prilosec) 20 Mg Capcr 20 MG PO DAILY Discontinued Medications: Amiodarone HCl (Amiodarone HCl) 200 Mg Tab 200 MG PO DAILY Insulin Glargine (Lantus) 100 Unit/Ml Inj 22 UNITS SC DAILY Lisinopril (Zestril) 20 Mg Tab 20 MG PO BID Tamsulosin Hcl (Flomax) 0.4 Mg Cap 0.4 MG PO BID Warfarin Sod (Coumadin) 5 Mg Tab 2.5-5 MG PO UD PER MED LIST, TAKE 1/2 - 1 TABLET (OF A 5 MG TABLET) PO DAILY, DIRECTED. Admission Information HPI (per Admitting provider): 87 yo M with past medical hx of Aflutter on Coumadin , Type 2 DM , HTN was seen at [facility] for ongoing non productive cough for 2 weeks found to be markedly hypoxic sent to ER , on arrival to ER pt's Spo2 was 86 % in RA improved to 95 % with 2 L 02 via nasal canula denies of any flu like symptom -no fever , body ache, or headache has been feeling very tired and wiped out Cxray showed L lower lobe pneumonia HHS with Hyperglycemia BSG > 300 , elevated beta hydroxybutyrate level , OKSANA Physical Exam (per Admitting): General Appearance: no apparent distress Head: normocephalic, atraumatic Eyes: PERRL, EOMI, sclerae normal Neck: no JVD, no carotid bruits, trachea midline Respiratory/Chest: + decreased breath sounds, + crackles (at base ) Cardiovascular: regular rate, rhythm, no JVD, normal peripheral pulses Abdomen/GI: normal bowel sounds, non tender, soft Extremities/Musculoskelatal: normal inspection, no calf tenderness, normal capillary refill, no pedal edema Neurologic/Psych: no motor/sensory deficits, alert, normal mood/affect, oriented x 3 Hospital Course 87M presented with sob and found to have Influenza A. An developed superimposed pneumonia. Sputum cx MSSA. treated with multiple abx. Ct was showing increased infiltrates and was also placed on antifungals but as fungal studies negative it was stopped. Also received diuretics for volume overload. Slowly Resp status improved. But very much deconditioned. requires rehab placement. Currently having orthostatic hypotension limiting pt/ot. Cardiology cut back on Flomax to once daily and stopped diuretic(patient was not on diuretic at home as per epic) .Still somewhat orthostatic today. received gentle fluids But still orthostatic. To hold stating on fludrocortisone as per cardiology. 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 Stopped Flomax stopped altogether. Started on Proscar.on TEds. Orthostatic hypotension getting better but can stop Proscar too as he is not on it at home and also can cause orthostatic hypotension. MRI cervical spine for neck pain moderate stenosis. conservative measures and f/u with orthopedics. Plan for Rehab today ACUTE HYPOXEMIC RESPIRATORY FAILURE- Presented with SOB /cough for 1 week and noted to have spo2 86 in RA , improved with supplemental 02 Secondary to pneumonia FLU was positive but was not treated as he had symptoms > 1 week later developed pneumonia sputum cx growing MSSA was transferred to ICU as repeat ct chest showed worsening infiltration amiodarone was stopped for possible amiodarone toxicity received Lasix for fluid overload Appreciate pulmonary and critical care inputs received broad spectrum abx Was on voriconazole - stopped by pulmonary consulted ID for further recommendations on abx improving slowly. continue to be weak and deconditioned NEEDS TWO STEP PRIOR TO DISCHARGED HOME To continue pt/ot Orthostatic hypotension limiting pt/ot-improving Rehab today BILATERAL MULTILOBAR PNEUMONIA pneumonia in setting of FLU Started on IV Zosyn ( for pseudomonal coverage in setting of Type 2 DM / hyperglycemia ) Blood CULTURE-NEGATIVE and sputum culture :Staph Aureus.MSSA Received Vancomycin ,Changed to Ceftriaxone and Doxycycline received Zyvox and Zosyn Received Solumedrol and Prednisone-discontinued on 01/02/18 Pulmonary consulted-appreciate input received multiple abx off of abx currently pt/ot resolved 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 cortisol level unremarkable teds somewhat better today to stop proscar too if still has orthostatic hypotension continue to monitor Deconditioning from prolonged hospital stay orthostatic hypotension limiting pt/ot plan for rehab today HYPERGLYCEMIA WITH TYPE 2 DM On Lantus 22 U HS Started on IV insulin protocol currently on Lantus and iss Pharmacy consulted for glycemic management Hb A1c 9.8 on 09/2017 Hb A1c 10.4 now close monitor OKSANA ON CKD STAGE 3 due to above received fluids held torsemide baseline cr 1.7 to 1.8 cr 1.4 continue to monitor HYPONATREMIA : Due to hyperglycemia received fluids follow PRP -normalized Thrombocytopenia Abx induced? which is stopped now appreciate heme/onco input resolved HX OF A FLUTTER : Rate and rhythm controlled amiodarone stopped On Coumadin 2mg daily inr 2.8 f/u inr HTN on lisinopril at home which is stopped now as BP ok and having orthostatic hypotension. DVT chronic? on Coumadin as above BPH stopped Flomax secondary to orthostatic hypotension started on proscar and can stop it if still has significant orthostatic hypotension to check for urinary retention and may need mandel until seen by Urology Neck pain Ct scan showed Probable C4-5 disc bulge/protrusion and multilevel spondylitic changes seen by ortho and recommends conservative measures for now and f/u outpatient MRI done today shows Moderate multilevel cervical spondylosis. The cervical spinal cord is normal in morphology and signal intensity f/u with orthopedics FULL CODE DISPOSITION : Discharging to rehab today followup with pcp, cardiology, urology and orthopedics Total time spent on discharge = 45MINUTES This includes examination of the patient, discharge planning, medication reconciliation, and communication with other providers. Discharge Instructions Discharge Instructions Date of Service Jan 19, 2018. Admission Reason for Admission: Hyperglycemia Due To Type 2 Diabetes Mellitus Discharge Discharge Diagnosis / Problem: ACUTE RESP FAILURE, flu, mssa Pneumonia, OKSANA, Orthostatic hypotension, Discharge Goals Goal(s): Decrease discomfort, Improve function Activity Recommendations Activity Level: Assistance Required Therapies: Physical Therapy, Occupational Therapy . Additional Information Patient informed of condition: Yes Advance Directives: Yes DNR: No Level of Care: Acute Rehab Communicable Disease: No Prognosis: Stable Oxygen at (LPM): 1-2lts via nasal canula Mandel Catheter: No Instructions / Follow-Up Instructions / Follow-Up FOLLOWUP WITH FAMILY DOCTOR IN NE WEEK ON DISCHARGE FOLLOWUP WITH CARDIOLOGY IN 2-3 WEEKS FOLLOWUP WITH UROLOGY IN 2-3 WEEKS FOLLOWUP WITH ORTHOPEDICS IN 2-3 WEEKS. PLEASE DO BLADDER SCAN THREE TIMES DAILY AND STRAIGHT CATH OR MANDEL IF RESIDUAL > 350ML AND FOLLOWUP WITH UROLOGY.( STOPPED FLOMAX FOR ORTHOSTATIC HYPOTENSION) .Can STOPPED PROSCAR IF STILL HAS SIGNIFICANT ORTHOSTATIC HYPOTENSION PLEASE CHECK BLOOD SUGARS AC AND HS AND ADJUST INSULIN REGIMEN LEASE FOLLOW PT/INR AND ADJUST COUMADIN DOSING. FOLLOWUP WITH COUMADIN CLINIC. TWO STEP PRIOR TO DISCHARGE FROM REHAB. Current Hospital Diet Patient's current hospital diet: Diabetes Type 2 Diet Discharge Diet Recommended Diet: AHA Diet (Heart Healthy), Diabetes Type 2 Diet Pending Studies Studies pending at discharge: no Physician Orders On Transfer Special Precautions: FALL AND ASPIRATION PRECAUTIONS Vital Signs: EVERY 8HRS Additional Orders: PLEASE DO BLADDER SCAN THREE TIMES DAILY AND STRAIGHT CATH OR MANDEL IF RESIDUAL > 350ML AND FOLLOWUP WITH UROLOGY.( STOPPED FLOMAX FOR ORTHOSTATIC HYPOTENSION). PLEASE CHECK BLOOD SUGARS AC AND HS AND ADJUST INSULIN REGIMEN LEASE FOLLOW PT/INR AND ADJUST COUMADIN DOSING. FOLLOWUP WITH COUMADIN CLINIC. TWO STEP PRIOR TO DISCHARGE FROM REHAB. Laboratory Results Hemoglobin A1c Test 12/15/17 15:40 Range/Units Estimated Average Glucose 252 mg/dl Hemoglobin A1c 10.4 H 4.5-5.6 % Medical Emergencies . Who to Call and When: Medical Emergencies: If at any time you feel your situation is an emergency, please call 911 immediately. . Non-Emergent Contact Non-Emergency issues call your: Primary Care Provider . . "Provider Documentation" section prepared by Ronnie Singleton. . Core Measure Problem Core Measures: None
[2018-01-19] MEDS ORDERED: ACET-1175 PO (15:32)
[2018-01-19] MEDS: WARFARIN SOD 2 MG TAB PO SCH (15:38)
[2018-01-19 15:44] VITALS: BP 100/65; PULSE 70; TEMP 36.3; O2SAT 99
[2018-01-19] MEDS ORDERED: FINA5TAB4 PO ×3 (16:38→16:50)
== END 2018-01-19 17:13 | DRG 177 ==
LOC: C.EDB 14:03 → C.MED 16:59 → ENRESERV 17:09 → CANRESERV 12-24 01:55 → ENRESERV 12-24 01:55 → CANBEDREQ 12-24 02:51 → ENRESERV 12-30 10:38 → C.MSICU 12-30 12:52 → ENRESERV 01-06 04:22 → C.MED 01-06 04:53 → ENRESERV 01-13 12:56 → CANBEDREQ 01-13 15:35
PROVIDERS: ADMIT Hospitalist; ATTEND Internal Medicine
DX: J10.00 Influenza due to other identified influenza virus with unspecified type of pneumonia (principal); J15.211 Pneumonia due to Methicillin susceptible Staphylococcus aureus; J96.01 Acute respiratory failure with hypoxia; N17.9 Acute kidney failure, unspecified; E87.1 Hypo-osmolality and hyponatremia; I48.92 Unspecified atrial flutter; J80 Acute respiratory distress syndrome; I82.431 Acute embolism and thrombosis of right popliteal vein; E11.65 Type 2 diabetes mellitus with hyperglycemia; I12.9 Hypertensive chronic kidney disease with stage 1 through stage 4 chronic kidney disease, or unspecified chronic kidney disease; M54.2 Cervicalgia; N28.9 Disorder of kidney and ureter, unspecified; N18.3 Chronic kidney disease, stage 3 (moderate); D72.829 Elevated white blood cell count, unspecified; A49.01 Methicillin susceptible Staphylococcus aureus infection, unspecified site; E86.0 Dehydration; J44.9 Chronic obstructive pulmonary disease, unspecified; I48.0 Paroxysmal atrial fibrillation; T46.2X1A Poisoning by other antidysrhythmic drugs, accidental (unintentional), initial encounter; I95.1 Orthostatic hypotension; D69.6 Thrombocytopenia, unspecified; G89.29 Other chronic pain; Z87.01 Personal history of pneumonia (recurrent); Z79.4 Long term (current) use of insulin; Z87.891 Personal history of nicotine dependence

== ENCOUNTER 2018-01-31 10:02 | Inpatient (IN) | payer OTHER ==
[2018-01-31] VITALS (7 sets, daily range): BP systolic 102–103; BP diastolic 51–59; PULSE 83–93; TEMP 37.2–37.3; O2SAT 92–98
[~2018-01-31] VITALS: Ht 182.9 cm; Wt 75.2 kg
[~2018-01-31 10:02] MED LIST changes: -AMIO200T4 PO; -ASPI81TA21 PO; -CHOL100010 PO; +CHOL20007 PO; +CMD2 PO; +FINA5TAB4 PO; +INSDGIPEN SC; -INSUINJ4 SC; -LISI20TA3 PO; -MAGNTAB4 PO; +NVLGIPEN SC; +PRLSR20 PO; -TAMS0.4C59 PO; -WARF5INJ PO
[2018-01-31] MEDS ORDERED: VANCOMYCIN 1GM ED/ASU OMNICELL IV STA (10:30)
[2018-01-31] MEDS ORDERED: PIPERACILLIN/TAZOBACTAM 4.5 GM/100ML D5W IV STA (10:30)
[2018-01-31] MEDS ORDERED: SODIUM CHLORIDE 0.9% 1000ML 250 ML IV ONE (10:30)
[2018-01-31] MEDS ORDERED: LEVAQUIN 750MG / 150ML D5W IV STA (10:30)
[2018-01-31] MEDS ORDERED: ACETAMINOPHEN 325 MG TAB PO ONE (10:30)
--- NOTE | 2018-01-31 10:42 | EMERGENCY ROOM VISIT NOTE ---
History Report prepared by Jacob: Martin Del Castillo Under the Supervision of: Dr. Tj Joy M.D. First contact with patient: 10:26 Chief Complaint: RESPIRATORY PROBLEMS Stated Complaint: RESPIRATORY Nursing Triage Summary: Patient presents via ALS ambulance from [facility] to room B11B with respiratory difficulty Patient has been at [facility] for the last 2 weeks after being inpatient at [facility] for 5 weeks with pneumonia, influenza and other complications He states he has had continued nonproductive cough and difficulty breathing while at [facility] States he has been miserable Family at bedside History of Present Illness The patient is an 87 year old white male with a past medical history of hyperglycemia due to type 2 diabetes mellitus, pneumonia, prolonged Q-T interval on ECG, reduced LVEF who presents to the Emergency Room with complaints of persistent shortness of breath that the patient has been experiencing for the past 7 weeks. The patient is also complaining of a persistent productive cough that has been producing a clear mucous. The patient was discharged on the of last month after a nearly 5 week stay as an inpatient and 2 weeks in [facility] for pneumonia and influenza. The patient is not typically on a nasal cannula, but has been for the past 7 weeks. Source of History: patient, family Onset: 7 weeks Position: chest Quality: other (SOB) Timing: other (persistent) Associated Symptoms: + cough Review of Systems See HPI for pertinent positives and negatives. A total of ten systems were reviewed and were otherwise negative. Past Medical & Surgical Medical Problems: (1) Atrial flutter (2) Benign hypertension (3) Chronic kidney disease stage 3 (4) Diabetes mellitus type 2 (5) Hyperglycemia due to type 2 diabetes mellitus (6) Pneumonia (7) Prolonged Q-T interval on ECG (8) Reduced LVEF Family History Omitted secondary to age. Social History Smoking Status: Former Smoker Drug Use: none Marital Status: Housing Status: lives with significant other Occupation Status: retired Current/Historical Medications Scheduled Cholecalciferol (Vitamin D3), 2,000 UNITS PO DAILY Docusate Sodium (Docusate Sodium), 100 MG PO BID Guaifenesin-Codeine (Guaifenesin/Codeine), 10 ML PO Q6 Insulin Aspart (Novolog), 0-12 UNITS SC ACHS Insulin Glargine (Lantus Solostar), 10 UNITS SC QAM Insulin Glargine (Lantus Solostar), 20 UNITS SC HS Pantoprazole (Protonix), 40 MG PO DAILY Tamsulosin Hcl (Flomax), 0.4 MG PO HS Warfarin Sod (Coumadin), 1 TAB PO DAILY Scheduled PRN Acetaminophen (Tylenol), 500 MG PO Q4 PRN for OTHER Albuterol Sulf (Proventil 0.083% 2.5MG/3ML), 2.5 MG NEB Q4H PRN for Shortness of Breath Bisacodyl (Dulcolax), 10 MG PO UD PRN for Constipation Tramadol (Ultram), 50 MG PO Q4H PRN for Pain Allergies Coded Allergies: No Known Allergies (Unverified , 05/19/13) Physical Exam Vital Signs Date Time Temp Pulse Resp B/P (MAP) Pulse Ox O2 Delivery O2 Flow Rate FiO2 01/31/18 12:02 82 21 110/57 96 Nasal Cannula 6.0 01/31/18 11:00 90 22 101/51 Nasal Cannula 6.0 01/31/18 11:00 84 28 119/62 95 Nasal Cannula 6.0 01/31/18 10:30 93 20 109/48 95 Nasal Cannula 6.0 01/31/18 10:25 100 24 117/54 94 Nasal Cannula 6.0 01/31/18 10:21 Nasal Cannula 01/31/18 10:10 74 Room Air 01/31/18 10:10 101 01/31/18 10:10 91 Nasal Cannula 6.0 01/31/18 10:10 38.0 100 24 96/68 74 Room Air 01/31/18 10:10 94 Nasal Cannula 6.0 Physical Exam GENERAL: Awake, alert, mildly ill-appearing, in mild respiratory distress HENT: Normocephalic, atraumatic. EYES: Normal conjunctiva. Sclera non-icteric. NECK: Supple. No nuchal rigidity. FROM. RESPIRATORY: There is diffuse rales throughout, nasal cannula is in place, no rhonchi, wheezing, crackles CARDIAC: RRR, no MRG ABDOMEN: Soft, NTND, BS+ MSK: No chest wall TTP, no LE edema, no calf pain NEURO: GCS 15, CN 2-12 intact, moves all 4s on command SKIN: No rash or jaundice noted. Medical Decision & Procedures ER Provider Diagnostic Interpretation: Radiology results as stated below per my review and radiologist interpretation: CHEST ONE VIEW PORTABLE HISTORY: Sepsis COMPARISON: Chest 01/06/2018. FINDINGS: No significant change in the right upper lobe and left basilar consolidation. Right basilar interstitial thickening persists. Left upper lobe nodular airspace opacity is also noted. Trace bilateral pleural effusions. The heart is stable in size. No pneumothorax. IMPRESSION: No change in the bilateral airspace opacities and trace bilateral pleural effusions. Electronically signed by: Eric Chin M.D. 01/31/2018 11:06 AM Dictated Date/Time: 01/31/2018 11:04 AM Laboratory Results 01/31/18 10:30 Red Blood Count 3.83, Mean Corpuscular Volume 95.6, Mean Corpuscular Hemoglobin 29.5, Mean Corpuscular Hemoglobin Concent 30.9, Mean Platelet Volume 9.2, Neutrophils (%) (Auto) 63.9, Lymphocytes (%) (Auto) 22.3, Monocytes (%) (Auto) 10.9, Eosinophils (%) (Auto) 1.5, Basophils (%) (Auto) 0.4, Neutrophils # (Auto ) 8.06, Lymphocytes # (Auto) 2.82, Monocytes # (Auto) 1.37, Eosinophils # (Auto ) 0.19, Basophils # (Auto) 0.05 01/31/18 10:30 Test 01/31/18 10:30 01/31/18 10:44 01/31/18 11:35 White Blood Count 12.62 K/uL (4.8-10.8) Red Blood Count 3.83 M/uL (4.7-6.1) Hemoglobin 11.3 g/dL (14.0-18.0) Hematocrit 36.6 % (42-52) Mean Corpuscular Volume 95.6 fL (80-100) Mean Corpuscular Hemoglobin 29.5 pg (25-34) Mean Corpuscular Hemoglobin Concent 30.9 g/dl (32-36) Platelet Count 202 K/uL (130-400) Mean Platelet Volume 9.2 fL (7.4-10.4) Neutrophils (%) (Auto) 63.9 % Lymphocytes (%) (Auto) 22.3 % Monocytes (%) (Auto) 10.9 % Eosinophils (%) (Auto) 1.5 % Basophils (%) (Auto) 0.4 % Neutrophils # (Auto) 8.06 K/uL (1.4-6.5) Lymphocytes # (Auto) 2.82 K/uL (1.2-3.4) Monocytes # (Auto) 1.37 K/uL (0.11-0.59) Eosinophils # (Auto) 0.19 K/uL (0-0.5) Basophils # (Auto) 0.05 K/uL (0-0.2) RDW Standard Deviation 57.3 fL (36.4-46.3) RDW Coefficient of Variation 16.5 % (11.5-14.5) Immature Granulocyte % (Auto) 1.0 % Immature Granulocyte # (Auto) 0.13 K/uL (0.00-0.02) Prothrombin Time 15.3 SECONDS (9.0-12.0) Prothromb Time International Ratio 1.5 (0.9-1.1) Activated Partial Thromboplast Time 30.8 SECONDS (21.0-31.0) Partial Thromboplastin Ratio 1.2 Anion Gap 7.0 mmol/L (3-11) Estimated GFR () 51.5 Estimated GFR (Non- 44.4 BUN/Creatinine Ratio 14.7 (10-20) Calcium Level 7.8 mg/dl (8.5-10.1) Phosphorus Level 2.4 mg/dl (2.5-4.9) Magnesium Level 1.7 mg/dl (1.8-2.4) Total Bilirubin 0.8 mg/dl (0.2-1) Aspartate Amino Transf (AST/SGOT) 32 U/L (15-37) Alanine Aminotransferase (ALT/SGPT) 21 U/L (12-78) Alkaline Phosphatase 94 U/L (45-117) Troponin I < 0.015 ng/ml (0-0.045) Pro-B-Type Natriuretic Peptide 990 pg/ml (0-1800) Total Protein 5.8 gm/dl (6.4-8.2) Albumin 2.3 gm/dl (3.4-5.0) Globulin 3.5 gm/dl (2.5-4.0) Albumin/Globulin Ratio 0.7 (0.9-2) Bedside Lactic Acid Venous 1.69 mmol/L (0.90-1.70) Influenza Type A Antigen Neg for Influ A (NEG) Influenza Type B Antigen Neg for Influ B (NEG) Laboratory results reviewed by me Medications Administered Medications (Trade) Dose Ordered Sig/Krystal Route Start Time Stop Time Status Last Admin Dose Admin Sodium Chloride 250 ml @ 999 mls/hr Q16M ONCE IV 01/31/18 10:30 01/31/18 10:45 DC 01/31/18 10:30 999 MLS/HR Piperacillin Sod/ Tazobactam Sod (Zosyn Iv) 4.5 gm ONE STAT IV 01/31/18 10:30 01/31/18 10:32 DC 01/31/18 11:24 4.5 GM Vancomycin HCl (Vancomycin 1gm Ed/Asu Omnicell) 1 gm ONE STAT IV 01/31/18 10:30 01/31/18 10:32 DC 01/31/18 11:56 1 GM Levofloxacin (Levaquin / D5W) 750 mg ONE STAT IV 01/31/18 10:30 01/31/18 10:32 DC 01/31/18 12:13 750 MG Acetaminophen (Tylenol Tab) 650 mg ONE ONCE PO 01/31/18 10:30 01/31/18 10:32 DC 01/31/18 11:23 650 MG Calcium Gluconate (Calcium Gluconate 10%) 1,000 mg NOW STAT IV 01/31/18 11:49 01/31/18 11:50 DC 01/31/18 13:17 1,000 MG Magnesium Oxide (Mag-Ox Tab) 800 mg ONE STAT PO 01/31/18 11:49 01/31/18 11:50 DC 01/31/18 13:17 800 MG Potassium/ Phosphorus/Sodium (Phospha 250 Neutral 155-852-130 Mg) 2 tab ONE STAT PO 01/31/18 11:50 01/31/18 11:51 DC 01/31/18 13:17 2 TAB ED Course 1034: The patient was evaluated in room B11B. A complete history and physical exam was performed. 1030: Ordered Tylenol 650 mg PO, Levaquin 750 mg Iv, Vancomycin HCl 1 gm IV, Zosyn 4.5 gm IV, Sodium Chloride 250 mL @ 999 mL/hr IV. 1147: I discussed the case with Julisa [facility] Hospitalist CARLOS at this time. She will evaluate the patient for further treatment. 1149: ordered Magnesium Oxide 800 mg PO, Calcium Gluconate 1000 mg IV. 1150: Ordered Potassium/Phosphorus/Sodium 2 tablets PO. Medical Decision The patient is an 87 year old white male with a past medical history of hyperglycemia due to type 2 diabetes mellitus, pneumonia, prolonged Q-T interval on ECG, reduced LVEF who presents to the Emergency Room with complaints of persistent shortness of breath that the patient has been experiencing for the past 7 weeks. Differential diagnosis: Etiologies such as infections, reactive airway disease, pneumonia, pneumothorax , COPD, CHF, cardiac ischemia, pulmonary embolism, musculoskeletal, gastrointestinal, as well as others were entertained. Patient was seen and evaluated the bedside. Patient does have a recent history of multifocal pneumonia status post discharge after month-long stay in the hospital and then a stay at [facility]. Patient is presented with some productive cough and shortness of breath. On exam the patient does have coarse breath sounds throughout, fever and tachycardia. Patient did have blood work completed using a sepsis protocol. Initially the patient was only given 500 of IV fluids to see if one he was responsive to the fluids especially given that the patient has had some issues with volume overload in the past. The patient had have a mild white blood cell count of 12, 000. Patient's lactate was not elevated. Patient did have multiple electrolyte abnormalities which are repleted here in the emergency department. Patient's chest x-ray does show unresolved bilateral opacities. Given the patient's coarse breath sounds, fever, and symptoms he was treated empirically with broad-spectrum antibiotics concerning for healthcare associated pneumonia. The patient was also hypoxic initially. I did discuss the patient with the on -call hospitalist who agreed to further evaluate and treat the patient. Medication Reconcilliation Current Medication List: was personally reviewed by nj Blood Pressure Screening Patient's blood pressure: Normal blood pressure Consults Time Called: 1140 [facility]ing Phys[facility] Returned Call: 1141 I discussed the case with [facility] GONZALEZ at this time. She will evaluate the patient for further treatment. Impression Primary Impression: Sepsis Additional Impressions: Healthcare-associated pneumonia Hypocalcemia Hypomagnesemia Hypophosphatemia Acute respiratory failure with hypoxia Critical Care I have personally spent greater than 40 minutes of critical care time in the direct management of this patient. This includes bedside care, interpretation of diagnostic studies, and testing, discussion with consultants, patient, and family members, and other required patient management activities. This 40 minutes is in excess of all separately billable procedures. Scribe Attestation The scribe's documentation has been prepared under my direction and personally reviewed by me in its entirety. I confirm that the note above accurately reflects all work, treatment, procedures, and medical decision making performed by me. Departure Information Dispostion Being Evaluated By Hospitalist Referrals Angelia Ward M.D. (MEDICAL) (PCP) Patient Instructions My [facility] Problem Qualifiers Primary Impression: Sepsis Sepsis type: sepsis due to unspecified organism Qualified Codes: A41.9 - Sepsis, unspecified organism
[2018-01-31 10:54] LABS: BASO % 0.4 %; BASO ABS # 0.05 K/uL (0-0.2); EOS % 1.5 %; EOS ABS # 0.19 K/uL (0-0.5); HEMATOCRIT 36.6 % (42-52); HEMOGLOBIN 11.3 g/dL (14.0-18.0); IG# 0.13 K/uL (0.00-0.02); LYMPH % 22.3 %; LYMPH ABS # 2.82 K/uL (1.2-3.4); MEAN CELL VOLUME 95.6 fL (80-100); MEAN CORPUSCULAR HEMOGLOBIN 29.5 pg (25-34); MEAN CORPUSCULAR HGB CONC 30.9 g/dl (32-36); MEAN PLATELET VOLUME 9.2 fL (7.4-10.4); MONO % 10.9 %; MONO ABS # 1.37 K/uL (0.11-0.59); NEUT % 63.9 %; NEUT ABS # 8.06 K/uL (1.4-6.5); PLATELET COUNT 202 K/uL (130-400); RED CELL DISTRIBUTION WIDTH CV 16.5 % (11.5-14.5); RED CELL DISTRIBUTION WIDTH SD 57.3 fL (36.4-46.3); WHITE BLOOD COUNT 12.62 K/uL (4.8-10.8)
[2018-01-31] MEDS ORDERED: BISA-16 PO (11:01)
[2018-01-31] MEDS ORDERED: GUAI100S6 PO (11:01)
[2018-01-31] MEDS ORDERED: TAMS0.4C38 PO (11:01)
[2018-01-31] MEDS ORDERED: WARF1TAB6 PO (11:01)
[2018-01-31] MEDS ORDERED: ACET-1256 PO (11:01)
[2018-01-31] MEDS ORDERED: NVLG SC (11:01)
[2018-01-31] MEDS ORDERED: INSDGIPEN SC ×2 (11:01)
[2018-01-31] MEDS ORDERED: ALBINS/ NEB (11:01)
[2018-01-31] MEDS ORDERED: DOCU100C31 PO (11:01)
[2018-01-31] MEDS ORDERED: TRAM-10 PO (11:01)
[2018-01-31] MEDS ORDERED: PANT40TA PO (11:01)
[2018-01-31 11:02] LABS: INR 1.5 (0.9-1.1); PTT PATIENT 30.8 SECONDS (21.0-31.0)
[2018-01-31 11:06] LABS: ALBUMIN 2.3 gm/dl (3.4-5.0); ALT/SGPT 21 U/L (12-78); AST/SGOT 32 U/L (15-37); BLOOD UREA NITROGEN 21 mg/dl (7-18); CALCIUM 7.8 mg/dl (8.5-10.1); CARBON DIOXIDE 29 mmol/L (21-32); CREATININE 1.42 mg/dl (0.60-1.40); GLUCOSE 191 mg/dl (70-99); POTASSIUM 4.3 mmol/L (3.5-5.1); SODIUM 132 mmol/L (136-145)
--- NOTE | 2018-01-31 11:08 | DIAGNOSTIC IMAGING REPORT ---
CHEST ONE VIEW PORTABLE HISTORY: Sepsis COMPARISON: Chest 01/06/2018. FINDINGS: No significant change in the right upper lobe and left basilar consolidation. Right basilar interstitial thickening persists. Left upper lobe nodular airspace opacity is also noted. Trace bilateral pleural effusions. The heart is stable in size. No pneumothorax. IMPRESSION: No change in the bilateral airspace opacities and trace bilateral pleural effusions. Electronically signed by: Eric Chin M.D. 01/31/2018 11:06 AM Dictated Date/Time: 01/31/2018 11:04 AM
[2018-01-31 11:11] LABS: ALKALINE PHOSPHATASE 94 U/L (45-117); PHOSPHORUS 2.4 mg/dl (2.5-4.9); TOTAL PROTEIN 5.8 gm/dl (6.4-8.2)
[2018-01-31] MEDS ORDERED: CALCIUM GLUCONATE 10% 10 ML VIAL IV STA (11:49)
[2018-01-31] MEDS ORDERED: MAGNESIUM OXIDE 400 MG TAB PO STA (11:49)
[2018-01-31] MEDS ORDERED: POT PHOSPHATE MONOBASIC W/ SOD TAB PO STA (11:50)
[2018-01-31 12:01] LABS: INFLUENZA B ANTIGEN Neg for Influ B (NEG)
[2018-01-31] MEDS ORDERED: NITROGLYCERIN 0.4 MG SL PER TAB CHARGE SL PRN (13:15)
[2018-01-31] MEDS ORDERED: ACETAMINOPHEN 325 MG TAB PO PRN (13:15)
[2018-01-31] MEDS ORDERED: VANCOMYCIN CONSULT ACTIVE PRN (13:27)
[2018-01-31] MEDS ORDERED: PIPERACILL/TAZOBAC CONSULT ACTIVE PRN (13:30)
[2018-01-31] MEDS ORDERED: DEXTROSE 50% 50 ML SYR IV PRN (14:15)
[2018-01-31] MEDS ORDERED: LEVALBUTEROL/IPRATROPIUM NEB INH PRN (14:15)
[2018-01-31] MEDS ORDERED: GLUCAGON FOR INJ 1 MG VIAL SQ PRN (14:15)
[2018-01-31] MEDS ORDERED: GLUCOSE 10 TABS/TUBE PO PRN (14:15)
[2018-01-31] MEDS ORDERED: GLUCOSE 40% GEL 15 GM TUBE PO PRN (14:15)
[2018-01-31] MEDS ORDERED: CMD2 PO (14:17)
[2018-01-31] MEDS ORDERED: TRAMADOL HCL 50 MG TAB PO PRN (14:30)
[2018-01-31] MEDS ORDERED: PHARMACY GLYCEMIC MGMT CONSULT PRN (14:31)
[2018-01-31] MEDS ORDERED: LEVALBUTEROL/IPRATROPIUM NEB INH SCH (15:00)
[2018-01-31] MEDS ORDERED: PATIENT'S HEIGHT AND/OR WEIGHT NEEDED SCH (15:00)
--- NOTE | 2018-01-31 15:18 | History and Physical ---
History & Physical Date & Time of Service: Jan 31, 2018 at 13:38 Chief Complaint: Respiratory Primary Care Physician: No Doctor, Assigned History of Present Illness Source: patient, family, clinic records, hospital records Pt is 87 y/o M with PMH DM II, CKD III, HTN, a flutter on Coumadin presented to ER with complaints of increased cough and shortness of breath. Patient was admitted to hospital 12/15/17-01/19/18 for acute respiratory failure, influenza A , MSSA pneumonia, OKSANA and discharged to [facility]. Patient was treated with Zosyn, course of azithromycin. Rocephin from 12/15/17-. Vancomycin on 12/17/17. Also was on Zyvox and for voriconazole, doxycycline on 12/18/17-12/22/17 blood cultures were negative. Patient was seen by cardiology, pulmonology, infectious disease during last admission. Developed thrombocytopenia. Amiodarone was stopped during last admission secondary to possible lung toxicity. Flomax was stopped secondary to orthostatic hypotension. Patient reports has been feeling sick since discharge and having difficulty doing physical therapy secondary to weakness, shortness of breath with exertion and neck pain. Reports continued cough productive of clear sputum. Feels cough is worse in the past couple of days. Patient admits has not been doing his incentive spirometry as directed. He has been wearing PERRY hose and reports lower extremity edema. Patient reports wearing oxygen 1 L NC at rest and 3 mL with exertion. Family reports noticed yesterday his oxygen was turned up to 7L in family reports questioned [facility] staff who then turned it back down to 3 L. Reported temp of 100.4 F this morning. Patient states Flomax was4 secondary to trouble urinating. He denies any dizziness, lightheadedness or syncope. Reports has had poor appetite. Patient' s family reports wonders if some of poor appetite was secondary to patient being on sodium restrictions patient used to eating salty diet. Denies diaphoresis, N/V/D/C, melena, hematochezia, METZGER, dizziness, syncope, vision changes, CP,orthopnea, PND, palpitations, hemoptysis, sore throat, choking, otalgia, rhinorrhea, abdominal pain, rashes, dysuria, hematuria. In ER temp 38 C, 74% on room air up to 95% on 6L. Pulse 100, respirations 24, BP: 101/51. NA: 132, glucose: 191, WBC: 12, Hgb: 11 (baseline), POC lactic acid 1.6, magnesium: 1.7, Cr: 1.4 (baseline), EKG NSR. CXR: Read as no change in the bilateral airspace opacities and trace bilateral pleural effusions from CXR 01/06. Given Tylenol, Levaquin 750 mg IV, vancomycin IV, Zosyn IV, 250 mL NSS bolus, magnesium 800 mg p.o., calcium gluconate 1000 mg IV, Phospha 250, 2 tabs. ECHO 01/03/18: EF 60/65% MRI CERVICAL SPINE: 1. Moderate multilevel cervical spondylosis. 2. No destructive bony process is seen. 3. The cervical spinal cord is normal in morphology and signal intensity. CT CHEST 01/01/18: 1. Persistent multifocal multilobar distribution of groundglass and consolidative opacities with mildly improved aeration of the lingula. Disease within the left lower and right upper lobes demonstrate increased consolidation from comparison. 2. Trace right pleural effusion appears unchanged with resolution of the previously described trace left pleural effusion. 3. Slightly decreased adenopathy of the mediastinum, likely reactive. 4. Layering increased attenuation of the gallbladder lumen suggest cholelithiasis. 5. Emphysema VENOUS DOPPLER 01/03/18: Age-indeterminate deep venous thrombosis within the right popliteal and peroneal veins. Past Medical/Surgical History Medical Problems: (1) Atrial flutter Permanent Comment: echo 05/19/13 LVEF 40-45% global hypokinesis Status: Chronic (2) Benign hypertension Status: Chronic (3) Chronic kidney disease stage 3 Status: Chronic (4) Diabetes mellitus type 2 Status: Chronic (5) Hyperglycemia due to type 2 diabetes mellitus Status: Resolved (6) Pneumonia Status: Resolved (7) Prolonged Q-T interval on ECG Permanent Comment: EKG dated in 2012 Status: Chronic Family History Diabetes mellitus FH: colon cancer Hypertension Stroke Social History Smoking Status: Former Smoker Smokeless Tobacco Use: No Alcohol Use: none Drug Use: none Marital Status: Housing status: lives with family Occupational Status: retired Immunizations History of Influenza Vaccine: Yes History of Tetanus Vaccine?: Yes History of Pneumococcal: Yes History of Hepatitis B Vaccine: No Allergies Coded Allergies: No Known Allergies (Unverified , 05/19/13) Home Medications Scheduled Cholecalciferol (Vitamin D3), 2,000 UNITS PO DAILY Docusate Sodium (Docusate Sodium), 100 MG PO BID Guaifenesin-Codeine (Guaifenesin/Codeine), 10 ML PO Q6 Insulin Aspart (Novolog), 0-12 UNITS SC ACHS Insulin Glargine (Lantus Solostar), 10 UNITS SC QAM Insulin Glargine (Lantus Solostar), 20 UNITS SC HS Pantoprazole (Protonix), 40 MG PO DAILY Tamsulosin Hcl (Flomax), 0.4 MG PO HS Warfarin Sod (Coumadin), 1 TAB PO DAILY Scheduled PRN Acetaminophen (Tylenol), 500 MG PO Q4 PRN for OTHER Albuterol Sulf (Proventil 0.083% 2.5MG/3ML), 2.5 MG NEB Q4H PRN for Shortness of Breath Bisacodyl (Dulcolax), 10 MG PO UD PRN for Constipation Tramadol (Ultram), 50 MG PO Q4H PRN for Pain Review of Systems See HPI for pertinent positives & negatives. All other systems reviewed and were otherwise negative Physical Exam Vital Signs Date Time Temp Pulse Resp B/P (MAP) Pulse Ox O2 Delivery O2 Flow Rate FiO2 01/31/18 13:23 80 01/31/18 13:16 36.8 01/31/18 13:14 82 24 113/48 98 Nasal Cannula 6.0 01/31/18 12:02 82 21 110/57 96 Nasal Cannula 6.0 01/31/18 11:00 90 22 101/51 Nasal Cannula 6.0 01/31/18 11:00 84 28 119/62 95 Nasal Cannula 6.0 01/31/18 10:30 93 20 109/48 95 Nasal Cannula 6.0 01/31/18 10:25 100 24 117/54 94 Nasal Cannula 6.0 01/31/18 10:21 Nasal Cannula 01/31/18 10:10 74 Room Air 01/31/18 10:10 101 01/31/18 10:10 91 Nasal Cannula 6.0 01/31/18 10:10 38.0 100 24 96/68 74 Room Air 01/31/18 10:10 94 Nasal Cannula 6.0 General Appearance: WD/WN, + pertinent finding (+ repeated non-productive coughing) Head: normocephalic, atraumatic Eyes: normal inspection, sclerae normal ENT: hearing grossly normal, pharynx normal, + pertinent finding (Mucous membranes moist) Neck: supple, no JVD, trachea midline Respiratory/Chest: no accessory muscle use, + decreased breath sounds, + rales (Throughout), + pertinent finding (respirations 24) Cardiovascular: regular rate, rhythm (Rate 98), no murmur Abdomen/GI: normal bowel sounds, non tender, soft Back: no CVA tenderness Extremities/Musculoskelatal: no calf tenderness, normal capillary refill, non- tender, + pedal edema (2+ bilateral) Neurologic/Psych: alert, normal mood/affect, oriented x 3 Skin: normal color, warm/dry Diagnostics Laboratory Results Results Past 24 Hours Test 01/31/18 10:30 01/31/18 10:44 01/31/18 11:35 01/31/18 13:12 Range/Units White Blood Count 12.62 4.8-10.8 K/uL Red Blood Count 3.83 4.7-6.1 M/uL Hemoglobin 11.3 14.0-18.0 g/dL Hematocrit 36.6 42-52 % Mean Corpuscular Volume 95.6 80-100 fL Mean Corpuscular Hemoglobin 29.5 25-34 pg Mean Corpuscular Hemoglobin Concent 30.9 32-36 g/dl Platelet Count 202 130-400 K/uL Mean Platelet Volume 9.2 7.4-10.4 fL Neutrophils (%) (Auto) 63.9 % Lymphocytes (%) (Auto) 22.3 % Monocytes (%) (Auto) 10.9 % Eosinophils (%) (Auto) 1.5 % Basophils (%) (Auto) 0.4 % Neutrophils # (Auto) 8.06 1.4-6.5 K/uL Lymphocytes # (Auto) 2.82 1.2-3.4 K/uL Monocytes # (Auto) 1.37 0.11-0.59 K/uL Eosinophils # (Auto) 0.19 0-0.5 K/uL Basophils # (Auto) 0.05 0-0.2 K/uL RDW Standard Deviation 57.3 36.4-46.3 fL RDW Coefficient of Variation 16.5 11.5-14.5 % Immature Granulocyte % (Auto) 1.0 % Immature Granulocyte # (Auto) 0.13 0.00-0.02 K/uL Prothrombin Time 15.3 9.0-12.0 SECONDS Prothromb Time International Ratio 1.5 0.9-1.1 Activated Partial Thromboplast Time 30.8 21.0-31.0 SECONDS Partial Thromboplastin Ratio 1.2 Sodium Level 132 136-145 mmol/L Potassium Level 4.3 3.5-5.1 mmol/L Chloride Level 96 98-107 mmol/L Carbon Dioxide Level 29 21-32 mmol/L Anion Gap 7.0 3-11 mmol/L Blood Urea Nitrogen 21 7-18 mg/dl Creatinine 1.42 0.60-1.40 mg/dl Estimated GFR () 51.5 Estimated GFR (Non- 44.4 BUN/Creatinine Ratio 14.7 10-20 Random Glucose 191 70-99 mg/dl Calcium Level 7.8 8.5-10.1 mg/dl Phosphorus Level 2.4 2.5-4.9 mg/dl Magnesium Level 1.7 1.8-2.4 mg/dl Total Bilirubin 0.8 0.2-1 mg/dl Aspartate Amino Transf (AST/SGOT) 32 15-37 U/L Alanine Aminotransferase (ALT/SGPT) 21 12-78 U/L Alkaline Phosphatase 94 45-117 U/L Pro-B-Type Natriuretic Peptide 990 0-1800 pg/ml Total Protein 5.8 6.4-8.2 gm/dl Albumin 2.3 3.4-5.0 gm/dl Globulin 3.5 2.5-4.0 gm/dl Albumin/Globulin Ratio 0.7 0.9-2 Bedside Lactic Acid Venous 1.69 0.90-1.70 mmol/L Influenza Type A Antigen Neg for Influ A NEG Influenza Type B Antigen Neg for Influ B NEG Arterial Blood pH 7.42 7.35-7.45 Arterial Blood Partial Pressure CO2 47 35-46 mmHg Arterial Blood Partial Pressure O2 84 80-95 mm/Hg Arterial Blood HCO3 30 19-24 mmol/L Arterial Blood Oxygen Saturation 95.7 90-95 % Arterial Blood Base Excess 4.7 -9-1.8 mEq/L Arterial Blood Gas Delivery 6L Santana Test POS POS Microbiology Results 01/31/18 Blood Culture, Received Pending 01/31/18 Blood Culture, Received Pending Diagnostic Radiology CXR: COMPARISON: Chest 01/06/2018. FINDINGS: No significant change in the right upper lobe and left basilar consolidation. Right basilar interstitial thickening persists. Left upper lobe nodular airspace opacity is also noted. Trace bilateral pleural effusions. The heart is stable in size. No pneumothorax. IMPRESSION: No change in the bilateral airspace opacities and trace bilateral pleural effusions. EKG EKG: rate 97, NSR, non-specific t wave abnormality Impression Assessment and Plan Pt with Hx hospital admission 12/15/17-01/19/18 for acute respiratory failure, influenza A, MSSA pneumonia, OKSANA and D/C to [facility] presented with increased cough and SOB, & fever 100.4F today ACUTE RESPIRATORY FAILURE Possible secondary to HCAP/diastolic heart failure. In ER temp 38 C, 74% on room air up to 95% on 6L. Pulse 100, respirations 24, BP: 101/51. WBC: 12, POC lactic acid 1.6, CXR: Read as no change in the bilateral airspace opacities and trace bilateral pleural effusions from CXR 01/06/18. Negative influenza. Given Tylenol, Levaquin 750 mg IV, vancomycin IV, Zosyn IV, 250 mL NSS bolus. -Sputum culture pending -Blood cultures pending -MRSA swab -ABG pending -lasix 20mg IV -Zosyn and vancomycin -Xopenex/Atrovent nebs -Pulmonology consult -Monitor CBC, PRP HYPOMAGNESIA Ma.7. Patient given magnesium 800 mg po in ER HYPONATREMIA Na: 132, corrected 133 with glucose of 191. Received 250 mL NSS in ER -Monitor PRP DM II H A1c 10.4 on 12/15/17 -Glycemic pharmacist consult -Rock Velez sliding scale per protocol CKD III: Cr: 1.4 (baseline) -Monitor renal functions Hx PROLONGED QTc -Avoid QTc prolonging agents Hx A FLUTTER ON COUMADIN Current sinus rhythm. INR: 1.5 -Continue Coumadin -Monitor PT INR Hx THROMBOCYTOPENIA Platelets within normal limits at this time. Continue to monitor CBC HISTORY CHRONIC DVT RLE -Continue Coumadin -Continue PERRY hose BPH Patient had Flomax last hospital admission. It was restarted 01/24/18 secondary to urinary hesitancy and retention per pt -will continue Flomax currently continue to monitor and monitor BP NECK PAIN History MRI C-spine last admission: Moderate multilevel cervical spondylosis -Continue tramadol as needed pain -Consider Ortho consult DVT Prophylaxis -Coumadin, PERRY hose Disposition admit telemetry DNR/DNI as per discussion with patient Follows with Dr Ward for routine care Pt was seen with Dr Meneses. See addendum Attending addendum: Patient seen and examined care coordinated with Julisa Bush PA-C 87-year-old male with complicated past medical history recently discharged from [facility] on January 19for acute respiratory failure secondary to MSSA pneumonia,/influenza A/AK I Sent from [facility] with complains of increased shortness of breath dyspnea on exertion cough with productive sputum fever and tachycardia Patient will be admitted to telemetry Empiric antibiotic for healthcare associated pneumonia Order for blood culture/urine culture will follow the report Physical exam: Please refer to the physical exam done by Julisa Bush PA-C Please refer to the documentation by Julisa Bush PA-C for further discussion of other chronic issue Kristin Meneses MD Resuscitation Status DNR/DNI VTE Prophylaxis Will order VTE Prophylaxis: Yes Additional Copies To Angelia Ward M.D. (MEDICAL)
--- NOTE | 2018-01-31 15:24 | Pharmacy Progress Note ---
Glycemic Control Intl Consult Date of Service Jan 31, 2018. Scope Glycemic Pharmacist consulted by Vale Bush on 01/31/18 for glycemic control and to write orders per [facility] inpatient glycemic control protocol Objective Accuchecks BSG (last 24hrs): Test 01/31/18 10:30 Random Glucose 191 mg/dl (70-99) Laboratory Data (last 24hrs) Test 01/31/18 10:30 Anion Gap 7.0 mmol/L BUN/Creatinine Ratio 14.7 Blood Urea Nitrogen 21 mg/dl Creatinine 1.42 mg/dl Potassium Level 4.3 mmol/L Sodium Level 132 mmol/L White Blood Count 12.62 K/uL Red Blood Count 3.83 M/uL Hemoglobin 11.3 g/dL Hematocrit 36.6 % Mean Corpuscular Volume 95.6 fL Mean Corpuscular Hemoglobin 29.5 pg Mean Corpuscular Hemoglobin Concent 30.9 g/dl Platelet Count 202 K/uL Mean Platelet Volume 9.2 fL Neutrophils (%) (Auto) 63.9 % Lymphocytes (%) (Auto) 22.3 % Monocytes (%) (Auto) 10.9 % Eosinophils (%) (Auto) 1.5 % Basophils (%) (Auto) 0.4 % Neutrophils # (Auto) 8.06 K/uL Lymphocytes # (Auto) 2.82 K/uL Monocytes # (Auto) 1.37 K/uL Eosinophils # (Auto) 0.19 K/uL Basophils # (Auto) 0.05 K/uL HbA1c 10.4% from 12/15/17. New A1C ordered for 02/01/18. New glycemic medications as an outpt. Recent Pertinent Medications Outpatient Anti-diabetic Regimen: * Lantus 10units QAM + 20units QHS + Novolog SSI * A1c = 10.4 % 12/15/17 Risk Factors for Insulin Resistance: * Infection: Possible pulmonary source Assessment & Plan ASSESSMENT: * Mr. Burgess is a 87yo M p/w possible HAP. Being started on vancomycin and zosyn. Random BSG obtained in the ED: 191. During previous admissions his BSGs were labile and difficult to manage while on steroids. Of note: Mr. Burgess is prone to AM fasting lows. Care plan will take this into consideration. New A1C ordered for 02/01/18 as there as been a change in his outpatient DM medications. Spoke w/ admitting provider, AM lantus dose was given. No steroids ordered at this juncture. PLAN FOR INPATIENT GLYCEMIC CONTROL: * Basal insulin with LANTUS scale tonight: give 15units if BSG less than 200, 20units if greater than or equal to 200. Hopefully will mitigate fasting low * Correctional Insulin with NOVOLOG ACHS * Goal Range: Low 110 mg/dL - High 140 mg/dL * Correction Factor: 20 mg/dL/unit * Nutritional / Prandial insulin per carb ratio of 1 unit per 6 grams CHO consumed * This CF/CR worked with relative success during previous admissions. Will continue. * Please note that the plan above was derived based on current level of insulin resistance and hospital stress. These recommendations are appropriate for inpatient admission only. Plan of care upon discharge will need to be reassessed to avoid potential outpatient hypo/hyperglycemia. Thank you.
[2018-01-31] MEDS ORDERED: IPRATROPIUM BROMIDE NEB SOLN 0.02% 2.5 ML VIAL INH PRN (16:00)
[2018-01-31] MEDS ORDERED: LEVALBUTEROL 0.63MG/3 ML NEB INH PRN (16:00)
[2018-01-31] MEDS: INSULIN ASPART 100 UNITS/ML 3 ML PEN SC SCH ×3 (16:00→20:22)
[2018-01-31] MEDS ORDERED: MAGNESIUM HYDROXIDE SUSP 30 ML UDC PO PRN (16:30)
[2018-01-31] MEDS: PIPERACILL/TAZOBAC IV 3.375 GM in NSS 100ML IV SCH (16:59)
[2018-01-31] MEDS ORDERED: FUROSEMIDE INJ 20 MG in SYRINGE 0 ML IV ONE (17:00)
[2018-01-31] MEDS ORDERED: VANCOMYCIN IV 1,250 MG in SODIUM CHLORIDE 0.9% 250ML 250 ML IV SCH (18:00)
--- NOTE | 2018-01-31 19:13 | Pulmonary Consultation ---
History General Date of Service: Jan 31, 2018. Stated Complaint: Acute Respiratory Failure With Hypoxia Patient has been admitted to [facility] admission 12/15/2017 through 2017 for acute respiratory insufficiency/failure with MSSA pneumonia and influenza A. 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 Patient was discharged on warfarin, lisinopril, amiodarone, Proscar and NovoLog. He went to [facility] and was notably recovering and was doing well with his physical rehabilitation able to walk with this shoulder up to 200 feet. Patient was transferred earlier from [facility] back to [facility] secondary to respiratory insufficiency with associated clear sputum production for the last 3-4 days an increase in supplemental oxygen requirement per reporting. Also the patient was reported to have a temperature of a 100.4 this morning. At the time of our conversation is family was in the room in he noted he has had increasing fatigue minimal mucus production but denied: Fever, chills, productive cough, hemoptysis, noted dyspnea, pleurisy, classic cardiac chest pain, unintentional weight loss, B type symptoms or rigors. Active Problems 1. Benign prostatic hypertrophy with urinary obstruction 2. Diabetes mellitus 3. Elevated prostate specific antigen (PSA) 4. Nocturia 5. Pneumonia: MSSA/influenza A (November 2017) 6. Hypertension 7. Chronic kidney disease 8. Atrial fibrillation Surgical History 1. History of Cataract Surgery 2. History of Hernia Repair 3. Prostate biopsies Family History 1. Denied: Family history of prostate cancer 2. Family history of Diabetes Mellitus Social History Former smoker --1-1.5 packs per day times 15 years// quit 50 years prior alcohol: Little to no use Current Meds 1. Finasteride 5 MG Oral Tablet; TAKE 1 TABLET DAILY DIRECTED 2. Tamsulosin HCl - 0.4 MG Oral Capsule; TAKE 1 CAPSULE Every twelve hours 3. Insulin Purified NPH (Pork) SUSP; 4. Lisinopril TABS; Allergies 1. No Known Drug Allergies HPI The patient is a 87 year old male who presents to [facility] with complaints of Acute Respiratory Failure With Hypoxia. The patient's primary care provider is No Doctor, Assigned. Historian: patient, family, EMS, [facility] Review of Systems Constitutional: reports: weakness ENT: reports: no symptoms Cardiovascular: reports: as stated in HPI Respiratory: reports: as stated in HPI Gastrointestinal: reports: no symptoms Genitourinary - Male: reports: no symptoms Musculoskeletal: reports: as stated in HPI Integumentary: reports: as stated in HPI Neurologic: reports: no symptoms Psychiatric: reports: depression Endocrine: no symptoms Hematologic / Lymphatic: no symptoms Allergic / Immunologic: no symptoms Past Medical History Past Medical History: Please refer to HPI Past Surgical History: Please refer to HPI Family History Diabetes mellitus FH: colon cancer Hypertension Stroke Please refer to HPI Social History Please refer to HPI Hx Tobacco Use In Past Year?: No Smoking Status: Former Smoker Marital status: Housing status: lives with family Occupational Status: retired Immunizations History of Influenza Vaccine: Yes History of Tetanus Vaccine?: Yes History of Pneumococcal: Yes History of Hepatitis B Vaccine: No History of MDRO History of MDRO: No Allergies Coded Allergies: No Known Allergies (Unverified , 05/19/13) Current Medications Reported Home Medications Medications Dose Route/Sig Max Daily Dose Days Date Category Dose Instructions Coumadin (Warfarin Sod) 2 Mg Tab 1 Tab PO DAILY 01/31/18 Reported Guaifenesin/Codeine (Guaifenesin-Codeine) 1 Sally Sally 10 Ml PO Q6 01/31/18 Reported Dulcolax (Bisacodyl) 5 Mg Tab 10 Mg PO UD PRN 01/31/18 Reported Lantus Solostar (Insulin Glargine) 100 Unit/Ml Inj 20 Units SC HS 01/31/18 Reported Lantus Solostar (Insulin Glargine) 100 Unit/Ml Inj 10 Units SC QAM 01/31/18 Reported Flomax (Tamsulosin Hcl) 0.4 Mg Cap 0.4 Mg PO HS 01/31/18 Reported Ultram (Tramadol HCl) 50 Mg Tab 50 Mg PO Q4H PRN 01/31/18 Reported PAIN SCALE 4-10 Proventil 0.083% 2.5MG/3ML (Albuterol Sulf) 2.5 Mg/3 Ml Nebu 2.5 Mg NEB Q4H PRN 01/31/18 Reported Tylenol (Acetaminophen) 500 Mg Tab 500 Mg PO Q4 PRN 01/31/18 Reported Docusate Sodium 100 Mg Cap 100 Mg PO BID 01/31/18 Reported Novolog (Insulin Aspart) 100 Units/Ml Inj 0-12 Units SC ACHS 01/31/18 Reported LESS THAN 70 = HYPOGLYCEMIC [id number] 70-130 = 0 UNITS 131-180 = 2 UNITS 181-240 = 4 UNITS 241-300 = 6 UNITS 301-350 = 8 UNITS 351-400 = 10 UNITS GREATER THAN 400 = 12 UNITS & CALL Protonix (Pantoprazole Sodium) 40 Mg Tab 40 Mg PO DAILY 01/31/18 Reported Vitamin D3 (Cholecalciferol) 2,000 Unit Tab 2,000 Units PO DAILY 12/15/17 Reported Physical Physical Exam Vital Signs: Date Time Temp Pulse Resp B/P (MAP) Pulse Ox O2 Delivery O2 Flow Rate FiO2 01/31/18 16:00 94 Nasal Cannula 5.0 01/31/18 15:29 94 Nasal Cannula 5.0 01/31/18 15:01 78 26 107/47 94 01/31/18 14:30 82 20 116/58 95 Nasal Cannula 6.0 01/31/18 14:01 82 28 140/63 96 Nasal Cannula 6.0 01/31/18 13:23 80 01/31/18 13:16 36.8 01/31/18 13:14 82 24 113/48 98 Nasal Cannula 6.0 01/31/18 12:02 82 21 110/57 96 Nasal Cannula 6.0 01/31/18 11:00 90 22 101/51 Nasal Cannula 6.0 01/31/18 11:00 84 28 119/62 95 Nasal Cannula 6.0 01/31/18 10:30 93 20 109/48 95 Nasal Cannula 6.0 01/31/18 10:25 100 24 117/54 94 Nasal Cannula 6.0 01/31/18 10:21 Nasal Cannula 01/31/18 10:10 74 Room Air 01/31/18 10:10 101 01/31/18 10:10 91 Nasal Cannula 6.0 01/31/18 10:10 38.0 100 24 96/68 74 Room Air 01/31/18 10:10 94 Nasal Cannula 6.0 General Appearance: NO APPARENT DISTRESS, uncomfortable Head: NORMOCEPHALIC, ATRAUMATIC Eyes: PERRLA, NO DISCHARGE, EOMI, SCLERAE NORMAL ENT: NORMAL EAR EXAM, NORMAL NASAL EXAM, NORMAL MOUTH EXAM, NORMAL THROAT EXAM Neck: NORMAL RANGE OF MOTION, NO TENDERNESS, NO STRIDOR Respiratory: rhonchi (Notably in the right upper lobe) Cardiovasular: REGULAR RATE/RHYTHM, NORMAL S1S2, NO M/G/R, NO MURMUR Abdomen: NON TENDER, NORMAL BOWEL SOUNDS, NO REBOUND, NO MASSES, NO GUARDING, NO ORGANOMEGALY Genitourinary - Male: EXTERNAL GENITALIA NORMAL Back: NORMAL INSPECTION, NO MIDLINE TENDERNESS, NO CVA TENDERNESS Upper Extremities: NO EDEMA, NO DEFORMITY, NORMAL ROM Lower Extremities: NO EDEMA, NO DEFORMITY, NORMAL ROM Pulses: carotid (R) (2+), carotid (L) (2+), dorsalis pedis (R) (2+), dorsalis pedis (L) (2+) Neuro: ALERT, ORIENTED x 3, NORMAL MOTOR EXAM, NORMAL SENSATION, NORMAL CEREBELLAR EXAM, NORMAL SPEECH Diagnostics Labs Results Past 24 Hours Test 01/31/18 10:30 01/31/18 10:44 01/31/18 11:35 01/31/18 13:12 Range/Units White Blood Count 12.62 4.8-10.8 K/uL Red Blood Count 3.83 4.7-6.1 M/uL Hemoglobin 11.3 14.0-18.0 g/dL Hematocrit 36.6 42-52 % Mean Corpuscular Volume 95.6 80-100 fL Mean Corpuscular Hemoglobin 29.5 25-34 pg Mean Corpuscular Hemoglobin Concent 30.9 32-36 g/dl Platelet Count 202 130-400 K/uL Mean Platelet Volume 9.2 7.4-10.4 fL Neutrophils (%) (Auto) 63.9 % Lymphocytes (%) (Auto) 22.3 % Monocytes (%) (Auto) 10.9 % Eosinophils (%) (Auto) 1.5 % Basophils (%) (Auto) 0.4 % Neutrophils # (Auto) 8.06 1.4-6.5 K/uL Lymphocytes # (Auto) 2.82 1.2-3.4 K/uL Monocytes # (Auto) 1.37 0.11-0.59 K/uL Eosinophils # (Auto) 0.19 0-0.5 K/uL Basophils # (Auto) 0.05 0-0.2 K/uL RDW Standard Deviation 57.3 36.4-46.3 fL RDW Coefficient of Variation 16.5 11.5-14.5 % Immature Granulocyte % (Auto) 1.0 % Immature Granulocyte # (Auto) 0.13 0.00-0.02 K/uL Prothrombin Time 15.3 9.0-12.0 SECONDS Prothromb Time International Ratio 1.5 0.9-1.1 Activated Partial Thromboplast Time 30.8 21.0-31.0 SECONDS Partial Thromboplastin Ratio 1.2 Sodium Level 132 136-145 mmol/L Potassium Level 4.3 3.5-5.1 mmol/L Chloride Level 96 98-107 mmol/L Carbon Dioxide Level 29 21-32 mmol/L Anion Gap 7.0 3-11 mmol/L Blood Urea Nitrogen 21 7-18 mg/dl Creatinine 1.42 0.60-1.40 mg/dl Estimated GFR () 51.5 Estimated GFR (Non- 44.4 BUN/Creatinine Ratio 14.7 10-20 Random Glucose 191 70-99 mg/dl Calcium Level 7.8 8.5-10.1 mg/dl Phosphorus Level 2.4 2.5-4.9 mg/dl Magnesium Level 1.7 1.8-2.4 mg/dl Total Bilirubin 0.8 0.2-1 mg/dl Aspartate Amino Transf (AST/SGOT) 32 15-37 U/L Alanine Aminotransferase (ALT/SGPT) 21 12-78 U/L Alkaline Phosphatase 94 45-117 U/L Troponin I < 0.015 0-0.045 ng/ml Pro-B-Type Natriuretic Peptide 990 0-1800 pg/ml Total Protein 5.8 6.4-8.2 gm/dl Albumin 2.3 3.4-5.0 gm/dl Globulin 3.5 2.5-4.0 gm/dl Albumin/Globulin Ratio 0.7 0.9-2 Bedside Lactic Acid Venous 1.69 0.90-1.70 mmol/L Influenza Type A Antigen Neg for Influ A NEG Influenza Type B Antigen Neg for Influ B NEG Arterial Blood pH 7.42 7.35-7.45 Arterial Blood Partial Pressure CO2 47 35-46 mmHg Arterial Blood Partial Pressure O2 84 80-95 mm/Hg Arterial Blood HCO3 30 19-24 mmol/L Arterial Blood Oxygen Saturation 95.7 90-95 % Arterial Blood Base Excess 4.7 -9-1.8 mEq/L Arterial Blood Gas Delivery 6L Santana Test POS POS Test 01/31/18 16:25 01/31/18 17:30 Range/Units Bedside Glucose 105 70-99 mg/dl Urine Color YELLOW Urine Appearance CLEAR CLEAR Urine pH 7.0 4.5-7.5 Urine Specific [place] 1.012 1.000-1.030 Urine Protein TRACE NEG Urine Glucose (UA) NEG NEG Urine Ketones NEG NEG Urine Occult Blood NEG NEG Urine Nitrite NEG NEG Urine Bilirubin NEG NEG Urine Urobilinogen NEG NEG Urine Leukocyte Esterase NEG NEG Urine WBC (Auto) 0 0-5 /hpf Urine RBC (Auto) 0-4 0-4 /hpf Urine Hyaline Casts (Auto) 1-5 0-5 /lpf Urine Epithelial Cells (Auto) 0-5 0-5 /lpf Urine Bacteria (Auto) NEG NEG Microbiology Results 01/31/18 Blood Culture, Received Pending 01/31/18 Blood Culture, Received Pending 01/31/18 MRSA DNA Surveillance Screen - Final, Complete Specimen Negative for MRSA by DNA Probe 01/31/18 Gram Stain, Received Pending 01/31/18 Sputum Culture, Received Pending 01/31/18 Urine Culture, Received Pending Diagnostic Radiology CXR notes increasing infiltrative pattern in the right upper lobe and possible new pulmonary nodule in the left apex/left upper lobe EKG Interpretation: NORMAL EKG Impression Assessment and Plan 87-year-old gentleman admitted with increasing fatigue mild shortness of breath and new infiltrative pattern in the right upper lobe via CXR: 1. Pneumonia: It is highly likely this patient has a a hospital associated pneumonia current antibiotic choices are well suited for coverage. I would also like to add dornase as well as vest physiotherapy at this time. Patient is currently on 5-6 liters of supplemental oxygen so bronchoscopy is contraindicated but if he show signs of lobar collapse or progression of underlying shortness of breath/pneumonia bronchoscopy will have to be re- evaluated. 2. Pulmonary nodule: CXR does show new left upper lobe nodule verses infiltrative pattern. Follow-up high-resolution noncontrast CT with the patient is clinically stable is warranted. Thank you for this consultation
[2018-01-31] MEDS: LEVALBUTEROL 1.25MG/0.5ML NEB INH SCH (19:27)
[2018-01-31] MEDS: IPRATROPIUM BROMIDE NEB SOLN 0.02% 2.5 ML VIAL INH SCH (19:27)
[2018-01-31] MEDS: TAMSULOSIN HCL 0.4 MG CAP PO SCH (20:24)
[2018-01-31] MEDS: DORNASE ALFA 2.5 ML AMP INH SCH (20:50)
[2018-01-31] MEDS ORDERED: INSULIN GLARGINE SOLOSTAR 100 UNITS/ML 3 ML PEN SC SCH ×2 (21:00)
[2018-02-01] VITALS (14 sets, daily range): BP systolic 103–134; BP diastolic 58–71; PULSE 76–93; TEMP 36.6–37.1; O2SAT 92–98
[2018-02-01] MEDS ORDERED: INSULIN ASPART 100 UNITS/ML 3 ML PEN SC ONE
[2018-02-01] MEDS: PIPERACILL/TAZOBAC IV 3.375 GM in NSS 100ML IV SCH ×3 (01:19→17:35)
[2018-02-01] MEDS: IPRATROPIUM BROMIDE NEB SOLN 0.02% 2.5 ML VIAL INH SCH ×4 (02:18→19:17)
[2018-02-01] MEDS: LEVALBUTEROL 1.25MG/0.5ML NEB INH SCH ×4 (02:18→19:17)
[2018-02-01 06:28] LABS: BASO % 0.3 %; BASO ABS # 0.03 K/uL (0-0.2); EOS % 0.8 %; EOS ABS # 0.08 K/uL (0-0.5); HEMATOCRIT 32.7 % (42-52); HEMOGLOBIN 10.3 g/dL (14.0-18.0); IG# 0.08 K/uL (0.00-0.02); LYMPH % 17.3 %; LYMPH ABS # 1.72 K/uL (1.2-3.4); MEAN CORPUSCULAR HEMOGLOBIN 29.6 pg (25-34); MEAN CORPUSCULAR HGB CONC 31.5 g/dl (32-36); MEAN PLATELET VOLUME 8.8 fL (7.4-10.4); MONO % 10.3 %; MONO ABS # 1.03 K/uL (0.11-0.59); NEUT % 70.5 %; NEUT ABS # 7.02 K/uL (1.4-6.5); PLATELET COUNT 161 K/uL (130-400); RED CELL DISTRIBUTION WIDTH CV 16.6 % (11.5-14.5); RED CELL DISTRIBUTION WIDTH SD 56.6 fL (36.4-46.3); WHITE BLOOD COUNT 9.96 K/uL (4.8-10.8)
[2018-02-01 06:34] LABS: INR 1.3 (0.9-1.1)
[2018-02-01 06:52] LABS: HEMOGLOBIN A1C 7.4 % (4.5-5.6)
[2018-02-01 07:05] LABS: CALCIUM 7.5 mg/dl (8.5-10.1); CREATININE 1.47 mg/dl (0.60-1.40); POTASSIUM 3.8 mmol/L (3.5-5.1)
[2018-02-01 07:06] LABS: PHOSPHORUS 2.7 mg/dl (2.5-4.9)
[2018-02-01] MEDS: DORNASE ALFA 2.5 ML AMP INH SCH ×2 (07:07→19:17)
--- NOTE | 2018-02-01 08:33 | Pulmonology Progress Note ---
Pulmonary Progress Note Date of Service Feb 01, 2018. Attending Dr. Gerard Subjective Patient notes increasing fatigue and dyspnea at rest this morning. Objective Patient lying in bed notably tachypneic using accessory muscles with conversation. He currently denies: Productive cough, fever, chills, pleurisy or classic cardiac chest pain Vital signs: Stable on 7 L nasal cannula Respiratory: Rhonchi appreciated especially in the right upper lobe Cardiac: S1-S2, tachycardic, systolic murmur best appreciated right upper sternal border Abdomen: Positive bowel sounds soft nontender Extremities: No clubbing cyanosis or edema noted ELEVATOR DISPATCHER: Cranial nerves grossly intact, strength 4-5 bilaterally MRSA nasal screen negative Pulmonary medications: Dornase nebulized Ipratropium/levalbuterol nebulized Zosyn Assessment & Plan 87-year-old gentleman admitted with increasing fatigue mild shortness of breath and new infiltrative pattern in the right upper lobe via CXR: 1. Pneumonia: Vancomycin discontinued as the patient's MRSA swab was negative. Continue on Zosyn at this time which would be appropriate for hospital associated pneumonia. 3. Shortness of breath: Patient appears to have increasing shortness of breath this morning. Will obtain ABG and perform portable chest x-ray. Currently requiring 7 L nasal cannula. Bronchoscopy is contraindicated but if he show signs of lobar collapse or progression of underlying shortness of breath/ pneumonia bronchoscopy will have to be re-evaluated. 2. Pulmonary Nodule: CXR does show new left upper lobe nodule verses infiltrative pattern. Follow-up high-resolution noncontrast CT with the patient is clinically stable is warranted. Data Medications: Current Inpatient Medications Medications (Trade) Dose Ordered Sig/Krystal Route Start Time Stop Time Status Last Admin Dose Admin Miscellaneous Information (Consult) 1 ea UD PRN N/A 01/31/18 13:27 03/02/18 13:26 Acetaminophen (Tylenol Tab) 650 mg Q4H PRN PO 01/31/18 13:15 03/02/18 13:14 Nitroglycerin (Nitrostat Tab) 0.4 mg UD PRN SL 01/31/18 13:15 03/02/18 13:14 Miscellaneous Information (Consult) 1 ea UD PRN N/A 01/31/18 13:30 03/02/18 13:29 Insulin Aspart (novoLOG ASPART) SLIDING SCALE If C... ACHS SC 01/31/18 16:00 03/02/18 15:59 Glucose (Glucose 40% Gel) 15-30 GRAMS 15 GRAMS... UD PRN PO 01/31/18 14:15 03/02/18 14:14 Glucose (Glucose Chew Tab) 4-8 Tablets 4 Tabl... UD PRN PO 01/31/18 14:15 03/02/18 14:14 Dextrose (Dextrose 50% 50ML Syringe) 25-50ML OF 50% DW IV FOR... UD PRN IV 01/31/18 14:15 03/02/18 14:14 Glucagon (Glucagon Inj) 1 mg UD PRN SQ 01/31/18 14:15 03/02/18 14:14 Miscellaneous Information (Consult Glycemic Management Pharmacy) 1 ea UD PRN N/A 01/31/18 14:31 03/02/18 14:30 Pantoprazole Sodium (Protonix Tab) 40 mg DAILY PO 02/01/18 09:00 03/03/18 08:59 Tamsulosin HCl (Flomax Cap) 0.4 mg HS PO 01/31/18 21:00 03/02/18 20:59 Tramadol HCl (Ultram Tab) 50 mg Q4H PRN PO 01/31/18 14:30 03/02/18 14:29 Cholecalciferol (Vitamin D Tab) 2,000 inter.unit DAILY PO 02/01/18 09:00 03/03/18 08:59 Warfarin Sodium (Coumadin Tab) 2 mg DAILY@1600 PO 02/01/18 16:00 03/03/18 15:59 Ipratropium [place] (Atrovent 0.02% 0.5MG/2.5ML Neb) 0.5 mg Q6R INH 01/31/18 21:00 03/02/18 20:59 02/01/18 07:02 0.5 MG Levalbuterol (Xopenex 1.25MG/ 0.5ML Neb) 1.25 mg Q6R INH 01/31/18 21:00 03/02/18 20:59 02/01/18 07:02 1.25 MG Ipratropium [place] (Atrovent 0.02% 0.5MG/2.5ML Neb) 0.5 mg Q4H PRN INH 01/31/18 16:00 03/02/18 15:59 Levalbuterol (Xopenex 0.63 Mg/ 3 Ml Neb) 0.63 mg Q4H PRN INH 01/31/18 16:00 03/02/18 15:59 Vancomycin HCl 1250 mg/Sodium Chloride 275 ml @ 125 mls/hr Q24H IV 01/31/18 18:00 02/07/18 17:59 01/31/18 18:00 125 MLS/HR Piperacillin Sod/ Tazobactam Sod 3.375 gm/Sodium Chloride 115 ml @ 28.75 mls/ hr Q8H IV 01/31/18 17:00 02/07/18 16:59 02/01/18 01:19 28.75 MLS/HR Magnesium Hydroxide (Milk Of [place] Susp) 30 ml Q12H PRN PO 01/31/18 16:30 03/02/18 16:29 Dornase [place] (Pulmozyme Inhalation Soln 2.5ml Amp) 2.5 ml BIDR INH 01/31/18 20:00 03/02/18 19:59 02/01/18 07:07 2.5 ML Insulin Glargine (Lantus Solostar Pen) 16 units HS SC 02/01/18 21:00 03/02/18 20:59 Insulin Glargine (Lantus Solostar Pen) 8 units DAILY@0800 SC 02/01/18 08:30 03/03/18 08:29 Vital Signs: Date Time Temp Pulse Resp B/P (MAP) Pulse Ox O2 Delivery O2 Flow Rate FiO2 02/01/18 07:07 83 20 96 Mask 8.0 02/01/18 06:56 36.6 83 20 131/71 (91) 97 Oxymask 8.0 02/01/18 04:00 Oxymask 8.0 02/01/18 03:36 36.9 89 18 103/58 (73) 94 Oxymask 8.0 02/01/18 02:18 85 22 97 Mask 8.0 02/01/18 00:00 Oxymask 8.0 01/31/18 22:58 37.2 91 18 102/51 (68) 97 Oxymask 8.0 4/9/18 20:50 93 26 93 Mask 7.0 01/31/18 20:00 98 Oxymask 10.0 01/31/18 19:28 91 26 92 Nasal Cannula 6.0 01/31/18 19:14 37.3 83 28 103/59 (74) 95 Mask 01/31/18 16:00 94 Nasal Cannula 5.0 01/31/18 15:29 94 Nasal Cannula 5.0 01/31/18 15:01 78 26 107/47 94 01/31/18 14:30 82 20 116/58 95 Nasal Cannula 6.0 01/31/18 14:01 82 28 140/63 96 Nasal Cannula 6.0 01/31/18 13:23 80 01/31/18 13:16 36.8 01/31/18 13:14 82 24 113/48 98 Nasal Cannula 6.0 01/31/18 12:02 82 21 110/57 96 Nasal Cannula 6.0 01/31/18 11:00 90 22 101/51 Nasal Cannula 6.0 01/31/18 11:00 84 28 119/62 95 Nasal Cannula 6.0 01/31/18 10:30 93 20 109/48 95 Nasal Cannula 6.0 01/31/18 10:25 100 24 117/54 94 Nasal Cannula 6.0 01/31/18 10:21 Nasal Cannula 01/31/18 10:10 74 Room Air 01/31/18 10:10 101 01/31/18 10:10 91 Nasal Cannula 6.0 01/31/18 10:10 38.0 100 24 96/68 74 Room Air 01/31/18 10:10 94 Nasal Cannula 6.0 Laboratory Results: Last 24 Hours Test 01/31/18 10:30 01/31/18 10:44 01/31/18 11:35 01/31/18 13:12 White Blood Count 12.62 K/uL Red Blood Count 3.83 M/uL Hemoglobin 11.3 g/dL Hematocrit 36.6 % Mean Corpuscular Volume 95.6 fL Mean Corpuscular Hemoglobin 29.5 pg Mean Corpuscular Hemoglobin Concent 30.9 g/dl Platelet Count 202 K/uL Mean Platelet Volume 9.2 fL Neutrophils (%) (Auto) 63.9 % Lymphocytes (%) (Auto) 22.3 % Monocytes (%) (Auto) 10.9 % Eosinophils (%) (Auto) 1.5 % Basophils (%) (Auto) 0.4 % Neutrophils # (Auto) 8.06 K/uL Lymphocytes # (Auto) 2.82 K/uL Monocytes # (Auto) 1.37 K/uL Eosinophils # (Auto) 0.19 K/uL Basophils # (Auto) 0.05 K/uL RDW Standard Deviation 57.3 fL RDW Coefficient of Variation 16.5 % Immature Granulocyte % (Auto) 1.0 % Immature Granulocyte # (Auto) 0.13 K/uL Prothrombin Time 15.3 SECONDS Prothromb Time International Ratio 1.5 Activated Partial Thromboplast Time 30.8 SECONDS Partial Thromboplastin Ratio 1.2 Sodium Level 132 mmol/L Potassium Level 4.3 mmol/L Chloride Level 96 mmol/L Carbon Dioxide Level 29 mmol/L Anion Gap 7.0 mmol/L Blood Urea Nitrogen 21 mg/dl Creatinine 1.42 mg/dl Estimated GFR () 51.5 Estimated GFR (Non- 44.4 BUN/Creatinine Ratio 14.7 Random Glucose 191 mg/dl Calcium Level 7.8 mg/dl Phosphorus Level 2.4 mg/dl Magnesium Level 1.7 mg/dl Total Bilirubin 0.8 mg/dl Aspartate Amino Transf (AST/SGOT) 32 U/L Alanine Aminotransferase (ALT/SGPT) 21 U/L Alkaline Phosphatase 94 U/L Troponin I < 0.015 ng/ml Pro-B-Type Natriuretic Peptide 990 pg/ml Total Protein 5.8 gm/dl Albumin 2.3 gm/dl Globulin 3.5 gm/dl Albumin/Globulin Ratio 0.7 Bedside Lactic Acid Venous 1.69 mmol/L Influenza Type A Antigen Neg for Influ A Influenza Type B Antigen Neg for Influ B Arterial Blood pH 7.42 Arterial Blood Partial Pressure CO2 47 mmHg Arterial Blood Partial Pressure O2 84 mm/Hg Arterial Blood HCO3 30 mmol/L Arterial Blood Oxygen Saturation 95.7 % Arterial Blood Base Excess 4.7 mEq/L Arterial Blood Gas Delivery 6L Santana Test POS Test 01/31/18 16:25 01/31/18 17:30 01/31/18 20:17 02/01/18 00:05 Bedside Glucose 105 mg/dl 130 mg/dl 158 mg/dl Urine Color YELLOW Urine Appearance CLEAR Urine pH 7.0 Urine Specific [place] 1.012 Urine Protein TRACE Urine Glucose (UA) NEG Urine Ketones NEG Urine Occult Blood NEG Urine Nitrite NEG Urine Bilirubin NEG Urine Urobilinogen NEG Urine Leukocyte Esterase NEG Urine WBC (Auto) 0 /hpf Urine RBC (Auto) 0-4 /hpf Urine Hyaline Casts (Auto) 1-5 /lpf Urine Epithelial Cells (Auto) 0-5 /lpf Urine Bacteria (Auto) NEG Test 02/01/18 05:58 02/01/18 07:28 02/01/18 08:15 White Blood Count 9.96 K/uL Red Blood Count 3.48 M/uL Hemoglobin 10.3 g/dL Hematocrit 32.7 % Mean Corpuscular Volume 94.0 fL Mean Corpuscular Hemoglobin 29.6 pg Mean Corpuscular Hemoglobin Concent 31.5 g/dl Platelet Count 161 K/uL Mean Platelet Volume 8.8 fL Neutrophils (%) (Auto) 70.5 % Lymphocytes (%) (Auto) 17.3 % Monocytes (%) (Auto) 10.3 % Eosinophils (%) (Auto) 0.8 % Basophils (%) (Auto) 0.3 % Neutrophils # (Auto) 7.02 K/uL Lymphocytes # (Auto) 1.72 K/uL Monocytes # (Auto) 1.03 K/uL Eosinophils # (Auto) 0.08 K/uL Basophils # (Auto) 0.03 K/uL RDW Standard Deviation 56.6 fL RDW Coefficient of Variation 16.6 % Immature Granulocyte % (Auto) 0.8 % Immature Granulocyte # (Auto) 0.08 K/uL Prothrombin Time 14.0 SECONDS Prothromb Time International Ratio 1.3 Sodium Level 135 mmol/L Potassium Level 3.8 mmol/L Chloride Level 97 mmol/L Carbon Dioxide Level 32 mmol/L Anion Gap 6.0 mmol/L Blood Urea Nitrogen 18 mg/dl Creatinine 1.47 mg/dl Est Creatinine Clear Calc Drug Dose 39.6 ml/min Estimated GFR () 49.4 Estimated GFR (Non- 42.6 BUN/Creatinine Ratio 11.9 Random Glucose 121 mg/dl Estimated Average Glucose 166 mg/dl Hemoglobin A1c 7.4 % Calcium Level 7.5 mg/dl Phosphorus Level 2.7 mg/dl Magnesium Level 1.7 mg/dl Bedside Glucose 123 mg/dl Arterial Blood pH 7.43 Arterial Blood Partial Pressure CO2 47 mmHg Arterial Blood Partial Pressure O2 93 mm/Hg Arterial Blood HCO3 30 mmol/L Arterial Blood Oxygen Saturation 96.8 % Arterial Blood Base Excess 5.2 mEq/L Arterial Blood Gas Delivery 7 L Santana Test POS
[2018-02-01] MEDS ORDERED: MAGNESIUM SULFATE 1GM / D5W 1 GM in PREMIXED IN D5W 100 ML IV ONE (09:00)
[2018-02-01] MEDS ORDERED: INSULIN GLARGINE SOLOSTAR 100 UNITS/ML 3 ML PEN SC SCH ×2 (09:00→21:00)
[2018-02-01] MEDS: CHOLECALCIFEROL 1000 INTER.UNIT TAB PO SCH (09:13)
[2018-02-01] MEDS: PANTOprazole SOD 40 MG TAB PO SCH (09:13)
[2018-02-01] MEDS: INSULIN ASPART 100 UNITS/ML 3 ML PEN SC SCH ×4 (09:23→20:29)
[2018-02-01] MEDS: INSULIN GLARGINE SOLOSTAR 100 UNITS/ML 3 ML PEN SC SCH (09:25)
--- NOTE | 2018-02-01 10:29 | DIAGNOSTIC IMAGING REPORT ---
CHEST ONE VIEW PORTABLE CLINICAL HISTORY: 87 years-old Male presenting with SOB. TECHNIQUE: Portable upright AP view of the chest was obtained. COMPARISON: 01/31/2018 and 01/06/2018. FINDINGS: Atherosclerosis of the aortic arch. Cardiac silhouette normal in size. Persistent extensive dense right upper lung opacity. Less extensive persistent hazy and reticular opacities at the lung bases greater on the left. Obscuration of the left heart border likely also implies lingular opacity. Small right pleural effusion suggested. No large pneumothorax. Degenerative changes of the thoracic spine. IMPRESSION: 1. Overall stable extensive multifocal opacities consistent with multifocal pneumonia. 2. Small right pleural effusion. Electronically signed by: Vin Christensen M.D. 02/01/2018 10:27 AM Dictated Date/Time: 02/01/2018 10:23 AM
--- NOTE | 2018-02-01 10:55 | Progress Note ---
Medicine Progress Note Date & Time of Visit: Feb 01, 2018 at 10:13. Subjective Pt was seen and examined Lying in bed with mild respiratory distress Pt said that he feels weak He said that he coughed a lot last night Continue to feel SOB Denies any chest pain, palpitation Objective Last 8 Hrs Date Time Temp Pulse Resp B/P (MAP) Pulse Ox O2 Delivery O2 Flow Rate FiO2 02/01/18 07:07 83 20 96 Mask 8.0 02/01/18 06:56 36.6 83 20 131/71 (91) 97 Oxymask 8.0 02/01/18 04:00 Oxymask 8.0 02/01/18 03:36 36.9 89 18 103/58 (73) 94 Oxymask 8.0 02/01/18 02:18 85 22 97 Mask 8.0 Physical Exam: General- No acute distress Head- atraumatic Eyes- PERRL, EOMI ENT- oropharynx clear Neck- supple, no JVD Lungs- Decrease BS Heart- regular rhythm Abdomen- normal bowel sounds, soft Extremities- no calf tenderness Neuro- alert, oriented, PERRL, EOMI Skin- warm & dry Laboratory Results: Last 24 Hours Test 01/31/18 10:30 01/31/18 10:44 01/31/18 11:35 01/31/18 13:12 White Blood Count 12.62 K/uL Red Blood Count 3.83 M/uL Hemoglobin 11.3 g/dL Hematocrit 36.6 % Mean Corpuscular Volume 95.6 fL Mean Corpuscular Hemoglobin 29.5 pg Mean Corpuscular Hemoglobin Concent 30.9 g/dl Platelet Count 202 K/uL Mean Platelet Volume 9.2 fL Neutrophils (%) (Auto) 63.9 % Lymphocytes (%) (Auto) 22.3 % Monocytes (%) (Auto) 10.9 % Eosinophils (%) (Auto) 1.5 % Basophils (%) (Auto) 0.4 % Neutrophils # (Auto) 8.06 K/uL Lymphocytes # (Auto) 2.82 K/uL Monocytes # (Auto) 1.37 K/uL Eosinophils # (Auto) 0.19 K/uL Basophils # (Auto) 0.05 K/uL RDW Standard Deviation 57.3 fL RDW Coefficient of Variation 16.5 % Immature Granulocyte % (Auto) 1.0 % Immature Granulocyte # (Auto) 0.13 K/uL Prothrombin Time 15.3 SECONDS Prothromb Time International Ratio 1.5 Activated Partial Thromboplast Time 30.8 SECONDS Partial Thromboplastin Ratio 1.2 Sodium Level 132 mmol/L Potassium Level 4.3 mmol/L Chloride Level 96 mmol/L Carbon Dioxide Level 29 mmol/L Anion Gap 7.0 mmol/L Blood Urea Nitrogen 21 mg/dl Creatinine 1.42 mg/dl Estimated GFR () 51.5 Estimated GFR (Non- 44.4 BUN/Creatinine Ratio 14.7 Random Glucose 191 mg/dl Calcium Level 7.8 mg/dl Phosphorus Level 2.4 mg/dl Magnesium Level 1.7 mg/dl Total Bilirubin 0.8 mg/dl Aspartate Amino Transf (AST/SGOT) 32 U/L Alanine Aminotransferase (ALT/SGPT) 21 U/L Alkaline Phosphatase 94 U/L Troponin I < 0.015 ng/ml Pro-B-Type Natriuretic Peptide 990 pg/ml Total Protein 5.8 gm/dl Albumin 2.3 gm/dl Globulin 3.5 gm/dl Albumin/Globulin Ratio 0.7 Bedside Lactic Acid Venous 1.69 mmol/L Influenza Type A Antigen Neg for Influ A Influenza Type B Antigen Neg for Influ B Arterial Blood pH 7.42 Arterial Blood Partial Pressure CO2 47 mmHg Arterial Blood Partial Pressure O2 84 mm/Hg Arterial Blood HCO3 30 mmol/L Arterial Blood Oxygen Saturation 95.7 % Arterial Blood Base Excess 4.7 mEq/L Arterial Blood Gas Delivery 6L Santana Test POS Test 01/31/18 16:25 01/31/18 17:30 01/31/18 20:17 02/01/18 00:05 Bedside Glucose 105 mg/dl 130 mg/dl 158 mg/dl Urine Color YELLOW Urine Appearance CLEAR Urine pH 7.0 Urine Specific Cowgill 1.012 Urine Protein TRACE Urine Glucose (UA) NEG Urine Ketones NEG Urine Occult Blood NEG Urine Nitrite NEG Urine Bilirubin NEG Urine Urobilinogen NEG Urine Leukocyte Esterase NEG Urine WBC (Auto) 0 /hpf Urine RBC (Auto) 0-4 /hpf Urine Hyaline Casts (Auto) 1-5 /lpf Urine Epithelial Cells (Auto) 0-5 /lpf Urine Bacteria (Auto) NEG Test 02/01/18 05:58 02/01/18 07:28 02/01/18 08:15 White Blood Count 9.96 K/uL Red Blood Count 3.48 M/uL Hemoglobin 10.3 g/dL Hematocrit 32.7 % Mean Corpuscular Volume 94.0 fL Mean Corpuscular Hemoglobin 29.6 pg Mean Corpuscular Hemoglobin Concent 31.5 g/dl Platelet Count 161 K/uL Mean Platelet Volume 8.8 fL Neutrophils (%) (Auto) 70.5 % Lymphocytes (%) (Auto) 17.3 % Monocytes (%) (Auto) 10.3 % Eosinophils (%) (Auto) 0.8 % Basophils (%) (Auto) 0.3 % Neutrophils # (Auto) 7.02 K/uL Lymphocytes # (Auto) 1.72 K/uL Monocytes # (Auto) 1.03 K/uL Eosinophils # (Auto) 0.08 K/uL Basophils # (Auto) 0.03 K/uL RDW Standard Deviation 56.6 fL RDW Coefficient of Variation 16.6 % Immature Granulocyte % (Auto) 0.8 % Immature Granulocyte # (Auto) 0.08 K/uL Prothrombin Time 14.0 SECONDS Prothromb Time International Ratio 1.3 Sodium Level 135 mmol/L Potassium Level 3.8 mmol/L Chloride Level 97 mmol/L Carbon Dioxide Level 32 mmol/L Anion Gap 6.0 mmol/L Blood Urea Nitrogen 18 mg/dl Creatinine 1.47 mg/dl Est Creatinine Clear Calc Drug Dose 39.6 ml/min Estimated GFR () 49.4 Estimated GFR (Non- 42.6 BUN/Creatinine Ratio 11.9 Random Glucose 121 mg/dl Estimated Average Glucose 166 mg/dl Hemoglobin A1c 7.4 % Calcium Level 7.5 mg/dl Phosphorus Level 2.7 mg/dl Magnesium Level 1.7 mg/dl Bedside Glucose 123 mg/dl Arterial Blood pH 7.43 Arterial Blood Partial Pressure CO2 47 mmHg Arterial Blood Partial Pressure O2 93 mm/Hg Arterial Blood HCO3 30 mmol/L Arterial Blood Oxygen Saturation 96.8 % Arterial Blood Base Excess 5.2 mEq/L Arterial Blood Gas Delivery 7 L Santana Test POS Date/Time Source Procedure Growth Status 01/31/18 10:55 Blood Blood Culture Pending Received 01/31/18 10:30 Blood Blood Culture Pending Received 01/31/18 16:30 Nasal MRSA DNA Surveillance Screen - Final Specimen Negative for MRSA by DNA Probe Complete 01/31/18 14:00 Sputum Expectorated Sputum Gram Stain - Final Resulted 01/31/18 14:00 Sputum Expectorated Sputum Sputum Culture Pending Resulted 01/31/18 17:30 Urine , Clean Catch Urine Culture Pending Received Assessment & Plan Pt with Hx hospital admission 12/15/17-01/19/18 for acute respiratory failure, influenza A, MSSA pneumonia, OKSANA and D/C to [facility] presented with increased cough and SOB, & fever 100.4F today ACUTE RESPIRATORY FAILURE Possible secondary to hospital associated pneumonia Hypoxia on admission with oxygen sat in the 75% CXR showed right basilar interstitial thickening persists. Left upper lobe nodular airspace opacity is also noted Sputum and blood cx pending MRSA swab negative Pro BNP WNL Received Vanco and Zosyn IV Vanco D/C and continue IV Zosyn Pulmonology on board Bronchoscopy is contraindicated, but if his breathing worsening, will consider it. Continue respiratory treatment Consider CT chest when pt stable Continue oxygen supplement HYPOMAGNESIA Ma.7' Mg replaced Monitor Mg level HYPONATREMIA Na improved to 135 Stable DM II H A1c 7.4 on 02/01 NovoLog sliding scale per protocol Pharmacy on board for glycemic management CKD III Cr: 1.4 (baseline) Stable Continue monitor BMP Hx PROLONGED QTc Avoid QTc prolonging agents Hx A FLUTTER ON COUMADIN Rate control on Normal sinus rhythm. 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 Current Inpatient Medications: Current Inpatient Medications Medications (Trade) Dose Ordered Sig/Krystal Route Start Time Stop Time Status Last Admin Dose Admin Acetaminophen (Tylenol Tab) 650 mg Q4H PRN PO 01/31/18 13:15 03/02/18 13:14 Nitroglycerin (Nitrostat Tab) 0.4 mg UD PRN SL 01/31/18 13:15 03/02/18 13:14 Miscellaneous Information (Consult) 1 ea UD PRN N/A 01/31/18 13:30 03/02/18 13:29 Insulin Aspart (novoLOG ASPART) SLIDING SCALE If C... ACHS SC 01/31/18 16:00 03/02/18 15:59 02/01/18 09:23 6 UNITS Glucose (Glucose 40% Gel) 15-30 GRAMS 15 GRAMS... UD PRN PO 01/31/18 14:15 03/02/18 14:14 Glucose (Glucose Chew Tab) 4-8 Tablets 4 Tabl... UD PRN PO 01/31/18 14:15 03/02/18 14:14 Dextrose (Dextrose 50% 50ML Syringe) 25-50ML OF 50% DW IV FOR... UD PRN IV 01/31/18 14:15 03/02/18 14:14 Glucagon (Glucagon Inj) 1 mg UD PRN SQ 01/31/18 14:15 03/02/18 14:14 Miscellaneous Information (Consult Glycemic Management Pharmacy) 1 ea UD PRN N/A 01/31/18 14:31 03/02/18 14:30 Pantoprazole Sodium (Protonix Tab) 40 mg DAILY PO 02/01/18 09:00 03/03/18 08:59 02/01/18 09:13 40 MG Tamsulosin HCl (Flomax Cap) 0.4 mg HS PO 01/31/18 21:00 03/02/18 20:59 Tramadol HCl (Ultram Tab) 50 mg Q4H PRN PO 01/31/18 14:30 03/02/18 14:29 Cholecalciferol (Vitamin D Tab) 2,000 inter.unit DAILY PO 02/01/18 09:00 03/03/18 08:59 02/01/18 09:13 2,000 INTER.UNIT Warfarin Sodium (Coumadin Tab) 2 mg DAILY@1600 PO 02/01/18 16:00 03/03/18 15:59 Ipratropium Verdi (Atrovent 0.02% 0.5MG/2.5ML Neb) 0.5 mg Q6R INH 01/31/18 21:00 03/02/18 20:59 02/01/18 07:02 0.5 MG Levalbuterol (Xopenex 1.25MG/ 0.5ML Neb) 1.25 mg Q6R INH 01/31/18 21:00 03/02/18 20:59 02/01/18 07:02 1.25 MG Ipratropium Verdi (Atrovent 0.02% 0.5MG/2.5ML Neb) 0.5 mg Q4H PRN INH 01/31/18 16:00 03/02/18 15:59 Levalbuterol (Xopenex 0.63 Mg/ 3 Ml Neb) 0.63 mg Q4H PRN INH 01/31/18 16:00 03/02/18 15:59 Piperacillin Sod/ Tazobactam Sod 3.375 gm/Sodium Chloride 115 ml @ 28.75 mls/ hr Q8H IV 01/31/18 17:00 02/07/18 16:59 02/01/18 09:12 28.75 MLS/HR Magnesium Hydroxide (Milk Of Magnchayo Susp) 30 ml Q12H PRN PO 01/31/18 16:30 03/02/18 16:29 Dornase Rafael (Pulmozyme Inhalation Soln 2.5ml Amp) 2.5 ml BIDR INH 01/31/18 20:00 03/02/18 19:59 02/01/18 07:07 2.5 ML Insulin Glargine (Lantus Solostar Pen) 16 units HS SC 02/01/18 21:00 03/02/18 20:59 Insulin Glargine (Lantus Solostar Pen) 8 units DAILY@0800 SC 02/01/18 08:30 03/03/18 08:29 02/01/18 09:25 8 UNITS
--- NOTE | 2018-02-01 11:00 | DIAGNOSTIC IMAGING REPORT ---
VENOUS DOPPLER LWR EXT BILA CLINICAL HISTORY: 87 years-old Male presenting with Rule out DVT. TECHNIQUE: Real-time grayscale and color and spectral Doppler ultrasound imaging of the veins of the bilateral lower extremities was performed. Compression and augmentation were also utilized. COMPARISON: 01/03/2018. FINDINGS: Right: Common femoral vein: Patent. Greater saphenous vein: Patent. Deep femoral vein: Patent. Femoral vein: Patent. Popliteal vein: Previously noted thrombus in the right popliteal vein is not evident on the current exam. Calf veins: Nonocclusive filling defect consistent with thrombus in the posterior tibial and peroneal veins. Left: Common femoral vein: Patent. Greater saphenous vein: Patent. Deep femoral vein: Patent. Femoral vein: Patent. Popliteal vein: Patent. Calf veins: Patent. Other: None. IMPRESSION: 1. No evidence of deep venous thrombosis in the left lower extremity. 2. Previously noted right popliteal thrombus is not evident, possibly resorbed/resolved. 3. Nonocclusive thrombus in the right posterior tibial and peroneal veins. The thrombus in the right posterior tibial vein may be new/acute. The report will be called/faxed according to standard departmental protocol. Electronically signed by: Vin Christensen M.D. 02/01/2018 10:59 AM Dictated Date/Time: 02/01/2018 10:56 AM
--- NOTE | 2018-02-01 11:23 | Pharmacy Progress Note ---
Glycemic Control Progress Note Date of Service Feb 01, 2018. Scope Glycemic Pharmacist consulted for glycemic control to write orders per [facility] inpatient glycemic control protocol. Objective Accuchecks BSG (last 24hrs): Test 01/31/18 16:25 01/31/18 20:17 02/01/18 00:05 02/01/18 05:58 Bedside Glucose 105 mg/dl (70-99) 130 mg/dl (70-99) 158 mg/dl (70-99) Random Glucose 121 mg/dl (70-99) Test 02/01/18 07:28 Bedside Glucose 123 mg/dl (70-99) HbA1c: Test 02/01/18 05:58 Hemoglobin A1c 7.4 % (4.5-5.6) H Recent Pertinent Medications Outpatient Anti-diabetic Regimen: * Lantus 10units QAM + 20units QHS + Novolog SSI * A1c = 10.4 % 12/15/17 * A1c = 7.4 % 02/01/18 Risk Factors for Insulin Resistance: * Infection: Possible pulmonary source Assessment & Plan ASSESSMENT: * Mr. Burgess is a 87yo M p/w possible HAP. Being started on vancomycin and zosyn. Random BSG obtained in the ED: 191. During previous admissions his BSGs were labile and difficult to manage while on steroids. Of note: Mr. Burgess is prone to AM fasting lows. Care plan will take this into consideration. New A1C ordered for 02/01/18 as there as been a change in his outpatient DM medications. Spoke w/ admitting provider, AM lantus dose was given. No steroids ordered at this juncture. 02/01/18: PLAN FOR INPATIENT GLYCEMIC CONTROL: * Basal Lantus of 15units evening of 01/31/18 yielded therapeutic fasting AM BSGs. To avoid lows throughout the day: adjusted AM lantus dose from 10--> 8units. In order to cover his basal needs appropriately, increased HS lantus from 15-->16units. No other changes at this juncture. * Most recent A1C indicative of good glycemic control pursuant to ADA EDCS. Likely be able to continue Mr. Burgess' home regimen at d/c 01/31/18 PLAN FOR INPATIENT GLYCEMIC CONTROL: * Basal insulin with LANTUS scale tonight: give 15units if BSG less than 200, 20units if greater than or equal to 200. Hopefully will mitigate fasting low * Correctional Insulin with NOVOLOG ACHS * Goal Range: Low 110 mg/dL - High 140 mg/dL * Correction Factor: 20 mg/dL/unit * Nutritional / Prandial insulin per carb ratio of 1 unit per 6 grams CHO consumed * This CF/CR worked with relative success during previous admissions. Will continue. * Please note that the plan above was derived based on current level of insulin resistance and hospital stress. These recommendations are appropriate for inpatient admission only. Plan of care upon discharge will need to be reassessed to avoid potential outpatient hypo/hyperglycemia. Thank you.
[2018-02-01] MEDS ORDERED: NURSING VERBAL MED ORDER ONE (14:30)
[2018-02-01] MEDS ORDERED: WARFARIN SOD 2 MG TAB PO SCH (16:00)
[2018-02-01] MEDS ORDERED: WARFARIN SOD 0.5 MG TAB PO ONE (16:15)
[2018-02-01] MEDS: BOOST VANILLA PO SCH (17:00)
[2018-02-01] MEDS: TAMSULOSIN HCL 0.4 MG CAP PO SCH (21:00)
[2018-02-01] MEDS: GUAIFENESIN SUGAR FREE 100 MG/5 ML UDC PO PRN (23:07)
[2018-02-02] VITALS (13 sets, daily range): BP systolic 96–122; BP diastolic 50–65; PULSE 71–94; TEMP 36.7–37.3; O2SAT 90–97; BMI 23.4
[2018-02-02] MEDS: PIPERACILL/TAZOBAC IV 3.375 GM in NSS 100ML IV SCH ×3 (01:04→17:43)
[2018-02-02] MEDS: IPRATROPIUM BROMIDE NEB SOLN 0.02% 2.5 ML VIAL INH SCH ×4 (02:37→19:24)
[2018-02-02] MEDS: LEVALBUTEROL 1.25MG/0.5ML NEB INH SCH ×4 (02:37→19:24)
[2018-02-02] MEDS: GUAIFENESIN SUGAR FREE 100 MG/5 ML UDC PO PRN ×2 (06:32→21:03)
[2018-02-02] MEDS: DORNASE ALFA 2.5 ML AMP INH SCH ×2 (07:02→19:24)
[2018-02-02] MEDS: BOOST VANILLA PO SCH ×2 (08:00→12:00)
[2018-02-02] MEDS: CHOLECALCIFEROL 1000 INTER.UNIT TAB PO SCH (09:26)
[2018-02-02] MEDS: PANTOprazole SOD 40 MG TAB PO SCH (09:26)
[2018-02-02] MEDS: INSULIN ASPART 100 UNITS/ML 3 ML PEN SC SCH ×4 (09:34→20:58)
[2018-02-02] MEDS: INSULIN GLARGINE SOLOSTAR 100 UNITS/ML 3 ML PEN SC SCH (09:35)
[2018-02-02 09:54] LABS: INR 1.2 (0.9-1.1)
[2018-02-02 10:14] LABS: CALCIUM 7.6 mg/dl (8.5-10.1); CREATININE 1.25 mg/dl (0.60-1.40); POTASSIUM 4.1 mmol/L (3.5-5.1)
--- NOTE | 2018-02-02 10:17 | Pharmacy Progress Note ---
Pharmacy Glycemic Short Note 2 Date of Service Feb 02, 2018. OUTPATIENT ANTIDIABETIC REGIMEN: * Lantus 10 units SQ AM + 20 units SQ HS * Novolog per scale Item Value Date Time Bedside Glucose 105 mg/dl H 01/31/18 1625 Bedside Glucose 130 mg/dl H 01/31/182016 Bedside Glucose 158 mg/dl H 02/01/18 0005 Bedside Glucose 123 mg/dl H 02/01/18 0728 Bedside Glucose 202 mg/dl H 02/01/18 1129 Bedside Glucose 152 mg/dl H 02/01/18 1629 Bedside Glucose 112 mg/dl H 02/01/18 1950 Bedside Glucose 100 mg/dl H 02/02/18 0653 ASSESSMENT: * Pt has been receiving 45 units of insulin per day with adequate control * 24 units of basal insulin with Lantus * 21 units of prandial insulin with NovoLog * Per previous admission, pt prone to AM hypoglycemia. AM fasting trending downwards today (123 yesterday and today 100). Will slightly decrease PM dose of Lantus to prevent hypo tomorrow. * Post-prandial BSGs in goal range. No changes needed to CF/CR. PLAN FOR INPATIENT GLYCEMIC CONTROL: * Basal insulin * Lantus 8 units SQ daily in AM, decrease PM dose to 14 units SQ at HS * Bolus insulin * NovoLog per scale ACHS or Q6hrs while NPO * Goal Range: Low 110 mg/dL - High 140 mg/dL * Correction Factor: 20 mg/dL/unit * Nutritional / Prandial insulin per carb ratio of 1 unit per 6 grams CHO consumed PLAN FOR DISCHARGE: * Significant improvement in A1c with the addition of basal insulin after last admission * A1c 10.4% in Nov 2017 --> now down to 7.4% in January 2018. * Appropriate to continue current outpatient regimen as long as patient is not experiencing hypoglycemia * Pt typically requires less insulin during admission than ordered outpatient dosing, but, this may be due to controlled CHO diet in house.
--- NOTE | 2018-02-02 12:09 | PROGRESS NOTE ---
DATE: 02/02/2018 PROBLEM LIST: Includes: 1. Pneumonia. 2. Dyspnea. 3. Pulmonary nodule. SUBJECTIVE: The patient states that he feels that his breathing feels a little bit better today. He states that he does not feel quite as short of breath. He still is run down and tired. He still is wanting to sleep quite a bit. He does have a cough, but it is not productive. There is mucous there that he feels he can cough up, but it is just not moving. He is not having any chest pain, no chest pressure, or heaviness. He has not had any fever or chills that he is aware of. No GI difficulties. No difficulty with pain or swelling in his legs that he is aware of. OBJECTIVE: GENERAL: The patient is an 87-year-old male lying in bed. He was sleeping when I entered, but did arouse easily, was interactive and cooperative, is alert and oriented to person; place; and time. No significant accessory muscle use. VITAL SIGNS: Temperature is 36.8, pulse 84, respiration 18, blood pressure is 122/64, pulse ox 97% on OxyMask 7.5 liters. HEENT: Normocephalic, atraumatic. Pupils equal, round, and reactive to light and accommodation. Extraocular movements are intact. NECK: Supple. There is no mass, no adenopathy, and no bruits. CHEST: The patient has decreased breath sounds bilaterally. Does have some coarse almost rhonchorous breath sounds as well. CARDIOVASCULAR: Regular rate and rhythm. Does have a 2/6 systolic murmur, no gallops or rubs noted. ABDOMEN: Bowel sounds present. Abdomen soft, flat, nontender. No guarding, rigidity, or organomegaly. EXTREMITIES: No erythema or edema. NEUROLOGIC: Cranial nerves II through XII grossly intact. No focal deficit noted. LABORATORY DATA: INR 1.2. Renal is unremarkable. IMAGING: No new imaging data. IMPRESSION: This is an 87-year-old male who has had difficulty with multiple bouts of pneumonia recently. The patient came in today and does appear to have pneumonia again. At this time, he is on appropriate antibiotic. He is reporting that he is feeling a little bit better. He still is on relatively high oxygen demand at 7.5 L by OxyMask, but he is saturating well. At this point, he is to continue his meds as they are. He is to continue his oxygen. We will reevaluate tomorrow. We would like for the patient to have a flutter valve in addition to the vibration vest. Plan has been reviewed and agreed upon. LEATHA
[2018-02-02] MEDS: HEPARIN SOD 5000 UNIT/0.5 ML CARP SQ SCH ×2 (13:38→20:59)
[2018-02-02] MEDS: WARFARIN SOD 3 MG TAB PO SCH (16:49)
[2018-02-02] MEDS ORDERED: BOOST GLUCOSE CONTROL PO SCH (17:00)
--- NOTE | 2018-02-02 19:17 | Progress Note ---
Medicine Progress Note Date & Time of Visit: Feb 02, 2018 at 10:07. Subjective Pt was seen and examined Lying in bed with no distress he said that his breathing slightly improves he said that he continue to cough Continue to require 7L oxygen Denies any chest pain, palpitation, dizziness and fever Objective Last 8 Hrs Date Time Temp Pulse Resp B/P (MAP) Pulse Ox O2 Delivery O2 Flow Rate FiO2 02/02/18 16:00 95 Oxymask 5.5 02/02/18 15:51 36.9 86 20 109/63 (78) 93 Nasal Cannula 5.0 02/02/18 14:12 82 18 96 Mask 6.0 02/02/18 11:38 36.7 82 16 119/64 (82) 96 Oxymask 6.0 Physical Exam: General- No acute distress Head- atraumatic Eyes- PERRL, EOMI ENT- oropharynx clear Neck- supple, no JVD Lungs- Decrease BS Heart- regular rhythm Abdomen- normal bowel sounds, soft Extremities- no calf tenderness Neuro- alert, oriented, PERRL, EOMI Skin- warm & dry Laboratory Results: Last 24 Hours Test 02/01/18 19:50 02/02/18 06:53 02/02/18 09:30 02/02/18 11:34 Bedside Glucose 112 mg/dl 100 mg/dl 128 mg/dl Prothrombin Time 12.2 SECONDS Prothromb Time International Ratio 1.2 Sodium Level 134 mmol/L Potassium Level 4.1 mmol/L Chloride Level 99 mmol/L Carbon Dioxide Level 32 mmol/L Anion Gap 3.0 mmol/L Blood Urea Nitrogen 17 mg/dl Creatinine 1.25 mg/dl Est Creatinine Clear Calc Drug Dose 46.6 ml/min Estimated GFR () 60.0 Estimated GFR (Non- 51.8 BUN/Creatinine Ratio 13.3 Random Glucose 155 mg/dl Calcium Level 7.6 mg/dl Test 02/02/18 16:58 Bedside Glucose 112 mg/dl Assessment & Plan Pt with Hx hospital admission 12/15/17-01/19/18 for acute respiratory failure, influenza A, MSSA pneumonia, OKSANA and D/C to [facility] presented with increased cough and SOB, & fever 100.4F today ACUTE RESPIRATORY FAILURE Possible secondary to hospital associated pneumonia Hypoxia on admission with oxygen sat in the 75% CXR showed right basilar interstitial thickening persists. Left upper lobe nodular airspace opacity is also noted Sputum and blood cx pending MRSA swab negative Pro BNP WNL Received Vanco and Zosyn IV Vanco D/C and continue IV Zosyn Pulmonology on board Bronchoscopy is contraindicated, but if his breathing worsening, will consider it. Continue respiratory treatment Consider CT chest when pt stable Continue oxygen supplement 02/02 Continue to require 7L oxygen Continue IV Zosyn Pulmonary on board continue neb treatment On flutter valve and vibration vest. HYPOMAGNESIA Monitor Mg level HYPONATREMIA Na improved to 135 Stable DM II H A1c 7.4 on 02/01 NovoLog sliding scale per protocol Pharmacy on board for glycemic management CKD III Cr: 1.4 (baseline) Creatine 1.2 today Continue monitor BMP Stable Hx PROLONGED QTc Avoid QTc prolonging agents Hx A FLUTTER ON COUMADIN Rate control on Normal sinus rhythm. 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 Nonocclusive thrombus in the right posterior tibial and peroneal veins. The thrombus in the right posterior tibial vein may be new/acute. Continue PERRY hose BPH Continue Flomax NECK PAIN MRI C-spine showed moderate multilevel cervical spondylosis Continue tramadol as needed pain Stable DVT Prophylaxis On heparin sub until INR therapeutic On Coumadin (INR 1.2 today) Disposition Plan to discharge to [facility] once medically stable. Current Inpatient Medications: Current Inpatient Medications Medications (Trade) Dose Ordered Sig/Krystal Route Start Time Stop Time Status Last Admin Dose Admin Acetaminophen (Tylenol Tab) 650 mg Q4H PRN PO 01/31/18 13:15 03/02/18 13:14 Nitroglycerin (Nitrostat Tab) 0.4 mg UD PRN SL 01/31/18 13:15 03/02/18 13:14 Miscellaneous Information (Consult) 1 ea UD PRN N/A 01/31/18 13:30 03/02/18 13:29 Insulin Aspart (novoLOG ASPART) SLIDING SCALE If C... ACHS SC 01/31/18 16:00 03/02/18 15:59 02/02/18 17:53 2 UNITS Glucose (Glucose 40% Gel) 15-30 GRAMS 15 GRAMS... UD PRN PO 01/31/18 14:15 03/02/18 14:14 Glucose (Glucose Chew Tab) 4-8 Tablets 4 Tabl... UD PRN PO 01/31/18 14:15 03/02/18 14:14 Dextrose (Dextrose 50% 50ML Syringe) 25-50ML OF 50% DW IV FOR... UD PRN IV 01/31/18 14:15 03/02/18 14:14 Glucagon (Glucagon Inj) 1 mg UD PRN SQ 01/31/18 14:15 03/02/18 14:14 Miscellaneous Information (Consult Glycemic Management Pharmacy) 1 ea UD PRN N/A 01/31/18 14:31 03/02/18 14:30 Pantoprazole Sodium (Protonix Tab) 40 mg DAILY PO 02/01/18 09:00 03/03/18 08:59 02/02/18 09:26 40 MG Tamsulosin HCl (Flomax Cap) 0.4 mg HS PO 01/31/18 21:00 03/02/18 20:59 Tramadol HCl (Ultram Tab) 50 mg Q4H PRN PO 01/31/18 14:30 03/02/18 14:29 Cholecalciferol (Vitamin D Tab) 2,000 inter.unit DAILY PO 02/01/18 09:00 03/03/18 08:59 02/02/18 09:26 2,000 INTER.UNIT Ipratropium Ophir (Atrovent 0.02% 0.5MG/2.5ML Neb) 0.5 mg Q6R INH 01/31/18 21:00 03/02/18 20:59 02/02/18 14:10 0.5 MG Levalbuterol (Xopenex 1.25MG/ 0.5ML Neb) 1.25 mg Q6R INH 01/31/18 21:00 03/02/18 20:59 02/02/18 14:10 1.25 MG Ipratropium Ophir (Atrovent 0.02% 0.5MG/2.5ML Neb) 0.5 mg Q4H PRN INH 01/31/18 16:00 03/02/18 15:59 Levalbuterol (Xopenex 0.63 Mg/ 3 Ml Neb) 0.63 mg Q4H PRN INH 01/31/18 16:00 03/02/18 15:59 Piperacillin Sod/ Tazobactam Sod 3.375 gm/Sodium Chloride 115 ml @ 28.75 mls/ hr Q8H IV 01/31/18 17:00 02/07/18 16:59 02/02/18 17:43 28.75 MLS/HR Magnesium Hydroxide (Milk Of Magnesia Susp) 30 ml Q12H PRN PO 01/31/18 16:30 03/02/18 16:29 Dornase Rafael (Pulmozyme Inhalation Soln 2.5ml Amp) 2.5 ml BIDR INH 01/31/18 20:00 03/02/18 19:59 02/02/18 07:02 2.5 ML Insulin Glargine (Lantus Solostar Pen) 8 units DAILY@0800 SC 02/01/18 08:30 03/03/18 08:29 02/02/18 09:35 8 UNITS Guaifenesin (Robitussin Sugar Free Syrup) 100 mg Q6H PRN PO 02/01/18 22:15 03/03/18 22:14 02/02/18 06:32 100 MG Insulin Glargine (Lantus Solostar Pen) 14 units HS SC 02/02/18 21:00 03/04/18 20:59 Heparin Sodium (Porcine) (Heparin Sq 5000 Unit/0.5ml) 5,000 unit Q8 SQ 02/02/18 14:00 03/04/18 13:59 02/02/18 13:38 5,000 UNIT Warfarin Sodium (Coumadin Tab) 3 mg DAILY@16 PO 02/02/18 16:00 03/04/18 15:59 02/02/18 16:49 3 MG Enteral Nutritional Formula (Boost Glucose Control) 1 can TIDM PO 02/03/18 08:00 03/05/18 07:59
[2018-02-02] MEDS: TAMSULOSIN HCL 0.4 MG CAP PO SCH (20:53)
[2018-02-02] MEDS ORDERED: INSULIN GLARGINE SOLOSTAR 100 UNITS/ML 3 ML PEN SC SCH (21:00)
[2018-02-03] VITALS (15 sets, daily range): BP systolic 95–110; BP diastolic 54–83; PULSE 82–94; TEMP 36.5–37.7; O2SAT 88–100
[2018-02-03] MEDS: PIPERACILL/TAZOBAC IV 3.375 GM in NSS 100ML IV SCH ×3 (01:07→17:45)
[2018-02-03] MEDS: LEVALBUTEROL 1.25MG/0.5ML NEB INH SCH ×4 (02:21→19:56)
[2018-02-03] MEDS: IPRATROPIUM BROMIDE NEB SOLN 0.02% 2.5 ML VIAL INH SCH ×4 (02:21→19:56)
[2018-02-03] MEDS: GUAIFENESIN SUGAR FREE 100 MG/5 ML UDC PO PRN (04:09)
[2018-02-03] MEDS: HEPARIN SOD 5000 UNIT/0.5 ML CARP SQ SCH ×3 (05:48→21:04)
[2018-02-03 07:10] LABS: INR 1.3 (0.9-1.1)
[2018-02-03] MEDS: DORNASE ALFA 2.5 ML AMP INH SCH ×2 (07:15→19:56)
[2018-02-03 07:35] LABS: CALCIUM 7.4 mg/dl (8.5-10.1); CREATININE 1.33 mg/dl (0.60-1.40); POTASSIUM 3.8 mmol/L (3.5-5.1)
[2018-02-03] MEDS ORDERED: BOOST GLUCOSE CONTROL PO SCH (08:00)
[2018-02-03] MEDS: CHOLECALCIFEROL 1000 INTER.UNIT TAB PO SCH (08:29)
[2018-02-03] MEDS: PANTOprazole SOD 40 MG TAB PO SCH (08:30)
[2018-02-03] MEDS: INSULIN GLARGINE SOLOSTAR 100 UNITS/ML 3 ML PEN SC SCH (08:32)
[2018-02-03] MEDS: INSULIN ASPART 100 UNITS/ML 3 ML PEN SC SCH ×4 (08:32→21:03)
[2018-02-03] MEDS: BOOST GLUCOSE CONTROL PO SCH ×3 (09:00→17:46)
--- NOTE | 2018-02-03 10:55 | Pharmacy Progress Note ---
Pharmacy Glycemic Short Note 2 Date of Service Feb 03, 2018. OUTPATIENT ANTIDIABETIC REGIMEN: * Lantus 10 units SQ AM + 20 units SQ HS * Novolog per scale Test 02/02/18 11:34 02/02/18 16:58 02/02/18 20:30 02/02/18 20:54 Bedside Glucose 128 mg/dl (70-99) 112 mg/dl (70-99) 244 mg/dl (70-99) 262 mg/dl (70-99) Test 02/03/18 05:01 02/03/18 06:25 02/03/18 07:09 Bedside Glucose 165 mg/dl (70-99) 167 mg/dl (70-99) Random Glucose 173 mg/dl (70-99) ASSESSMENT: 02/03/18 * Patient received 38 units of insulin yesterday * No changes to causes of insulin resistance * Fasting BSG 173: will increase PM Lantus back to 16 (previous "low" fasting BSG most likely reflective of 25 units of basal on 01/31) * Postprandial BSGs WNL except for HS: will not change CF/CR until a trend is witnessed 02/02/18 * Pt has been receiving 45 units of insulin per day with adequate control * 24 units of basal insulin with Lantus * 21 units of prandial insulin with NovoLog * Per previous admission, pt prone to AM hypoglycemia. AM fasting trending downwards today (123 yesterday and today 100). Will slightly decrease PM dose of Lantus to prevent hypo tomorrow. * Post-prandial BSGs in goal range. No changes needed to CF/CR. PLAN FOR INPATIENT GLYCEMIC CONTROL: * Basal insulin - increase PM dose * Lantus 8 units SQ daily in AM, 16 units SQ at HS * Bolus insulin - no change * NovoLog per scale ACHS or Q6hrs while NPO * Goal Range: Low 110 mg/dL - High 140 mg/dL * Correction Factor: 20 mg/dL/unit * Nutritional / Prandial insulin per carb ratio of 1 unit per 6 grams CHO consumed PLAN FOR DISCHARGE: * Significant improvement in A1c with the addition of basal insulin after last admission * A1c 10.4% in Nov 2017 --> now down to 7.4% in January 2018. * Appropriate to continue current outpatient regimen as long as patient is not experiencing hypoglycemia * Pt typically requires less insulin during admission than ordered outpatient dosing, but, this may be due to controlled CHO diet in house.
--- NOTE | 2018-02-03 11:36 | DIAGNOSTIC IMAGING REPORT ---
CHEST ONE VIEW PORTABLE HISTORY: 87 years-old Male pneumonia, hypoxia acute pneumonia with hypoxia COMPARISON: Chest radiograph 02/01/2018 TECHNIQUE: Portable AP view of the chest FINDINGS: Cardiomediastinal and hilar silhouettes are within normal limits. Multifocal multilobar alveolar opacities redemonstrated bilaterally, most pronounced within the right upper lobe and bilateral lung bases which have not significantly changed from comparison. Trace bilateral pleural effusions. Bones of the chest appear grossly intact. Degenerative changes are seen within the shoulders and spine. IMPRESSION: 1. Persistent multifocal multilobar distribution of alveolar opacities suggesting ongoing pneumonia. 2. Trace bilateral pleural effusions. The above report was generated using voice recognition software. It may contain grammatical, syntax or spelling errors. Electronically signed by: Freddie Crane M.D. 02/03/2018 11:35 AM Dictated Date/Time: 02/03/2018 11:33 AM
--- NOTE | 2018-02-03 12:35 | PROGRESS NOTE ---
DATE: 02/03/2018 PROBLEM LIST: Includes: 1. Dyspnea. 2. Pneumonia. 3. Hypoxia. 4. Pulmonary nodule. SUBJECTIVE: Patient reports that his breathing is a little bit stronger today. He is not as tight in his chest. He feels like he is moving air better. He does not feel as congested. He still has some coughing but is not as often. He still has difficulty getting mucus coughed up. Patient states that when he does have a coughing spell, it will wear him out for a brief period of time. He has no discomfort with deep breath or with cough, no chest congestion or heaviness. He has not had any sweats. He is not sure of any fever. No angina. He does not have much of an appetite. He is not sure when his bowels moved last. He does not have any difficulty voiding. OBJECTIVE: GENERAL: Patient is an 87-year-old male lying in bed, was sleeping when I entered but awoken easily, appears a little more comfortable today, does not appear to be having as much difficulty with his breathing. He was able to complete sentences, is appearing less dyspneic with talking. He is alert and oriented. VITAL SIGNS: Temperature 36.8, pulse 82, respirations 20, blood pressure 108/61, pulse oximetry 92% on 6 L. HEENT: Normocephalic and atraumatic. Pupils equal, round, and reactive. [place], little bit dry gingival buccal mucosa. NECK: Thin, no mass, no adenopathy or bruit. CHEST: Patient still does have some coarse wheezing with exhalation, actually is improved from yesterday. No rale or rhonchi noted although difficult to ascertain. CARDIOVASCULAR: Regular rate and rhythm, 2/6 systolic murmur, no gallops, no rubs. GASTROINTESTINAL: Abdomen is soft and nontender. EXTREMITIES: No erythema or edema. NEUROLOGIC: Cranial nerves II through XII grossly intact. No focal deficit. LABORATORY DATA: INR 1.3. BUN 19, creatinine 1.3. Sputum culture is showing moderate normal ruben. IMPRESSION: An 87-year-old male with chronic obstructive pulmonary disease, multiple bouts of pneumonia. At this point, he does seem to be showing some slow improvement. Breath sounds are better. His oxygen demand has decreased from 7.5 L yesterday to 6 L today. This is encouraging as well. At this point, would like to have a repeat chest x-ray. Would also like to get a CBC and iron studies due to his significant weakness and tiredness. I suspect that majority of this is just secondary to his respiratory illness; however, need to rule out iron deficiency or anemia of some type. Otherwise, we will reevaluate in the morning. He is to continue his pulmonary modalities as they are. Patient seen and case reviewed and plan agreed upon. LEATHA
[2018-02-03] MEDS: WARFARIN SOD 3 MG TAB PO SCH (15:55)
--- NOTE | 2018-02-03 18:32 | Progress Note ---
Medicine Progress Note Date & Time of Visit: Feb 03, 2018 at 10:28. Subjective Pt was seen and examined Lying in bed sleeping When i called his name , pt woke up He said that his breathing slightly improved Continue to feel weak Denies any fever, chest pain and palpitation Objective Last 8 Hrs Date Time Temp Pulse Resp B/P (MAP) Pulse Ox O2 Delivery O2 Flow Rate FiO2 02/03/18 16:00 100 Non-Rebreather 15.0 02/03/18 15:57 36.5 90 22 105/66 (79) 100 Non-Rebreather 15.0 02/03/18 14:24 93 20 88 Mask 15.0 02/03/18 12:00 92 Mask 7.5 02/03/18 11:44 36.6 82 16 95/54 (68) 89 Physical Exam: General- No acute distress Head- atraumatic Eyes- PERRL, EOMI ENT- oropharynx clear Neck- supple, no JVD Lungs- Decrease BS Heart- regular rhythm Abdomen- normal bowel sounds, soft Extremities- no calf tenderness Neuro- alert, oriented, PERRL, EOMI Skin- warm & dry Laboratory Results: Last 24 Hours Test 02/02/18 20:30 02/02/18 20:54 02/03/18 05:01 02/03/18 06:25 Bedside Glucose 244 mg/dl 262 mg/dl 165 mg/dl Prothrombin Time 13.2 SECONDS Prothromb Time International Ratio 1.3 Sodium Level 135 mmol/L Potassium Level 3.8 mmol/L Chloride Level 102 mmol/L Carbon Dioxide Level 29 mmol/L Anion Gap 4.0 mmol/L Blood Urea Nitrogen 19 mg/dl Creatinine 1.33 mg/dl Est Creatinine Clear Calc Drug Dose 43.8 ml/min Estimated GFR () 55.7 Estimated GFR (Non- 48.1 BUN/Creatinine Ratio 14.2 Random Glucose 173 mg/dl Calcium Level 7.4 mg/dl Magnesium Level 2.1 mg/dl Test 02/03/18 07:09 02/03/18 11:36 02/03/18 16:21 Bedside Glucose 167 mg/dl 178 mg/dl 130 mg/dl Assessment & Plan Pt with Hx hospital admission 12/15/17-01/19/18 for acute respiratory failure, influenza A, MSSA pneumonia, [place] and D/C to [facility] presented with increased cough and SOB, & fever 100.4F today ACUTE RESPIRATORY FAILURE Possible secondary to hospital associated pneumonia Hypoxia on admission with oxygen sat in the 75% CXR showed right basilar interstitial thickening persists. Left upper lobe nodular airspace opacity is also noted Sputum and blood cx pending MRSA swab negative Pro BNP WNL Received Vanco and Zosyn IV Vanco D/C and continue IV Zosyn Pulmonology on board Bronchoscopy is contraindicated, but if his breathing worsening, will consider it. Continue respiratory treatment Consider CT chest when pt stable Continue oxygen supplement 02/03 Continue wean his oxygen, down to 6L Continue IV Zosyn Pulmonary on board continue neb treatment On flutter valve and vibration vest. 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 INR: 1.3 continue Coumadin 3mg Hx THROMBOCYTOPENIA Plt 161 Monitor CBC HISTORY CHRONIC DVT RLE On coumdin with INR 1.3 Doppler of LE showed no evidence of deep venous thrombosis in the left lower extremity. Nonocclusive thrombus in the right posterior tibial and peroneal veins. The thrombus in the right posterior tibial vein may be new/acute. Continue PERRY hose BPH Continue Flomax NECK PAIN MRI C-spine showed moderate multilevel cervical spondylosis Continue tramadol as needed pain Stable DVT Prophylaxis On heparin sub until INR therapeutic On Coumadin (INR 1.3 today) Disposition Plan to discharge to [facility] once medically stable. Current Inpatient Medications: Current Inpatient Medications Medications (Trade) Dose Ordered Sig/Krystal Route Start Time Stop Time Status Last Admin Dose Admin Acetaminophen (Tylenol Tab) 650 mg Q4H PRN PO 01/31/18 13:15 03/02/18 13:14 02/03/18 04:09 650 MG Nitroglycerin (Nitrostat Tab) 0.4 mg UD PRN SL 01/31/18 13:15 03/02/18 13:14 Miscellaneous Information (Consult) 1 ea UD PRN N/A 01/31/18 13:30 03/02/18 13:29 Insulin Aspart (novoLOG ASPART) SLIDING SCALE If C... ACHS SC 01/31/18 16:00 03/02/18 15:59 02/03/18 17:45 2 UNITS Glucose (Glucose 40% Gel) 15-30 GRAMS 15 GRAMS... UD PRN PO 01/31/18 14:15 03/02/18 14:14 Glucose (Glucose Chew Tab) 4-8 Tablets 4 Tabl... UD PRN PO 01/31/18 14:15 03/02/18 14:14 Dextrose (Dextrose 50% 50ML Syringe) 25-50ML OF 50% DW IV FOR... UD PRN IV 01/31/18 14:15 03/02/18 14:14 Glucagon (Glucagon Inj) 1 mg UD PRN SQ 01/31/18 14:15 03/02/18 14:14 Miscellaneous Information (Consult Glycemic Management Pharmacy) 1 ea UD PRN N/A 01/31/18 14:31 03/02/18 14:30 Pantoprazole Sodium (Protonix Tab) 40 mg DAILY PO 02/01/18 09:00 03/03/18 08:59 02/03/18 08:30 40 MG Tamsulosin HCl (Flomax Cap) 0.4 mg HS PO 01/31/18 21:00 03/02/18 20:59 02/02/18 20:53 0.4 MG Tramadol HCl (Ultram Tab) 50 mg Q4H PRN PO 01/31/18 14:30 03/02/18 14:29 Cholecalciferol (Vitamin D Tab) 2,000 inter.unit DAILY PO 02/01/18 09:00 03/03/18 08:59 02/03/18 08:29 2,000 INTER.UNIT Ipratropium [place] (Atrovent 0.02% 0.5MG/2.5ML Neb) 0.5 mg Q6R INH 01/31/18 21:00 03/02/18 20:59 02/03/18 14:24 0.5 MG Levalbuterol (Xopenex 1.25MG/ 0.5ML Neb) 1.25 mg Q6R INH 01/31/18 21:00 03/02/18 20:59 02/03/18 14:24 1.25 MG Ipratropium [place] (Atrovent 0.02% 0.5MG/2.5ML Neb) 0.5 mg Q4H PRN INH 01/31/18 16:00 03/02/18 15:59 Levalbuterol (Xopenex 0.63 Mg/ 3 Ml Neb) 0.63 mg Q4H PRN INH 01/31/18 16:00 03/02/18 15:59 Piperacillin Sod/ Tazobactam Sod 3.375 gm/Sodium Chloride 115 ml @ 28.75 mls/ hr Q8H IV 01/31/18 17:00 02/07/18 16:59 02/03/18 17:45 28.75 MLS/HR Magnesium Hydroxide (Milk Of [place] Susp) 30 ml Q12H PRN PO 01/31/18 16:30 03/02/18 16:29 Dornase [place] (Pulmozyme Inhalation Soln 2.5ml Amp) 2.5 ml BIDR INH 01/31/18 20:00 03/02/18 19:59 02/03/18 07:15 2.5 ML Insulin Glargine (Lantus Solostar Pen) 8 units DAILY@0800 SC 02/01/18 08:30 03/03/18 08:29 02/03/18 08:32 8 UNITS Guaifenesin (Robitussin Sugar Free Syrup) 100 mg Q6H PRN PO 02/01/18 22:15 03/03/18 22:14 02/03/18 04:09 100 MG Heparin Sodium (Porcine) (Heparin Sq 5000 Unit/0.5ml) 5,000 unit Q8 SQ 02/02/18 14:00 03/04/18 13:59 02/03/18 05:48 5,000 UNIT Warfarin Sodium (Coumadin Tab) 3 mg DAILY@16 PO 02/02/18 16:00 03/04/18 15:59 02/03/18 15:55 3 MG Enteral Nutritional Formula (Boost Glucose Control) 1 can TIDM PO 02/03/18 09:00 03/05/18 07:59 02/03/18 17:46 1 CAN Insulin Glargine (Lantus Solostar Pen) 16 units HS SC 02/03/18 21:00 03/05/18 20:59
[2018-02-03] MEDS: TAMSULOSIN HCL 0.4 MG CAP PO SCH (20:57)
[2018-02-03] MEDS ORDERED: INSULIN GLARGINE SOLOSTAR 100 UNITS/ML 3 ML PEN SC SCH (21:00)
[2018-02-04] VITALS (15 sets, daily range): BP systolic 105–130; BP diastolic 58–74; PULSE 84–92; TEMP 36.3–37.4; O2SAT 94–100
[2018-02-04] MEDS: PIPERACILL/TAZOBAC IV 3.375 GM in NSS 100ML IV SCH ×4 (00:58→23:54)
[2018-02-04] MEDS: LEVALBUTEROL 1.25MG/0.5ML NEB INH SCH ×4 (01:56→19:08)
[2018-02-04] MEDS: IPRATROPIUM BROMIDE NEB SOLN 0.02% 2.5 ML VIAL INH SCH ×4 (01:56→19:08)
[2018-02-04] MEDS: HEPARIN SOD 5000 UNIT/0.5 ML CARP SQ SCH (05:49)
[2018-02-04 06:42] LABS: HEMATOCRIT 32.4 % (42-52); HEMOGLOBIN 10.2 g/dL (14.0-18.0); MEAN CELL VOLUME 92.6 fL (80-100); MEAN CORPUSCULAR HEMOGLOBIN 29.1 pg (25-34); MEAN CORPUSCULAR HGB CONC 31.5 g/dl (32-36); MEAN PLATELET VOLUME 8.7 fL (7.4-10.4); PLATELET COUNT 157 K/uL (130-400); RED CELL DISTRIBUTION WIDTH CV 16.2 % (11.5-14.5); RED CELL DISTRIBUTION WIDTH SD 55.2 fL (36.4-46.3)
[2018-02-04 06:49] LABS: INR 1.4 (0.9-1.1)
[2018-02-04] MEDS: DORNASE ALFA 2.5 ML AMP INH SCH ×2 (07:23→19:08)
[2018-02-04] MEDS: PANTOprazole SOD 40 MG TAB PO SCH (08:07)
[2018-02-04] MEDS: CHOLECALCIFEROL 1000 INTER.UNIT TAB PO SCH (08:08)
[2018-02-04] MEDS: BOOST GLUCOSE CONTROL PO SCH ×3 (08:08→17:12)
[2018-02-04] MEDS: INSULIN ASPART 100 UNITS/ML 3 ML PEN SC SCH ×4 (08:17→21:13)
[2018-02-04] MEDS: INSULIN GLARGINE SOLOSTAR 100 UNITS/ML 3 ML PEN SC SCH (08:18)
--- NOTE | 2018-02-04 10:49 | DIAGNOSTIC IMAGING REPORT ---
CHEST ONE VIEW PORTABLE CLINICAL HISTORY: Respiratory failure. COMPARISON STUDY: Chest CT January 01, 2018 and chest radiograph February 03, 2018. FINDINGS: Small bilateral pleural effusions are unchanged. There is no pneumothorax. Right upper lobe with volume loss and airspace opacity persists. Interstitial thickening with airspace opacities within the remainder of the lungs have slightly increased. IMPRESSION: 1. Redemonstration of right upper lobe airspace opacity. Slight interval increase in airspace opacity within the remainder of the lungs. The findings favor pneumonia. However, pulmonary edema or ARDS appear similar. 2. Small bilateral pleural effusions. Electronically signed by: Taye Estrella M.D. 02/04/2018 10:48 AM Dictated Date/Time: 02/04/2018 10:45 AM
[2018-02-04] MEDS: ENOXAPARIN 80 MG/0.8 ML SYR SQ SCH ×2 (12:14→22:44)
--- NOTE | 2018-02-04 12:26 | Pharmacy Progress Note ---
Pharmacy Glycemic Short Note 2 Date of Service Feb 04, 2018. OUTPATIENT ANTIDIABETIC REGIMEN: * Lantus 10 units SQ AM + 20 units SQ HS * Novolog per scale Item Value Date Time Bedside Glucose 165 mg/dl H 02/03/18 0501 Bedside Glucose 167 mg/dl H 02/03/18 0709 Bedside Glucose 178 mg/dl H 02/03/18 1136 Bedside Glucose 130 mg/dl H 02/03/18 1621 Bedside Glucose 241 mg/dl H 02/03/18 2031 Bedside Glucose 180 mg/dl H 02/04/18 0745 Bedside Glucose 279 mg/dl H 02/04/18 1101 ASSESSMENT: * Pt has been receiving 55 units of insulin per day with sub-adequate control * 24 units of basal insulin with Lantus * 31 units of prandial insulin with NovoLog * AM fasting BSG is elevated at 180mg/dl and trending upwards (was 100mg/dl on and 167mg/dl on 02/03)--> more basal insulin is needed. * Post-prandial BSGs elevated. Initially thought that it was d/t Boost supplement CHO not being covered with NovoLog (31g per serving with flavoring) but after speaking to RN, pt is just taking a few sips of the Boost. Therefore, more CF/CR insulin needed. PLAN FOR INPATIENT GLYCEMIC CONTROL: * Basal insulin - increase * Lantus 10 units SQ daily in AM, 18 units SQ at HS * Bolus insulin - no change * NovoLog per scale ACHS or Q6hrs while NPO * Goal Range: Low 110 mg/dL - High 140 mg/dL * Correction Factor: 20 mg/dL/unit * Nutritional / Prandial insulin per carb ratio of 1 unit per 5 grams CHO consumed PLAN FOR DISCHARGE: * Significant improvement in A1c with the addition of basal insulin after last admission * A1c 10.4% in Nov 2017 --> now down to 7.4% in January 2018. * Appropriate to continue current outpatient regimen as long as patient is not experiencing hypoglycemia * Pt typically requires less insulin during admission than ordered outpatient dosing, but, this may be due to controlled CHO diet in house.
--- NOTE | 2018-02-04 12:30 | PULMONARY PROGRESS NOTE ---
DATE: 02/04/2018 PROBLEM LIST: Includes: 1. Dyspnea. 2. Pneumonia. 3. Hypoxia. 4. Pulmonary nodule. SUBJECTIVE: The patient unfortunately has deteriorated since yesterday. Reviewing the nurse's notes yesterday afternoon, he became more short of breath and more hypoxic. He was put on 15 L nonrebreather and saturations did go back up to 92%-94%. Respiratory therapy recommended to try and decrease him and switch over to OxyMask 10 L. Unfortunately, his saturations dropped back down to the 80s, so he was put back on 15 L nonrebreather. Overnight status did not really change. The patient was evaluated today, he reports that his breathing is worse. States he is having a hard time catching his breath. States his chest feels more congested and tight. He continues to be retired. No energy. Does not have an appetite, does not feel like doing anything. No headache. Denies any chest pain or pressure. No GI difficulty. No swelling in his extremities. OBJECTIVE: GENERAL: The patient is an 87-year-old male lying in bed, does have a nonrebreather on, was sleeping when I entered did arouse, but is very tired and lethargic. VITAL SIGNS: Temperature is 36.6, pulse 92, respirations 22, blood pressure 120/66, pulse ox 94% on 15 L nonrebreather. HEENT: Normocephalic, atraumatic. Pupils equal, round react to light, and accommodation. Extraocular movements are intact. [place] and dry gingival and buccal mucosa. NECK: It is thin, no mass, no adenopathy or bruit. CHEST: Diminished breath sounds on the left, a coarse wheezing throughout. Diminished breath sounds throughout. CARDIOVASCULAR: Difficult to ascertain due to overlying breath sounds. He does appear to have regular rate and rhythm. No murmur appreciated but murmur was there yesterday and again difficult to ascertain due to breath sounds. ABDOMEN: Bowel sounds present. Abdomen soft, nontender. No guarding, rigidity, or organomegaly. EXTREMITIES: No erythema, no edema. NEUROLOGIC: Cranial nerves II through XII. The patient is groggy, but arousable, grossly intact at this time. LABORATORY DATA: Shows white count 10,000, H and H of 10.2 and 32.4, platelet count 157,000. ABG done today shows a pH of 7.4, pCO2 of 45, pO2 of 80 on 15 L nonrebreather. INR today 1.4. Chest x-ray from this morning is pending. IMPRESSION: This is an 87-year-old male who was admitted for pneumonia, chronic obstructive pulmonary disease exacerbation, has decompensated significantly since yesterday. At this time, the patient was evaluated by both myself and Dr. Gerard. Dr. Gerard ordered blood gas. Per Dr. Gerard's AA gradient is elevated on the blood gas. We need to consider changes on chest x-ray, also need to consider pulmonary embolism due to subtherapeutic INR, although patient has been on heparin, at this point we are going to do heparin drip, await chest x-ray. Changes on chest x-ray, we will order echocardiogram and deep vein thrombosis studies and if chest x-ray is not showing any significant changes, again need to evaluate for pulmonary embolism but also need to look for cardiac or other etiology for this.. At this time, we will wait chest x-ray. Patient was seen examined and above plan agreed upon. LEATHA
[2018-02-04] MEDS ORDERED: METHYLPREDNISOLONE IV 40 MG in SYRINGE 0 ML IV ONE (14:00)
--- NOTE | 2018-02-04 14:27 | ECHOCARDIOGRAM REPORT ---
*NOTICE TO RECEIVING DEMOCRAT AGENCY This information is strictly Confidential and protected under [place] law. [place] law prohibits you from making any further disclosure of this information unless further disclosure is expressly permitted by the written consent of the person to whom it pertains or is authorized by law. A general authorization for the release of medical or other information is not sufficient for this purpose. Hospital accepts no responsibility if the information is made available to any other person, INCLUDING THE PATIENT. Interpretation Summary * Name: JASMIN SUÁREZ Study Date: 02/04/2018 01:03 PM BP: 130/74 mmHg * Patient Location: [facility]\S\N277\S\2 HR: 91 * : 1930 (M/d/yyyy) Gender: Male Height: 72 in * Age: 87 yrs Ethnicity: [place] Weight: 168 lb * Ordering Physician: Uriel Feng * Referring Physician: Self, Referred * Performed By: Marlene Rangel RDCS * * Reason For Study: Alteration of consciousness, new onset dyspnea, subtherapeutic INR, elvaluate right heart strain * BSA: 2.0 m2 * Compared to prior study, there is no significant change. * -- Conclusions -- * The left ventricle is normal in size. * There is mild concentric left ventricular hypertrophy. * Ejection Fraction = 55-60%. * The right ventricle is normal size. * The right ventricular systolic function is normal. * The left atrial size is normal. * Right atrial size is normal. * There is trace tricuspid regurgitation. * There is no evidence of pulmonary hypertension. The PA systolic pressure is less than 36 mmHg. * Compared to prior study, there is no significant change. Procedure Details * A two-dimensional transthoracic echocardiogram was performed. * A two-dimensional transthoracic echocardiogram with pulsed and continuous Doppler was performed. * A two-dimensional transthoracic echocardiogram, with color flow Doppler was performed. Left Ventricle * The left ventricle is normal in size. * There is mild concentric left ventricular hypertrophy. * Ejection Fraction = 55-60%. * Left ventricular systolic function is normal. Right Ventricle * The right ventricle is normal size. * The right ventricular systolic function is normal. Atria * The left atrial size is normal. * Right atrial size is normal. * No ASD detected; PFO is not assessed. Mitral Valve * The mitral valve anatomy is normal. * Significant mitral regurgitation is absent. Tricuspid Valve * The tricuspid valve anatomy is normal. * There is trace tricuspid regurgitation. Aortic Valve * No hemodynamically significant valvular aortic stenosis. * There is no significant aortic regurgitation. Pulmonic Valve * The pulmonic valve is not well visualized. Great Vessels * The aortic root and proximal ascending aorta are normal sized. Pericardium/Pleural * There is no pericardial effusion. Great Vessels * There is no evidence of pulmonary hypertension. The PA systolic pressure is less than 36 mmHg. Left Ventricular Diastolic Function * Grade I diastolic dysfunction, (abnormal relaxation pattern). MMode 2D Measurements and Calculations IVSd 0.96 cm LVIDd 3.7 cm LVIDs 2.6 cm LVPWd 1.1 cm IVS/LVPW 0.90 FS 29.4 % EDV(Teich) 56.8 ml ESV(Teich) 24.3 ml EF(Teich) 57.2 % EDV(cubed) 49.2 ml ESV(cubed) 17.3 ml EF(cubed) 64.8 % LV mass(C)d 113.6 grams LV mass(C)dI 57.4 grams/m\S\2 SV(Teich) 32.5 ml SI(Teich) 16.4 ml/m\S\2 SV(cubed) 31.9 ml SI(cubed) 16.1 ml/m\S\2 Doppler Measurements and Calculations MV E max ana 67.2 cm/sec MV A max ana 104.1 cm/sec MV E/A 0.65 MV dec time 0.26 sec Ao V2 max 100.3 cm/sec Ao max PG 4.0 mmHg Ao max PG (full) 1.7 mmHg LV V1 max PG 2.3 mmHg LV V1 max 76.3 cm/sec TR max ana 326.1 cm/sec
[2018-02-04] MEDS ORDERED: INSULIN GLARGINE SOLOSTAR 100 UNITS/ML 3 ML PEN SC SCH (16:45)
[2018-02-04] MEDS: WARFARIN SOD 3 MG TAB PO SCH (17:34)
--- NOTE | 2018-02-04 18:53 | Progress Note ---
Medicine Progress Note Date & Time of Visit: Feb 04, 2018 at 11:45. Subjective Pt was seen and examined Lying in bed with respiratory distress Pt breathing worsening today he was on 15L oxymask He said that he feels weak Denies any chest pain, palpitation and fever Objective Last 8 Hrs Date Time Temp Pulse Resp B/P (MAP) Pulse Ox O2 Delivery O2 Flow Rate FiO2 02/04/18 16:00 94 BiPAP 50 02/04/18 15:56 37.3 87 20 111/64 (80) 95 BiPAP 02/04/18 14:16 87 26 99 BiPAP/CPAP 80 02/04/18 14:16 87 99 80 02/04/18 12:00 94 BiPAP 80 02/04/18 11:51 37.4 91 20 130/74 (92) 100 BiPAP Physical Exam: General- No acute distress Head- atraumatic Eyes- PERRL, EOMI ENT- oropharynx clear Neck- supple, no JVD Lungs- +Wheezing Heart- regular rhythm Abdomen- normal bowel sounds, soft Extremities- no calf tenderness Neuro- alert, oriented, PERRL, EOMI Skin- warm & dry Laboratory Results: Last 24 Hours Test 02/03/18 20:31 02/04/18 06:18 02/04/18 07:45 02/04/18 10:03 Bedside Glucose 241 mg/dl 180 mg/dl White Blood Count 10.70 K/uL Red Blood Count 3.50 M/uL Hemoglobin 10.2 g/dL Hematocrit 32.4 % Mean Corpuscular Volume 92.6 fL Mean Corpuscular Hemoglobin 29.1 pg Mean Corpuscular Hemoglobin Concent 31.5 g/dl RDW Standard Deviation 55.2 fL RDW Coefficient of Variation 16.2 % Platelet Count 157 K/uL Mean Platelet Volume 8.7 fL Prothrombin Time 15.0 SECONDS Prothromb Time International Ratio 1.4 Magnesium Level 2.2 mg/dl Iron Level 19 mcg/dl Total Iron Binding Capacity 166 mcg/dl Arterial Blood pH 7.44 Arterial Blood Partial Pressure CO2 45 mmHg Arterial Blood Partial Pressure O2 80 mm/Hg Arterial Blood HCO3 30 mmol/L Arterial Blood Oxygen Saturation 95.3 % Arterial Blood Base Excess 5.3 mEq/L Arterial Blood Gas Delivery 15 L Santana Test POS Test 02/04/18 11:01 02/04/18 16:14 Bedside Glucose 279 mg/dl 108 mg/dl Assessment & Plan Pt with Hx hospital admission 12/15/17-01/19/18 for acute respiratory failure, influenza A, MSSA pneumonia, [place]SA[place] and D/C to [facility] presented with increased cough and SOB, & fever 100.4F today ACUTE RESPIRATORY FAILURE Possible secondary to hospital associated pneumonia Hypoxia on admission with oxygen sat in the 75% CXR showed right basilar interstitial thickening persists. Left upper lobe nodular airspace opacity is also noted Sputum and blood cx pending MRSA swab negative Pro BNP WNL Received Vanco and Zosyn IV Vanco D/C and continue IV Zosyn Pulmonology on board Bronchoscopy is contraindicated, but if his breathing worsening, will consider it. Continue respiratory treatment Consider CT chest when pt stable Continue oxygen supplement 02/04 Respiratory worsening today ABG done today suggest no CO2 retention, but elevated AA gradient Repeat CXR done today showed redemonstration of right upper lobe airspace opacity. Slight interval increase in airspace opacity within the remainder of the lungs Continue IV Zosyn Continue oxygen supplement Pulmonary on board continue neb treatment On flutter valve and vibration vest. Starting on solumedrol 40mg TID Starting on lovenox therapeutic dose since his INR subtherapeutic ECHO * The left ventricle is normal in size. * There is mild concentric left ventricular hypertrophy. * Ejection Fraction = 55-60%. * The right ventricle is normal size. * The right ventricular systolic function is normal. * The left atrial size is normal. * Right atrial size is normal. * There is trace tricuspid regurgitation. * There is no evidence of pulmonary hypertension. The PA systolic pressure is less than 36 mmHg. 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 INR: 1.4 continue Coumadin 3mg Hx THROMBOCYTOPENIA Plt 161 Monitor CBC HISTORY CHRONIC DVT RLE On coumadin with INR 1.4 Doppler of LE showed no evidence of deep venous thrombosis in the left lower extremity. Nonocclusive thrombus in the right posterior tibial and peroneal veins. The thrombus in the right posterior tibial vein may be new/acute. Continue PERRY andino Starting on lovenox therapeutic dose since his INR subtherapeutic BPH Continue Flomax NECK PAIN MRI C-spine showed moderate multilevel cervical spondylosis Continue tramadol as needed pain Stable DVT Prophylaxis D/C heparin subq Starting on lovenox therapeutic dose since his INR subtherapeutic On Coumadin (INR 1.4 today) Disposition Plan to discharge to [facility] once medically stable. Current Inpatient Medications: Current Inpatient Medications Medications (Trade) Dose Ordered Sig/Krystal Route Start Time Stop Time Status Last Admin Dose Admin Acetaminophen (Tylenol Tab) 650 mg Q4H PRN PO 01/31/18 13:15 03/02/18 13:14 02/03/18 04:09 650 MG Nitroglycerin (Nitrostat Tab) 0.4 mg UD PRN SL 01/31/18 13:15 03/02/18 13:14 Miscellaneous Information (Consult) 1 ea UD PRN N/A 01/31/18 13:30 03/02/18 13:29 Insulin Aspart (novoLOG ASPART) SLIDING SCALE If C... ACHS SC 01/31/18 16:00 03/02/18 15:59 02/04/18 17:22 5 UNITS Glucose (Glucose 40% Gel) 15-30 GRAMS 15 GRAMS... UD PRN PO 01/31/18 14:15 03/02/18 14:14 Glucose (Glucose Chew Tab) 4-8 Tablets 4 Tabl... UD PRN PO 01/31/18 14:15 03/02/18 14:14 Dextrose (Dextrose 50% 50ML Syringe) 25-50ML OF 50% DW IV FOR... UD PRN IV 01/31/18 14:15 03/02/18 14:14 Glucagon (Glucagon Inj) 1 mg UD PRN SQ 01/31/18 14:15 03/02/18 14:14 Miscellaneous Information (Consult Glycemic Management Pharmacy) 1 ea UD PRN N/A 01/31/18 14:31 03/02/18 14:30 Pantoprazole Sodium (Protonix Tab) 40 mg DAILY PO 02/01/18 09:00 03/03/18 08:59 02/04/18 08:07 40 MG Tamsulosin HCl (Flomax Cap) 0.4 mg HS PO 01/31/18 21:00 03/02/18 20:59 02/03/18 20:57 0.4 MG Tramadol HCl (Ultram Tab) 50 mg Q4H PRN PO 01/31/18 14:30 03/02/18 14:29 Cholecalciferol (Vitamin D Tab) 2,000 inter.unit DAILY PO 02/01/18 09:00 03/03/18 08:59 02/04/18 08:08 2,000 INTER.UNIT Ipratropium [place] (Atrovent 0.02% 0.5MG/2.5ML Neb) 0.5 mg Q6R INH 01/31/18 21:00 03/02/18 20:59 02/04/18 14:16 0.5 MG Levalbuterol (Xopenex 1.25MG/ 0.5ML Neb) 1.25 mg Q6R INH 01/31/18 21:00 03/02/18 20:59 02/04/18 14:16 1.25 MG Ipratropium [place] (Atrovent 0.02% 0.5MG/2.5ML Neb) 0.5 mg Q4H PRN INH 01/31/18 16:00 03/02/18 15:59 Levalbuterol (Xopenex 0.63 Mg/ 3 Ml Neb) 0.63 mg Q4H PRN INH 01/31/18 16:00 03/02/18 15:59 Piperacillin Sod/ Tazobactam Sod 3.375 gm/Sodium Chloride 115 ml @ 28.75 mls/ hr Q8H IV 01/31/18 17:00 02/07/18 16:59 02/04/18 17:17 28.75 MLS/HR Magnesium Hydroxide (Milk Of Magnesia Susp) 30 ml Q12H PRN PO 01/31/18 16:30 03/02/18 16:29 Dornase Rafael (Pulmozyme Inhalation Soln 2.5ml Amp) 2.5 ml BIDR INH 01/31/18 20:00 03/02/18 19:59 02/04/18 07:23 2.5 ML Guaifenesin (Robitussin Sugar Free Syrup) 100 mg Q6H PRN PO 02/01/18 22:15 03/03/18 22:14 02/03/18 04:09 100 MG Warfarin Sodium (Coumadin Tab) 3 mg DAILY@16 PO 02/02/18 16:00 03/04/18 15:59 02/04/18 17:34 3 MG Enteral Nutritional Formula (Boost Glucose Control) 1 can TIDM PO 02/03/18 09:00 03/05/18 07:59 02/04/18 17:12 1 CAN Enoxaparin Sodium (Lovenox Inj) 80 mg Q12H SQ 02/04/18 11:00 03/06/18 10:59 02/04/18 12:14 80 MG Insulin Glargine (Lantus Solostar Pen) 10 units DAILY@0800 SC 02/05/18 08:00 03/07/18 07:59 Insulin Glargine (Lantus Solostar Pen) 18 units HS SC 02/04/18 16:45 03/06/18 16:44 02/04/18 17:23 18 UNITS Methylprednisolone Sodium Succinate 40 mg/Syringe 0.64 ml @ 1.5 mls/min TID IV 02/04/18 21:00 03/06/18 20:59
--- NOTE | 2018-02-04 20:41 | DIAGNOSTIC IMAGING REPORT ---
VENOUS DOPPLER LWR EXT BILA CLINICAL HISTORY: 87 years-old Male presenting with subtherapeutic anticoagulation, sudden worsening respiratory status. TECHNIQUE: Real-time grayscale and color and spectral Doppler ultrasound imaging of the veins of the bilateral lower extremities was performed. Compression and augmentation were also utilized. COMPARISON: None. FINDINGS: Right: Common femoral vein: Patent. Greater saphenous vein: Patent. Deep femoral vein: Patent. Femoral vein: Patent. Popliteal vein: Patent. Calf veins: Filling defect consistent with thrombus in the posterior tibial and peroneal veins. This appears nonocclusive. Anterior tibial vein patent. Left: Common femoral vein: Patent. Greater saphenous vein: Patent. Deep femoral vein: Patent. Femoral vein: Patent. Popliteal vein: Patent. Calf veins: Patent. Other: None. IMPRESSION: 1. Nonocclusive thrombus in the right posterior tibial and right peroneal veins, consistent with acute deep venous thrombosis. 2. No evidence of deep venous thrombosis in the left lower extremity. The report will be called/faxed according to standard departmental protocol. Electronically signed by: Vin Christensen M.D. 02/04/2018 8:40 PM Dictated Date/Time: 02/04/2018 8:37 PM
[2018-02-04] MEDS: TAMSULOSIN HCL 0.4 MG CAP PO SCH (21:11)
[2018-02-04] MEDS: METHYLPREDNISOLONE IV 40 MG in SYRINGE 0 ML IV SCH (21:11)
[2018-02-05] VITALS (13 sets, daily range): BP systolic 97–131; BP diastolic 54–70; PULSE 81–94; TEMP 36.3–36.6; O2SAT 91–95
[2018-02-05] MEDS: LEVALBUTEROL 1.25MG/0.5ML NEB INH SCH ×4 (01:56→19:01)
[2018-02-05] MEDS: IPRATROPIUM BROMIDE NEB SOLN 0.02% 2.5 ML VIAL INH SCH ×4 (01:56→19:01)
[2018-02-05 07:17] LABS: HEMATOCRIT 32.9 % (42-52); HEMOGLOBIN 10.3 g/dL (14.0-18.0); MEAN CELL VOLUME 92.7 fL (80-100); MEAN CORPUSCULAR HGB CONC 31.3 g/dl (32-36); PLATELET COUNT 172 K/uL (130-400); RED CELL DISTRIBUTION WIDTH SD 55.2 fL (36.4-46.3)
[2018-02-05] MEDS: DORNASE ALFA 2.5 ML AMP INH SCH ×2 (07:19→19:02)
[2018-02-05 07:35] LABS: INR 1.9 (0.9-1.1)
[2018-02-05 07:44] LABS: CALCIUM 7.8 mg/dl (8.5-10.1); CREATININE 1.18 mg/dl (0.60-1.40); POTASSIUM 3.9 mmol/L (3.5-5.1)
[2018-02-05] MEDS ORDERED: INSULIN GLARGINE SOLOSTAR 100 UNITS/ML 3 ML PEN SC SCH ×2 (08:00→21:15)
[2018-02-05] MEDS: BOOST GLUCOSE CONTROL PO SCH ×3 (08:00→17:27)
[2018-02-05] MEDS: METHYLPREDNISOLONE IV 40 MG in SYRINGE 0 ML IV SCH ×3 (08:43→21:36)
[2018-02-05] MEDS: PANTOprazole SOD 40 MG TAB PO SCH (08:44)
[2018-02-05] MEDS: CHOLECALCIFEROL 1000 INTER.UNIT TAB PO SCH (08:44)
[2018-02-05] MEDS: PIPERACILL/TAZOBAC IV 3.375 GM in NSS 100ML IV SCH ×2 (08:51→17:30)
[2018-02-05] MEDS: INSULIN ASPART 100 UNITS/ML 3 ML PEN SC SCH ×4 (08:53→21:00)
[2018-02-05] MEDS ORDERED: INSULIN GLARGINE SOLOSTAR 100 UNITS/ML 3 ML PEN SC ONE (09:30)
--- NOTE | 2018-02-05 11:49 | Pulmonology Progress Note ---
Pulmonary Progress Note Date of Service Feb 05, 2018. Attending Dr. Gerard Subjective Patient notes his overall pulmonary status has improved on the BiPAP but continues to be dyspneic at rest and with notable fatigue. Objective Patient has improvement in his pulmonary status but continues to require BiPAP therapy Vital signs: BiPAP / rate 25 FiO2 50%, SAO2: 91-95% Respiratory: Rhonchi appreciated especially in the right upper lobe Cardiac: S1-S2, tachycardic, systolic murmur best appreciated right upper sternal border Abdomen: Positive bowel sounds soft nontender Extremities: No clubbing cyanosis or edema noted [employer]THLETIC TRAINER: Cranial nerves grossly intact, strength 4-5 bilaterally MRSA nasal screen negative Labs INR--1.9 MRSA nasal screen negative Radiology CXR 02/04/2018: RUL opacification, with increasing opacifications throughout the lungs DVT 02/04/2018: Nonocclusive thrombus in right posterior tibial/peroneal veins Medications 1. Methylprednisolone 40 mg t.i.d. 2. Enoxaparin 80 mg Q 12 3. Warfarin 3 mg daily--current INR 1.9 4. Pantoprazole 40 mg daily 5. Atrovent/Xopenex nebulizer q.6 hours/p.r.n. 6. Zosyn 3.375 grams q. 8 hours 7. Dornase rafael 2.5 milliliters b.i.d. nebulized Assessment & Plan 87-year-old gentleman admitted with increasing fatigue mild shortness of breath and new infiltrative pattern in the right upper lobe via CXR: 1. Pneumonia: Patient is currently being treated with Zosyn and BiPAP as well as methylprednisolone. CXR on 02/04/2018 shows increasing infiltrative patterns overall poor prognosis. 2. Shortness of breath: Patient currently requiring BiPAP therapy to maintain proper her respiratory status. Will check ABG to see if we can safely switch him to high-flow nasal cannula. But as current backup respiratory rate of 25 I feel will most likely not be able to switch him to the nasal/high-flow system as work of breathing is notably elevated. 3. DVT: DVT study performed 02/04/2018 shows nonocclusive thrombus in the right posterior tibial/bronchial veins which are distal DVTs not proximal. But as this patient has a high AA gradient and there is an increased rate of possible pulmonary emboli or VTE events with isolated distal DVT/suggest we continue to treat with anticoagulation. Currently on Lovenox. If the patient' s overall status improves suggest we switched to Xarelto in the future but continue to monitor at this time. 4. Pulmonary Nodule: CXR does show new left upper lobe nodule verses infiltrative pattern. Follow-up high-resolution noncontrast CT with the patient is clinically stable is warranted. Data Medications: Current Inpatient Medications Medications (Trade) Dose Ordered Sig/Krystal Route Start Time Stop Time Status Last Admin Dose Admin Acetaminophen (Tylenol Tab) 650 mg Q4H PRN PO 01/31/18 13:15 03/02/18 13:14 02/03/18 04:09 650 MG Nitroglycerin (Nitrostat Tab) 0.4 mg UD PRN SL 01/31/18 13:15 03/02/18 13:14 Miscellaneous Information (Consult) 1 ea UD PRN N/A 01/31/18 13:30 03/02/18 13:29 Insulin Aspart (novoLOG ASPART) SLIDING SCALE If C... ACHS SC 01/31/18 16:00 03/02/18 15:59 02/05/18 08:53 13 UNITS Glucose (Glucose 40% Gel) 15-30 GRAMS 15 GRAMS... UD PRN PO 01/31/18 14:15 03/02/18 14:14 Glucose (Glucose Chew Tab) 4-8 Tablets 4 Tabl... UD PRN PO 01/31/18 14:15 03/02/18 14:14 Dextrose (Dextrose 50% 50ML Syringe) 25-50ML OF 50% DW IV FOR... UD PRN IV 01/31/18 14:15 03/02/18 14:14 Glucagon (Glucagon Inj) 1 mg UD PRN SQ 01/31/18 14:15 03/02/18 14:14 Miscellaneous Information (Consult Glycemic Management Pharmacy) 1 ea UD PRN N/A 01/31/18 14:31 03/02/18 14:30 Pantoprazole Sodium (Protonix Tab) 40 mg DAILY PO 02/01/18 09:00 03/03/18 08:59 02/05/18 08:44 40 MG Tamsulosin HCl (Flomax Cap) 0.4 mg HS PO 01/31/18 21:00 03/02/18 20:59 02/04/18 21:11 0.4 MG Tramadol HCl (Ultram Tab) 50 mg Q4H PRN PO 01/31/18 14:30 03/02/18 14:29 Cholecalciferol (Vitamin D Tab) 2,000 inter.unit DAILY PO 02/01/18 09:00 03/03/18 08:59 02/05/18 08:44 2,000 INTER.UNIT Ipratropium [place] (Atrovent 0.02% 0.5MG/2.5ML Neb) 0.5 mg Q6R INH 01/31/18 21:00 03/02/18 20:59 02/05/18 07:12 0.5 MG Levalbuterol (Xopenex 1.25MG/ 0.5ML Neb) 1.25 mg Q6R INH 01/31/18 21:00 03/02/18 20:59 02/05/18 07:12 1.25 MG Ipratropium [place] (Atrovent 0.02% 0.5MG/2.5ML Neb) 0.5 mg Q4H PRN INH 01/31/18 16:00 03/02/18 15:59 Levalbuterol (Xopenex 0.63 Mg/ 3 Ml Neb) 0.63 mg Q4H PRN INH 01/31/18 16:00 03/02/18 15:59 Piperacillin Sod/ Tazobactam Sod 3.375 gm/Sodium Chloride 115 ml @ 28.75 mls/ hr Q8H IV 01/31/18 17:00 02/07/18 16:59 02/05/18 08:51 28.75 MLS/HR Magnesium Hydroxide (Milk Of Magnesia Susp) 30 ml Q12H PRN PO 01/31/18 16:30 03/02/18 16:29 Dornase Rafael (Pulmozyme Inhalation Soln 2.5ml Amp) 2.5 ml BIDR INH 01/31/18 20:00 03/02/18 19:59 02/05/18 07:19 2.5 ML Guaifenesin (Robitussin Sugar Free Syrup) 100 mg Q6H PRN PO 02/01/18 22:15 03/03/18 22:14 02/03/18 04:09 100 MG Warfarin Sodium (Coumadin Tab) 3 mg DAILY@16 PO 02/02/18 16:00 03/04/18 15:59 02/04/18 17:34 3 MG Enteral Nutritional Formula (Boost Glucose Control) 1 can TIDM PO 02/03/18 09:00 03/05/18 07:59 02/05/18 08:00 1 CAN Enoxaparin Sodium (Lovenox Inj) 80 mg Q12H SQ 02/04/18 11:00 03/06/18 10:59 02/04/18 22:44 80 MG Insulin Glargine (Lantus Solostar Pen) 10 units DAILY@0800 SC 02/05/18 08:00 03/07/18 07:59 02/05/18 08:57 10 UNITS Insulin Glargine (Lantus Solostar Pen) 18 units HS SC 02/04/18 16:45 03/06/18 16:44 02/04/18 17:23 18 UNITS Methylprednisolone Sodium Succinate 40 mg/Syringe 0.64 ml @ 1.5 mls/min TID IV 02/04/18 21:00 03/06/18 20:59 02/05/18 08:43 1.5 MLS/MIN Vital Signs: Date Time Temp Pulse Resp B/P (MAP) Pulse Ox O2 Delivery O2 Flow Rate FiO2 02/05/18 08:00 92 BiPAP 50 02/05/18 07:32 36.4 82 20 128/68 (88) 95 BiPAP 02/05/18 07:12 84 91 50 02/05/18 07:12 84 25 91 BiPAP/CPAP 50 02/05/18 05:15 36.3 84 18 131/70 (90) 94 CPAP 02/05/18 04:00 BiPAP 50 02/05/18 01:57 81 22 94 BiPAP/CPAP 50 02/05/18 01:56 81 94 50 02/05/18 00:00 BiPAP 50 02/04/18 22:55 36.3 86 20 115/64 (81) 94 BiPAP 02/04/18 22:14 88 94 50 02/04/18 20:00 BiPAP 15.0 50 02/04/18 19:12 86 22 95 BiPAP/CPAP 50 02/04/18 19:12 86 95 50 02/04/18 19:05 36.5 84 20 105/59 (74) 96 02/04/18 16:00 94 BiPAP 50 02/04/18 15:56 37.3 87 20 111/64 (80) 95 BiPAP 02/04/18 14:16 87 26 99 BiPAP/CPAP 80 02/04/18 14:16 87 99 80 02/04/18 12:00 94 BiPAP 80 02/04/18 11:51 37.4 91 20 130/74 (92) 100 BiPAP Laboratory Results: Last 24 Hours Test 02/04/18 16:14 02/04/18 20:58 02/05/18 07:01 02/05/18 07:04 Bedside Glucose 108 mg/dl 249 mg/dl 254 mg/dl White Blood Count 11.20 K/uL Red Blood Count 3.55 M/uL Hemoglobin 10.3 g/dL Hematocrit 32.9 % Mean Corpuscular Volume 92.7 fL Mean Corpuscular Hemoglobin 29.0 pg Mean Corpuscular Hemoglobin Concent 31.3 g/dl RDW Standard Deviation 55.2 fL RDW Coefficient of Variation 16.0 % Platelet Count 172 K/uL Mean Platelet Volume 9.0 fL Prothrombin Time 19.3 SECONDS Prothromb Time International Ratio 1.9 Sodium Level 139 mmol/L Potassium Level 3.9 mmol/L Chloride Level 105 mmol/L Carbon Dioxide Level 26 mmol/L Anion Gap 8.0 mmol/L Blood Urea Nitrogen 23 mg/dl Creatinine 1.18 mg/dl Est Creatinine Clear Calc Drug Dose 48.8 ml/min Estimated GFR () 64.4 Estimated GFR (Non- 55.5 BUN/Creatinine Ratio 19.6 Random Glucose 255 mg/dl Calcium Level 7.8 mg/dl Test 02/05/18 11:19
[2018-02-05] MEDS: ENOXAPARIN 80 MG/0.8 ML SYR SQ SCH ×2 (13:05→22:37)
--- NOTE | 2018-02-05 14:00 | Pharmacy Progress Note ---
Pharmacy Glycemic Short Note 2 Date of Service Feb 05, 2018. OUTPATIENT ANTIDIABETIC REGIMEN: * Lantus 10 units SQ AM + 20 units SQ HS * Novolog per scale ASSESSMENT: * Pt received 49 units of insulin yesterday * 26 units of basal insulin with Lantus * 23 units of prandial insulin with NovoLog * BSGs became elevated yesterday evening secondary to the addition of solu- medrol 40 mg IV q8h. * I will increase both basal and bolus insulin to account for this change in insulin sensitivity. New CF/CR will be based on what Mr. Burgess has required while on solu-medrol during a past admission. * Insulin dosing will require significant reduction with step down in steroids to avoid hypoglycemia. PLAN FOR INPATIENT GLYCEMIC CONTROL: * Basal insulin - increase * Lantus 20 units SQ this AM, 18 units SQ at HS * Bolus insulin - tighten * NovoLog per scale ACHS or Q6hrs while NPO * Goal Range: Low 110 mg/dL - High 140 mg/dL * Correction Factor: 12 mg/dL/unit * Nutritional / Prandial insulin per carb ratio of 1 unit per 4 grams CHO consumed * Add overnight checks with coverage at 00 and 04 PLAN FOR DISCHARGE: * Significant improvement in A1c with the addition of basal insulin after last admission * A1c 10.4% in Nov 2017 --> now down to 7.4% in January 2018. * Appropriate to continue current outpatient regimen as long as patient is not experiencing hypoglycemia * Pt typically requires less insulin during admission than ordered outpatient dosing, but, this may be due to controlled CHO diet in house.
[2018-02-05] MEDS: WARFARIN SOD 3 MG TAB PO SCH (16:10)
--- NOTE | 2018-02-05 16:32 | Progress Note ---
Medicine Progress Note Date & Time of Visit: Feb 05, 2018 at 10:22. Subjective Pt was seen and examined Lying in bed with mild respiratory distress He continues to have difficulty to breath Bipap helped with the breathing but he would like to take a break from it He seems more awake today Denies any fever, dizziness and chest pain Objective Last 8 Hrs Date Time Temp Pulse Resp B/P (MAP) Pulse Ox O2 Delivery O2 Flow Rate FiO2 02/05/18 16:12 36.3 94 18 97/57 (70) 91 High Flow Oxygen 50 02/05/18 14:16 92 20 94 Nasal Cannula 50.0 60 02/05/18 12:30 36.6 91 20 102/57 (72) 94 BiPAP 02/05/18 12:00 92 BiPAP 50 Physical Exam: General- No acute distress Head- atraumatic Eyes- PERRL, EOMI ENT- oropharynx clear Neck- supple, no JVD Lungs- +Coarse BS more in RUL Heart- regular rhythm Abdomen- normal bowel sounds, soft Extremities- no calf tenderness Neuro- alert, oriented, PERRL, EOMI Skin- warm & dry Laboratory Results: Last 24 Hours Test 02/04/18 20:58 02/05/18 07:01 02/05/18 07:04 02/05/18 11:46 Bedside Glucose 249 mg/dl 254 mg/dl White Blood Count 11.20 K/uL Red Blood Count 3.55 M/uL Hemoglobin 10.3 g/dL Hematocrit 32.9 % Mean Corpuscular Volume 92.7 fL Mean Corpuscular Hemoglobin 29.0 pg Mean Corpuscular Hemoglobin Concent 31.3 g/dl RDW Standard Deviation 55.2 fL RDW Coefficient of Variation 16.0 % Platelet Count 172 K/uL Mean Platelet Volume 9.0 fL Prothrombin Time 19.3 SECONDS Prothromb Time International Ratio 1.9 Sodium Level 139 mmol/L Potassium Level 3.9 mmol/L Chloride Level 105 mmol/L Carbon Dioxide Level 26 mmol/L Anion Gap 8.0 mmol/L Blood Urea Nitrogen 23 mg/dl Creatinine 1.18 mg/dl Est Creatinine Clear Calc Drug Dose 48.8 ml/min Estimated GFR () 64.4 Estimated GFR (Non- 55.5 BUN/Creatinine Ratio 19.6 Random Glucose 255 mg/dl Calcium Level 7.8 mg/dl Arterial Blood pH 7.46 Arterial Blood Partial Pressure CO2 43 mmHg Arterial Blood Partial Pressure O2 76 mm/Hg Arterial Blood HCO3 30 mmol/L Arterial Blood Oxygen Saturation 94.9 % Arterial Blood Base Excess 5.4 mEq/L Arterial Blood Gas Delivery 2.5% Santana Test POS Test 02/05/18 11:54 Bedside Glucose 247 mg/dl Assessment & Plan Pt with Hx hospital admission 12/15/17-01/19/18 for acute respiratory failure, influenza A, MSSA pneumonia, OKSANA and D/C to [facility] presented with increased cough and SOB, & fever 100.4F today ACUTE RESPIRATORY FAILURE Possible secondary to hospital associated pneumonia Hypoxia on admission with oxygen sat in the 75% CXR showed right basilar interstitial thickening persists. Left upper lobe nodular airspace opacity is also noted Sputum and blood cx pending MRSA swab negative Pro BNP WNL Received Vanco and Zosyn IV Vanco D/C and continue IV Zosyn Pulmonology on board Bronchoscopy is contraindicated, but if his breathing worsening, will consider it. Continue respiratory treatment Consider CT chest when pt stable Continue oxygen supplement 02/05 Respiratory slightly improved ABG done suggest no CO2 retention, but elevated AA gradient Repeat CXR done today showed redemonstration of right upper lobe airspace opacity. Slight interval increase in airspace opacity within the remainder of the lungs Continue IV Zosyn Continue oxygen supplement Pulmonary on board Recommended to continue Lovenox therapeutic dose until INR therapeutic continue neb treatment On flutter valve and vibration vest. Continue solumedrol 40mg TID, plan to titrate in am ECHO * The left ventricle is normal in size. * There is mild concentric left ventricular hypertrophy. * Ejection Fraction = 55-60%. * The right ventricle is normal size. * The right ventricular systolic function is normal. * The left atrial size is normal. * Right atrial size is normal. * There is trace tricuspid regurgitation. * There is no evidence of pulmonary hypertension. The PA systolic pressure is less than 36 mmHg. 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 INR: 1.9 continue Coumadin 3mg Hx THROMBOCYTOPENIA Plt 161 Monitor CBC HISTORY CHRONIC DVT RLE On coumadin with INR 1.9 Doppler of LE Nonocclusive thrombus in the right posterior tibial and right peroneal veins, consistent with acute deep venous thrombosis. Continue PERRY hose Continue lovenox therapeutic dose for now BPH Continue Flomax NECK PAIN MRI C-spine showed moderate multilevel cervical spondylosis Continue tramadol as needed pain Stable DVT Prophylaxis D/C heparin subq On Lovenox therapeutic dose until INR subtherapeutic On Coumadin (INR 1.9 today) Disposition Plan to discharge to [facility] once medically stable. Current Inpatient Medications: Current Inpatient Medications Medications (Trade) Dose Ordered Sig/Krystal Route Start Time Stop Time Status Last Admin Dose Admin Acetaminophen (Tylenol Tab) 650 mg Q4H PRN PO 01/31/18 13:15 03/02/18 13:14 02/03/18 04:09 650 MG Nitroglycerin (Nitrostat Tab) 0.4 mg UD PRN SL 01/31/18 13:15 03/02/18 13:14 Miscellaneous Information (Consult) 1 ea UD PRN N/A 01/31/18 13:30 03/02/18 13:29 Insulin Aspart (novoLOG ASPART) SLIDING SCALE If C... ACHS SC 01/31/18 16:00 03/02/18 15:59 02/05/18 13:06 23 UNITS Glucose (Glucose 40% Gel) 15-30 GRAMS 15 GRAMS... UD PRN PO 01/31/18 14:15 03/02/18 14:14 Glucose (Glucose Chew Tab) 4-8 Tablets 4 Tabl... UD PRN PO 01/31/18 14:15 03/02/18 14:14 Dextrose (Dextrose 50% 50ML Syringe) 25-50ML OF 50% DW IV FOR... UD PRN IV 01/31/18 14:15 03/02/18 14:14 Glucagon (Glucagon Inj) 1 mg UD PRN SQ 01/31/18 14:15 03/02/18 14:14 Miscellaneous Information (Consult Glycemic Management Pharmacy) 1 ea UD PRN N/A 01/31/18 14:31 03/02/18 14:30 Pantoprazole Sodium (Protonix Tab) 40 mg DAILY PO 02/01/18 09:00 03/03/18 08:59 02/05/18 08:44 40 MG Tamsulosin HCl (Flomax Cap) 0.4 mg HS PO 01/31/18 21:00 03/02/18 20:59 02/04/18 21:11 0.4 MG Tramadol HCl (Ultram Tab) 50 mg Q4H PRN PO 01/31/18 14:30 03/02/18 14:29 Cholecalciferol (Vitamin D Tab) 2,000 inter.unit DAILY PO 02/01/18 09:00 03/03/18 08:59 02/05/18 08:44 2,000 INTER.UNIT Ipratropium [place] (Atrovent 0.02% 0.5MG/2.5ML Neb) 0.5 mg Q6R INH 01/31/18 21:00 03/02/18 20:59 02/05/18 14:16 0.5 MG Levalbuterol (Xopenex 1.25MG/ 0.5ML Neb) 1.25 mg Q6R INH 01/31/18 21:00 03/02/18 20:59 02/05/18 14:16 1.25 MG Ipratropium [place] (Atrovent 0.02% 0.5MG/2.5ML Neb) 0.5 mg Q4H PRN INH 01/31/18 16:00 03/02/18 15:59 Levalbuterol (Xopenex 0.63 Mg/ 3 Ml Neb) 0.63 mg Q4H PRN INH 01/31/18 16:00 03/02/18 15:59 Piperacillin Sod/ Tazobactam Sod 3.375 gm/Sodium Chloride 115 ml @ 28.75 mls/ hr Q8H IV 01/31/18 17:00 02/07/18 16:59 02/05/18 08:51 28.75 MLS/HR Magnesium Hydroxide (Milk Of Magnesia Susp) 30 ml Q12H PRN PO 01/31/18 16:30 03/02/18 16:29 Dornase Rafael (Pulmozyme Inhalation Soln 2.5ml Amp) 2.5 ml BIDR INH 01/31/18 20:00 03/02/18 19:59 02/05/18 07:19 2.5 ML Guaifenesin (Robitussin Sugar Free Syrup) 100 mg Q6H PRN PO 02/01/18 22:15 03/03/18 22:14 02/03/18 04:09 100 MG Warfarin Sodium (Coumadin Tab) 3 mg DAILY@16 PO 02/02/18 16:00 03/04/18 15:59 02/05/18 16:10 3 MG Enteral Nutritional Formula (Boost Glucose Control) 1 can TIDM PO 02/03/18 09:00 03/05/18 07:59 02/05/18 12:00 1 CAN Enoxaparin Sodium (Lovenox Inj) 80 mg Q12H SQ 02/04/18 11:00 03/06/18 10:59 02/05/18 13:05 80 MG Insulin Glargine (Lantus Solostar Pen) 10 units DAILY@0800 SC 02/05/18 08:00 03/07/18 07:59 Future Hold 02/05/18 08:57 10 UNITS Insulin Glargine (Lantus Solostar Pen) 18 units HS SC 02/04/18 16:45 03/06/18 16:44 02/04/18 17:23 18 UNITS Methylprednisolone Sodium Succinate 40 mg/Syringe 0.64 ml @ 1.5 mls/min TID IV 02/04/18 21:00 03/06/18 20:59 02/05/18 13:07 1.5 MLS/MIN Insulin Aspart (novoLOG ASPART) SLIDING SCALE If C... 0000,0400 SC 02/06/18 00:00 02/06/18 04:01
[2018-02-05] MEDS: TAMSULOSIN HCL 0.4 MG CAP PO SCH (21:36)
[2018-02-06] VITALS (16 sets, daily range): BP systolic 99–138; BP diastolic 57–68; PULSE 74–83; TEMP 36.1–36.7; O2SAT 90–98
[2018-02-06] MEDS: INSULIN ASPART 100 UNITS/ML 3 ML PEN SC SCH ×6 (00:27→21:19)
[2018-02-06] MEDS: PIPERACILL/TAZOBAC IV 3.375 GM in NSS 100ML IV SCH ×3 (01:04→16:35)
[2018-02-06] MEDS: IPRATROPIUM BROMIDE NEB SOLN 0.02% 2.5 ML VIAL INH SCH ×4 (02:01→19:51)
[2018-02-06] MEDS: LEVALBUTEROL 1.25MG/0.5ML NEB INH SCH ×4 (02:01→19:48)
[2018-02-06] MEDS: DORNASE ALFA 2.5 ML AMP INH SCH ×2 (06:59→20:26)
[2018-02-06 07:44] LABS: HEMATOCRIT 34.1 % (42-52); HEMOGLOBIN 10.8 g/dL (14.0-18.0); MEAN CELL VOLUME 92.7 fL (80-100); MEAN CORPUSCULAR HEMOGLOBIN 29.3 pg (25-34); MEAN CORPUSCULAR HGB CONC 31.7 g/dl (32-36); MEAN PLATELET VOLUME 9.2 fL (7.4-10.4); PLATELET COUNT 225 K/uL (130-400); RED CELL DISTRIBUTION WIDTH CV 16.1 % (11.5-14.5); RED CELL DISTRIBUTION WIDTH SD 54.7 fL (36.4-46.3); WHITE BLOOD COUNT 19.66 K/uL (4.8-10.8)
[2018-02-06 07:48] LABS: INR 2.8 (0.9-1.1)
[2018-02-06] MEDS: CHOLECALCIFEROL 1000 INTER.UNIT TAB PO SCH (08:33)
[2018-02-06] MEDS: PANTOprazole SOD 40 MG TAB PO SCH (08:33)
[2018-02-06] MEDS: METHYLPREDNISOLONE IV 40 MG in SYRINGE 0 ML IV SCH ×3 (08:33→21:17)
[2018-02-06] MEDS: BOOST GLUCOSE CONTROL PO SCH ×3 (08:34→16:39)
--- NOTE | 2018-02-06 09:27 | Pulmonology Progress Note ---
Pulmonary Progress Note Date of Service Feb 06, 2018. Attending Dr. Gerard Subjective Patient currently on high flow notes improvement in his respiratory status and baseline fatigue Objective Currently on high flow system FiO2 60% and 50 L/min: Mild tachypnea during our conversation minimal accessory muscle use Vital signs: High flow O2 system 60% at 50 L/min Respiratory: Rhonchi appreciated especially in the right upper lobe Cardiac: S1-S2, tachycardic, systolic murmur best appreciated right upper sternal border Abdomen: Positive bowel sounds soft nontender Extremities: No clubbing cyanosis or edema noted [employer]: Cranial nerves grossly intact, strength 4-5 bilaterally MRSA nasal screen negative Labs ABG 02/05/2018: 7.46/43/76/30 Radiology CXR 02/04/2018: RUL opacification, with increasing opacifications throughout the lungs DVT 02/04/2018: Nonocclusive thrombus in right posterior tibial/peroneal veins Medications 1. Methylprednisolone 40 mg t.i.d. 2. Warfarin 3 mg daily--current INR 2.8 3. Pantoprazole 40 mg daily 4. Atrovent/Xopenex nebulizer q.6 hours/p.r.n. 5. Zosyn 3.375 grams q. 8 hours 6. Dornase rafael 2.5 milliliters b.i.d. nebulized 7. Guaifenesin Assessment & Plan 87-year-old gentleman admitted with increasing fatigue mild shortness of breath and new infiltrative pattern in the right upper lobe via CXR: 1. Pneumonia: Patient is currently being treated with Zosyn and able to be moved to a high flow oxygen support currently at 60%/50 L/min. Will repeat chest x-ray as the patient's WBC count currently 20K. Most of the patient's parameters are showing improvement WBC count could be from demargination secondary to initiation of steroids. 2. Shortness of Breath: Currently stable on high flow oxygen support continue to monitor. Obtain chest x-ray . 3. DVT: DVT study performed 02/04/2018 shows nonocclusive thrombus in the right posterior tibial/bronchial veins which are distal DVTs not proximal. But as this patient has a high AA gradient and there is an increased rate of possible pulmonary emboli or VTE events with isolated distal DVT/suggest we continue to treat with anticoagulation. Currently on Lovenox. If the patient' s overall status improves suggest we switched to Xarelto in the future but continue to monitor at this time. 4. Pulmonary Nodule: CXR does show new left upper lobe nodule verses infiltrative pattern. Follow-up high-resolution noncontrast CT with the patient is clinically stable is warranted. Data Medications: Current Inpatient Medications Medications (Trade) Dose Ordered Sig/Krystal Route Start Time Stop Time Status Last Admin Dose Admin Acetaminophen (Tylenol Tab) 650 mg Q4H PRN PO 01/31/18 13:15 03/02/18 13:14 02/03/18 04:09 650 MG Nitroglycerin (Nitrostat Tab) 0.4 mg UD PRN SL 01/31/18 13:15 03/02/18 13:14 Miscellaneous Information (Consult) 1 ea UD PRN N/A 01/31/18 13:30 03/02/18 13:29 Insulin Aspart (novoLOG ASPART) SLIDING SCALE If C... ACHS SC 01/31/18 16:00 03/02/18 15:59 02/06/18 08:35 23 UNITS Glucose (Glucose 40% Gel) 15-30 GRAMS 15 GRAMS... UD PRN PO 01/31/18 14:15 03/02/18 14:14 Glucose (Glucose Chew Tab) 4-8 Tablets 4 Tabl... UD PRN PO 01/31/18 14:15 03/02/18 14:14 Dextrose (Dextrose 50% 50ML Syringe) 25-50ML OF 50% DW IV FOR... UD PRN IV 01/31/18 14:15 03/02/18 14:14 Glucagon (Glucagon Inj) 1 mg UD PRN SQ 01/31/18 14:15 03/02/18 14:14 Miscellaneous Information (Consult Glycemic Management Pharmacy) 1 ea UD PRN N/A 01/31/18 14:31 03/02/18 14:30 Pantoprazole Sodium (Protonix Tab) 40 mg DAILY PO 02/01/18 09:00 03/03/18 08:59 02/06/18 08:33 40 MG Tamsulosin HCl (Flomax Cap) 0.4 mg HS PO 01/31/18 21:00 03/02/18 20:59 02/05/18 21:36 0.4 MG Tramadol HCl (Ultram Tab) 50 mg Q4H PRN PO 01/31/18 14:30 03/02/18 14:29 Cholecalciferol (Vitamin D Tab) 2,000 inter.unit DAILY PO 02/01/18 09:00 03/03/18 08:59 02/06/18 08:33 2,000 INTER.UNIT Ipratropium [place] (Atrovent 0.02% 0.5MG/2.5ML Neb) 0.5 mg Q6R INH 01/31/18 21:00 03/02/18 20:59 02/06/18 06:58 0.5 MG Levalbuterol (Xopenex 1.25MG/ 0.5ML Neb) 1.25 mg Q6R INH 01/31/18 21:00 03/02/18 20:59 02/06/18 06:58 1.25 MG Ipratropium [place] (Atrovent 0.02% 0.5MG/2.5ML Neb) 0.5 mg Q4H PRN INH 01/31/18 16:00 03/02/18 15:59 Levalbuterol (Xopenex 0.63 Mg/ 3 Ml Neb) 0.63 mg Q4H PRN INH 01/31/18 16:00 03/02/18 15:59 Piperacillin Sod/ Tazobactam Sod 3.375 gm/Sodium Chloride 115 ml @ 28.75 mls/ hr Q8H IV 01/31/18 17:00 02/07/18 16:59 02/06/18 08:37 28.75 MLS/HR Magnesium Hydroxide (Milk Of Magnesia Susp) 30 ml Q12H PRN PO 01/31/18 16:30 03/02/18 16:29 Dornase [place] (Pulmozyme Inhalation Soln 2.5ml Amp) 2.5 ml BIDR INH 01/31/18 20:00 03/02/18 19:59 02/06/18 06:59 2.5 ML Guaifenesin (Robitussin Sugar Free Syrup) 100 mg Q6H PRN PO 02/01/18 22:15 03/03/18 22:14 02/03/18 04:09 100 MG Warfarin Sodium (Coumadin Tab) 3 mg DAILY@16 PO 02/02/18 16:00 03/04/18 15:59 02/05/18 16:10 3 MG Enteral Nutritional Formula (Boost Glucose Control) 1 can TIDM PO 02/03/18 09:00 03/05/18 07:59 02/06/18 08:34 1 CAN Methylprednisolone Sodium Succinate 40 mg/Syringe 0.64 ml @ 1.5 mls/min TID IV 02/04/18 21:00 03/06/18 20:59 02/06/18 08:33 1.5 MLS/MIN Insulin Glargine (Lantus Solostar Pen) SEE PROTOCOL TEXT BID SC 02/06/18 09:00 03/08/18 08:59 Vital Signs: Date Time Temp Pulse Resp B/P (MAP) Pulse Ox O2 Delivery O2 Flow Rate FiO2 02/06/18 07:23 36.4 80 20 108/57 (74) 91 BiPAP 02/06/18 06:58 77 92 50 02/06/18 06:58 77 27 92 BiPAP/CPAP 50 02/06/18 04:25 36.1 77 24 114/68 (83) 95 BiPAP 50 77 02/06/18 04:00 BiPAP 50 02/06/18 02:02 77 22 94 BiPAP/CPAP 50 02/06/18 02:00 79 94 50 02/06/18 00:12 36.4 83 20 117/61 (79) 93 BiPAP 02/06/18 00:00 BiPAP 50 02/05/18 22:53 88 92 50 02/05/18 20:00 36.6 87 20 105/54 (71) 94 High Flow Oxygen 50 02/05/18 20:00 High Flow Oxygen 50.0 50 02/05/18 19:06 88 18 91 Nasal Cannula 50.0 50 02/05/18 16:12 36.3 94 18 97/57 (70) 91 High Flow Oxygen 50 02/05/18 16:00 High Flow Oxygen 50.0 50 02/05/18 14:16 92 20 94 Nasal Cannula 50.0 60 02/05/18 12:30 36.6 91 20 102/57 (72) 94 BiPAP 02/05/18 12:00 92 BiPAP 50 Laboratory Results: Last 24 Hours Test 02/05/18 11:46 02/05/18 11:54 02/05/18 16:43 02/05/18 20:49 Arterial Blood pH 7.46 Arterial Blood Partial Pressure CO2 43 mmHg Arterial Blood Partial Pressure O2 76 mm/Hg Arterial Blood HCO3 30 mmol/L Arterial Blood Oxygen Saturation 94.9 % Arterial Blood Base Excess 5.4 mEq/L Arterial Blood Gas Delivery 2.5% Santana Test POS Bedside Glucose 247 mg/dl 153 mg/dl 89 mg/dl Test 02/05/18 23:58 02/06/18 04:08 02/06/18 07:01 02/06/18 07:05 Bedside Glucose 174 mg/dl 185 mg/dl 167 mg/dl White Blood Count 19.66 K/uL Red Blood Count 3.68 M/uL Hemoglobin 10.8 g/dL Hematocrit 34.1 % Mean Corpuscular Volume 92.7 fL Mean Corpuscular Hemoglobin 29.3 pg Mean Corpuscular Hemoglobin Concent 31.7 g/dl RDW Standard Deviation 54.7 fL RDW Coefficient of Variation 16.1 % Platelet Count 225 K/uL Mean Platelet Volume 9.2 fL Prothrombin Time 28.7 SECONDS Prothromb Time International Ratio 2.8
--- NOTE | 2018-02-06 10:25 | DIAGNOSTIC IMAGING REPORT ---
CHEST ONE VIEW PORTABLE CLINICAL HISTORY: 87 years-old Male presenting with Leukocytosis with associated hypoxemia. TECHNIQUE: Portable upright AP view of the chest was obtained. COMPARISON: 02/04/2018. FINDINGS: Cardiomediastinal silhouette unchanged. Upper retraction of the right hilum and rightward deviation of the trachea, unchanged. Persistent dense opacity in the right upper lung and both lung bases, left greater than right. Opacities may be superimposed on reticulation. Small bilateral pleural effusions, which appears loculated on the right. Degenerative changes of the thoracic spine. Numerous external leads overlie the right upper quadrant degrading evaluation of the upper abdomen. IMPRESSION: 1. No significant change in the dense consolidation of the right upper lung and lung bases, left greater than right. This may represent multifocal infection superimposed on chronic lung disease. 2. Small bilateral pleural effusions, loculated on the right. Electronically signed by: Vin Christensen M.D. 02/06/2018 10:23 AM Dictated Date/Time: 02/06/2018 10:21 AM
[2018-02-06] MEDS: INSULIN GLARGINE SOLOSTAR 100 UNITS/ML 3 ML PEN SC SCH ×2 (10:36→21:20)
[2018-02-06] MEDS: WARFARIN SOD 3 MG TAB PO SCH (16:39)
--- NOTE | 2018-02-06 18:52 | Progress Note ---
Medicine Progress Note Date & Time of Visit: Feb 06, 2018 at 11:44. Subjective Pt was seen and examined Lying in bed with no distress with family at bedside Pt said that his breathing slightly improves He is more awake and talking today He is on high flow oxygen Denies any chest pain, palpitation, dizziness and fever Objective Last 8 Hrs Date Time Temp Pulse Resp B/P (MAP) Pulse Ox O2 Delivery O2 Flow Rate FiO2 02/06/18 16:00 92 High Flow Oxygen 40.0 50 Nasal Cannula 02/06/18 15:30 36.5 74 18 120/61 (80) 95 High Flow Oxygen 50 02/06/18 14:25 77 20 94 Nasal Cannula 40.0 50 02/06/18 12:19 36.2 77 18 99/65 (76) 98 High Flow Oxygen 50 02/06/18 12:00 92 High Flow Oxygen 40.0 50 Physical Exam: General- No acute distress Head- atraumatic Eyes- PERRL, EOMI ENT- oropharynx clear Neck- supple, no JVD Lungs- +Coarse BS more in RUL Heart- regular rhythm Abdomen- normal bowel sounds, soft Extremities- no calf tenderness Neuro- alert, oriented, PERRL, EOMI Skin- warm & dry Laboratory Results: Last 24 Hours Test 02/05/18 20:49 02/05/18 23:58 02/06/18 04:08 02/06/18 07:01 Bedside Glucose 89 mg/dl 174 mg/dl 185 mg/dl 167 mg/dl Test 02/06/18 07:05 02/06/18 16:42 White Blood Count 19.66 K/uL Red Blood Count 3.68 M/uL Hemoglobin 10.8 g/dL Hematocrit 34.1 % Mean Corpuscular Volume 92.7 fL Mean Corpuscular Hemoglobin 29.3 pg Mean Corpuscular Hemoglobin Concent 31.7 g/dl RDW Standard Deviation 54.7 fL RDW Coefficient of Variation 16.1 % Platelet Count 225 K/uL Mean Platelet Volume 9.2 fL Prothrombin Time 28.7 SECONDS Prothromb Time International Ratio 2.8 Bedside Glucose 168 mg/dl Assessment & Plan Pt with Hx hospital admission 12/15/17-01/19/18 for acute respiratory failure, influenza A, MSSA pneumonia, OKSANA and D/C to [facility] presented with increased cough and SOB, & fever 100.4F today ACUTE RESPIRATORY FAILURE Possible secondary to hospital associated pneumonia Hypoxia on admission with oxygen sat in the 75% CXR showed right basilar interstitial thickening persists. Left upper lobe nodular airspace opacity is also noted Sputum and blood cx pending MRSA swab negative Pro BNP WNL Received Vanco and Zosyn IV Vanco D/C and continue IV Zosyn Pulmonology on board Bronchoscopy is contraindicated, but if his breathing worsening, will consider it. Continue respiratory treatment Consider CT chest when pt stable Continue oxygen supplement 02/05 Respiratory slightly improved ABG done suggest no CO2 retention, but elevated AA gradient Repeat CXR done today showed redemonstration of right upper lobe airspace opacity. Slight interval increase in airspace opacity within the remainder of the lungs Continue IV Zosyn Continue oxygen supplement Pulmonary on board Recommended to continue Lovenox therapeutic dose until INR therapeutic continue neb treatment On flutter valve and vibration vest. Continue solumedrol 40mg TID, plan to titrate in am 02/06 Clinically improved slightly On high flow oxygen and saturated well Continue titrate oxygen to keep oxygen sat above 92% Continue solumedrol 40mg TID CXR showed no significant change in the dense consolidation of the right upper lung and lung bases, left greater than right. Continue Zosyn IV ECHO * The left ventricle is normal in size. * There is mild concentric left ventricular hypertrophy. * Ejection Fraction = 55-60%. * The right ventricle is normal size. * The right ventricular systolic function is normal. * The left atrial size is normal. * Right atrial size is normal. * There is trace tricuspid regurgitation. * There is no evidence of pulmonary hypertension. The PA systolic pressure is less than 36 mmHg. 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 INR: 2.8 continue Coumadin 3mg Hx THROMBOCYTOPENIA Plt 161 Monitor CBC HISTORY CHRONIC DVT RLE On coumadin with INR 2.8 Doppler of LE Nonocclusive thrombus in the right posterior tibial and right peroneal veins, consistent with acute deep venous thrombosis. Continue PERRY hose d/c lovenox therapeutic dose Continue monitor INR BPH Continue Flomax NECK PAIN MRI C-spine showed moderate multilevel cervical spondylosis Continue tramadol as needed pain Stable DVT Prophylaxis D/C heparin subq On Lovenox therapeutic dose until INR subtherapeutic On Coumadin (INR 2.8 today) Disposition Plan to discharge to [facility] once medically stable. Current Inpatient Medications: Current Inpatient Medications Medications (Trade) Dose Ordered Sig/Krystal Route Start Time Stop Time Status Last Admin Dose Admin Acetaminophen (Tylenol Tab) 650 mg Q4H PRN PO 01/31/18 13:15 03/02/18 13:14 02/03/18 04:09 650 MG Nitroglycerin (Nitrostat Tab) 0.4 mg UD PRN SL 01/31/18 13:15 03/02/18 13:14 Miscellaneous Information (Consult) 1 ea UD PRN N/A 01/31/18 13:30 03/02/18 13:29 Insulin Aspart (novoLOG ASPART) SLIDING SCALE If C... ACHS SC 01/31/18 16:00 03/02/18 15:59 02/06/18 17:30 16 UNITS Glucose (Glucose 40% Gel) 15-30 GRAMS 15 GRAMS... UD PRN PO 01/31/18 14:15 03/02/18 14:14 Glucose (Glucose Chew Tab) 4-8 Tablets 4 Tabl... UD PRN PO 01/31/18 14:15 03/02/18 14:14 Dextrose (Dextrose 50% 50ML Syringe) 25-50ML OF 50% DW IV FOR... UD PRN IV 01/31/18 14:15 03/02/18 14:14 Glucagon (Glucagon Inj) 1 mg UD PRN SQ 01/31/18 14:15 03/02/18 14:14 Miscellaneous Information (Consult Glycemic Management Pharmacy) 1 ea UD PRN N/A 01/31/18 14:31 03/02/18 14:30 Pantoprazole Sodium (Protonix Tab) 40 mg DAILY PO 02/01/18 09:00 03/03/18 08:59 02/06/18 08:33 40 MG Tamsulosin HCl (Flomax Cap) 0.4 mg HS PO 01/31/18 21:00 03/02/18 20:59 4/14/18 21:36 0.4 MG Tramadol HCl (Ultram Tab) 50 mg Q4H PRN PO 01/31/18 14:30 03/02/18 14:29 Cholecalciferol (Vitamin D Tab) 2,000 inter.unit DAILY PO 02/01/18 09:00 03/03/18 08:59 02/06/18 08:33 2,000 INTER.UNIT Ipratropium [place] (Atrovent 0.02% 0.5MG/2.5ML Neb) 0.5 mg Q6R INH 01/31/18 21:00 03/02/18 20:59 02/06/18 14:24 0.5 MG Levalbuterol (Xopenex 1.25MG/ 0.5ML Neb) 1.25 mg Q6R INH 01/31/18 21:00 03/02/18 20:59 02/06/18 14:24 1.25 MG Ipratropium [place] (Atrovent 0.02% 0.5MG/2.5ML Neb) 0.5 mg Q4H PRN INH 01/31/18 16:00 03/02/18 15:59 Levalbuterol (Xopenex 0.63 Mg/ 3 Ml Neb) 0.63 mg Q4H PRN INH 01/31/18 16:00 03/02/18 15:59 Piperacillin Sod/ Tazobactam Sod 3.375 gm/Sodium Chloride 115 ml @ 28.75 mls/ hr Q8H IV 01/31/18 17:00 02/07/18 16:59 02/06/18 16:35 28.75 MLS/HR Magnesium Hydroxide (Milk Of Magnesia Susp) 30 ml Q12H PRN PO 01/31/18 16:30 03/02/18 16:29 Dornase Rafael (Pulmozyme Inhalation Soln 2.5ml Amp) 2.5 ml BIDR INH 01/31/18 20:00 03/02/18 19:59 02/06/18 06:59 2.5 ML Guaifenesin (Robitussin Sugar Free Syrup) 100 mg Q6H PRN PO 02/01/18 22:15 03/03/18 22:14 02/03/18 04:09 100 MG Warfarin Sodium (Coumadin Tab) 3 mg DAILY@16 PO 02/02/18 16:00 03/04/18 15:59 02/06/18 16:39 3 MG Enteral Nutritional Formula (Boost Glucose Control) 1 can TIDM PO 02/03/18 09:00 03/05/18 07:59 02/06/18 16:39 1 CAN Methylprednisolone Sodium Succinate 40 mg/Syringe 0.64 ml @ 1.5 mls/min TID IV 02/04/18 21:00 03/06/18 20:59 02/06/18 14:16 1.5 MLS/MIN Insulin Glargine (Lantus Solostar Pen) SEE PROTOCOL TEXT BID SC 02/06/18 09:00 03/08/18 08:59 02/06/18 10:36 20 UNITS
[2018-02-06] MEDS: TAMSULOSIN HCL 0.4 MG CAP PO SCH (21:20)
[2018-02-07] VITALS (14 sets, daily range): BP systolic 112–139; BP diastolic 59–69; PULSE 65–83; TEMP 36.4–36.7; O2SAT 92–99
[2018-02-07] MEDS: PIPERACILL/TAZOBAC IV 3.375 GM in NSS 100ML IV SCH ×3 (02:02→17:18)
[2018-02-07] MEDS: IPRATROPIUM BROMIDE NEB SOLN 0.02% 2.5 ML VIAL INH SCH ×4 (02:18→19:26)
[2018-02-07] MEDS: LEVALBUTEROL 1.25MG/0.5ML NEB INH SCH ×4 (02:19→19:26)
[2018-02-07] MEDS: DORNASE ALFA 2.5 ML AMP INH SCH ×2 (07:00→19:26)
[2018-02-07 07:59] LABS: HEMATOCRIT 33.2 % (42-52); HEMOGLOBIN 10.5 g/dL (14.0-18.0); MEAN CELL VOLUME 92.2 fL (80-100); MEAN CORPUSCULAR HEMOGLOBIN 29.2 pg (25-34); MEAN CORPUSCULAR HGB CONC 31.6 g/dl (32-36); MEAN PLATELET VOLUME 8.9 fL (7.4-10.4); PLATELET COUNT 233 K/uL (130-400); RED CELL DISTRIBUTION WIDTH CV 16.4 % (11.5-14.5); RED CELL DISTRIBUTION WIDTH SD 55.9 fL (36.4-46.3); WHITE BLOOD COUNT 15.79 K/uL (4.8-10.8)
[2018-02-07 08:05] LABS: INR 3.4 (0.9-1.1)
[2018-02-07 08:31] LABS: CREATININE 1.29 mg/dl (0.60-1.40)
[2018-02-07] MEDS: BOOST GLUCOSE CONTROL PO SCH ×3 (09:13→17:12)
[2018-02-07] MEDS: METHYLPREDNISOLONE IV 40 MG in SYRINGE 0 ML IV SCH ×3 (09:14→20:48)
[2018-02-07] MEDS: PANTOprazole SOD 40 MG TAB PO SCH (09:15)
[2018-02-07] MEDS: CHOLECALCIFEROL 1000 INTER.UNIT TAB PO SCH (09:15)
[2018-02-07] MEDS: INSULIN ASPART 100 UNITS/ML 3 ML PEN SC SCH ×4 (09:19→20:51)
[2018-02-07] MEDS: INSULIN GLARGINE SOLOSTAR 100 UNITS/ML 3 ML PEN SC SCH ×2 (09:20→20:51)
--- NOTE | 2018-02-07 14:20 | Pulmonology Progress Note ---
Pulmonary Progress Note Date of Service Feb 07, 2018. Attending Dr. Montelongo Subjective The patient was sleeping comfortably, he was maintained on high flow nasal cannula, his O2 saturation was 97%. Was not in respiratory distress, not tachypneic. Objective Currently on high flow system FiO2 60% and 50 L/min: Mild tachypnea during our conversation minimal accessory muscle use Vital signs: High flow O2 system 60% at 50 L/min Respiratory: Rhonchi appreciated especially in the right upper lobe Cardiac: S1-S2, tachycardic, systolic murmur best appreciated right upper sternal border Abdomen: Positive bowel sounds soft nontender Extremities: No clubbing cyanosis or edema noted GEOSPATIAL IMAGE ANALYST: Cranial nerves grossly intact, strength 4-5 bilaterally MRSA nasal screen negative Labs ABG 02/05/2018: 7.46/43/76/30 Radiology CXR 02/04/2018: RUL opacification, with increasing opacifications throughout the lungs DVT 02/04/2018: Nonocclusive thrombus in right posterior tibial/peroneal veins Medications 1. Methylprednisolone 40 mg t.i.d. 2. Warfarin 3 mg daily--current INR 2.8 3. Pantoprazole 40 mg daily 4. Atrovent/Xopenex nebulizer q.6 hours/p.r.n. 5. Zosyn 3.375 grams q. 8 hours 6. Dornase rafael 2.5 milliliters b.i.d. nebulized 7. Guaifenesin Assessment & Plan 1. Right upper lobe pneumonia. Improving. 2. Acute respiratory failure, improving hypoxia. 3. DVT right upper extremity. 4. Left upper lobe pulmonary nodule. Plan: 1. Change high flow oxygen to nasal cannula 6 L/min. 2. Continue with Zosyn. 3. No evidence of MRSA. 4. Continue with anticoagulation. Monitor INR as it has been elevated while on Zosyn. 5. Agree with the rest of her management. Thank you, will follow. Data Medications: Current Inpatient Medications Medications (Trade) Dose Ordered Sig/Krystal Route Start Time Stop Time Status Last Admin Dose Admin Acetaminophen (Tylenol Tab) 650 mg Q4H PRN PO 01/31/18 13:15 03/02/18 13:14 02/03/18 04:09 650 MG Nitroglycerin (Nitrostat Tab) 0.4 mg UD PRN SL 01/31/18 13:15 03/02/18 13:14 Miscellaneous Information (Consult) 1 ea UD PRN N/A 01/31/18 13:30 03/02/18 13:29 Insulin Aspart (novoLOG ASPART) SLIDING SCALE If C... ACHS SC 01/31/18 16:00 03/02/18 15:59 02/07/18 12:14 21 UNITS Glucose (Glucose 40% Gel) 15-30 GRAMS 15 GRAMS... UD PRN PO 01/31/18 14:15 03/02/18 14:14 Glucose (Glucose Chew Tab) 4-8 Tablets 4 Tabl... UD PRN PO 01/31/18 14:15 03/02/18 14:14 Dextrose (Dextrose 50% 50ML Syringe) 25-50ML OF 50% DW IV FOR... UD PRN IV 01/31/18 14:15 03/02/18 14:14 Glucagon (Glucagon Inj) 1 mg UD PRN SQ 01/31/18 14:15 03/02/18 14:14 Miscellaneous Information (Consult Glycemic Management Pharmacy) 1 ea UD PRN N/A 01/31/18 14:31 03/02/18 14:30 Pantoprazole Sodium (Protonix Tab) 40 mg DAILY PO 02/01/18 09:00 03/03/18 08:59 02/07/18 09:15 40 MG Tamsulosin HCl (Flomax Cap) 0.4 mg HS PO 01/31/18 21:00 03/02/18 20:59 02/06/18 21:20 0.4 MG Tramadol HCl (Ultram Tab) 50 mg Q4H PRN PO 01/31/18 14:30 03/02/18 14:29 Cholecalciferol (Vitamin D Tab) 2,000 inter.unit DAILY PO 02/01/18 09:00 03/03/18 08:59 02/07/18 09:15 2,000 INTER.UNIT Ipratropium [place] (Atrovent 0.02% 0.5MG/2.5ML Neb) 0.5 mg Q6R INH 01/31/18 21:00 03/02/18 20:59 02/07/18 14:04 0.5 MG Levalbuterol (Xopenex 1.25MG/ 0.5ML Neb) 1.25 mg Q6R INH 01/31/18 21:00 03/02/18 20:59 02/07/18 14:04 1.25 MG Ipratropium [place] (Atrovent 0.02% 0.5MG/2.5ML Neb) 0.5 mg Q4H PRN INH 01/31/18 16:00 03/02/18 15:59 Levalbuterol (Xopenex 0.63 Mg/ 3 Ml Neb) 0.63 mg Q4H PRN INH 01/31/18 16:00 03/02/18 15:59 Piperacillin Sod/ Tazobactam Sod 3.375 gm/Sodium Chloride 115 ml @ 28.75 mls/ hr Q8H IV 01/31/18 17:00 02/10/18 23:59 02/07/18 09:14 28.75 MLS/HR Magnesium Hydroxide (Milk Of Magnesia Susp) 30 ml Q12H PRN PO 01/31/18 16:30 03/02/18 16:29 Dornase Rafael (Pulmozyme Inhalation Soln 2.5ml Amp) 2.5 ml BIDR INH 01/31/18 20:00 03/02/18 19:59 02/07/18 07:00 2.5 ML Guaifenesin (Robitussin Sugar Free Syrup) 100 mg Q6H PRN PO 02/01/18 22:15 03/03/18 22:14 02/03/18 04:09 100 MG Enteral Nutritional Formula (Boost Glucose Control) 1 can TIDM PO 02/03/18 09:00 03/05/18 07:59 02/07/18 12:10 1 CAN Methylprednisolone Sodium Succinate 40 mg/Syringe 0.64 ml @ 1.5 mls/min TID IV 02/04/18 21:00 03/06/18 20:59 02/07/18 14:07 1.5 MLS/MIN Insulin Glargine (Lantus Solostar Pen) SEE PROTOCOL TEXT BID SC 02/06/18 09:00 03/08/18 08:59 02/07/18 09:20 20 UNITS Warfarin Sodium (Coumadin Tab) 2 mg DAILY@16 PO 02/07/18 16:00 03/04/18 15:59 Vital Signs: Date Time Temp Pulse Resp B/P (MAP) Pulse Ox O2 Delivery O2 Flow Rate FiO2 02/07/18 14:04 65 20 96 Nasal Cannula 50.0 65 02/07/18 12:01 95 High Flow Oxygen 40.0 60 02/07/18 11:51 36.5 70 18 112/68 (83) 99 BiPAP 02/07/18 08:09 36.7 70 19 121/69 (86) 95 BiPAP 02/07/18 08:00 95 High Flow Oxygen 40.0 60 02/07/18 07:00 68 22 98 Nasal Cannula 50.0 60 02/07/18 05:04 36.4 80 20 129/59 (82) 92 BiPAP 02/07/18 02:20 74 94 50 02/07/18 02:19 74 25 94 BiPAP/CPAP 40.0 50 02/07/18 01:00 36.7 73 20 139/61 (87) 95 BiPAP 02/07/18 00:10 Room Air 02/06/18 23:38 82 91 50 02/06/18 20:00 94 High Flow Oxygen 40.0 50 Nasal Cannula 02/06/18 19:54 36.7 80 20 138/65 (89) 94 High Flow Oxygen 40.0 50 02/06/18 19:50 77 20 92 Nasal Cannula 40.0 50 02/06/18 16:00 92 High Flow Oxygen 40.0 50 Nasal Cannula 02/06/18 15:30 36.5 74 18 120/61 (80) 95 High Flow Oxygen 40.0 50 02/06/18 14:25 77 20 94 Nasal Cannula 40.0 50 Laboratory Results: Last 24 Hours Test 02/06/18 16:42 02/06/18 20:16 02/07/18 07:37 02/07/18 07:39 Bedside Glucose 168 mg/dl 165 mg/dl 142 mg/dl White Blood Count 15.79 K/uL Red Blood Count 3.60 M/uL Hemoglobin 10.5 g/dL Hematocrit 33.2 % Mean Corpuscular Volume 92.2 fL Mean Corpuscular Hemoglobin 29.2 pg Mean Corpuscular Hemoglobin Concent 31.6 g/dl RDW Standard Deviation 55.9 fL RDW Coefficient of Variation 16.4 % Platelet Count 233 K/uL Mean Platelet Volume 8.9 fL Prothrombin Time 34.4 SECONDS Prothromb Time International Ratio 3.4 Creatinine 1.29 mg/dl Est Creatinine Clear Calc Drug Dose 44.9 ml/min Estimated GFR () 57.8 Estimated GFR (Non- 49.9 Test 02/07/18 11:39 Bedside Glucose 263 mg/dl
[2018-02-07] MEDS: WARFARIN SOD 2 MG TAB PO SCH (17:10)
--- NOTE | 2018-02-07 20:07 | Progress Note ---
Medicine Progress Note Date & Time of Visit: Feb 07, 2018 at 11:00. Subjective Pt was seen and examined Lying in bed sleeping comfortable When I called his name, he woke up Respiratory distress, continue requires high flow oxygen He said that he feels slightly better today denies any palpitation, chest pain and fever Objective Last 8 Hrs Date Time Temp Pulse Resp B/P (MAP) Pulse Ox O2 Delivery O2 Flow Rate FiO2 02/07/18 19:57 36.4 83 20 139/69 (92) 93 02/07/18 19:28 74 20 93 Nasal Cannula 50.0 60 02/07/18 16:00 94 High Flow Oxygen 50.0 60 02/07/18 15:48 36.5 70 20 138/68 (91) 95 02/07/18 14:04 65 20 96 Nasal Cannula 50.0 65 02/07/18 12:01 95 High Flow Oxygen 40.0 60 Physical Exam: General- No acute distress Head- atraumatic Eyes- PERRL, EOMI ENT- oropharynx clear Neck- supple, no JVD Lungs- +Coarse/wheezing BS more in RUL Heart- regular rhythm Abdomen- normal bowel sounds, soft Extremities- no calf tenderness Neuro- alert, oriented, PERRL, EOMI Skin- warm & dry Laboratory Results: Last 24 Hours Test 02/06/18 20:16 02/07/18 07:37 02/07/18 07:39 02/07/18 11:39 Bedside Glucose 165 mg/dl 142 mg/dl 263 mg/dl White Blood Count 15.79 K/uL Red Blood Count 3.60 M/uL Hemoglobin 10.5 g/dL Hematocrit 33.2 % Mean Corpuscular Volume 92.2 fL Mean Corpuscular Hemoglobin 29.2 pg Mean Corpuscular Hemoglobin Concent 31.6 g/dl RDW Standard Deviation 55.9 fL RDW Coefficient of Variation 16.4 % Platelet Count 233 K/uL Mean Platelet Volume 8.9 fL Prothrombin Time 34.4 SECONDS Prothromb Time International Ratio 3.4 Creatinine 1.29 mg/dl Est Creatinine Clear Calc Drug Dose 44.9 ml/min Estimated GFR () 57.8 Estimated GFR (Non- 49.9 Test 02/07/18 16:32 Bedside Glucose 150 mg/dl Assessment & Plan Pt with Hx hospital admission 12/15/17-01/19/18 for acute respiratory failure, influenza A, MSSA pneumonia, [place]SA[place] and D/C to [facility] presented with increased cough and SOB, & fever 100.4F today ACUTE RESPIRATORY FAILURE Possible secondary to hospital associated pneumonia Hypoxia on admission with oxygen sat in the 75% CXR showed right basilar interstitial thickening persists. Left upper lobe nodular airspace opacity is also noted Sputum and blood cx pending MRSA swab negative Pro BNP WNL Received Vanco and Zosyn IV Vanco D/C and continue IV Zosyn Pulmonology on board Bronchoscopy is contraindicated, but if his breathing worsening, will consider it. Continue respiratory treatment Consider CT chest when pt stable Continue oxygen supplement 02/05 Respiratory slightly improved ABG done suggest no CO2 retention, but elevated AA gradient Repeat CXR done today showed redemonstration of right upper lobe airspace opacity. Slight interval increase in airspace opacity within the remainder of the lungs Continue IV Zosyn Continue oxygen supplement Pulmonary on board Recommended to continue Lovenox therapeutic dose until INR therapeutic continue neb treatment On flutter valve and vibration vest. Continue solumedrol 40mg TID, plan to titrate in am 02/07 Clinically improved slightly On high flow oxygen and saturated well Continue titrate oxygen to keep oxygen sat above 92% Continue solumedrol 40mg TID CXR showed no significant change in the dense consolidation of the right upper lung and lung bases, left greater than right. Continue Zosyn IV CT chest pending ECHO * The left ventricle is normal in size. * There is mild concentric left ventricular hypertrophy. * Ejection Fraction = 55-60%. * The right ventricle is normal size. * The right ventricular systolic function is normal. * The left atrial size is normal. * Right atrial size is normal. * There is trace tricuspid regurgitation. * There is no evidence of pulmonary hypertension. The PA systolic pressure is less than 36 mmHg. 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 INR: 3.4 Coumadin decreased to 2 mg Monitor PT/INR Hx THROMBOCYTOPENIA Plt 161 Monitor CBC HISTORY CHRONIC DVT RLE On coumadin with INR 3.4 Doppler of LE Nonocclusive thrombus in the right posterior tibial and right peroneal veins, consistent with acute deep venous thrombosis. Continue PERRY hose d/c lovenox therapeutic dose Continue monitor INR BPH Continue Flomax NECK PAIN MRI C-spine showed moderate multilevel cervical spondylosis Continue tramadol as needed pain Stable DVT Prophylaxis D/C heparin subq On Lovenox therapeutic dose until INR subtherapeutic On Coumadin (INR 3.4 today) Disposition Plan to discharge to [facility] once medically stable. Current Inpatient Medications: Current Inpatient Medications Medications (Trade) Dose Ordered Sig/Krystal Route Start Time Stop Time Status Last Admin Dose Admin Acetaminophen (Tylenol Tab) 650 mg Q4H PRN PO 01/31/18 13:15 03/02/18 13:14 02/03/18 04:09 650 MG Nitroglycerin (Nitrostat Tab) 0.4 mg UD PRN SL 01/31/18 13:15 03/02/18 13:14 Miscellaneous Information (Consult) 1 ea UD PRN N/A 01/31/18 13:30 03/02/18 13:29 Insulin Aspart (novoLOG ASPART) SLIDING SCALE If C... ACHS SC 01/31/18 16:00 03/02/18 15:59 02/07/18 17:17 17 UNITS Glucose (Glucose 40% Gel) 15-30 GRAMS 15 GRAMS... UD PRN PO 01/31/18 14:15 03/02/18 14:14 Glucose (Glucose Chew Tab) 4-8 Tablets 4 Tabl... UD PRN PO 01/31/18 14:15 03/02/18 14:14 Dextrose (Dextrose 50% 50ML Syringe) 25-50ML OF 50% DW IV FOR... UD PRN IV 01/31/18 14:15 03/02/18 14:14 Glucagon (Glucagon Inj) 1 mg UD PRN SQ 01/31/18 14:15 03/02/18 14:14 Miscellaneous Information (Consult Glycemic Management Pharmacy) 1 ea UD PRN N/A 01/31/18 14:31 03/02/18 14:30 Pantoprazole Sodium (Protonix Tab) 40 mg DAILY PO 02/01/18 09:00 03/03/18 08:59 02/07/18 09:15 40 MG Tamsulosin HCl (Flomax Cap) 0.4 mg HS PO 01/31/18 21:00 03/02/18 20:59 02/06/18 21:20 0.4 MG Tramadol HCl (Ultram Tab) 50 mg Q4H PRN PO 01/31/18 14:30 03/02/18 14:29 Cholecalciferol (Vitamin D Tab) 2,000 inter.unit DAILY PO 02/01/18 09:00 03/03/18 08:59 02/07/18 09:15 2,000 INTER.UNIT Ipratropium [place] (Atrovent 0.02% 0.5MG/2.5ML Neb) 0.5 mg Q6R INH 01/31/18 21:00 03/02/18 20:59 02/07/18 19:26 0.5 MG Levalbuterol (Xopenex 1.25MG/ 0.5ML Neb) 1.25 mg Q6R INH 01/31/18 21:00 03/02/18 20:59 02/07/18 19:26 1.25 MG Ipratropium [place] (Atrovent 0.02% 0.5MG/2.5ML Neb) 0.5 mg Q4H PRN INH 01/31/18 16:00 03/02/18 15:59 Levalbuterol (Xopenex 0.63 Mg/ 3 Ml Neb) 0.63 mg Q4H PRN INH 01/31/18 16:00 03/02/18 15:59 Piperacillin Sod/ Tazobactam Sod 3.375 gm/Sodium Chloride 115 ml @ 28.75 mls/ hr Q8H IV 01/31/18 17:00 02/10/18 23:59 02/07/18 17:18 28.75 MLS/HR Magnesium Hydroxide (Milk Of Magnesia Susp) 30 ml Q12H PRN PO 01/31/18 16:30 03/02/18 16:29 Dornase [place] (Pulmozyme Inhalation Soln 2.5ml Amp) 2.5 ml BIDR INH 01/31/18 20:00 03/02/18 19:59 02/07/18 19:26 2.5 ML Guaifenesin (Robitussin Sugar Free Syrup) 100 mg Q6H PRN PO 02/01/18 22:15 03/03/18 22:14 02/03/18 04:09 100 MG Enteral Nutritional Formula (Boost Glucose Control) 1 can TIDM PO 02/03/18 09:00 03/05/18 07:59 02/07/18 17:12 1 CAN Methylprednisolone Sodium Succinate 40 mg/Syringe 0.64 ml @ 1.5 mls/min TID IV 02/04/18 21:00 03/06/18 20:59 02/07/18 14:07 1.5 MLS/MIN Insulin Glargine (Lantus Solostar Pen) SEE PROTOCOL TEXT BID SC 02/06/18 09:00 03/08/18 08:59 02/07/18 09:20 20 UNITS Warfarin Sodium (Coumadin Tab) 2 mg DAILY@16 PO 02/07/18 16:00 03/04/18 15:59 02/07/18 17:10 2 MG
--- NOTE | 2018-02-07 20:13 | DIAGNOSTIC IMAGING REPORT ---
(CHEST) THORAX WITHOUT CT DOSE: 517.24 mGy.cm CLINICAL HISTORY: 87 years-old Male with ali . Acute respiratory failure TECHNIQUE: Multiaxial CT images of the chest were performed without contrast. A dose lowering technique was utilized adhering to the principles of ALARA. COMPARISON: Chest radiograph 02/06/2018, CT chest 01/01/2018. FINDINGS: No dominant thyroid nodule identified. Evaluation for adenopathy is limited without use of IV contrast. Mildly enlarged precarinal lymph node measures 1.0 cm on image 116 series 4, previously measuring 7 mm. Right hilar lymph nodes measure up to 10 mm. Mildly prominent left paratracheal, pretracheal and left hilar lymph nodes. Heart is in the upper limits of normal without pericardial effusion. Coronary arterial disease. No aortic aneurysm. Small to moderate bilateral pleural effusions, minimally loculated on the right. Evaluation of the lungs is limited secondary to respiratory motion. Mild paraseptal and some of this changes are redemonstrated. Multilobar multifocal groundglass and consolidative opacities are redemonstrated with chronic subpleural reticulation. Central coarsening air bronchograms are noted within the lung bases and right upper lobe. The degree of consolidation has progressed from comparison study 01/01/2018. No pneumothorax. Evaluation of the lungs is limited secondary to respiratory motion. No acute process of the imaged upper abdomen. Soft tissues are unremarkable. Bones appear intact. Multilevel endplate spurring about the spine. IMPRESSION: 1. Multifocal multilobar distribution of groundglass and consolidative opacities demonstrate central air bronchograms and have progressively worsened from comparison chest CT 01/01/2018 suggesting pneumonia with small to moderate bilateral pleural effusions. 2. Background emphysema with chronic subpleural reticular opacities. 3. Mild mediastinal adenopathy, likely reactive. Electronically signed by: Freddie Crane M.D. 02/07/2018 8:12 PM Dictated Date/Time: 02/07/2018 8:00 PM
[2018-02-07] MEDS: TAMSULOSIN HCL 0.4 MG CAP PO SCH (20:48)
[2018-02-08] VITALS (14 sets, daily range): BP systolic 80–146; BP diastolic 50–74; PULSE 65–85; TEMP 36.4–36.9; O2SAT 68–100
[2018-02-08] MEDS: PIPERACILL/TAZOBAC IV 3.375 GM in NSS 100ML IV SCH ×3 (00:35→17:10)
[2018-02-08] MEDS: IPRATROPIUM BROMIDE NEB SOLN 0.02% 2.5 ML VIAL INH SCH ×4 (01:54→19:25)
[2018-02-08] MEDS: LEVALBUTEROL 1.25MG/0.5ML NEB INH SCH ×4 (01:54→19:25)
[2018-02-08 07:02] LABS: HEMATOCRIT 34.5 % (42-52); HEMOGLOBIN 10.8 g/dL (14.0-18.0); MEAN CORPUSCULAR HEMOGLOBIN 29.1 pg (25-34); MEAN CORPUSCULAR HGB CONC 31.3 g/dl (32-36); MEAN PLATELET VOLUME 8.9 fL (7.4-10.4); PLATELET COUNT 241 K/uL (130-400); RED CELL DISTRIBUTION WIDTH CV 16.7 % (11.5-14.5); RED CELL DISTRIBUTION WIDTH SD 56.7 fL (36.4-46.3); WHITE BLOOD COUNT 16.14 K/uL (4.8-10.8)
[2018-02-08] MEDS: DORNASE ALFA 2.5 ML AMP INH SCH ×2 (07:09→19:55)
[2018-02-08 07:13] LABS: INR 4.1 (0.9-1.1)
[2018-02-08] MEDS: PANTOprazole SOD 40 MG TAB PO SCH (07:42)
[2018-02-08] MEDS: BOOST GLUCOSE CONTROL PO SCH ×3 (07:43→17:10)
[2018-02-08] MEDS: CHOLECALCIFEROL 1000 INTER.UNIT TAB PO SCH (07:43)
[2018-02-08] MEDS: METHYLPREDNISOLONE IV 40 MG in SYRINGE 0 ML IV SCH ×3 (08:09→20:50)
[2018-02-08] MEDS: INSULIN ASPART 100 UNITS/ML 3 ML PEN SC SCH ×4 (08:12→20:51)
[2018-02-08] MEDS: INSULIN GLARGINE SOLOSTAR 100 UNITS/ML 3 ML PEN SC SCH ×2 (08:12→20:56)
[2018-02-08] MEDS ORDERED: FUROSEMIDE INJ 40 MG in SYRINGE 0 ML IV ONE ×2 (09:15→17:00)
--- NOTE | 2018-02-08 12:40 | Pulmonology Progress Note ---
Pulmonary Progress Note Date of Service Feb 08, 2018. Attending Dr. Montelongo Subjective The patient continued to be clinically the same, history requiring 75% FiO2 with 60 L of oxygen via high flow. Apparently he did not tolerate the BiPAP overnight. Objective His physical exam on 02/08/2018 revealed vital signs are still borderline with FiO2 of 75% to keep his O2 sat above than 90%. No JVP, S1-S2 regular rate and rhythm, scattered crackles bilaterally, abdomen is benign no edema. CAT scan of the chest was reviewed which showed multiple areas of interstitial changes as well as airspace disease with bilateral pleural effusion. It has been worsening compared to the CAT scan from a month ago. His laboratory also were reviewed which showed INR of 4.2. Assessment & Plan 1. ARDS, the patient oxygen requirement has been persistently on the high side. 2. Multilobar pneumonia with developing bilateral pleural effusion. 3. The findings on the CAT scan concerning for ongoing interstitial lung disease such as AIP, NSIP rather than just infectious process. 4. Bilateral pleural effusion is concerning also for decompensated cardiomyopathy. 5. Left upper lobe nodule. 6. DVT. Plan: 1. I will increase Solu-Medrol to 40 mg IV every 6 hours. 2. Diuresis with Lasix today every 12 hours 2 doses. 3. Continue with a high flow oxygen. 4. The patient could not tolerate the BiPAP and I will change his settings to a lower pressure tonight. He should be on the BiPAP every night. 5. Continue with a high flow oxygen during the daytime. 6. Concerns for ongoing aspiration cannot be ruled out. 7. Oral intake has been suboptimal in this patient, he would benefit from a booster drink. 8. Hold Coumadin. Thank you, will follow. Data Medications: Current Inpatient Medications Medications (Trade) Dose Ordered Sig/Krystal Route Start Time Stop Time Status Last Admin Dose Admin Acetaminophen (Tylenol Tab) 650 mg Q4H PRN PO 01/31/18 13:15 03/02/18 13:14 02/03/18 04:09 650 MG Nitroglycerin (Nitrostat Tab) 0.4 mg UD PRN SL 01/31/18 13:15 03/02/18 13:14 Miscellaneous Information (Consult) 1 ea UD PRN N/A 01/31/18 13:30 03/02/18 13:29 Insulin Aspart (novoLOG ASPART) SLIDING SCALE If C... ACHS SC 01/31/18 16:00 03/02/18 15:59 02/08/18 12:20 22 UNITS Glucose (Glucose 40% Gel) 15-30 GRAMS 15 GRAMS... UD PRN PO 01/31/18 14:15 03/02/18 14:14 Glucose (Glucose Chew Tab) 4-8 Tablets 4 Tabl... UD PRN PO 01/31/18 14:15 03/02/18 14:14 Dextrose (Dextrose 50% 50ML Syringe) 25-50ML OF 50% DW IV FOR... UD PRN IV 01/31/18 14:15 03/02/18 14:14 Glucagon (Glucagon Inj) 1 mg UD PRN SQ 01/31/18 14:15 03/02/18 14:14 Miscellaneous Information (Consult Glycemic Management Pharmacy) 1 ea UD PRN N/A 01/31/18 14:31 03/02/18 14:30 Pantoprazole Sodium (Protonix Tab) 40 mg DAILY PO 02/01/18 09:00 03/03/18 08:59 02/08/18 07:42 40 MG Tamsulosin HCl (Flomax Cap) 0.4 mg HS PO 01/31/18 21:00 03/02/18 20:59 02/07/18 20:48 0.4 MG Tramadol HCl (Ultram Tab) 50 mg Q4H PRN PO 01/31/18 14:30 03/02/18 14:29 Cholecalciferol (Vitamin D Tab) 2,000 inter.unit DAILY PO 02/01/18 09:00 03/03/18 08:59 02/08/18 07:43 2,000 INTER.UNIT Ipratropium [place] (Atrovent 0.02% 0.5MG/2.5ML Neb) 0.5 mg Q6R INH 01/31/18 21:00 03/02/18 20:59 02/08/18 07:09 0.5 MG Levalbuterol (Xopenex 1.25MG/ 0.5ML Neb) 1.25 mg Q6R INH 01/31/18 21:00 03/02/18 20:59 02/08/18 07:09 1.25 MG Ipratropium [place] (Atrovent 0.02% 0.5MG/2.5ML Neb) 0.5 mg Q4H PRN INH 01/31/18 16:00 03/02/18 15:59 Levalbuterol (Xopenex 0.63 Mg/ 3 Ml Neb) 0.63 mg Q4H PRN INH 01/31/18 16:00 03/02/18 15:59 Piperacillin Sod/ Tazobactam Sod 3.375 gm/Sodium Chloride 115 ml @ 28.75 mls/ hr Q8H IV 01/31/18 17:00 02/10/18 23:59 02/08/18 08:09 28.75 MLS/HR Magnesium Hydroxide (Milk Of Magnesia Susp) 30 ml Q12H PRN PO 01/31/18 16:30 03/02/18 16:29 Dornase [place] (Pulmozyme Inhalation Soln 2.5ml Amp) 2.5 ml BIDR INH 01/31/18 20:00 03/02/18 19:59 02/08/18 07:09 2.5 ML Guaifenesin (Robitussin Sugar Free Syrup) 100 mg Q6H PRN PO 02/01/18 22:15 03/03/18 22:14 02/03/18 04:09 100 MG Enteral Nutritional Formula (Boost Glucose Control) 1 can TIDM PO 02/03/18 09:00 03/05/18 07:59 02/08/18 12:18 1 CAN Methylprednisolone Sodium Succinate 40 mg/Syringe 0.64 ml @ 1.5 mls/min TID IV 02/04/18 21:00 03/06/18 20:59 02/08/18 08:09 1.5 MLS/MIN Insulin Glargine (Lantus Solostar Pen) SEE PROTOCOL TEXT BID SC 02/06/18 09:00 03/08/18 08:59 02/08/18 08:12 20 UNITS Warfarin Sodium (Coumadin Tab) 2 mg DAILY@16 PO 02/07/18 16:00 03/04/18 15:59 Future hold 02/07/18 17:10 2 MG Vital Signs: Date Time Temp Pulse Resp B/P (MAP) Pulse Ox O2 Delivery O2 Flow Rate FiO2 02/08/18 12:16 36.4 76 22 130/66 (87) 93 50.0 50 02/08/18 08:00 High Flow Oxygen 50.0 60 02/08/18 07:17 36.7 72 16 142/68 (92) 92 High Flow Oxygen 02/08/18 07:10 85 22 68 Nasal Cannula 50.0 50 02/08/18 04:00 High Flow Oxygen 50.0 60 02/08/18 03:48 36.5 70 20 129/71 (90) 95 High Flow Oxygen 50.0 60 02/08/18 01:56 65 18 97 Nasal Cannula 50.0 60 02/08/18 00:00 High Flow Oxygen 50.0 60 02/08/18 00:00 36.4 73 20 146/74 (98) 97 High Flow Oxygen 50.0 60 02/07/18 20:00 BiPAP 50 02/07/18 19:57 36.4 83 20 139/69 (92) 93 02/07/18 19:28 74 20 93 Nasal Cannula 50.0 60 02/07/18 16:00 94 High Flow Oxygen 50.0 60 02/07/18 15:48 36.5 70 20 138/68 (91) 95 02/07/18 14:04 65 20 96 Nasal Cannula 50.0 65 Laboratory Results: Last 24 Hours Test 02/07/18 16:32 02/07/18 20:37 02/08/18 06:34 02/08/18 07:37 Bedside Glucose 150 mg/dl 183 mg/dl 154 mg/dl White Blood Count 16.14 K/uL Red Blood Count 3.71 M/uL Hemoglobin 10.8 g/dL Hematocrit 34.5 % Mean Corpuscular Volume 93.0 fL Mean Corpuscular Hemoglobin 29.1 pg Mean Corpuscular Hemoglobin Concent 31.3 g/dl RDW Standard Deviation 56.7 fL RDW Coefficient of Variation 16.7 % Platelet Count 241 K/uL Mean Platelet Volume 8.9 fL Prothrombin Time 41.6 SECONDS Prothromb Time International Ratio 4.1 Test 02/08/18 11:35 Bedside Glucose 252 mg/dl
--- NOTE | 2018-02-08 14:07 | Pharmacy Progress Note ---
Pharmacy Glycemic Short Note 2 Date of Service Feb 08, 2018. OUTPATIENT ANTIDIABETIC REGIMEN: * Lantus 10 units SQ AM + 20 units SQ HS * Novolog per scale * HbA1c: 7.4% (02/01/18) ASSESSMENT: * Pt has been requiring ~100 units of insulin per day for the past several days. * BSGs have been reasonably well-control, with the exception of pre-lunch hyperglycemia. * Carb ratio tightened to provide more prandial coverage with Novolog. PLAN FOR INPATIENT GLYCEMIC CONTROL: * Basal insulin - * Continue Lantus 15-20 units SQ BID - Lantus 15 units for BSG less than 140 mg/dL - Lantus 20 units for BSG 140 mg/dL or greater * Bolus insulin - * NovoLog per scale ACHS or Q6hrs while NPO * Goal Range: Low 110 mg/dL - High 140 mg/dL * Correction Factor: 12 mg/dL/unit * Nutritional / Prandial insulin per carb ratio of 1 unit per 4 grams CHO consumed PLAN FOR DISCHARGE: * Significant improvement in A1c with the addition of basal insulin after last admission * A1c 10.4% in Nov 2017 --> now down to 7.4% in January 2018. * Appropriate to continue current outpatient regimen as long as patient is not experiencing hypoglycemia * Pt typically requires less insulin during admission than ordered outpatient dosing, but, this may be due to controlled CHO diet in house.
--- NOTE | 2018-02-08 17:46 | Progress Note ---
Internal Med Progress Note Date of Service: Feb 08, 2018. Provider Documentation: SUBJECTIVE: Patient is very hard of hearing remains in high flow oxygen FiO2 60% No complain of respiratory distress at rest Experiencing desaturation/shortness of breath with minimum activity No cough, no fever chills OBJECTIVE: Vital Signs-as noted below Exam: General- No acute distress Head- atraumatic Eyes- PERRL, EOMI ENT- oropharynx clear Neck- supple, no JVD Lungs- +Coarse/wheezing BS more in RUL Heart- regular rhythm Abdomen- normal bowel sounds, soft Extremities- no calf tenderness Neuro- alert, oriented, PERRL, EOMI/very hard of hearing, no focal neurological deficit Skin- warm & dry Lab data as noted below. ASSESSMENT & PLAN: Pt with Hx hospital admission 12/15/17-01/19/18 for acute respiratory failure, influenza A, MSSA pneumonia, OKSANA and D/C to [facility] presented with increased cough and SOB, & fever 100.4F today ACUTE HYPOXEMIC RESPIRATORY FAILURE/ARDS Due to hospital acquired pneumonia requiring 75% FiO2 with 60 L of oxygen via high flow. he did not tolerate the BiPAP overnight. CXR showed right basilar interstitial thickening persists. Left upper lobe nodular airspace opacity is also noted IMPRESSION: 1. Multifocal multilobar distribution of groundglass and consolidative opacities demonstrate central air bronchograms and have progressively worsened from comparison chest CT 01/01/2018 suggesting pneumonia with small to moderate bilateral pleural effusions. 2. Background emphysema with chronic subpleural reticular opacities. 3. Mild mediastinal adenopathy, likely reactive. Appreciate input from pulmonology Received Vanco and Zosyn IV Vanco D/C and continue IV Zosyn (MRSA swab negative) Leukocytosis possible due to steroid induced Pulmonology on board-appreciate input Increased IV Solu-Medrol Ordered IV Lasix ABG done suggest no CO2 retention, but elevated AA gradient Possible interstitial lung disease Concern for recurrent aspiration-diet change to dental soft with aspiration precaution Speech evaluation requested CXR showed no significant change in the dense consolidation of the right upper lung and lung bases, left greater than right. ECHO * The left ventricle is normal in size. * There is mild concentric left ventricular hypertrophy. * Ejection Fraction = 55-60%. * The right ventricle is normal size. * The right ventricular systolic function is normal. * The left atrial size is normal. * Right atrial size is normal. * There is trace tricuspid regurgitation. * There is no evidence of pulmonary hypertension. The PA systolic pressure is less than 36 mmHg. Compared to prior study, there is no significant change HYPOMAGNESIA Corrected Monitor labs HYPONATREMIA Na improved to 135 Stable DM II H A1c 7.4 on 02/01 NovoLog sliding scale per protocol Pharmacy on board for glycemic management CKD III Cr: 1.4 (baseline) Renal function remained stable Continue monitor BMP Stable Hx PROLONGED QTc Avoid QTc prolonging agents Hx A FLUTTER ON COUMADIN Rate control on Normal sinus rhythm. On Coumadin Monitor PT/INR Hx THROMBOCYTOPENIA Platelet count within normal limit HISTORY CHRONIC DVT RLE On Coumadin Doppler of LE Nonocclusive thrombus in the right posterior tibial and right peroneal veins, consistent with acute deep venous thrombosis. BPH Continue Flomax NECK PAIN MRI C-spine showed moderate multilevel cervical spondylosis Continue tramadol as needed pain Stable DVT Prophylaxis On Coumadin Disposition Plan to discharge to [facility] once medically stable. Vital Signs: Date Time Temp Pulse Resp B/P (MAP) Pulse Ox O2 Delivery O2 Flow Rate FiO2 02/09/18 01:43 66 20 94 Nasal Cannula 50.0 50 02/09/18 00:00 High Flow Oxygen 50.0 55 02/08/18 23:46 123/66 (85) 91 High Flow Oxygen 50.0 55 02/08/18 23:22 36.9 71 20 80/50 (60) 89 High Flow Oxygen 02/08/18 20:00 90 High Flow Oxygen 50.0 55 02/08/18 19:25 74 24 97 Nasal Cannula 50.0 70 02/08/18 19:14 36.4 75 18 114/64 (81) 93 High Flow Oxygen 50.0 80 02/08/18 16:00 100 High Flow Oxygen 50.0 80 02/08/18 15:31 36.4 67 20 106/65 (79) 100 High Flow Oxygen 50.0 02/08/18 14:35 74 20 96 Nasal Cannula 50.0 80 02/08/18 12:16 36.4 76 22 130/66 (87) 93 50.0 50 02/08/18 12:00 High Flow Oxygen 50.0 60 02/08/18 08:00 High Flow Oxygen 50.0 60 02/08/18 07:17 36.7 72 16 142/68 (92) 92 High Flow Oxygen 02/08/18 07:10 85 22 68 Nasal Cannula 50.0 50 02/08/18 04:00 High Flow Oxygen 50.0 60 02/08/18 03:48 36.5 70 20 129/71 (90) 95 High Flow Oxygen 50.0 60 Lab Results: Results Past 24 Hours Test 02/08/18 06:34 02/08/18 07:37 02/08/18 11:35 02/08/18 16:14 Range/Units White Blood Count 16.14 4.8-10.8 K/uL Red Blood Count 3.71 4.7-6.1 M/uL Hemoglobin 10.8 14.0-18.0 g/dL Hematocrit 34.5 42-52 % Mean Corpuscular Volume 93.0 80-100 fL Mean Corpuscular Hemoglobin 29.1 25-34 pg Mean Corpuscular Hemoglobin Concent 31.3 32-36 g/dl RDW Standard Deviation 56.7 36.4-46.3 fL RDW Coefficient of Variation 16.7 11.5-14.5 % Platelet Count 241 130-400 K/uL Mean Platelet Volume 8.9 7.4-10.4 fL Prothrombin Time 41.6 9.0-12.0 SECONDS Prothromb Time International Ratio 4.1 0.9-1.1 Bedside Glucose 154 252 174 70-99 mg/dl Test 02/08/18 20:18 Range/Units Bedside Glucose 132 70-99 mg/dl
[2018-02-08] MEDS: TAMSULOSIN HCL 0.4 MG CAP PO SCH (20:50)
[2018-02-09] VITALS (12 sets, daily range): BP systolic 91–137; BP diastolic 49–73; PULSE 66–88; TEMP 36.2–36.8; O2SAT 85–98
[2018-02-09] MEDS: PIPERACILL/TAZOBAC IV 3.375 GM in NSS 100ML IV SCH ×3 (01:19→17:45)
[2018-02-09] MEDS: IPRATROPIUM BROMIDE NEB SOLN 0.02% 2.5 ML VIAL INH SCH ×4 (01:42→18:51)
[2018-02-09] MEDS: LEVALBUTEROL 1.25MG/0.5ML NEB INH SCH ×4 (01:42→18:50)
[2018-02-09 06:25] LABS: BASO ABS # 0.01 K/uL (0-0.2); HEMATOCRIT 36.2 % (42-52); HEMOGLOBIN 11.5 g/dL (14.0-18.0); IG# 0.19 K/uL (0.00-0.02); LYMPH % 4.7 %; LYMPH ABS # 0.96 K/uL (1.2-3.4); MEAN CELL VOLUME 92.8 fL (80-100); MEAN CORPUSCULAR HEMOGLOBIN 29.5 pg (25-34); MEAN CORPUSCULAR HGB CONC 31.8 g/dl (32-36); MEAN PLATELET VOLUME 9.3 fL (7.4-10.4); MONO % 5.2 %; MONO ABS # 1.05 K/uL (0.11-0.59); NEUT % 89.2 %; NEUT ABS # 18.02 K/uL (1.4-6.5); PLATELET COUNT 256 K/uL (130-400); RED CELL DISTRIBUTION WIDTH CV 16.4 % (11.5-14.5); RED CELL DISTRIBUTION WIDTH SD 55.3 fL (36.4-46.3); WHITE BLOOD COUNT 20.23 K/uL (4.8-10.8)
[2018-02-09 06:36] LABS: INR 3.3 (0.9-1.1)
[2018-02-09] MEDS: DORNASE ALFA 2.5 ML AMP INH SCH ×2 (07:00→18:50)
[2018-02-09 07:04] LABS: CALCIUM 7.4 mg/dl (8.5-10.1); CREATININE 1.43 mg/dl (0.60-1.40); POTASSIUM 3.6 mmol/L (3.5-5.1)
[2018-02-09] MEDS: INSULIN GLARGINE SOLOSTAR 100 UNITS/ML 3 ML PEN SC SCH ×2 (08:41→20:49)
[2018-02-09] MEDS: INSULIN ASPART 100 UNITS/ML 3 ML PEN SC SCH ×4 (08:41→20:48)
[2018-02-09] MEDS: BOOST GLUCOSE CONTROL PO SCH ×3 (08:45→17:24)
[2018-02-09] MEDS: CHOLECALCIFEROL 1000 INTER.UNIT TAB PO SCH (08:45)
[2018-02-09] MEDS: METHYLPREDNISOLONE IV 40 MG in SYRINGE 0 ML IV SCH ×3 (08:45→20:45)
[2018-02-09] MEDS: PANTOprazole SOD 40 MG TAB PO SCH (08:45)
--- NOTE | 2018-02-09 16:22 | Pulmonology Progress Note ---
Pulmonary Progress Note Date of Service Feb 09, 2018. Attending Dr. Montelongo Subjective The patient is hard of hearing however communication with him was very difficult , the patient clinical status has not changed overnight. He continued to require 70% oxygen via high flow. Cough but without sputum production. Objective His physical exam on 02/08/2018 revealed vital signs are still borderline with FiO2 of 75% to keep his O2 sat above than 90%. No JVP, S1-S2 regular rate and rhythm, scattered crackles bilaterally, abdomen is benign no edema. CAT scan of the chest was reviewed which showed multiple areas of interstitial changes as well as airspace disease with bilateral pleural effusion. It has been worsening compared to the CAT scan from a month ago. His laboratory also were reviewed which showed INR of 4.2. His physical exam on 02/09/2018 revealed vital signs are stable although saturation reported at 100% on 70%. S1-S2, regular rate and rhythm, distant crackles bilaterally, abdomen is benign, no edema. INR is 3.3. Assessment & Plan 1. ARDS, requiring high flow oxygen. 2. Multilobar pneumonia with developing bilateral pleural effusion. 3. The findings on the CAT scan concerning for ongoing interstitial lung disease such as AIP, NSIP rather than just infectious process. Not amenable to lung biopsy given his condition. 4. Bilateral pleural effusion is concerning also for decompensated cardiomyopathy. 5. Left upper lobe nodule. 6. DVT. Plan: 1. I will change Solu-Medrol to every 12 hours 40 mg. 2. Diuresis . 3. Continue with a high flow oxygen. Decrease FiO2 by 10% every hours as tolerated to keep O2 sat above than 85%.2 4. BiPAP 12/5 every night from 10 PM to 7A. 5. Continue with a high flow oxygen during the daytime. 6. The finding on the CAT scan is concerning to me for ongoing interstitial lung disease as mentioned above. 7. Oral intake has been suboptimal in this patient, he would benefit from a booster drink. 8. Hold Coumadin. INR is 3.3. Thank you, will follow. Data Medications: Current Inpatient Medications Medications (Trade) Dose Ordered Sig/Krystal Route Start Time Stop Time Status Last Admin Dose Admin Acetaminophen (Tylenol Tab) 650 mg Q4H PRN PO 01/31/18 13:15 03/02/18 13:14 02/03/18 04:09 650 MG Nitroglycerin (Nitrostat Tab) 0.4 mg UD PRN SL 01/31/18 13:15 03/02/18 13:14 Miscellaneous Information (Consult) 1 ea UD PRN N/A 01/31/18 13:30 03/02/18 13:29 Insulin Aspart (novoLOG ASPART) SLIDING SCALE If C... ACHS SC 01/31/18 16:00 03/02/18 15:59 02/09/18 12:05 14 UNITS Glucose (Glucose 40% Gel) 15-30 GRAMS 15 GRAMS... UD PRN PO 01/31/18 14:15 03/02/18 14:14 Glucose (Glucose Chew Tab) 4-8 Tablets 4 Tabl... UD PRN PO 01/31/18 14:15 03/02/18 14:14 Dextrose (Dextrose 50% 50ML Syringe) 25-50ML OF 50% DW IV FOR... UD PRN IV 01/31/18 14:15 03/02/18 14:14 Glucagon (Glucagon Inj) 1 mg UD PRN SQ 01/31/18 14:15 03/02/18 14:14 Miscellaneous Information (Consult Glycemic Management Pharmacy) 1 ea UD PRN N/A 01/31/18 14:31 03/02/18 14:30 Pantoprazole Sodium (Protonix Tab) 40 mg DAILY PO 02/01/18 09:00 03/03/18 08:59 02/08/18 07:42 40 MG Tamsulosin HCl (Flomax Cap) 0.4 mg HS PO 01/31/18 21:00 03/02/18 20:59 02/08/18 20:50 0.4 MG Tramadol HCl (Ultram Tab) 50 mg Q4H PRN PO 01/31/18 14:30 03/02/18 14:29 Cholecalciferol (Vitamin D Tab) 2,000 inter.unit DAILY PO 02/01/18 09:00 03/03/18 08:59 02/08/18 07:43 2,000 INTER.UNIT Ipratropium [place] (Atrovent 0.02% 0.5MG/2.5ML Neb) 0.5 mg Q6R INH 01/31/18 21:00 03/02/18 20:59 02/09/18 14:18 0.5 MG Levalbuterol (Xopenex 1.25MG/ 0.5ML Neb) 1.25 mg Q6R INH 01/31/18 21:00 03/02/18 20:59 02/09/18 14:18 1.25 MG Ipratropium [place] (Atrovent 0.02% 0.5MG/2.5ML Neb) 0.5 mg Q4H PRN INH 01/31/18 16:00 03/02/18 15:59 Levalbuterol (Xopenex 0.63 Mg/ 3 Ml Neb) 0.63 mg Q4H PRN INH 01/31/18 16:00 03/02/18 15:59 Piperacillin Sod/ Tazobactam Sod 3.375 gm/Sodium Chloride 115 ml @ 28.75 mls/ hr Q8H IV 01/31/18 17:00 02/10/18 23:59 02/09/18 08:44 28.75 MLS/HR Magnesium Hydroxide (Milk Of Magnesia Susp) 30 ml Q12H PRN PO 01/31/18 16:30 03/02/18 16:29 Dornase Rafael (Pulmozyme Inhalation Soln 2.5ml Amp) 2.5 ml BIDR INH 01/31/18 20:00 03/02/18 19:59 02/09/18 07:00 2.5 ML Guaifenesin (Robitussin Sugar Free Syrup) 100 mg Q6H PRN PO 02/01/18 22:15 03/03/18 22:14 02/03/18 04:09 100 MG Enteral Nutritional Formula (Boost Glucose Control) 1 can TIDM PO 02/03/18 09:00 03/05/18 07:59 02/09/18 12:01 1 CAN Methylprednisolone Sodium Succinate 40 mg/Syringe 0.64 ml @ 1.5 mls/min TID IV 02/04/18 21:00 03/06/18 20:59 02/09/18 14:23 1.5 MLS/MIN Insulin Glargine (Lantus Solostar Pen) SEE PROTOCOL TEXT BID SC 02/06/18 09:00 03/08/18 08:59 02/09/18 08:41 15 UNITS Warfarin Sodium (Coumadin Tab) 2 mg DAILY@16 PO 02/07/18 16:00 03/04/18 15:59 Future hold 02/07/18 17:10 2 MG I & O: 24-Hour Column 02/10/18 08:00 Intake Total 385 ml Output Total 475 ml Balance -90 ml Vital Signs: Date Time Temp Pulse Resp B/P (MAP) Pulse Ox O2 Delivery O2 Flow Rate FiO2 02/09/18 16:02 36.7 69 18 137/73 (94) 98 High Flow Oxygen 50.0 70 02/09/18 14:20 67 22 98 Nasal Cannula 50.0 80 02/09/18 12:13 79 22 115/61 (79) 85 High Flow Oxygen 02/09/18 12:00 High Flow Oxygen 50.0 80 02/09/18 08:07 89 Nasal Cannula 80.0 50 02/09/18 08:00 36.2 88 24 91/49 (63) 02/09/18 08:00 High Flow Oxygen 50.0 80 02/09/18 07:01 71 20 90 Nasal Cannula 50.0 50 02/09/18 04:15 92 High Flow Oxygen 50.0 55 02/09/18 04:07 36.8 68 20 113/59 (77) 88 High Flow Oxygen 02/09/18 04:00 High Flow Oxygen 50.0 55 02/09/18 01:43 66 20 94 Nasal Cannula 50.0 50 02/09/18 00:00 High Flow Oxygen 50.0 55 02/08/18 23:46 123/66 (85) 91 High Flow Oxygen 50.0 55 02/08/18 23:22 36.9 71 20 80/50 (60) 89 High Flow Oxygen 02/08/18 20:00 90 High Flow Oxygen 50.0 55 02/08/18 19:25 74 24 97 Nasal Cannula 50.0 70 02/08/18 19:14 36.4 75 18 114/64 (81) 93 High Flow Oxygen 50.0 80 Laboratory Results: Last 24 Hours Test 02/08/18 20:18 02/09/18 06:03 02/09/18 07:46 02/09/18 11:26 Bedside Glucose 132 mg/dl 117 mg/dl 172 mg/dl White Blood Count 20.23 K/uL Red Blood Count 3.90 M/uL Hemoglobin 11.5 g/dL Hematocrit 36.2 % Mean Corpuscular Volume 92.8 fL Mean Corpuscular Hemoglobin 29.5 pg Mean Corpuscular Hemoglobin Concent 31.8 g/dl Platelet Count 256 K/uL Mean Platelet Volume 9.3 fL Neutrophils (%) (Auto) 89.2 % Lymphocytes (%) (Auto) 4.7 % Monocytes (%) (Auto) 5.2 % Eosinophils (%) (Auto) 0.0 % Basophils (%) (Auto) 0.0 % Neutrophils # (Auto) 18.02 K/uL Lymphocytes # (Auto) 0.96 K/uL Monocytes # (Auto) 1.05 K/uL Eosinophils # (Auto) 0.00 K/uL Basophils # (Auto) 0.01 K/uL RDW Standard Deviation 55.3 fL RDW Coefficient of Variation 16.4 % Immature Granulocyte % (Auto) 0.9 % Immature Granulocyte # (Auto) 0.19 K/uL Prothrombin Time 33.6 SECONDS Prothromb Time International Ratio 3.3 Sodium Level 141 mmol/L Potassium Level 3.6 mmol/L Chloride Level 103 mmol/L Carbon Dioxide Level 34 mmol/L Anion Gap 4.0 mmol/L Blood Urea Nitrogen 48 mg/dl Creatinine 1.43 mg/dl Est Creatinine Clear Calc Drug Dose 40.0 ml/min Estimated GFR () 51.0 Estimated GFR (Non- 44.0 BUN/Creatinine Ratio 33.6 Random Glucose 113 mg/dl Calcium Level 7.4 mg/dl
[2018-02-09] MEDS: WARFARIN SOD 2 MG TAB PO SCH (17:44)
--- NOTE | 2018-02-09 17:46 | Progress Note ---
Internal Med Progress Note Date of Service: Feb 09, 2018. Provider Documentation: SUBJECTIVE: Remains in high flow O2 Offers no complain, very hard to communicate due to patient's profound hearing loss Nonproductive cough noted no fever or chills OBJECTIVE: Vital Signs-as noted below Exam: General- No acute distress Head- atraumatic Eyes- PERRL, EOMI ENT- oropharynx clear Neck- supple, no JVD Lungs- +Coarse/wheezing BS more in RUL Heart- regular rhythm Abdomen- normal bowel sounds, soft Extremities- no calf tenderness Neuro- alert, oriented, PERRL, EOMI/very hard of hearing, no focal neurological deficit Skin- warm & dry Lab data as noted below. ASSESSMENT & PLAN: Pt with Hx hospital admission 12/15/17-01/19/18 for acute respiratory failure, influenza A, MSSA pneumonia, OKSANA and D/C to [facility] presented with increased cough and SOB, & fever 100.4F today ACUTE HYPOXEMIC RESPIRATORY FAILURE/ARDS Due to hospital acquired pneumonia Respiratory status remains unchanged, requiring high flow oxygen No improvement of addition of IV steroids/IV Lasix for possible pulmonary congestion Prognosis remains guarded requiring 75% FiO2 with 60 L of oxygen via high flow. he did not tolerate the BiPAP overnight. CXR showed right basilar interstitial thickening persists. Left upper lobe nodular airspace opacity is also noted IMPRESSION: 1. Multifocal multilobar distribution of groundglass and consolidative opacities demonstrate central air bronchograms and have progressively worsened from comparison chest CT 01/01/2018 suggesting pneumonia with small to moderate bilateral pleural effusions. 2. Background emphysema with chronic subpleural reticular opacities. 3. Mild mediastinal adenopathy, likely reactive. Appreciate input from pulmonology Received Vanco and Zosyn IV Vanco D/C and continue IV Zosyn (MRSA swab negative) Leukocytosis possible due to steroid induced Pulmonology on board-appreciate input Increased IV Solu-Medrol Ordered IV Lasix ABG done suggest no CO2 retention, but elevated AA gradient Possible interstitial lung disease Concern for recurrent aspiration-diet change to dental soft with aspiration precaution Speech evaluation requested CXR showed no significant change in the dense consolidation of the right upper lung and lung bases, left greater than right. ECHO * The left ventricle is normal in size. * There is mild concentric left ventricular hypertrophy. * Ejection Fraction = 55-60%. * The right ventricle is normal size. * The right ventricular systolic function is normal. * The left atrial size is normal. * Right atrial size is normal. * There is trace tricuspid regurgitation. * There is no evidence of pulmonary hypertension. The PA systolic pressure is less than 36 mmHg. Compared to prior study, there is no significant change HYPOMAGNESIA Corrected Monitor labs HYPONATREMIA Na level improved DM II H A1c 7.4 on 02/01 NovoLog sliding scale per protocol Pharmacy on board for glycemic management CKD III Cr: 1.4 (baseline) Renal function remained stable Continue monitor BMP Stable Hx PROLONGED QTc Avoid QTc prolonging agents Hx A FLUTTER ON COUMADIN Rate control on Normal sinus rhythm. On Coumadin Monitor PT/INR Hx THROMBOCYTOPENIA Platelet count within normal limit HISTORY CHRONIC DVT RLE On Coumadin Doppler of LE Nonocclusive thrombus in the right posterior tibial and right peroneal veins, consistent with acute deep venous thrombosis. BPH Continue Flomax NECK PAIN MRI C-spine showed moderate multilevel cervical spondylosis Continue tramadol as needed pain Stable DVT Prophylaxis On Coumadin CODE STATUS: DNR/DNI Disposition To be determined Patient remains in ongoing respiratory failure with high oxygen requirement Not stable to be transferred to rehab Vital Signs: Date Time Temp Pulse Resp B/P (MAP) Pulse Ox O2 Delivery O2 Flow Rate FiO2 02/10/18 16:00 95 High Flow Oxygen 50.0 50 02/10/18 15:23 36.4 66 20 125/70 (88) 95 50.0 48 02/10/18 12:00 95 High Flow Oxygen 50.0 50 02/10/18 11:45 36.8 70 20 148/69 (95) 83 High Flow Oxygen 02/10/18 08:00 95 High Flow Oxygen 50.0 50 02/10/18 07:11 36.6 86 20 118/65 (82) 95 High Flow Oxygen 50.0 50 02/10/18 07:04 68 16 92 Nasal Cannula 50.0 60 02/10/18 04:19 36.6 65 20 114/56 (75) 94 High Flow Oxygen 50.0 50 02/10/18 04:00 High Flow Oxygen 50.0 50 02/10/18 01:58 64 16 96 Nasal Cannula 50.0 60 02/10/18 00:00 High Flow Oxygen 50.0 70 02/09/18 22:48 36.6 68 20 112/62 (79) 96 High Flow Oxygen 50.0 70 02/09/18 20:00 High Flow Oxygen 50.0 70 02/09/18 19:09 36.4 70 20 115/66 (82) 95 High Flow Oxygen 50.0 02/09/18 18:55 68 20 97 Nasal Cannula 50.0 70 Lab Results: Results Past 24 Hours Test 02/09/18 19:47 02/10/18 05:56 02/10/18 07:33 02/10/18 09:02 Range/Units Bedside Glucose 174 63 111 70-99 mg/dl White Blood Count 19.04 4.8-10.8 K/uL Red Blood Count 3.86 4.7-6.1 M/uL Hemoglobin 11.4 14.0-18.0 g/dL Hematocrit 35.9 42-52 % Mean Corpuscular Volume 93.0 80-100 fL Mean Corpuscular Hemoglobin 29.5 25-34 pg Mean Corpuscular Hemoglobin Concent 31.8 32-36 g/dl RDW Standard Deviation 56.1 36.4-46.3 fL RDW Coefficient of Variation 16.6 11.5-14.5 % Platelet Count 266 130-400 K/uL Mean Platelet Volume 9.1 7.4-10.4 fL Prothrombin Time 25.1 9.0-12.0 SECONDS Prothromb Time International Ratio 2.4 0.9-1.1 Creatinine 1.25 0.60-1.40 mg/dl Est Creatinine Clear Calc Drug Dose 45.8 ml/min Estimated GFR () 60.0 Estimated GFR (Non- 51.8 Test 02/10/18 11:06 Range/Units Bedside Glucose 139 70-99 mg/dl
[2018-02-09] MEDS: TAMSULOSIN HCL 0.4 MG CAP PO SCH (20:45)
[2018-02-10] VITALS (12 sets, daily range): BP systolic 114–148; BP diastolic 56–70; PULSE 64–86; TEMP 36.4–36.9; O2SAT 83–96; Ht 182.9 cm; Wt 75.2 kg
[2018-02-10] MEDS: PIPERACILL/TAZOBAC IV 3.375 GM in NSS 100ML IV SCH ×3 (01:27→17:26)
[2018-02-10] MEDS: IPRATROPIUM BROMIDE NEB SOLN 0.02% 2.5 ML VIAL INH SCH ×4 (01:57→19:40)
[2018-02-10] MEDS: LEVALBUTEROL 1.25MG/0.5ML NEB INH SCH ×4 (01:57→19:40)
[2018-02-10 06:21] LABS: HEMATOCRIT 35.9 % (42-52); HEMOGLOBIN 11.4 g/dL (14.0-18.0); MEAN CORPUSCULAR HEMOGLOBIN 29.5 pg (25-34); MEAN CORPUSCULAR HGB CONC 31.8 g/dl (32-36); MEAN PLATELET VOLUME 9.1 fL (7.4-10.4); PLATELET COUNT 266 K/uL (130-400); RED CELL DISTRIBUTION WIDTH CV 16.6 % (11.5-14.5); RED CELL DISTRIBUTION WIDTH SD 56.1 fL (36.4-46.3); WHITE BLOOD COUNT 19.04 K/uL (4.8-10.8)
[2018-02-10 06:32] LABS: INR 2.4 (0.9-1.1)
[2018-02-10 06:50] LABS: CREATININE 1.25 mg/dl (0.60-1.40)
[2018-02-10] MEDS: DORNASE ALFA 2.5 ML AMP INH SCH ×2 (07:04→19:50)
[2018-02-10] MEDS: PANTOprazole SOD 40 MG TAB PO SCH (09:47)
[2018-02-10] MEDS: METHYLPREDNISOLONE IV 40 MG in SYRINGE 0 ML IV SCH (09:48)
[2018-02-10] MEDS: CHOLECALCIFEROL 1000 INTER.UNIT TAB PO SCH (09:48)
[2018-02-10] MEDS: INSULIN ASPART 100 UNITS/ML 3 ML PEN SC SCH ×4 (09:50→21:00)
[2018-02-10] MEDS: INSULIN GLARGINE SOLOSTAR 100 UNITS/ML 3 ML PEN SC SCH ×2 (09:50→22:02)
[2018-02-10] MEDS: BOOST GLUCOSE CONTROL PO SCH ×3 (09:51→17:25)
--- NOTE | 2018-02-10 13:03 | Pharmacy Progress Note ---
Pharmacy Glycemic Short Note 2 Date of Service Feb 10, 2018. OUTPATIENT ANTIDIABETIC REGIMEN: * Lantus 10 units SQ AM + 20 units SQ HS * Novolog per scale * HbA1c: 7.4% (02/01/18) ASSESSMENT: * Pt daily total insulin requirement trending down over last 3 days * BSGs have been reasonably well-controlled * Fasting hypoglycemia this AM will adjust Lantus slightly PLAN FOR INPATIENT GLYCEMIC CONTROL: * Basal insulin - * Change to Lantus 15 units SQ BID * Bolus insulin - * NovoLog per scale ACHS or Q6hrs while NPO * Goal Range: Low 110 mg/dL - High 140 mg/dL * Correction Factor: 12 mg/dL/unit * Nutritional / Prandial insulin per carb ratio of 1 unit per 4 grams CHO consumed PLAN FOR DISCHARGE: * Significant improvement in A1c with the addition of basal insulin after last admission * A1c 10.4% in Nov 2017 --> now down to 7.4% in January 2018. * Appropriate to continue current outpatient regimen as long as patient is not experiencing hypoglycemia * Pt typically requires less insulin during admission than ordered outpatient dosing, but, this may be due to controlled CHO diet in house.
[2018-02-10] MEDS: WARFARIN SOD 2 MG TAB PO SCH (17:26)
--- NOTE | 2018-02-10 17:51 | Progress Note ---
Internal Med Progress Note Date of Service: Feb 10, 2018. Provider Documentation: SUBJECTIVE: No change in respiratory status, on high flow oxygen Desaturation with minimal movement Discussed with pulmonology-since prognosis remains extremely poor/recovering from ARDS is less likely Recommend discussion with family members regarding hospice palliative care Pulmonology will try to transition patient to 100% oxygen mask-which allow patient to be discharged Patient's and son present at bedside Updated patient's status and poor prognosis Both of them already had discussion with pulmonology and aware of patient's poor prognosis Wants patient to return home with hospice Patient will need 24-hour care complete care Willing for palliative care consult will continue to discuss with family member to assess for safe discharge plan with hospice /palliative care which will be appropriate in setting of very poor prognosis of the OBJECTIVE: Vital Signs-as noted below Exam: General-chronically ill-appearing, on high flow oxygen via nasal, Head- atraumatic Eyes- PERRL, EOMI ENT- oropharynx clear Neck- supple, no JVD Lungs- +Coarse/wheezing BS more in RUL Heart- regular rhythm Abdomen- normal bowel sounds, soft Extremities- no calf tenderness Neuro-oriented to personal, very hard of Skin- warm & dry Lab data as noted below. ASSESSMENT & PLAN: Pt with Hx hospital admission 12/15/17-01/19/18 for acute respiratory failure, influenza A, MSSA pneumonia, [place] and D/C to [facility] presented with increased cough and SOB, & fever 100.4F today ACUTE HYPOXEMIC RESPIRATORY FAILURE/ARDS Due to hospital acquired pneumonia/leading to worsening purse pulmonary stat Respiratory status remains unchanged, requiring high flow oxygen No improvement of addition of IV steroids/IV Lasix for possible pulmonary congestion Prognosis remains guarded After discussion with pulmonology/family members-palliative care consult requested Family wants patient to return home with hospice care, if his life expectancy is limited/chance of recovery remains extremely poor requiring 75% FiO2 with 60 L of oxygen via high flow. he did not tolerate the BiPAP overnight. CXR showed right basilar interstitial thickening persists. Left upper lobe nodular airspace opacity is also noted IMPRESSION: 1. Multifocal multilobar distribution of groundglass and consolidative opacities demonstrate central air bronchograms and have progressively worsened from comparison chest CT 01/01/2018 suggesting pneumonia with small to moderate bilateral pleural effusions. 2. Background emphysema with chronic subpleural reticular opacities. 3. Mild mediastinal adenopathy, likely reactive. Appreciate input from pulmonology ABG done suggest no CO2 retention, but elevated AA gradient Possible interstitial lung disease Concern for recurrent aspiration-diet change to dental soft with aspiration precaution CXR showed no significant change in the dense consolidation of the right upper lung and lung bases, left greater than right. ECHO * The left ventricle is normal in size. * There is mild concentric left ventricular hypertrophy. * Ejection Fraction = 55-60%. * The right ventricle is normal size. * The right ventricular systolic function is normal. * The left atrial size is normal. * Right atrial size is normal. * There is trace tricuspid regurgitation. * There is no evidence of pulmonary hypertension. The PA systolic pressure is less than 36 mmHg. Compared to prior study, there is no significant change HYPOMAGNESIA Corrected Monitor labs HYPONATREMIA Na level improved DM II H A1c 7.4 on 02/01 NovoLog sliding scale per protocol Pharmacy on board for glycemic management CKD III Cr: 1.4 (baseline) Renal function remained stable Continue monitor BMP Stable Hx PROLONGED QTc Avoid QTc prolonging agents Hx A FLUTTER ON COUMADIN Rate control on Normal sinus rhythm. On Coumadin Monitor PT/INR Hx THROMBOCYTOPENIA Platelet count within normal limit HISTORY CHRONIC DVT RLE On Coumadin Doppler of LE Nonocclusive thrombus in the right posterior tibial and right peroneal veins, consistent with acute deep venous thrombosis. BPH Continue Flomax NECK PAIN MRI C-spine showed moderate multilevel cervical spondylosis Continue tramadol as needed pain Stable DVT Prophylaxis On Coumadin CODE STATUS: DNR/DNI Disposition After discussion family member Palliative care consulted We will continue to work with social service and family members for appropriate discharge planning for this unfortunate elderly gentleman Vital Signs: Date Time Temp Pulse Resp B/P (MAP) Pulse Ox O2 Delivery O2 Flow Rate FiO2 02/10/18 16:00 95 High Flow Oxygen 50.0 50 02/10/18 15:23 36.4 66 20 125/70 (88) 95 50.0 48 02/10/18 12:00 95 High Flow Oxygen 50.0 50 02/10/18 11:45 36.8 70 20 148/69 (95) 83 High Flow Oxygen 02/10/18 08:00 95 High Flow Oxygen 50.0 50 02/10/18 07:11 36.6 86 20 118/65 (82) 95 High Flow Oxygen 50.0 50 02/10/18 07:04 68 16 92 Nasal Cannula 50.0 60 02/10/18 04:19 36.6 65 20 114/56 (75) 94 High Flow Oxygen 50.0 50 02/10/18 04:00 High Flow Oxygen 50.0 50 02/10/18 01:58 64 16 96 Nasal Cannula 50.0 60 02/10/18 00:00 High Flow Oxygen 50.0 70 02/09/18 22:48 36.6 68 20 112/62 (79) 96 High Flow Oxygen 50.0 70 02/09/18 20:00 High Flow Oxygen 50.0 70 02/09/18 19:09 36.4 70 20 115/66 (82) 95 High Flow Oxygen 50.0 02/09/18 18:55 68 20 97 Nasal Cannula 50.0 70 Lab Results: Results Past 24 Hours Test 02/09/18 19:47 02/10/18 05:56 02/10/18 07:33 02/10/18 09:02 Range/Units Bedside Glucose 174 63 111 70-99 mg/dl White Blood Count 19.04 4.8-10.8 K/uL Red Blood Count 3.86 4.7-6.1 M/uL Hemoglobin 11.4 14.0-18.0 g/dL Hematocrit 35.9 42-52 % Mean Corpuscular Volume 93.0 80-100 fL Mean Corpuscular Hemoglobin 29.5 25-34 pg Mean Corpuscular Hemoglobin Concent 31.8 32-36 g/dl RDW Standard Deviation 56.1 36.4-46.3 fL RDW Coefficient of Variation 16.6 11.5-14.5 % Platelet Count 266 130-400 K/uL Mean Platelet Volume 9.1 7.4-10.4 fL Prothrombin Time 25.1 9.0-12.0 SECONDS Prothromb Time International Ratio 2.4 0.9-1.1 Creatinine 1.25 0.60-1.40 mg/dl Est Creatinine Clear Calc Drug Dose 45.8 ml/min Estimated GFR () 60.0 Estimated GFR (Non- 51.8 Test 02/10/18 11:06 02/10/18 16:22 Range/Units Bedside Glucose 139 115 70-99 mg/dl
[2018-02-10] MEDS: METHYLPREDNISOLONE IV 80 MG in SYRINGE 0 ML IV SCH ×2 (18:26→23:42)
--- NOTE | 2018-02-10 20:35 | Pulmonology Progress Note ---
Pulmonary Progress Note Date of Service Feb 10, 2018. Attending Dr. Montelongo Subjective The patient is hard of hearing, limitation to review of system was noted. However the patient continues to have shortness of breath, poor oral intake, remains on high flow oxygen. Objective His physical exam on 02/08/2018 revealed vital signs are still borderline with FiO2 of 75% to keep his O2 sat above than 90%. No JVP, S1-S2 regular rate and rhythm, scattered crackles bilaterally, abdomen is benign no edema. CAT scan of the chest was reviewed which showed multiple areas of interstitial changes as well as airspace disease with bilateral pleural effusion. It has been worsening compared to the CAT scan from a month ago. His laboratory also were reviewed which showed INR of 4.2. His physical exam on 02/09/2018 revealed vital signs are stable although saturation reported at 100% on 70%. S1-S2, regular rate and rhythm, distant crackles bilaterally, abdomen is benign, no edema. INR is 3.3. Physical exam on 02/10/2018 revealed elderly gentleman, does not have any JVP, vital signs remains borderline however his O2 sats 94% on 50% to 50 L via high flow heated oxygen. S1-S2 regular rate and rhythm with crackles bilaterally. Abdomen is benign no edema. Ultrasound was done at the bedside by me which did not reveal significant amount of pleural effusion. Assessment & Plan 1. ARDS, requiring high flow oxygen. 2. Multilobar pneumonia with developing bilateral pleural effusion. Although it appeared to be inflammatory rather than infectious pneumonia. 3. The findings on the CAT scan concerning for ongoing interstitial lung disease such as AIP, NSIP rather than just infectious process. I have done an ultrasound today on the patient also which showed scant amount of pleural effusion. 4. Bilateral pleural effusion can be described as small. 5. Left upper lobe nodule. 6. DVT. Plan: 1. I have had a long discussion with the patient's and son and I showed him also the CAT scans. They are leaning towards taking the patient home on high flow oxygen and expecting him to be more comfortable in his own bed. However I would not be able to accommodate that at this point as the patient is requiring high flow oxygen. They agreed on increasing the dose of the steroids and give the patient last chance of high-dose steroids in which I increase it the Solu-Medrol to 80 mg every 6 hours. 2. Continue diuresis . 3. Continue with a high flow oxygen. Decrease FiO2 by 10% every hours as tolerated to keep O2 sat above than 85%. Hopefully would be able to transition the patient to low flow nasal cannula. 4. BiPAP 12/5 every night from 10 PM to 7A. The patient is not tolerating it very well. 5. Continue with a high flow oxygen during the daytime. 6. Ideally a lung biopsy would be diagnostic but the patient is not willing to do so and the risk of the procedure is high. 7. Oral intake has been suboptimal in this patient, he would benefit from a booster drink. 8. Hold Coumadin. INR is 3.3. 9. Patient is DNR. Thank you, will follow. Data Medications: Current Inpatient Medications Medications (Trade) Dose Ordered Sig/Krystal Route Start Time Stop Time Status Last Admin Dose Admin Acetaminophen (Tylenol Tab) 650 mg Q4H PRN PO 01/31/18 13:15 03/02/18 13:14 02/03/18 04:09 650 MG Nitroglycerin (Nitrostat Tab) 0.4 mg UD PRN SL 01/31/18 13:15 03/02/18 13:14 Miscellaneous Information (Consult) 1 ea UD PRN N/A 01/31/18 13:30 03/02/18 13:29 Insulin Aspart (novoLOG ASPART) SLIDING SCALE If C... ACHS SC 01/31/18 16:00 03/02/18 15:59 02/10/18 17:37 13 UNITS Glucose (Glucose 40% Gel) 15-30 GRAMS 15 GRAMS... UD PRN PO 01/31/18 14:15 03/02/18 14:14 Glucose (Glucose Chew Tab) 4-8 Tablets 4 Tabl... UD PRN PO 01/31/18 14:15 03/02/18 14:14 Dextrose (Dextrose 50% 50ML Syringe) 25-50ML OF 50% DW IV FOR... UD PRN IV 01/31/18 14:15 03/02/18 14:14 Glucagon (Glucagon Inj) 1 mg UD PRN SQ 01/31/18 14:15 03/02/18 14:14 Miscellaneous Information (Consult Glycemic Management Pharmacy) 1 ea UD PRN N/A 01/31/18 14:31 03/02/18 14:30 Pantoprazole Sodium (Protonix Tab) 40 mg DAILY PO 02/01/18 09:00 03/03/18 08:59 02/10/18 09:47 40 MG Tamsulosin HCl (Flomax Cap) 0.4 mg HS PO 01/31/18 21:00 03/02/18 20:59 02/09/18 20:45 0.4 MG Tramadol HCl (Ultram Tab) 50 mg Q4H PRN PO 01/31/18 14:30 03/02/18 14:29 Cholecalciferol (Vitamin D Tab) 2,000 inter.unit DAILY PO 02/01/18 09:00 03/03/18 08:59 02/10/18 09:48 2,000 INTER.UNIT Ipratropium [place] (Atrovent 0.02% 0.5MG/2.5ML Neb) 0.5 mg Q6R INH 01/31/18 21:00 03/02/18 20:59 02/10/18 19:40 0.5 MG Levalbuterol (Xopenex 1.25MG/ 0.5ML Neb) 1.25 mg Q6R INH 01/31/18 21:00 03/02/18 20:59 02/10/18 19:40 1.25 MG Ipratropium [place] (Atrovent 0.02% 0.5MG/2.5ML Neb) 0.5 mg Q4H PRN INH 01/31/18 16:00 03/02/18 15:59 Levalbuterol (Xopenex 0.63 Mg/ 3 Ml Neb) 0.63 mg Q4H PRN INH 01/31/18 16:00 03/02/18 15:59 Piperacillin Sod/ Tazobactam Sod 3.375 gm/Sodium Chloride 115 ml @ 28.75 mls/ hr Q8H IV 01/31/18 17:00 02/10/18 23:59 02/10/18 17:26 28.75 MLS/HR Magnesium Hydroxide (Milk Of Magnesia Susp) 30 ml Q12H PRN PO 01/31/18 16:30 03/02/18 16:29 Dornase [place] (Pulmozyme Inhalation Soln 2.5ml Amp) 2.5 ml BIDR INH 01/31/18 20:00 03/02/18 19:59 02/10/18 19:50 2.5 ML Guaifenesin (Robitussin Sugar Free Syrup) 100 mg Q6H PRN PO 02/01/18 22:15 03/03/18 22:14 02/03/18 04:09 100 MG Enteral Nutritional Formula (Boost Glucose Control) 1 can TIDM PO 02/03/18 09:00 03/05/18 07:59 02/10/18 17:25 1 CAN Warfarin Sodium (Coumadin Tab) 2 mg DAILY@16 PO 02/07/18 16:00 03/04/18 15:59 Future hold 02/10/18 17:26 2 MG Insulin Glargine (Lantus Solostar Pen) 15 units BID SC 02/10/18 21:00 03/08/18 08:59 Methylprednisolone Sodium Succinate 80 mg/Syringe 1.28 ml @ 1.5 mls/min Q6 IV 02/10/18 18:00 03/06/18 20:59 02/10/18 18:26 1.5 MLS/MIN I & O: 24-Hour Column 02/11/18 08:00 Intake Total 240 ml Output Total 200 ml Balance 40 ml Vital Signs: Date Time Temp Pulse Resp B/P (MAP) Pulse Ox O2 Delivery O2 Flow Rate FiO2 02/10/18 19:50 70 16 94 Nasal Cannula 50.0 50 02/10/18 19:30 36.7 67 18 127/66 (86) 92 High Flow Oxygen 02/10/18 16:00 95 High Flow Oxygen 50.0 50 02/10/18 15:23 36.4 66 20 125/70 (88) 95 50.0 48 02/10/18 12:00 95 High Flow Oxygen 50.0 50 02/10/18 11:45 36.8 70 20 148/69 (95) 83 High Flow Oxygen 02/10/18 08:00 95 High Flow Oxygen 50.0 50 02/10/18 07:11 36.6 86 20 118/65 (82) 95 High Flow Oxygen 50.0 50 02/10/18 07:04 68 16 92 Nasal Cannula 50.0 60 02/10/18 04:19 36.6 65 20 114/56 (75) 94 High Flow Oxygen 50.0 50 02/10/18 04:00 High Flow Oxygen 50.0 50 02/10/18 01:58 64 16 96 Nasal Cannula 50.0 60 02/10/18 00:00 High Flow Oxygen 50.0 70 02/09/18 22:48 36.6 68 20 112/62 (79) 96 High Flow Oxygen 50.0 70 Laboratory Results: Last 24 Hours Test 02/10/18 05:56 02/10/18 07:33 02/10/18 09:02 02/10/18 11:06 White Blood Count 19.04 K/uL Red Blood Count 3.86 M/uL Hemoglobin 11.4 g/dL Hematocrit 35.9 % Mean Corpuscular Volume 93.0 fL Mean Corpuscular Hemoglobin 29.5 pg Mean Corpuscular Hemoglobin Concent 31.8 g/dl RDW Standard Deviation 56.1 fL RDW Coefficient of Variation 16.6 % Platelet Count 266 K/uL Mean Platelet Volume 9.1 fL Prothrombin Time 25.1 SECONDS Prothromb Time International Ratio 2.4 Creatinine 1.25 mg/dl Est Creatinine Clear Calc Drug Dose 45.8 ml/min Estimated GFR () 60.0 Estimated GFR (Non- 51.8 Bedside Glucose 63 mg/dl 111 mg/dl 139 mg/dl Test 02/10/18 16:22 Bedside Glucose 115 mg/dl
[2018-02-10] MEDS: TAMSULOSIN HCL 0.4 MG CAP PO SCH (21:49)
[2018-02-11] VITALS (9 sets, daily range): BP systolic 112–143; BP diastolic 55–76; PULSE 60–79; TEMP 36.3–36.8; O2SAT 74–95
[2018-02-11] MEDS: IPRATROPIUM BROMIDE NEB SOLN 0.02% 2.5 ML VIAL INH SCH ×4 (01:58→18:49)
[2018-02-11] MEDS: LEVALBUTEROL 1.25MG/0.5ML NEB INH SCH ×4 (01:58→18:49)
[2018-02-11] MEDS: METHYLPREDNISOLONE IV 80 MG in SYRINGE 0 ML IV SCH ×4 (05:19→23:42)
[2018-02-11] MEDS: DORNASE ALFA 2.5 ML AMP INH SCH ×2 (07:06→18:49)
[2018-02-11 07:33] LABS: INR 2.3 (0.9-1.1)
[2018-02-11] MEDS: BOOST GLUCOSE CONTROL PO SCH ×3 (08:00→16:31)
[2018-02-11] MEDS: CHOLECALCIFEROL 1000 INTER.UNIT TAB PO SCH (08:55)
[2018-02-11] MEDS: PANTOprazole SOD 40 MG TAB PO SCH (08:55)
[2018-02-11] MEDS: INSULIN GLARGINE SOLOSTAR 100 UNITS/ML 3 ML PEN SC SCH ×2 (08:59→21:31)
[2018-02-11] MEDS: INSULIN ASPART 100 UNITS/ML 3 ML PEN SC SCH ×4 (08:59→21:30)
--- NOTE | 2018-02-11 09:46 | Pharmacy Progress Note ---
Pharmacy Glycemic Sign Off Nt Date of Service Feb 11, 2018. Assessment & Plan ASSESSMENT: * Pharmacy has been managing patient's glycemic control regimen. * BSGs have been stable, but trending slightly low in the morning. * SoluMedrol was increased from 40mg q12h --> 80mg q6h * Patient is now palliative, and pharmacy has been notified that we may sign off. PLAN FOR INPATIENT GLYCEMIC CONTROL: * Consider reducing Lantus dose to prevent hypoglycemic episodes. * Pharmacy is signing off of glycemic consult and will no longer be making adjustments to inpatient regimen. Please feel free to re-consult if needed. Thank you.
[2018-02-11] MEDS: WARFARIN SOD 2 MG TAB PO SCH (16:31)
--- NOTE | 2018-02-11 16:39 | Palliative Care Consultation ---
Consultation Date of Consultation: Feb 11, 2018. Requesting Physician: Dr Meneses Attending Physician: Dr Meneses Reason for Consultation: To address goals of care History of Present Illness Patient is an 87-year-old male who has either been in the hospital or rehab since the end of November. Patient was hospitalized from December 15 - January 17 for MSSA PNA and Flu A -he was then discharged to [facility] and by report had been improving some until approximately January 28 when he began having increased shortness of breath, cough, temp to 100.4 and increased O2 requirement. Patient was readmitted on 01/31. Patient's chest x-ray has not shown any significant change despite treatment for pneumonia, pulmonary suspects a possible inflammatory cause to patient's findings on chest x-ray and hypoxia. Patient currently is on high flow oxygen at 50 L/min, he is to have a trial of BiPAP overnight tonight. Patient reports that he thinks he has improved over the past 60 days but still notes shortness of breath even on high flow O2. Attempted to call at the home number, there was no answer. Plan to meet with patient and on Wednesday to discuss treatment options. Patient will not be able to return home or go to another facility while he requires high flow O2. If patient can be transitioned to BiPAP and oxygen via nasal cannula or 100% nonrebreather mask that it may be possible to get him home possibly with hospice. Past Medical/Surgical History Medical History: DM, prolonged QT, a fib/flutter, HTN, CKD stage III, decreased LVEF, chronic DVT , BPH with outflow obstruction, elevated PSA Surgical History: Cataract, hernia repair, prostate biopsy Family History Positive for diabetes Social History Smoking Status: Former Smoker History of Alcohol Use: Yes (about 1 beer per month) Drug Use: none Marital Status: Housing Status: lives with family Occupation Status: retired Most of history was obtained through medical records as patient is too short of breath to give a detailed history. Review of Systems Constitutional: No fever, No chills ENT: + hearing loss Respiratory: + shortness of breath, + dyspnea at rest Cardiac: No chest pain Abdomen: No pain Musculoskeletal: + problem reported (Weakness) Neurologic: + weakness Psychiatric: No anxiety Endo: + fatigue Allergies Coded Allergies: No Known Allergies (Unverified , 05/19/13) Medications Current Inpatient Medications Medications (Trade) Dose Ordered Sig/Krystal Route Start Time Stop Time Status Last Admin Dose Admin Acetaminophen (Tylenol Tab) 650 mg Q4H PRN PO 01/31/18 13:15 03/02/18 13:14 02/03/18 04:09 650 MG Nitroglycerin (Nitrostat Tab) 0.4 mg UD PRN SL 01/31/18 13:15 03/02/18 13:14 Insulin Aspart (novoLOG ASPART) SLIDING SCALE If C... ACHS SC 01/31/18 16:00 03/02/18 15:59 02/11/18 13:01 10 UNITS Glucose (Glucose 40% Gel) 15-30 GRAMS 15 GRAMS... UD PRN PO 01/31/18 14:15 03/02/18 14:14 Glucose (Glucose Chew Tab) 4-8 Tablets 4 Tabl... UD PRN PO 01/31/18 14:15 03/02/18 14:14 Dextrose (Dextrose 50% 50ML Syringe) 25-50ML OF 50% DW IV FOR... UD PRN IV 01/31/18 14:15 03/02/18 14:14 Glucagon (Glucagon Inj) 1 mg UD PRN SQ 01/31/18 14:15 03/02/18 14:14 Pantoprazole Sodium (Protonix Tab) 40 mg DAILY PO 02/01/18 09:00 03/03/18 08:59 02/11/18 08:55 40 MG Tamsulosin HCl (Flomax Cap) 0.4 mg HS PO 01/31/18 21:00 03/02/18 20:59 02/10/18 21:49 0.4 MG Tramadol HCl (Ultram Tab) 50 mg Q4H PRN PO 01/31/18 14:30 03/02/18 14:29 Cholecalciferol (Vitamin D Tab) 2,000 inter.unit DAILY PO 02/01/18 09:00 03/03/18 08:59 02/11/18 08:55 2,000 INTER.UNIT Ipratropium [place] (Atrovent 0.02% 0.5MG/2.5ML Neb) 0.5 mg Q6R INH 01/31/18 21:00 03/02/18 20:59 02/11/18 14:21 0.5 MG Levalbuterol (Xopenex 1.25MG/ 0.5ML Neb) 1.25 mg Q6R INH 01/31/18 21:00 03/02/18 20:59 02/11/18 14:21 1.25 MG Ipratropium [place] (Atrovent 0.02% 0.5MG/2.5ML Neb) 0.5 mg Q4H PRN INH 01/31/18 16:00 03/02/18 15:59 Levalbuterol (Xopenex 0.63 Mg/ 3 Ml Neb) 0.63 mg Q4H PRN INH 01/31/18 16:00 03/02/18 15:59 Magnesium Hydroxide (Milk Of Magnesia Susp) 30 ml Q12H PRN PO 01/31/18 16:30 03/02/18 16:29 Dornase [place] (Pulmozyme Inhalation Soln 2.5ml Amp) 2.5 ml BIDR INH 01/31/18 20:00 03/02/18 19:59 02/11/18 07:06 2.5 ML Guaifenesin (Robitussin Sugar Free Syrup) 100 mg Q6H PRN PO 02/01/18 22:15 03/03/18 22:14 02/03/18 04:09 100 MG Enteral Nutritional Formula (Boost Glucose Control) 1 can TIDM PO 02/03/18 09:00 03/05/18 07:59 02/11/18 12:00 1 CAN Warfarin Sodium (Coumadin Tab) 2 mg DAILY@16 PO 02/07/18 16:00 03/04/18 15:59 Future hold 02/10/18 17:26 2 MG Insulin Glargine (Lantus Solostar Pen) 15 units BID SC 02/10/18 21:00 03/08/18 08:59 02/11/18 08:59 15 UNITS Methylprednisolone Sodium Succinate 80 mg/Syringe 1.28 ml @ 1.5 mls/min Q6 IV 02/10/18 18:00 03/06/18 20:59 02/11/18 12:59 1.5 MLS/MIN Physical Exam Date Time Temp Pulse Resp B/P (MAP) Pulse Ox O2 Delivery O2 Flow Rate FiO2 02/11/18 16:00 High Flow Oxygen 50.0 50 02/11/18 14:56 36.3 71 20 112/57 (75) 94 High Flow Oxygen 15.0 02/11/18 14:21 79 18 88 Nasal Cannula 50.0 50 02/11/18 12:00 High Flow Oxygen 50.0 50 02/11/18 11:45 36.5 69 18 131/76 (94) 90 High Flow Oxygen 02/11/18 08:00 High Flow Oxygen 50.0 50 02/11/18 07:38 36.7 73 20 122/68 (86) 92 High Flow Oxygen 70.0 02/11/18 07:09 76 20 74 Nasal Cannula 50.0 50 02/11/18 04:29 36.8 64 18 143/72 (95) 95 High Flow Oxygen 50.0 50 02/11/18 04:00 High Flow Oxygen 50.0 50 02/11/18 01:58 60 16 94 Nasal Cannula 50.0 50 02/11/18 00:00 High Flow Oxygen 50.0 50 02/10/18 23:36 36.9 67 18 129/70 (89) 95 High Flow Oxygen 50.0 50 02/10/18 20:00 High Flow Oxygen 50.0 50 02/10/18 19:50 70 16 94 Nasal Cannula 50.0 50 02/10/18 19:30 36.7 67 18 127/66 (86) 92 High Flow Oxygen General Appearance: + mild distress (Due to shortness of breath) Eyes: EOMI ENT: + pertinent finding (Wears hearing aids, speech is clear) Respiratory: + decreased breath sounds, + pertinent finding (On high flow 02 at 50 L/min) Cardiovascular: regular rate, rhythm, + pertinent finding (Pedal edema on the right) Abdomen: soft Musculoskeletal: abnormal strength Neurologic/Psychiatric: alert, + pertinent finding (Fatigue) Skin: warm/dry, + pallor Laboratory Results Last 24 Hours Test 02/10/18 21:20 02/11/18 06:53 02/11/18 07:33 02/11/18 08:31 Bedside Glucose 82 mg/dl 69 mg/dl 128 mg/dl Prothrombin Time 23.7 SECONDS Prothromb Time International Ratio 2.3 Test 02/11/18 11:46 Bedside Glucose 188 mg/dl Assessment & Plan Palliative Performance Scale: 30 % (1) Hypoxia Status: Chronic Assessment & Plan: Patient requiring O2 therapy for greater than 2 months, now requiring high flow nasal cannula at 50 L/min. To start a trial of BiPAP (2) Dyspnea Status: Acute Assessment & Plan: Patient still reports symptoms of shortness of breath despite 15 L high flow nasal cannula. (3) Palliative care encounter Status: Acute Assessment & Plan: No family at bedside to discuss goals of care or treatment options at this point. Called 's home number, left message. Will follow up with patient and family on Wednesday. Counseling and Coordination Total time 55 minutes with greater than 50% of time spent at bedside in on unit reviewing chart and obtaining history from patient.
--- NOTE | 2018-02-11 17:22 | Progress Note ---
Internal Med Progress Note Date of Service: Feb 11, 2018. Provider Documentation: SUBJECTIVE: Respiratory status remains unchanged Requiring high flow O2 OBJECTIVE: Vital Signs-as noted below Exam: General-chronically ill-appearing, on high flow oxygen via nasal, Head- atraumatic Eyes- PERRL, EOMI ENT- oropharynx clear Neck- supple, no JVD Lungs- +Coarse/wheezing BS more in RUL Heart- regular rhythm Abdomen- normal bowel sounds, soft Extremities- no calf tenderness Neuro-oriented to personal, very hard of Skin- warm & dry Lab data as noted below. ASSESSMENT & PLAN: ACUTE HYPOXEMIC RESPIRATORY FAILURE/ARDS Due to hospital acquired pneumonia/leading to worsening purse pulmonary stat Respiratory status remains unchanged, requiring high flow oxygen No improvement of addition of IV steroids/IV Lasix for possible pulmonary congestion Prognosis remains guarded After discussion with pulmonology/family members-palliative care consult requested Family wants patient to return home with hospice care, if his life expectancy is limited/chance of recovery remains extremely poor Patient will not be able to be discharged home or skilled rehab versus jail with hospice due to high oxygen requirement Pulmonology following patient Appreciate input requiring 75% FiO2 with 60 L of oxygen via high flow. he did not tolerate the BiPAP overnight. CXR showed right basilar interstitial thickening persists. Left upper lobe nodular airspace opacity is also noted IMPRESSION: 1. Multifocal multilobar distribution of groundglass and consolidative opacities demonstrate central air bronchograms and have progressively worsened from comparison chest CT 01/01/2018 suggesting pneumonia with small to moderate bilateral pleural effusions. 2. Background emphysema with chronic subpleural reticular opacities. 3. Mild mediastinal adenopathy, likely reactive. ABG done suggest no CO2 retention, but elevated AA gradient Possible interstitial lung disease Concern for recurrent aspiration-diet change to dental soft with aspiration precaution CXR showed no significant change in the dense consolidation of the right upper lung and lung bases, left greater than right. ECHO * The left ventricle is normal in size. * There is mild concentric left ventricular hypertrophy. * Ejection Fraction = 55-60%. * The right ventricle is normal size. * The right ventricular systolic function is normal. * The left atrial size is normal. * Right atrial size is normal. * There is trace tricuspid regurgitation. * There is no evidence of pulmonary hypertension. The PA systolic pressure is less than 36 mmHg. 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 On Coumadin Monitor PT/INR Hx THROMBOCYTOPENIA Platelet count within normal limit HISTORY CHRONIC DVT RLE On Coumadin Doppler of LE Nonocclusive thrombus in the right posterior tibial and right peroneal veins, consistent with acute deep venous thrombosis. BPH Continue Flomax NECK PAIN MRI C-spine showed moderate multilevel cervical spondylosis Continue tramadol as needed pain Stable DVT Prophylaxis On Coumadin CODE STATUS: DNR/DNI Disposition After discussion family member-wants to lean toward hospice palliative care/ family does not want patient to suffer anymore Palliative care consulted Goal is to have patient return home with hospice mentions: In the past multiple times patient mentioned he never spend his final days in a jail Vital Signs: Date Time Temp Pulse Resp B/P (MAP) Pulse Ox O2 Delivery O2 Flow Rate FiO2 02/12/18 16:00 High Flow Oxygen 02/12/18 14:12 68 18 92 Mask 10.0 02/12/18 11:06 36.6 71 18 128/72 (90) 91 Mask 10.0 02/12/18 08:00 High Flow Oxygen BiPAP 02/12/18 07:41 36.9 67 18 121/72 (88) 93 Room Air 02/12/18 07:20 120 18 91 Nasal Cannula 50.0 50 02/12/18 04:32 36.2 68 20 116/69 (85) 91 BiPAP 02/12/18 04:00 BiPAP 02/12/18 02:07 66 93 50 02/12/18 02:06 66 22 93 BiPAP/CPAP 50 02/12/18 00:39 61 92 50 02/12/18 00:12 36.6 65 20 138/63 (88) 92 High Flow Oxygen 02/12/18 00:00 BiPAP 02/11/18 20:05 36.8 75 20 126/55 (78) 93 High Flow Oxygen 02/11/18 20:00 High Flow Oxygen 50.0 50 Lab Results: Results Past 24 Hours Test 02/11/18 20:46 02/12/18 07:29 02/12/18 07:35 02/12/18 11:20 Range/Units Bedside Glucose 191 78 122 70-99 mg/dl Prothrombin Time 22.2 9.0-12.0 SECONDS Prothromb Time International Ratio 2.1 0.9-1.1 Test 02/12/18 16:50 Range/Units Bedside Glucose 184 70-99 mg/dl
--- NOTE | 2018-02-11 18:53 | Pulmonology Progress Note ---
Pulmonary Progress Note Date of Service Feb 11, 2018. Attending Dr. Montelongo Subjective The patient refused the BiPAP overnight, he continued to be on heated high flow oxygen, the patient did not have any chest pain but he does have significant shortness of breath. Objective His physical exam on 02/08/2018 revealed vital signs are still borderline with FiO2 of 75% to keep his O2 sat above than 90%. No JVP, S1-S2 regular rate and rhythm, scattered crackles bilaterally, abdomen is benign no edema. CAT scan of the chest was reviewed which showed multiple areas of interstitial changes as well as airspace disease with bilateral pleural effusion. It has been worsening compared to the CAT scan from a month ago. His laboratory also were reviewed which showed INR of 4.2. His physical exam on 02/09/2018 revealed vital signs are stable although saturation reported at 100% on 70%. S1-S2, regular rate and rhythm, distant crackles bilaterally, abdomen is benign, no edema. INR is 3.3. Physical exam on 02/10/2018 revealed elderly gentleman, does not have any JVP, vital signs remains borderline however his O2 sats 94% on 50% to 50 L via high flow heated oxygen. S1-S2 regular rate and rhythm with crackles bilaterally. Abdomen is benign no edema. Ultrasound was done at the bedside by me which did not reveal significant amount of pleural effusion. Physical exam of 02/11/2018 revealed increasing shortness of breath although his O2 saturation has been improving and currently he is 95% on 50% with 50 L. S1- S2 regular rate and rhythm. Crackles bilaterally. Abdomen is benign no edema. Assessment & Plan 1. ARDS, requiring high flow oxygen. 2. Multilobar pneumonia with developing bilateral pleural effusion. Pleural effusion has improved significantly. 3. The findings on the CAT scan concerning for ongoing interstitial lung disease such as AIP, NSIP rather than just infectious process. I have done an ultrasound today on the patient also which showed scant amount of pleural effusion. 4. Bilateral pleural effusion can be described as small. 5. Left upper lobe nodule. 6. DVT. Plan: 1. In discussion with the patient and his family at the bedside, he agreed to use a BiPAP today. 2. Continue diuresis . 3. Continue with a high flow oxygen. Decrease FiO2 by 10% every hours as tolerated to keep O2 sat above than 85%. His O2 saturation improved even with dropping his FiO2. 4. BiPAP 12/5 every night from 10 PM to 7A. Patient agreed to it. 5. Continue with a high flow oxygen during the daytime. 6. Ideally a lung biopsy would be diagnostic but the patient is not willing to do so and the risk of the procedure is high. 7. Oral intake has been suboptimal in this patient, he would benefit from a booster drink. 8. Resume Coumadin. INR is 2.3 9. Apply incentive spirometry and flutter valve with assistance please. 10. Continue high-dose steroids. Thank you, will follow. Data Medications: Current Inpatient Medications Medications (Trade) Dose Ordered Sig/Krystal Route Start Time Stop Time Status Last Admin Dose Admin Acetaminophen (Tylenol Tab) 650 mg Q4H PRN PO 01/31/18 13:15 03/02/18 13:14 02/03/18 04:09 650 MG Nitroglycerin (Nitrostat Tab) 0.4 mg UD PRN SL 01/31/18 13:15 03/02/18 13:14 Insulin Aspart (novoLOG ASPART) SLIDING SCALE If C... ACHS SC 01/31/18 16:00 03/02/18 15:59 02/11/18 17:58 16 UNITS Glucose (Glucose 40% Gel) 15-30 GRAMS 15 GRAMS... UD PRN PO 01/31/18 14:15 03/02/18 14:14 Glucose (Glucose Chew Tab) 4-8 Tablets 4 Tabl... UD PRN PO 01/31/18 14:15 03/02/18 14:14 Dextrose (Dextrose 50% 50ML Syringe) 25-50ML OF 50% DW IV FOR... UD PRN IV 01/31/18 14:15 03/02/18 14:14 Glucagon (Glucagon Inj) 1 mg UD PRN SQ 01/31/18 14:15 03/02/18 14:14 Pantoprazole Sodium (Protonix Tab) 40 mg DAILY PO 02/01/18 09:00 03/03/18 08:59 02/11/18 08:55 40 MG Tamsulosin HCl (Flomax Cap) 0.4 mg HS PO 01/31/18 21:00 03/02/18 20:59 02/10/18 21:49 0.4 MG Tramadol HCl (Ultram Tab) 50 mg Q4H PRN PO 01/31/18 14:30 03/02/18 14:29 Cholecalciferol (Vitamin D Tab) 2,000 inter.unit DAILY PO 02/01/18 09:00 03/03/18 08:59 02/11/18 08:55 2,000 INTER.UNIT Ipratropium [place] (Atrovent 0.02% 0.5MG/2.5ML Neb) 0.5 mg Q6R INH 01/31/18 21:00 03/02/18 20:59 02/11/18 14:21 0.5 MG Levalbuterol (Xopenex 1.25MG/ 0.5ML Neb) 1.25 mg Q6R INH 01/31/18 21:00 03/02/18 20:59 02/11/18 14:21 1.25 MG Ipratropium [place] (Atrovent 0.02% 0.5MG/2.5ML Neb) 0.5 mg Q4H PRN INH 01/31/18 16:00 03/02/18 15:59 Levalbuterol (Xopenex 0.63 Mg/ 3 Ml Neb) 0.63 mg Q4H PRN INH 01/31/18 16:00 03/02/18 15:59 Magnesium Hydroxide (Milk Of Magnesia Susp) 30 ml Q12H PRN PO 01/31/18 16:30 03/02/18 16:29 Dornase Rafael (Pulmozyme Inhalation Soln 2.5ml Amp) 2.5 ml BIDR INH 01/31/18 20:00 03/02/18 19:59 02/11/18 07:06 2.5 ML Guaifenesin (Robitussin Sugar Free Syrup) 100 mg Q6H PRN PO 02/01/18 22:15 03/03/18 22:14 02/03/18 04:09 100 MG Enteral Nutritional Formula (Boost Glucose Control) 1 can TIDM PO 02/03/18 09:00 03/05/18 07:59 02/11/18 16:31 1 CAN Warfarin Sodium (Coumadin Tab) 2 mg DAILY@16 PO 02/07/18 16:00 03/04/18 15:59 Future hold 02/11/18 16:31 2 MG Insulin Glargine (Lantus Solostar Pen) 15 units BID SC 02/10/18 21:00 03/08/18 08:59 02/11/18 08:59 15 UNITS Methylprednisolone Sodium Succinate 80 mg/Syringe 1.28 ml @ 1.5 mls/min Q6 IV 02/10/18 18:00 03/06/18 20:59 02/11/18 17:58 1.5 MLS/MIN I & O: 24-Hour Column 02/12/18 08:00 Intake Total 360 ml Output Total 50 ml Balance 310 ml Vital Signs: Date Time Temp Pulse Resp B/P (MAP) Pulse Ox O2 Delivery O2 Flow Rate FiO2 02/11/18 16:00 High Flow Oxygen 50.0 50 02/11/18 14:56 36.3 71 20 112/57 (75) 94 High Flow Oxygen 15.0 02/11/18 14:21 79 18 88 Nasal Cannula 50.0 50 02/11/18 12:00 High Flow Oxygen 50.0 50 02/11/18 11:45 36.5 69 18 131/76 (94) 90 High Flow Oxygen 02/11/18 08:00 High Flow Oxygen 50.0 50 02/11/18 07:38 36.7 73 20 122/68 (86) 92 High Flow Oxygen 70.0 02/11/18 07:09 76 20 74 Nasal Cannula 50.0 50 02/11/18 04:29 36.8 64 18 143/72 (95) 95 High Flow Oxygen 50.0 50 02/11/18 04:00 High Flow Oxygen 50.0 50 02/11/18 01:58 60 16 94 Nasal Cannula 50.0 50 02/11/18 00:00 High Flow Oxygen 50.0 50 02/10/18 23:36 36.9 67 18 129/70 (89) 95 High Flow Oxygen 50.0 50 02/10/18 20:00 High Flow Oxygen 50.0 50 02/10/18 19:50 70 16 94 Nasal Cannula 50.0 50 02/10/18 19:30 36.7 67 18 127/66 (86) 92 High Flow Oxygen Laboratory Results: Last 24 Hours Test 02/10/18 21:20 02/11/18 06:53 02/11/18 07:33 02/11/18 08:31 Bedside Glucose 82 mg/dl 69 mg/dl 128 mg/dl Prothrombin Time 23.7 SECONDS Prothromb Time International Ratio 2.3 Test 02/11/18 11:46 02/11/18 16:35 Bedside Glucose 188 mg/dl 201 mg/dl
[2018-02-11] MEDS: TAMSULOSIN HCL 0.4 MG CAP PO SCH (21:27)
[2018-02-12] VITALS (9 sets, daily range): BP systolic 116–138; BP diastolic 63–72; PULSE 61–120; TEMP 36.2–36.9; O2SAT 91–93
[2018-02-12] MEDS: IPRATROPIUM BROMIDE NEB SOLN 0.02% 2.5 ML VIAL INH SCH ×3 (02:04→14:12)
[2018-02-12] MEDS: LEVALBUTEROL 1.25MG/0.5ML NEB INH SCH ×3 (02:04→14:12)
[2018-02-12] MEDS: METHYLPREDNISOLONE IV 80 MG in SYRINGE 0 ML IV SCH ×2 (05:51→12:40)
[2018-02-12] MEDS: DORNASE ALFA 2.5 ML AMP INH SCH (07:19)
[2018-02-12 08:09] LABS: INR 2.1 (0.9-1.1)
[2018-02-12] MEDS: INSULIN ASPART 100 UNITS/ML 3 ML PEN SC SCH ×2 (08:47→12:53)
[2018-02-12] MEDS: BOOST GLUCOSE CONTROL PO SCH ×3 (08:48→17:00)
[2018-02-12] MEDS: PANTOprazole SOD 40 MG TAB PO SCH (08:48)
[2018-02-12] MEDS: CHOLECALCIFEROL 1000 INTER.UNIT TAB PO SCH (08:49)
[2018-02-12] MEDS: INSULIN GLARGINE SOLOSTAR 100 UNITS/ML 3 ML PEN SC SCH (08:51)
--- NOTE | 2018-02-12 13:00 | Pulmonology Progress Note ---
Pulmonary Progress Note Date of Service Feb 12, 2018. Attending Dr. Montelongo Subjective The patient is remained lethargic, shortness of breath slightly improving, cough is improving, sleeping most of the time. No events occurred overnight. O2 saturation remains in the 90s. Objective His physical exam on 02/08/2018 revealed vital signs are still borderline with FiO2 of 75% to keep his O2 sat above than 90%. No JVP, S1-S2 regular rate and rhythm, scattered crackles bilaterally, abdomen is benign no edema. CAT scan of the chest was reviewed which showed multiple areas of interstitial changes as well as airspace disease with bilateral pleural effusion. It has been worsening compared to the CAT scan from a month ago. His laboratory also were reviewed which showed INR of 4.2. His physical exam on 02/09/2018 revealed vital signs are stable although saturation reported at 100% on 70%. S1-S2, regular rate and rhythm, distant crackles bilaterally, abdomen is benign, no edema. INR is 3.3. Physical exam on 02/10/2018 revealed elderly gentleman, does not have any JVP, vital signs remains borderline however his O2 sats 94% on 50% to 50 L via high flow heated oxygen. S1-S2 regular rate and rhythm with crackles bilaterally. Abdomen is benign no edema. Ultrasound was done at the bedside by me which did not reveal significant amount of pleural effusion. Physical exam of 02/11/2018 revealed increasing shortness of breath although his O2 saturation has been improving and currently he is 95% on 50% with 50 L. S1- S2 regular rate and rhythm. Crackles bilaterally. Abdomen is benign no edema. Physical exam on 02/12/2018 showed vital signs stable, O2 saturation 91% on 10 L via oxygen mask, S1-S2 regular rate and rhythm, crackles distant mainly at the bases bilaterally, abdomen is benign. Assessment & Plan 1. ARDS, requiring high flow oxygen. 2. Multilobar pneumonia with developing bilateral pleural effusion. Pleural effusion has improved significantly. 3. Acute lung injury, however interstitial pneumonitis such as AIP and NSIP cannot be excluded. 4. Bilateral pleural effusion can be described as small. 5. Left upper lobe nodule. 6. DVT. Plan: 1. Change oxygen to high flow nasal cannula or oxygen mask and titrate to O2 saturation above than 85%. 2. Repeat chest x-ray portable. 3. Continue to use a BiPAP at night and oxygen during the daytime. 4. Encourage the patient to use incentive spirometry. 5. Continue with high-dose steroids. 6. Ideally a lung biopsy would be diagnostic but the patient is not willing to do so and the risk of the procedure is high. 7. Oral intake has been suboptimal in this patient, he would benefit from a booster drink. 8. Resume Coumadin. Thank you, will follow. Data Medications: Current Inpatient Medications Medications (Trade) Dose Ordered Sig/Krystal Route Start Time Stop Time Status Last Admin Dose Admin Acetaminophen (Tylenol Tab) 650 mg Q4H PRN PO 01/31/18 13:15 03/02/18 13:14 02/03/18 04:09 650 MG Nitroglycerin (Nitrostat Tab) 0.4 mg UD PRN SL 01/31/18 13:15 03/02/18 13:14 Insulin Aspart (novoLOG ASPART) SLIDING SCALE If C... ACHS SC 01/31/18 16:00 03/02/18 15:59 02/11/18 21:30 5 UNITS Glucose (Glucose 40% Gel) 15-30 GRAMS 15 GRAMS... UD PRN PO 01/31/18 14:15 03/02/18 14:14 Glucose (Glucose Chew Tab) 4-8 Tablets 4 Tabl... UD PRN PO 01/31/18 14:15 03/02/18 14:14 Dextrose (Dextrose 50% 50ML Syringe) 25-50ML OF 50% DW IV FOR... UD PRN IV 01/31/18 14:15 03/02/18 14:14 Glucagon (Glucagon Inj) 1 mg UD PRN SQ 01/31/18 14:15 03/02/18 14:14 Pantoprazole Sodium (Protonix Tab) 40 mg DAILY PO 02/01/18 09:00 03/03/18 08:59 02/12/18 08:48 40 MG Tamsulosin HCl (Flomax Cap) 0.4 mg HS PO 01/31/18 21:00 03/02/18 20:59 02/11/18 21:27 0.4 MG Tramadol HCl (Ultram Tab) 50 mg Q4H PRN PO 01/31/18 14:30 03/02/18 14:29 Cholecalciferol (Vitamin D Tab) 2,000 inter.unit DAILY PO 02/01/18 09:00 03/03/18 08:59 02/12/18 08:49 2,000 INTER.UNIT Ipratropium [place] (Atrovent 0.02% 0.5MG/2.5ML Neb) 0.5 mg Q6R INH 01/31/18 21:00 03/02/18 20:59 02/12/18 07:19 0.5 MG Levalbuterol (Xopenex 1.25MG/ 0.5ML Neb) 1.25 mg Q6R INH 01/31/18 21:00 03/02/18 20:59 02/12/18 07:19 1.25 MG Ipratropium [place] (Atrovent 0.02% 0.5MG/2.5ML Neb) 0.5 mg Q4H PRN INH 01/31/18 16:00 03/02/18 15:59 Levalbuterol (Xopenex 0.63 Mg/ 3 Ml Neb) 0.63 mg Q4H PRN INH 01/31/18 16:00 03/02/18 15:59 Magnesium Hydroxide (Milk Of Magnesia Susp) 30 ml Q12H PRN PO 01/31/18 16:30 03/02/18 16:29 Dornase Rafael (Pulmozyme Inhalation Soln 2.5ml Amp) 2.5 ml BIDR INH 01/31/18 20:00 03/02/18 19:59 02/12/18 07:19 2.5 ML Guaifenesin (Robitussin Sugar Free Syrup) 100 mg Q6H PRN PO 02/01/18 22:15 03/03/18 22:14 02/03/18 04:09 100 MG Enteral Nutritional Formula (Boost Glucose Control) 1 can TIDM PO 02/03/18 09:00 03/05/18 07:59 02/12/18 08:48 1 CAN Warfarin Sodium (Coumadin Tab) 2 mg DAILY@16 PO 02/07/18 16:00 03/04/18 15:59 Future hold 02/11/18 16:31 2 MG Insulin Glargine (Lantus Solostar Pen) 15 units BID SC 02/10/18 21:00 03/08/18 08:59 02/12/18 08:51 15 UNITS Methylprednisolone Sodium Succinate 80 mg/Syringe 1.28 ml @ 1.5 mls/min Q6 IV 02/10/18 18:00 03/06/18 20:59 02/12/18 05:51 1.5 MLS/MIN Vital Signs: Date Time Temp Pulse Resp B/P (MAP) Pulse Ox O2 Delivery O2 Flow Rate FiO2 02/12/18 11:06 36.6 71 18 128/72 (90) 91 Mask 10.0 02/12/18 08:00 High Flow Oxygen BiPAP 02/12/18 07:41 36.9 67 18 121/72 (88) 93 Room Air 02/12/18 07:20 120 18 91 Nasal Cannula 50.0 50 02/12/18 04:32 36.2 68 20 116/69 (85) 91 BiPAP 02/12/18 04:00 BiPAP 02/12/18 02:07 66 93 50 02/12/18 02:06 66 22 93 BiPAP/CPAP 50 02/12/18 00:39 61 92 50 02/12/18 00:12 36.6 65 20 138/63 (88) 92 High Flow Oxygen 02/12/18 00:00 BiPAP 02/11/18 20:05 36.8 75 20 126/55 (78) 93 High Flow Oxygen 02/11/18 20:00 High Flow Oxygen 50.0 50 02/11/18 18:52 68 18 92 Nasal Cannula 50.0 50 02/11/18 16:00 High Flow Oxygen 50.0 50 02/11/18 14:56 36.3 71 20 112/57 (75) 94 High Flow Oxygen 15.0 02/11/18 14:21 79 18 88 Nasal Cannula 50.0 50 Laboratory Results: Last 24 Hours Test 02/11/18 16:35 02/11/18 20:46 02/12/18 07:29 02/12/18 07:35 Bedside Glucose 201 mg/dl 191 mg/dl 78 mg/dl Prothrombin Time 22.2 SECONDS Prothromb Time International Ratio 2.1 Test 02/12/18 11:20 Bedside Glucose 122 mg/dl
--- NOTE | 2018-02-12 15:15 | DIAGNOSTIC IMAGING REPORT ---
SINGLE VIEW CHEST CLINICAL HISTORY: Hypoxia. ARDS. FINDINGS: An AP, portable, upright chest radiograph is compared to study dated 02/06/2018 and correlated with chest CT dated 02/07/2018. The examination is degraded by portable technique and patient rotation. The cardiomediastinal silhouette is unremarkable. There are small pleural effusions. Multifocal consolidation is again seen, most confluent in the right upper lobe and at the left lung base. A small right-sided pneumothorax is identified. This was not seen on 02/06/2018 no left-sided pneumothorax is seen. The skeletal structures are osteopenic. The bony thorax is grossly intact. IMPRESSION: 1. There is a small right apical pneumothorax, new from 02/06/2018. 2. Multifocal consolidative change is similar in appearance to the 02/06/2018 examination. 3. Bilateral pleural effusions are noted. Electronically signed by: Jonatan Duval M.D. 02/12/2018 3:14 PM Dictated Date/Time: 02/12/2018 3:11 PM
--- NOTE | 2018-02-12 15:31 | Progress Note ---
Progress Note Date of Service Feb 12, 2018. Progress Note CHEST XRAY SHOWS : IMPRESSION: 1. There is a right apical pneumothorax, new from 02/06/2018. 2. Multifocal consolidative change is similar in appearance to the 02/06/2018 examination. 3. Bilateral pleural effusions are noted. Was able to be transitioned to 10 L oxygen via oxygen mask, developed hypoxia, desaturated to 77% Patient was placed back on high oxygen flow very poor prognosis with no improvement of lung parenchyma consolidative changes /development of spontaneous pneumothorax Chest x-ray findings reviewed with pulmonology Dr. Montelongo Order to repeat chest x-ray in the evening If pneumothorax continue to progress leading to tension pneumothorax, standard of care is to place chest tube family discussion with /daughter/son and multiple family members, given the poor prognosis, family decided to not to go for invasive procedure including chest tube placement Want patient to be comfortable only Ordered for comfort care No lab draw, no vital check, no change of position except for patient's comfort Patient will continue with high flow nasal cannula, no report of pain by patient Ordered for as needed IV morphine for pain or shortness of breath Scopolamine patch -to prevent increased secretion-leading to worsening of respiratory distress pt is DNR/DNI Very poor prognosis with limited life expectancy Family wish to have patient return home with hospice care, does not want any transition to care home-as patient multiple times mentioned, he did not want to stay in a care home in his final days Patient's high flow oxygen requirement, prohibiting to discharge home with hospice care Continue to provide inpatient comfort /palliative care
[2018-02-12] MEDS: WARFARIN SOD 2 MG TAB PO SCH (16:26)
[2018-02-12] MEDS ORDERED: ATROPINE SULFATE 1% OP SOLN 2 ML BTL SL PRN (18:15)
[2018-02-12] MEDS: SCOPOLAMINE 1.5 MG TDSY TD SCH (18:33)
[2018-02-12] MEDS ORDERED: LORAZEPAM INJ 0.5 MG in SYRINGE 0.25 ML IV STA (19:36)
[2018-02-12] MEDS ORDERED: LORAZEPAM INJ 1 MG in SYRINGE 0.5 ML IV PRN (19:45)
--- NOTE | 2018-02-12 19:59 | DIAGNOSTIC IMAGING REPORT ---
SINGLE VIEW CHEST CLINICAL HISTORY: Hypoxia. Follow-up pneumothorax. FINDINGS: An AP, portable, upright chest radiograph is compared to study performed earlier the same day 02/12/2018 and correlated with chest CT dated 02/07/2018. The examination is degraded by portable technique and patient rotation. The cardiomediastinal silhouette is unremarkable. There are small pleural effusions. Multifocal airspace consolidation is again seen, most confluent in the right upper lobe and at the left lung base. A small right-sided pneumothorax is unchanged. No left-sided pneumothorax is seen. The skeletal structures are osteopenic. The bony thorax is grossly intact. IMPRESSION: 1. A small right apical pneumothorax is unchanged from today's earlier examination. 2. Multifocal consolidative change is also unchanged from earlier today. 3. Bilateral pleural effusions are noted. Electronically signed by: Jonatan Duval M.D. 02/12/2018 7:58 PM Dictated Date/Time: 02/12/2018 7:56 PM
--- NOTE | 2018-02-13 07:16 | DIAGNOSTIC IMAGING REPORT ---
CHEST ONE VIEW PORTABLE CLINICAL HISTORY: follow up ptx dyspnea COMPARISON STUDY: 02/12/2018 FINDINGS: Small right apical pneumothorax unchanged. Right upper lobe parenchymal infiltrative/consolidative change is unaltered. Bibasilar parenchymal infiltrative changes are stable. Heart remains slightly enlarged. IMPRESSION: No change from the prior study. Unchanging multifocal infiltrates as well as a small right apical pneumothorax. The above report was generated using voice recognition software. It may contain grammatical, syntax or spelling errors. Electronically signed by: Raul Gamez M.D. 02/13/2018 7:14 AM Dictated Date/Time: 02/13/2018 7:14 AM
[2018-02-13] MEDS: CHECK SCOPOLAMINE PATCH PLACEMENT SCH ×4 (08:16→23:31)
[2018-02-13] MEDS: BOOST GLUCOSE CONTROL PO SCH ×3 (08:17→17:40)
[2018-02-13 08:24] VITALS: PULSE 68; O2SAT 81
[2018-02-13] MEDS: MoRPHine SULFATE 2 MG/ML CARP IV PRN ×5 (09:19→20:32)
--- NOTE | 2018-02-13 21:13 | Progress Note ---
Internal Med Progress Note Date of Service: Feb 13, 2018. Provider Documentation: SUBJECTIVE: Respiratory status remains unchanged Requiring high flow O2 More lethargic today Unable to transition to face mask, patient desaturates to 60-70% on the 10 L oxygen via face Per discussions with family members by myself and pulmonology Dr. Montelongo Very poor prognosis in setting of respiratory failure/ARDS/evidence of new right upper lobe pneumothorax Family decided for hospice/comfort care Need to take patient home with hospice, as patient is totally dependent on high flow oxygen Discharge home is not possible Also high flow oxygen requirement will preclude him for home hospice Family wants patient to be comfortable only No lab draw, no vital checks, Ordered for comfort care, patient is DNR/DNI On IV morphine 1 mg every hour as needed, scopolamine patch/sublingual atropine drop as needed for increased secretions Multiple family members present at bedside Updated status OBJECTIVE: Vital Signs-as noted below Exam: General-lethargic on high flow oxygen Lungs diffuse wheeze/rales in all lung mohr, very poor air entry Heart-tachycardia Abdomen- normal bowel sounds, soft Neuro: Lethargic, requiring intermittent IV morphine, no obvious sign of distress noted Lab data as noted below. ASSESSMENT & PLAN: ACUTE HYPOXEMIC RESPIRATORY FAILURE/ARDS End-stage/terminal status No improvement of addition of IV steroids/IV Lasix Prognosis remains guarded Chest x-ray shows no change in consolidative infiltrate on lung field/with right upper lobe pneumothorax Serial chest x-ray showed no change in the size of pneumothorax Pulmonology discussed the case with family members: Placing a chest tube will not provide any improvement from overall respiratory failure Since life expectancy/prognosis remains extremely poor After discussion with pulmonology/family members-palliative care consult requested Family wants patient to return home with hospice care, if his life expectancy is limited/chance of recovery remains extremely poor Patient will not be able to be discharged home or skilled rehab versus [facility] with hospice due to high oxygen requirement Attempt done to transition patient to face mask Patient developed severe shortness of breath/desaturates quickly to 60-75% on 10 L oxygen via face mask Prognosis is very grim CODE STATUS: DNR/DNI Disposition After discussion family member-wants to lean toward hospice palliative care/ family does not want patient to suffer anymore Palliative care consulted appreciate input Goal is to have patient return home with hospice mentions: In the past multiple times patient mentioned he never spend his final days in a [facility] Given requirement for high flow oxygen-patient cannot be transferred to [facility] with hospice/not suitable to discharge home with hospice Option will be increased the morphine to counter symptoms of shortness of breath /dyspnea dyspnea Transitioned to nonrebreather mask on comfort care Recommend transition to inpatient hospice- as likelihood of patients developing rapid respiratory decompensation causing cardiopulmonary arrest without the support of high flow oxygen remains very high Vital Signs: Date Time Temp Pulse Resp B/P (MAP) Pulse Ox O2 Delivery O2 Flow Rate FiO2 02/14/18 09:30 High Flow Oxygen 50.0 60 02/14/18 00:05 High Flow Oxygen 50.0 60 02/13/18 20:05 High Flow Oxygen 50.0 60
[2018-02-14] MEDS: MoRPHine SULFATE 2 MG/ML CARP IV PRN ×4 (06:50→21:13)
[2018-02-14] MEDS ORDERED: TAMSULOSIN HCL 0.4 MG CAP PO SCH (08:00)
[2018-02-14] MEDS: CHECK SCOPOLAMINE PATCH PLACEMENT SCH ×3 (08:15→23:51)
[2018-02-14] MEDS: BOOST GLUCOSE CONTROL PO SCH ×3 (08:15→17:27)
--- NOTE | 2018-02-14 09:55 | Palliative Care Progress Note ---
Palliative Care Progress Note Date of Service Feb 14, 2018. Subjective Pt evaluation today including: conversation w/ patient, conversation w/ family , physical exam Pain: appears comfortable PO Intake: minimal - prefers Boost Patient evaluated today for follow up. Patient currently is on high flow oxygen at 50 L/min - patient with significant discomfort when Hi-Yves is taken off. Patient is requiring IV Morphine for air hunger. Patient has a Scopolamine patch on for secretions. In assessing the patient, the patient states that he is having a hard time breathing, but answers questions appropriately. Per the family, his appetite has decreased and he is only preferring 'Boost". We discussed having his diet changed to full liquid as chewing may be uncomfortable for the patient. Per the family, he has instances where he is ' hallucinating' and appears 'not to be here'. Currently, I suspect the patient will not be able to return home due to the need of his Hi-Yves.Upon assessment, patient with furrowed brow and appears uncomfortable. Patient currently has an order for Morphine Q1 PRN, will add Roxanol as well for air hunger as this may benefit due to respiratory failure. Nursing mentioned that the patient is ' fixated' on going to the bathroom. When I was in the room, the patient voided in a urinal 150mL of clear yellow urine. Discussed bladder scanning if necessary with the family and condom catheter placement if restlessness continues. I spoke with the family, including his of 66 years, [place]a and they have stated that the no longer want to take him home. I explained inpatient hospice to the family and will have case management explain more to them. Review of Systems Pt states that he is does not have any acute pain, but feels that he is struggling to breathe. Patient denies CP, palpitations, anxiety, abdominal pain , N/V/D. Objective Vital Signs Date Time Temp Pulse Resp B/P (MAP) Pulse Ox O2 Delivery O2 Flow Rate FiO2 02/14/18 00:05 High Flow Oxygen 50.0 60 02/13/18 20:05 High Flow Oxygen 50.0 60 02/13/18 16:00 High Flow Oxygen 50.0 60 Physical Exam General Appearance: + mild distress (patient with facial grimacing with breathing) Neck: no JVD Respiratory/Chest: chest non-tender, + wheezing (wheezing B/L throughout lung mohr) Cardiovascular: regular rate, rhythm, no edema, no JVD Abdomen: normal bowel sounds, non tender, soft Neurologic/Psychiatric: alert, + pertinent finding (patient answered questions appropriately. Pt is oriented to self and place, not confident on how much of the current situation he understands/processes.) Skin: warm/dry Assessment and Plan Palliative Care Encounter Respiratory Failure [facility] acquired Pneumonia Palliative Care recommendations: -Comfort care only -D/C current diet and order FULL LIQUID diet - patient with decreased appetite, may tolerate liquids -Patient initially was to return home on Hospice - family has decided to remain in the hospital - will discuss with Case management to provide Hospice agency options - I suspect pt will qualify with the current Hi-Yves O2 needs for comfort and increasing Morphine requirements - may require Morphine gtt. -Add Roxanol 10mg/1mL. Administer 5mg po Q2 PRN for air hunger and comfort. -Continue Scopolamine patch for secretions -Continue to offer familial and patient support Palliative Performance Scale: 20 % Continued [facility] stay due to: inadequate oral pain control (patient on 15L HiFlo O2 ), multiple IV medications needed Discharge planning: other (work towards [facility] ) Counseling and Coordination Total time spent 35 minutes with > 50% of that time assessing patient and discussing hospice and end of life symptoms with pt daughter, and two sons.
[2018-02-14] MEDS: MoRPHine SULFATE 5 MG/0.25 ML UDP PO PRN (16:45)
[2018-02-14] MEDS ORDERED: NURSING VERBAL MED ORDER ONE (17:00)
--- NOTE | 2018-02-14 19:04 | Progress Note ---
Internal Med Progress Note Date of Service: Feb 14, 2018. Provider Documentation: SUBJECTIVE: pt remains in High flow 02 more awake today ,able to talk with family although episodes of confusion ( hallucination noted ) getting intermittent Iv morphine 1 mg q 2-3 hrs for discomfort ( ordered for q 1 hr PRN ) appreciate input form Hospice care Roxanol added pt will qualify for inpatient hospice but need to be transitioned to NRB /Face mask -with as needed IV Morphine for discomfort /air hunger discussed the option with Family - /son and daughter reluctant to take pt off the high flow 02 -as pt is fairly stable on it , able to talk and communicate , able to eat on Mask and IV morphine pt will not be able to do any of it as long as he is not uncomfortable -family does not want to change anything understands that it will prevent pt to be transitioned to in patient hospice OBJECTIVE: Vital Signs-as noted below Exam: General-more awake today . on high flow 02 , awake , no apparent distress noted Lungs diffuse wheeze/rales in all lung mohr, very poor air entry Heart-tachycardia Abdomen- normal bowel sounds, soft Neuro: awake with episodes of confusion Lab data as noted below. ASSESSMENT & PLAN: ACUTE HYPOXEMIC RESPIRATORY FAILURE/ARDS End-stage/terminal status-High flow 02 continued none /minimum chance of recovering form pulmonary damage Attempt done to transition patient to face mask Patient developed severe shortness of breath/desaturates quickly to 60-75% on 10 L oxygen via face mask Pulmonology has been following pt closely Prognosis remains Grim Chest x-ray shows no change in consolidative infiltrate on lung field/with right upper lobe pneumothorax Serial chest x-ray showed no change in the size of pneumothorax Pulmonology discussed the case with family members: Placing a chest tube will not provide any improvement from overall respiratory failure Since life expectancy/prognosis remains extremely poor After discussion with pulmonology/family members-palliative care consult requested family understand expectancy is limited/chance of recovery remains extremely poor Hospice /palliative care involved Family does not want pt to return home D/w family for transition to Face mask /NRB with support of IV morphine so pt does not feel air hunger -in order to admit pt to in patient hospice family not comfortable with the transition yet wants to continue high flow 02 diet changed to full liquid -as will be easier for pt to eat family can to bring food from home if pt prefers Will continue High flow 02 for now daily assessment of patient status will continued to done over all Prognosis is very grim CODE STATUS: DNR/DNI Disposition pt will need continued in patient care due to severe respiratory failure Palliative care consulted appreciate input Given requirement for high flow oxygen-in patient can not be done family at present not agreeable to increased the morphine to counter symptoms of shortness of breath/dyspnea dyspnea and transition to nonrebreather mask Vital Signs: Date Time Temp Pulse Resp B/P (MAP) Pulse Ox O2 Delivery O2 Flow Rate FiO2 02/14/18 09:30 High Flow Oxygen 50.0 60 02/14/18 00:05 High Flow Oxygen 50.0 60 02/13/18 20:05 High Flow Oxygen 50.0 60
[2018-02-14] MEDS: TAMSULOSIN HCL 0.4 MG CAP PO SCH (21:13)
[2018-02-15] MEDS: CHECK SCOPOLAMINE PATCH PLACEMENT SCH ×2 (08:25→20:59)
[2018-02-15] MEDS: BOOST GLUCOSE CONTROL PO SCH ×3 (08:25→17:00)
[2018-02-15] MEDS: TAMSULOSIN HCL 0.4 MG CAP PO SCH ×2 (09:39→20:00)
[2018-02-15] MEDS: MoRPHine SULFATE 5 MG/0.25 ML UDP PO PRN ×3 (10:28→16:55)
[2018-02-15] MEDS ORDERED: BOOST GLUCOSE CONTROL PO PRN (10:30)
[2018-02-15] MEDS: MoRPHine SULFATE 2 MG/ML CARP IV PRN ×2 (15:31→19:29)
--- NOTE | 2018-02-15 18:06 | Progress Note ---
Medicine Progress Note Date & Time of Visit: Feb 15, 2018 at 18:06. Subjective Patient seen with family surrounding the patient; he was awake and was being given a few sips of his drink. No overnight events noted. Poor appetite noted. IV access has failed and request for midline due to frequent difficulties obtaining IV access. The family requests that ativan not be given to the patient as he became more agitated with it. No other complaints of concerns noted. Objective Physical Exam: GENERAL: Patient is in no acute distress. HEENT: No acute trauma, normocephalic, mucous membranes moist, no nasal congestion, no scleral icterus. NECK: No stridor, trachea is midline. LUNGS: Expiratory wheezes bilaterally, no rhonchi, breath sounds equal. HEART: Without murmurs gallops or rubs, regular rate and rhythm. ABDOMEN: Soft, nontender, bowel sounds positive EXTREMITIES: No cyanosis or edema, appears to be moving all 4 extremities without pain or difficulty, no signs for acute trauma. NEUROLOGIC: Confused, no acute motor or sensory deficits, no focal weakness. SKIN: No rash, no jaundice, no diaphoresis. Assessment & Plan ACUTE HYPOXEMIC RESPIRATORY FAILURE/ARDS: -deemed End-stage/terminal status, but still requiring High flow 02 at 15L to maintain saturations and unable to wean to a face mask -Pulmonary consulted and feel prognosis is grim with no/minimum chance of recovering from the pulmonary damage -multiple failed attempts to transition patient to face mask as patient develops severe shortness of breath/desaturates quickly to 60-75% even on 10 L oxygen via face mask -last CXR showed no change in consolidative infiltrate on lung field/with right upper lobe pneumothorax and no change in the size of pneumothorax -Pulmonology discussed the case with family members: Placing a chest tube will not provide any improvement from overall respiratory failure since life expectancy/prognosis remains extremely poor -Per discussion with pulmonology/family members-palliative care consult requested and family understand that expectancy is limited/chance of recovery remains extremely poor -Hospice/palliative care consulted and following -Family does not want pt to return home, and patient cannot go home with hospice or to a facility with hospice due to oxygen requirements -previous attending discussed with family for transition to face mask/NRB with support of IV morphine so pt does not feel air hunger in order to admit pt to inpatient hospice, but family is not comfortable with the transition yet and want to continue high flow 02 -diet changed to full liquid as will be easier for pt to eat and PRN food from home for comfort as tolerated -morphine IV and oral morphine ordered PRN -patients family request no labs or imaging -family also requests no ativan to be given due increased agitation from ativan -Boost PRN and TID -cheng catheter placed today -mid-line requested as patient unable to get good IV site for IV pain meds Continued [facility] stay due to: abnormal vital signs, multiple IV medications needed, home environment unsafe for pt Discharge planning: other Current Inpatient Medications: Current Inpatient Medications Medications (Trade) Dose Ordered Sig/Krystal Route Start Time Stop Time Status Last Admin Dose Admin Acetaminophen (Tylenol Tab) 650 mg Q4H PRN PO 01/31/18 13:15 03/02/18 13:14 02/03/18 04:09 650 MG Ipratropium [place] (Atrovent 0.02% 0.5MG/2.5ML Neb) 0.5 mg Q4H PRN INH 01/31/18 16:00 03/02/18 15:59 02/13/18 08:23 0.5 MG Levalbuterol (Xopenex 0.63 Mg/ 3 Ml Neb) 0.63 mg Q4H PRN INH 01/31/18 16:00 03/02/18 15:59 02/13/18 08:24 0.63 MG Guaifenesin (Robitussin Sugar Free Syrup) 100 mg Q6H PRN PO 02/01/18 22:15 03/03/18 22:14 02/03/18 04:09 100 MG Enteral Nutritional Formula (Boost Glucose Control) 1 can TIDM PO 02/03/18 09:00 03/05/18 07:59 02/15/18 12:25 1 CAN Morphine Sulfate (MoRPHine SULFATE INJ) 1 mg Q1H PRN IV 02/12/18 18:15 02/26/18 18:14 02/15/18 15:31 1 MG Scopolamine (Transderm-Scop Patch) 1.5 mg Q72H TD 02/12/18 18:30 03/14/18 18:29 02/12/18 18:33 1.5 MG Miscellaneous (Remove Transderm-Scop Patch) 1 ea Q72H N/A 02/15/18 18:30 5/24/18 18:29 Miscellaneous Information (Check Scopolamine Patch Placement) 1 ea QS N/A 02/13/18 00:00 03/15/18 00:00 02/15/18 08:25 1 EA Atropine Sulfate (ATROPINE SULFATE 1% Op Soln 2 ML) 2 drops Q2H PRN SL 02/12/18 18:15 03/14/18 18:14 Lorazepam 1 mg/ Syringe 1 ml @ 0.5 mls/min Q4 PRN IV 02/12/18 19:45 03/14/18 19:44 02/15/18 09:39 0.5 MLS/MIN Morphine Sulfate (Roxanol Oral Soln) 5 mg Q2H PRN PO 02/14/18 12:45 02/28/18 12:44 02/15/18 16:55 5 MG Tamsulosin HCl (Flomax Cap) 0.4 mg BID PO 02/14/18 20:00 03/16/18 19:59 02/15/18 09:39 0.4 MG Enteral Nutritional Formula (Boost Glucose Control) 1 can Q4H PRN PO 02/15/18 10:30 03/17/18 10:29 Heparin Sodium (Porcine) (Heparin 10 Unit/ ml 5 ml Flush) 1 ml PRN PRN FLUSH 02/15/18 15:15 03/17/18 15:14
[2018-02-15] MEDS ORDERED: SODIUM CHLORIDE 0.9% 1000ML 1,000 ML IV SCH (20:06)
[2018-02-15] MEDS ORDERED: MoRPHine SULFATE 2 MG/ML CARP IV STA (20:06)
[2018-02-15] MEDS ORDERED: NALOXONE HCL 0.4 MG/1 ML VIAL/CARP IV PRN (20:15)
[2018-02-15] MEDS ORDERED: LORAZEPAM INJ 1 MG in SYRINGE 0.5 ML IV PRN ×2 (20:15→20:30)
[2018-02-15] MEDS ORDERED: MoRPHine SULFATE 1 MG/ML 50 ML PCA CASS IV PRN (20:15)
[2018-02-15] MEDS ORDERED: MoRPHine SULF/NSS 250MG/250ML 250 ML IV SCH (20:30)
[2018-02-15] MEDS: SCOPOLAMINE 1.5 MG TDSY TD SCH (20:58)
[2018-02-16] MEDS: BOOST GLUCOSE CONTROL PO SCH ×3 (08:00→17:00)
[2018-02-16] MEDS: TAMSULOSIN HCL 0.4 MG CAP PO SCH (08:00)
[2018-02-16] MEDS: CHECK SCOPOLAMINE PATCH PLACEMENT SCH ×3 (08:15→16:16)
--- NOTE | 2018-02-16 17:27 | Progress Note ---
Medicine Progress Note Date & Time of Visit: Feb 16, 2018 at 17:27. Subjective Patient was started on a morphine drip last evening, he was reportedly very agitated and confused and appeared tachypneic last evening. The patient had a midline placed as well. He occasionally opens his eyes upon repositioning but has been lethargic most of today. No PO intake. No other events noted. Objective Physical Exam: GENERAL: Patient is in no acute distress. HEENT: No acute trauma, normocephalic, mucous membranes moist, no nasal congestion, no scleral icterus. NECK: No stridor, trachea is midline. LUNGS: Rhonchi bilaterally, no crackles, breath sounds equal. HEART: Without murmurs gallops or rubs, regular rate and rhythm. ABDOMEN: Soft, nontender, bowel sounds positive EXTREMITIES: No cyanosis or edema, no signs for acute trauma. NEUROLOGIC: Lethargic, spontaneous movements noted SKIN: No rash, no jaundice, no diaphoresis. Assessment & Plan ACUTE HYPOXEMIC RESPIRATORY FAILURE/ARDS: -deemed End-stage/terminal status, but still requiring High flow 02 at 15L to maintain saturations and unable to wean to a face mask -Pulmonary consulted and feel prognosis is grim with no/minimum chance of recovering from the pulmonary damage -multiple failed attempts to transition patient to face mask as patient develops severe shortness of breath/desaturates quickly to 60-75% even on 10 L oxygen via face mask -last CXR showed no change in consolidative infiltrate on lung field/with right upper lobe pneumothorax and no change in the size of pneumothorax -Pulmonology discussed the case with family members: Placing a chest tube will not provide any improvement from overall respiratory failure since life expectancy/prognosis remains extremely poor -Per discussion with pulmonology/family members-palliative care consult requested and family understand that expectancy is limited/chance of recovery remains extremely poor -Hospice/palliative care consulted and following -Family does not want pt to return home, and patient cannot go home with hospice or to a facility with hospice due to oxygen requirements -previous attending discussed with family for transition to face mask/NRB with support of IV morphine so pt does not feel air hunger in order to admit pt to inpatient hospice, but family is not comfortable with the transition yet and want to continue high flow 02 -diet changed to full liquid as will be easier for pt to eat and PRN food from home for comfort as tolerated -morphine IV and oral morphine ordered PRN -patients family request no labs or imaging -family also requests no ativan to be given due increased agitation from ativan -Boost PRN and TID -cheng catheter placed today -mid-line requested as patient unable to get good IV site for IV pain meds Continued [facility] stay due to: abnormal vital signs, multiple IV medications needed, home environment unsafe for pt Discharge planning: other Current Inpatient Medications: Current Inpatient Medications Medications (Trade) Dose Ordered Sig/Krystal Route Start Time Stop Time Status Last Admin Dose Admin Acetaminophen (Tylenol Tab) 650 mg Q4H PRN PO 01/31/18 13:15 03/02/18 13:14 02/03/18 04:09 650 MG Ipratropium [place] (Atrovent 0.02% 0.5MG/2.5ML Neb) 0.5 mg Q4H PRN INH 01/31/18 16:00 03/02/18 15:59 02/13/18 08:23 0.5 MG Levalbuterol (Xopenex 0.63 Mg/ 3 Ml Neb) 0.63 mg Q4H PRN INH 01/31/18 16:00 03/02/18 15:59 02/13/18 08:24 0.63 MG Guaifenesin (Robitussin Sugar Free Syrup) 100 mg Q6H PRN PO 02/01/18 22:15 03/03/18 22:14 02/03/18 04:09 100 MG Enteral Nutritional Formula (Boost Glucose Control) 1 can TIDM PO 02/03/18 09:00 03/05/18 07:59 02/15/18 12:25 1 CAN Scopolamine (Transderm-Scop Patch) 1.5 mg Q72H TD 02/12/18 18:30 03/14/18 18:29 02/15/18 20:58 1.5 MG Miscellaneous (Remove Transderm-Scop Patch) 1 ea Q72H N/A 02/15/18 18:30 03/17/18 18:29 02/15/18 20:59 1 EA Miscellaneous Information (Check Scopolamine Patch Placement) 1 ea QS N/A 02/13/18 00:00 03/15/18 00:00 02/16/18 16:16 1 EA Atropine Sulfate (ATROPINE SULFATE 1% Op Soln 2 ML) 2 drops Q2H PRN SL 02/12/18 18:15 03/14/18 18:14 Morphine Sulfate (Roxanol Oral Soln) 5 mg Q2H PRN PO 02/14/18 12:45 02/28/18 12:44 02/15/18 16:55 5 MG Tamsulosin HCl (Flomax Cap) 0.4 mg BID PO 02/14/18 20:00 03/16/18 19:59 02/15/18 09:39 0.4 MG Enteral Nutritional Formula (Boost Glucose Control) 1 can Q4H PRN PO 02/15/18 10:30 03/17/18 10:29 Heparin Sodium (Porcine) (Heparin 10 Unit/ ml 5 ml Flush) 1 ml PRN PRN FLUSH 02/15/18 15:15 03/17/18 15:14 Lorazepam 1 mg/ Syringe 1 ml @ 1 mls/min Q15M PRN IV 02/15/18 20:15 03/17/18 20:14 Lorazepam 1 mg/ Syringe 1 ml @ 1 mls/min Q15M PRN IV 02/15/18 20:30 03/17/18 20:29 Morphine Sulfate/ Dextrose 250 ml @ 0 mls/hr Q0M IV 02/15/18 20:30 03/01/18 20:29 02/15/18 20:51 2 MLS/HR
--- NOTE | 2018-02-16 22:16 | Progress Note ---
Internal Med Progress Note Date of Service: Feb 16, 2018. Provider Documentation: SUBJECTIVE: Was called to pronounce patient . OBJECTIVE: Vital Signs-as noted below Exam: General-Unresponsive Eyes-pupils dilated and fixed and non responsive to light Neck-no carotid pulse palpable Lungs-no spontaneous breathing, no lung sounds heard on auscultation Heart-No heart sounds on auscultation Lab data as noted below. ASSESSMENT & PLAN: Patient pronounced at 20:20 on February 16 2018. Vital Signs: Date Time Temp Pulse Resp B/P (MAP) Pulse Ox O2 Delivery O2 Flow Rate FiO2 02/16/18 16:00 High Flow Oxygen 50.0 60 02/16/18 08:00 High Flow Oxygen 50.0 60 02/16/18 00:00 High Flow Oxygen 50.0 60
--- NOTE | 2018-02-17 07:23 | Discharge Summary ---
Discharge Summary Date of Service Feb 17, 2018. Discharge Summary Admission Date: Jan 31, 2018 at 13:05 Discharge Disposition: Principal Diagnosis: ARDs, respiratory failure Admission Information HPI (per Admitting provider): Pt is 87 y/o M with PMH DM II, CKD III, HTN, a flutter on Coumadin presented to ER with complaints of increased cough and shortness of breath. Patient was admitted to hospital 12/15/17-01/19/18 for acute respiratory failure, influenza A , MSSA pneumonia, OKSANA and discharged to [facility]. Patient was treated with Zosyn, course of azithromycin. Rocephin from 12/15/17-. Vancomycin on 12/17/17. Also was on Zyvox and for voriconazole, doxycycline on 12/18/17-12/22/17 blood cultures were negative. Patient was seen by cardiology, pulmonology, infectious disease during last admission. Developed thrombocytopenia. Amiodarone was stopped during last admission secondary to possible lung toxicity. Flomax was stopped secondary to orthostatic hypotension. Patient reports has been feeling sick since discharge and having difficulty doing physical therapy secondary to weakness, shortness of breath with exertion and neck pain. Reports continued cough productive of clear sputum. Feels cough is worse in the past couple of days. Patient admits has not been doing his incentive spirometry as directed. He has been wearing PERRY hose and reports lower extremity edema. Patient reports wearing oxygen 1 L NC at rest and 3 mL with exertion. Family reports noticed yesterday his oxygen was turned up to 7L in family reports questioned [facility] staff who then turned it back down to 3 L. Reported temp of 100.4 F this morning. Patient states Flomax was4 secondary to trouble urinating. He denies any dizziness, lightheadedness or syncope. Reports has had poor appetite. Patient' s family reports wonders if some of poor appetite was secondary to patient being on sodium restrictions patient used to eating salty diet. Denies diaphoresis, N/V/D/C, melena, hematochezia, METZGER, dizziness, syncope, vision changes, CP,orthopnea, PND, palpitations, hemoptysis, sore throat, choking, otalgia, rhinorrhea, abdominal pain, rashes, dysuria, hematuria. In ER temp 38 C, 74% on room air up to 95% on 6L. Pulse 100, respirations 24, BP: 101/51. NA: 132, glucose: 191, WBC: 12, Hgb: 11 (baseline), POC lactic acid 1.6, magnesium: 1.7, Cr: 1.4 (baseline), EKG NSR. CXR: Read as no change in the bilateral airspace opacities and trace bilateral pleural effusions from CXR 01/06. Given Tylenol, Levaquin 750 mg IV, vancomycin IV, Zosyn IV, 250 mL NSS bolus, magnesium 800 mg p.o., calcium gluconate 1000 mg IV, Phospha 250, 2 tabs. ECHO 01/03/18: EF 60/65% MRI CERVICAL SPINE: 1. Moderate multilevel cervical spondylosis. 2. No destructive bony process is seen. 3. The cervical spinal cord is normal in morphology and signal intensity. CT CHEST 01/01/18: 1. Persistent multifocal multilobar distribution of groundglass and consolidative opacities with mildly improved aeration of the lingula. Disease within the left lower and right upper lobes demonstrate increased consolidation from comparison. 2. Trace right pleural effusion appears unchanged with resolution of the previously described trace left pleural effusion. 3. Slightly decreased adenopathy of the mediastinum, likely reactive. 4. Layering increased attenuation of the gallbladder lumen suggest cholelithiasis. 5. Emphysema VENOUS DOPPLER 01/03/18: Age-indeterminate deep venous thrombosis within the right popliteal and peroneal veins. Physical Exam (per Admitting): General Appearance: WD/WN, + pertinent finding (+ repeated non-productive coughing) Head: normocephalic, atraumatic Eyes: normal inspection, sclerae normal ENT: hearing grossly normal, pharynx normal, + pertinent finding (Mucous membranes moist) Neck: supple, no JVD, trachea midline Respiratory/Chest: no accessory muscle use, + decreased breath sounds, + rales (Throughout), + pertinent finding (respirations 24) Cardiovascular: regular rate, rhythm (Rate 98), no murmur Abdomen/GI: normal bowel sounds, non tender, soft Back: no CVA tenderness Extremities/Musculoskelatal: no calf tenderness, normal capillary refill, non-tender, + pedal edema (2+ bilateral) Neurologic/Psych: alert, normal mood/affect, oriented x 3 Skin: normal color, warm/dry Hospital Course Patient pronounced at 20:20 on February 16 2018. Total time spent on discharge = 35 This includes examination of the patient, discharge planning, medication reconciliation, and communication with other providers. Discharge Instructions None
== END 2018-02-16 09:00 | disposition expired | DRG 193 ==
LOC: C.EDB 10:02 → EDBD 10:02 → UNDOADMIN 13:05 → C.MED 13:05 → ENRESERV 14:02 → C.MED 23:01 → C.4E 02-12 08:06 → ENRESERV 02-12 19:36
PROVIDERS: ADMIT Hospitalist; ATTEND Internal Medicine
PROC: 03H733Z Insertion of Infusion Device into Right Brachial Artery, Percutaneous Approach (ICD-10-PCS; principal; 2018-02-15)
DX: J18.9 Pneumonia, unspecified organism (principal); J96.01 Acute respiratory failure with hypoxia; I82.441 Acute embolism and thrombosis of right tibial vein; I82.491 Acute embolism and thrombosis of other specified deep vein of right lower extremity; E87.1 Hypo-osmolality and hyponatremia; J80 Acute respiratory distress syndrome; J93.83 Other pneumothorax; J44.0 Chronic obstructive pulmonary disease with (acute) lower respiratory infection; I48.92 Unspecified atrial flutter; Z51.5 Encounter for palliative care; R91.1 Solitary pulmonary nodule; J84.89 Other specified interstitial pulmonary diseases; E83.51 Hypocalcemia; E83.42 Hypomagnesemia; E83.39 Other disorders of phosphorus metabolism; Z66 Do not resuscitate; E11.22 Type 2 diabetes mellitus with diabetic chronic kidney disease; I13.10 Hypertensive heart and chronic kidney disease without heart failure, with stage 1 through stage 4 chronic kidney disease, or unspecified chronic kidney disease; N18.3 Chronic kidney disease, stage 3 (moderate); N40.0 Benign prostatic hyperplasia without lower urinary tract symptoms; M47.812 Spondylosis without myelopathy or radiculopathy, cervical region; H91.90 Unspecified hearing loss, unspecified ear; Z79.899 Other long term (current) drug therapy; Z79.01 Long term (current) use of anticoagulants; Z79.4 Long term (current) use of insulin; Z87.01 Personal history of pneumonia (recurrent); Z87.891 Personal history of nicotine dependence; Z83.3 Family history of diabetes mellitus; Z83.49 Family history of other endocrine, nutritional and metabolic diseases; Z82.3 Family history of stroke